=== PATIENT | male | born 1930 | race Caucasian/White ===

== ENCOUNTER → 2016-05-07 12:03 | Day surgery (SDC) | payer MEDICARE, BC ==
[~2016-05-07 12:03] MED LIST: Buffered Lidocaine 1% SYRIN* 3 ML/SYR SYRINGE INTRADERM ONE; EPINEPHrine AMP 1 MG/ML ONE; Lidocaine 2% PF* 5 ML VIAL ONE; Lidocaine 4% TOPICAL* 50 ML TOP.SOLN ONE; Oxymetazoline 0.05% NASAL SPR* 15 ML BTL ONE; Propofol* 10 MG/ML 20 ML BTL IV PUSH ONE; Succinylcholine* 20 MG/ML 10 ML VIAL ONE; fentaNYL* 50 MCG/ML 2 ML VIAL (100 MCG VIAL) ONE
[2016-05-07 14:45] VITALS: BP 139/67
--- NOTE | 2016-05-08 18:52 | OP ---
DATE OF OPERATION: 05/07/16 - [facility] DATE OF : [birth year] SURGEON: Carlos Stubsb MD ANESTHESIOLOGIST: Cristi Wolfe MD ANESTHESIA: General endotracheal anesthesia. PRE-OP DIAGNOSIS: Neoplasm, vocal cord malignant. POST-OP DIAGNOSIS: Neoplasm, vocal cord malignant. OPERATIVE PROCEDURE: Microlaryngoscopy with biopsy and KTP laser ablation of the left vocal card mass under general endotracheal anesthesia. COMPLICATIONS: None. CONDITION: Good. SPECIMENS: Left vocal cord biopsy. DESCRIPTION OF PROCEDURE: The patient was taken to the operating room, placed in supine position on the operating table. General anesthesia was induced and he was orotracheally intubated with laser safe endotracheal tube, turned, and draped for the surgery and the laryngoscope was inserted and suspended from the suspension system. Microscope brought in. There was a firm exophytic mass in the left anterior vocal cord, very suspicious for recurrence of his cancer. Biopsies were taken. I then used the KTP laser to ablate it pass its base into the deep layer of the vocal cord. It was in the very anterior aspect of the vocal cord up to the anterior commissure, did not cross the commissure and did involve the right vocal cord. I used a power setting of 8. Once this was done , the laryngoscope was released and removed, extubated uneventfully and transferred to the recovery room in stable condition. [id number]/[facility] #: [id number] MTDD
== END | disposition home or self-care (01) ==
LOC: OR 12:03
PROVIDERS: ATTEND Otolaryngology
DX: C32.0 Malignant neoplasm of glottis (principal); J44.9 Chronic obstructive pulmonary disease, unspecified; I25.5 Ischemic cardiomyopathy; I48.91 Unspecified atrial fibrillation; Z95.5 Presence of coronary angioplasty implant and graft; E11.8 Type 2 diabetes mellitus with unspecified complications; Z79.4 Long term (current) use of insulin; Z87.891 Personal history of nicotine dependence
CPT/HCPCS: 88305; A9270-GY; J0171; J0330; J2704; J3010

== ENCOUNTER 2016-09-01 11:31 | Observation (INO) | payer MEDICARE, BC, OTHER ==
[~2016-09-01 11:31] MED LIST changes: +Buffered Lidocaine 0.9% SYRIN* 5 ML/SYR SYRINGE INTRADERM ONE; -Buffered Lidocaine 1% SYRIN* 3 ML/SYR SYRINGE INTRADERM ONE; -EPINEPHrine AMP 1 MG/ML ONE; +Famotidine IV* 10 MG/ML 2 ML (20 mg) IV ONE; -Lidocaine 2% PF* 5 ML VIAL ONE; -Lidocaine 4% TOPICAL* 50 ML TOP.SOLN ONE; +Metoclopramide TAB* 10 MG PO ONE; -Oxymetazoline 0.05% NASAL SPR* 15 ML BTL ONE; -Propofol* 10 MG/ML 20 ML BTL IV PUSH ONE; -Succinylcholine* 20 MG/ML 10 ML VIAL ONE; -fentaNYL* 50 MCG/ML 2 ML VIAL (100 MCG VIAL) ONE
[2016-09-01] MEDS ORDERED: Metoclopramide TAB* 10 MG ONE (11:55)
[2016-09-01] MEDS ORDERED: Famotidine IV* 10 MG/ML 2 ML (20 mg) ONE (11:55)
[2016-09-01] MEDS ORDERED: Buffered Lidocaine 0.9% SYRIN* 5 ML/SYR SYRINGE ONE (11:56)
[2016-09-01] MEDS ORDERED: Methylene Blue 0.5 %* 50 MG/10 ML AMP IV ONE (12:24)
[2016-09-01] MEDS ORDERED: Cisatracurium* 2 MG/ML MDV 5 ML ONE (13:19)
[2016-09-01] MEDS ORDERED: Lidocaine 2% PF * 5 ML VIAL ONE (13:19)
[2016-09-01] MEDS ORDERED: Dexamethasone IV* 4 MG/ML 1 ML (4 MG) ONE ×2 (13:19→14:05)
[2016-09-01] MEDS ORDERED: Midazolam* 1 MG/ML 5 ML VIAL (5 MG) ONE (13:19)
[2016-09-01] MEDS ORDERED: Propofol* 10 MG/ML 20 ML BTL IV PUSH ONE (13:19)
[2016-09-01] MEDS ORDERED: Ondansetron INJ* 2 MG/ML VIAL ONE (13:19)
[2016-09-01] MEDS ORDERED: fentaNYL* 50 MCG/ML 2 ML VIAL (100 MCG VIAL) ONE ×2 (13:19→17:02)
[2016-09-01] MEDS ORDERED: EPINEPHrine AMP 1 MG/ML ONE (13:28)
[2016-09-01] MEDS ORDERED: Lidocaine 4% TOPICAL* 50 ML TOP.SOLN ONE (13:28)
[2016-09-01] MEDS ORDERED: Oxymetazoline 0.05% NASAL SPR* 15 ML BTL ONE (13:28)
[2016-09-01] MEDS ORDERED: Ondansetron INJ* 2 MG/ML VIAL IV PRN ×3 (13:38→20:21)
[2016-09-01] MEDS ORDERED: fentaNYL* 50 MCG/ML 2 ML VIAL (100 MCG VIAL) IV PRN (13:38)
[2016-09-01] MEDS ORDERED: Levalbuterol 0.63MG/3ML NEB INH PRN (13:38)
[2016-09-01] MEDS ORDERED: Morphine INJ* 2 MG/ML 1 ML SYRINGE IV PRN (19:50)
[2016-09-01] MEDS ORDERED: Dextrose 50% Syringe 50 ML* 25 GM/50 ML SYRINGE IV PUSH PRN (19:55)
[2016-09-01] MEDS ORDERED: Acetaminophen ADULT LIQ* 650 MG/20.3 ML UDC PO PRN (20:16)
[2016-09-01] MEDS ORDERED: Ibuprofen ADULT LIQ* 600 MG/30 ML UDC PO PRN (20:17)
[2016-09-01] MEDS ORDERED: HYDROcodone/ACET. 7.5/325 LIQ* 15 ML UDC PO PRN ×2 (20:18→20:19)
[2016-09-01 20:22] LABS: BUN/Creatinine Ratio 17.9 (8-20); Calcium 9.4 mg/dL (8.6-10.3); EGFR African American 46.4 (>60); EGFR Non-African American 36.1 (>60); Potassium 5.4 mmol/L (3.5-5.0)
[2016-09-01] MEDS ORDERED: Ondansetron ODT TAB* 4 MG PO PRN (20:22)
[2016-09-01] MEDS ORDERED: Ondansetron INJ* 2 MG/ML VIAL IM PRN (20:22)
[2016-09-01] MEDS ORDERED: Sodium Polystyrene ORAL.SOL* 15 GM/60 ML BTL PO ONE (20:38)
[2016-09-01] MEDS ORDERED: NS 0.9% 1000 ML* 1,000 ML IV SCH (20:45)
[2016-09-01] MEDS ORDERED: Enoxaparin(*) 30 MG/0.3 ML SYR SUBCUT SCH (21:00)
[2016-09-01] MEDS ORDERED: Atorvastatin* 20 MG TAB PO SCH (21:00)
[2016-09-01] MEDS: Insulin LISPRO* 1 UNITS UNIT SUBCUT SCH (21:14)
--- NOTE | 2016-09-02 | HP ---
CC: Dr. Cabrera; Dr. Stubbs * ADMISSION HISTORY AND PHYSICAL: DATE OF ADMISSION: 09/01/16 PRIMARY CARE PROVIDER: Dr. Cabrera. ENT SURGEON: Dr. Stubbs. ADMITTING PROVIDER: CHRISTINE Anderson. SUPERVISING PHYSICIAN: Xavi Rowland MD. * (dictated by CHRISTINE Anderson) CHIEF COMPLAINT: Laryngeal cancer, status post microlaryngoscopy with laser resection. HISTORY OF PRESENT ILLNESS: This is an 85-year-old gentleman with non-insulin dependent diabetes, hypertension, known vocal cord cancer, coronary artery disease, status post PCI and CABG, atrial fibrillation, and chronic kidney disease, who underwent planned laser resection of vocal cord nodule with Dr. Stubbs earlier today. Dr. Stubbs states that the lesion was deep and the resection slightly larger than initially planned, but there were no complications with the procedure and the patient appeared to do well in the recovery area. Due to concern for possible airway edema, recommendation was made to admit the patient to ICU for closer monitoring overnight. In regards to the patient's chronic medical conditions, the patient states that he was recently taken off his oral hypoglycemic agents, specifically his metformin and glipizide. He was told to stop his metformin due to his renal function and then we started on glipizide as a replacement, but that made him dizzy and he has not taken anything since. He checks his glucose as recommended and states that his fasting blood glucose is usually about 140 or so. The patient was seen by Dr. Lebron, his primary branch sales manager before this planned procedure. He is managed for coronary artery disease and atrial fibrillation. Of note, the patient is not on any form of chronic anticoagulation apart from his antiplatelet medication. The patient was unsure of why this may be and I did not see it addressed in his recent cardiology note. It looks like his last cardiac imaging was in July 2015, which demonstrated a normal ejection fraction without evidence of ischemia or infarct. The patient states that he has a moderate sore throat at the moment, but is otherwise feeling fine. He specifically denies any cough or shortness of breath. No abdominal pain, nausea or vomiting. He denies any recent illness or fever. PAST MEDICAL HISTORY: 1. Non-insulin dependent diabetes - no current hypoglycemic agents. 2. Hypertension. 3. Vocal cord cancer, status post laser ablation in August 2015 as well as today. 4. Coronary artery disease, status post CABG and prior PCI. 5. Atrial fibrillation, not anticoagulated. 6. Chronic kidney disease, stage 3. PAST SURGICAL HISTORY: 1. CABG. 2. Carpal tunnel release. 3. PCI. 4. Prior microlaryngoscopy with laser resection. HOME MEDICATIONS: 1. Amlodipine 10 mg p.o. daily. 2. Aspirin 81 mg p.o. daily. 3. Atorvastatin 20 mg p.o. daily. 4. Vitamin B12 500 mcg p.o. daily. 5. Isosorbide 30 mg p.o. daily. 6. Lisinopril 40 mg p.o. daily. 7. Spironolactone 25 mg p.o. daily. 8. Terazosin 2 tablets p.o. daily. SOCIAL HISTORY: The patient lives at home with his . 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 He has occasional alcohol and quit smoking greater than 30 years ago. REVIEW OF SYSTEMS: As noted above in HPI. All other systems reviewed and considered negative. PHYSICAL EXAMINATION GENERAL: This is a very pleasant elderly gentleman, who appears younger than his stated age. He is lying in the hospital bed in no acute distress. VITAL SIGNS: Recent vitals; temperature 98.6 degrees Fahrenheit, pulse 111 beats per minute, respiratory rate is 20, oxygen saturation 98% on 5 L, and blood pressure 148/71 mmHg. HEENT: Head is normocephalic, atraumatic. Mucous membranes are pink and moist. Oropharynx is unremarkable on exam. NECK: Neck is supple and free of lymphadenopathy. RESPIRATORY: Lungs are clear to auscultation without wheezes, crackles, or rhonchi. CARDIOVASCULAR: Heart has a regular rate and rhythm without murmurs, rubs, or gallops. ABDOMEN: Abdomen is soft and nontender to palpation. EXTREMITIES: No edema noted. LABORATORY EVALUATION: Reviewed labs from 08/26/16. CBC showed a white blood cell count of 7500, hemoglobin of 12.1 g/dL, and a platelet count of 259,000. Basic metabolic panel showed sodium of 133, potassium of 5.7, serum bicarb of 19 , BUN 40, creatinine 1.93 and hemoglobin A1c of 6.8%. Potassium this morning prior to surgery was 5.4 mmol/L. IMAGING: EKG shows a rate controlled atrial fibrillation. ASSESSMENT AND PLAN: This is an 85-year-old gentleman with laryngeal cancer, status post microlaryngoscopy with laser resection completed by Dr. Stubbs earlier today. Hospitalist group has been asked to admit this patient postoperatively for airway monitoring. 1. Laryngeal cancer, status post microlaryngoscopy with laser resection - admitted to ICU for overnight observation. Pain is adequately controlled at this time. No restrictions per ENT on oral intake. 2. Hyperkalemia - patient was hyperkalemic on the preop labs completed last week as well as this morning. Repeat basic metabolic panel has been ordered at this time. We will hold his spironolactone and lisinopril for now. Further management per repeat results. 3. Non-insulin dependent diabetes - last hemoglobin A1c was 6.8%. Patient states he is not on any oral medications at this time at home. We will monitor glucose with irregular fingersticks at mealtimes and before bed and cover hyperglycemia with sliding scale Humalog. 4. Coronary artery disease - patient is asymptomatic and will continue medical management. 5. Atrial fibrillation - patient is mildly tachycardic postoperatively, but is otherwise hemodynamically stable. He is not anticoagulated for unknown reasons. We will plan to continue his aspirin. 6. Hypertension - patient is normotensive at this time and continue home antihypertensives with the exception of lisinopril and spironolactone due to his hyperkalemia. 7. Stage 3 chronic kidney disease - avoid nephrotoxic agents including NSAIDs for this patient. Creatinine last week was 1.9. 8. Code status. Patient is full code. 9. Healthcare proxy is his . 10. DVT prophylaxis. Patient will be started on renally adjusted subcu Lovenox and SCD's. 11. Disposition: Patient is being admitted to observation status with anticipated possible discharge for tomorrow morning. CHRISTINE ANDERSON [id number]/[facility] #: [id number] [facility]ENTER[facility]ista
[2016-09-02 04:57] LABS: Hematocrit 38 % (42-52); Hemoglobin 12.7 g/dl (14.0-18.0); Mean Corpuscular HGB Conc 34 g/dl (31-36); Mean Corpuscular Hemoglobin 31 pg (27-31); Mean Corpuscular Volume 91 fL (80-94); Mean Platelet Volume 8 um3 (7.4-10.4); Red Blood Count 4.15 10^6/ul (4.0-5.4); Red Cell Distribution Width 15 % (10.5-15); White Blood Count 15.9 10^3/ul (3.5-10.8)
[2016-09-02 05:12] LABS: BUN/Creatinine Ratio 18.6 (8-20); Calcium 9.4 mg/dL (8.6-10.3); EGFR African American 43.9 (>60); EGFR Non-African American 34.1 (>60); Potassium 5.2 mmol/L (3.5-5.0)
[2016-09-02] MEDS ORDERED: amLODIPine TAB* 5 MG PO SCH (05:15)
--- NOTE | 2016-09-02 05:46 | OP ---
DATE OF OPERATION: 09/01/16 - ROOM #ICU-03 DATE OF : [birth year] SURGEON: Carlos Stubbs MD ANESTHESIOLOGIST: Ernesto Chavez MD ANESTHESIA: General endotracheal. PRE-OP DIAGNOSIS: Laryngeal carcinoma stage T2N0M0. POST-OP DIAGNOSIS: Laryngeal carcinoma stage T2N0M0. OPERATIVE PROCEDURE: Microlaryngoscopy with KTP laser resection of a laryngeal carcinoma under general endotracheal anesthesia. COMPLICATIONS: Good. SPECIMEN: Multiple frozens and one permanent specimen. 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 DESCRIPTION OF PROCEDURE: He was taken to the operating room for resection and placed on the supine position on the operating room table. General anesthesia was induced, and she was orotracheally intubated with a laser-safe tube. All of the surgery was done with low oxygen laser safety procedure. It was an exophytic mass at the anterior commissure; and, under microscopy, we could see it was inferior to the vocal cords as well as at the level of the vocal cords. I took the laser and initially resected it, transecting the anterior third of the vocal cords on either side and coring out the tumor underneath it and deep to it, and took it out as a unit, sending that to pathology. I took some frozen sections and, ventrally, meeting right at the anterior aspect of the resection to left to that and to right to that and along the left vocal cord, he had some positive margins. I went back; we resected some more and used the lasers ablate to ablate, did more frozens, had some more positive margins at the anterior aspect in the middle of the resection site, and then I went back and did some more ablation and resection; and, unfortunately, I came underneath the cricoid cartilage and could not resect anymore in this area. I basically cored out the whole anterior commissure including the anterior half of the membranous vocal cords, the complete anterior commissure from just above the vocal cords down and about a centimeter below the vocal cords in the subglottic region, the margin with the undersurface of the cricoid cartilage anatomically anterolateral , and left and lateral right of my resection site. [id number]/[facility] #: [id number] [facility] [place]
[2016-09-02] MEDS: Insulin LISPRO* 1 UNITS UNIT SUBCUT SCH (08:44)
[2016-09-02] MEDS ORDERED: Terazosin CAP* 1 MG PO SCH (09:00)
[2016-09-02] MEDS ORDERED: Isosorbide Mononitrate ER TAB* 30 MG PO SCH (09:00)
[2016-09-02] MEDS ORDERED: Aspirin Low Dose CHEW TAB* 81 MG PO SCH (09:00)
[2016-09-02 10:13] VITALS: BP 124/65
--- NOTE | 2016-09-03 03:31 | DS ---
CC: Dr. Cabrera * DISCHARGE SUMMARY: DATE OF ADMISSION: 09/01/16 DATE OF DISCHARGE: 09/02/16 HOSPITAL COURSE: This patient is an 85-year-old white male with a history of laryngeal CA, coronary artery disease, A-fib, and hypertension, who was admitted for a laryngectomy, which was performed by Dr. Stubbs. The patient had a partial laryngectomy, which was performed without incident, and was sent to the intensive care unit postoperatively. The patient subsequently did well, and was discharged the following AM, with a followup appointment with Dr. Stubbs scheduled for about 1 week. FINAL DISCHARGE DIAGNOSES: 1. Laryngeal carcinoma, status post partial laryngectomy. 2. Hypertension. 3. Coronary artery disease. 4. Atrial fibrillation. [id number]/[facility] #: [id number] MTDCalista
== END 2016-09-02 10:40 | disposition home or self-care (01) ==
LOC: OR 11:31 → ICU 18:55 → INTOOBSV 18:55
PROVIDERS: ADMIT Otolaryngology; ATTEND Otolaryngology
PROC: 0CBS8ZZ Excision of Larynx, Via Natural or Artificial Opening Endoscopic (ICD-10-PCS; principal; 2016-09-01 13:15)
DX: C32.9 Malignant neoplasm of larynx, unspecified (principal); I25.10 Atherosclerotic heart disease of native coronary artery without angina pectoris; I48.91 Unspecified atrial fibrillation; Z79.01 Long term (current) use of anticoagulants; E11.9 Type 2 diabetes mellitus without complications; I12.9 Hypertensive chronic kidney disease with stage 1 through stage 4 chronic kidney disease, or unspecified chronic kidney disease; N18.3 Chronic kidney disease, stage 3 (moderate); E87.5 Hyperkalemia; Z95.1 Presence of aortocoronary bypass graft; Z79.82 Long term (current) use of aspirin; Z79.899 Other long term (current) drug therapy
CPT/HCPCS: 36415; 80048; 84132; 85025; 87641; 88305; 88331; 96372; A9270-GY; G0378; J0171; J1100; J1650; J2250; J2405; J2704; J3010

== ENCOUNTER 2018-03-01 09:45 | Inpatient (IN) | payer MEDICARE, BC, OTHER ==
[~2018-03-01 09:45] MED LIST changes: -Buffered Lidocaine 0.9% SYRIN* 5 ML/SYR SYRINGE INTRADERM ONE; +Buffered Lidocaine 1% SYRIN* 1 ML/SYRINGE INTRADERM ONE; +Dexamethasone IV* 4 MG/ML 1 ML (4 MG) IV SLOW PU ONE; +DiMENhydriNATE IV* 50 MG/ML VIAL IV PUSH PRN; +Levalbuterol 0.63MG/3ML NEB* UNIT OF USE INH PRN; -Metoclopramide TAB* 10 MG PO ONE; +Morphine 4 MG/ML VIAL (1 ml) 4 MG/ML VIAL IV PRN; +Naloxone* 0.4 MG/ML 1 ML VIAL IV PRN; +Ondansetron TAB* 4 MG ONE; +PROCHLORPERAZINE INJ 5 MG/ML 2 ML VIAL IV PRN; +fentaNYL* 50 MCG/ML 2 ML VIAL (100 MCG VIAL) IV PRN
[2018-03-01] MEDS ORDERED: Ondansetron ODT TAB* 4 MG ONE (10:12)
[2018-03-01] MEDS ORDERED: Famotidine IV* 10 MG/ML 2 ML (20 mg) ONE (10:12)
[2018-03-01] MEDS ORDERED: Dexamethasone IV* 4 MG/ML 1 ML (4 MG) ONE (10:12)
[2018-03-01] MEDS ORDERED: Buffered Lidocaine 1% SYRIN* 1 ML/SYRINGE INTRADERM ONE (10:13)
[2018-03-01] MEDS ORDERED: Midazolam* 1 MG/ML 5 ML VIAL (5 MG) ONE (10:31)
[2018-03-01] MEDS ORDERED: Atracurium* 10 MG/ML 10 ML VIAL ONE (10:31)
[2018-03-01] MEDS ORDERED: KETAMINE HCL* 50 MG/ML 10 ML VIAL ONE (10:31)
[2018-03-01] MEDS ORDERED: fentaNYL* 50 MCG/ML 5 ML VIAL (250 MCG VIAL) ONE (10:31)
[2018-03-01] MEDS: Lactated Ringers 1000 ML Bag* 1,000 ML IV SCH ×2 (10:47→16:12)
[2018-03-01] MEDS ORDERED: Lidocain 1% EPI 1:100,000 * 30 ML MDV ONE (10:59)
[2018-03-01] MEDS ORDERED: Lidocaine 4% TOPICAL* 50 ML TOP.SOLN ONE (10:59)
[2018-03-01] MEDS ORDERED: Oxymetazoline 0.05% NASAL SPR* 15 ML BTL ONE (10:59)
[2018-03-01] MEDS ORDERED: Lidocaine 2% JELLY* 20 ML (for OR use) ONE (10:59)
[2018-03-01] MEDS ORDERED: Lidocaine 2% PF* 10 ML AMP ONE (11:04)
[2018-03-01] MEDS ORDERED: Glycopyrrolate IV* 0.2 MG/ML 1 ML VIAL ONE (12:04)
[2018-03-01] MEDS ORDERED: Metoprolol Tartrate IV* 1 MG/ML 5 ML VIAL ONE (12:04)
[2018-03-01] MEDS ORDERED: Propofol* 10 MG/ML 20 ML BTL ONE (12:04)
[2018-03-01] MEDS ORDERED: Ondansetron INJ* 2 MG/ML VIAL IV PRN (14:23)
[2018-03-01] MEDS ORDERED: Ondansetron ODT TAB* 4 MG PO PRN (14:24)
[2018-03-01] MEDS: Acetaminophen TAB* 325 MG PO SCH ×2 (14:26→19:59)
[2018-03-01] MEDS: Morphine 4 MG/ML VIAL (1 ml) 4 MG/ML VIAL IV PRN (14:34)
--- NOTE | 2018-03-01 14:58 | OP ---
DATE OF OPERATION: 03/01/18 - ROOM #ICU-05 DATE OF : [birth year] SURGEON: Chato Stubbs MD. LOSS PREVENTION/SAFETY DISTRICT MANAGER: Parcel Post Officer for the tracheostomy is Dr. Orozco. A #8 DCT tracheostomy tube was placed, Anisa Rios. PRE-OP DIAGNOSIS: Shortness of breath with compromised airway followed by laryngeal mass. POST-OP DIAGNOSIS: Shortness of breath with compromised airway followed by laryngeal mass. OPERATIVE PROCEDURE: Tracheostomy followed by microlaryngoscopy with biopsies under local with IV sedation followed by general anesthesia. COMPLICATIONS: None. DISPOSITION: Good. SPECIMEN: Left laryngeal biopsies, right laryngeal biopsies, and subglottic biopsies. DESCRIPTION OF PROCEDURE: The patient was taken to the operating room, placed in the supine position on the operative room table with his head extended as much as possible. His neck was prepped with Betadine and he was draped with sterile drapes. He was given IV sedation and his anterior neck over the trachea was injected with 1% lidocaine with 1:100,000 epinephrine. A vertical incision was made just superior to the sternal notch and dissection was taken down through the fat. The strap muscles were visualized. The median raphe opened. The isthmus of the thyroid was cut exposing the anterior tracheal wall. A hook was placed in the coracoid for elevation. A transtracheal injection of 2% lidocaine was performed. Incision was made between 2 tracheal rings with an 11-blade. This was widened with a Richards scissors. The #8 Shiley DCT tracheostomy tube was placed without difficulty. The balloon blown up and he had good CO2 return. This was sutured in place with some 4-0 silks, and then a trach tie was placed around the patient's neck. He was then turned for the microlaryngoscopy. A gauze was placed in his upper teeth to protect his gum and the laryngoscope was inserted and suspended from the suspension system. He has diffused retinoid and supraglottic edema and appeared to have exophytic mass involving his vocal codes, anterior commissure, and subglottis. Biopsies were taken from the left larynx about the level of the vocal cords, right larynx at the level of the vocal cords, and then subglottis at the anterior commissure region. The cottonoids impregnated with oxymetazoline and 4% lidocaine was used for hemostasis and anesthesia. The laryngoscope was removed as was the tooth gumline protector. The patient tolerated this well, no complications, transferred to recovery room in stable condition. [id number]/[facility] #: [id number] VALENTINE
--- NOTE | 2018-03-01 16:13 | HP ---
ADMISSION HISTORY AND PHYSICAL: DATE OF ADMISSION: 03/01/18 REASON FOR ADMISSION: Tracheostomy for laryngeal CA. HISTORY OF PRESENT ILLNESS: This patient is an 87-year-old white male with history of laryngeal CA who underwent a tracheostomy today by Dr. Stubbs and was sent to the intensive care unit following the procedure. The patient has a history of mvh-dbusaob-bkqvbjvau diabetes; hypertension; coronary artery disease, status post PCI and CABG; and atrial fibrillation. He was most recently in the hospital here in August of 2016 where he had a partial resection of his laryngeal tumor and stayed in the intensive care unit overnight. Postoperatively, the patient is alert, oriented and asking to watch television. OUTPATIENT MEDICATIONS: 1. Lisinopril 5 mg daily. 2. Spironolactone 25 mg daily. 3. Terazosin 2 tablets daily. 4. Lipitor 40 mg at bedtime. 5. Aspirin 81 mg daily. 6. Norvasc 5 mg daily. The patient is on no anticoagulant for atrial fibrillation. ALLERGIES: There are no known allergies. REVIEW OF SYSTEMS: Noncontributory. PHYSICAL EXAMINATION GENERAL: Alert and oriented. Appears comfortable VITAL SIGNS: Temperature is 98.6, blood pressure 160/87, heart rate 82 and irregular, respirations 15 and nonlabored, O2 sat is 98% on 4 L of oxygen. HEENT: The trach stoma site shows no active hemorrhage. LUNGS: Clear. CARDIAC: No murmurs or rubs. ABDOMEN: Not distended. EXTREMITIES: No cyanosis or edema. LABORATORY DATA: Nsobp-cv-amuk glucose from 11 o'clock this morning was 171. No other labs from today. IMPRESSION: Satisfactory postop condition. MANAGEMENT PLAN: Will continue outpatient medications and possibly start feeding the patient tomorrow. We will monitor not only blood pressure but also blood sugars. No reason for any concern at this point. CRITICAL CARE TIME: 45 minutes. [id number]/[facility] #: [id number] MTDCalista
[2018-03-01] MEDS: Atorvastatin* 40 MG TAB PO SCH (19:59)
[2018-03-01] MEDS ORDERED: Metoprolol Tartrate IV* 1 MG/ML 5 ML VIAL IV PRN (20:00)
[2018-03-02] MEDS: Acetaminophen TAB* 325 MG PO SCH ×6 (00:44→20:00)
[2018-03-02] MEDS: Lactated Ringers 1000 ML Bag* 1,000 ML IV SCH ×2 (02:07→10:30)
[2018-03-02 05:45] LABS: Hematocrit 42 % (42-52); Hemoglobin 14.2 g/dl (14.0-18.0); Mean Corpuscular HGB Conc 34 g/dl (31-36); Mean Corpuscular Hemoglobin 28 pg (27-31); Mean Corpuscular Volume 84 fL (80-94); Mean Platelet Volume 7.4 fL (7.4-10.4); Platelet Count 201 10^3/ul (150-450); Red Blood Count 5.04 10^6/ul (4.00-5.40); Red Cell Distribution Width 17 % (10.5-15); White Blood Count 13.7 10^3/ul (3.5-10.8)
[2018-03-02 05:53] LABS: INR 0.99 (0.77-1.02)
[2018-03-02 06:17] LABS: Albumin 3.6 g/dL (3.2-5.2); Albumin/Globulin Ratio 0.9 (1-3); BUN/Creatinine Ratio 22.6 (8-20); Calcium 9.7 mg/dL (8.6-10.3); EGFR Non-African American 45.5 (>60); Globulin 3.9 g/dL (2-4); Potassium 4.3 mmol/L (3.5-5.0); Total Bilirubin 0.6 mg/dL (0.2-1.0); Total Protein 7.5 g/dL (6.4-8.9)
[2018-03-02] MEDS ORDERED: Metoprolol Tartrate IV* 1 MG/ML 5 ML VIAL IV PRN ×2 (09:02→13:40)
[2018-03-02] MEDS: Lisinopril TAB* 5 MG PO SCH (13:13)
[2018-03-02] MEDS: Isosorbide Mononitrate ER TAB* 30 MG PO SCH (13:13)
[2018-03-02] MEDS: Cyanocobalamin TAB* 500 MCG PO SCH (13:13)
[2018-03-02] MEDS: amLODIPine TAB* 5 MG PO SCH (13:13)
[2018-03-02] MEDS: Spironolactone TAB* 25 MG PO SCH (13:13)
[2018-03-02] MEDS: Terazosin CAP* 1 MG PO SCH (13:13)
[2018-03-02] MEDS ORDERED: Lactated Ringers 1000 ML Bag* 1,000 ML IV SCH (13:42)
--- NOTE | 2018-03-02 18:40 | PN ---
Date of Service: 03/02/18 Critical Care Services: Patient had an uneventful day - has been sitting up in a chair - swallowing evaluation - failed liquids - evaluation of solids tomorrow. Vital Signs: Temp Pulse Resp BP SpO2 FiO2 97.5 F 78 24 170/100 99 35 Physical Exam: Gen:Alert, oriented, comfortable HEENT: Trach stoma without active bleeding or purulence Lungs: Clear Extremities: No cyanosis or edema Fluid Balance (Past 24 Hours): 03/02/18 06:59 Intake Total 2530 Output Total 1195 Balance 1335 Weight 130 lb Intake: IV Fluids 2530 LR 2530 Output: Urine 970 Coleman 225 Other: Estimated Void Estimated Stool Amount Estimated Blood Loss MINIMAL Comment Other Amount Description no uop this hour Labs: Laboratory Results - last 24 hr 03/02/18 03/02/18 03/02/18 05:32 05:32 05:32 WBC 13.7 H RBC 5.04 Hgb 14.2 Hct 42 MCV 84 MCH 28 MCHC 34 RDW 17 H Plt Count 201 MPV 7.4 INR (Anticoag Therapy) 0.99 Sodium 139 Potassium 4.3 Chloride 102 Carbon Dioxide 29 Anion Gap 8 BUN 33 H Creatinine 1.46 H Est GFR ( Amer) 55.0 Est GFR (Non-Af Amer) 45.5 BUN/Creatinine Ratio 22.6 H Glucose 164 H Calcium 9.7 Total Bilirubin 0.60 AST 15 ALT 10 Alkaline Phosphatase 96 Total Protein 7.5 Albumin 3.6 Globulin 3.9 Albumin/Globulin Ratio 0.9 L Studies: Swallowing evaluation - as mentioned. Nutrition: Nothing today Impression: Doing well, but we need to address nutrition soon. Plan: Finish swallowing evaluation tomorrow and start appropriate nutrition support.
[2018-03-02] MEDS: Atorvastatin* 40 MG TAB PO SCH (20:00)
--- NOTE | 2018-03-02 20:17 | CONS ---
CONSULTATION REPORT: DATE OF CONSULT: 03/02/18 HISTORY OF PRESENT ILLNESS: The patient is postop day 1 from his tracheostomy. He is doing well. He is sitting in a chair comfortably, tolerating the trach. Apparently, he had a bedside swallow that showed a little blue dye coming out from around the trach, so they have kept him n.p.o. PHYSICAL EXAM: He is alert and oriented, doing well with the trach, sitting in a chair. Stoma is clear. I had him eat some applesauce and he had no problems with that. We did this after letting the air down from the balloon. ASSESSMENT: The patient is doing well on postop day 1 after his tracheostomy. I am going to allow him to have a pureed diet. Slight trach aspiration is acceptable. We are to leave the balloon on the tracheostomy tube deflated and continue postoperative care. [id number]/[facility] #: [id number] MTDD
[2018-03-03] MEDS: Acetaminophen TAB* 325 MG PO SCH ×6 (00:42→20:12)
[2018-03-03] MEDS: Morphine 4 MG/ML VIAL (1 ml) 4 MG/ML VIAL IV PRN ×2 (06:35→21:15)
[2018-03-03] MEDS: Cyanocobalamin TAB* 500 MCG PO SCH (10:00)
[2018-03-03] MEDS: Lisinopril TAB* 5 MG PO SCH (10:00)
[2018-03-03] MEDS: amLODIPine TAB* 5 MG PO SCH (10:00)
[2018-03-03] MEDS: Terazosin CAP* 1 MG PO SCH (10:00)
[2018-03-03] MEDS: Isosorbide Mononitrate ER TAB* 30 MG PO SCH (10:00)
[2018-03-03] MEDS: Spironolactone TAB* 25 MG PO SCH (10:01)
[2018-03-03] MEDS: Lactated Ringers 1000 ML Bag* 1,000 ML IV SCH (12:27)
--- NOTE | 2018-03-03 13:34 | PN ---
Date of Service: 03/03/18 Critical Care Services: Patient continues to do well clinically. Is up in a chair today and tolerating pureed foods. Vital Signs: Temp Pulse Resp BP SpO2 FiO2 98 F 94 17 95/53 94 35 Physical Exam: Gen:Alert, oriented HEENT: Trach stoma site without active bleeding or purulence. Lungs: Clear Extremities: No cyanosis or edema Fluid Balance (Past 24 Hours): 03/02/18 03/03/18 06:59 06:59 Intake Total 2530 2106 Output Total 1195 1735 Balance 1335 371 Weight 130 lb 4.691 oz 128 lb 1.417 oz Intake: IV Fluids 2530 2106 LR 2530 2106 Output: Urine 970 1735 Coleman 225 Other: Estimated Void Small Estimated Stool Amount Medium Estimated Blood Loss MINIMAL Comment Labs: None today Studies: None today Nutrition: Oral pureed diet Impression: Doing well clinically. Plan: Continue present regimen of care. Decision to be made about further surgery next week.
[2018-03-03] MEDS: Isosorbide Dinitrate TAB* 10 MG PO SCH ×2 (15:09→21:16)
[2018-03-03] MEDS: Atorvastatin* 40 MG TAB PO SCH (21:15)
[2018-03-04] MEDS: Acetaminophen TAB* 325 MG PO SCH ×7 (00:27→21:34)
[2018-03-04] MEDS: Lisinopril TAB* 5 MG PO SCH (08:21)
[2018-03-04] MEDS: amLODIPine TAB* 5 MG PO SCH (08:21)
[2018-03-04] MEDS: Terazosin CAP* 1 MG PO SCH (08:21)
[2018-03-04] MEDS: Cyanocobalamin TAB* 500 MCG PO SCH (08:21)
[2018-03-04] MEDS: Spironolactone TAB* 25 MG PO SCH (08:21)
[2018-03-04] MEDS: Isosorbide Dinitrate TAB* 10 MG PO SCH ×3 (08:21→20:41)
--- NOTE | 2018-03-04 10:00 | CONS ---
CONSULTATION REPORT: DATE OF CONSULT: 03/04/18 HISTORY OF PRESENT ILLNESS: The patient is doing well on postop day 3 from his tracheostomy. His diet is still a bit limited apparently because of some trace aspiration. I think this is expected and is not a concern at this time. His stoma and trach is clear and the cannula is removed and he was suctioned. Small amount of thick, yellow phlegm was suctioned. 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 All biopsy sites were positive. 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 I spoke to Dr. Soto who does not think that there is any further radiation that can be given to this area. PLAN/RECOMMENDATIONS: My recommendation is that he needs to have a total laryngectomy performed. We discussed what this is and I kimberley it out. It will disconnect his esophagus from his trachea and showed him how the trachea is sewn to the skin and how the esophagus is reformed the 2 structures. With time or at the time of the original surgery, a tracheoesophageal puncture prosthesis will be placed to allow him to talk. He would like to get home to pay bills and take care of some stuff and so the plan hopefully will be to get him out of the hospital early next week and bring him back for this surgery. [id number]/[facility] #: [id number] MTDD
[2018-03-04] MEDS: Lactated Ringers 1000 ML Bag* 1,000 ML IV SCH (11:00)
--- NOTE | 2018-03-04 11:57 | PN ---
Date of Service: 03/03/18 Critical Care Services: Clinically stable - per Dr. Stubbs, patient has recurrent laryngeal CA and will undergo further surgery at a later time. Patient is eating pureed food and tolerating it. No specific complaints today. Vital Signs: Temp Pulse Resp BP SpO2 FiO2 97.8 F 81 16 145/70 96 35 Physical Exam: Gen:Alert, oriented, comfortable HEENT: Trach stoma without active bleeding or purulence Lungs: Clear Extremities:No cyanosis or edema Fluid Balance (Past 24 Hours): 03/03/18 03/04/18 06:59 06:59 Intake Total 2106 1332 Output Total 1735 700 Balance 371 632 Weight 128 lb 132 lb Intake: IV Fluids 2106 375 LR 2106 375 IVPB 957 LR 957 Output: Urine 1735 700 Coleman Other: Estimated Void Small Estimated Stool Amount Medium Estimated Blood Loss Comment Other Amount Description Labs: None today Studies: None today Nutrition: Pureed food Impression: Doing well after tracheostomy. Plan: Continue general supportive care.
[2018-03-04] MEDS: Atorvastatin* 40 MG TAB PO SCH (20:41)
[2018-03-05] MEDS: Acetaminophen TAB* 325 MG PO SCH ×6 (02:51→23:59)
[2018-03-05] MEDS: Spironolactone TAB* 25 MG PO SCH (08:07)
[2018-03-05] MEDS: amLODIPine TAB* 5 MG PO SCH (08:07)
[2018-03-05] MEDS: Isosorbide Dinitrate TAB* 10 MG PO SCH ×3 (08:07→20:19)
[2018-03-05] MEDS: Lisinopril TAB* 5 MG PO SCH (08:07)
[2018-03-05] MEDS: Terazosin CAP* 1 MG PO SCH (08:07)
[2018-03-05] MEDS: Cyanocobalamin TAB* 500 MCG PO SCH (08:07)
[2018-03-05] MEDS: Atorvastatin* 40 MG TAB PO SCH (20:19)
[2018-03-05] MEDS: Morphine 4 MG/ML VIAL (1 ml) 4 MG/ML VIAL IV PRN (20:20)
--- NOTE | 2018-03-05 21:01 | CONS ---
CONSULTATION NOTE: DATE OF CONSULT: 03/05/18. HISTORY: The patient has been doing well. He was up walking yesterday, continues to be on a pureed diet. I had talked to him about the cancer and plan for surgery. He would try to like to do it during this admission if he can. The sutures on the tracheostomy tube were cut. The old tracheostomy tube was removed and a #8 fenestrated uncuffed tracheostomy tube was placed with a tie. This was done with Respiratory Therapy. The tract is maturing nicely without any complications . ASSESSMENT: The patient doing well. Our recommendation is that I spoke to the patient, he would like to try to get his total laryngectomy done during this admission if we can get it towards the beginning of next week and I will look into that. I spoke to Nutrition about making sure that he is getting enough calories with the planned surgery. [id number]/[facility] #: [id number] MTDD
[2018-03-06] MEDS: Acetaminophen TAB* 325 MG PO SCH ×3 (03:35→10:43)
[2018-03-06] MEDS: Terazosin CAP* 1 MG PO SCH (08:17)
[2018-03-06] MEDS: Isosorbide Dinitrate TAB* 10 MG PO SCH ×3 (08:22→20:22)
[2018-03-06] MEDS: amLODIPine TAB* 5 MG PO SCH (08:22)
[2018-03-06] MEDS: Cyanocobalamin TAB* 500 MCG PO SCH (08:22)
[2018-03-06] MEDS: Lisinopril TAB* 5 MG PO SCH (08:22)
[2018-03-06] MEDS: Spironolactone TAB* 25 MG PO SCH (08:22)
--- NOTE | 2018-03-06 09:38 | PN ---
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 Denies pain, respiratory distress No significant overnight events Vital Signs: Temp Pulse Resp BP SpO2 FiO2 98.3 F 80 21 140/71 92 35 03/06/18 08:00 03/06/18 09:01 03/06/18 09:01 03/06/18 09:00 03/06/18 09:01 03/06 08:00 Physical Exam: Gen:Alert, oriented, comfortable. HEENT: Trach stoma without active bleeding or purulence. Tracheostomy in place. Some purulent material noted in the tracheostomy. Lungs: air entry bilaterally. No wheezes Cardiac: S1S2, RRR Abdomen: SNTND, +BS Extremities:No cyanosis or edema Neuro:AAO X 3, no focal deficits Fluid Balance (Past 24 Hours): I= O= Net Intake & Output 03/04/18 03/05/18 03/06/18 03/07/18 06:59 06:59 06:59 06:59 Intake Total 9138 450 8732 Output Total 700 925 650 550 Balance 632 -302 550 -550 Weight 132 lb 7.965 oz 133 lb 13.129 oz 133 lb 6.075 oz Intake: IV Fluids 375 623 450 LR 375 623 450 IVPB 957 LR 957 Oral 750 Output: Urine 700 925 650 550 Other: # Bowel Movements 1 Estimated Stool Amount Large ADLs: Meal Record Start: 03/01/18 13: 47 Freq: 09,13,18 Status: Inactive Protocol: Created 03/01/18 13:47 System (Rec: 03/01/18 13:47 System ICU-C16) Document 03/01/18 18:00 [id number] (Rec: 03/01/18 18:11 RMR3649 ICU-C16) Document 03/02/18 10:00 MCU6162 (Rec: 03/02/18 10:11 OLT6352 ICU-C16) Document 03/02/18 13:00 JGB0575 (Rec: 03/02/18 16:04 BCM8186 ICU-C16) Document 03/02/18 18:00 DYG0745 (Rec: 03/02/18 19:38 SBA4879 ICU-C16) ADLs: Meal Record Start: 03/03/18 08: 01 Freq: 09,13,18 Status: Active Protocol: Created 03/03/18 08:01 GCG5891 (Rec: 03/03/18 08:01 NJX5473 ICU-C25) Document 03/03/18 09:00 UYL0318 (Rec: 03/03/18 10:41 CXZ7594 ICU-C15) Document 03/03/18 13:00 VCL9701 (Rec: 03/03/18 14:09 WFR2100 ICU-C15) Document 03/03/18 18:36 NGB2256 (Rec: 03/03/18 18:37 KBM1587 ICU-C15) Document 03/04/18 09:00 KOJ8070 (Rec: 03/04/18 09:48 ODH2638 ICU-C15) Document 03/04/18 13:00 MTS5756 (Rec: 03/04/18 13:33 LQN0637 ICU-C11) Document 03/05/18 10:02 MFL8334 (Rec: 03/05/18 10:03 IKK4130 ICU-M29) Document 03/05/18 14:13 OHT8741 (Rec: 03/05/18 14:13 IEI6228 ICU-C12) Document 03/05/18 18:52 MHN5298 (Rec: 03/05/18 18:52 YPQ4166 ICU-C25) Intake and Output Start: 03/01/18 13: 47 Freq: 06,14,2200 Status: Inactive Protocol: Created 03/01/18 13:47 System (Rec: 03/01/18 13:47 System ICU-C16) Document 03/01/18 18:00 JQB6358 (Rec: 03/01/18 18:10 XSO9975 ICU-C16) Document 03/01/18 20:00 DUL9645 (Rec: 03/01/18 20:11 TMG8409 ICU-C16) Document 03/01/18 21:00 JVY7924 (Rec: 03/01/18 22:03 UOQ8989 ICU-C16) Document 03/02/18 01:00 WEP1471 (Rec: 03/02/18 01:39 RRQ4277 ICU-C16) Document 03/02/18 04:00 QNP6698 (Rec: 03/02/18 04:15 MDZ8321 ICU-C16) Document 03/02/18 04:00 BEG3175 (Rec: 03/02/18 04:12 TOW5554 ICU-M32) Document 03/02/18 05:00 QWF2738 (Rec: 03/02/18 05:33 ZQZ1397 ICU-M32) Document 03/02/18 06:00 UKC1594 (Rec: 03/02/18 06:25 UPG4667 ICU-C16) Document 03/02/18 07:27 XHV0259 (Rec: 03/02/18 07:27 AGX1171 ICU-C16) Document 03/02/18 10:10 SIX5818 (Rec: 03/02/18 10:10 TXG7320 ICU-C16) Document 03/02/18 14:17 TJZ8533 (Rec: 03/02/18 14:17 KHJ2924 ICU-C16) Document 03/02/18 15:24 VFS3468 (Rec: 03/02/18 15:24 APQ2192 ICU-C16) Document 03/02/18 18:30 JBH6781 (Rec: 03/02/18 19:28 KKI9499 ICU-C16) Document 03/02/18 19:22 BEH6947 (Rec: 03/02/18 19:22 JJG8098 ICU-M32) Document 03/02/18 21:00 AZI1777 (Rec: 03/02/18 21:43 SIB8775 ICU-C15) Document 03/02/18 23:24 LSG3028 (Rec: 03/02/18 23:24 GPL4001 ICU-M32) Document 03/03/18 01:44 IXI4855 (Rec: 03/03/18 01:44 GGG4050 ICU-C15) Document 03/03/18 02:32 JUH4537 (Rec: 03/03/18 02:32 VTF4199 ICU-C15) Document 03/03/18 05:11 SLE0410 (Rec: 03/03/18 05:11 XFW6621 ICU-C15) Document 03/03/18 06:38 POX1753 (Rec: 03/03/18 06:38 UTG1537 ICU-C15) Intake and Output Start: 03/03/18 08: 01 Freq: DAILY@0600,1400,2200 Status: Active Protocol: Created 03/03/18 08:01 VBL2609 (Rec: 03/03/18 08:01 ZKR8425 ICU-C25) Document 03/03/18 13:43 VBP0009 (Rec: 03/03/18 13:43 KVS8183 ICU-C20) Document 03/03/18 20:25 FUO7033 (Rec: 03/03/18 20:25 MOU3983 ICU-L03) Document 03/03/18 23:42 IQC2797 (Rec: 03/03/18 23:42 QAM6184 ICU-L03) Document 03/04/18 03:00 PIY4750 (Rec: 03/04/18 04:24 MFY3121 ICU-L03) Document 03/04/18 05:02 JZL2936 (Rec: 03/04/18 05:02 NZG8314 ICU-L03) Document 03/04/18 13:23 QPZ3513 (Rec: 03/04/18 13:23 FKY8839 ICU-C15) Document 03/04/18 14:00 SHV7562 (Rec: 03/04/18 14:03 EQG1574 ICU-C15) Document 03/04/18 20:51 ARX3834 (Rec: 03/04/18 20:51 WGD9321 ICU-C15) Document 03/04/18 21:53 SCQ9833 (Rec: 03/04/18 21:53 XVJ6422 ICU-C15) Document 03/04/18 22:52 CUI1986 (Rec: 03/04/18 22:52 SNK3365 ICU-C15) Document 03/05/18 01:58 WPY7763 (Rec: 03/05/18 01:58 HOL7986 ICU-C15) Document 03/05/18 04:00 FCL1253 (Rec: 03/05/18 05:37 LDP3298 ICU-C15) Document 03/05/18 05:55 EQX1683 (Rec: 03/05/18 05:55 GHC6397 ICU-C15) Document 03/05/18 08:11 ITE8459 (Rec: 03/05/18 08:11 EJS4145 ICU-M29) Document 03/05/18 10:04 KSA4691 (Rec: 03/05/18 10:04 ZOE7100 ICU-M29) Document 03/05/18 14:13 FRA4270 (Rec: 03/05/18 14:13 AWC1510 ICU-C12) Document 03/05/18 16:15 ZHZ1755 (Rec: 03/05/18 16:15 INF1167 ICU-C12) Document 03/05/18 22:00 WXU4960 (Rec: 03/06/18 01:57 ZRM1001 ICU-C25) Document 03/06/18 06:00 YEG9349 (Rec: 03/06/18 06:21 CAT4052 ICU-C07) Document 03/06/18 08:51 BJN0168 (Rec: 03/06/18 08:51 PHF8602 ICU-C07) Studies: No radiographic studies today Nutrition: Pureed diet Impression: # Recurrent laryngeal Ca # s/p tracheostomy on 03/02 # hx/o HTN Plan: # Recurrent laryngeal Ca # s/p tracheostomy on 03/02 # hx/o HTN Reviewed pathology of bx of R/L laryngx and subglottic mass 02/08-invasive, moderately differential Squamous cell carcinoma - Anticipate total laryngectomy 03/07 - labs for AM - discontinue LR - Continue current antihypertensive meds Prognosis: Guarded Critical care issues: airway compromise, critical care monitoring Critical Care Time: 40 minutes
[2018-03-06] MEDS ORDERED: Acetaminophen TAB* 325 MG PO PRN (12:00)
--- NOTE | 2018-03-06 20:10 | CONS ---
CONSULTATION REPORT: DATE OF CONSULT: 03/06/18 HISTORY OF PRESENT ILLNESS: The patient is doing well today, and I have been able to arrange surgery for tomorrow. I had a discussion with him about this. The plan is for a total laryngectomy. He understands that I would be removing his voice box to try to remove the cancer. There obviously is no guarantee that we can cure him of this cancer, but at this point with the extent of cancer , that is what is needed surgically. He already has the tracheostomy in place, so his airway is protected and that should not be much of a problem, although airway is always an issue with these type of surgeries. Intraoperatively, the primary risk is bleeding, but the main risk is long-term with the development of infection with a pharyngocutaneous fistula formation. He understands that I will be placing a bypass tube in and through that bypass tube will be an NG tube and he will be tube fed for 2 weeks. If all goes well at 2 weeks, I will remove the NG tube and the bypass tube and start letting him eat. At a inter[employer], I will want to place a tracheoesophageal puncture prosthesis, but in the setting of previous radiation therapy, I am not going to do that at this time. I do want to be able to do a pec flap if I do need some vascularized muscle and I explained to him what that is. The planned surgery is a total laryngectomy with possible pectoralis major flap. [id number]/[facility] #: [id number] MTDD
[2018-03-06] MEDS: Atorvastatin* 40 MG TAB PO SCH (20:22)
[2018-03-07 05:57] LABS: ABS Basophils 0 10^3/ul (0-0.2); ABS Eosinophils 0.3 10^3/ul (0-0.6); ABS Lymphocytes 0.5 10^3/ul (1.0-4.8); ABS Neutrophils 8.6 10^3/ul (1.5-7.7); ABS Nucleated RBC 0 10^3/ul; Eosinophil % 2.7 %; Hematocrit 33 % (42-52); Hemoglobin 11.3 g/dl (14.0-18.0); Lymphocyte % 4.7 %; Mean Corpuscular HGB Conc 35 g/dl (31-36); Mean Corpuscular Hemoglobin 29 pg (27-31); Mean Corpuscular Volume 84 fL (80-94); Mean Platelet Volume 7.3 fL (7.4-10.4); Nucleated Red Blood Cells % 0.1; Platelet Count 195 10^3/ul (150-450); Red Blood Count 3.89 10^6/ul (4.00-5.40); Red Cell Distribution Width 16 % (10.5-15); White Blood Count 10.5 10^3/ul (3.5-10.8)
[2018-03-07 06:06] LABS: INR 1.11 (0.77-1.02)
[2018-03-07 06:15] LABS: BUN/Creatinine Ratio 19.8 (8-20); Calcium 9.2 mg/dL (8.6-10.3); EGFR African American 65.2 (>60); EGFR Non-African American 53.9 (>60); Magnesium 1.8 mg/dL (1.9-2.7); Phosphorus 2.7 mg/dL (2.5-5.0); Potassium 3.8 mmol/L (3.5-5.0)
[2018-03-07] MEDS ORDERED: Metoprolol Tartrate IV* 1 MG/ML 5 ML VIAL ONE (09:10)
[2018-03-07] MEDS: amLODIPine TAB* 5 MG PO SCH (09:12)
[2018-03-07] MEDS: Isosorbide Dinitrate TAB* 10 MG PO SCH ×2 (09:22→10:24)
[2018-03-07] MEDS: Cyanocobalamin TAB* 500 MCG PO SCH (09:22)
[2018-03-07] MEDS: Terazosin CAP* 1 MG PO SCH ×2 (09:23→10:24)
[2018-03-07] MEDS: Spironolactone TAB* 25 MG PO SCH (09:23)
[2018-03-07] MEDS: Lisinopril TAB* 5 MG PO SCH ×2 (09:23→10:24)
[2018-03-07] MEDS ORDERED: Metoprolol Tartrate IV* 1 MG/ML 5 ML VIAL IV ONE (09:25)
--- NOTE | 2018-03-07 09:40 | PN ---
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 Denies pain, respiratory distress No significant overnight events Vital Signs: Temp Pulse Resp BP SpO2 FiO2 98.3 F 82 26 186/87 97 35 03/07/18 08:00 03/07/18 09:01 03/07/18 09:01 03/07/18 09:00 03/07/18 09:01 03/07 08:00 Physical Exam: Gen:Alert, oriented, comfortable. HEENT: NCAT, PERRLA. Tracheostomy in place. Some purulent material noted in the tracheostomy. Lungs: air entry bilaterally. No wheezes Cardiac: S1S2, RRR Abdomen: SNTND, +BS Extremities:No cyanosis or edema Neuro:AAO X 3, no focal deficits Fluid Balance (Past 24 Hours): I= O= Net Intake & Output 03/05/18 03/06/18 03/07/18 03/08/18 06:59 06:59 06:59 06:59 Intake Total 623 1200 1005 Output Total 574 457 5049 400 Balance -302 550 -395 -400 Weight 133 lb 13.129 oz 133 lb 6.075 oz 130 lb 11.746 oz Intake: IV Fluids 623 450 145 LR 623 450 145 Oral 750 860 Output: Urine 925 650 650 400 Coleman 750 Other: Estimated Void Small Date of Last Bowel 03/07/18 Movement # Bowel Movements 1 1 Estimated Stool Amount Large Medium # Voids 1 ADLs: Meal Record Start: 03/01/18 13: 47 Freq: 09,13,18 Status: Inactive Protocol: Created 03/01/18 13:47 System (Rec: 03/01/18 13:47 System ICU-C16) Document 03/01/18 18:00 XIR8794 (Rec: 03/01/18 18:11 LMA7779 ICU-C16) Document 03/02/18 10:00 LSO7342 (Rec: 03/02/18 10:11 NMS3127 ICU-C16) Document 03/02/18 13:00 MCQ7429 (Rec: 03/02/18 16:04 NJZ3830 ICU-C16) Document 03/02/18 18:00 QMN3702 (Rec: 03/02/18 19:38 BGP8955 ICU-C16) ADLs: Meal Record Start: 03/03/18 08: 01 Freq: 09,13,18 Status: Active Protocol: Created 03/03/18 08:01 EGH8327 (Rec: 03/03/18 08:01 GZE1550 ICU-C25) Document 03/03/18 09:00 SOR2468 (Rec: 03/03/18 10:41 MZQ1809 ICU-C15) Document 03/03/18 13:00 BUV8163 (Rec: 03/03/18 14:09 TUF2812 ICU-C15) Document 03/03/18 18:36 RGI9032 (Rec: 03/03/18 18:37 WIV9795 ICU-C15) Document 03/04/18 09:00 EFI1097 (Rec: 03/04/18 09:48 XOY2425 ICU-C15) Document 03/04/18 13:00 NUI8694 (Rec: 03/04/18 13:33 BFO1169 ICU-C11) Document 03/05/18 10:02 TBM5548 (Rec: 03/05/18 10:03 ISI9863 ICU-M29) Document 03/05/18 14:13 TAV1086 (Rec: 03/05/18 14:13 SPJ5706 ICU-C12) Document 03/05/18 18:52 RII1698 (Rec: 03/05/18 18:52 ONN5177 ICU-C25) Document 03/06/18 09:00 KLI9229 (Rec: 03/06/18 11:52 BDO4827 ICU-C07) Document 03/06/18 13:00 YDN3012 (Rec: 03/06/18 13:45 YPM1055 ICU-C07) Document 03/07/18 09:00 OHA0833 (Rec: 03/07/18 09:26 QJV7855 ICU-L03) Intake and Output Start: 03/01/18 13: 47 Freq: 06,14,2200 Status: Inactive Protocol: Created 03/01/18 13:47 System (Rec: 03/01/18 13:47 System ICU-C16) Document 03/01/18 18:00 SEH2333 (Rec: 03/01/18 18:10 XIJ3935 ICU-C16) Document 03/01/18 20:00 SOH2483 (Rec: 03/01/18 20:11 HUV3446 ICU-C16) Document 03/01/18 21:00 GXT4676 (Rec: 03/01/18 22:03 PNA2986 ICU-C16) Document 03/02/18 01:00 XEG6520 (Rec: 03/02/18 01:39 NRS3102 ICU-C16) Document 03/02/18 04:00 CIL3727 (Rec: 03/02/18 04:15 QJB0335 ICU-C16) Document 03/02/18 04:00 SFG1344 (Rec: 03/02/18 04:12 CKD6412 ICU-M32) Document 03/02/18 05:00 JWP2056 (Rec: 03/02/18 05:33 QAA7076 ICU-M32) Document 03/02/18 06:00 FEN8473 (Rec: 03/02/18 06:25 QMA7263 ICU-C16) Document 03/02/18 07:27 KWG8289 (Rec: 03/02/18 07:27 APM2148 ICU-C16) Document 03/02/18 10:10 ASI7273 (Rec: 03/02/18 10:10 LRG1306 ICU-C16) Document 03/02/18 14:17 MKA9085 (Rec: 03/02/18 14:17 OLQ1361 ICU-C16) Document 03/02/18 15:24 WWQ9391 (Rec: 03/02/18 15:24 SYN7419 ICU-C16) Document 03/02/18 18:30 WZY6311 (Rec: 03/02/18 19:28 NUT4860 ICU-C16) Document 03/02/18 19:22 BSU7038 (Rec: 03/02/18 19:22 BXI0742 ICU-M32) Document 03/02/18 21:00 NJE4416 (Rec: 03/02/18 21:43 ALV9496 ICU-C15) Document 03/02/18 23:24 UYZ4086 (Rec: 03/02/18 23:24 LEP0064 ICU-M32) Document 03/03/18 01:44 RZF6801 (Rec: 03/03/18 01:44 QON4772 ICU-C15) Document 03/03/18 02:32 GHV3115 (Rec: 03/03/18 02:32 UAJ6954 ICU-C15) Document 03/03/18 05:11 IZP2993 (Rec: 03/03/18 05:11 KZD3985 ICU-C15) Document 03/03/18 06:38 BOX7071 (Rec: 03/03/18 06:38 LNT2750 ICU-C15) Intake and Output Start: 03/03/18 08: 01 Freq: DAILY@0600,1400,2200 Status: Active Protocol: Created 03/03/18 08:01 WIP1432 (Rec: 03/03/18 08:01 NYC0563 ICU-C25) Document 03/03/18 13:43 SJE6308 (Rec: 03/03/18 13:43 MUB1170 ICU-C20) Document 03/03/18 20:25 ITU4453 (Rec: 03/03/18 20:25 OJA8712 ICU-L03) Document 03/03/18 23:42 NZT3299 (Rec: 03/03/18 23:42 ALI7259 ICU-L03) Document 03/04/18 03:00 IOG6797 (Rec: 03/04/18 04:24 ZDD4904 ICU-L03) Document 03/04/18 05:02 PPW6605 (Rec: 03/04/18 05:02 LRJ1588 ICU-L03) Document 03/04/18 13:23 JXW0442 (Rec: 03/04/18 13:23 FWE9803 ICU-C15) Document 03/04/18 14:00 QBS4756 (Rec: 03/04/18 14:03 FDB4848 ICU-C15) Document 03/04/18 20:51 JRT6935 (Rec: 03/04/18 20:51 DCX9662 ICU-C15) Document 03/04/18 21:53 ZHK0417 (Rec: 03/04/18 21:53 AXG3497 ICU-C15) Document 03/04/18 22:52 KZD6537 (Rec: 03/04/18 22:52 QJT6196 ICU-C15) Document 03/05/18 01:58 DPA8554 (Rec: 03/05/18 01:58 ADX7271 ICU-C15) Document 03/05/18 04:00 GUE9267 (Rec: 03/05/18 05:37 ILL9810 ICU-C15) Document 03/05/18 05:55 KKS9967 (Rec: 03/05/18 05:55 MQI8009 ICU-C15) Document 03/05/18 08:11 GEP8239 (Rec: 03/05/18 08:11 QQQ7054 ICU-M29) Document 03/05/18 10:04 PQP1390 (Rec: 03/05/18 10:04 FVM7412 ICU-M29) Document 03/05/18 14:13 OAZ6908 (Rec: 03/05/18 14:13 IKE4500 ICU-C12) Document 03/05/18 16:15 JUM2279 (Rec: 03/05/18 16:15 TFF0621 ICU-C12) Document 03/05/18 22:00 ZVT7103 (Rec: 03/06/18 01:57 DIL1531 ICU-C25) Document 03/06/18 06:00 JJA2404 (Rec: 03/06/18 06:21 GNP6895 ICU-C07) Document 03/06/18 08:51 LRW5706 (Rec: 03/06/18 08:51 PXU0499 ICU-C07) Document 03/06/18 14:00 XXR4239 (Rec: 03/06/18 14:02 OQB8301 ICU-C07) Document 03/06/18 22:00 KCX9407 (Rec: 03/07/18 00:15 ESQ9827 ICU-C25) Document 03/07/18 06:00 AXD6180 (Rec: 03/07/18 06:53 OMA7179 ICU-C25) Document 03/07/18 08:46 WDT0974 (Rec: 03/07/18 08:47 MRS8512 ICU-L03) Labs: Laboratory Results - last 24 hr 03/07/18 03/07/18 03/07/18 05:30 05:30 05:30 WBC 10.5 RBC 3.89 L Hgb 11.3 L Hct 33 L MCV 84 MCH 29 MCHC 35 RDW 16 H Plt Count 195 MPV 7.3 L Neut % (Auto) 82.6 Lymph % (Auto) 4.7 [place] % (Auto) 9.6 Eos % (Auto) 2.7 Baso % (Auto) 0.4 Absolute Neuts (auto) 8.6 H Absolute Lymphs (auto) 0.5 L Absolute Monos (auto) 1.0 H Absolute Eos (auto) 0.3 Absolute Basos (auto) 0 Absolute Nucleated RBC 0 Nucleated RBC % 0.1 INR (Anticoag Therapy) 1.11 H Sodium 138 Potassium 3.8 Chloride 101 Carbon Dioxide 30 Anion Gap 7 BUN 25 H Creatinine 1.26 H Est GFR ( Amer) 65.2 Est GFR (Non-Af Amer) 53.9 BUN/Creatinine Ratio 19.8 Glucose 153 H Calcium 9.2 Phosphorus 2.7 Magnesium 1.8 L Studies: No radiographic studies today Nutrition: Pureed diet-->NPO for anticipated procedure Impression: # Recurrent laryngeal Ca # s/p tracheostomy on 03/02 # hx/o HTN # CAD Plan: # Recurrent laryngeal Ca # s/p tracheostomy on 03/02 Reviewed pathology of bx of R/L laryngx and subglottic mass 02/08-invasive, moderately differential Squamous cell carcinoma - Anticipate total laryngectomy 03/07 # VIKKI improving - Creatinine has improved from 1.4-->1.2 # hx/o HTN # CAD - Will give am oral antihypertensives (amlodipine, lisinopril, Terazosin) and Isordil - 1x IV lopressor for acute HTN - Holding diuretics in preparation for OR Prognosis: Guarded Critical care issues: airway compromise, critical care monitoring Critical Care Time: 40 minutes
[2018-03-07] MEDS ORDERED: Famotidine IV* 10 MG/ML 2 ML (20 mg) IV ONE (11:00)
[2018-03-07] MEDS ORDERED: Dexamethasone IV* 4 MG/ML 1 ML (4 MG) IV SLOW PU ONE (11:00)
[2018-03-07] MEDS ORDERED: ceFAZolin 2 GM PREMIX in ORs 2 GM/50 ML BAG IVPB ONE (11:58)
[2018-03-07] MEDS ORDERED: ROPIVACAINE 5 MG/ML 30 ML BTL (0.5%) ONE (12:10)
[2018-03-07] MEDS ORDERED: Propofol* 10 MG/ML 20 ML BTL ONE (12:10)
[2018-03-07] MEDS ORDERED: Methylene Blue 0.5 %* 50 MG/10 ML AMP IV ONE (12:12)
[2018-03-07] MEDS ORDERED: Lidocaine 1% MPF wEPI 200,000* 30 ML SDV ONE (12:12)
[2018-03-07] MEDS ORDERED: metroNIDAZOLE IV 500 MG/100ML* 500 MG/100 ML BAG IVPB ONE (12:58)
[2018-03-07] MEDS ORDERED: fentaNYL* 50 MCG/ML 2 ML VIAL (100 MCG VIAL) ONE ×3 (13:05→15:33)
[2018-03-07] MEDS ORDERED: Bacitracin OINTMENT* 0.5% 0.5 oz TUBE ONE (14:39)
[2018-03-07] MEDS ORDERED: Esmolol* 10 MG/ML 10 ML (100 mg) ONE (14:44)
[2018-03-07] MEDS ORDERED: Naloxone* 0.4 MG/ML 1 ML VIAL IV PRN (15:28)
[2018-03-07] MEDS ORDERED: diPHENhydraMINE IV* 50 MG/ML 1 ml VIAL (BENADRYL) IV PRN (15:28)
[2018-03-07] MEDS: fentaNYL* 50 MCG/ML 2 ML VIAL (100 MCG VIAL) IV PRN ×3 (15:49→16:20)
[2018-03-07] MEDS: fentaNYL* 50 MCG/ML 2 ML VIAL (100 MCG VIAL) IV SLOW PU PRN ×3 (16:39→23:52)
[2018-03-07] MEDS: hydrALAZINE IV* 20 MG/ML VIAL IV SLOW PU PRN (16:39)
[2018-03-07] MEDS: ceFAZolin 1 GM* X 3 DOSES POST-OP Q8H (AddVan) IVPB SCH ×2 (21:57)
[2018-03-07] MEDS: metroNIDAZOLE IV 500 MG/100ML* 500 MG/100 ML BAG IVPB SCH (22:22)
--- NOTE | 2018-03-08 01:11 | OP ---
DATE OF OPERATION: 03/07/18 - ROOM #ICU-05 DATE OF : [birth year] SURGEON: Dr. Stubbs. FUNERAL LIMOUSINE DRIVER: Dr. Richardson. ANESTHESIA: General endotracheal anesthesia. PRE-OP DIAGNOSIS: Squamous cell carcinoma of the larynx, stage T3N0M0. POST-OP DIAGNOSIS: Squamous cell carcinoma of the larynx, stage T3N0M0. OPERATIVE PROCEDURE: Total laryngectomy. BLOOD LOSS: About 250 mL. SPECIMENS: Total laryngectomy. DRAINAGE: TRISH x1. DESCRIPTION OF PROCEDURE: The patient previously had a tracheostomy and so he was taken to the operating room and placed in the supine position on the operating table. The tracheostomy tube was removed and a flexible reinforced endotracheal tube was placed into his stoma and sutured in placed to his chest wall. His head was extended and a low-apron incision was made just superior to his stoma and injected with 1% lidocaine with 1:200,000 epinephrine. He was prepped with Betadine and draped in a sterile fashion. Incision was made through the previously demarcated incision. Subplatysmal flaps were raised inferior and superiorly and retracted with some sutures. The laryngectomy was done systematically by following the anterior border of the sternocleidomastoid muscle releasing the omohyoid muscles bilaterally, releasing the strap muscles off of the clavicles to expose the trachea. The isthmus of the thyroid had previously been cut and two lobes were retracted laterally. The pharyngeal constrictors were released off of the thyroid lamina posteriorly. The mucosa of the piriform sinus was elevated off the undersurface of this with a [place] elevator. The hyoid bone was released from its muscular attachment superiorly. Curved Richards was used to release the greater cornu of the hyoid bone and the greater cornu of the thyroid lamina. [place] was placed into the mouth and to the vallecula. The incision was made to make the pharyngotomy. The epiglottis was graft. Curved Richards was used to perform the laryngectomy. The mucosa was cut along the anterior esophagus just inferior to the larynx. The alliance party wall was opened and the trachea was cut and a laryngectomy specimen was removed. The hemostasis was ensured. A Oz[place] bypass tube was placed into his hypopharynx at the base of the tongue and down through the pharyngotomy into the esophagus. Sutures were taken from the skin to the base of the tongue through the Oz[place] tube back up to the base of the tongue and into the skin and sutured through a little rubber tube to hold it in place. A Dobbhoff tube was placed along the Ozuna tube into the stomach and held in place with the NG-tube alva. The pharyngotomy was closed with 3-0 inverting mattress sutures interrupted all the way superiorly. A straight line closure was able to be done at the base of the tongue. The stoma was matured with 3-0 Vicryl through the inferior flap skin and superior flap skin. The previous free edge of the stoma from tracheostomy was excised so we have fresh tissue. The skin was closed with 3- 0 deep dermal Vicryl. A #10 TRISH was placed and sutured with a drain stitch. The skin was stapled and bacitracin was placed. The patient tolerated well, no complications and transferred to the recovery room in stable condition. [id number]/[facility] #: [id number] VALENTINE
[2018-03-08] MEDS: ceFAZolin 1 GM* X 3 DOSES POST-OP Q8H (AddVan) IVPB SCH ×4 (05:13→12:27)
[2018-03-08] MEDS: metroNIDAZOLE IV 500 MG/100ML* 500 MG/100 ML BAG IVPB SCH ×3 (05:36→21:17)
[2018-03-08] MEDS: fentaNYL* 50 MCG/ML 2 ML VIAL (100 MCG VIAL) IV SLOW PU PRN ×5 (08:12→22:23)
[2018-03-08] MEDS: hydrALAZINE IV* 20 MG/ML VIAL IV SLOW PU PRN (11:19)
--- NOTE | 2018-03-08 12:12 | PN ---
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 Stubbs) Patient has no current complains. Denies pain, respiratory distress No significant overnight events Vital Signs: Temp Pulse Resp BP SpO2 FiO2 98.8 F 109 25 181/82 98 35 03/08/18 07:55 03/08/18 11:00 03/08/18 11:26 03/08/18 11:00 03/08/18 11:00 03/08 08:06 Physical Exam: Gen:Alert, oriented, comfortable. HEENT: NCAT, PERRLA. Tracheostomy in place. Drain along the neck draining serosanguinous fluid. Lungs: air entry bilaterally. No wheezes Cardiac: S1S2, RRR Abdomen: SNTND, +BS Extremities:No cyanosis or edema Neuro:AAO X 3, no focal deficits Fluid Balance (Past 24 Hours): I= O= Net Intake & Output 03/06/18 03/07/18 03/08/18 03/09/18 06:59 06:59 06:59 06:59 Intake Total 1200 1005 1517 Output Total 650 1400 2015 200 Balance 550 -395 -498 -200 Weight 133 lb 6.075 oz 130 lb 11.746 oz 135 lb 9.349 oz Intake: IV Fluids 719 271 6844 LR 450 145 800 NS (0.9%) 413 NS 100ML, Flagyl 500MG 100 NS 50ML, Cefazolin 2G 50 IVPB 154 NS (0.9%) 154 Oral 750 860 Output: TRISH #1 70 Urine 408 447 5032 200 Coleman 750 Other: Estimated Void Small Date of Last Bowel 03/07/18 Movement # Bowel Movements 1 1 Estimated Stool Amount Large Medium # Voids 1 ADLs: Meal Record Start: 03/01/18 13: 47 Freq: 09,13,18 Status: Inactive Protocol: Created 03/01/18 13:47 System (Rec: 03/01/18 13:47 System ICU-C16) Document 03/01/18 18:00 [id number] (Rec: 03/01/18 18:11 [id number] ICU-C16) Document 03/02/18 10:00 WAH8312 (Rec: 03/02/18 10:11 [id number] ICU-C16) Document 03/02/18 13:00 [id number] (Rec: 03/02/18 16:04 GOJ9167 ICU-C16) Document 03/02/18 18:00 TQB3215 (Rec: 03/02/18 19:38 LCU8940 ICU-C16) ADLs: Meal Record Start: 03/03/18 08: 01 Freq: 09,13,18 Status: Active Protocol: Created 03/03/18 08:01 [id number] (Rec: 03/03/18 08:01 TNN6976 ICU-C25) Document 03/03/18 09:00 SLL3597 (Rec: 03/03/18 10:41 YBP5371 ICU-C15) Document 03/03/18 13:00 ACP0922 (Rec: 03/03/18 14:09 WEU4922 ICU-C15) Document 03/03/18 18:36 WAL5717 (Rec: 03/03/18 18:37 BMD2164 ICU-C15) Document 03/04/18 09:00 DMA2728 (Rec: 03/04/18 09:48 FGB5954 ICU-C15) Document 03/04/18 13:00 DDD1738 (Rec: 03/04/18 13:33 OEK1210 ICU-C11) Document 03/05/18 10:02 HYU8494 (Rec: 03/05/18 10:03 IWY9875 ICU-M29) Document 03/05/18 14:13 BLU6977 (Rec: 03/05/18 14:13 REU9798 ICU-C12) Document 03/05/18 18:52 EII8950 (Rec: 03/05/18 18:52 GQJ4455 ICU-C25) Document 03/06/18 09:00 JPN6004 (Rec: 03/06/18 11:52 JTN4516 ICU-C07) Document 03/06/18 13:00 FOR0461 (Rec: 03/06/18 13:45 RIB7181 ICU-C07) Document 03/07/18 09:00 SDL0925 (Rec: 03/07/18 09:26 UBZ1121 ICU-L03) Document 03/07/18 17:50 TXI0064 (Rec: 03/07/18 17:50 KXT4598 ICU-L03) Document 03/08/18 09:00 IOL5095 (Rec: 03/08/18 10:02 HAX6834 ICU-C15) Intake and Output Start: 03/01/18 13: 47 Freq: 06,14,2200 Status: Inactive Protocol: Created 03/01/18 13:47 System (Rec: 03/01/18 13:47 System ICU-C16) Document 03/01/18 18:00 WZA2534 (Rec: 03/01/18 18:10 OKT8390 ICU-C16) Document 03/01/18 20:00 RLO7543 (Rec: 03/01/18 20:11 GOZ9769 ICU-C16) Document 03/01/18 21:00 NZY2989 (Rec: 03/01/18 22:03 STG5060 ICU-C16) Document 03/02/18 01:00 ZPT6548 (Rec: 03/02/18 01:39 RIB6356 ICU-C16) Document 03/02/18 04:00 LMQ7747 (Rec: 03/02/18 04:15 SVW5317 ICU-C16) Document 03/02/18 04:00 JCP0247 (Rec: 03/02/18 04:12 KMP9866 ICU-M32) Document 03/02/18 05:00 GCH6437 (Rec: 03/02/18 05:33 CFN4357 ICU-M32) Document 03/02/18 06:00 HDD8418 (Rec: 03/02/18 06:25 WOV4333 ICU-C16) Document 03/02/18 07:27 RSK6900 (Rec: 03/02/18 07:27 ZLJ3285 ICU-C16) Document 03/02/18 10:10 ESS3418 (Rec: 03/02/18 10:10 CLW0154 ICU-C16) Document 03/02/18 14:17 KOB0322 (Rec: 03/02/18 14:17 NLM0479 ICU-C16) Document 03/02/18 15:24 RFY8086 (Rec: 03/02/18 15:24 WNB7404 ICU-C16) Document 03/02/18 18:30 PXK1985 (Rec: 03/02/18 19:28 CYN9528 ICU-C16) Document 03/02/18 19:22 LIE7592 (Rec: 03/02/18 19:22 MPY9587 ICU-M32) Document 03/02/18 21:00 XND5733 (Rec: 03/02/18 21:43 XIB3216 ICU-C15) Document 03/02/18 23:24 EGT8045 (Rec: 03/02/18 23:24 AOC2471 ICU-M32) Document 03/03/18 01:44 GFB4487 (Rec: 03/03/18 01:44 UWP6948 ICU-C15) Document 03/03/18 02:32 POR1060 (Rec: 03/03/18 02:32 LHY6169 ICU-C15) Document 03/03/18 05:11 RBI8088 (Rec: 03/03/18 05:11 NXX0859 ICU-C15) Document 03/03/18 06:38 AMX9193 (Rec: 03/03/18 06:38 BOS3368 ICU-C15) Intake and Output Start: 03/03/18 08: 01 Freq: DAILY@0600,1400,2200 Status: Active Protocol: Created 03/03/18 08:01 JEI4424 (Rec: 03/03/18 08:01 WGQ3846 ICU-C25) Document 03/03/18 13:43 STC1822 (Rec: 03/03/18 13:43 OVZ9897 ICU-C20) Document 03/03/18 20:25 LMY1535 (Rec: 03/03/18 20:25 NPV5663 ICU-L03) Document 03/03/18 23:42 XVN7910 (Rec: 03/03/18 23:42 OQC0239 ICU-L03) Document 03/04/18 03:00 HJU1893 (Rec: 03/04/18 04:24 PNC0464 ICU-L03) Document 03/04/18 05:02 IBH3386 (Rec: 03/04/18 05:02 YME9791 ICU-L03) Document 03/04/18 13:23 ANX3613 (Rec: 03/04/18 13:23 JYO5357 ICU-C15) Document 03/04/18 14:00 FTJ2214 (Rec: 03/04/18 14:03 DAA8055 ICU-C15) Document 03/04/18 20:51 ZGP7263 (Rec: 03/04/18 20:51 UKV8390 ICU-C15) Document 03/04/18 21:53 IET4556 (Rec: 03/04/18 21:53 GZC3874 ICU-C15) Document 03/04/18 22:52 BSR9300 (Rec: 03/04/18 22:52 BEA0763 ICU-C15) Document 03/05/18 01:58 AYK6412 (Rec: 03/05/18 01:58 YJE2854 ICU-C15) Document 03/05/18 04:00 CPM5509 (Rec: 03/05/18 05:37 PJL7280 ICU-C15) Document 03/05/18 05:55 SVB0408 (Rec: 03/05/18 05:55 DAC9677 ICU-C15) Document 03/05/18 08:11 BPS1150 (Rec: 03/05/18 08:11 FLH7106 ICU-M29) Document 03/05/18 10:04 KYA7498 (Rec: 03/05/18 10:04 ZYN7714 ICU-M29) Document 03/05/18 14:13 FIF8139 (Rec: 03/05/18 14:13 BAD7517 ICU-C12) Document 03/05/18 16:15 RSI8027 (Rec: 03/05/18 16:15 GQU4439 ICU-C12) Document 03/05/18 22:00 QUW4504 (Rec: 03/06/18 01:57 YLI8569 ICU-C25) Document 03/06/18 06:00 SQS1108 (Rec: 03/06/18 06:21 BUQ6818 ICU-C07) Document 03/06/18 08:51 YAU2706 (Rec: 03/06/18 08:51 MAV4268 ICU-C07) Document 03/06/18 14:00 CLX8878 (Rec: 03/06/18 14:02 RGL7949 ICU-C07) Document 03/06/18 22:00 RVH1364 (Rec: 03/07/18 00:15 AKE6167 ICU-C25) Document 03/07/18 06:00 JNE9466 (Rec: 03/07/18 06:53 OTO8990 ICU-C25) Document 03/07/18 08:46 GBR4304 (Rec: 03/07/18 08:47 ZGR6389 ICU-L03) Document 03/07/18 17:02 RTO9146 (Rec: 03/07/18 17:02 YTP7689 ICU-L03) Document 03/07/18 17:15 MNQ4427 (Rec: 03/07/18 17:16 SOX1781 ICU-L03) Document 03/07/18 22:00 SXX5561 (Rec: 03/08/18 01:41 IJL2655 ICU-C15) Document 03/08/18 06:00 DIE1634 (Rec: 03/08/18 07:05 CXW2690 ICU-C15) Document 03/08/18 08:16 YEW7224 (Rec: 03/08/18 08:16 UYE6606 ICU-C15) Document 03/08/18 09:00 JTD9014 (Rec: 03/08/18 10:00 AET0737 ICU-C15) Nutrition: Tube feeding Impression: # Recurrent laryngeal Ca s/p total laryngectomy 03/07 # s/p tracheostomy on 03/02 # hx/o HTN # CAD Plan: # 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 Will transfer care to hospitalist service Critical care issues: airway compromise, critical care monitoring Critical Care Time: 40 minutes
[2018-03-09] MEDS: Lactated Ringers 1000 ML Bag* 1,000 ML IV SCH (04:30)
[2018-03-09] MEDS: hydrALAZINE IV* 20 MG/ML VIAL IV SLOW PU PRN (04:31)
[2018-03-09] MEDS: metroNIDAZOLE IV 500 MG/100ML* 500 MG/100 ML BAG IVPB SCH ×3 (04:32→22:00)
[2018-03-09] MEDS: fentaNYL* 50 MCG/ML 2 ML VIAL (100 MCG VIAL) IV SLOW PU PRN ×3 (05:34→09:40)
--- NOTE | 2018-03-09 07:44 | PN ---
Subjective Date of Service: 03/09/18 Interval History: IV fentanyl helps with pain but overall not getting enough pain relief. Objective Active Medications: Aspirin (Aspirin 81 Mg Chew Tab*) 81 mg NG TUBE DAILY [facility] Fentanyl Citrate (Fentanyl*) 25 mcg IV SLOW PU Q2H PRN PRN Reason: PAIN Last Admin: 03/09/18 07:25 Dose: 25 mcg Hydralazine HCl (Apresoline Iv*) 10 mg IV SLOW PU Q6H PRN PRN Reason: SBP>165, HOLD FOR HR<60 Last Admin: 03/09/18 04:31 Dose: 10 mg Lactated Ringer's (Lactated Ringers 1000 Ml Bag*) 1,000 mls @ 25 mls/hr IV PER RATE [facility] Last Admin: 03/09/18 04:30 Dose: 25 mls/hr Metronidazole/Sodium Chloride (Flagyl 500 Mg Ivpb*) 500 mg in 100 mls @ 100 mls /hr IVPB Q8H [facility] Last Admin: 03/09/18 04:32 Dose: 100 mls/hr Metoprolol Tartrate (Lopressor Tab*) 12.5 mg FEED TUBE Q12HR [facility] Ondansetron HCl (Zofran Inj*) 4 mg IV Q6H PRN PRN Reason: NAUSEA/VOMITING Vital Signs - 8 hr 03/09/18 03/09/18 03/09/18 00:00 00:01 00:49 Temperature Pulse Rate 118 101 Respiratory 31 20 23 Rate Blood Pressure 150/85 (mmHg) O2 Sat by Pulse 97 95 Oximetry 03/09/18 03/09/18 03/09/18 01:00 01:01 02:00 Temperature Pulse Rate 86 81 107 Respiratory 24 13 30 Rate Blood Pressure 161/76 180/77 (mmHg) O2 Sat by Pulse 98 99 97 Oximetry 03/09/18 03/09/18 03/09/18 02:01 03:00 03:01 Temperature Pulse Rate 99 83 86 Respiratory 24 22 24 Rate Blood Pressure 151/80 (mmHg) O2 Sat by Pulse 99 97 97 Oximetry 03/09/18 03/09/18 03/09/18 03:20 04:00 04:01 Temperature 98.1 F Pulse Rate 85 84 Respiratory 24 20 20 Rate Blood Pressure 171/86 (mmHg) O2 Sat by Pulse 98 98 Oximetry 03/09/18 03/09/18 03/09/18 05:00 05:01 05:34 Temperature Pulse Rate 89 93 Respiratory 23 21 30 Rate Blood Pressure 134/61 (mmHg) O2 Sat by Pulse 96 97 Oximetry 03/09/18 03/09/18 06:00 07:25 Temperature Pulse Rate 103 Respiratory 28 18 Rate Blood Pressure 136/65 (mmHg) O2 Sat by Pulse 95 Oximetry Oxygen Devices in Use Now: Tracheostomy Collar Appearance: Alert, partly up in ICU bed. In fair spirits. Looks comfortable. Eyes: No Scleral Icterus Respiratory: Symmetrical Chest Expansion and Respiratory Effort, Clear to Auscultation, Clear to Percussion Cardiovascular: NL Sounds; No Murmurs; No JVD, RRR, No Edema, - Extremities: No Edema, No Clubbing, Cyanosis, - Skin: No Rash or Ulcers, No Nodules or Sclerosis, - Neurological: Alert and Oriented x 3, NL Sensation - Nutrition: Malnutrition Diagnosis/Plan Malnutrition Assessment by Registered Dietitian: Malnutrition Assessment Clinical Characteristics Acute,Moderate Malnutrition Assessment: - 6.1% wt loss in past one month Criteria - mild temporal muscle wasting - intake likely <75% EEE x 7 days Malnutrition Assessment: 1. follow CAPACITY PLANNING ANALYST re-evaluation of swallowing Interventions function; NPO at this time 2. follow for potential need for PEG placement 3. offer and begin po supplements when pt ready for some level of po intake Malnutrition Assessment: Goals 1. when safe for po intake, pt will tolerate least-restrictive diet texture without evidence of swallowing difficulty or aspiration 2. adequate po intake to maintain present wt and hydration status 3. achieve and maintain serum electrolytes within normal ranges 4. achieve and maintain regulation of bowel pattern; no constipation (or diarrhea) Result Diagrams: 03/07/18 05:30 03/07/18 05:30 Microbiology and Other Data: Microbiology 03/01/18 14:50 Nasal Screen MRSA (PCR) - Final Nasal Mrsa Not Detected Assess/Plan/Problems-Billing Assessment: - Patient Problems (1) Laryngeal cancer Current Visit: Yes Status: Acute Comment: Recurrent, s/p resection of ca , s/p tracheostomy 08/29/18, s/p total laryngectomy 09/04/18. Satisfactory p -op course. TF as per Dr. Stubbs. PT/OT ordered. Start IV maintenance fluids, reduce rate as NG feedings increased. CBC, BMP 2/1. (2) CAD (coronary artery disease) Current Visit: Yes Status: Acute Code(s): I25.10 - ATHSCL HEART DISEASE OF [place] CORONARY ARTERY W/O ANG PCTRS SNOMED Code(s): 46602730 Comment: S/P CABG. Chronic atrial fib not on AC (other than ASA). Resume ASA per NG tube. Start metoprolol 12.5 mg bid, hold amlodipine, lisinopril, isosorbide. Note HR 82 - 120 so far on 03/09. Routine ECG ordered.
[2018-03-09] MEDS: D5W 1/2 NS KCl 20 Meq 1000 ML* 1,000 ML IV SCH (08:31)
[2018-03-09] MEDS: Metoprolol Tartrate TAB* 25 MG FEED TUBE SCH ×2 (10:15→20:43)
[2018-03-09] MEDS: Aspirin 81 mg CHEW TAB* 81 MG TAB.CHEW NG TUBE SCH (10:15)
[2018-03-09 10:44] LABS: Hematocrit 34 % (42-52); Hemoglobin 11.5 g/dl (14.0-18.0)
[2018-03-09] MEDS: oxyCODONE TAB* 5 MG TAB PRN ×4 (10:45→22:28)
[2018-03-09] MEDS: Acetaminophen ADULT LIQ* 650 MG/20.3 ML UDC PEG TUBE PRN ×3 (10:45→20:43)
[2018-03-09 11:01] LABS: BUN/Creatinine Ratio 27.4 (8-20); Calcium 9.2 mg/dL (8.6-10.3); EGFR African American 60.2 (>60); EGFR Non-African American 49.8 (>60); Potassium 4.1 mmol/L (3.5-5.0)
[2018-03-10] MEDS: D5W 1/2 NS KCl 20 Meq 1000 ML* 1,000 ML IV SCH (00:49)
[2018-03-10] MEDS: oxyCODONE TAB* 5 MG TAB PRN ×5 (03:09→22:07)
[2018-03-10 04:48] LABS: ABS Basophils 0 10^3/ul (0-0.2); ABS Eosinophils 0.2 10^3/ul (0-0.6); ABS Lymphocytes 0.7 10^3/ul (1.0-4.8); ABS Monocytes 0.8 10^3/ul (0-0.8); ABS Neutrophils 9.8 10^3/ul (1.5-7.7); ABS Nucleated RBC 0 10^3/ul; Eosinophil % 1.5 %; Hematocrit 35 % (42-52); Hemoglobin 11.6 g/dl (14.0-18.0); Mean Corpuscular HGB Conc 34 g/dl (31-36); Mean Corpuscular Hemoglobin 28 pg (27-31); Mean Corpuscular Volume 84 fL (80-94); Mean Platelet Volume 7.5 fL (7.4-10.4); Nucleated Red Blood Cells % 0; Platelet Count 245 10^3/ul (150-450); Red Blood Count 4.11 10^6/ul (4.00-5.40); Red Cell Distribution Width 16 % (10.5-15); White Blood Count 11.5 10^3/ul (3.5-10.8)
[2018-03-10 05:04] LABS: BUN/Creatinine Ratio 24.3 (8-20); EGFR African American 59.7 (>60); EGFR Non-African American 49.3 (>60); Potassium 4.2 mmol/L (3.5-5.0)
[2018-03-10] MEDS: metroNIDAZOLE IV 500 MG/100ML* 500 MG/100 ML BAG IVPB SCH ×3 (05:53→22:00)
[2018-03-10] MEDS: Aspirin 81 mg CHEW TAB* 81 MG TAB.CHEW NG TUBE SCH (08:36)
[2018-03-10] MEDS: Metoprolol Tartrate TAB* 25 MG FEED TUBE SCH ×2 (08:36→22:05)
--- NOTE | 2018-03-10 10:47 | PN ---
Subjective Date of Service: 03/10/18 Interval History: TFs started this morning. Currently 15cc/hour. Mr. Maher feels okay, some pain at the trach site, but improved after oxycodone 10mg. No nausea, no shortness of breath, some cough nonproductive, no chest pain or shortness of breath. His family is here visiting. He writes on the board "every thing is good." He says he has been up and walking and feels good when he does. Objective Active Medications: Acetaminophen (Tylenol Adult Liq*) 650 mg PEG TUBE Q4H PRN PRN Reason: PAIN Last Admin: 03/09/18 20:43 Dose: 650 mg Aspirin (Aspirin 81 Mg Chew Tab*) 81 mg NG TUBE DAILY [facility] Last Admin: 03/10/18 08:36 Dose: 81 mg Fentanyl Citrate (Fentanyl*) 25 mcg IV SLOW PU Q2H PRN PRN Reason: PAIN Last Admin: 03/09/18 09:40 Dose: 25 mcg Hydralazine HCl (Apresoline Iv*) 10 mg IV SLOW PU Q6H PRN PRN Reason: SBP>165, HOLD FOR HR<60 Last Admin: 03/09/18 04:31 Dose: 10 mg Metronidazole/Sodium Chloride (Flagyl 500 Mg Ivpb*) 500 mg in 100 mls @ 100 mls /hr IVPB Q8H [facility] Last Admin: 03/10/18 05:53 Dose: 100 mls/hr Potassium Chloride/Dextrose (D5w 1/2 Ns Kcl 20 Meq 1000 Ml*) 1,000 mls @ 100 mls/hr IV PER RATE [facility] Last Admin: 03/10/18 00:49 Dose: 100 mls/hr Metoprolol Tartrate (Lopressor Tab*) 12.5 mg FEED TUBE Q12HR [facility] Last Admin: 03/10/18 08:36 Dose: 12.5 mg Ondansetron HCl (Zofran Inj*) 4 mg IV Q6H PRN PRN Reason: NAUSEA/VOMITING Oxycodone HCl (Roxycodone Tab*) 5 mg .SEE ORDER Q4H PRN PRN Reason: PAIN - MODERATE Last Admin: 03/09/18 10:45 Dose: 5 mg Oxycodone HCl (Roxycodone Tab*) 10 mg .SEE ORDER Q4H PRN PRN Reason: PAIN - SEVERE Last Admin: 03/10/18 08:36 Dose: 10 mg Vital Signs - 8 hr 03/10/18 03/10/18 03/10/18 03:00 03:01 03:14 Temperature 98.2 F Pulse Rate 82 80 Respiratory 19 17 Rate Blood Pressure 179/86 (mmHg) O2 Sat by Pulse 99 98 Oximetry 03/10/18 03/10/18 03/10/18 04:00 05:00 05:01 Temperature Pulse Rate 75 81 74 Respiratory 21 17 17 Rate Blood Pressure 149/73 158/73 (mmHg) O2 Sat by Pulse 98 98 98 Oximetry 03/10/18 03/10/18 03/10/18 05:56 06:00 07:00 Temperature Pulse Rate 99 72 Respiratory 18 19 17 Rate Blood Pressure 155/127 161/80 (mmHg) O2 Sat by Pulse 97 98 Oximetry 03/10/18 08:00 Temperature 98 F Pulse Rate 88 Respiratory 14 Rate Blood Pressure 178/89 (mmHg) O2 Sat by Pulse 99 Oximetry Oxygen Devices in Use Now: Tracheostomy Collar Appearance: alert, sitting up in recliner, appears younger than stated age Eyes: No Scleral Icterus Ears/Nose/Mouth/Throat: - - dry mucosa. trach clean and dry. drain superior to trach. Neck: NL Appearance and Movements; NL JVP Respiratory: Symmetrical Chest Expansion and Respiratory Effort, Clear to Auscultation Cardiovascular: NL Sounds; No Murmurs; No JVD, - - irregular rhythm Abdominal: NL Sounds; No Tenderness; No Distention Lymphatic: No Cervical Adenopathy Extremities: No Edema Skin: No Rash or Ulcers Neurological: Alert and Oriented x 3, NL Sensation, NL Muscle Strength and Tone - Nutrition: Malnutrition Diagnosis/Plan Malnutrition Assessment by Registered Dietitian: Malnutrition Assessment Clinical Characteristics Acute,Moderate Malnutrition Assessment: - 6.1% wt loss in past one month Criteria - mild temporal muscle wasting - intake likely <75% EEE x 7 days Malnutrition Assessment: 1. follow HALL MANAGER re-evaluation of swallowing Interventions function; NPO at this time 2. follow for potential need for PEG placement 3. offer and begin po supplements when pt ready for some level of po intake Malnutrition Assessment: Goals 1. when safe for po intake, pt will tolerate least-restrictive diet texture without evidence of swallowing difficulty or aspiration 2. adequate po intake to maintain present wt and hydration status 3. achieve and maintain serum electrolytes within normal ranges 4. achieve and maintain regulation of bowel pattern; no constipation (or diarrhea) Result Diagrams: 03/10/18 04:37 03/10/18 04:37 Microbiology and Other Data: Microbiology 03/01/18 14:50 Nasal Screen MRSA (PCR) - Final Nasal Mrsa Not Detected Assess/Plan/Problems-Billing Assessment: This is an 87 year old man who has history of recurrent laryngeal SCC who was admitted 03/01 after a tracheostomy and then underwent total laryngectomy 03/07. - Patient Problems (1) Laryngeal cancer Current Visit: Yes Status: Acute Comment: Recurrent, s/p resection of ca , s/p tracheostomy 03/01/18, s/p total laryngectomy 03/07/18 TF diet only--goal is 80ml/hour (currently at 15/hr) I suspect he will need a G-tube for disposition; will discuss with Dr. Stubbs (2) HTN (hypertension) Current Visit: Yes Status: Acute Code(s): I10 - ESSENTIAL (PRIMARY) HYPERTENSION SNOMED Code(s): 12832361 Comment: not at goal; resume lisinopril (3) Atrial fibrillation Current Visit: Yes Status: Acute Code(s): I48.91 - UNSPECIFIED ATRIAL FIBRILLATION SNOMED Code(s): 71646953 Comment: on only ASA at home, resumed yesterday (4) Diabetes mellitus Current Visit: Yes Status: Acute Code(s): E11.9 - TYPE 2 DIABETES MELLITUS WITHOUT COMPLICATIONS SNOMED Code(s): 89234048 Comment: not at goal on TFs on the am BMPs (goal is <180 random) start fingersticks and may need basal insulin (5) CAD (coronary artery disease) Current Visit: Yes Status: Acute Code(s): I25.10 - ATHSCL HEART DISEASE OF [place] CORONARY ARTERY W/O ANG PCTRS SNOMED Code(s): 23267582 Comment: S/P CABG. Continue ASA and metoprolol. Not on statin? Would benefit from one and will start Status and Disposition: Disposition planning pending definitive feeding plan. 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 They are going to need help, and his family can help a little bit, but not consistently. I am concerned about them at home alone. VNS/STR will not accept him with an NG, and he does not really have PT/OT needs anyway. One option is swing status with the NG tube if the plan is for him to trial PO in the next couple weeks. Social Work is involved.
[2018-03-10] MEDS: Lisinopril TAB* 5 MG PO SCH (11:36)
[2018-03-10] MEDS: NS 0.9% 1000 ML** 1,000 ML IV SCH ×2 (13:21→23:41)
[2018-03-10] MEDS ORDERED: Atorvastatin* 20 MG TAB NG TUBE SCH (17:00)
[2018-03-10] MEDS: Atorvastatin* 40 MG TAB NG TUBE SCH (18:09)
--- NOTE | 2018-03-10 19:12 | PN ---
PROGRESS NOTE: DATE OF SERVICE: 03/10/18 HISTORY OF PRESENT ILLNESS: The patient is doing well. He is sitting in a chair all day. The tube feeds were restarted this morning after they had been stopped through the night. The main medical care issue of the day is that there was confusion about how to run these. Stoma was clear and he is breathing well. No discharge. No evidence of fistula formation at this time. ASSESSMENT AND PLAN: The patient is progressing his postoperative care. I have clarified with Dietary and the nurse, his tube feeds which will be 14 hours on during the day, going to 20 meals per hour now, and they will increase by 10 mL a day and for a goal of 80 mL an hour. I have spoken to Respiratory and the ICU director about trying to get him transferred to the floor and they have a plan for nursing care to do that. [id number]/CPS #: [id number] VALENTINE
[2018-03-11] MEDS: oxyCODONE TAB* 5 MG TAB PRN ×6 (02:52→23:55)
[2018-03-11] MEDS: hydrALAZINE IV* 20 MG/ML VIAL IV SLOW PU PRN (04:04)
[2018-03-11] MEDS: metroNIDAZOLE IV 500 MG/100ML* 500 MG/100 ML BAG IVPB SCH ×3 (06:25→23:50)
[2018-03-11] MEDS: NS 0.9% 1000 ML** 1,000 ML IV SCH ×2 (08:24→18:40)
--- NOTE | 2018-03-11 08:26 | PN ---
Subjective Date of Service: 03/11/18 Interval History: Mr. Maher found sitting up in bed this morning, appears uncomfortable. He is tolerating the TF, but he does report he has a "stomachache." He denies nausea, feels he may have passed flatus x1 and reports only one bowel movement fairly recently but is not sure how long ago it is. He does not endorse bloating but feels as if his stomach is uncomfortable. Denies SOB, CP, has nonproductive cough. Recently received pain medication this morning. (weight increased from 130lb yesterday to 146 today; nursing to recheck) Family History: Unchanged from Admission Social History: Unchanged from Admission Past Medical History: Unchanged from Admission Objective Active Medications: Acetaminophen (Tylenol Adult Liq*) 650 mg PEG TUBE Q4H PRN PRN Reason: PAIN Last Admin: 03/09/18 20:43 Dose: 650 mg Aspirin (Aspirin 81 Mg Chew Tab*) 81 mg NG TUBE DAILY [facility] Last Admin: 03/10/18 08:36 Dose: 81 mg Atorvastatin Calcium (Lipitor*) 40 mg NG TUBE 1700 [facility] Last Admin: 03/10/18 18:09 Dose: 40 mg Hydralazine HCl (Apresoline Iv*) 10 mg IV SLOW PU Q6H PRN PRN Reason: SBP>165, HOLD FOR HR<60 Last Admin: 03/11/18 04:04 Dose: 10 mg Metronidazole/Sodium Chloride (Flagyl 500 Mg Ivpb*) 500 mg in 100 mls @ 100 mls /hr IVPB Q8H [facility] Last Admin: 03/11/18 06:25 Dose: 100 mls/hr Sodium Chloride (Ns 0.9% 1000 Ml) 1,000 mls @ 125 mls/hr IV PER RATE [facility] Last Admin: 03/10/18 23:41 Dose: 125 mls/hr Lisinopril (Prinivil Tab*) 5 mg PO DAILY [facility] Last Admin: 03/10/18 11:36 Dose: 5 mg Metoprolol Tartrate (Lopressor Tab*) 12.5 mg FEED TUBE Q12HR [facility] Last Admin: 03/10/18 22:05 Dose: 12.5 mg Ondansetron HCl (Zofran Inj*) 4 mg IV Q6H PRN PRN Reason: NAUSEA/VOMITING Oxycodone HCl (Roxycodone Tab*) 5 mg .SEE ORDER Q4H PRN PRN Reason: PAIN - MODERATE Last Admin: 03/09/18 10:45 Dose: 5 mg Oxycodone HCl (Roxycodone Tab*) 10 mg .SEE ORDER Q4H PRN PRN Reason: PAIN - SEVERE Last Admin: 03/11/18 07:32 Dose: 10 mg Vital Signs - 8 hr 03/11/18 03/11/18 03/11/18 00:40 02:52 03:57 Temperature 98.4 F Pulse Rate 86 Respiratory 18 18 Rate Blood Pressure 172/68 (mmHg) O2 Sat by Pulse 100 100 Oximetry 03/11/18 07:32 Temperature Pulse Rate Respiratory 18 Rate Blood Pressure (mmHg) O2 Sat by Pulse Oximetry Oxygen Devices in Use Now: Tracheostomy Collar Appearance: 87 yo male, appears younger than stated age, alert, sitting up in bed, NAD. Uses white board and picture board to communicate. Eyes: No Scleral Icterus, PERRLA Ears/Nose/Mouth/Throat: - - dry oral mucosa, trach site c/d and without secretions Neck: NL Appearance and Movements; NL JVP Respiratory: Symmetrical Chest Expansion and Respiratory Effort, Clear to Auscultation Cardiovascular: NL Sounds; No Murmurs; No JVD, No Edema, - - irregular rhythm Abdominal: - - BS +, not hyperactive. Diffuse tenderness with palpation, mild distention. Lymphatic: No Cervical Adenopathy Extremities: No Clubbing, Cyanosis Skin: No Rash or Ulcers Neurological: Alert and Oriented x 3, NL Sensation, NL Muscle Strength and Tone Lines/Tubes/Other Access: Clean, Dry and Intact Tracheostomy, Clean, Dry and Intact Naso-enteral Tube - Nutrition: Malnutrition Diagnosis/Plan Malnutrition Assessment by Registered Dietitian: Malnutrition Assessment Clinical Characteristics Acute,Moderate Malnutrition Assessment: - 6.1% wt loss in past one month Criteria - mild temporal muscle wasting - intake likely <75% EEE x 7 days Malnutrition Assessment: 1. follow SELENIUM PLANT OPERATOR re-evaluation of swallowing Interventions function; NPO at this time 2. follow for potential need for PEG placement 3. offer and begin po supplements when pt ready for some level of po intake Malnutrition Assessment: Goals 1. when safe for po intake, pt will tolerate least-restrictive diet texture without evidence of swallowing difficulty or aspiration 2. adequate po intake to maintain present wt and hydration status 3. achieve and maintain serum electrolytes within normal ranges 4. achieve and maintain regulation of bowel pattern; no constipation (or diarrhea) Result Diagrams: 03/10/18 04:37 03/10/18 04:37 Microbiology and Other Data: Microbiology 03/01/18 14:50 Nasal Screen MRSA (PCR) - Final Nasal Mrsa Not Detected Assess/Plan/Problems-Billing Assessment: This is an 87 year old man who has history of recurrent laryngeal SCC who was admitted 03/01 after a tracheostomy and then underwent total laryngectomy 03/07. - Patient Problems (1) Abdominal pain Code(s): R10.9 - UNSPECIFIED ABDOMINAL PAIN Comment: Diffuse, vague pain, afebrile, no nausea Check KUB to evaluate for obstipation/constipation Continue prn ondansetron, trial prn Maalox (2) Laryngeal cancer Comment: Recurrent, s/p resection of ca 09/01/16, s/p tracheostomy 03/01/18, s/p total laryngectomy 03/07/18 TF diet only--goal is 80ml/hour (currently at 20/hr, plan to increase to 30/hr today) Per discussion with Dr. Stubbs, would prefer to not have PEG placed Plan to continue nasoenteral feeds and attempt PO feeds within upcoming 2 weeks (under guidance and direction of ENT). Plan to titrate feedings more quickly if patient tolerating, in order to reach 80/hr goal more quickly if possible. (3) HTN (hypertension) Code(s): I10 - ESSENTIAL (PRIMARY) HYPERTENSION Comment: Hypertensive, not at goal Continue lisinopril, metoprolol (may consider increase in metoprolol if remains hypternsive with reinitation of lisinopril) Continue prn hydralazine (4) Atrial fibrillation Code(s): I48.91 - UNSPECIFIED ATRIAL FIBRILLATION Comment: On only ASA at home, resumed yesterday Rate controlled, continue metoprolol (5) Diabetes mellitus Code(s): E11.9 - TYPE 2 DIABETES MELLITUS WITHOUT COMPLICATIONS Comment: Not at goal on TFs on the am BMPs (goal is <180 random) Better control today Start fingersticks, continue to evaluate for need of basal insulin (6) CAD (coronary artery disease) Code(s): I25.10 - ATHSCL HEART DISEASE OF [place] CORONARY ARTERY W/O ANG PCTRS Comment: S/P CABG. Continue ASA and metoprolol; started on atorvastatin Status and Disposition: Disposition planning pending definitive feeding plan. 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 They are going to need help, and his family can help a little bit, but not consistently. I am concerned about them at home alone. VNS/STR will not accept him with an NG, and he does not really have PT/OT needs anyway. One option is swing status with the NG tube if the plan is for him to trial PO in the next couple weeks. Social Work is involved. Tentative plan for swing status, starting next week, with nasoenteral feedings until able to transition to PO. Attending: Faraz Liriano
[2018-03-11] MEDS ORDERED: Al Hydrox/Mg Hydrox/Simet LIQ* 30 ML UDC PO PRN (08:45)
[2018-03-11] MEDS ORDERED: Aspirin 81 mg CHEW TAB* 81 MG TAB.CHEW PO SCH (09:00)
[2018-03-11] MEDS: Isosorbide Dinitrate TAB* 10 MG PO SCH (09:23)
[2018-03-11] MEDS: Aspirin 81 mg CHEW TAB* 81 MG TAB.CHEW NG TUBE SCH (10:19)
[2018-03-11] MEDS: Lisinopril TAB* 5 MG PO SCH (10:19)
[2018-03-11] MEDS: Metoprolol Tartrate TAB* 25 MG FEED TUBE SCH ×2 (10:19→23:55)
--- NOTE | 2018-03-11 11:32 | PN ---
PROGRESS NOTE: DATE OF VISIT: 03/11/18 HISTORY OF PRESENT ILLNESS: The patient got transferred to the floor and he looked really good this morning. I removed his laryngectomy tube. The incisions are healing nicely. The neck is soft without evidence of swelling or erythema. The dressing over the puncture was removed and that has healed up nicely. The laryngectomy tube was replaced. His tube feeds are at 30 an hour. I spoke with the hospitalist, Ana Mobley, this morning. She is a little bit worried because he was having some stomach pain and ordered a KUB. She will follow up with that. We had a discussion about his tube feeds. My concern is we might be advancing too slowly, but we have to weigh that with his abdominal symptoms. He is postop and does need to heal so increased nutrition would be beneficial. She will keep an eye on him and if possible increase his rate a little bit more today to 35 or 40 an hour if possible. Otherwise, he is doing really well postoperatively and continue postoperative care. [id number]/[facility] #: [id number] VALENTINE
[2018-03-11] MEDS: Atorvastatin* 40 MG TAB NG TUBE SCH (16:13)
--- NOTE | 2018-03-11 17:42 | PN ---
Hospitalist Progress Note Date of Service: 03/11/18 Follow up with patient throughout the day. Stomach discomfort has eased and tube feed has been tolerated at 35. Plan to increase to 40/hr this evening.
[2018-03-12] MEDS: oxyCODONE TAB* 5 MG TAB PRN ×4 (03:55→20:08)
[2018-03-12] MEDS: NS 0.9% 1000 ML** 1,000 ML IV SCH ×2 (04:21→22:22)
[2018-03-12] MEDS: metroNIDAZOLE IV 500 MG/100ML* 500 MG/100 ML BAG IVPB SCH ×4 (06:26→23:19)
[2018-03-12 06:44] LABS: ABS Basophils 0 10^3/ul (0-0.2); ABS Eosinophils 0.2 10^3/ul (0-0.6); ABS Lymphocytes 0.6 10^3/ul (1.0-4.8); ABS Monocytes 0.9 10^3/ul (0-0.8); ABS Neutrophils 12.4 10^3/ul (1.5-7.7); ABS Nucleated RBC 0 10^3/ul; Eosinophil % 1.8 %; Hematocrit 33 % (42-52); Hemoglobin 10.9 g/dl (14.0-18.0); Lymphocyte % 4.3 %; Mean Corpuscular HGB Conc 34 g/dl (31-36); Mean Corpuscular Hemoglobin 28 pg (27-31); Mean Corpuscular Volume 85 fL (80-94); Mean Platelet Volume 7.6 fL (7.4-10.4); Nucleated Red Blood Cells % 0; Platelet Count 204 10^3/ul (150-450); Red Blood Count 3.85 10^6/ul (4.00-5.40); Red Cell Distribution Width 16 % (10.5-15); White Blood Count 14.2 10^3/ul (3.5-10.8)
[2018-03-12 07:00] LABS: BUN/Creatinine Ratio 17.4 (8-20); Calcium 8.6 mg/dL (8.6-10.3); EGFR African American 72.5 (>60); EGFR Non-African American 59.9 (>60); Potassium 4.2 mmol/L (3.5-5.0)
[2018-03-12] MEDS: hydrALAZINE IV* 20 MG/ML VIAL IV SLOW PU PRN (08:28)
[2018-03-12] MEDS: Metoprolol Tartrate TAB* 25 MG FEED TUBE SCH ×2 (08:46→20:08)
[2018-03-12] MEDS: Aspirin 81 mg CHEW TAB* 81 MG TAB.CHEW NG TUBE SCH (08:46)
[2018-03-12] MEDS: Lisinopril TAB* 5 MG PO SCH (08:47)
--- NOTE | 2018-03-12 09:43 | PN ---
Subjective Date of Service: 03/12/18 Interval History: Mr. Maher is feeling ok today. He denies any further abd pain or discomfort. He does have some discomfort around his trach, though RT was performing trach care on my exam. He denies CP, SOB. Tolerating tube feedings well. Most recent rate 35mL/hr. Family History: Unchanged from Admission Social History: Unchanged from Admission Past Medical History: Unchanged from Admission Objective Active Medications: Acetaminophen (Tylenol Adult Liq*) 650 mg PEG TUBE Q4H PRN PAIN Al Hydrox/Mg Hydrox/Simethicone (Maalox Plus*) 30 ml PO Q6H PRN DYSPEPSIA Aspirin (Aspirin 81 Mg Chew Tab*) 81 mg NG TUBE DAILY [facility] Atorvastatin Calcium (Lipitor*) 40 mg NG TUBE 1700 [facility] Hydralazine HCl (Apresoline Iv*) 10 mg IV SLOW PU Q6H PRN SBP>165, HOLD FOR HR< 60 Sodium Chloride (Ns 0.9% 1000 Ml) 1,000 mls @ 125 mls/hr IV PER RATE [facility] Metronidazole/Sodium Chloride (Flagyl 500 Mg Ivpb*) 500 mg in 100 mls @ 100 mls /hr IVPB 0730,1530,2330 [facility] Lisinopril (Prinivil Tab*) 5 mg PO DAILY [facility] Metoprolol Tartrate (Lopressor Tab*) 12.5 mg FEED TUBE Q12HR [facility] Ondansetron HCl (Zofran Inj*) 4 mg IV Q6H PRN NAUSEA/VOMITING Oxycodone HCl (Roxycodone Tab*) 5 mg .SEE ORDER Q4H PRN PAIN - MODERATE Oxycodone HCl (Roxycodone Tab*) 10 mg .SEE ORDER Q4H PRN PAIN - SEVERE Vital Signs - 8 hr 03/12/18 03/12/18 03/12/18 03:34 03:55 08:00 Temperature 98.8 F Pulse Rate 81 Respiratory 20 20 17 Rate Blood Pressure 170/68 (mmHg) O2 Sat by Pulse 100 100 Oximetry 03/12/18 03/12/18 08:03 08:47 Temperature 98.2 F Pulse Rate 67 Respiratory 16 17 Rate Blood Pressure 183/64 (mmHg) O2 Sat by Pulse 100 Oximetry Oxygen Devices in Use Now: Tracheostomy Collar Appearance: Elderly male sitting in bed in NAD Eyes: No Scleral Icterus Ears/Nose/Mouth/Throat: Mucous Membranes Moist Neck: NL Appearance and Movements; NL JVP Respiratory: Symmetrical Chest Expansion and Respiratory Effort, Clear to Auscultation Cardiovascular: NL Sounds; No Murmurs; No JVD, RRR Abdominal: NL Sounds; No Tenderness; No Distention Extremities: No Edema Neurological: Alert and Oriented x 3 Lines/Tubes/Other Access: Clean, Dry and Intact Peripheral IV Nutrition: TEN - Nutrition: Malnutrition Diagnosis/Plan Malnutrition Assessment by Registered Dietitian: Malnutrition Assessment Clinical Characteristics Acute,Moderate Malnutrition Assessment: - 6.1% wt loss in past one month Criteria - mild temporal muscle wasting - intake likely <75% EEE x 7 days Malnutrition Assessment: 1. follow ASP NET PROGRAMMER re-evaluation of swallowing Interventions function; NPO at this time 2. follow for potential need for PEG placement 3. offer and begin po supplements when pt ready for some level of po intake Malnutrition Assessment: Goals 1. when safe for po intake, pt will tolerate least-restrictive diet texture without evidence of swallowing difficulty or aspiration 2. adequate po intake to maintain present wt and hydration status 3. achieve and maintain serum electrolytes within normal ranges 4. achieve and maintain regulation of bowel pattern; no constipation (or diarrhea) Result Diagrams: 03/12/18 06:06 03/12/18 06:06 Assess/Plan/Problems-Billing Assessment: Mr. 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 - Patient Problems (1) Laryngeal cancer Comment: - Recurrent, s/p resection of ca 09/01/16; s/p tracheostomy 03/01/18; s/p total laryngectomy 03/07/[address] Stubbs - Management per ENT - Per discussion with Dr. Stubbs, would prefer to not have PEG placed; plan to continue nasoenteral feeds and attempt PO feeds within upcoming 2 weeks under guidance and direction of ENT - TF diet only; goal is 80mL/hour, currently at 35mL/hr; plan to titrate feedings more quickly if patient tolerating in order to reach 80mL/hr goal (2) Malnutrition Code(s): E46 - UNSPECIFIED PROTEIN-CALORIE MALNUTRITION Comment: - Acute, moderate; see assessment by Trolley Car Operator - Continue tube feedings based on Trolley Car Operator recommendations (3) Atrial fibrillation Code(s): I48.91 - UNSPECIFIED ATRIAL FIBRILLATION Comment: - Rate controlled - Continue aspirin, metoprolol (4) Diabetes mellitus Code(s): E11.9 - TYPE 2 DIABETES MELLITUS WITHOUT COMPLICATIONS Comment: - Better glucose control, 110-180s; goal is <180 random - Finger sticks q4h - Continue to evaluate for need of basal insulin (5) CAD (coronary artery disease) Code(s): I25.10 - ATHSCL HEART DISEASE OF [place] CORONARY ARTERY W/O ANG PCTRS Comment: - Stable - Continue aspirin, metoprolol, atorvastatin (6) HTN (hypertension) Code(s): I10 - ESSENTIAL (PRIMARY) HYPERTENSION Comment: - Hypertensive, SBP 150-180 - Increase lisinopril; continue metoprolol (HR will not tolerate dose increase) , hydralazine PRN (7) DVT prophylaxis Comment: - SCDs (8) Full code status Code(s): Z78.9 - OTHER SPECIFIED HEALTH STATUS Comment: Status and Disposition: Disposition planning pending definitive feeding plan. Tentative plan for swing status, starting next week, with NG feedings until able to transition to PO. Attending: Regla Douglas
[2018-03-12] MEDS: Lisinopril TAB* 10 MG PO SCH (10:44)
[2018-03-12] MEDS: Acetaminophen ADULT LIQ* 650 MG/20.3 ML UDC PEG TUBE PRN (16:54)
[2018-03-12] MEDS: Atorvastatin* 40 MG TAB NG TUBE SCH (16:55)
[2018-03-12] MEDS ORDERED: Potassium Chloride LIQUID* 20 MEQ PACKET NG TUBE ONE (20:44)
[2018-03-13] MEDS: oxyCODONE TAB* 5 MG TAB PRN ×4 (04:45→17:44)
[2018-03-13 05:58] LABS: ABS Basophils 0 10^3/ul (0-0.2); ABS Eosinophils 0.3 10^3/ul (0-0.6); ABS Lymphocytes 0.5 10^3/ul (1.0-4.8); ABS Monocytes 0.8 10^3/ul (0-0.8); ABS Neutrophils 11.6 10^3/ul (1.5-7.7); ABS Nucleated RBC 0 10^3/ul; Eosinophil % 2.4 %; Hematocrit 31 % (42-52); Hemoglobin 10.3 g/dl (14.0-18.0); Lymphocyte % 3.8 %; Mean Corpuscular HGB Conc 34 g/dl (31-36); Mean Corpuscular Hemoglobin 29 pg (27-31); Mean Corpuscular Volume 85 fL (80-94); Mean Platelet Volume 7.3 fL (7.4-10.4); Nucleated Red Blood Cells % 0; Platelet Count 238 10^3/ul (150-450); Red Cell Distribution Width 16 % (10.5-15); White Blood Count 13.2 10^3/ul (3.5-10.8)
[2018-03-13 06:17] LABS: BUN/Creatinine Ratio 18.5 (8-20); Calcium 8.3 mg/dL (8.6-10.3); EGFR African American 69.6 (>60); EGFR Non-African American 57.6 (>60); Potassium 4.2 mmol/L (3.5-5.0)
[2018-03-13] MEDS: NS 0.9% 1000 ML** 1,000 ML IV SCH ×2 (07:24→18:03)
[2018-03-13] MEDS: metroNIDAZOLE IV 500 MG/100ML* 500 MG/100 ML BAG IVPB SCH ×3 (07:25→23:01)
[2018-03-13] MEDS: Acetaminophen ADULT LIQ* 650 MG/20.3 ML UDC PEG TUBE PRN ×2 (07:40→11:54)
[2018-03-13] MEDS: Lisinopril TAB* 10 MG PO SCH (09:18)
[2018-03-13] MEDS: Aspirin 81 mg CHEW TAB* 81 MG TAB.CHEW NG TUBE SCH (09:18)
[2018-03-13] MEDS: Metoprolol Tartrate TAB* 25 MG FEED TUBE SCH ×2 (09:18→20:28)
--- NOTE | 2018-03-13 14:31 | PN ---
Subjective Date of Service: 03/13/18 Interval History: Mr. Maher is feeling ok today. He continues to report some throat pain, but this is manageable. He denies CP, SOB, N/V. Nursing notes that his RUE is slightly edematous today. He has an IV in the AC of this arm. No erythema or pain. Pt reports that this happened earlier during this hospital stay and resolved on its own. Family History: Unchanged from Admission Social History: Unchanged from Admission Past Medical History: Unchanged from Admission Objective Active Medications: Acetaminophen (Tylenol Adult Liq*) 650 mg PEG TUBE Q4H PRN PAIN Al Hydrox/Mg Hydrox/Simethicone (Maalox Plus*) 30 ml PO Q6H PRN DYSPEPSIA Aspirin (Aspirin 81 Mg Chew Tab*) 81 mg NG TUBE DAILY [facility] Atorvastatin Calcium (Lipitor*) 40 mg NG TUBE 1700 [facility] Hydralazine HCl (Apresoline Iv*) 10 mg IV SLOW PU Q6H PRN SBP>165, HOLD FOR HR< 60 Sodium Chloride (Ns 0.9% 1000 Ml) 1,000 mls @ 125 mls/hr IV PER RATE [facility] Metronidazole/Sodium Chloride (Flagyl 500 Mg Ivpb*) 500 mg in 100 mls @ 100 mls /hr IVPB 0730,1530,2330 [facility] Lisinopril (Prinivil Tab*) 10 mg PO DAILY [facility] Metoprolol Tartrate (Lopressor Tab*) 12.5 mg FEED TUBE Q12HR [facility] Ondansetron HCl (Zofran Inj*) 4 mg IV Q6H PRN NAUSEA/VOMITING Oxycodone HCl (Roxycodone Tab*) 5 mg .SEE ORDER Q4H PRN PAIN - MODERATE Oxycodone HCl (Roxycodone Tab*) 10 mg .SEE ORDER Q4H PRN PAIN - SEVERE Vital Signs - 8 hr 03/13/18 03/13/18 03/13/18 07:35 08:00 09:40 Temperature 98.3 F Pulse Rate 78 Respiratory 16 16 18 Rate Blood Pressure 150/68 (mmHg) O2 Sat by Pulse 100 Oximetry 03/13/18 11:13 Temperature 98.4 F Pulse Rate 75 Respiratory 16 Rate Blood Pressure 146/63 (mmHg) O2 Sat by Pulse 98 Oximetry Oxygen Devices in Use Now: Tracheostomy Collar Appearance: Elderly male sitting in bed in NAD Eyes: No Scleral Icterus Ears/Nose/Mouth/Throat: Mucous Membranes Moist Neck: NL Appearance and Movements; NL JVP, Trachea Midline Respiratory: Symmetrical Chest Expansion and Respiratory Effort, Clear to Auscultation Cardiovascular: NL Sounds; No Murmurs; No JVD, - - Irregular Abdominal: NL Sounds; No Tenderness; No Distention Extremities: - - +1 pitting RUE Neurological: Alert and Oriented x 3 Lines/Tubes/Other Access: Clean, Dry and Intact Peripheral IV Nutrition: TEN - Nutrition: Malnutrition Diagnosis/Plan Malnutrition Assessment by Registered Dietitian: Malnutrition Assessment Clinical Characteristics Acute,Moderate Malnutrition Assessment: - 6.1% wt loss in past one month Criteria - mild temporal muscle wasting - intake likely <75% EEE x 7 days Malnutrition Assessment: 1. follow SHOULDER PAD MOLDER re-evaluation of swallowing Interventions function; NPO at this time 2. follow for potential need for PEG placement 3. offer and begin po supplements when pt ready for some level of po intake Malnutrition Assessment: Goals 1. when safe for po intake, pt will tolerate least-restrictive diet texture without evidence of swallowing difficulty or aspiration 2. adequate po intake to maintain present wt and hydration status 3. achieve and maintain serum electrolytes within normal ranges 4. achieve and maintain regulation of bowel pattern; no constipation (or diarrhea) Result Diagrams: 03/13/18 05:15 03/13/18 05:15 Assess/Plan/Problems-Billing Assessment: Mr. 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 - Patient Problems (1) Laryngeal cancer Comment: - Recurrent, s/p resection of ca 09/01/16; s/p tracheostomy 03/01/18; s/p total laryngectomy 03/07/[address] Stubbs - Management per ENT - Per discussion with Dr. Stubbs, would prefer to not have PEG placed; plan to continue nasoenteral feeds and attempt PO feeds within upcoming 2 weeks under guidance and direction of ENT - TF diet only; goal is 80mL/hour, currently at 70mL/hr; plan to titrate feedings more quickly if patient tolerating in order to reach goal (2) Malnutrition Code(s): E46 - UNSPECIFIED PROTEIN-CALORIE MALNUTRITION Comment: - Acute, moderate; see assessment by Compliance Analyst - Continue tube feedings based on Compliance Analyst recommendations (3) Tracheostomy in place Code(s): Z93.0 - TRACHEOSTOMY STATUS Comment: - On 03/01/18 - Trach care as needed (4) Atrial fibrillation Code(s): I48.91 - UNSPECIFIED ATRIAL FIBRILLATION Comment: - Rate controlled - Continue aspirin, metoprolol (5) Diabetes mellitus Code(s): E11.9 - TYPE 2 DIABETES MELLITUS WITHOUT COMPLICATIONS Comment: - Better glucose control, 110-180s; goal is <180 random - Finger sticks q4h - Start glargine 5 units (6) CAD (coronary artery disease) Code(s): I25.10 - ATHSCL HEART DISEASE OF [place] CORONARY ARTERY W/O ANG PCTRS Comment: - Stable - Continue aspirin, metoprolol, atorvastatin (7) HTN (hypertension) Code(s): I10 - ESSENTIAL (PRIMARY) HYPERTENSION Comment: - Hypertensive, SBP 140-150s - Continue lisinopril, metoprolol (HR may not tolerate dose increase), hydralazine PRN (8) DVT prophylaxis Comment: - SCDs (9) Full code status Code(s): Z78.9 - OTHER SPECIFIED HEALTH STATUS Comment: Status and Disposition: Disposition planning pending definitive feeding plan and recommendations from Dr. Stubbs. Tentative plan for swing status, starting next week, with NG feedings until able to transition to PO. Attending: David Choudhary
[2018-03-13] MEDS: Insulin GLARGINE(*) 1 UNITS UNIT SUBCUT SCH (15:15)
[2018-03-13] MEDS: Atorvastatin* 40 MG TAB NG TUBE SCH (17:41)
[2018-03-13] MEDS: hydrALAZINE IV* 20 MG/ML VIAL IV SLOW PU PRN (18:23)
--- NOTE | 2018-03-13 21:15 | PN ---
PROGRESS NOTE: DATE OF VISIT: 03/13/18 HISTORY OF PRESENT ILLNESS: The patient from my perspective is doing quite well. The only concern from respiratory is that when they suction him, it seems that some tube feed comes up that he spits out from the coughing that is induced from the suctioning. A new laryngectomy tube came in and that is longer. The old laryngectomy tube was removed. A little bit of scabbing around the stoma was cleaned. The longer 36 mm laryngectomy tube is placed without difficulty. Incisions are clean, dry and intact. There is no evidence of complication forming. ASSESSMENT AND PLAN: The patient is doing well from my standpoint. We are not out of the alejandra yet because of his previous radiation therapy impeding healing. The risk of fistulization is still for another week. The plan with respiratory therapy and suctioning is to have them turn off the tube feeds 10- 15 minutes prior to suctioning and then restart them after suctioning. Continue his postoperative care. There has been difficulty with discharge planning because of lack of home health to allow tube feeds to continue at home , which need to continue for another week. [id number]/[facility] #: [id number] VALENTINE
[2018-03-14] MEDS: NS 0.9% 1000 ML** 1,000 ML IV SCH (03:03)
[2018-03-14] MEDS: oxyCODONE TAB* 5 MG TAB PRN ×3 (05:55→15:58)
[2018-03-14 06:59] LABS: ABS Basophils 0.1 10^3/ul (0-0.2); ABS Eosinophils 0.1 10^3/ul (0-0.6); ABS Lymphocytes 0.5 10^3/ul (1.0-4.8); ABS Monocytes 0.8 10^3/ul (0-0.8); ABS Neutrophils 12.4 10^3/ul (1.5-7.7); ABS Nucleated RBC 0 10^3/ul; Eosinophil % 0.6 %; Hematocrit 31 % (42-52); Hemoglobin 10.2 g/dl (14.0-18.0); Lymphocyte % 3.9 %; Mean Corpuscular HGB Conc 33 g/dl (31-36); Mean Corpuscular Hemoglobin 28 pg (27-31); Mean Corpuscular Volume 85 fL (80-94); Mean Platelet Volume 7.1 fL (7.4-10.4); Nucleated Red Blood Cells % 0; Platelet Count 276 10^3/ul (150-450); Red Blood Count 3.64 10^6/ul (4.00-5.40); Red Cell Distribution Width 16 % (10.5-15); White Blood Count 13.9 10^3/ul (3.5-10.8)
[2018-03-14 07:21] LABS: BUN/Creatinine Ratio 20.2 (8-20); Calcium 8.4 mg/dL (8.6-10.3); EGFR African American 69.6 (>60); EGFR Non-African American 57.6 (>60); Potassium 4.2 mmol/L (3.5-5.0)
[2018-03-14] MEDS: metroNIDAZOLE IV 500 MG/100ML* 500 MG/100 ML BAG IVPB SCH ×3 (07:33→23:52)
[2018-03-14] MEDS: Aspirin 81 mg CHEW TAB* 81 MG TAB.CHEW NG TUBE SCH (08:00)
[2018-03-14] MEDS: hydrALAZINE IV* 20 MG/ML VIAL IV SLOW PU PRN (08:00)
[2018-03-14] MEDS: Metoprolol Tartrate TAB* 25 MG FEED TUBE SCH ×2 (08:00→20:14)
[2018-03-14] MEDS: Acetaminophen ADULT LIQ* 650 MG/20.3 ML UDC PEG TUBE PRN (08:00)
[2018-03-14] MEDS: Lisinopril TAB* 10 MG PO SCH (08:01)
[2018-03-14 09:56] LABS: Magnesium 2.1 mg/dL (1.9-2.7)
[2018-03-14] MEDS ORDERED: NS 0.9% 1000 ML** 1,000 ML IV SCH (11:37)
[2018-03-14] MEDS ORDERED: Dextrose 50% Syringe 50 ML* 25 GM/50 ML SYRINGE IV PUSH PRN (11:39)
[2018-03-14] MEDS: Insulin LISPRO* 1 UNITS UNIT SUBCUT SCH ×3 (12:30→23:57)
[2018-03-14] MEDS: Insulin GLARGINE(*) 1 UNITS UNIT SUBCUT SCH (16:00)
--- NOTE | 2018-03-14 16:06 | PN ---
Subjective Date of Service: 03/14/18 Interval History: Continues to have soreness in the back of his throat. Reports he feels about the same as yesterday. Denies cp, sob, palpitations, nausea, abd pain, fever/chills. Family History: Unchanged from Admission Social History: Unchanged from Admission Past Medical History: Unchanged from Admission Objective Active Medications: Acetaminophen (Tylenol Adult Liq*) 650 mg PEG TUBE Q4H PRN PRN Reason: PAIN Last Admin: 03/14/18 08:00 Dose: 650 mg Al Hydrox/Mg Hydrox/Simethicone (Maalox Plus*) 30 ml PO Q6H PRN PRN Reason: DYSPEPSIA Aspirin (Aspirin 81 Mg Chew Tab*) 81 mg NG TUBE DAILY [facility] Last Admin: 03/14/18 08:00 Dose: 81 mg Atorvastatin Calcium (Lipitor*) 40 mg NG TUBE 1700 [facility] Last Admin: 03/13/18 17:41 Dose: 40 mg Dextrose (D50w Syringe 50 Ml*) 12.5 gm IV PUSH .FOR FS < 60 - SS PRN PRN Reason: FS < 60 Hydralazine HCl (Apresoline Iv*) 10 mg IV SLOW PU Q6H PRN PRN Reason: SBP>165, HOLD FOR HR<60 Last Admin: 03/14/18 08:00 Dose: 10 mg Metronidazole/Sodium Chloride (Flagyl 500 Mg Ivpb*) 500 mg in 100 mls @ 100 mls /hr IVPB 0730,1530,2330 [facility] Last Admin: 03/14/18 07:33 Dose: 100 mls/hr Insulin Glargine (Lantus(*)) 5 units SUBCUT Q24H [facility] Last Admin: 03/13/18 15:15 Dose: 5 units Insulin Human Lispro (Humalog*) 0 units SUBCUT Q6HR [facility]; Protocol Last Admin: 03/14/18 12:30 Dose: 1 unit Lisinopril (Prinivil Tab*) 10 mg PO DAILY [facility] Last Admin: 03/14/18 08:01 Dose: 10 mg Metoprolol Tartrate (Lopressor Tab*) 12.5 mg FEED TUBE Q12HR [facility] Last Admin: 03/14/18 08:00 Dose: 12.5 mg Ondansetron HCl (Zofran Inj*) 4 mg IV Q6H PRN PRN Reason: NAUSEA/VOMITING Oxycodone HCl (Roxycodone Tab*) 5 mg .SEE ORDER Q4H PRN PRN Reason: PAIN - MODERATE Last Admin: 03/11/18 16:12 Dose: 5 mg Oxycodone HCl (Roxycodone Tab*) 10 mg .SEE ORDER Q4H PRN PRN Reason: PAIN - SEVERE Last Admin: 03/14/18 10:34 Dose: 10 mg Vital Signs - 8 hr 03/14/18 03/14/18 10:34 11:32 Temperature 97.5 F Pulse Rate 66 Respiratory 18 17 Rate Blood Pressure 131/61 (mmHg) O2 Sat by Pulse 100 Oximetry Oxygen Devices in Use Now: Tracheostomy Collar Appearance: Comfortable, NAD Eyes: No Scleral Icterus Ears/Nose/Mouth/Throat: Mucous Membranes Moist Neck: NL Appearance and Movements; NL JVP Respiratory: Symmetrical Chest Expansion and Respiratory Effort, Clear to Auscultation Cardiovascular: NL Sounds; No Murmurs; No JVD, No Edema - Rate Irreg (hx of afib ) Abdominal: NL Sounds; No Tenderness; No Distention Extremities: No Edema Neurological: Alert and Oriented x 3 - Nutrition: Malnutrition Diagnosis/Plan Malnutrition Assessment by Registered Dietitian: Malnutrition Assessment Clinical Characteristics Acute,Moderate Malnutrition Assessment: - 6.1% wt loss in past one month Criteria - mild temporal muscle wasting - intake likely <75% EEE x 7 days Malnutrition Assessment: 1. follow DISTRICT SUPERINTENDENT re-evaluation of swallowing Interventions function; NPO at this time 2. follow for potential need for PEG placement 3. offer and begin po supplements when pt ready for some level of po intake Malnutrition Assessment: Goals 1. when safe for po intake, pt will tolerate least-restrictive diet texture without evidence of swallowing difficulty or aspiration 2. adequate po intake to maintain present wt and hydration status 3. achieve and maintain serum electrolytes within normal ranges 4. achieve and maintain regulation of bowel pattern; no constipation (or diarrhea) Result Diagrams: 03/14/18 06:47 03/14/18 06:47 Additional Lab and Data: Laboratory Results - last 24 hr 03/13/18 03/13/18 03/14/18 17:18 21:42 02:32 WBC RBC Hgb Hct MCV MCH MCHC RDW Plt Count MPV Neut % (Auto) Lymph % (Auto) [place] % (Auto) Eos % (Auto) Baso % (Auto) Absolute Neuts (auto) Absolute Lymphs (auto) Absolute Monos (auto) Absolute Eos (auto) Absolute Basos (auto) Absolute Nucleated RBC Nucleated RBC % Sodium Potassium Chloride Carbon Dioxide Anion Gap BUN Creatinine Est GFR ( Amer) Est GFR (Non-Af Amer) BUN/Creatinine Ratio Glucose POC Glucose (mg/dL) 275 H 236 H 215 H Glucose Meter Confirm Calcium Magnesium 03/14/18 03/14/18 03/14/18 05:56 06:47 06:47 WBC 13.9 H RBC 3.64 L Hgb 10.2 L Hct 31 L MCV 85 MCH 28 MCHC 33 RDW 16 H Plt Count 276 MPV 7.1 L Neut % (Auto) 89.0 Lymph % (Auto) 3.9 [place] % (Auto) 6.0 Eos % (Auto) 0.6 Baso % (Auto) 0.5 Absolute Neuts (auto) 12.4 H Absolute Lymphs (auto) 0.5 L Absolute Monos (auto) 0.8 Absolute Eos (auto) 0.1 Absolute Basos (auto) 0.1 Absolute Nucleated RBC 0 Nucleated RBC % 0 Sodium 141 Potassium 4.2 Chloride 112 H Carbon Dioxide 25 Anion Gap 4 BUN 24 Creatinine 1.19 H Est GFR ( Amer) 69.6 Est GFR (Non-Af Amer) 57.6 BUN/Creatinine Ratio 20.2 H Glucose 164 H POC Glucose (mg/dL) 212 H Glucose Meter Confirm Calcium 8.4 L Magnesium 2.1 03/14/18 03/14/18 10:44 11:38 WBC RBC Hgb Hct MCV MCH MCHC RDW Plt Count MPV Neut % (Auto) Lymph % (Auto) [place] % (Auto) Eos % (Auto) Baso % (Auto) Absolute Neuts (auto) Absolute Lymphs (auto) Absolute Monos (auto) Absolute Eos (auto) Absolute Basos (auto) Absolute Nucleated RBC Nucleated RBC % Sodium Potassium Chloride Carbon Dioxide Anion Gap BUN Creatinine Est GFR ( Amer) Est GFR (Non-Af Amer) BUN/Creatinine Ratio Glucose POC Glucose (mg/dL) 441 H* Glucose Meter Confirm 160 H Calcium Magnesium Microbiology and Other Data: Microbiology 03/01/18 14:50 Nasal Screen MRSA (PCR) - Final Nasal Mrsa Not Detected Assess/Plan/Problems-Billing Assessment: Mr. 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 - Patient Problems (1) Laryngeal cancer Comment: - Recurrent, s/p resection of ca 09/01/16; s/p tracheostomy 03/01/18; s/p total laryngectomy 03/07/[address] Stubbs - Management per ENT - Dr. Stubbs, would prefer to not have PEG placed; plan to continue nasoenteral feeds and attempt PO feeds within upcoming 2 weeks under guidance and direction of ENT - TF diet only; 60 ml/hr for 24 hrs (2) Malnutrition Comment: - Acute, moderate; see assessment by Dramatic Art Teacher - Continue tube feedings based on Dramatic Art Teacher recommendations (3) Tracheostomy in place Comment: - On 03/01/18 - Trach care as needed (4) Atrial fibrillation Comment: - Rate controlled - Continue aspirin, metoprolol - Did have short 6 beat run of VT per nurse. Lytes within normal limits. Asymptomatic. - Cont tele - Cont to monitor and replace lytes as needed (5) CAD (coronary artery disease) Comment: - Stable - Continue aspirin, metoprolol, atorvastatin (6) Diabetes mellitus Comment: - FS in 200s - Finger sticks changed to Q6hr as TF will now be 24 hrs - Cont glargine 5 units - SS added (low dose) (7) HTN (hypertension) Comment: - Hypertensive, SBP 140-150s - Continue lisinopril, metoprolol (HR may not tolerate dose increase), hydralazine PRN (8) DVT prophylaxis Comment: - SCDs (9) Full code status Comment: Status and Disposition: Disposition planning pending definitive feeding plan and recommendations from Dr. Stubbs. Tentative plan for swing status with NG feedings until able to transition to PO. Attending: Faraz Liriano
[2018-03-14] MEDS: Atorvastatin* 40 MG TAB NG TUBE SCH (16:42)
--- NOTE | 2018-03-14 23:50 | PN ---
Progress Note - Progress Note Date of Service: 03/14/18 Note: Paged - Patient vomited with NGT in place. Denies abdominal pain. Has not had BM today. But passing flatus. abdominal film - NGT in proper place, nonspecific dilated loops of bowel. ?Ileus. Will hold NGT feeds overnight and have them reassess in AM.
[2018-03-15] MEDS: Insulin LISPRO* 1 UNITS UNIT SUBCUT SCH ×3 (05:41→20:02)
[2018-03-15 07:10] LABS: ABS Basophils 0.1 10^3/ul (0-0.2); ABS Eosinophils 0.1 10^3/ul (0-0.6); ABS Lymphocytes 0.6 10^3/ul (1.0-4.8); ABS Monocytes 0.6 10^3/ul (0-0.8); ABS Neutrophils 11.8 10^3/ul (1.5-7.7); ABS Nucleated RBC 0 10^3/ul; Eosinophil % 0.7 %; Hematocrit 33 % (42-52); Hemoglobin 10.9 g/dl (14.0-18.0); Lymphocyte % 4.4 %; Mean Corpuscular HGB Conc 33 g/dl (31-36); Mean Corpuscular Hemoglobin 28 pg (27-31); Mean Corpuscular Volume 85 fL (80-94); Mean Platelet Volume 7.9 fL (7.4-10.4); Nucleated Red Blood Cells % 0.1; Platelet Count 296 10^3/ul (150-450); Red Blood Count 3.86 10^6/ul (4.00-5.40); Red Cell Distribution Width 16 % (10.5-15); White Blood Count 13.2 10^3/ul (3.5-10.8)
[2018-03-15 07:26] LABS: BUN/Creatinine Ratio 18.2 (8-20); Calcium 8.7 mg/dL (8.6-10.3); EGFR African American 68.3 (>60); EGFR Non-African American 56.5 (>60); Magnesium 2.1 mg/dL (1.9-2.7); Potassium 4.3 mmol/L (3.5-5.0)
[2018-03-15] MEDS: hydrALAZINE IV* 20 MG/ML VIAL IV SLOW PU PRN (07:49)
[2018-03-15] MEDS: Ondansetron INJ* 2 MG/ML VIAL IV PRN (08:02)
[2018-03-15] MEDS: metroNIDAZOLE IV 500 MG/100ML* 500 MG/100 ML BAG IVPB SCH ×2 (08:08→15:22)
[2018-03-15] MEDS: Lisinopril TAB* 10 MG PO SCH (08:59)
[2018-03-15] MEDS: Aspirin 81 mg CHEW TAB* 81 MG TAB.CHEW NG TUBE SCH (08:59)
[2018-03-15] MEDS ORDERED: NS 0.9% 1000 ML** 1,000 ML IV SCH (09:00)
[2018-03-15] MEDS ORDERED: Al Hydrox/Mg Hydrox/Simet LIQ* 30 ML UDC NG TUBE PRN (09:22)
[2018-03-15] MEDS: Metoprolol Tartrate IV* 1 MG/ML 5 ML VIAL IV SCH ×2 (09:28→15:22)
--- NOTE | 2018-03-15 09:45 | PN ---
Subjective Date of Service: 03/15/18 Interval History: Call received from nurse this morning regarding patient's heart rate. Nurse reports this morning patient has occasional episodes of tachycardia into the 150s, but will decrease into the high 90s and low 100s. I assessed patient who is noted to have heart rate of 108 on tele. He denies chest pain/pressure, shortness of breath, palpitations, lightheadedness. He reports he feels improved from yesterday. EKG ordered. Patient to continue on tele. In addition nurses report that patient vomited x1 last evening. I reviewed Dr Joseph's notes and chest and abd xray. On assessment of patient he denies nausea and abd pain. He reports he is passing flatus and passed a small stool. He reports his feels as if his trach gets clogged and this leads to vomiting. Patient had 2 episodes of emesis while this chief underwriter was on the unit. Both were very small and looked like watery NG tube feed. Patient reports his breathing is improved from yesterday and feels he is improving. Continues to have sore throat. It should also be noted that I was alerted of VT overnight this afternoon. See progress note. Echo and cardiology consult ordered. Family History: Unchanged from Admission Social History: Unchanged from Admission Past Medical History: Unchanged from Admission Objective Active Medications: Acetaminophen (Tylenol Adult Liq*) 650 mg PEG TUBE Q4H PRN PRN Reason: PAIN Last Admin: 03/14/18 08:00 Dose: 650 mg Al Hydrox/Mg Hydrox/Simethicone (Maalox Plus*) 30 ml NG TUBE Q6H PRN PRN Reason: DYSPEPSIA Aspirin (Aspirin 81 Mg Chew Tab*) 81 mg NG TUBE DAILY [facility] Last Admin: 03/15/18 08:59 Dose: Not Given Atorvastatin Calcium (Lipitor*) 40 mg NG TUBE 1700 [facility] Last Admin: 03/14/18 16:42 Dose: 40 mg Dextrose (D50w Syringe 50 Ml*) 12.5 gm IV PUSH .FOR FS < 60 - SS PRN PRN Reason: FS < 60 Hydralazine HCl (Apresoline Iv*) 10 mg IV SLOW PU Q6H PRN PRN Reason: SBP>165, HOLD FOR HR<60 Last Admin: 03/15/18 07:49 Dose: 10 mg Metronidazole/Sodium Chloride (Flagyl 500 Mg Ivpb*) 500 mg in 100 mls @ 100 mls /hr IVPB 0730,1530,2330 [facility] Last Admin: 03/15/18 08:08 Dose: 100 mls/hr Sodium Chloride (Ns 0.9% 1000 Ml) 1,000 mls @ 75 mls/hr IV PER RATE [facility] Insulin Glargine (Lantus(*)) 5 units SUBCUT Q24H [facility] Last Admin: 03/14/18 16:00 Dose: 5 units Insulin Human Lispro (Humalog*) 0 units SUBCUT Q6HR [facility]; Protocol Last Admin: 03/15/18 05:41 Dose: Not Given Lisinopril (Prinivil Tab*) 10 mg PO DAILY [facility] Last Admin: 03/15/18 08:59 Dose: Not Given Metoprolol Tartrate (Lopressor Iv*) 5 mg IV Q6H [facility] Last Admin: 03/15/18 09:28 Dose: 5 mg Ondansetron HCl (Zofran Inj*) 4 mg IV Q6H PRN PRN Reason: NAUSEA/VOMITING Last Admin: 03/15/18 08:02 Dose: 4 mg Oxycodone HCl (Roxycodone Tab*) 5 mg .SEE ORDER Q4H PRN PRN Reason: PAIN - MODERATE Last Admin: 03/11/18 16:12 Dose: 5 mg Oxycodone HCl (Roxycodone Tab*) 10 mg .SEE ORDER Q4H PRN PRN Reason: PAIN - SEVERE Last Admin: 03/14/18 15:58 Dose: 10 mg Pantoprazole Sodium (Protonix Iv*) 40 mg IV DAILY [facility] Vital Signs - 8 hr 03/15/18 03/15/18 03/15/18 03:42 07:34 07:40 Temperature 98.0 F 98.2 F 98.1 F Pulse Rate 85 152 148 Respiratory 20 20 18 Rate Blood Pressure 159/66 151/97 164/104 (mmHg) O2 Sat by Pulse 100 100 98 Oximetry 03/15/18 08:00 Temperature Pulse Rate Respiratory Rate Blood Pressure 142/73 (mmHg) O2 Sat by Pulse Oximetry Oxygen Devices in Use Now: Tracheostomy Collar Appearance: Comfortable, NAD Eyes: No Scleral Icterus Ears/Nose/Mouth/Throat: Mucous Membranes Moist Neck: NL Appearance and Movements; NL JVP Respiratory: Symmetrical Chest Expansion and Respiratory Effort, Clear to Auscultation Cardiovascular: NL Sounds; No Murmurs; No JVD, No Edema, - - Irregular Rate (hx of afib) Abdominal: NL Sounds; No Tenderness; No Distention, - Lymphatic: No Cervical Adenopathy Extremities: No Edema Neurological: Alert and Oriented x 3 - Nutrition: Malnutrition Diagnosis/Plan Malnutrition Assessment by Registered Dietitian: Malnutrition Assessment Clinical Characteristics Acute,Moderate Malnutrition Assessment: - 6.1% wt loss in past one month Criteria - mild temporal muscle wasting - intake likely <75% EEE x 7 days Malnutrition Assessment: 1. follow ANIMAL CARE ASSISTANT re-evaluation of swallowing Interventions function; NPO at this time 2. follow for potential need for PEG placement 3. offer and begin po supplements when pt ready for some level of po intake Malnutrition Assessment: Goals 1. when safe for po intake, pt will tolerate least-restrictive diet texture without evidence of swallowing difficulty or aspiration 2. adequate po intake to maintain present wt and hydration status 3. achieve and maintain serum electrolytes within normal ranges 4. achieve and maintain regulation of bowel pattern; no constipation (or diarrhea) Result Diagrams: 03/15/18 16:46 03/15/18 16:46 Additional Lab and Data: Laboratory Results - last 24 hr 03/14/18 03/14/18 03/14/18 06:47 10:44 11:38 WBC RBC Hgb Hct MCV MCH MCHC RDW Plt Count MPV Neut % (Auto) Lymph % (Auto) [place] % (Auto) Eos % (Auto) Baso % (Auto) Absolute Neuts (auto) Absolute Lymphs (auto) Absolute Monos (auto) Absolute Eos (auto) Absolute Basos (auto) Absolute Nucleated RBC Nucleated RBC % Sodium Potassium Chloride Carbon Dioxide Anion Gap BUN Creatinine Est GFR ( Amer) Est GFR (Non-Af Amer) BUN/Creatinine Ratio Glucose POC Glucose (mg/dL) 441 H* Glucose Meter Confirm 160 H Calcium Magnesium 2.1 03/14/18 03/14/18 03/15/18 17:44 23:55 05:40 WBC RBC Hgb Hct MCV MCH MCHC RDW Plt Count MPV Neut % (Auto) Lymph % (Auto) [place] % (Auto) Eos % (Auto) Baso % (Auto) Absolute Neuts (auto) Absolute Lymphs (auto) Absolute Monos (auto) Absolute Eos (auto) Absolute Basos (auto) Absolute Nucleated RBC Nucleated RBC % Sodium Potassium Chloride Carbon Dioxide Anion Gap BUN Creatinine Est GFR ( Amer) Est GFR (Non-Af Amer) BUN/Creatinine Ratio Glucose POC Glucose (mg/dL) 160 H 143 H 131 H Glucose Meter Confirm Calcium Magnesium 03/15/18 03/15/18 06:34 06:34 WBC 13.2 H RBC 3.86 L Hgb 10.9 L Hct 33 L MCV 85 MCH 28 MCHC 33 RDW 16 H Plt Count 296 MPV 7.9 Neut % (Auto) 89.4 Lymph % (Auto) 4.4 [place] % (Auto) 4.5 Eos % (Auto) 0.7 Baso % (Auto) 1.0 Absolute Neuts (auto) 11.8 H Absolute Lymphs (auto) 0.6 L Absolute Monos (auto) 0.6 Absolute Eos (auto) 0.1 Absolute Basos (auto) 0.1 Absolute Nucleated RBC 0 Nucleated RBC % 0.1 Sodium 142 Potassium 4.3 Chloride 112 H Carbon Dioxide 24 Anion Gap 6 BUN 22 Creatinine 1.21 H Est GFR ( Amer) 68.3 Est GFR (Non-Af Amer) 56.5 BUN/Creatinine Ratio 18.2 Glucose 102 H POC Glucose (mg/dL) Glucose Meter Confirm Calcium 8.7 Magnesium 2.1 Microbiology and Other Data: Microbiology 03/01/18 14:50 Nasal Screen MRSA (PCR) - Final Nasal Mrsa Not Detected Assess/Plan/Problems-Billing Assessment: Mr. 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 - Patient Problems (1) Ventricular tachycardia Comment: - Patient had 53 beat run of VT overnight - Cardiology consulted and I appreciate their assistance. Recommend as follows: transfer to ICU, Amio drip, monitor and repalce lytes as needed, Heparin Drip for Afib - Echo revealed EF of 35% to 40% - Monitor LFTs, Chest Xray, TSH, Thyroid Panel after initiation of amio (2) Vomiting Comment: - Discussed with Dr Clark and plan as follows: Start Protonix IV, provided Maalox via NG tube now, restart tube feed at 40 ml/hr at noon if patient remains asymptomatic, keep patient's HOB at least 30 degree elevation or greater. (3) Atrial fibrillation Comment: - I suspected patient's increase in rate is multifactorial. He is vomiting and could be dry, therefore, I have ordered NS 75 ml/hr. In addition he vomitted after receiving Metoprolol via NG tube, therefore, possible absorption issues. I have ordered IV Metoprolol and discontinue NG tube metoprolol for now. - Continue aspirin - Cont tele - Cont to monitor and replace lytes as needed, which are currently wnl. (4) Laryngeal cancer Comment: - Recurrent, s/p resection of ca 09/01/16; s/p tracheostomy 03/01/18; s/p total laryngectomy 03/07/[address] Stubbs - Management per ENT - Dr. Stubbs, would prefer to not have PEG placed; plan to continue nasoenteral feeds and attempt PO feeds within upcoming 2 weeks under guidance and direction of ENT - TF diet only (5) Malnutrition Comment: - Acute, moderate; see assessment by Prom Burn Off Operator - Continue tube feedings based on Prom Burn Off Operator recommendations - May need TPN after PICC can be placed tomorrow (6) Tracheostomy in place Comment: - On 03/01/18 - Trach care as needed (7) CAD (coronary artery disease) Comment: - Stable - Continue aspirin, metoprolol, atorvastatin (8) Diabetes mellitus Comment: - FS in 200s - Finger sticks changed to Q6hr as TF will now be 24 hrs - Cont glargine 5 units - SS (low dose) (9) HTN (hypertension) Comment: - Hypertensive, SBP 140-150s - Continue lisinopril, metoprolol, hydralazine PRN (10) DVT prophylaxis Comment: - Heparin Drip - SCDs (11) Full code status Comment: Status and Disposition: Disposition planning pending definitive feeding plan and recommendations from Dr. Stubbs. Tentative plan for swing status with NG feedings until able to transition to PO. Attending: Meek Hawthorne
[2018-03-15] MEDS: Pantoprazole IV* 40 MG IV SCH (10:13)
[2018-03-15 10:38] LABS: Albumin 2.7 g/dL (3.2-5.2)
[2018-03-15] MEDS ORDERED: Magnesium Sulfate 2 GM IV* 2 GM/50 ML BAG IVPB ONE (11:10)
--- NOTE | 2018-03-15 11:14 | PN ---
Hospitalist Progress Note Date of Service: 03/15/18 While rounding on 4S I was notified that patient had a 53 beat of Vtach last evening by rn tele. Patient was asymptomatic per documentation and provider was notified per documentation. Patient additional had a run of 9 and run of 10 beats of Vtach. Mag 2.1, but additional 2 gm ordered. Potassium wnl. Echo ordered. Staff Development Manager consulted and will see patient this afternoon.
[2018-03-15 12:06] LABS: Troponin I 0.04 ng/mL (<0.04)
--- NOTE | 2018-03-15 13:20 | ECHO ---
Patient: NAVI MENJIVAR [facility] Rec#: [id number] : 1930 Date: 03/15/2018 Age: 87y Height: 167.64 cm / 66.0 in Weight: 71.67 kg / 158.0 lbs Sex: M BSA: 1.81 Room#: 336 Admit Date#: 03/01/2018 Type: Inpatient Referring: Pao Mazariegos Reading: Philip Chaudhari MD Telegraph Messenger: Diandra Sibley RDCS CC: Nam Cabrera MD Transthoracic Echocardiogram Indication: Abnormal EKG BP: 142/73 HR: 121 Rhythm: A-Fib Findings History: CAD, s/p CABG and PCI, a-fib, DM, HTN, larynageal cancer s/p tracheostomy. Unable to obtain suprasternal notch imaging due to recent surgery. Technical Comments: The study quality is fair. Completed at 1220. Left Ventricle: The left ventricular chamber size is normal. Mild concentric left ventricular hypertrophy is observed. There is a focal wall motion abnormality present. There is moderately decreased left ventricular systolic function. Unable to estimate left ventricular ejection fraction. Resting rapid a fib. Overall EF is probably moderately reduced with anterior/apical and septal wall hypokinesis. Post surgical hypokinesis of the interventricular septum is observed consistent with coronary artery bypass. The assessment of diastolic function is non-diagnostic. Left Atrium: The left atrium is moderately dilated. Right Ventricle: Moderator Band present. The right ventricle is moderately dilated. The right ventricular global systolic function is mildly to moderately reduced. Right Atrium: The right atrium is moderately dilated. Aortic Valve: The aortic valve is trileaflet. The aortic valve leaflets are mildly thickened. There is trace to mild aortic regurgitation. There is no evidence of aortic stenosis. Mitral Valve: There is mitral annular calcification. The mitral valve leaflets are mildly thickened. There is mild to moderate mitral regurgitation. Milder side. There is no evidence of mitral stenosis. Tricuspid Valve: The tricuspid valve leaflets are normal. There is mild to moderate tricuspid regurgitation. The right ventricular systolic pressure is estimated at 52 mmHg. There is evidence of moderate pulmonary hypertension. There is no tricuspid stenosis. Pulmonic Valve: The pulmonic valve appears normal. There is a trace pulmonic regurgitation. There is no pulmonic stenosis. Pericardium: There is no significant pericardial effusion. A pericardial fat pad is visualized. Aorta: There is no dilatation of the ascending aorta. The aortic root is normal in size. Pulmonary Artery: The main pulmonary artery appears normal. Venous: The inferior vena cava appears normal in size. There is a greater than 50% respiratory change in the inferior vena cava dimension. Summary: There are changes noted when compared to the previous study done on 05/04/2016, LV EF is much less now from 55-60% then. Conclusions The left ventricular chamber size is normal. Mild concentric left ventricular hypertrophy is observed. Unable to estimate left ventricular ejection fraction. Resting rapid a fib. Overall EF is probably moderately reduced with anterior/apical and septal wall hypokinesis. Post surgical hypokinesis of the interventricular septum is observed consistent with coronary artery bypass. The assessment of diastolic function is non-diagnostic. The left atrium is moderately dilated. The right atrium is moderately dilated. There is trace to mild aortic regurgitation. There is mild to moderate mitral regurgitation. Milder side. There is mild to moderate tricuspid regurgitation. The right ventricular systolic pressure is estimated at 52 mmHg. There is evidence of moderate pulmonary hypertension. There are changes noted when compared to the previous study done on 05/04/2016, LV EF is much less now from 55-60% then. Measurements Name Value Normal Range RVIDd (AP) 2D 3.5 cm (0.9 - 2.6) RVDdMajor (2D) 5.1 cm (2.2 - 4.4) RAd ISD 4CH 5.3 cm (3.4 - 4.9) RA (A4C)W 4.5 cm (2.9 - 4.6) IVSd (2D) 1.2 cm (0.6 - 1) LVPWd (2D) 1.1 cm (0.6 - 1) LVIDd (2D) 4.5 cm (3.6 - 5.4) LVIDs (2D) 3.1 cm - LV FS (2D) 32 % (25 - 45) Aortic Annulus 2 cm (1.4 - 2.6) Ao root diameter (2D) 3.5 cm (2.1 - 3.5) Ascending Ao 3.3 cm (2.1 - 3.4) LA dimension (AP) 2D 4.8 cm (2.3 - 3.8) LAd ISD 4CH 5.7 cm (2.9 - 5.3) LA ISD 4CH W 4.6 cm (2.5 - 4.5) Name Value Normal Range LA ESV SP 4CH (A/L) 79 ml - LA ESV SP 2CH (A/L) 72 ml - LA ESV BP (A/L) 76 ml - LA ESV BP (A/L) index 42 ml/m2 - LA ESV SP 4CH (MOD) 72 ml - LA ESV SP 2CH (MOD) 69 ml - Name Value Normal Range MV E-wave Vmax 1.15 m/sec - MV deceleration time 132.4 msec - LV septal e' Vmax 0.04 m/sec - LV lateral e' Vmax 0.05 m/sec - LV E:e' septal ratio 28.8 ratio - LV E:e' lateral ratio 23 ratio - Name Value Normal Range AV Vmax 1.24 m/sec - AV VTI 21.5 cm - AV peak gradient 6.29 mmHg - AV mean gradient 2.88 mmHg - LVOT Vmax 0.88 m/sec - LVOT VTI 14.35 cm - LVOT peak gradient 3.15 mmHg - LVOT mean gradient 1.46 mmHg - Name Value Normal Range MR Vmax 4.7 m/sec - MR VTI 138.5 cm - MR flow (PISA) 25.1 ml/sec - MR ERO 0.05 cm2 - MR PISA radius 0.3 cm - MR alias Vmax 37.1 cm/sec - Name Value Normal Range TR Vmax 3.5 m/sec - TR peak gradient 49 mmHg - RAP 3 mmHg - RVSP 52 mmHg - IVC diameter 1.9 cm - Name Value Normal Range PV Vmax 1.1 m/sec - PV peak gradient 5.17 mmHg -
[2018-03-15] MEDS: Insulin GLARGINE(*) 1 UNITS UNIT SUBCUT SCH (15:18)
[2018-03-15] MEDS ORDERED: Metoprolol Tartrate IV* 1 MG/ML 5 ML VIAL IV PRN (16:21)
[2018-03-15] MEDS ORDERED: Amiodarone 360 MG IVPREMIX* 360 MG/200 ML BAG IV ONE ×2 (16:30→22:49)
[2018-03-15] MEDS ORDERED: Heparin DRIP 25,000 UNITS(*) 25,000 UNITS/500 ML BAG IV SCH (16:30)
[2018-03-15] MEDS: Heparin VIAL(*) 5000 UNITS/ML VIAL (FIVE THOUSAND) IV SCH (16:55)
[2018-03-15 17:16] LABS: ABS Basophils 0.1 10^3/ul (0-0.2); ABS Eosinophils 0 10^3/ul (0-0.6); ABS Lymphocytes 0.4 10^3/ul (1.0-4.8); ABS Monocytes 0.7 10^3/ul (0-0.8); ABS Neutrophils 10.2 10^3/ul (1.5-7.7); ABS Nucleated RBC 0 10^3/ul; Eosinophil % 0.3 %; Hematocrit 31 % (42-52); Hemoglobin 10.3 g/dl (14.0-18.0); Lymphocyte % 3.8 %; Mean Corpuscular HGB Conc 33 g/dl (31-36); Mean Corpuscular Hemoglobin 29 pg (27-31); Mean Corpuscular Volume 86 fL (80-94); Mean Platelet Volume 7.9 fL (7.4-10.4); Nucleated Red Blood Cells % 0; Platelet Count 322 10^3/ul (150-450); Red Blood Count 3.61 10^6/ul (4.00-5.40); Red Cell Distribution Width 17 % (10.5-15); White Blood Count 11.5 10^3/ul (3.5-10.8)
[2018-03-15 17:26] LABS: EGFR African American 59.2 (>60); EGFR Non-African American 48.9 (>60)
--- NOTE | 2018-03-15 18:30 | CONS ---
CC: Dr. Lebron; Dr. Chaudhari; hospitalist service; Dr. Stubbs * CARDIOLOGY CONSULT: DATE OF CONSULT: 03/15/18 HISTORY OF PRESENT ILLNESS: I was asked by hospitalist service to see this 87- year- old male patient, who was hospitalized on 03/01/18 for tracheostomy and laryngoscopy as per Dr. Stubbs, which was done in a patient who does have known history of laryngeal cancer. He was seen by nurse practitioner, Isadora Abreu, at our office on 02/23/18 for preop clearance and the patient was cleared to proceed for his surgery. The patient does have extensive cardiac history including known history of coronary artery disease; old myocardial infarction; coronary artery bypass grafting x2 on 05/03/11 with CARR to the LAD , saphenous vein graft to the right PDA; history of ischemic cardiomyopathy, EF in the past reported 25% to 30%, however, echo from Dr. Lebron's office on 05/04 showed EF 55% to 60% with mild- to-moderate mitral insufficiency. The patient does have significant comorbidities including systemic arterial hypertension, history of heart failure, history of peripheral vascular disease, history of hyperlipidemia, and history of angioplasty in the past. He also does have type 2 diabetes. He has chronic atrial fibrillation, declined anticoagulation as per discussion in April 2017; history of renal insufficiency ; history of throat and skin cancer. I was called from cardiac standpoint. The patient was noted to have multiple recurrent episodes of nonsustained V-tach , but one of the episodes was 50 beats run of wide complex tachycardia, probably morphology stephenson cannot rule out ventricular tachycardia. I was told the patient was awake without any specific symptoms. I was told the oxygenation was adequate. Further evaluation of his electrolytes today showed his potassium to be within normal limits at 4.3, magnesium 2.1. Troponin 0.04. The patient never had symptoms of chest pain. The tracheostomy is in place. An EKG done on 03/15/18 today at 8:40 in the morning showed the patient to be in atrial fibrillation, heart rate about 117, multiple PVCs appreciated and poor R-wave progression and possible Q waves in leads III, aVF and Q waves in V1 , V2 and also in V3, poor R-wave progression in V4 consistent with old anteroseptal wall ME. Of note, his echo today showed anteroseptal apical wall hypokinesis. There is no fever, no chills, no hematochezia. There is some shortness of breath. There is some vomiting. No syncope. No chest pain. No skin rash. No tremors. No swelling in the lower extremities. No overt signs of congestive heart failure appreciated. The patient is difficult to talk. NG tube in place, tracheostomy in place. Most of the history obtained from the hospitalist service discussion as well as from Dr. Lebron's full detailed note from the office. PAST MEDICAL HISTORY: Extensive including all the above-mentioned history, old myocardial infarction, systemic arterial hypertension, hyperlipidemia, coronary artery disease, CABG, peripheral vascular disease, angioplasty in the past, diabetes mellitus type 2, and laryngeal cancer. PAST SURGICAL HISTORY: History of CABG in April 2011; history of cardiac cath, 2010; throat surgery, 2015; repeat surgery for neoplasm of the larynx, 2017. MEDICATIONS: His medications as an outpatient include: 1. Lipitor half of 20 mg at night. 2. B12 once daily. 3. Terazosin 2 mg 2 every day. 4. Isosorbide 30 mg daily. 5. Amlodipine 10 mg daily. 6. Baby aspirin 81 mg daily. His medications as an inpatient include: 1. Tylenol 650 mg daily p.r.n. q.4 hours. 2. Maalox 30 mL NG tube q.6 hours. 3. Amiodarone just started IV drip. 4. Baby aspirin 81 mg daily. 5. Lipitor 40 mg daily. 6. Hydralazine 10 mg IV q.6 hours p.r.n. for systolic blood pressure more than 165. 7. Insulin adjusted to blood sugar. 8. Lisinopril 10 mg daily. 9. Metoprolol 5 mg IV q.6 hours. 10. Pantoprazole IV 40 mg daily. ALLERGIES: No known drug allergies. FAMILY HISTORY: No family history of premature CAD. SOCIAL HISTORY: He is , lives with , retired. He is a former smoker. He quit 30 years ago. He does drink beer. No history of illicit drug use. REVIEW OF SYSTEMS: Review of all other systems essentially is negative. PHYSICAL EXAM: He is awake, alert, and oriented. He does not seem to be in acute distress. Vitals: Blood pressure 142/82; pulse 91, irregularly irregular ; respiratory rate 20; and temperature 98.2 as of this morning 7:40 a.m. Head and Neck Exam: Tracheostomy in place. Eyes: No evidence of jaundice. Neck is supple. JVP was not well seen. Chest: Diminished air entry at the bases, but no significant rhonchi, no wheeze. Heart: Irregularly irregular. S1, S2. There is a grade 2/6 systolic murmur in the apex. No S3 is appreciated. Abdomen: Benign. No guarding. No rigidity. No organomegaly. Positive bowel sounds. Extremities: No edema, no cyanosis, no clubbing. TECHNOLOGY DIRECTOR: No focal deficits appreciated. Skin exam is normal. Psych is difficult to evaluate at the present time. DIAGNOSTIC STUDIES/LAB DATA: His labs showed the following: His sodium 142, chloride 112, potassium 4.3, total CO2 24, BUN 22, creatinine 1.2, magnesium 2.1. Troponin 0.04, then 0.03. Albumin 2.7. INR 1.1. White blood cell 13.2, hemoglobin 10.9, hematocrit 33, and platelets are 296. IMPRESSION: The patient is an 87-year-old male with: 1. Status post tracheostomy and laryngoscopy in a patient who does have known history of laryngeal cancer. 2. Ischemic cardiomyopathy with an echo today EF 35% to 40%, although was difficult to evaluate, but at least the left ventricular function is moderately reduced with wall motion abnormality, hypokinesis of the anteroseptal-apical regions. 3. Known history of coronary artery disease, status post CABG x2 as outlined above. 4. Systemic arterial hypertension. 5. Hyperlipidemia. 6. Peripheral vascular disease. 7. Chronic atrial fibrillation. The patient declined anticoagulation in the past as per previous discussions. 8. Ylkv-ml-oewveyka mitral insufficiency. 9. Sgdc-iy-udkirgor tricuspid insufficiency with moderate pulmonary hypertension. 10. Wide complex tachycardia, recurrent, while he is monitored, concerning for ventricular tachycardia. 11. Abnormal EKG as described with multiple PVCs and his old anteroseptal wall myocardial infarction. PLAN: Cardiology consulted for his presumed V-tach, which is recurrent. His magnesium and his potassium levels are within normal limits. It is highly likely this represents ventricular arrhythmia given his known history of coronary artery disease and in light of his ischemic cardiomyopathy. At the present time, further discussion with the patient for management, he is agreeable to proceed for medical management. Given his known history of CAD, ischemic cardiomyopathy, atrial fibrillation and presumed V-tach, I think amiodarone is a good choice in this particular patient. He is willing to do so. Given there are some issues with the NG tube and reported vomiting, I think loading with IV amiodarone will be more feasible as per protocol and this will be started. We will follow his LFTs and chest x-ray and TSH, thyroid profile after initiating amiodarone. It is important to keep his potassium 4 or more as you are already doing, magnesium 2 or more as you are already doing. Anticoagulation at least while he is hospitalized is in further discussion and to be discussed with Dr. Stubbs if that is something that we can do after his laryngoscopy and his tracheostomy. I would recommend continuing the rest of his medications as you are already doing and keep a close eye on his electrolytes and renal function and as well avoid any significant dehydration after his surgery. I answered all concerns and questions up to their satisfaction and we will follow closely. We will make further recommendations accordingly. TIME SPENT: More than half of at least 60 to 65 plus minutes was in the education and counseling mode, explaining the above and making further recommendations. I discussed this with the hospitalist service as well. Thank you very much for asking us to participate in the care of this patient. [id number]/[facility] #: [id number] VALENTINE
[2018-03-15] MEDS: oxyCODONE TAB* 5 MG TAB PRN (20:51)
[2018-03-15] MEDS: Atorvastatin* 40 MG TAB NG TUBE SCH (20:51)
[2018-03-15] MEDS: Amiodarone 360 MG IVPREMIX* 360 MG/200 ML BAG IV SCH (23:00)
[2018-03-16] MEDS: metroNIDAZOLE IV 500 MG/100ML* 500 MG/100 ML BAG IVPB SCH ×4 (00:10→23:27)
[2018-03-16] MEDS: Insulin LISPRO* 1 UNITS UNIT SUBCUT SCH ×5 (00:45→23:56)
[2018-03-16 05:49] LABS: ABS Basophils 0.1 10^3/ul (0-0.2); ABS Eosinophils 0.1 10^3/ul (0-0.6); ABS Lymphocytes 0.6 10^3/ul (1.0-4.8); ABS Neutrophils 10.7 10^3/ul (1.5-7.7); ABS Nucleated RBC 0 10^3/ul; Eosinophil % 1.2 %; Hematocrit 31 % (42-52); Hemoglobin 10.1 g/dl (14.0-18.0); Lymphocyte % 4.5 %; Mean Corpuscular HGB Conc 32 g/dl (31-36); Mean Corpuscular Hemoglobin 28 pg (27-31); Mean Corpuscular Volume 87 fL (80-94); Mean Platelet Volume 7.7 fL (7.4-10.4); Nucleated Red Blood Cells % 0; Platelet Count 313 10^3/ul (150-450); Red Blood Count 3.63 10^6/ul (4.00-5.40); Red Cell Distribution Width 17 % (10.5-15); White Blood Count 12.6 10^3/ul (3.5-10.8)
[2018-03-16 06:10] LABS: EGFR African American 55.4 (>60); EGFR Non-African American 45.8 (>60)
[2018-03-16] MEDS: Heparin VIAL(*) 5000 UNITS/ML VIAL (FIVE THOUSAND) IV SCH (06:33)
[2018-03-16] MEDS: Lisinopril TAB* 10 MG PO SCH (08:45)
[2018-03-16] MEDS: Pantoprazole IV* 40 MG IV SCH (08:45)
[2018-03-16] MEDS: Aspirin 81 mg CHEW TAB* 81 MG TAB.CHEW NG TUBE SCH ×2 (08:45→09:26)
[2018-03-16 09:14] LABS: Calcium 8.2 mg/dL (8.6-10.3); Potassium 4.2 mmol/L (3.5-5.0)
[2018-03-16] MEDS ORDERED: Clopidogrel TAB* 300 MG ONE (09:19)
[2018-03-16 09:32] LABS: Free T3 2.2 pg/mL (2.5-3.9)
[2018-03-16 09:33] LABS: Free T4 1.36 ng/dL (0.61-1.12)
[2018-03-16] MEDS: Metoprolol Tartrate IV* 1 MG/ML 5 ML VIAL IV SCH ×2 (09:52→15:14)
[2018-03-16] MEDS ORDERED: Aspirin SUPP* 300 MG PR SCH (10:00)
[2018-03-16 10:32] LABS: BUN/Creatinine Ratio 19.3 (8-20)
[2018-03-16] MEDS: Amiodarone 360 MG IVPREMIX* 360 MG/200 ML BAG IV SCH (10:59)
--- NOTE | 2018-03-16 11:17 | PN ---
Subjective Date of Service: 03/16/18 Interval History: P's feels "so, so " with his breathing, but denies acute SOB or CP. Communication limited to pt mouthing words due to trach in place Family History: Unchanged from Admission Social History: Unchanged from Admission Past Medical History: Unchanged from Admission Objective Active Medications: Acetaminophen (Tylenol Adult Liq*) 650 mg PEG TUBE Q4H PRN PRN Reason: PAIN Last Admin: 03/14/18 08:00 Dose: 650 mg Al Hydrox/Mg Hydrox/Simethicone (Maalox Plus*) 30 ml NG TUBE Q6H PRN PRN Reason: DYSPEPSIA Last Admin: 03/15/18 10:16 Dose: 30 ml Aspirin (Asa Supp*) 300 mg CO DAILY [facility] Last Admin: 03/16/18 09:52 Dose: 300 mg Atorvastatin Calcium (Lipitor*) 40 mg NG TUBE BEDTIME DEBRA Clopidogrel Bisulfate (Plavix Tab*) 75 mg .SEE ORDER DAILY [facility] Dextrose (D50w Syringe 50 Ml*) 12.5 gm IV PUSH .FOR FS < 60 - SS PRN PRN Reason: FS < 60 Heparin Sodium (Porcine) (Heparin Vial(*)) 0 units IV .PER PROTOCOL [facility] Last Admin: 03/16/18 06:33 Dose: 2,250 units Hydralazine HCl (Apresoline Iv*) 10 mg IV SLOW PU Q6H PRN PRN Reason: SBP>165, HOLD FOR HR<60 Last Admin: 03/15/18 07:49 Dose: 10 mg Metronidazole/Sodium Chloride (Flagyl 500 Mg Ivpb*) 500 mg in 100 mls @ 100 mls /hr IVPB 0730,1530,2330 [facility] Last Admin: 03/16/18 08:45 Dose: 100 mls/hr Amiodarone HCl (Nexterone 360 Mg/200 Ml Ivpremix*) 360 mg in 200 mls @ 16.667 mls/hr IV .SEE PROTOCOL [facility]; Protocol Stop: 03/16/18 17:30 Last Admin: 03/16/18 10:59 Dose: 16.667 mls/hr Dextrose/Lactated Ringer's (D5lr 1000 Ml Bag*) 1,000 mls @ 75 mls/hr IV PER RATE [facility] Insulin Glargine (Lantus(*)) 5 units SUBCUT Q24H [facility] Last Admin: 03/15/18 15:18 Dose: 5 units Insulin Human Lispro (Humalog*) 0 units SUBCUT Q6HR [facility]; Protocol Last Admin: 03/16/18 06:43 Dose: 1 unit Lisinopril (Prinivil Tab*) 10 mg PO DAILY [facility] Last Admin: 03/16/18 08:45 Dose: 10 mg Metoprolol Tartrate (Lopressor Iv*) 5 mg IV Q6H [facility] Stop: 03/16/18 16:01 Last Admin: 03/16/18 09:52 Dose: 5 mg Morphine Sulfate (Morphine Vial*) 1 mg IV Q2H PRN PRN Reason: PAIN Ondansetron HCl (Zofran Inj*) 4 mg IV Q6H PRN PRN Reason: NAUSEA/VOMITING Last Admin: 03/15/18 08:02 Dose: 4 mg Pantoprazole Sodium (Protonix Iv*) 40 mg IV DAILY [facility] Last Admin: 03/16/18 08:45 Dose: 40 mg Vital Signs - 8 hr 03/16/18 03/16/18 03/16/18 04:00 04:01 05:00 Temperature 98.1 F Pulse Rate 71 90 Respiratory 26 14 23 Rate Blood Pressure 132/73 151/72 (mmHg) O2 Sat by Pulse 97 96 Oximetry 03/16/18 03/16/18 03/16/18 06:00 06:01 07:45 Temperature Pulse Rate 81 Respiratory 18 15 Rate Blood Pressure 134/61 (mmHg) O2 Sat by Pulse 97 96 Oximetry Oxygen Devices in Use Now: Tracheostomy Collar Appearance: 87 yo M in nAD, AAOx3 Eyes: No Scleral Icterus, PERRLA Ears/Nose/Mouth/Throat: NL Teeth, Lips, Gums, Mucous Membranes Moist, - - tracheostomy in place Neck: NL Appearance and Movements; NL JVP, Trachea Midline Respiratory: Symmetrical Chest Expansion and Respiratory Effort Cardiovascular: - - irregular Abdominal: NL Sounds; No Tenderness; No Distention, No Hepatosplenomegaly Lymphatic: No Cervical Adenopathy Extremities: No Edema, No Clubbing, Cyanosis Skin: No Rash or Ulcers, No Nodules or Sclerosis Neurological: Alert and Oriented x 3, NL Muscle Strength and Tone - Nutrition: Malnutrition Diagnosis/Plan Malnutrition Assessment by Registered Dietitian: Malnutrition Assessment Clinical Characteristics Acute,Moderate Malnutrition Assessment: - 6.1% wt loss in past one month Criteria - mild temporal muscle wasting - intake likely <75% EEE x 7 days Malnutrition Assessment: 1. follow TELEVISION PROGRAM DIRECTOR re-evaluation of swallowing Interventions function; NPO at this time 2. follow for potential need for PEG placement 3. offer and begin po supplements when pt ready for some level of po intake Malnutrition Assessment: Goals 1. when safe for po intake, pt will tolerate least-restrictive diet texture without evidence of swallowing difficulty or aspiration 2. adequate po intake to maintain present wt and hydration status 3. achieve and maintain serum electrolytes within normal ranges 4. achieve and maintain regulation of bowel pattern; no constipation (or diarrhea) Result Diagrams: 03/16/18 05:25 03/16/18 05:25 Additional Lab and Data: Laboratory Results - last 24 hr 03/14/18 03/14/18 03/14/18 06:47 10:44 11:38 WBC RBC Hgb Hct MCV MCH MCHC RDW Plt Count MPV Neut % (Auto) Lymph % (Auto) Gregg % (Auto) Eos % (Auto) Baso % (Auto) Absolute Neuts (auto) Absolute Lymphs (auto) Absolute Monos (auto) Absolute Eos (auto) Absolute Basos (auto) Absolute Nucleated RBC Nucleated RBC % Sodium Potassium Chloride Carbon Dioxide Anion Gap BUN Creatinine Est GFR ( Amer) Est GFR (Non-Af Amer) BUN/Creatinine Ratio Glucose POC Glucose (mg/dL) 441 H* Glucose Meter Confirm 160 H Calcium Magnesium 2.1 03/14/18 03/14/18 03/15/18 17:44 23:55 05:40 WBC RBC Hgb Hct MCV MCH MCHC RDW Plt Count MPV Neut % (Auto) Lymph % (Auto) Gregg % (Auto) Eos % (Auto) Baso % (Auto) Absolute Neuts (auto) Absolute Lymphs (auto) Absolute Monos (auto) Absolute Eos (auto) Absolute Basos (auto) Absolute Nucleated RBC Nucleated RBC % Sodium Potassium Chloride Carbon Dioxide Anion Gap BUN Creatinine Est GFR ( Amer) Est GFR (Non-Af Amer) BUN/Creatinine Ratio Glucose POC Glucose (mg/dL) 160 H 143 H 131 H Glucose Meter Confirm Calcium Magnesium 03/15/18 03/15/18 06:34 06:34 WBC 13.2 H RBC 3.86 L Hgb 10.9 L Hct 33 L MCV 85 MCH 28 MCHC 33 RDW 16 H Plt Count 296 MPV 7.9 Neut % (Auto) 89.4 Lymph % (Auto) 4.4 Gregg % (Auto) 4.5 Eos % (Auto) 0.7 Baso % (Auto) 1.0 Absolute Neuts (auto) 11.8 H Absolute Lymphs (auto) 0.6 L Absolute Monos (auto) 0.6 Absolute Eos (auto) 0.1 Absolute Basos (auto) 0.1 Absolute Nucleated RBC 0 Nucleated RBC % 0.1 Sodium 142 Potassium 4.3 Chloride 112 H Carbon Dioxide 24 Anion Gap 6 BUN 22 Creatinine 1.21 H Est GFR ( Amer) 68.3 Est GFR (Non-Af Amer) 56.5 BUN/Creatinine Ratio 18.2 Glucose 102 H POC Glucose (mg/dL) Glucose Meter Confirm Calcium 8.7 Magnesium 2.1 Microbiology and Other Data: Microbiology 03/01/18 14:50 Nasal Screen MRSA (PCR) - Final Nasal Mrsa Not Detected Assess/Plan/Problems-Billing Assessment: Mr. 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 - Patient Problems (1) Laryngeal cancer Comment: - Recurrent, s/p resection of ca 09/01/16; s/p tracheostomy 03/01/18; s/p total laryngectomy 03/07/[address] Stubbs - Management per ENT - Dr. Stubbs, would prefer to not have PEG placed; plan to continue nasoenteral feeds and attempt PO feeds within upcoming 2 weeks under guidance and direction of ENT. Today NG got plugged. D/w , Dr. Richardson will exchange it today in PM on tomorrow AM. for now switched IVF to D5LR. (2) Malnutrition Comment: - Acute, moderate; see assessment by [employer] - Continue tube feedings based on [employer] recommendations once TF patent (3) Tracheostomy in place Comment: - On 03/01/18 - Trach care as needed (4) Ventricular tachycardia Comment: - Patient had 53 beat run of VT overnight on 03/15/18 - Cardiology consulted and case d/w. Cont Amio gtt till tommorow, then either amio OV 200 ng BID or Amio PO 400 mg BID. - Echo revealed EF of 35% to 40% - Pt likely had ACS post op as evidenced by EKG changes , lwer EF and wall motion abdn on Echo suggesting LAD as culprit. will treat medically for now waith ASA/Plavix. will need a Life Vest. (5) Atrial fibrillation Comment: chronic, in the past pt refused anticuagulation (6) CAD (coronary artery disease) Comment: as discussed above, pam ACS post op (7) Diabetes mellitus Current Visit: Yes Comment: placed on D5LR when TF held Finger sticks Q6hr Cont glargine 5 units (8) HTN (hypertension) Comment: controlled (9) DVT prophylaxis Comment: HSQ (10) Thyroid function study abnormality Comment: TSH and free T4 high, but T3 low. 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 Recommend repeat testing in 2 weeks Status and Disposition: Disposition planning pending definitive feeding plan and recommendations from Dr. Stubbs. Tentative plan for swing status once medically stable
[2018-03-16] MEDS ORDERED: D5LR 1000 ML BAG* 1,000 ML IV SCH ×2 (12:00→12:03)
[2018-03-16] MEDS: Morphine 4 MG/ML VIAL (1 ml) 4 MG/ML VIAL IV PRN ×4 (12:00→22:26)
[2018-03-16] MEDS ORDERED: Furosemide IV* 10 MG/ML VIAL (40 MG) IV ONE (12:03)
[2018-03-16] MEDS ORDERED: Amiodarone 360 MG IVPREMIX* 360 MG/200 ML BAG IV SCH (14:00)
[2018-03-16] MEDS: Insulin GLARGINE(*) 1 UNITS UNIT SUBCUT SCH (15:14)
[2018-03-16] MEDS: Heparin VIAL(*) 5000 UNITS/ML VIAL (FIVE THOUSAND) SUBCUT SCH ×2 (15:14→22:26)
[2018-03-16] MEDS ORDERED: Lidocaine 4% TOPICAL* 50 ML TOP.SOLN ONE (19:36)
[2018-03-16] MEDS ORDERED: Lidocaine 2% JELLY* 6 ML JELLY TOPICAL ONE ×2 (19:36→21:00)
[2018-03-16] MEDS ORDERED: Lidocaine 4% TOPICAL* 50 ML TOP.SOLN TOPICAL ONE (21:00)
[2018-03-16] MEDS ORDERED: oxyCODONE TAB* 5 MG TAB PO PRN ×2 (22:00→22:01)
--- NOTE | 2018-03-16 22:03 | PN ---
PROGRESS NOTE: DATE OF VISIT: 03/16/18 SUBJECTIVE: I came in this evening because I talked to Dr. Barbosa about his care with the runs of V-tach and apparent myocardial infarction that he has had. He has been transferred back into the ICU for care related to that. His Dobhoff tube also had clotted off and I am here to put a new one in. His nose was sprayed with some 4% lidocaine and initially the nasolaryngoscope was inserted and I was able to visualize the salivary bypass tube in his oropharynx and found the lumen going in through his neopharynx. We passed the new Dobhoff tube through the nostril and under visualization, I was able to see it going to the tube. I then looked in the mouth and was able to guide the Dobhoff tube to the lumen of the salivary bypass tube, inserted into the stomach. Air was blown in to confirm placement and the magnetic securing system was used to attach it to the nose. A KUB was obtained and the tip was in the stomach. This tube may be used. [id number]/[facility] #: [id number] MTDD
[2018-03-16] MEDS: Atorvastatin* 40 MG TAB NG TUBE SCH (22:27)
[2018-03-17] MEDS: Heparin VIAL(*) 5000 UNITS/ML VIAL (FIVE THOUSAND) SUBCUT SCH ×3 (07:08→20:08)
[2018-03-17] MEDS: Insulin LISPRO* 1 UNITS UNIT SUBCUT SCH ×3 (07:27→18:08)
[2018-03-17 07:30] LABS: ABS Basophils 0 10^3/ul (0-0.2); ABS Eosinophils 0 10^3/ul (0-0.6); ABS Lymphocytes 0.4 10^3/ul (1.0-4.8); ABS Monocytes 0.8 10^3/ul (0-0.8); ABS Neutrophils 8.3 10^3/ul (1.5-7.7); ABS Nucleated RBC 0 10^3/ul; Eosinophil % 0.5 %; Hematocrit 29 % (42-52); Hemoglobin 9.6 g/dl (14.0-18.0); Lymphocyte % 4.4 %; Mean Corpuscular HGB Conc 33 g/dl (31-36); Mean Corpuscular Hemoglobin 28 pg (27-31); Mean Corpuscular Volume 85 fL (80-94); Mean Platelet Volume 7.2 fL (7.4-10.4); Nucleated Red Blood Cells % 0; Platelet Count 295 10^3/ul (150-450); Red Blood Count 3.38 10^6/ul (4.00-5.40); Red Cell Distribution Width 17 % (10.5-15); White Blood Count 9.6 10^3/ul (3.5-10.8)
[2018-03-17 07:42] LABS: BUN/Creatinine Ratio 16.7 (8-20); Calcium 8.3 mg/dL (8.6-10.3); EGFR African American 48.8 (>60); EGFR Non-African American 40.3 (>60); Magnesium 2.1 mg/dL (1.9-2.7); Potassium 4.1 mmol/L (3.5-5.0)
[2018-03-17] MEDS: metroNIDAZOLE IV 500 MG/100ML* 500 MG/100 ML BAG IVPB SCH ×3 (08:27→23:38)
--- NOTE | 2018-03-17 08:40 | PN ---
Subjective Date of Service: 03/17/18 Interval History: Pt's breathing "a little better" after he received a dose of IV Lasix last PM Dobhoff NG tube exchanged by DR. Stubbs last night Family History: Unchanged from Admission Social History: Unchanged from Admission Past Medical History: Unchanged from Admission Objective Active Medications: Acetaminophen (Tylenol Adult Liq*) 650 mg PEG TUBE Q4H PRN PRN Reason: PAIN Last Admin: 03/14/18 08:00 Dose: 650 mg Al Hydrox/Mg Hydrox/Simethicone (Maalox Plus*) 30 ml NG TUBE Q6H PRN PRN Reason: DYSPEPSIA Last Admin: 03/15/18 10:16 Dose: 30 ml Aspirin (Aspirin 81 Mg Chew Tab*) 81 mg NG TUBE DAILY [facility] Atorvastatin Calcium (Lipitor*) 40 mg NG TUBE BEDTIME [facility] Last Admin: 03/16/18 22:27 Dose: 40 mg Clopidogrel Bisulfate (Plavix Tab*) 75 mg .SEE ORDER DAILY [facility] Dextrose (D50w Syringe 50 Ml*) 12.5 gm IV PUSH .FOR FS < 60 - SS PRN PRN Reason: FS < 60 Heparin Sodium (Porcine) (Heparin Vial(*)) 5,000 units SUBCUT Q8HR [facility] Last Admin: 03/17/18 07:08 Dose: 5,000 units Heparin Sodium (Porcine) (Heparin Flush Picc/Ml/Cvc(*)) 1 - 3 ml FLUSH 0600, 1800 [facility]; Protocol Last Admin: 03/17/18 07:08 Dose: 1 ml Hydralazine HCl (Apresoline Iv*) 10 mg IV SLOW PU Q6H PRN PRN Reason: SBP>165, HOLD FOR HR<60 Last Admin: 03/15/18 07:49 Dose: 10 mg Metronidazole/Sodium Chloride (Flagyl 500 Mg Ivpb*) 500 mg in 100 mls @ 100 mls /hr IVPB 0730,1530,2330 [facility] Last Admin: 03/17/18 08:27 Dose: 100 mls/hr Insulin Glargine (Lantus(*)) 5 units SUBCUT Q24H [facility] Last Admin: 03/16/18 15:14 Dose: 5 units Insulin Human Lispro (Humalog*) 0 units SUBCUT Q6HR [facility]; Protocol Last Admin: 03/17/18 07:27 Dose: 1 unit Lisinopril (Prinivil Tab*) 10 mg PO DAILY [facility] Last Admin: 03/16/18 08:45 Dose: 10 mg Morphine Sulfate (Morphine Vial*) 1 mg IV Q2H PRN PRN Reason: PAIN Last Admin: 03/16/18 22:26 Dose: 1 mg Ondansetron HCl (Zofran Inj*) 4 mg IV Q6H PRN PRN Reason: NAUSEA/VOMITING Last Admin: 03/15/18 08:02 Dose: 4 mg Oxycodone HCl (Roxycodone Tab*) 10 mg PO Q4H PRN PRN Reason: SEVERE PAIN Oxycodone HCl (Roxycodone Tab*) 5 mg PO Q4H PRN PRN Reason: PAIN - MODERATE Pantoprazole Sodium (Protonix Iv*) 40 mg IV DAILY [facility] Last Admin: 03/16/18 08:45 Dose: 40 mg Vital Signs - 8 hr 03/17/18 03/17/18 03/17/18 01:00 01:01 02:00 Temperature Pulse Rate 77 Respiratory 21 14 18 Rate Blood Pressure 131/72 (mmHg) O2 Sat by Pulse 97 Oximetry 03/17/18 03/17/18 03/17/18 02:01 03:00 04:00 Temperature Pulse Rate 74 113 Respiratory 16 21 12 Rate Blood Pressure 143/65 129/67 (mmHg) O2 Sat by Pulse 96 96 Oximetry 03/17/18 03/17/18 03/17/18 04:01 05:00 05:01 Temperature Pulse Rate 71 82 Respiratory 6 20 16 Rate Blood Pressure 126/80 132/69 (mmHg) O2 Sat by Pulse 97 96 Oximetry 03/17/18 03/17/18 03/17/18 06:00 07:41 07:50 Temperature 97.9 F Pulse Rate 86 Respiratory 20 Rate Blood Pressure 144/79 (mmHg) O2 Sat by Pulse 93 94 Oximetry Oxygen Devices in Use Now: Tracheostomy Collar Appearance: 87 yo M in nAD, AAO, mouthing words due to tracheostomy in place Eyes: No Scleral Icterus, PERRLA Ears/Nose/Mouth/Throat: NL Teeth, Lips, Gums, Mucous Membranes Moist Neck: NL Appearance and Movements; NL JVP, - - tracheostomy with trach collar in place Respiratory: Symmetrical Chest Expansion and Respiratory Effort, - - decreased breath sounds with crackles at bases Cardiovascular: - - irregular Abdominal: NL Sounds; No Tenderness; No Distention Lymphatic: No Cervical Adenopathy Extremities: No Clubbing, Cyanosis, - - +1 pitting leg edema b/l Neurological: NL Muscle Strength and Tone - Nutrition: Malnutrition Diagnosis/Plan Malnutrition Assessment by Registered Dietitian: Malnutrition Assessment Clinical Characteristics Acute,Moderate Malnutrition Assessment: - 6.1% wt loss in past one month Criteria - mild temporal muscle wasting - intake likely <75% EEE x 7 days Malnutrition Assessment: 1. follow [employer] re-evaluation of swallowing Interventions function; NPO at this time 2. follow for potential need for PEG placement 3. offer and begin po supplements when pt ready for some level of po intake Malnutrition Assessment: Goals 1. when safe for po intake, pt will tolerate least-restrictive diet texture without evidence of swallowing difficulty or aspiration 2. adequate po intake to maintain present wt and hydration status 3. achieve and maintain serum electrolytes within normal ranges 4. achieve and maintain regulation of bowel pattern; no constipation (or diarrhea) Result Diagrams: 03/17/18 07:10 03/17/18 07:10 Additional Lab and Data: Laboratory Results - last 24 hr 03/14/18 03/14/18 03/14/18 06:47 10:44 11:38 WBC RBC Hgb Hct MCV MCH MCHC RDW Plt Count MPV Neut % (Auto) Lymph % (Auto) [place] % (Auto) Eos % (Auto) Baso % (Auto) Absolute Neuts (auto) Absolute Lymphs (auto) Absolute Monos (auto) Absolute Eos (auto) Absolute Basos (auto) Absolute Nucleated RBC Nucleated RBC % Sodium Potassium Chloride Carbon Dioxide Anion Gap BUN Creatinine Est GFR ( Amer) Est GFR (Non-Af Amer) BUN/Creatinine Ratio Glucose POC Glucose (mg/dL) 441 H* Glucose Meter Confirm 160 H Calcium Magnesium 2.1 03/14/18 03/14/18 03/15/18 17:44 23:55 05:40 WBC RBC Hgb Hct MCV MCH MCHC RDW Plt Count MPV Neut % (Auto) Lymph % (Auto) [place] % (Auto) Eos % (Auto) Baso % (Auto) Absolute Neuts (auto) Absolute Lymphs (auto) Absolute Monos (auto) Absolute Eos (auto) Absolute Basos (auto) Absolute Nucleated RBC Nucleated RBC % Sodium Potassium Chloride Carbon Dioxide Anion Gap BUN Creatinine Est GFR ( Amer) Est GFR (Non-Af Amer) BUN/Creatinine Ratio Glucose POC Glucose (mg/dL) 160 H 143 H 131 H Glucose Meter Confirm Calcium Magnesium 03/15/18 03/15/18 06:34 06:34 WBC 13.2 H RBC 3.86 L Hgb 10.9 L Hct 33 L MCV 85 MCH 28 MCHC 33 RDW 16 H Plt Count 296 MPV 7.9 Neut % (Auto) 89.4 Lymph % (Auto) 4.4 [place] % (Auto) 4.5 Eos % (Auto) 0.7 Baso % (Auto) 1.0 Absolute Neuts (auto) 11.8 H Absolute Lymphs (auto) 0.6 L Absolute Monos (auto) 0.6 Absolute Eos (auto) 0.1 Absolute Basos (auto) 0.1 Absolute Nucleated RBC 0 Nucleated RBC % 0.1 Sodium 142 Potassium 4.3 Chloride 112 H Carbon Dioxide 24 Anion Gap 6 BUN 22 Creatinine 1.21 H Est GFR ( Amer) 68.3 Est GFR (Non-Af Amer) 56.5 BUN/Creatinine Ratio 18.2 Glucose 102 H POC Glucose (mg/dL) Glucose Meter Confirm Calcium 8.7 Magnesium 2.1 Microbiology and Other Data: Microbiology 03/01/18 14:50 Nasal Screen MRSA (PCR) - Final Nasal Mrsa Not Detected Assess/Plan/Problems-Billing Assessment: Mr. 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 - Patient Problems (1) Laryngeal cancer Comment: - Recurrent, s/p resection of ca 09/01/16; s/p tracheostomy 03/01/18; s/p total laryngectomy 03/07/[address] Stubbs - Management per ENT. On metronidazole post op - Dr. Stubbs, would prefer to not have PEG placed; plan to continue nasoenteral feeds and attempt PO feeds within upcoming 2 weeks under guidance and direction of ENT. NG plugged and exchanged ob 03/16/18. 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 Off Amio gtt , switching to PO amiodarone 400 mg BID. - Echo revealed EF of 35% to 40% - Pt likely had ACS post op as evidenced by EKG changes , lower EF and wall motion abn on Echo suggesting LAD as culprit. Will treat medically for now with ASA/Plavix. will need a Life Vest. (5) Atrial fibrillation Comment: chronic, in the past pt refused anticuagulation (6) CAD (coronary artery disease) Comment: as discussed above, likley ACS post op (7) Diabetes mellitus Current Visit: Yes Comment: Finger sticks Q6hr Cont glargine 5 units (8) HTN (hypertension) Comment: controlled (9) Thyroid function study abnormality Comment: TSH and free T4 high, but T3 low. 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 Recommend repeat testing in 2 weeks (10) DVT prophylaxis Comment: HSQ Status and Disposition: Disposition planning pending definitive feeding plan and recommendations from Dr. Stubbs. Tentative plan for swing status once medically stable
[2018-03-17] MEDS: Lisinopril TAB* 10 MG PO SCH (09:20)
[2018-03-17] MEDS: Amiodarone TAB* 400 MG NG TUBE SCH ×2 (09:20→20:09)
[2018-03-17] MEDS: Clopidogrel TAB* 75 MG SCH (09:20)
[2018-03-17] MEDS: Aspirin 81 mg CHEW TAB* 81 MG TAB.CHEW NG TUBE SCH (09:21)
[2018-03-17] MEDS: Furosemide IV* 10 MG/ML VIAL (40 MG) IV SCH (09:21)
[2018-03-17] MEDS: Pantoprazole IV* 40 MG IV SCH (09:21)
[2018-03-17] MEDS: Metoprolol Tartrate TAB* 25 MG PO SCH ×2 (10:59→20:09)
[2018-03-17] MEDS: Ondansetron INJ* 2 MG/ML VIAL IV PRN (12:01)
[2018-03-17] MEDS: Insulin GLARGINE(*) 1 UNITS UNIT SUBCUT SCH (15:15)
[2018-03-17] MEDS: Morphine 4 MG/ML VIAL (1 ml) 4 MG/ML VIAL IV PRN (20:03)
[2018-03-17] MEDS: Atorvastatin* 40 MG TAB NG TUBE SCH (20:09)
[2018-03-18] MEDS: Insulin LISPRO* 1 UNITS UNIT SUBCUT SCH ×4 (00:15→17:52)
[2018-03-18] MEDS: Heparin VIAL(*) 5000 UNITS/ML VIAL (FIVE THOUSAND) SUBCUT SCH ×3 (05:09→21:54)
[2018-03-18 06:00] LABS: BUN/Creatinine Ratio 18.7 (8-20); Calcium 8.3 mg/dL (8.6-10.3); EGFR African American 47.4 (>60); EGFR Non-African American 39.2 (>60); Potassium 4.1 mmol/L (3.5-5.0)
[2018-03-18] MEDS: Lisinopril TAB* 10 MG PO SCH (08:09)
[2018-03-18] MEDS: Metoprolol Tartrate TAB* 25 MG PO SCH ×2 (08:09→21:53)
[2018-03-18] MEDS: Amiodarone TAB* 400 MG NG TUBE SCH ×2 (08:09→21:54)
[2018-03-18] MEDS: metroNIDAZOLE IV 500 MG/100ML* 500 MG/100 ML BAG IVPB SCH ×3 (08:09→23:05)
[2018-03-18] MEDS: Aspirin 81 mg CHEW TAB* 81 MG TAB.CHEW NG TUBE SCH (08:09)
[2018-03-18] MEDS: Pantoprazole IV* 40 MG IV SCH (08:10)
[2018-03-18] MEDS: Furosemide IV* 10 MG/ML VIAL (40 MG) IV SCH (08:10)
[2018-03-18] MEDS: Clopidogrel TAB* 75 MG SCH (08:10)
[2018-03-18] MEDS: Morphine 4 MG/ML VIAL (1 ml) 4 MG/ML VIAL IV PRN ×3 (08:30→23:05)
--- NOTE | 2018-03-18 08:48 | PN ---
PROGRESS NOTE: DATE OF VISIT: 03/18/18 SUBJECTIVE: The patient has been transferred back out of the ICU to telemetry and appears to be doing well. He has no complaints this morning as we are talking. Incision is clean, dry, and intact. Stoma is clear. ASSESSMENT: From a surgical standpoint, the patient is doing very well. PLAN: The plan is to remove his salivary bypass tube on Tuesday, have him have a barium swallow on Tuesday; and if all goes well, he can start eating soft foods and get the NG tube out. [id number]/[facility] #: [id number] MTDD
--- NOTE | 2018-03-18 12:38 | PN ---
Subjective Date of Service: 03/18/18 Interval History: Pt feels " a little better" today Bowl movements are loose and 3-4/day Family History: Unchanged from Admission Social History: Unchanged from Admission Past Medical History: Unchanged from Admission Objective Active Medications: Acetaminophen (Tylenol Adult Liq*) 650 mg PEG TUBE Q4H PRN PRN Reason: PAIN Last Admin: 03/14/18 08:00 Dose: 650 mg Al Hydrox/Mg Hydrox/Simethicone (Maalox Plus*) 30 ml NG TUBE Q6H PRN PRN Reason: DYSPEPSIA Last Admin: 03/15/18 10:16 Dose: 30 ml Amiodarone HCl (Cordarone Tab*) 400 mg NG TUBE BID [facility] Last Admin: 03/18/18 08:09 Dose: 400 mg Aspirin (Aspirin 81 Mg Chew Tab*) 81 mg NG TUBE DAILY [facility] Last Admin: 03/18/18 08:09 Dose: 81 mg Atorvastatin Calcium (Lipitor*) 40 mg NG TUBE BEDTIME [facility] Last Admin: 03/17/18 20:09 Dose: 40 mg Clopidogrel Bisulfate (Plavix Tab*) 75 mg .SEE ORDER DAILY [facility] Last Admin: 03/18/18 08:10 Dose: 75 mg Furosemide (Lasix Iv*) 40 mg IV DAILY [facility] Last Admin: 03/18/18 08:10 Dose: 40 mg Heparin Sodium (Porcine) (Heparin Vial(*)) 5,000 units SUBCUT Q8HR [facility] Last Admin: 03/18/18 05:09 Dose: 5,000 units Heparin Sodium (Porcine) (Heparin Flush Picc/Ml/Cvc(*)) 1 - 3 ml FLUSH 0600, 1800 [facility]; Protocol Last Admin: 03/18/18 05:11 Dose: 1 ml Hydralazine HCl (Apresoline Iv*) 10 mg IV SLOW PU Q6H PRN PRN Reason: SBP>165, HOLD FOR HR<60 Last Admin: 03/15/18 07:49 Dose: 10 mg Metronidazole/Sodium Chloride (Flagyl 500 Mg Ivpb*) 500 mg in 100 mls @ 100 mls /hr IVPB 0730,1530,2330 [facility] Last Admin: 03/18/18 08:09 Dose: 100 mls/hr Insulin Glargine (Lantus(*)) 5 units SUBCUT Q24H [facility] Last Admin: 03/17/18 15:15 Dose: 5 units Insulin Human Lispro (Humalog*) 0 units SUBCUT Q6HR [facility]; Protocol Last Admin: 03/18/18 11:41 Dose: 2 unit Metoprolol Tartrate (Lopressor Tab*) 12.5 mg PO Q12HR [facility] Last Admin: 03/18/18 08:09 Dose: 12.5 mg Morphine Sulfate (Morphine Vial*) 1 mg IV Q2H PRN PRN Reason: PAIN Last Admin: 03/18/18 08:30 Dose: 1 mg Ondansetron HCl (Zofran Inj*) 4 mg IV Q6H PRN PRN Reason: NAUSEA/VOMITING Last Admin: 03/17/18 12:01 Dose: 4 mg Oxycodone HCl (Roxycodone Tab*) 10 mg PO Q4H PRN PRN Reason: SEVERE PAIN Oxycodone HCl (Roxycodone Tab*) 5 mg PO Q4H PRN PRN Reason: PAIN - MODERATE Pantoprazole Sodium (Protonix Iv*) 40 mg IV DAILY [facility] Last Admin: 03/18/18 08:10 Dose: 40 mg Vital Signs - 8 hr 03/18/18 03/18/18 03/18/18 07:24 08:30 11:41 Temperature 98.2 F Pulse Rate 111 Respiratory 20 16 16 Rate Blood Pressure 132/96 (mmHg) O2 Sat by Pulse 98 Oximetry Oxygen Devices in Use Now: Tracheostomy Collar Appearance: 87 yo M in nAD, AAOx3 Eyes: No Scleral Icterus, PERRLA Ears/Nose/Mouth/Throat: NL Teeth, Lips, Gums, Mucous Membranes Moist, - - tracheostomy in place Neck: NL Appearance and Movements; NL JVP, Trachea Midline Respiratory: Symmetrical Chest Expansion and Respiratory Effort, - - crackles at b/l bases Cardiovascular: NL Sounds; No Murmurs; No JVD, - - irregular Abdominal: NL Sounds; No Tenderness; No Distention, No Hepatosplenomegaly Lymphatic: No Cervical Adenopathy Extremities: No Clubbing, Cyanosis, - - diffuse all extremities edema Skin: No Nodules or Sclerosis Neurological: Alert and Oriented x 3, NL Muscle Strength and Tone - Nutrition: Malnutrition Diagnosis/Plan Malnutrition Assessment by Registered Dietitian: Malnutrition Assessment Clinical Characteristics Acute,Moderate Malnutrition Assessment: - 6.1% wt loss in past one month Criteria - mild temporal muscle wasting - intake likely <75% EEE x 7 days Malnutrition Assessment: 1. follow TEARER re-evaluation of swallowing Interventions function; NPO at this time 2. follow for potential need for PEG placement 3. offer and begin po supplements when pt ready for some level of po intake Malnutrition Assessment: Goals 1. when safe for po intake, pt will tolerate least-restrictive diet texture without evidence of swallowing difficulty or aspiration 2. adequate po intake to maintain present wt and hydration status 3. achieve and maintain serum electrolytes within normal ranges 4. achieve and maintain regulation of bowel pattern; no constipation (or diarrhea) Result Diagrams: 03/17/18 07:10 03/18/18 05:30 Additional Lab and Data: Laboratory Results - last 24 hr 03/14/18 03/14/18 03/14/18 06:47 10:44 11:38 WBC RBC Hgb Hct MCV MCH MCHC RDW Plt Count MPV Neut % (Auto) Lymph % (Auto) [place] % (Auto) Eos % (Auto) Baso % (Auto) Absolute Neuts (auto) Absolute Lymphs (auto) Absolute Monos (auto) Absolute Eos (auto) Absolute Basos (auto) Absolute Nucleated RBC Nucleated RBC % Sodium Potassium Chloride Carbon Dioxide Anion Gap BUN Creatinine Est GFR ( Amer) Est GFR (Non-Af Amer) BUN/Creatinine Ratio Glucose POC Glucose (mg/dL) 441 H* Glucose Meter Confirm 160 H Calcium Magnesium 2.1 03/14/18 03/14/18 03/15/18 17:44 23:55 05:40 WBC RBC Hgb Hct MCV MCH MCHC RDW Plt Count MPV Neut % (Auto) Lymph % (Auto) [place] % (Auto) Eos % (Auto) Baso % (Auto) Absolute Neuts (auto) Absolute Lymphs (auto) Absolute Monos (auto) Absolute Eos (auto) Absolute Basos (auto) Absolute Nucleated RBC Nucleated RBC % Sodium Potassium Chloride Carbon Dioxide Anion Gap BUN Creatinine Est GFR ( Amer) Est GFR (Non-Af Amer) BUN/Creatinine Ratio Glucose POC Glucose (mg/dL) 160 H 143 H 131 H Glucose Meter Confirm Calcium Magnesium 03/15/18 03/15/18 06:34 06:34 WBC 13.2 H RBC 3.86 L Hgb 10.9 L Hct 33 L MCV 85 MCH 28 MCHC 33 RDW 16 H Plt Count 296 MPV 7.9 Neut % (Auto) 89.4 Lymph % (Auto) 4.4 [place] % (Auto) 4.5 Eos % (Auto) 0.7 Baso % (Auto) 1.0 Absolute Neuts (auto) 11.8 H Absolute Lymphs (auto) 0.6 L Absolute Monos (auto) 0.6 Absolute Eos (auto) 0.1 Absolute Basos (auto) 0.1 Absolute Nucleated RBC 0 Nucleated RBC % 0.1 Sodium 142 Potassium 4.3 Chloride 112 H Carbon Dioxide 24 Anion Gap 6 BUN 22 Creatinine 1.21 H Est GFR ( Amer) 68.3 Est GFR (Non-Af Amer) 56.5 BUN/Creatinine Ratio 18.2 Glucose 102 H POC Glucose (mg/dL) Glucose Meter Confirm Calcium 8.7 Magnesium 2.1 Microbiology and Other Data: Microbiology 03/01/18 14:50 Nasal Screen MRSA (PCR) - Final Nasal Mrsa Not Detected Assess/Plan/Problems-Billing Assessment: Mr. 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 - Patient Problems (1) Laryngeal cancer Comment: - Recurrent, s/p resection of ca 09/01/16; s/p tracheostomy 03/01/18; s/p total laryngectomy 03/07/[address] Stubbs - Management per ENT. On metronidazole post op - Dr. Stubbs, would prefer to not have PEG placed; plan to continue nasoenteral feeds and attempt PO feeds within upcoming 2 weeks under guidance and direction of ENT. NG plugged and exchanged ob 03/16/18. (2) Malnutrition Comment: - Acute, moderate; see assessment by Rn Patient Care - Continue tube feedings based on Rn Patient Care recommendations (3) Tracheostomy in place Comment: - On 03/01/18 - Trach care as needed (4) Ventricular tachycardia Comment: - Patient had 53 beat run of VT overnight on 03/15/18 - Cardiology consulted and case d/w. Off Amio gtt , on 03/17/18 switched to PO amiodarone 400 mg BID. - Echo revealed EF of 35% to 40% - Pt likely had ACS post op as evidenced by EKG changes , lower EF and wall motion abn on Echo suggesting LAD as culprit. Will treat medically for now with ASA/Plavix. will need a Life Vest. (5) Atrial fibrillation Comment: chronic, in the past pt refused anticuagulation (6) CAD (coronary artery disease) Comment: as discussed above, pam ACS post op (7) Diabetes mellitus Comment: Finger sticks Q6hr Cont glargine 5 units (8) HTN (hypertension) Comment: controlled (9) Thyroid function study abnormality Comment: TSH and free T4 high, but T3 low. 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 Recommend repeat testing in 2 weeks (10) CKD (chronic kidney disease) stage 3, GFR 30-59 ml/min Comment: with creat at baseline today (11) Acute systolic CHF (congestive heart failure) Comment: with EF 35% Cont Daily Lasix (12) DVT prophylaxis Comment: HSQ Status and Disposition: Disposition planning pending definitive feeding plan and recommendations from Dr. Stubbs. Tentative plan for swing status once medically stable
[2018-03-18] MEDS: Insulin GLARGINE(*) 1 UNITS UNIT SUBCUT SCH (15:37)
[2018-03-18] MEDS: Atorvastatin* 40 MG TAB NG TUBE SCH (21:54)
[2018-03-19] MEDS: Insulin LISPRO* 1 UNITS UNIT SUBCUT SCH ×5 (00:24→23:42)
[2018-03-19 05:11] LABS: Hematocrit 29 % (42-52); Hemoglobin 9.8 g/dl (14.0-18.0); Mean Corpuscular HGB Conc 34 g/dl (31-36); Mean Corpuscular Hemoglobin 29 pg (27-31); Mean Corpuscular Volume 85 fL (80-94); Mean Platelet Volume 7.1 fL (7.4-10.4); Platelet Count 335 10^3/ul (150-450); Red Blood Count 3.39 10^6/ul (4.00-5.40); Red Cell Distribution Width 17 % (10.5-15); White Blood Count 9.9 10^3/ul (3.5-10.8)
[2018-03-19 05:30] LABS: BUN/Creatinine Ratio 19.8 (8-20); Calcium 8.1 mg/dL (8.6-10.3); EGFR African American 47.1 (>60); EGFR Non-African American 38.9 (>60)
[2018-03-19] MEDS: Heparin VIAL(*) 5000 UNITS/ML VIAL (FIVE THOUSAND) SUBCUT SCH ×3 (05:35→20:50)
[2018-03-19 06:01] LABS: Magnesium 1.9 mg/dL (1.9-2.7)
[2018-03-19] MEDS ORDERED: Metolazone TAB* 5 MG PO ONE (08:28)
--- NOTE | 2018-03-19 08:35 | PN ---
Subjective Date of Service: 03/19/18 Interval History: Despite Lasix tx daily pt is gains weights and still c/o feeling "hard to breathe" Family History: Unchanged from Admission Social History: Unchanged from Admission Past Medical History: Unchanged from Admission Objective Active Medications: Acetaminophen (Tylenol Adult Liq*) 650 mg PEG TUBE Q4H PRN PRN Reason: PAIN Last Admin: 03/14/18 08:00 Dose: 650 mg Al Hydrox/Mg Hydrox/Simethicone (Maalox Plus*) 30 ml NG TUBE Q6H PRN PRN Reason: DYSPEPSIA Last Admin: 03/15/18 10:16 Dose: 30 ml Amiodarone HCl (Cordarone Tab*) 400 mg NG TUBE BID [facility] Last Admin: 03/18/18 21:54 Dose: 400 mg Aspirin (Aspirin 81 Mg Chew Tab*) 81 mg NG TUBE DAILY [facility] Last Admin: 03/18/18 08:09 Dose: 81 mg Atorvastatin Calcium (Lipitor*) 40 mg NG TUBE BEDTIME [facility] Last Admin: 03/18/18 21:54 Dose: 40 mg Clopidogrel Bisulfate (Plavix Tab*) 75 mg .SEE ORDER DAILY [facility] Last Admin: 03/18/18 08:10 Dose: 75 mg Furosemide (Lasix Iv*) 40 mg IV DAILY [facility] Last Admin: 03/18/18 08:10 Dose: 40 mg Furosemide (Lasix Iv*) 40 mg IV ONCE ONE Stop: 03/19/18 17:01 Heparin Sodium (Porcine) (Heparin Vial(*)) 5,000 units SUBCUT Q8HR [facility] Last Admin: 03/19/18 05:35 Dose: 5,000 units Heparin Sodium (Porcine) (Heparin Flush Picc/Ml/Cvc(*)) 1 - 3 ml FLUSH 0600, 1800 [facility]; Protocol Last Admin: 03/19/18 04:54 Dose: 1 ml Hydralazine HCl (Apresoline Iv*) 10 mg IV SLOW PU Q6H PRN PRN Reason: SBP>165, HOLD FOR HR<60 Last Admin: 03/15/18 07:49 Dose: 10 mg Metronidazole/Sodium Chloride (Flagyl 500 Mg Ivpb*) 500 mg in 100 mls @ 100 mls /hr IVPB 0730,1530,2330 [facility] Last Admin: 03/18/18 23:05 Dose: 100 mls/hr Insulin Glargine (Lantus(*)) 5 units SUBCUT Q24H [facility] Last Admin: 03/18/18 15:37 Dose: 5 units Insulin Human Lispro (Humalog*) 0 units SUBCUT Q6HR [facility]; Protocol Last Admin: 03/19/18 06:04 Dose: Not Given Metoprolol Tartrate (Lopressor Tab*) 12.5 mg PO Q12HR [facility] Last Admin: 03/18/18 21:53 Dose: 12.5 mg Morphine Sulfate (Morphine Vial*) 1 mg IV Q2H PRN PRN Reason: PAIN Last Admin: 03/18/18 23:05 Dose: 1 mg Ondansetron HCl (Zofran Inj*) 4 mg IV Q6H PRN PRN Reason: NAUSEA/VOMITING Last Admin: 03/17/18 12:01 Dose: 4 mg Oxycodone HCl (Roxycodone Tab*) 10 mg PO Q4H PRN PRN Reason: SEVERE PAIN Oxycodone HCl (Roxycodone Tab*) 5 mg PO Q4H PRN PRN Reason: PAIN - MODERATE Pantoprazole Sodium (Protonix Iv*) 40 mg IV DAILY [facility] Last Admin: 03/18/18 08:10 Dose: 40 mg Vital Signs - 8 hr 03/19/18 04:04 Temperature 96.8 F Pulse Rate 93 Respiratory 18 Rate Blood Pressure 151/77 (mmHg) O2 Sat by Pulse 100 Oximetry Oxygen Devices in Use Now: Tracheostomy Collar Appearance: 87 yo M in NAD, AAOx3. mouthing words due to tracheostomy Eyes: No Scleral Icterus, PERRLA Ears/Nose/Mouth/Throat: NL Teeth, Lips, Gums, Mucous Membranes Moist Neck: NL Appearance and Movements; NL JVP, - - tracheostomy in place Respiratory: Symmetrical Chest Expansion and Respiratory Effort, - - decreased breath sounds b/l Cardiovascular: NL Sounds; No Murmurs; No JVD, - - irregular Abdominal: NL Sounds; No Tenderness; No Distention, No Hepatosplenomegaly, - Lymphatic: No Cervical Adenopathy Extremities: No Clubbing, Cyanosis, - - diffuse edema in all extremities Skin: No Nodules or Sclerosis Neurological: Alert and Oriented x 3, NL Muscle Strength and Tone - Nutrition: Malnutrition Diagnosis/Plan Malnutrition Assessment by Registered Dietitian: Malnutrition Assessment Clinical Characteristics Acute,Moderate Malnutrition Assessment: - 6.1% wt loss in past one month Criteria - mild temporal muscle wasting - intake likely <75% EEE x 7 days Malnutrition Assessment: 1. follow VICE PRESIDENT OF SOFTWARE ENGINEERING re-evaluation of swallowing Interventions function; NPO at this time 2. follow for potential need for PEG placement 3. offer and begin po supplements when pt ready for some level of po intake Malnutrition Assessment: Goals 1. when safe for po intake, pt will tolerate least-restrictive diet texture without evidence of swallowing difficulty or aspiration 2. adequate po intake to maintain present wt and hydration status 3. achieve and maintain serum electrolytes within normal ranges 4. achieve and maintain regulation of bowel pattern; no constipation (or diarrhea) Result Diagrams: 03/19/18 05:00 03/19/18 05:00 Additional Lab and Data: Laboratory Results - last 24 hr 03/14/18 03/14/18 03/14/18 06:47 10:44 11:38 WBC RBC Hgb Hct MCV MCH MCHC RDW Plt Count MPV Neut % (Auto) Lymph % (Auto) [place] % (Auto) Eos % (Auto) Baso % (Auto) Absolute Neuts (auto) Absolute Lymphs (auto) Absolute Monos (auto) Absolute Eos (auto) Absolute Basos (auto) Absolute Nucleated RBC Nucleated RBC % Sodium Potassium Chloride Carbon Dioxide Anion Gap BUN Creatinine Est GFR ( Amer) Est GFR (Non-Af Amer) BUN/Creatinine Ratio Glucose POC Glucose (mg/dL) 441 H* Glucose Meter Confirm 160 H Calcium Magnesium 2.1 03/14/18 03/14/18 03/15/18 17:44 23:55 05:40 WBC RBC Hgb Hct MCV MCH MCHC RDW Plt Count MPV Neut % (Auto) Lymph % (Auto) [place] % (Auto) Eos % (Auto) Baso % (Auto) Absolute Neuts (auto) Absolute Lymphs (auto) Absolute Monos (auto) Absolute Eos (auto) Absolute Basos (auto) Absolute Nucleated RBC Nucleated RBC % Sodium Potassium Chloride Carbon Dioxide Anion Gap BUN Creatinine Est GFR ( Amer) Est GFR (Non-Af Amer) BUN/Creatinine Ratio Glucose POC Glucose (mg/dL) 160 H 143 H 131 H Glucose Meter Confirm Calcium Magnesium 03/15/18 03/15/18 06:34 06:34 WBC 13.2 H RBC 3.86 L Hgb 10.9 L Hct 33 L MCV 85 MCH 28 MCHC 33 RDW 16 H Plt Count 296 MPV 7.9 Neut % (Auto) 89.4 Lymph % (Auto) 4.4 [place] % (Auto) 4.5 Eos % (Auto) 0.7 Baso % (Auto) 1.0 Absolute Neuts (auto) 11.8 H Absolute Lymphs (auto) 0.6 L Absolute Monos (auto) 0.6 Absolute Eos (auto) 0.1 Absolute Basos (auto) 0.1 Absolute Nucleated RBC 0 Nucleated RBC % 0.1 Sodium 142 Potassium 4.3 Chloride 112 H Carbon Dioxide 24 Anion Gap 6 BUN 22 Creatinine 1.21 H Est GFR ( Amer) 68.3 Est GFR (Non-Af Amer) 56.5 BUN/Creatinine Ratio 18.2 Glucose 102 H POC Glucose (mg/dL) Glucose Meter Confirm Calcium 8.7 Magnesium 2.1 Microbiology and Other Data: Microbiology 03/01/18 14:50 Nasal Screen MRSA (PCR) - Final Nasal Mrsa Not Detected Assess/Plan/Problems-Billing Assessment: Mr. 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 - Patient Problems (1) Laryngeal cancer Comment: - Recurrent, s/p resection of ca 09/01/16; s/p tracheostomy 03/01/18; s/ p total laryngectomy 03/07/[address] Stubbs - Management per ENT. On metronidazole post op - Dr. Stubbs, would prefer to not have PEG placed; plan to continue nasoenteral feeds and attempt PO feeds within upcoming 2 weeks under guidance and direction of ENT. NG plugged and exchanged ob 03/16/18. currently on TF at goal 60 ml/hr (2) Malnutrition Comment: - Acute, moderate; see assessment by Construction Trades Teacher - Continue tube feedings based on Construction Trades Teacher recommendations (3) Tracheostomy in place Comment: - On 03/01/18 - Trach care as needed (4) Ventricular tachycardia Comment: -pt had 15 beats of v. tach on 03/18/18 night - Patient had 53 beat run of VT overnight on 03/15/18 - Cardiology consulted and case d/w. Off Amio gtt , on 03/17/18 switched to PO amiodarone 400 mg BID. - Echo revealed EF of 35% to 40% - Pt likely had ACS post op as evidenced by EKG changes , lower EF and wall motion abn on Echo suggesting LAD as culprit. Will treat medically for now with ASA/Plavix. will need a Life Vest. (5) Atrial fibrillation Comment: chronic, in the past pt refused anticuagulation (6) CAD (coronary artery disease) Comment: as discussed above, pam ACS post op (7) Diabetes mellitus Comment: Finger sticks Q6hr Cont glargine 5 units (8) HTN (hypertension) Comment: controlled (9) Thyroid function study abnormality Comment: TSH and free T4 high, but T3 low. 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 Recommend repeat testing in 2 weeks (10) CKD (chronic kidney disease) stage 3, GFR 30-59 ml/min Comment: with creat at baseline today (11) Acute systolic CHF (congestive heart failure) Comment: with EF 35% still with increasing weights and low UO. Will add metolazone one dose today in AM and a PM dose of Lasix. due to pt's malnutrition it is difficult to diurese with low overall intravascular oncotic pressure. (12) DVT prophylaxis Comment: HSQ Status and Disposition: Disposition planning pending definitive feeding plan and recommendations from Dr. Stubbs. Tentative plan for swing status once medically stable
[2018-03-19] MEDS: metroNIDAZOLE IV 500 MG/100ML* 500 MG/100 ML BAG IVPB SCH ×3 (08:40→23:26)
[2018-03-19] MEDS: Aspirin 81 mg CHEW TAB* 81 MG TAB.CHEW NG TUBE SCH (11:00)
[2018-03-19] MEDS: Clopidogrel TAB* 75 MG SCH (11:00)
[2018-03-19] MEDS: Metoprolol Tartrate TAB* 25 MG PO SCH ×2 (11:01→20:50)
[2018-03-19] MEDS: Amiodarone TAB* 400 MG NG TUBE SCH ×2 (11:01→20:50)
[2018-03-19] MEDS: Furosemide IV* 10 MG/ML VIAL (40 MG) IV SCH (11:55)
[2018-03-19] MEDS: Pantoprazole IV* 40 MG IV SCH (11:55)
[2018-03-19] MEDS: Morphine 4 MG/ML VIAL (1 ml) 4 MG/ML VIAL IV PRN ×2 (11:55→17:26)
[2018-03-19] MEDS: Insulin GLARGINE(*) 1 UNITS UNIT SUBCUT SCH (14:48)
[2018-03-19] MEDS ORDERED: Furosemide IV* 10 MG/ML VIAL (40 MG) IV ONE (17:00)
[2018-03-19] MEDS: Atorvastatin* 40 MG TAB NG TUBE SCH (20:50)
[2018-03-20 05:27] LABS: Calcium 8.5 mg/dL (8.6-10.3); Potassium 3.7 mmol/L (3.5-5.0)
[2018-03-20 05:33] LABS: EGFR African American 45.8 (>60); EGFR Non-African American 37.9 (>60)
[2018-03-20] MEDS: Insulin LISPRO* 1 UNITS UNIT SUBCUT SCH ×4 (05:34→23:19)
[2018-03-20] MEDS: Heparin VIAL(*) 5000 UNITS/ML VIAL (FIVE THOUSAND) SUBCUT SCH ×3 (05:39→20:56)
[2018-03-20 06:08] LABS: BUN/Creatinine Ratio 21.6 (8-20)
[2018-03-20 07:49] LABS: Albumin 2.7 g/dL (3.2-5.2)
[2018-03-20] MEDS ORDERED: Metolazone TAB* 5 MG PO ONE (08:00)
[2018-03-20] MEDS: metroNIDAZOLE IV 500 MG/100ML* 500 MG/100 ML BAG IVPB SCH ×3 (08:12→23:20)
[2018-03-20] MEDS: Amiodarone TAB* 400 MG NG TUBE SCH ×2 (09:30→20:56)
[2018-03-20] MEDS: Clopidogrel TAB* 75 MG SCH (09:31)
[2018-03-20] MEDS: Metoprolol Tartrate TAB* 25 MG PO SCH ×2 (09:31→20:57)
[2018-03-20] MEDS: Aspirin 81 mg CHEW TAB* 81 MG TAB.CHEW NG TUBE SCH (09:32)
[2018-03-20] MEDS: Furosemide IV* 10 MG/ML VIAL (40 MG) IV SCH (09:33)
[2018-03-20] MEDS: Pantoprazole IV* 40 MG IV SCH (09:33)
--- NOTE | 2018-03-20 11:15 | PN ---
Subjective Date of Service: 03/20/18 Interval History: Pt feels better. Breathing improved. One BM last night. Denies CP, or SOB Telem: no V.tach in 24H Family History: Unchanged from Admission Social History: Unchanged from Admission Past Medical History: Unchanged from Admission Objective Active Medications: Acetaminophen (Tylenol Adult Liq*) 650 mg PEG TUBE Q4H PRN PRN Reason: PAIN Last Admin: 03/14/18 08:00 Dose: 650 mg Al Hydrox/Mg Hydrox/Simethicone (Maalox Plus*) 30 ml NG TUBE Q6H PRN PRN Reason: DYSPEPSIA Last Admin: 03/15/18 10:16 Dose: 30 ml Amiodarone HCl (Cordarone Tab*) 400 mg NG TUBE BID [facility] Last Admin: 03/20/18 09:30 Dose: 400 mg Aspirin (Aspirin 81 Mg Chew Tab*) 81 mg NG TUBE DAILY [facility] Last Admin: 03/20/18 09:32 Dose: 81 mg Atorvastatin Calcium (Lipitor*) 40 mg NG TUBE BEDTIME [facility] Last Admin: 03/19/18 20:50 Dose: 40 mg Clopidogrel Bisulfate (Plavix Tab*) 75 mg .SEE ORDER DAILY [facility] Last Admin: 03/20/18 09:31 Dose: 75 mg Furosemide (Lasix Iv*) 40 mg IV DAILY [facility] Last Admin: 03/20/18 09:33 Dose: 40 mg Heparin Sodium (Porcine) (Heparin Vial(*)) 5,000 units SUBCUT Q8HR [facility] Last Admin: 03/20/18 05:39 Dose: 5,000 units Heparin Sodium (Porcine) (Heparin Flush Picc/Ml/Cvc(*)) 1 - 3 ml FLUSH 0600, 1800 [facility]; Protocol Last Admin: 03/20/18 10:18 Dose: 1 ml Hydralazine HCl (Apresoline Iv*) 10 mg IV SLOW PU Q6H PRN PRN Reason: SBP>165, HOLD FOR HR<60 Last Admin: 03/15/18 07:49 Dose: 10 mg Metronidazole/Sodium Chloride (Flagyl 500 Mg Ivpb*) 500 mg in 100 mls @ 100 mls /hr IVPB 0730,1530,2330 [facility] Last Admin: 03/20/18 08:12 Dose: 100 mls/hr Insulin Glargine (Lantus(*)) 5 units SUBCUT Q24H [facility] Last Admin: 03/19/18 14:48 Dose: 5 units Insulin Human Lispro (Humalog*) 0 units SUBCUT Q6HR [facility]; Protocol Last Admin: 03/20/18 05:34 Dose: Not Given Metoprolol Tartrate (Lopressor Tab*) 12.5 mg PO Q12HR [facility] Last Admin: 03/20/18 09:31 Dose: 12.5 mg Morphine Sulfate (Morphine Vial*) 1 mg IV Q2H PRN PRN Reason: PAIN Last Admin: 03/19/18 17:26 Dose: 1 mg Ondansetron HCl (Zofran Inj*) 4 mg IV Q6H PRN PRN Reason: NAUSEA/VOMITING Last Admin: 03/17/18 12:01 Dose: 4 mg Oxycodone HCl (Roxycodone Tab*) 10 mg PO Q4H PRN PRN Reason: SEVERE PAIN Oxycodone HCl (Roxycodone Tab*) 5 mg PO Q4H PRN PRN Reason: PAIN - MODERATE Pantoprazole Sodium (Protonix Iv*) 40 mg IV DAILY [facility] Last Admin: 03/20/18 09:33 Dose: 40 mg Vital Signs - 8 hr 03/20/18 03/20/18 03/20/18 03:25 07:32 10:57 Temperature 97.8 F 96.6 F 97.3 F Pulse Rate 96 102 86 Respiratory 20 20 20 Rate Blood Pressure 147/73 137/74 139/52 (mmHg) O2 Sat by Pulse 100 100 100 Oximetry Oxygen Devices in Use Now: Tracheostomy Collar Appearance: 87 yo M in nAD, aAOx3, nonverbal due to trach, uses writing board Eyes: No Scleral Icterus, PERRLA Ears/Nose/Mouth/Throat: NL Teeth, Lips, Gums, Mucous Membranes Moist Neck: NL Appearance and Movements; NL JVP, - - trach in place Respiratory: Symmetrical Chest Expansion and Respiratory Effort, - - decreased breath sound at bases Cardiovascular: - - irrregular Abdominal: NL Sounds; No Tenderness; No Distention, No Hepatosplenomegaly Lymphatic: No Cervical Adenopathy Extremities: No Clubbing, Cyanosis, - - diffuse edema markedly improved in b/l UE's, LE's still with +1 pitting edema b/l Skin: No Nodules or Sclerosis Neurological: Alert and Oriented x 3, NL Muscle Strength and Tone - Nutrition: Malnutrition Diagnosis/Plan Malnutrition Assessment by Registered Dietitian: Malnutrition Assessment Clinical Characteristics Acute,Moderate Malnutrition Assessment: - 6.1% wt loss in past one month Criteria - mild temporal muscle wasting - intake likely <75% EEE x 7 days Malnutrition Assessment: 1. follow PRODUCT MARKETER re-evaluation of swallowing Interventions function; NPO at this time 2. follow for potential need for PEG placement 3. offer and begin po supplements when pt ready for some level of po intake Malnutrition Assessment: Goals 1. when safe for po intake, pt will tolerate least-restrictive diet texture without evidence of swallowing difficulty or aspiration 2. adequate po intake to maintain present wt and hydration status 3. achieve and maintain serum electrolytes within normal ranges 4. achieve and maintain regulation of bowel pattern; no constipation (or diarrhea) Result Diagrams: 03/19/18 05:00 03/20/18 05:05 Additional Lab and Data: Laboratory Results - last 24 hr 03/14/18 03/14/18 03/14/18 06:47 10:44 11:38 WBC RBC Hgb Hct MCV MCH MCHC RDW Plt Count MPV Neut % (Auto) Lymph % (Auto) [place] % (Auto) Eos % (Auto) Baso % (Auto) Absolute Neuts (auto) Absolute Lymphs (auto) Absolute Monos (auto) Absolute Eos (auto) Absolute Basos (auto) Absolute Nucleated RBC Nucleated RBC % Sodium Potassium Chloride Carbon Dioxide Anion Gap BUN Creatinine Est GFR ( Amer) Est GFR (Non-Af Amer) BUN/Creatinine Ratio Glucose POC Glucose (mg/dL) 441 H* Glucose Meter Confirm 160 H Calcium Magnesium 2.1 03/14/18 03/14/18 03/15/18 17:44 23:55 05:40 WBC RBC Hgb Hct MCV MCH MCHC RDW Plt Count MPV Neut % (Auto) Lymph % (Auto) [place] % (Auto) Eos % (Auto) Baso % (Auto) Absolute Neuts (auto) Absolute Lymphs (auto) Absolute Monos (auto) Absolute Eos (auto) Absolute Basos (auto) Absolute Nucleated RBC Nucleated RBC % Sodium Potassium Chloride Carbon Dioxide Anion Gap BUN Creatinine Est GFR ( Amer) Est GFR (Non-Af Amer) BUN/Creatinine Ratio Glucose POC Glucose (mg/dL) 160 H 143 H 131 H Glucose Meter Confirm Calcium Magnesium 03/15/18 03/15/18 06:34 06:34 WBC 13.2 H RBC 3.86 L Hgb 10.9 L Hct 33 L MCV 85 MCH 28 MCHC 33 RDW 16 H Plt Count 296 MPV 7.9 Neut % (Auto) 89.4 Lymph % (Auto) 4.4 [place] % (Auto) 4.5 Eos % (Auto) 0.7 Baso % (Auto) 1.0 Absolute Neuts (auto) 11.8 H Absolute Lymphs (auto) 0.6 L Absolute Monos (auto) 0.6 Absolute Eos (auto) 0.1 Absolute Basos (auto) 0.1 Absolute Nucleated RBC 0 Nucleated RBC % 0.1 Sodium 142 Potassium 4.3 Chloride 112 H Carbon Dioxide 24 Anion Gap 6 BUN 22 Creatinine 1.21 H Est GFR ( Amer) 68.3 Est GFR (Non-Af Amer) 56.5 BUN/Creatinine Ratio 18.2 Glucose 102 H POC Glucose (mg/dL) Glucose Meter Confirm Calcium 8.7 Magnesium 2.1 Microbiology and Other Data: Microbiology 03/01/18 14:50 Nasal Screen MRSA (PCR) - Final Nasal Mrsa Not Detected Assess/Plan/Problems-Billing Assessment: Mr. 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 - Patient Problems (1) Laryngeal cancer Comment: - Recurrent, s/p resection of ca 09/01/16; s/p tracheostomy 03/01/18; s/ p total laryngectomy 03/07/[address] Stubbs - Management per ENT. On metronidazole post op - Dr. Stubbs, would prefer to not have PEG placed; plan to continue nasoenteral feeds and attempt PO feeds within upcoming 2 weeks under guidance and direction of ENT. NG plugged and exchanged ob 03/16/18. currently on TF at goal 60 ml/hr (2) Malnutrition Comment: - Acute, moderate; see assessment by Hand Ornament Maker - Continue tube feedings based on Hand Ornament Maker recommendations (3) Tracheostomy in place Comment: - On 03/01/18 - Trach care as needed (4) Ventricular tachycardia Comment: -pt had 15 beats of v. tach on 03/18/18 night - Patient had 53 beat run of VT overnight on 03/15/18 - Cardiology consulted and case d/w. Off Amio gtt , on 03/17/18 switched to PO amiodarone 400 mg BID. - Echo revealed EF of 35% to 40% - Pt likely had ACS post op as evidenced by EKG changes , lower EF and wall motion abn on Echo suggesting LAD as culprit. Will treat medically for now with ASA/Plavix. will need a Life Vest. (5) Atrial fibrillation Comment: chronic, in the past pt refused anticuagulation (6) CAD (coronary artery disease) Comment: as discussed above, lialey ACS post op (7) Diabetes mellitus Comment: Finger sticks Q6hr Cont glargine 5 units (8) HTN (hypertension) Comment: controlled (9) Thyroid function study abnormality Comment: TSH and free T4 high, but T3 low. 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 Recommend repeat testing in 2 weeks (10) CKD (chronic kidney disease) stage 3, GFR 30-59 ml/min Comment: with creat at baseline today creat baseline 1.8 (11) Acute systolic CHF (congestive heart failure) Comment: with EF 35% weight started decreasing and edema is improving. cont metolazone one dose today in AM and Lasix IV. due to pt's malnutrition it is difficult to diurese with low overall intravascular oncotic pressure. (12) DVT prophylaxis Comment: HSQ Status and Disposition: Disposition planning pending definitive feeding plan and recommendations from Dr. Stubbs. Tentative plan for swing status once medically stable
[2018-03-20] MEDS: Morphine 4 MG/ML VIAL (1 ml) 4 MG/ML VIAL IV PRN ×2 (12:10→18:25)
[2018-03-20] MEDS: Insulin GLARGINE(*) 1 UNITS UNIT SUBCUT SCH (16:00)
[2018-03-20] MEDS: Atorvastatin* 40 MG TAB NG TUBE SCH (20:56)
[2018-03-21 04:58] LABS: Calcium 8.4 mg/dL (8.6-10.3); EGFR African American 48.8 (>60); EGFR Non-African American 40.3 (>60); Magnesium 1.8 mg/dL (1.9-2.7); Phosphorus 3.4 mg/dL (2.5-5.0); Potassium 3.4 mmol/L (3.5-5.0)
[2018-03-21] MEDS: Insulin LISPRO* 1 UNITS UNIT SUBCUT SCH ×4 (05:06→20:59)
[2018-03-21] MEDS: Heparin VIAL(*) 5000 UNITS/ML VIAL (FIVE THOUSAND) SUBCUT SCH ×3 (05:30→20:59)
[2018-03-21] MEDS ORDERED: Magnesium Sulfate 1 GM IV* 1 GM/100 ML BAG IV ONE (07:35)
[2018-03-21] MEDS: metroNIDAZOLE IV 500 MG/100ML* 500 MG/100 ML BAG IVPB SCH (07:54)
--- NOTE | 2018-03-21 09:57 | PN ---
PROGRESS NOTE: DATE OF SERVICE: 03/21/2018 SUBJECTIVE: The patient is now 2 weeks postop from his total laryngectomy. He has done well from the surgical standpoint. He had some cardiac problems, for which he is now on telemetry and it is time to see if we can get him to be able to swallow and eat on his own. OBJECTIVE: On physical examination, the laryngectomy tube was pulled back just a little too much so I was able to hear some of his breathing. We took that out , washed it, cleaned out some scabbing around the stoma. I removed all of his yecenia and reinserted the laryngectomy tube and he was doing well after that. The stitch holding the salivary bypass tube was cut. The tie holding the NG tube was cut and the NG tube was removed and then the salivary bypass tube was grasped in the mouth and pulled out and removed. I had him drink some water and from that he seemed to be doing well. ASSESSMENT: Patient appears to be well without any esophagocutaneous fistula formation, but he has a barium swallow scheduled for today to confirm that and I will follow up with that. Assuming he is able to eat, he is stable for discharge from my standpoint. If he does have a fistula, we will have to figure out how to manage that. [id number]/[facility] #: [id number] VALENTINE
--- NOTE | 2018-03-21 12:55 | PN ---
Subjective Date of Service: 03/21/18 Interval History: Pt's NG puled out. Passed swallow eval and was placed on soft diet Family History: Unchanged from Admission Social History: Unchanged from Admission Past Medical History: Unchanged from Admission Objective Active Medications: Acetaminophen (Tylenol Adult Liq*) 650 mg PEG TUBE Q4H PRN PRN Reason: PAIN Last Admin: 03/14/18 08:00 Dose: 650 mg Al Hydrox/Mg Hydrox/Simethicone (Maalox Plus*) 30 ml NG TUBE Q6H PRN PRN Reason: DYSPEPSIA Last Admin: 03/15/18 10:16 Dose: 30 ml Amiodarone HCl (Cordarone Tab*) 400 mg PO BID [facility] Aspirin (Aspirin 81 Mg Chew Tab*) 81 mg PO DAILY [facility] Atorvastatin Calcium (Lipitor*) 40 mg NG TUBE BEDTIME DEBRA Last Admin: 03/20/18 20:56 Dose: 40 mg Clopidogrel Bisulfate (Plavix Tab*) 75 mg PO DAILY [facility] Furosemide (Lasix Iv*) 40 mg IV DAILY [facility] Last Admin: 03/20/18 09:33 Dose: 40 mg Heparin Sodium (Porcine) (Heparin Vial(*)) 5,000 units SUBCUT Q8HR [facility] Last Admin: 03/21/18 05:30 Dose: 5,000 units Heparin Sodium (Porcine) (Heparin Flush Picc/Ml/Cvc(*)) 1 - 3 ml FLUSH 0600, 1800 [facility]; Protocol Last Admin: 03/21/18 04:52 Dose: 1 ml Hydralazine HCl (Apresoline Iv*) 10 mg IV SLOW PU Q6H PRN PRN Reason: SBP>165, HOLD FOR HR<60 Last Admin: 03/15/18 07:49 Dose: 10 mg Insulin Glargine (Lantus(*)) 5 units SUBCUT Q24H DEBRA Last Admin: 03/20/18 16:00 Dose: 5 units Insulin Human Lispro (Humalog*) 0 units SUBCUT Q6HR [facility]; Protocol Last Admin: 03/21/18 05:06 Dose: Not Given Metoprolol Tartrate (Lopressor Tab*) 12.5 mg PO Q12HR [facility] Last Admin: 03/20/18 20:57 Dose: 12.5 mg Morphine Sulfate (Morphine Vial*) 1 mg IV Q2H PRN PRN Reason: PAIN Last Admin: 03/20/18 18:25 Dose: 1 mg Ondansetron HCl (Zofran Inj*) 4 mg IV Q6H PRN PRN Reason: NAUSEA/VOMITING Last Admin: 03/17/18 12:01 Dose: 4 mg Oxycodone HCl (Roxycodone Tab*) 10 mg PO Q4H PRN PRN Reason: SEVERE PAIN Oxycodone HCl (Roxycodone Tab*) 5 mg PO Q4H PRN PRN Reason: PAIN - MODERATE Vital Signs - 8 hr 03/21/18 03/21/18 08:00 08:03 Temperature 97.9 F Pulse Rate 45 Respiratory 18 16 Rate Blood Pressure 148/58 (mmHg) O2 Sat by Pulse 100 Oximetry Oxygen Devices in Use Now: Tracheostomy Collar Appearance: 87 yo M in nAD, AAOx3, nonverbal due to laryngectomy, using writting board Eyes: No Scleral Icterus, PERRLA Ears/Nose/Mouth/Throat: NL Teeth, Lips, Gums, Mucous Membranes Moist Neck: NL Appearance and Movements; NL JVP, - - trach with trach collar in place Respiratory: Symmetrical Chest Expansion and Respiratory Effort, Clear to Auscultation Cardiovascular: NL Sounds; No Murmurs; No JVD, RRR Abdominal: NL Sounds; No Tenderness; No Distention, No Hepatosplenomegaly Lymphatic: No Cervical Adenopathy Extremities: No Clubbing, Cyanosis, - - LE's edema improving Skin: No Nodules or Sclerosis Neurological: Alert and Oriented x 3, NL Muscle Strength and Tone - Nutrition: Malnutrition Diagnosis/Plan Malnutrition Assessment by Registered Dietitian: Malnutrition Assessment Clinical Characteristics Acute,Moderate Malnutrition Assessment: - 6.1% wt loss in past one month Criteria - mild temporal muscle wasting - intake likely <75% EEE x 7 days Malnutrition Assessment: 1. follow JOURNEYMAN PRESS OPERATOR re-evaluation of swallowing Interventions function; NPO at this time 2. follow for potential need for PEG placement 3. offer and begin po supplements when pt ready for some level of po intake Malnutrition Assessment: Goals 1. when safe for po intake, pt will tolerate least-restrictive diet texture without evidence of swallowing difficulty or aspiration 2. adequate po intake to maintain present wt and hydration status 3. achieve and maintain serum electrolytes within normal ranges 4. achieve and maintain regulation of bowel pattern; no constipation (or diarrhea) Result Diagrams: 03/19/18 05:00 03/21/18 04:35 Additional Lab and Data: Laboratory Results - last 24 hr 03/14/18 03/14/18 03/14/18 06:47 10:44 11:38 WBC RBC Hgb Hct MCV MCH MCHC RDW Plt Count MPV Neut % (Auto) Lymph % (Auto) [place] % (Auto) Eos % (Auto) Baso % (Auto) Absolute Neuts (auto) Absolute Lymphs (auto) Absolute Monos (auto) Absolute Eos (auto) Absolute Basos (auto) Absolute Nucleated RBC Nucleated RBC % Sodium Potassium Chloride Carbon Dioxide Anion Gap BUN Creatinine Est GFR ( Amer) Est GFR (Non-Af Amer) BUN/Creatinine Ratio Glucose POC Glucose (mg/dL) 441 H* Glucose Meter Confirm 160 H Calcium Magnesium 2.1 03/14/18 03/14/18 03/15/18 17:44 23:55 05:40 WBC RBC Hgb Hct MCV MCH MCHC RDW Plt Count MPV Neut % (Auto) Lymph % (Auto) [place] % (Auto) Eos % (Auto) Baso % (Auto) Absolute Neuts (auto) Absolute Lymphs (auto) Absolute Monos (auto) Absolute Eos (auto) Absolute Basos (auto) Absolute Nucleated RBC Nucleated RBC % Sodium Potassium Chloride Carbon Dioxide Anion Gap BUN Creatinine Est GFR ( Amer) Est GFR (Non-Af Amer) BUN/Creatinine Ratio Glucose POC Glucose (mg/dL) 160 H 143 H 131 H Glucose Meter Confirm Calcium Magnesium 03/15/18 03/15/18 06:34 06:34 WBC 13.2 H RBC 3.86 L Hgb 10.9 L Hct 33 L MCV 85 MCH 28 MCHC 33 RDW 16 H Plt Count 296 MPV 7.9 Neut % (Auto) 89.4 Lymph % (Auto) 4.4 [place] % (Auto) 4.5 Eos % (Auto) 0.7 Baso % (Auto) 1.0 Absolute Neuts (auto) 11.8 H Absolute Lymphs (auto) 0.6 L Absolute Monos (auto) 0.6 Absolute Eos (auto) 0.1 Absolute Basos (auto) 0.1 Absolute Nucleated RBC 0 Nucleated RBC % 0.1 Sodium 142 Potassium 4.3 Chloride 112 H Carbon Dioxide 24 Anion Gap 6 BUN 22 Creatinine 1.21 H Est GFR ( Amer) 68.3 Est GFR (Non-Af Amer) 56.5 BUN/Creatinine Ratio 18.2 Glucose 102 H POC Glucose (mg/dL) Glucose Meter Confirm Calcium 8.7 Magnesium 2.1 Microbiology and Other Data: Microbiology 03/01/18 14:50 Nasal Screen MRSA (PCR) - Final Nasal Mrsa Not Detected Assess/Plan/Problems-Billing Assessment: Mr. 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 - Patient Problems (1) Laryngeal cancer Comment: - Recurrent, s/p resection of ca 09/01/16; s/p tracheostomy 03/01/18; s/ p total laryngectomy 03/07/[address] Stubbs - NG pulled today. OK for soft diet and go home as per ENT. (2) Malnutrition Comment: - Acute, moderate; see assessment by Gas Turbine Assembler - PO diet restarted 03/21/18 (3) Tracheostomy in place Comment: - On 03/01/18 - Trach care as needed (4) Ventricular tachycardia Comment: -pt had 15 beats of v. tach on 03/18/18 night - Patient had 53 beat run of VT overnight on 03/15/18 - Cardiology consulted and case d/w. Off Amio gtt , on 03/17/18 switched to PO amiodarone 400 mg BID. - Echo revealed EF of 35% to 40% - Pt likely had ACS post op as evidenced by EKG changes , lower EF and wall motion abn on Echo suggesting LAD as culprit. Medical tx with ASA/Plavix. will need a Life Vest. (5) Atrial fibrillation Comment: chronic, in the past pt refused anticoagulation (6) CAD (coronary artery disease) Comment: as discussed above, lialey ACS post op (7) Diabetes mellitus Comment: Finger sticks ACHS Cont glargine 5 units (8) HTN (hypertension) Comment: controlled (9) Thyroid function study abnormality Comment: TSH and free T4 high, but T3 low. 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 Recommend repeat testing in 2 weeks (10) CKD (chronic kidney disease) stage 3, GFR 30-59 ml/min Comment: with creat at baseline today creat baseline 1.8 (11) Acute systolic CHF (congestive heart failure) Comment: with EF 35% weight started decreasing and edema is improving. cont metolazone one dose today in AM and Lasix IV. due to pt's malnutrition it is difficult to diurese with low overall intravascular oncotic pressure. (12) DVT prophylaxis Comment: HSQ Status and Disposition: Plan to d/c home once lifevest is arranged
[2018-03-21] MEDS: Furosemide IV* 10 MG/ML VIAL (40 MG) IV SCH (14:34)
[2018-03-21] MEDS: Metoprolol Tartrate TAB* 25 MG PO SCH ×2 (14:34→20:56)
[2018-03-21] MEDS: Insulin GLARGINE(*) 1 UNITS UNIT SUBCUT SCH (14:34)
[2018-03-21] MEDS: Amiodarone TAB* 400 MG PO SCH (15:12)
[2018-03-21] MEDS: Clopidogrel TAB* 75 MG PO SCH (15:13)
[2018-03-21] MEDS: KCL 20 MEQ/100 ML IVPREMIX* 20 MEQ/100 ML BAG IV SCH ×3 (15:13→18:11)
[2018-03-21] MEDS: Aspirin 81 mg CHEW TAB* 81 MG TAB.CHEW PO SCH (15:13)
[2018-03-21] MEDS ORDERED: KCL 20 MEQ/100 ML IVPREMIX* 40 MEQ/200 ML BAG ONE (15:16)
[2018-03-21] MEDS: Clopidogrel TAB* 75 MG SCH (15:21)
[2018-03-21] MEDS: Pantoprazole IV* 40 MG IV SCH (15:21)
[2018-03-21] MEDS: Amiodarone TAB* 400 MG NG TUBE SCH (15:22)
[2018-03-21] MEDS: Aspirin 81 mg CHEW TAB* 81 MG TAB.CHEW NG TUBE SCH (15:22)
[2018-03-21] MEDS: Atorvastatin* 40 MG TAB NG TUBE SCH (20:56)
[2018-03-22] MEDS: Heparin VIAL(*) 5000 UNITS/ML VIAL (FIVE THOUSAND) SUBCUT SCH ×3 (05:17→21:33)
[2018-03-22 05:41] LABS: Calcium 8.7 mg/dL (8.6-10.3); EGFR African American 41.6 (>60); EGFR Non-African American 34.4 (>60); Magnesium 1.7 mg/dL (1.9-2.7); Potassium 3.5 mmol/L (3.5-5.0)
[2018-03-22] MEDS: Insulin LISPRO* 1 UNITS UNIT SUBCUT SCH ×4 (07:59→21:33)
[2018-03-22] MEDS: Clopidogrel TAB* 75 MG PO SCH (08:07)
[2018-03-22] MEDS: Amiodarone TAB* 400 MG PO SCH ×2 (08:07→21:30)
[2018-03-22] MEDS: Metoprolol Tartrate TAB* 25 MG PO SCH ×2 (08:09→21:31)
[2018-03-22] MEDS: Aspirin 81 mg CHEW TAB* 81 MG TAB.CHEW PO SCH (08:09)
[2018-03-22] MEDS: Furosemide IV* 10 MG/ML VIAL (40 MG) IV SCH (08:10)
[2018-03-22] MEDS ORDERED: Magnesium Sulfate 2 GM IV* 2 GM/50 ML BAG IVPB ONE (08:47)
--- NOTE | 2018-03-22 09:27 | PN ---
PROGRESS NOTE: DATE OF VISIT: 03/22/18 The patient had his barium swallow yesterday and he did well with it as a typical picture with post l aryngectomy with little outpocketing where the laryngectomy was done, but there was not any fistula. He has been having a soft diet. When I walk in today, he is eating some eggs and drinking coffee. I observed him eating and there is no leakage. He does have a little blood around his stoma today th at has not been there. It looks like the posterior suture line opened up a little bit after the stap les were removed. Again, after the yecenia removed and there might be where the blood is coming from . With respiratory therapy we cleaned this up and applied some antibiotic ointments. ASSESSMENT: Patient seems to be doing well. At this point, I am not concerned about his slight woun d dehiscence and not unsuspecting at this point. We will heal secondarily and he can continue his di et. [id number]/[facility] #: [id number]
--- NOTE | 2018-03-22 14:56 | PN ---
Subjective Date of Service: 03/22/18 Interval History: Pt has had scant bloody secretions since Dr. Stubbs removed stitches near his stoma. Breathing "fine" started developing diarrhea in PM, no abd pain Family History: Unchanged from Admission Social History: Unchanged from Admission Past Medical History: Unchanged from Admission Objective Active Medications: Acetaminophen (Tylenol Adult Liq*) 650 mg PEG TUBE Q4H PRN PRN Reason: PAIN Last Admin: 03/14/18 08:00 Dose: 650 mg Al Hydrox/Mg Hydrox/Simethicone (Maalox Plus*) 30 ml NG TUBE Q6H PRN PRN Reason: DYSPEPSIA Last Admin: 03/15/18 10:16 Dose: 30 ml Amiodarone HCl (Cordarone Tab*) 400 mg PO 0900,2100 [facility] Last Admin: 03/22/18 08:07 Dose: 400 mg Aspirin (Aspirin 81 Mg Chew Tab*) 81 mg PO DAILY [facility] Last Admin: 03/22/18 08:09 Dose: 81 mg Atorvastatin Calcium (Lipitor*) 40 mg NG TUBE BEDTIME [facility] Last Admin: 03/21/18 20:56 Dose: 40 mg Clopidogrel Bisulfate (Plavix Tab*) 75 mg PO DAILY [facility] Last Admin: 03/22/18 08:07 Dose: 75 mg Heparin Sodium (Porcine) (Heparin Vial(*)) 5,000 units SUBCUT Q8HR [facility] Last Admin: 03/22/18 05:17 Dose: 5,000 units Heparin Sodium (Porcine) (Heparin Flush Picc/Ml/Cvc(*)) 1 - 3 ml FLUSH 0600, 1800 [facility]; Protocol Last Admin: 03/22/18 05:18 Dose: 1 ml Hydralazine HCl (Apresoline Iv*) 10 mg IV SLOW PU Q6H PRN PRN Reason: SBP>165, HOLD FOR HR<60 Last Admin: 03/15/18 07:49 Dose: 10 mg Insulin Glargine (Lantus(*)) 5 units SUBCUT Q24H [facility] Last Admin: 03/21/18 14:34 Dose: 5 units Insulin Human Lispro (Humalog*) 0 units SUBCUT ACHS [facility]; Protocol Last Admin: 03/22/18 11:35 Dose: 3 units Metoprolol Tartrate (Lopressor Tab*) 12.5 mg PO Q12HR [facility] Last Admin: 03/22/18 08:09 Dose: 12.5 mg Morphine Sulfate (Morphine Vial*) 1 mg IV Q2H PRN PRN Reason: PAIN Last Admin: 03/20/18 18:25 Dose: 1 mg Ondansetron HCl (Zofran Inj*) 4 mg IV Q6H PRN PRN Reason: NAUSEA/VOMITING Last Admin: 03/17/18 12:01 Dose: 4 mg Oxycodone HCl (Roxycodone Tab*) 10 mg PO Q4H PRN PRN Reason: SEVERE PAIN Oxycodone HCl (Roxycodone Tab*) 5 mg PO Q4H PRN PRN Reason: PAIN - MODERATE Vital Signs - 8 hr 03/22/18 03/22/18 03/22/18 07:50 08:00 08:08 Temperature 97.9 F Pulse Rate 65 Respiratory 22 20 Rate Blood Pressure 163/67 (mmHg) O2 Sat by Pulse 100 Oximetry 03/22/18 11:21 Temperature 97.9 F Pulse Rate 113 Respiratory 18 Rate Blood Pressure 138/46 (mmHg) O2 Sat by Pulse 99 Oximetry Oxygen Devices in Use Now: Laryngeal Mask Airway (LMA) Appearance: 87 yo M in nAD, aAOx3 Eyes: No Scleral Icterus, PERRLA Ears/Nose/Mouth/Throat: NL Teeth, Lips, Gums, Mucous Membranes Moist, - - tracheostomy in place Neck: NL Appearance and Movements; NL JVP, Trachea Midline Respiratory: Symmetrical Chest Expansion and Respiratory Effort, - - crackles at b/l bases Cardiovascular: NL Sounds; No Murmurs; No JVD, - - iregular Abdominal: NL Sounds; No Tenderness; No Distention, No Hepatosplenomegaly Lymphatic: No Cervical Adenopathy Extremities: - - +1 pitting edema b/l LE's-markedly imprved from prior Skin: No Nodules or Sclerosis, - - stoma in neck healed well Neurological: Alert and Oriented x 3, NL Muscle Strength and Tone, - - nonverbal due to laryngectomy - Nutrition: Malnutrition Diagnosis/Plan Malnutrition Assessment by Registered Dietitian: Malnutrition Assessment Clinical Characteristics Acute,Moderate Malnutrition Assessment: - 6.1% wt loss in past one month Criteria - mild temporal muscle wasting - intake likely <75% EEE x 7 days Malnutrition Assessment: 1. follow PLUGGER re-evaluation of swallowing Interventions function; NPO at this time 2. follow for potential need for PEG placement 3. offer and begin po supplements when pt ready for some level of po intake Malnutrition Assessment: Goals 1. when safe for po intake, pt will tolerate least-restrictive diet texture without evidence of swallowing difficulty or aspiration 2. adequate po intake to maintain present wt and hydration status 3. achieve and maintain serum electrolytes within normal ranges 4. achieve and maintain regulation of bowel pattern; no constipation (or diarrhea) Result Diagrams: 03/19/18 05:00 03/22/18 05:15 Additional Lab and Data: Laboratory Results - last 24 hr 03/14/18 03/14/18 03/14/18 06:47 10:44 11:38 WBC RBC Hgb Hct MCV MCH MCHC RDW Plt Count MPV Neut % (Auto) Lymph % (Auto) [place] % (Auto) Eos % (Auto) Baso % (Auto) Absolute Neuts (auto) Absolute Lymphs (auto) Absolute Monos (auto) Absolute Eos (auto) Absolute Basos (auto) Absolute Nucleated RBC Nucleated RBC % Sodium Potassium Chloride Carbon Dioxide Anion Gap BUN Creatinine Est GFR ( Amer) Est GFR (Non-Af Amer) BUN/Creatinine Ratio Glucose POC Glucose (mg/dL) 441 H* Glucose Meter Confirm 160 H Calcium Magnesium 2.1 03/14/18 03/14/18 03/15/18 17:44 23:55 05:40 WBC RBC Hgb Hct MCV MCH MCHC RDW Plt Count MPV Neut % (Auto) Lymph % (Auto) [place] % (Auto) Eos % (Auto) Baso % (Auto) Absolute Neuts (auto) Absolute Lymphs (auto) Absolute Monos (auto) Absolute Eos (auto) Absolute Basos (auto) Absolute Nucleated RBC Nucleated RBC % Sodium Potassium Chloride Carbon Dioxide Anion Gap BUN Creatinine Est GFR ( Amer) Est GFR (Non-Af Amer) BUN/Creatinine Ratio Glucose POC Glucose (mg/dL) 160 H 143 H 131 H Glucose Meter Confirm Calcium Magnesium 03/15/18 03/15/18 06:34 06:34 WBC 13.2 H RBC 3.86 L Hgb 10.9 L Hct 33 L MCV 85 MCH 28 MCHC 33 RDW 16 H Plt Count 296 MPV 7.9 Neut % (Auto) 89.4 Lymph % (Auto) 4.4 [place] % (Auto) 4.5 Eos % (Auto) 0.7 Baso % (Auto) 1.0 Absolute Neuts (auto) 11.8 H Absolute Lymphs (auto) 0.6 L Absolute Monos (auto) 0.6 Absolute Eos (auto) 0.1 Absolute Basos (auto) 0.1 Absolute Nucleated RBC 0 Nucleated RBC % 0.1 Sodium 142 Potassium 4.3 Chloride 112 H Carbon Dioxide 24 Anion Gap 6 BUN 22 Creatinine 1.21 H Est GFR ( Amer) 68.3 Est GFR (Non-Af Amer) 56.5 BUN/Creatinine Ratio 18.2 Glucose 102 H POC Glucose (mg/dL) Glucose Meter Confirm Calcium 8.7 Magnesium 2.1 Microbiology and Other Data: Microbiology 03/01/18 14:50 Nasal Screen MRSA (PCR) - Final Nasal Mrsa Not Detected Assess/Plan/Problems-Billing Assessment: Mr. 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 - Patient Problems (1) Laryngeal cancer Comment: - Recurrent, s/p resection of ca 09/01/16; s/p tracheostomy 03/01/18; s/ p total laryngectomy 03/07/[address] Stubbs - NG pulled 03/21/18. OK for soft diet and go home as per ENT, but pt needs to learn how to care for his stoma (2) Malnutrition Comment: - Acute, moderate; see assessment by Aligning Checker - PO diet restarted 03/21/18 (3) Tracheostomy in place Comment: - On 03/01/18 - Trach care as needed (4) Ventricular tachycardia Comment: -pt had 15 beats of v. tach on 03/18/18 night - Patient had 53 beat run of VT overnight on 03/15/18 - Cardiology consulted and case d/w. Off Amio gtt , on 03/17/18 switched to PO amiodarone 400 mg BID. We will need to call cardiology service prior to discharge to discuss amiodarone dose at d/c - Echo revealed EF of 35% to 40% - Pt likely had ACS post op as evidenced by EKG changes , lower EF and wall motion abn on Echo suggesting LAD as culprit. Medical tx with ASA/Plavix. Life Vest being arranged by cardiology service in conjunction with CM. (5) Atrial fibrillation Comment: chronic, in the past pt refused anticoagulation (6) CAD (coronary artery disease) Comment: as discussed above, pam ACS post op (7) Diabetes mellitus Comment: Finger sticks ACHS Cont glargine 5 units (8) HTN (hypertension) Comment: controlled (9) Thyroid function study abnormality Comment: TSH and free T4 high, but T3 low. 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 Recommend repeat testing in 2 weeks (10) CKD (chronic kidney disease) stage 3, GFR 30-59 ml/min Comment: with creat at baseline today, but steadily increasing . Will d/c IV Lasix after today's dose and monitor creat baseline 1.8 (11) Acute systolic CHF (congestive heart failure) Comment: with EF 35% weight started decreasing and edema is improving. Today creat at 1.89. will hold off diuresis for a day and monitor renal function due to pt's malnutrition it is difficult to diurese with low overall intravascular oncotic pressure. (12) DVT prophylaxis Comment: HSQ Status and Disposition: Plan to d/c home once lifevest is arranged and trach supplies are in place + pt is taught about how to care for his stoma
[2018-03-22] MEDS ORDERED: Lactobacillus Acidophilus* 1 TAB PO ONE (14:58)
[2018-03-22] MEDS: Insulin GLARGINE(*) 1 UNITS UNIT SUBCUT SCH (15:22)
[2018-03-22] MEDS: Lactobacillus Acidophilus* 1 TAB PO SCH (21:30)
[2018-03-22] MEDS: Atorvastatin* 40 MG TAB NG TUBE SCH (21:31)
--- NOTE | 2018-03-23 00:58 | PN ---
Progress Note - Progress Note Date of Service: 03/23/18 Note: Paged for 3 second pause, afib - patient asymptomatic. Patient on amiodarone.
[2018-03-23] MEDS: Heparin VIAL(*) 5000 UNITS/ML VIAL (FIVE THOUSAND) SUBCUT SCH ×3 (05:37→21:56)
[2018-03-23 05:46] LABS: ABS Basophils 0.1 10^3/ul (0-0.2); ABS Eosinophils 0.1 10^3/ul (0-0.6); ABS Lymphocytes 0.6 10^3/ul (1.0-4.8); ABS Monocytes 0.9 10^3/ul (0-0.8); ABS Neutrophils 7.9 10^3/ul (1.5-7.7); ABS Nucleated RBC 0 10^3/ul; Eosinophil % 1.3 %; Hematocrit 29 % (42-52); Hemoglobin 9.8 g/dl (14.0-18.0); Lymphocyte % 6.5 %; Mean Corpuscular HGB Conc 34 g/dl (31-36); Mean Corpuscular Hemoglobin 29 pg (27-31); Mean Corpuscular Volume 85 fL (80-94); Mean Platelet Volume 7.3 fL (7.4-10.4); Nucleated Red Blood Cells % 0; Platelet Count 320 10^3/ul (150-450); Red Blood Count 3.42 10^6/ul (4.00-5.40); Red Cell Distribution Width 17 % (10.5-15); White Blood Count 9.6 10^3/ul (3.5-10.8)
[2018-03-23 06:22] LABS: BUN/Creatinine Ratio 21.8 (8-20); Calcium 8.4 mg/dL (8.6-10.3); EGFR African American 38.9 (>60); EGFR Non-African American 32.2 (>60); Magnesium 1.9 mg/dL (1.9-2.7); Potassium 3.1 mmol/L (3.5-5.0)
[2018-03-23] MEDS: Insulin LISPRO* 1 UNITS UNIT SUBCUT SCH ×4 (09:31→21:56)
[2018-03-23] MEDS: Clopidogrel TAB* 75 MG PO SCH (10:01)
[2018-03-23] MEDS: Aspirin 81 mg CHEW TAB* 81 MG TAB.CHEW PO SCH (10:01)
[2018-03-23] MEDS: Lactobacillus Acidophilus* 1 TAB PO SCH ×2 (10:01→21:54)
[2018-03-23] MEDS: Metoprolol Tartrate TAB* 25 MG PO SCH ×2 (10:02→21:55)
[2018-03-23] MEDS: Amiodarone TAB* 400 MG PO SCH ×2 (10:02→21:54)
[2018-03-23] MEDS ORDERED: Potassium Chloride LIQUID* 20 MEQ PACKET PO ONE (13:04)
--- NOTE | 2018-03-23 13:10 | PN ---
Subjective Date of Service: 03/23/18 Interval History: Pt is feeling well. He denies any pain at the trach site. He states his breathing is comfortable. He has not coughed up any blood today. He understands that supplies have to be ordered for the trach and that is likely to take until Tuesday to get in. Objective Active Medications: Acetaminophen (Tylenol Adult Liq*) 650 mg PEG TUBE Q4H PRN PRN Reason: PAIN Last Admin: 03/14/18 08:00 Dose: 650 mg Al Hydrox/Mg Hydrox/Simethicone (Maalox Plus*) 30 ml NG TUBE Q6H PRN PRN Reason: DYSPEPSIA Last Admin: 03/15/18 10:16 Dose: 30 ml Amiodarone HCl (Cordarone Tab*) 400 mg PO 0900,2100 [facility] Last Admin: 03/23/18 10:02 Dose: 400 mg Aspirin (Aspirin 81 Mg Chew Tab*) 81 mg PO DAILY [facility] Last Admin: 03/23/18 10:01 Dose: 81 mg Atorvastatin Calcium (Lipitor*) 40 mg NG TUBE BEDTIME [facility] Last Admin: 03/22/18 21:31 Dose: 40 mg Clopidogrel Bisulfate (Plavix Tab*) 75 mg PO DAILY [facility] Last Admin: 03/23/18 10:01 Dose: 75 mg Heparin Sodium (Porcine) (Heparin Vial(*)) 5,000 units SUBCUT Q8HR [facility] Last Admin: 03/23/18 05:37 Dose: 5,000 units Heparin Sodium (Porcine) (Heparin Flush Picc/Ml/Cvc(*)) 1 - 3 ml FLUSH 0600, 1800 [facility]; Protocol Last Admin: 03/23/18 05:36 Dose: 3 ml Hydralazine HCl (Apresoline Iv*) 10 mg IV SLOW PU Q6H PRN PRN Reason: SBP>165, HOLD FOR HR<60 Last Admin: 03/15/18 07:49 Dose: 10 mg Insulin Glargine (Lantus(*)) 5 units SUBCUT Q24H [facility] Last Admin: 03/22/18 15:22 Dose: 5 units Insulin Human Lispro (Humalog*) 0 units SUBCUT ACHS [facility]; Protocol Last Admin: 03/23/18 09:31 Dose: Not Given Lactobacillus Rhamnosus (Lactobacillus Acidophilus*) 1 tab PO BID [facility] Last Admin: 03/23/18 10:01 Dose: 1 tab Metoprolol Tartrate (Lopressor Tab*) 12.5 mg PO Q12HR [facility] Last Admin: 03/23/18 10:02 Dose: 12.5 mg Ondansetron HCl (Zofran Inj*) 4 mg IV Q6H PRN PRN Reason: NAUSEA/VOMITING Last Admin: 03/17/18 12:01 Dose: 4 mg Oxycodone HCl (Roxycodone Tab*) 10 mg PO Q4H PRN PRN Reason: SEVERE PAIN Oxycodone HCl (Roxycodone Tab*) 5 mg PO Q4H PRN PRN Reason: PAIN - MODERATE Potassium Chloride (Klor-Con Liquid*) 40 meq PO ONCE ONE Stop: 03/23/18 13:05 Vital Signs - 8 hr 03/23/18 03/23/18 03/23/18 08:00 08:29 09:07 Temperature 98.4 F Pulse Rate 51 Respiratory 22 17 Rate Blood Pressure 168/92 (mmHg) O2 Sat by Pulse 100 100 Oximetry Oxygen Devices in Use Now: Tracheostomy Collar Appearance: Elderly male sitting up on the edge of the bed eating, NAD Eyes: No Scleral Icterus Ears/Nose/Mouth/Throat: Mucous Membranes Moist Neck: - - trach in place Respiratory: Symmetrical Chest Expansion and Respiratory Effort, Clear to Auscultation Cardiovascular: NL Sounds; No Murmurs; No JVD, - - irregularly irregular, NAD; 3 + LE edema Abdominal: NL Sounds; No Tenderness; No Distention Extremities: No Clubbing, Cyanosis Skin: No Nodules or Sclerosis Neurological: Alert and Oriented x 3 - Nutrition: Malnutrition Diagnosis/Plan Malnutrition Assessment by Registered Dietitian: Malnutrition Assessment Clinical Characteristics Acute,Moderate Malnutrition Assessment: - 6.1% wt loss in past one month Criteria - mild temporal muscle wasting - intake likely <75% EEE x 7 days Malnutrition Assessment: 1. follow [employer] re-evaluation of swallowing Interventions function; NPO at this time 2. follow for potential need for PEG placement 3. offer and begin po supplements when pt ready for some level of po intake Malnutrition Assessment: Goals 1. when safe for po intake, pt will tolerate least-restrictive diet texture without evidence of swallowing difficulty or aspiration 2. adequate po intake to maintain present wt and hydration status 3. achieve and maintain serum electrolytes within normal ranges 4. achieve and maintain regulation of bowel pattern; no constipation (or diarrhea) Result Diagrams: 03/23/18 05:21 03/23/18 05:21 Additional Lab and Data: Laboratory Results - last 24 hr 03/14/18 03/14/18 03/14/18 06:47 10:44 11:38 WBC RBC Hgb Hct MCV MCH MCHC RDW Plt Count MPV Neut % (Auto) Lymph % (Auto) [place] % (Auto) Eos % (Auto) Baso % (Auto) Absolute Neuts (auto) Absolute Lymphs (auto) Absolute Monos (auto) Absolute Eos (auto) Absolute Basos (auto) Absolute Nucleated RBC Nucleated RBC % Sodium Potassium Chloride Carbon Dioxide Anion Gap BUN Creatinine Est GFR ( Amer) Est GFR (Non-Af Amer) BUN/Creatinine Ratio Glucose POC Glucose (mg/dL) 441 H* Glucose Meter Confirm 160 H Calcium Magnesium 2.1 03/14/18 03/14/18 03/15/18 17:44 23:55 05:40 WBC RBC Hgb Hct MCV MCH MCHC RDW Plt Count MPV Neut % (Auto) Lymph % (Auto) [place] % (Auto) Eos % (Auto) Baso % (Auto) Absolute Neuts (auto) Absolute Lymphs (auto) Absolute Monos (auto) Absolute Eos (auto) Absolute Basos (auto) Absolute Nucleated RBC Nucleated RBC % Sodium Potassium Chloride Carbon Dioxide Anion Gap BUN Creatinine Est GFR ( Amer) Est GFR (Non-Af Amer) BUN/Creatinine Ratio Glucose POC Glucose (mg/dL) 160 H 143 H 131 H Glucose Meter Confirm Calcium Magnesium 03/15/18 03/15/18 06:34 06:34 WBC 13.2 H RBC 3.86 L Hgb 10.9 L Hct 33 L MCV 85 MCH 28 MCHC 33 RDW 16 H Plt Count 296 MPV 7.9 Neut % (Auto) 89.4 Lymph % (Auto) 4.4 [place] % (Auto) 4.5 Eos % (Auto) 0.7 Baso % (Auto) 1.0 Absolute Neuts (auto) 11.8 H Absolute Lymphs (auto) 0.6 L Absolute Monos (auto) 0.6 Absolute Eos (auto) 0.1 Absolute Basos (auto) 0.1 Absolute Nucleated RBC 0 Nucleated RBC % 0.1 Sodium 142 Potassium 4.3 Chloride 112 H Carbon Dioxide 24 Anion Gap 6 BUN 22 Creatinine 1.21 H Est GFR ( Amer) 68.3 Est GFR (Non-Af Amer) 56.5 BUN/Creatinine Ratio 18.2 Glucose 102 H POC Glucose (mg/dL) Glucose Meter Confirm Calcium 8.7 Magnesium 2.1 Microbiology and Other Data: Microbiology 03/01/18 14:50 Nasal Screen MRSA (PCR) - Final Nasal Mrsa Not Detected Assess/Plan/Problems-Billing Mr. 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 - Patient Problems (1) Ventricular tachycardia Current Visit: Yes Status: Acute Code(s): I47.2 - VENTRICULAR TACHYCARDIA SNOMED Code(s): 22091432 Comment: Pt with likely NSTEMI post op as evidenced by EKG changes and reduced EF on echo. Continue ASA, plavix. LifeVest is ordered. Will need to follow up with cardiology after discharge. (2) CAD (coronary artery disease) Current Visit: Yes Status: Chronic Code(s): I25.10 - ATHSCL HEART DISEASE OF [place] CORONARY ARTERY W/O ANG PCTRS SNOMED Code(s): 75387097 Comment: As above it is thought the patient had a [place] post op. Continue ASA, plavix, metoprolol and lipitor. (3) Laryngeal cancer Current Visit: Yes Status: Acute Comment: s/p tracheostomy and laryngectomy. Waiting for trach supplies to be delivered-likey not before . (4) Tracheostomy in place Current Visit: Yes Status: Acute Code(s): Z93.0 - TRACHEOSTOMY STATUS SNOMED Code(s): 261619072 Comment: Continue tracheostomy education. (5) Atrial fibrillation Current Visit: Yes Status: Chronic Code(s): I48.91 - UNSPECIFIED ATRIAL FIBRILLATION SNOMED Code(s): 63768070 Comment: Chronic afib. HR controlled on low dose metoprolol. Pt has refused anticoagulation previously. (6) Malnutrition Current Visit: Yes Status: Acute Code(s): E46 - UNSPECIFIED PROTEIN-CALORIE MALNUTRITION SNOMED Code(s): 14555616 Comment: Pt is eating ok on soft diet. (7) CKD (chronic kidney disease) stage 3, GFR 30-59 ml/min Current Visit: Yes Status: Acute Code(s): N18.3 - CHRONIC KIDNEY DISEASE, STAGE 3 (MODERATE) SNOMED Code(s): 296876616 Comment: Creatinine up some more today. Hold diuretics, repeat BMP. (8) Diabetes mellitus Current Visit: Yes Status: Chronic Code(s): E11.9 - TYPE 2 DIABETES MELLITUS WITHOUT COMPLICATIONS SNOMED Code(s): 24524124 Comment: Sugars have fluctuated between 59-374. It does not appear he is on any medications for DM at home. He was started on lantus 5units daily. (9) HTN (hypertension) Current Visit: Yes Status: Chronic Code(s): I10 - ESSENTIAL (PRIMARY) HYPERTENSION SNOMED Code(s): 19340444 Comment: BP is mildly up-monitor for now. (10) DVT prophylaxis Current Visit: Yes Status: Acute Code(s): YKG9011 - SNOMED Code(s): 818071691 Comment: SQ heparin (11) Full code status Current Visit: Yes Status: Acute Code(s): Z78.9 - OTHER SPECIFIED HEALTH STATUS SNOMED Code(s): 884013635 Comment: Status and Disposition: .
[2018-03-23] MEDS: Insulin GLARGINE(*) 1 UNITS UNIT SUBCUT SCH (17:08)
[2018-03-23] MEDS: Atorvastatin* 40 MG TAB NG TUBE SCH (21:54)
[2018-03-24] MEDS: Heparin VIAL(*) 5000 UNITS/ML VIAL (FIVE THOUSAND) SUBCUT SCH ×3 (05:08→21:38)
--- NOTE | 2018-03-24 06:04 | PN ---
Progress Note - Progress Note Date of Service: 03/24/18 Note: Paged for 3 second pause
[2018-03-24] MEDS: Insulin LISPRO* 1 UNITS UNIT SUBCUT SCH ×4 (08:07→21:37)
[2018-03-24] MEDS: Amiodarone TAB* 400 MG PO SCH (08:49)
[2018-03-24] MEDS: Clopidogrel TAB* 75 MG PO SCH (08:50)
[2018-03-24] MEDS: Lactobacillus Acidophilus* 1 TAB PO SCH ×2 (08:50→21:36)
[2018-03-24] MEDS: Metoprolol Tartrate TAB* 25 MG PO SCH ×2 (08:50→21:36)
[2018-03-24] MEDS: Aspirin 81 mg CHEW TAB* 81 MG TAB.CHEW PO SCH (08:51)
[2018-03-24] MEDS: Insulin GLARGINE(*) 1 UNITS UNIT SUBCUT SCH (15:43)
--- NOTE | 2018-03-24 17:32 | PN ---
Subjective Date of Service: 03/24/18 Interval History: Pt states he is feeling well. He indicated he vomited this AM but nursing was not aware. He denies any SOB. No significant coughing. He walked in the reese yesterday and did well with it. He is progressing with his trach care. Family History: Unchanged from Admission Social History: Unchanged from Admission Past Medical History: Unchanged from Admission Objective Active Medications: Acetaminophen (Tylenol Adult Liq*) 650 mg PEG TUBE Q4H PRN PRN Reason: PAIN Last Admin: 03/14/18 08:00 Dose: 650 mg Al Hydrox/Mg Hydrox/Simethicone (Maalox Plus*) 30 ml NG TUBE Q6H PRN PRN Reason: DYSPEPSIA Last Admin: 03/15/18 10:16 Dose: 30 ml Amiodarone HCl (Cordarone Tab*) 400 mg PO 0900,2100 [facility] Amlodipine Besylate (Norvasc Tab*) 5 mg PO DAILY [facility] Aspirin (Aspirin 81 Mg Chew Tab*) 81 mg PO DAILY [facility] Last Admin: 03/24/18 08:51 Dose: 81 mg Atorvastatin Calcium (Lipitor*) 40 mg NG TUBE BEDTIME [facility] Last Admin: 03/23/18 21:54 Dose: 40 mg Clopidogrel Bisulfate (Plavix Tab*) 75 mg PO DAILY [facility] Last Admin: 03/24/18 08:50 Dose: 75 mg Heparin Sodium (Porcine) (Heparin Vial(*)) 5,000 units SUBCUT Q8HR [facility] Last Admin: 03/24/18 13:30 Dose: 5,000 units Heparin Sodium (Porcine) (Heparin Flush Picc/Ml/Cvc(*)) 1 - 3 ml FLUSH 0600, 1800 [facility]; Protocol Last Admin: 03/24/18 05:08 Dose: 3 ml Hydralazine HCl (Apresoline Iv*) 10 mg IV SLOW PU Q6H PRN PRN Reason: SBP>165, HOLD FOR HR<60 Last Admin: 03/15/18 07:49 Dose: 10 mg Insulin Glargine (Lantus(*)) 5 units SUBCUT Q24H [facility] Last Admin: 03/24/18 15:43 Dose: 5 units Insulin Human Lispro (Humalog*) 0 units SUBCUT ACHS [facility]; Protocol Last Admin: 03/24/18 13:30 Dose: 1 units Lactobacillus Rhamnosus (Lactobacillus Acidophilus*) 1 tab PO BID [facility] Last Admin: 03/24/18 08:50 Dose: 1 tab Metoprolol Tartrate (Lopressor Tab*) 12.5 mg PO Q12HR [facility] Last Admin: 03/24/18 08:50 Dose: 12.5 mg Ondansetron HCl (Zofran Inj*) 4 mg IV Q6H PRN PRN Reason: NAUSEA/VOMITING Last Admin: 03/17/18 12:01 Dose: 4 mg Vital Signs - 8 hr 03/24/18 03/24/18 10:46 15:23 Temperature 97.0 F 98.4 F Pulse Rate 67 Respiratory 18 16 Rate Blood Pressure 153/45 137/49 (mmHg) O2 Sat by Pulse 100 100 Oximetry Oxygen Devices in Use Now: Tracheostomy Collar Appearance: Elderly male sitting up on the edge of the bed, NAD Eyes: No Scleral Icterus Ears/Nose/Mouth/Throat: Mucous Membranes Moist Respiratory: Symmetrical Chest Expansion and Respiratory Effort, Clear to Auscultation Cardiovascular: NL Sounds; No Murmurs; No JVD, RRR, - - 3+ LE edema Abdominal: NL Sounds; No Tenderness; No Distention Extremities: No Clubbing, Cyanosis Skin: No Nodules or Sclerosis Neurological: Alert and Oriented x 3 - Nutrition: Malnutrition Diagnosis/Plan Malnutrition Assessment by Registered Dietitian: Malnutrition Assessment Clinical Characteristics Acute,Moderate Malnutrition Assessment: - 6.1% wt loss in past one month Criteria - mild temporal muscle wasting - intake likely <75% EEE x 7 days Malnutrition Assessment: 1. follow [employer] re-evaluation of swallowing Interventions function; NPO at this time 2. follow for potential need for PEG placement 3. offer and begin po supplements when pt ready for some level of po intake Malnutrition Assessment: Goals 1. when safe for po intake, pt will tolerate least-restrictive diet texture without evidence of swallowing difficulty or aspiration 2. adequate po intake to maintain present wt and hydration status 3. achieve and maintain serum electrolytes within normal ranges 4. achieve and maintain regulation of bowel pattern; no constipation (or diarrhea) Result Diagrams: 03/23/18 05:21 03/23/18 05:21 Additional Lab and Data: Laboratory Results - last 24 hr 03/14/18 03/14/18 03/14/18 06:47 10:44 11:38 WBC RBC Hgb Hct MCV MCH MCHC RDW Plt Count MPV Neut % (Auto) Lymph % (Auto) [place] % (Auto) Eos % (Auto) Baso % (Auto) Absolute Neuts (auto) Absolute Lymphs (auto) Absolute Monos (auto) Absolute Eos (auto) Absolute Basos (auto) Absolute Nucleated RBC Nucleated RBC % Sodium Potassium Chloride Carbon Dioxide Anion Gap BUN Creatinine Est GFR ( Amer) Est GFR (Non-Af Amer) BUN/Creatinine Ratio Glucose POC Glucose (mg/dL) 441 H* Glucose Meter Confirm 160 H Calcium Magnesium 2.1 03/14/18 03/14/18 03/15/18 17:44 23:55 05:40 WBC RBC Hgb Hct MCV MCH MCHC RDW Plt Count MPV Neut % (Auto) Lymph % (Auto) [place] % (Auto) Eos % (Auto) Baso % (Auto) Absolute Neuts (auto) Absolute Lymphs (auto) Absolute Monos (auto) Absolute Eos (auto) Absolute Basos (auto) Absolute Nucleated RBC Nucleated RBC % Sodium Potassium Chloride Carbon Dioxide Anion Gap BUN Creatinine Est GFR ( Amer) Est GFR (Non-Af Amer) BUN/Creatinine Ratio Glucose POC Glucose (mg/dL) 160 H 143 H 131 H Glucose Meter Confirm Calcium Magnesium 03/15/18 03/15/18 06:34 06:34 WBC 13.2 H RBC 3.86 L Hgb 10.9 L Hct 33 L MCV 85 MCH 28 MCHC 33 RDW 16 H Plt Count 296 MPV 7.9 Neut % (Auto) 89.4 Lymph % (Auto) 4.4 [place] % (Auto) 4.5 Eos % (Auto) 0.7 Baso % (Auto) 1.0 Absolute Neuts (auto) 11.8 H Absolute Lymphs (auto) 0.6 L Absolute Monos (auto) 0.6 Absolute Eos (auto) 0.1 Absolute Basos (auto) 0.1 Absolute Nucleated RBC 0 Nucleated RBC % 0.1 Sodium 142 Potassium 4.3 Chloride 112 H Carbon Dioxide 24 Anion Gap 6 BUN 22 Creatinine 1.21 H Est GFR ( Amer) 68.3 Est GFR (Non-Af Amer) 56.5 BUN/Creatinine Ratio 18.2 Glucose 102 H POC Glucose (mg/dL) Glucose Meter Confirm Calcium 8.7 Magnesium 2.1 Microbiology and Other Data: Microbiology 03/01/18 14:50 Nasal Screen MRSA (PCR) - Final Nasal Mrsa Not Detected Assess/Plan/Problems-Billing Mr. 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 - Patient Problems (1) Ventricular tachycardia Current Visit: Yes Status: Acute Code(s): I47.2 - VENTRICULAR TACHYCARDIA SNOMED Code(s): 46164196 Comment: Pt with likely NSTEMI post op as evidenced by EKG changes and reduced EF on echo. Continue ASA, plavix. LifeVest is ordered and should be delivered Tuesday. Will need to follow up with cardiology after discharge. Repeat BMP to ensure electrolytes are stable. Continue amiodarone but prior to d /c will need to discuss with cardiology appropriate amiodarone dose. (2) CAD (coronary artery disease) Current Visit: Yes Status: Chronic Code(s): I25.10 - ATHSCL HEART DISEASE OF [place] CORONARY ARTERY W/O ANG PCTRS SNOMED Code(s): 10450304 Comment: As above it is thought the patient had a [place] post op. Continue ASA, plavix, metoprolol and lipitor. (3) Laryngeal cancer Current Visit: Yes Status: Acute Comment: s/p tracheostomy and laryngectomy. Waiting for trach supplies to be delivered-likey not before . (4) Tracheostomy in place Current Visit: Yes Status: Acute Code(s): Z93.0 - TRACHEOSTOMY STATUS SNOMED Code(s): 875482488 Comment: Continue tracheostomy education. (5) Atrial fibrillation Current Visit: Yes Status: Chronic Code(s): I48.91 - UNSPECIFIED ATRIAL FIBRILLATION SNOMED Code(s): 13304220 Comment: Chronic afib. HR controlled on low dose metoprolol-HR has been dipping into high 30's with occasional up to 3sec pauses. Pt has refused anticoagulation previously. (6) Malnutrition Current Visit: Yes Status: Acute Code(s): E46 - UNSPECIFIED PROTEIN-CALORIE MALNUTRITION SNOMED Code(s): 68736104 Comment: Pt is eating ok on soft diet. (7) CKD (chronic kidney disease) stage 3, GFR 30-59 ml/min Current Visit: Yes Status: Acute Code(s): N18.3 - CHRONIC KIDNEY DISEASE, STAGE 3 (MODERATE) SNOMED Code(s): 431395943 Comment: Creatinine up some from baseline. Hold diuretics, repeat BMP . (8) Diabetes mellitus Current Visit: Yes Status: Chronic Code(s): E11.9 - TYPE 2 DIABETES MELLITUS WITHOUT COMPLICATIONS SNOMED Code(s): 95490895 Comment: Sugars have fluctuated quite a bit. It does not appear he is on any medications for DM at home. He was started on lantus 5units daily. Add metformin 500mg BID and continue lantus for now. (9) HTN (hypertension) Current Visit: Yes Status: Chronic Code(s): I10 - ESSENTIAL (PRIMARY) HYPERTENSION SNOMED Code(s): 47482476 Comment: BP is still up, add back amlodipine. (10) DVT prophylaxis Current Visit: Yes Status: Acute Code(s): FEC3721 - SNOMED Code(s): 280955978 Comment: SQ heparin (11) Full code status Current Visit: Yes Status: Acute Code(s): Z78.9 - OTHER SPECIFIED HEALTH STATUS SNOMED Code(s): 532749204 Comment: Status and Disposition: .
[2018-03-24] MEDS: Amiodarone TAB* 200 MG PO SCH (21:36)
[2018-03-24] MEDS: Atorvastatin* 40 MG TAB NG TUBE SCH (21:36)
[2018-03-25] MEDS: Heparin VIAL(*) 5000 UNITS/ML VIAL (FIVE THOUSAND) SUBCUT SCH ×3 (05:33→20:50)
[2018-03-25 06:00] LABS: Hematocrit 33 % (42-52); Hemoglobin 10.9 g/dl (14.0-18.0); Mean Corpuscular HGB Conc 33 g/dl (31-36); Mean Corpuscular Hemoglobin 29 pg (27-31); Mean Corpuscular Volume 86 fL (80-94); Mean Platelet Volume 7.7 fL (7.4-10.4); Platelet Count 283 10^3/ul (150-450); Red Blood Count 3.79 10^6/ul (4.00-5.40); Red Cell Distribution Width 18 % (10.5-15); White Blood Count 13.3 10^3/ul (3.5-10.8)
[2018-03-25 06:18] LABS: BUN/Creatinine Ratio 22.8 (8-20); Calcium 8.7 mg/dL (8.6-10.3); EGFR African American 43.2 (>60); EGFR Non-African American 35.7 (>60); Potassium 3.6 mmol/L (3.5-5.0)
[2018-03-25] MEDS: Insulin LISPRO* 1 UNITS UNIT SUBCUT SCH ×4 (09:02→21:48)
[2018-03-25] MEDS: metFORMIN* 500 MG TAB PO SCH ×2 (09:07→16:55)
[2018-03-25] MEDS: Metoprolol Tartrate TAB* 25 MG PO SCH ×2 (09:07→20:49)
[2018-03-25] MEDS: amLODIPine TAB* 5 MG PO SCH (09:07)
[2018-03-25] MEDS: Amiodarone TAB* 200 MG PO SCH ×2 (09:07→20:49)
[2018-03-25] MEDS: Lactobacillus Acidophilus* 1 TAB PO SCH ×2 (09:07→20:49)
[2018-03-25] MEDS: Aspirin 81 mg CHEW TAB* 81 MG TAB.CHEW PO SCH (09:07)
[2018-03-25] MEDS: Clopidogrel TAB* 75 MG PO SCH (09:07)
[2018-03-25] MEDS: Metolazone TAB* 5 MG PO SCH (14:04)
[2018-03-25] MEDS: Insulin GLARGINE(*) 1 UNITS UNIT SUBCUT SCH (14:04)
--- NOTE | 2018-03-25 17:46 | PN ---
Subjective Date of Service: 03/25/18 Interval History: Pt seen and examined. Meds and labs reviewed. CC: SOB, and BLLE edema ROS: Denied OWENS/dizziness, F/C, N/V, CP, increased cough, sputum production, abd pain, diarrhea, constipation, dysuria, myalgias, arthralgias, throat pain, and new skin lesions. The rest of the 14 point ROS are unremarkable. PHYSICAL EXAM: GEN APPEARANCE: Awake, not in acute distress HEENT: NC/AT, PERRLA, moist oral mucosa, (-) throat erythema NECK: Soft, supple, (-) cervical LAD, (-)JVD, (+)intermittent small oozing of blood in trach HEART: S1S2 WNL, RRR, No MRG CHEST: Bibasal crackles, GAE ABD: Soft, ND/NT, NABS 4x Q EXT: No C/C/E SKIN: Warm to touch PSYCH: No active psychosis, hallucinations, depression, SI/HI Family History: Unchanged from Admission Social History: Unchanged from Admission Past Medical History: Unchanged from Admission Objective Active Medications: Acetaminophen (Tylenol Adult Liq*) 650 mg PEG TUBE Q4H PRN PRN Reason: PAIN Last Admin: 03/14/18 08:00 Dose: 650 mg Al Hydrox/Mg Hydrox/Simethicone (Maalox Plus*) 30 ml NG TUBE Q6H PRN PRN Reason: DYSPEPSIA Last Admin: 03/15/18 10:16 Dose: 30 ml Amiodarone HCl (Cordarone Tab*) 400 mg PO 0900,2100 [facility] Last Admin: 03/25/18 09:07 Dose: 400 mg Amlodipine Besylate (Norvasc Tab*) 5 mg PO DAILY [facility] Last Admin: 03/25/18 09:07 Dose: 5 mg Aspirin (Aspirin 81 Mg Chew Tab*) 81 mg PO DAILY [facility] Last Admin: 03/25/18 09:07 Dose: 81 mg Atorvastatin Calcium (Lipitor*) 40 mg NG TUBE BEDTIME [facility] Last Admin: 03/24/18 21:36 Dose: 40 mg Clopidogrel Bisulfate (Plavix Tab*) 75 mg PO DAILY [facility] Last Admin: 03/25/18 09:07 Dose: 75 mg Furosemide (Lasix Iv*) 40 mg IV BID [facility] Heparin Sodium (Porcine) (Heparin Vial(*)) 5,000 units SUBCUT Q8HR [facility] Last Admin: 03/25/18 14:04 Dose: 5,000 units Heparin Sodium (Porcine) (Heparin Flush Picc/Ml/Cvc(*)) 1 - 3 ml FLUSH 0600, 1800 [facility]; Protocol Last Admin: 03/25/18 16:56 Dose: 3 ml Insulin Glargine (Lantus(*)) 10 units SUBCUT Q24H [facility] Last Admin: 03/25/18 14:04 Dose: 10 units Insulin Human Lispro (Humalog*) 0 units SUBCUT ACHS [facility]; Protocol Last Admin: 03/25/18 16:55 Dose: 1 units Lactobacillus Rhamnosus (Lactobacillus Acidophilus*) 1 tab PO BID [facility] Last Admin: 03/25/18 09:07 Dose: 1 tab Metformin HCl (Glucophage*) 500 mg PO 0800,1700 [facility] Last Admin: 03/25/18 16:55 Dose: 500 mg Metolazone (Zaroxolyn Tab*) 5 mg PO DAILY@0830 [facility] Last Admin: 03/25/18 14:04 Dose: 5 mg Metoprolol Tartrate (Lopressor Tab*) 12.5 mg PO Q12HR [facility] Last Admin: 03/25/18 09:07 Dose: 12.5 mg Ondansetron HCl (Zofran Inj*) 4 mg IV Q6H PRN PRN Reason: NAUSEA/VOMITING Last Admin: 03/17/18 12:01 Dose: 4 mg Vital Signs - 8 hr 03/25/18 03/25/18 12:00 15:00 Temperature 98.6 F 97.5 F Pulse Rate 155 54 Respiratory 18 20 Rate Blood Pressure 148/47 141/51 (mmHg) O2 Sat by Pulse 98 96 Oximetry Oxygen Devices in Use Now: Tracheostomy Collar - Nutrition: Malnutrition Diagnosis/Plan Malnutrition Assessment by Registered Dietitian: Malnutrition Assessment Clinical Characteristics Acute,Moderate Malnutrition Assessment: - 6.1% wt loss in past one month Criteria - mild temporal muscle wasting - intake likely <75% EEE x 7 days Malnutrition Assessment: 1. follow REPTILE KEEPER re-evaluation of swallowing Interventions function; NPO at this time 2. follow for potential need for PEG placement 3. offer and begin po supplements when pt ready for some level of po intake Malnutrition Assessment: Goals 1. when safe for po intake, pt will tolerate least-restrictive diet texture without evidence of swallowing difficulty or aspiration 2. adequate po intake to maintain present wt and hydration status 3. achieve and maintain serum electrolytes within normal ranges 4. achieve and maintain regulation of bowel pattern; no constipation (or diarrhea) Result Diagrams: 03/25/18 05:40 03/25/18 05:40 Additional Lab and Data: Laboratory Results - last 24 hr 03/14/18 03/14/18 03/14/18 06:47 10:44 11:38 WBC RBC Hgb Hct MCV MCH MCHC RDW Plt Count MPV Neut % (Auto) Lymph % (Auto) [place] % (Auto) Eos % (Auto) Baso % (Auto) Absolute Neuts (auto) Absolute Lymphs (auto) Absolute Monos (auto) Absolute Eos (auto) Absolute Basos (auto) Absolute Nucleated RBC Nucleated RBC % Sodium Potassium Chloride Carbon Dioxide Anion Gap BUN Creatinine Est GFR ( Amer) Est GFR (Non-Af Amer) BUN/Creatinine Ratio Glucose POC Glucose (mg/dL) 441 H* Glucose Meter Confirm 160 H Calcium Magnesium 2.1 03/14/18 03/14/18 03/15/18 17:44 23:55 05:40 WBC RBC Hgb Hct MCV MCH MCHC RDW Plt Count MPV Neut % (Auto) Lymph % (Auto) [place] % (Auto) Eos % (Auto) Baso % (Auto) Absolute Neuts (auto) Absolute Lymphs (auto) Absolute Monos (auto) Absolute Eos (auto) Absolute Basos (auto) Absolute Nucleated RBC Nucleated RBC % Sodium Potassium Chloride Carbon Dioxide Anion Gap BUN Creatinine Est GFR ( Amer) Est GFR (Non-Af Amer) BUN/Creatinine Ratio Glucose POC Glucose (mg/dL) 160 H 143 H 131 H Glucose Meter Confirm Calcium Magnesium 03/15/18 03/15/18 06:34 06:34 WBC 13.2 H RBC 3.86 L Hgb 10.9 L Hct 33 L MCV 85 MCH 28 MCHC 33 RDW 16 H Plt Count 296 MPV 7.9 Neut % (Auto) 89.4 Lymph % (Auto) 4.4 [place] % (Auto) 4.5 Eos % (Auto) 0.7 Baso % (Auto) 1.0 Absolute Neuts (auto) 11.8 H Absolute Lymphs (auto) 0.6 L Absolute Monos (auto) 0.6 Absolute Eos (auto) 0.1 Absolute Basos (auto) 0.1 Absolute Nucleated RBC 0 Nucleated RBC % 0.1 Sodium 142 Potassium 4.3 Chloride 112 H Carbon Dioxide 24 Anion Gap 6 BUN 22 Creatinine 1.21 H Est GFR ( Amer) 68.3 Est GFR (Non-Af Amer) 56.5 BUN/Creatinine Ratio 18.2 Glucose 102 H POC Glucose (mg/dL) Glucose Meter Confirm Calcium 8.7 Magnesium 2.1 Microbiology and Other Data: Microbiology 03/01/18 14:50 Nasal Screen MRSA (PCR) - Final Nasal Mrsa Not Detected Assess/Plan/Problems-Billing Mr. 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 - Patient Problems (1) Acute systolic CHF (congestive heart failure) Current Visit: Yes Status: Acute Code(s): I50.21 - ACUTE SYSTOLIC ( CONGESTIVE) HEART FAILURE SNOMED Code(s): 487749419 Comment: -Systolic -Placed pt on Lasix IV BID -Likely cause of mild leukocytosis as pt does not complain of increased cough w/ sputum production (2) Ventricular tachycardia Current Visit: Yes Status: Acute Code(s): I47.2 - VENTRICULAR TACHYCARDIA SNOMED Code(s): 70868211 Comment: Pt with likely NSTEMI post op as evidenced by EKG changes and reduced EF on echo. Continue ASA, plavix. LifeVest is ordered and should be delivered Tuesday. Will need to follow up with cardiology after discharge. Repeat BMP to ensure electrolytes are stable. Continue amiodarone but prior to d /c will need to discuss with cardiology appropriate amiodarone dose. (3) CAD (coronary artery disease) Current Visit: Yes Status: Chronic Code(s): I25.10 - ATHSCL HEART DISEASE OF [place] CORONARY ARTERY W/O ANG PCTRS SNOMED Code(s): 87089519 Comment: As above it is thought the patient had a IA post op. Continue ASA, plavix, metoprolol and lipitor. (4) Laryngeal cancer Current Visit: Yes Status: Acute Comment: s/p tracheostomy and laryngectomy. Waiting for trach supplies to be delivered-likey not before . (5) Tracheostomy in place Current Visit: Yes Status: Acute Code(s): Z93.0 - TRACHEOSTOMY STATUS SNOMED Code(s): 731419961 Comment: Continue tracheostomy education. (6) Atrial fibrillation Current Visit: Yes Status: Chronic Code(s): I48.91 - UNSPECIFIED ATRIAL FIBRILLATION SNOMED Code(s): 92125916 Comment: Chronic afib. HR controlled on low dose metoprolol-HR has been dipping into high 30's with occasional up to 3sec pauses. Pt has refused anticoagulation previously. (7) Malnutrition Current Visit: Yes Status: Acute Code(s): E46 - UNSPECIFIED PROTEIN-CALORIE MALNUTRITION SNOMED Code(s): 97732556 Comment: Pt is eating ok on soft diet. (8) CKD (chronic kidney disease) stage 3, GFR 30-59 ml/min Current Visit: Yes Status: Acute Code(s): N18.3 - CHRONIC KIDNEY DISEASE, STAGE 3 (MODERATE) SNOMED Code(s): 190016033 Comment: -Creatinine up some from baseline likely due to CHF exacerbation and will start IV Lasix as described above (9) Diabetes mellitus Current Visit: Yes Status: Chronic Code(s): E11.9 - TYPE 2 DIABETES MELLITUS WITHOUT COMPLICATIONS SNOMED Code(s): 47345102 Comment: -Uncontrolled -Adjusted Lantus -Continue to monitor FS as ordered (10) HTN (hypertension) Current Visit: Yes Status: Chronic Code(s): I10 - ESSENTIAL (PRIMARY) HYPERTENSION SNOMED Code(s): 45556717 Comment: -BP is still up, add back amlodipine. -Improved w/diuresis (11) DVT prophylaxis Current Visit: Yes Status: Acute Code(s): OOT0479 - SNOMED Code(s): 294174055 Comment: SQ heparin Status and Disposition: -Awaiting trach equipment on Tuesdaypossible D/C then -If intermittent trach bleeding continues to occur, will contact Dr. Stubbs (ENT); stable H&H
[2018-03-25] MEDS: Atorvastatin* 40 MG TAB NG TUBE SCH (20:49)
[2018-03-25] MEDS: Furosemide IV* 10 MG/ML VIAL (40 MG) IV SCH (20:51)
[2018-03-26] MEDS: Heparin VIAL(*) 5000 UNITS/ML VIAL (FIVE THOUSAND) SUBCUT SCH ×3 (05:34→21:20)
[2018-03-26 05:52] LABS: Hematocrit 31 % (42-52); Hemoglobin 10.3 g/dl (14.0-18.0); Mean Corpuscular HGB Conc 33 g/dl (31-36); Mean Corpuscular Hemoglobin 29 pg (27-31); Mean Corpuscular Volume 87 fL (80-94); Mean Platelet Volume 7.1 fL (7.4-10.4); Platelet Count 301 10^3/ul (150-450); Red Blood Count 3.58 10^6/ul (4.00-5.40); Red Cell Distribution Width 17 % (10.5-15); White Blood Count 12.7 10^3/ul (3.5-10.8)
[2018-03-26 06:17] LABS: Albumin 2.9 g/dL (3.2-5.2); Albumin/Globulin Ratio 0.9 (1-3); BUN/Creatinine Ratio 22.9 (8-20); Calcium 8.9 mg/dL (8.6-10.3); EGFR African American 43.5 (>60); EGFR Non-African American 35.9 (>60); Globulin 3.2 g/dL (2-4); Magnesium 1.6 mg/dL (1.9-2.7); Phosphorus 3.3 mg/dL (2.5-5.0); Potassium 3.5 mmol/L (3.5-5.0); Total Bilirubin 0.7 mg/dL (0.2-1.0); Total Protein 6.1 g/dL (6.4-8.9)
[2018-03-26] MEDS: Insulin LISPRO* 1 UNITS UNIT SUBCUT SCH ×4 (08:27→21:20)
[2018-03-26] MEDS: Clopidogrel TAB* 75 MG PO SCH (08:52)
[2018-03-26] MEDS: Lactobacillus Acidophilus* 1 TAB PO SCH ×2 (08:52→21:19)
[2018-03-26] MEDS: Aspirin 81 mg CHEW TAB* 81 MG TAB.CHEW PO SCH (08:52)
[2018-03-26] MEDS: amLODIPine TAB* 5 MG PO SCH (08:52)
[2018-03-26] MEDS: Metolazone TAB* 5 MG PO SCH (08:52)
[2018-03-26] MEDS: metFORMIN* 500 MG TAB PO SCH ×2 (08:52→17:06)
[2018-03-26] MEDS: Amiodarone TAB* 200 MG PO SCH ×2 (08:52→21:19)
[2018-03-26] MEDS: Metoprolol Tartrate TAB* 25 MG PO SCH ×2 (08:53→21:20)
[2018-03-26] MEDS: Furosemide IV* 10 MG/ML VIAL (40 MG) IV SCH ×2 (09:28→21:20)
[2018-03-26] MEDS: Insulin GLARGINE(*) 1 UNITS UNIT SUBCUT SCH (12:36)
--- NOTE | 2018-03-26 16:48 | PN ---
Subjective Date of Service: 03/26/18 Interval History: Pt seen and examined. Meds and labs reviewed. CC: N/A ROS: Denied OWENS/dizziness, F/C, N/V, CP, SOB, increased cough, sputum production , abd pain, diarrhea, constipation, dysuria, myalgias, arthralgias, throat pain , and new skin lesions. The rest of the 14 point ROS are unremarkable. PHYSICAL EXAM: GEN APPEARANCE: Awake, not in acute distress HEENT: NC/AT, PERRLA, moist oral mucosa, (-) throat erythema NECK: Soft, supple, (-) cervical LAD, (-)JVD, (+)intermittent small oozing of blood in trach HEART: S1S2 WNL, RRR, No MRG CHEST: Bibasal crackles, improved GAE ABD: Soft, ND/NT, NABS 4x Q EXT: No C/C/E SKIN: Warm to touch PSYCH: No active psychosis, hallucinations, depression, SI/HI Family History: Unchanged from Admission Social History: Unchanged from Admission Past Medical History: Unchanged from Admission Objective Active Medications: Acetaminophen (Tylenol Adult Liq*) 650 mg PEG TUBE Q4H PRN PRN Reason: PAIN Last Admin: 03/14/18 08:00 Dose: 650 mg Al Hydrox/Mg Hydrox/Simethicone (Maalox Plus*) 30 ml NG TUBE Q6H PRN PRN Reason: DYSPEPSIA Last Admin: 03/15/18 10:16 Dose: 30 ml Amiodarone HCl (Cordarone Tab*) 400 mg PO 0900,2100 [facility] Last Admin: 03/26/18 08:52 Dose: 400 mg Amlodipine Besylate (Norvasc Tab*) 5 mg PO DAILY [facility] Last Admin: 03/26/18 08:52 Dose: 5 mg Aspirin (Aspirin 81 Mg Chew Tab*) 81 mg PO DAILY [facility] Last Admin: 03/26/18 08:52 Dose: 81 mg Atorvastatin Calcium (Lipitor*) 40 mg NG TUBE BEDTIME [facility] Last Admin: 03/25/18 20:49 Dose: 40 mg Clopidogrel Bisulfate (Plavix Tab*) 75 mg PO DAILY [facility] Last Admin: 03/26/18 08:52 Dose: 75 mg Furosemide (Lasix Iv*) 40 mg IV BID [facility] Last Admin: 03/26/18 09:28 Dose: 40 mg Heparin Sodium (Porcine) (Heparin Vial(*)) 5,000 units SUBCUT Q8HR [facility] Last Admin: 03/26/18 12:37 Dose: 5,000 units Heparin Sodium (Porcine) (Heparin Flush Picc/Ml/Cvc(*)) 1 - 3 ml FLUSH 0600, 1800 [facility]; Protocol Last Admin: 03/26/18 09:28 Dose: 1 ml Insulin Glargine (Lantus(*)) 10 units SUBCUT Q24H [facility] Last Admin: 03/26/18 12:36 Dose: 10 units Insulin Human Lispro (Humalog*) 0 units SUBCUT ACHS [facility]; Protocol Last Admin: 03/26/18 12:36 Dose: 1 units Lactobacillus Rhamnosus (Lactobacillus Acidophilus*) 1 tab PO BID [facility] Last Admin: 03/26/18 08:52 Dose: 1 tab Metformin HCl (Glucophage*) 500 mg PO 0800,1700 [facility] Last Admin: 03/26/18 08:52 Dose: 500 mg Metolazone (Zaroxolyn Tab*) 5 mg PO DAILY@0830 [facility] Last Admin: 03/26/18 08:52 Dose: 5 mg Metoprolol Tartrate (Lopressor Tab*) 12.5 mg PO Q12HR [facility] Last Admin: 03/26/18 08:53 Dose: 12.5 mg Ondansetron HCl (Zofran Inj*) 4 mg IV Q6H PRN PRN Reason: NAUSEA/VOMITING Last Admin: 03/17/18 12:01 Dose: 4 mg Vital Signs - 8 hr 03/26/18 03/26/18 03/26/18 08:53 09:21 11:58 Temperature 96.8 F Pulse Rate 76 97 Respiratory 20 Rate Blood Pressure 151/51 (mmHg) O2 Sat by Pulse 94 99 Oximetry 03/26/18 15:08 Temperature 96.7 F Pulse Rate 82 Respiratory 20 Rate Blood Pressure 134/47 (mmHg) O2 Sat by Pulse 93 Oximetry Oxygen Devices in Use Now: Tracheostomy Collar - Nutrition: Malnutrition Diagnosis/Plan Malnutrition Assessment by Registered Dietitian: Malnutrition Assessment Clinical Characteristics Acute,Moderate Malnutrition Assessment: - 6.1% wt loss in past one month Criteria - mild temporal muscle wasting - intake likely <75% EEE x 7 days Malnutrition Assessment: 1. follow ROOF PLUMBER re-evaluation of swallowing Interventions function; NPO at this time 2. follow for potential need for PEG placement 3. offer and begin po supplements when pt ready for some level of po intake Malnutrition Assessment: Goals 1. when safe for po intake, pt will tolerate least-restrictive diet texture without evidence of swallowing difficulty or aspiration 2. adequate po intake to maintain present wt and hydration status 3. achieve and maintain serum electrolytes within normal ranges 4. achieve and maintain regulation of bowel pattern; no constipation (or diarrhea) Result Diagrams: 03/26/18 05:30 03/26/18 05:30 Additional Lab and Data: Laboratory Results - last 24 hr 03/14/18 03/14/18 03/14/18 06:47 10:44 11:38 WBC RBC Hgb Hct MCV MCH MCHC RDW Plt Count MPV Neut % (Auto) Lymph % (Auto) [place] % (Auto) Eos % (Auto) Baso % (Auto) Absolute Neuts (auto) Absolute Lymphs (auto) Absolute Monos (auto) Absolute Eos (auto) Absolute Basos (auto) Absolute Nucleated RBC Nucleated RBC % Sodium Potassium Chloride Carbon Dioxide Anion Gap BUN Creatinine Est GFR ( Amer) Est GFR (Non-Af Amer) BUN/Creatinine Ratio Glucose POC Glucose (mg/dL) 441 H* Glucose Meter Confirm 160 H Calcium Magnesium 2.1 03/14/18 03/14/18 03/15/18 17:44 23:55 05:40 WBC RBC Hgb Hct MCV MCH MCHC RDW Plt Count MPV Neut % (Auto) Lymph % (Auto) [place] % (Auto) Eos % (Auto) Baso % (Auto) Absolute Neuts (auto) Absolute Lymphs (auto) Absolute Monos (auto) Absolute Eos (auto) Absolute Basos (auto) Absolute Nucleated RBC Nucleated RBC % Sodium Potassium Chloride Carbon Dioxide Anion Gap BUN Creatinine Est GFR ( Amer) Est GFR (Non-Af Amer) BUN/Creatinine Ratio Glucose POC Glucose (mg/dL) 160 H 143 H 131 H Glucose Meter Confirm Calcium Magnesium 03/15/18 03/15/18 06:34 06:34 WBC 13.2 H RBC 3.86 L Hgb 10.9 L Hct 33 L MCV 85 MCH 28 MCHC 33 RDW 16 H Plt Count 296 MPV 7.9 Neut % (Auto) 89.4 Lymph % (Auto) 4.4 [place] % (Auto) 4.5 Eos % (Auto) 0.7 Baso % (Auto) 1.0 Absolute Neuts (auto) 11.8 H Absolute Lymphs (auto) 0.6 L Absolute Monos (auto) 0.6 Absolute Eos (auto) 0.1 Absolute Basos (auto) 0.1 Absolute Nucleated RBC 0 Nucleated RBC % 0.1 Sodium 142 Potassium 4.3 Chloride 112 H Carbon Dioxide 24 Anion Gap 6 BUN 22 Creatinine 1.21 H Est GFR ( Amer) 68.3 Est GFR (Non-Af Amer) 56.5 BUN/Creatinine Ratio 18.2 Glucose 102 H POC Glucose (mg/dL) Glucose Meter Confirm Calcium 8.7 Magnesium 2.1 Microbiology and Other Data: Microbiology 03/01/18 14:50 Nasal Screen MRSA (PCR) - Final Nasal Mrsa Not Detected Assess/Plan/Problems-Billing Mr. 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 - Patient Problems (1) Acute systolic CHF (congestive heart failure) Current Visit: Yes Status: Acute Code(s): I50.21 - ACUTE SYSTOLIC ( CONGESTIVE) HEART FAILURE SNOMED Code(s): 303182874 Comment: -Systolic -Continue Lasix IV BID -Likely cause of mild leukocytosis as pt does not complain of increased cough w/ sputum production; leukocytosis improved (2) Ventricular tachycardia Current Visit: Yes Status: Acute Code(s): I47.2 - VENTRICULAR TACHYCARDIA SNOMED Code(s): 43822468 Comment: Pt with likely NSTEMI post op as evidenced by EKG changes and reduced EF on echo. Continue ASA, plavix. LifeVest is ordered and should be delivered Tuesday. Will need to follow up with cardiology after discharge. Repeat BMP to ensure electrolytes are stable. Continue amiodarone but prior to d /c will need to discuss with cardiology appropriate amiodarone dose. (3) CAD (coronary artery disease) Current Visit: Yes Status: Chronic Code(s): I25.10 - ATHSCL HEART DISEASE OF [place] CORONARY ARTERY W/O ANG PCTRS SNOMED Code(s): 73450358 Comment: As above it is thought the patient had a [place] post op. Continue ASA, plavix, metoprolol and lipitor. (4) Laryngeal cancer Current Visit: Yes Status: Acute Comment: s/p tracheostomy and laryngectomy. Waiting for trach supplies to be delivered-likey not before . (5) Tracheostomy in place Current Visit: Yes Status: Acute Code(s): Z93.0 - TRACHEOSTOMY STATUS SNOMED Code(s): 669294723 Comment: Continue tracheostomy education. (6) Atrial fibrillation Current Visit: Yes Status: Chronic Code(s): I48.91 - UNSPECIFIED ATRIAL FIBRILLATION SNOMED Code(s): 99489355 Comment: Chronic afib. HR controlled on low dose metoprolol-HR has been dipping into high 30's with occasional up to 3sec pauses. Pt has refused anticoagulation previously. (7) Malnutrition Current Visit: Yes Status: Acute Code(s): E46 - UNSPECIFIED PROTEIN-CALORIE MALNUTRITION SNOMED Code(s): 63763240 Comment: Pt is eating ok on soft diet. (8) CKD (chronic kidney disease) stage 3, GFR 30-59 ml/min Current Visit: Yes Status: Acute Code(s): N18.3 - CHRONIC KIDNEY DISEASE, STAGE 3 (MODERATE) SNOMED Code(s): 110932419 Comment: -Creatinine up some from baseline likely due to CHF exacerbation and will start IV Lasix as described above (9) Diabetes mellitus Current Visit: Yes Status: Chronic Code(s): E11.9 - TYPE 2 DIABETES MELLITUS WITHOUT COMPLICATIONS SNOMED Code(s): 14660150 Comment: -Improved control -Continue to monitor FS as ordered (10) HTN (hypertension) Current Visit: Yes Status: Chronic Code(s): I10 - ESSENTIAL (PRIMARY) HYPERTENSION SNOMED Code(s): 20760886 Comment: -BP is still up, add back amlodipine. -Improved w/diuresis (11) DVT prophylaxis Current Visit: Yes Status: Acute Code(s): QUG6684 - SNOMED Code(s): 161501403 Comment: SQ heparin Status and Disposition: -Awaiting trach equipment on Tuesday; possible D/C then -Intermittent bleeding of trach pt reported yesterday has stopped
[2018-03-26] MEDS: Atorvastatin* 40 MG TAB NG TUBE SCH (21:19)
[2018-03-27] MEDS: Heparin VIAL(*) 5000 UNITS/ML VIAL (FIVE THOUSAND) SUBCUT SCH (06:08)
[2018-03-27 06:27] LABS: Hematocrit 30 % (42-52); Hemoglobin 9.8 g/dl (14.0-18.0); Mean Corpuscular HGB Conc 33 g/dl (31-36); Mean Corpuscular Hemoglobin 29 pg (27-31); Mean Corpuscular Volume 87 fL (80-94); Platelet Count 213 10^3/ul (150-450); Red Blood Count 3.41 10^6/ul (4.00-5.40); Red Cell Distribution Width 18 % (10.5-15); White Blood Count 9.5 10^3/ul (3.5-10.8)
[2018-03-27 06:35] LABS: Activated Partial Thrombo Time 30.2 seconds (26.0-36.3); INR 0.96 (0.77-1.02)
[2018-03-27 06:41] LABS: Albumin 2.8 g/dL (3.2-5.2); Albumin/Globulin Ratio 0.8 (1-3); BUN/Creatinine Ratio 23.4 (8-20); Calcium 8.9 mg/dL (8.6-10.3); EGFR African American 40.1 (>60); EGFR Non-African American 33.1 (>60); Globulin 3.4 g/dL (2-4); Magnesium 1.4 mg/dL (1.9-2.7); Phosphorus 3.8 mg/dL (2.5-5.0); Potassium 3.3 mmol/L (3.5-5.0); Total Bilirubin 0.7 mg/dL (0.2-1.0); Total Protein 6.2 g/dL (6.4-8.9)
[2018-03-27] MEDS: Insulin LISPRO* 1 UNITS UNIT SUBCUT SCH ×4 (07:56→20:51)
[2018-03-27] MEDS: Amiodarone TAB* 200 MG PO SCH ×2 (08:56→21:02)
[2018-03-27] MEDS: Aspirin 81 mg CHEW TAB* 81 MG TAB.CHEW PO SCH (08:56)
[2018-03-27] MEDS: amLODIPine TAB* 5 MG PO SCH (08:56)
[2018-03-27] MEDS: metFORMIN* 500 MG TAB PO SCH ×2 (08:56→17:24)
[2018-03-27] MEDS: Clopidogrel TAB* 75 MG PO SCH (08:56)
[2018-03-27] MEDS: Lactobacillus Acidophilus* 1 TAB PO SCH ×2 (08:56→21:02)
[2018-03-27] MEDS: Metoprolol Tartrate TAB* 25 MG PO SCH ×2 (08:56→21:02)
[2018-03-27] MEDS: Metolazone TAB* 5 MG PO SCH (08:56)
[2018-03-27] MEDS: Furosemide IV* 10 MG/ML VIAL (40 MG) IV SCH (09:29)
[2018-03-27] MEDS ORDERED: Magnesium Sulf 4 GM/100 ML IV* 4,000 MG/100 ML BAG IVPB ONE (09:29)
[2018-03-27] MEDS ORDERED: Potassium Chlor TAB* 20 MEQ TAB.ER PO STA (09:30)
[2018-03-27] MEDS: Insulin GLARGINE(*) 1 UNITS UNIT SUBCUT SCH (13:07)
--- NOTE | 2018-03-27 19:42 | PN ---
Subjective Date of Service: 03/27/18 Interval History: Pt seen and examined. Meds and labs reviewed. CC: Bleeding of trach site ROS: Denied OWENS/dizziness, F/C, N/V, CP, SOB, increased cough, sputum production , abd pain, diarrhea, constipation, dysuria, myalgias, arthralgias, throat pain , and new skin lesions. The rest of the 14 point ROS are unremarkable. PHYSICAL EXAM: GEN APPEARANCE: Awake, not in acute distress HEENT: NC/AT, PERRLA, moist oral mucosa, (-) throat erythema NECK: Soft, supple, (-) cervical LAD, (-)JVD, (+)blood in trach and tubing more than usual HEART: S1S2 WNL, RRR, No MRG CHEST: Bibasal crackles, improved GAE ABD: Soft, ND/NT, NABS 4x Q EXT: No C/C/E SKIN: Warm to touch PSYCH: No active psychosis, hallucinations, depression, SI/HI Family History: Unchanged from Admission Social History: Unchanged from Admission Past Medical History: Unchanged from Admission Objective Active Medications: Acetaminophen (Tylenol Adult Liq*) 650 mg PEG TUBE Q4H PRN PRN Reason: PAIN Last Admin: 03/14/18 08:00 Dose: 650 mg Al Hydrox/Mg Hydrox/Simethicone (Maalox Plus*) 30 ml NG TUBE Q6H PRN PRN Reason: DYSPEPSIA Last Admin: 03/15/18 10:16 Dose: 30 ml Amiodarone HCl (Cordarone Tab*) 400 mg PO 0900,2100 [facility]BRA Last Admin: 03/27/18 08:56 Dose: 400 mg Amlodipine Besylate (Norvasc Tab*) 5 mg PO DAILY DEBRA Last Admin: 03/27/18 08:56 Dose: 5 mg Aspirin (Aspirin 81 Mg Chew Tab*) 81 mg PO DAILY DEBRA Last Admin: 03/27/18 08:56 Dose: 81 mg Atorvastatin Calcium (Lipitor*) 40 mg NG TUBE BEDTIME DEBRA Last Admin: 03/26/18 21:19 Dose: 40 mg Clopidogrel Bisulfate (Plavix Tab*) 75 mg PO DAILY DBERA Last Admin: 03/27/18 08:56 Dose: 75 mg Heparin Sodium (Porcine) (Heparin Flush Picc/Ml/Cvc(*)) 1 - 3 ml FLUSH 0600, 1800 DEBRA; Protocol Last Admin: 03/27/18 17:24 Dose: 3 ml Insulin Glargine (Lantus(*)) 10 units SUBCUT Q24H [facility] Last Admin: 03/27/18 13:07 Dose: 10 units Insulin Human Lispro (Humalog*) 0 units SUBCUT ACHS [facility]; Protocol Last Admin: 03/27/18 17:24 Dose: 1 units Lactobacillus Rhamnosus (Lactobacillus Acidophilus*) 1 tab PO BID [facility] Last Admin: 03/27/18 08:56 Dose: 1 tab Metformin HCl (Glucophage*) 500 mg PO 0800,1700 [facility] Last Admin: 03/27/18 17:24 Dose: 500 mg Metolazone (Zaroxolyn Tab*) 5 mg PO DAILY@0830 [facility] Last Admin: 03/27/18 08:56 Dose: 5 mg Metoprolol Tartrate (Lopressor Tab*) 12.5 mg PO Q12HR [facility] Last Admin: 03/27/18 08:56 Dose: 12.5 mg Ondansetron HCl (Zofran Inj*) 4 mg IV Q6H PRN PRN Reason: NAUSEA/VOMITING Last Admin: 03/17/18 12:01 Dose: 4 mg Vital Signs - 8 hr 03/27/18 03/27/18 15:52 18:58 Temperature 97.4 F Pulse Rate 79 Respiratory 18 Rate Blood Pressure 122/65 (mmHg) O2 Sat by Pulse 98 86 Oximetry Oxygen Devices in Use Now: None - Nutrition: Malnutrition Diagnosis/Plan Malnutrition Assessment by Registered Dietitian: Malnutrition Assessment Clinical Characteristics Acute,Moderate Malnutrition Assessment: - 6.1% wt loss in past one month Criteria - mild temporal muscle wasting - intake likely <75% EEE x 7 days Malnutrition Assessment: 1. 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 follow for potential need for PEG placement 3. offer and begin po supplements when pt ready for some level of po intake Malnutrition Assessment: Goals 1. when safe for po intake, pt will tolerate least-restrictive diet texture without evidence of swallowing difficulty or aspiration 2. adequate po intake to maintain present wt and hydration status 3. achieve and maintain serum electrolytes within normal ranges 4. achieve and maintain regulation of bowel pattern; no constipation (or diarrhea) Result Diagrams: 03/27/18 06:05 02/18/19 06:05 Additional Lab and Data: Laboratory Results - last 24 hr 03/14/18 03/14/18 03/14/18 06:47 10:44 11:38 WBC RBC Hgb Hct MCV MCH MCHC RDW Plt Count MPV Neut % (Auto) Lymph % (Auto) [place] % (Auto) Eos % (Auto) Baso % (Auto) Absolute Neuts (auto) Absolute Lymphs (auto) Absolute Monos (auto) Absolute Eos (auto) Absolute Basos (auto) Absolute Nucleated RBC Nucleated RBC % Sodium Potassium Chloride Carbon Dioxide Anion Gap BUN Creatinine Est GFR ( Amer) Est GFR (Non-Af Amer) BUN/Creatinine Ratio Glucose POC Glucose (mg/dL) 441 H* Glucose Meter Confirm 160 H Calcium Magnesium 2.1 03/14/18 03/14/18 03/15/18 17:44 23:55 05:40 WBC RBC Hgb Hct MCV MCH MCHC RDW Plt Count MPV Neut % (Auto) Lymph % (Auto) [place] % (Auto) Eos % (Auto) Baso % (Auto) Absolute Neuts (auto) Absolute Lymphs (auto) Absolute Monos (auto) Absolute Eos (auto) Absolute Basos (auto) Absolute Nucleated RBC Nucleated RBC % Sodium Potassium Chloride Carbon Dioxide Anion Gap BUN Creatinine Est GFR ( Amer) Est GFR (Non-Af Amer) BUN/Creatinine Ratio Glucose POC Glucose (mg/dL) 160 H 143 H 131 H Glucose Meter Confirm Calcium Magnesium 03/15/18 03/15/18 06:34 06:34 WBC 13.2 H RBC 3.86 L Hgb 10.9 L Hct 33 L MCV 85 MCH 28 MCHC 33 RDW 16 H Plt Count 296 MPV 7.9 Neut % (Auto) 89.4 Lymph % (Auto) 4.4 [place] % (Auto) 4.5 Eos % (Auto) 0.7 Baso % (Auto) 1.0 Absolute Neuts (auto) 11.8 H Absolute Lymphs (auto) 0.6 L Absolute Monos (auto) 0.6 Absolute Eos (auto) 0.1 Absolute Basos (auto) 0.1 Absolute Nucleated RBC 0 Nucleated RBC % 0.1 Sodium 142 Potassium 4.3 Chloride 112 H Carbon Dioxide 24 Anion Gap 6 BUN 22 Creatinine 1.21 H Est GFR ( Amer) 68.3 Est GFR (Non-Af Amer) 56.5 BUN/Creatinine Ratio 18.2 Glucose 102 H POC Glucose (mg/dL) Glucose Meter Confirm Calcium 8.7 Magnesium 2.1 Microbiology and Other Data: Microbiology 03/01/18 14:50 Nasal Screen MRSA (PCR) - Final Nasal Mrsa Not Detected Assess/Plan/Problems-Billing Mr. 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 - Patient Problems (1) Tracheostomy complication Current Visit: Yes Status: Acute Code(s): J95.00 - UNSPECIFIED TRACHEOSTOMY COMPLICATION SNOMED Code(s): 29222447 Comment: -There is some bleeding of tracheostomy; increased bleeding from previous -D/W Dr. Stubbs -Will await further input -Coags and plt ct WNL -D/C pharmacologic DVT prophylaxis (2) Acute systolic CHF (congestive heart failure) Current Visit: Yes Status: Acute Code(s): I50.21 - ACUTE SYSTOLIC ( CONGESTIVE) HEART FAILURE SNOMED Code(s): 030343662 Comment: -Systolic; improved -Will hold Lasix for now; consider Torsemide 20 mg in 1-2 days -Likely cause of mild leukocytosis as pt does not complain of increased cough w/ sputum production; leukocytosis improved (3) Ventricular tachycardia Current Visit: Yes Status: Acute Code(s): I47.2 - VENTRICULAR TACHYCARDIA SNOMED Code(s): 81394016 Comment: Pt with likely NSTEMI post op as evidenced by EKG changes and reduced EF on echo. Continue ASA, plavix. LifeVest is ordered and should be delivered Tuesday. Will need to follow up with cardiology after discharge. Repeat BMP to ensure electrolytes are stable. Continue amiodarone but prior to d /c will need to discuss with cardiology appropriate amiodarone dose. (4) CAD (coronary artery disease) Current Visit: Yes Status: Chronic Code(s): I25.10 - ATHSCL HEART DISEASE OF [place] CORONARY ARTERY W/O ANG PCTRS SNOMED Code(s): 54497693 Comment: As above it is thought the patient had a PA post op. Continue ASA, plavix, metoprolol and lipitor. (5) Laryngeal cancer Current Visit: Yes Status: Acute Comment: s/p tracheostomy and laryngectomy. Waiting for trach supplies to be delivered-likey not before . (6) Tracheostomy in place Current Visit: Yes Status: Acute Code(s): Z93.0 - TRACHEOSTOMY STATUS SNOMED Code(s): 525614027 Comment: Continue tracheostomy education. (7) Atrial fibrillation Current Visit: Yes Status: Chronic Code(s): I48.91 - UNSPECIFIED ATRIAL FIBRILLATION SNOMED Code(s): 27891653 Comment: Chronic afib. HR controlled on low dose metoprolol-HR has been dipping into high 30's with occasional up to 3sec pauses. Pt has refused anticoagulation previously. (8) Malnutrition Current Visit: Yes Status: Acute Code(s): E46 - UNSPECIFIED PROTEIN-CALORIE MALNUTRITION SNOMED Code(s): 02530373 Comment: Pt is eating ok on soft diet. (9) CKD (chronic kidney disease) stage 3, GFR 30-59 ml/min Current Visit: Yes Status: Acute Code(s): N18.3 - CHRONIC KIDNEY DISEASE, STAGE 3 (MODERATE) SNOMED Code(s): 518410054 Comment: -Creatinine up some from baseline likely due to CHF exacerbation and will start IV Lasix as described above (10) Diabetes mellitus Current Visit: Yes Status: Chronic Code(s): E11.9 - TYPE 2 DIABETES MELLITUS WITHOUT COMPLICATIONS SNOMED Code(s): 12487991 Comment: -Improved control -Continue to monitor FS as ordered (11) HTN (hypertension) Current Visit: Yes Status: Chronic Code(s): I10 - ESSENTIAL (PRIMARY) HYPERTENSION SNOMED Code(s): 58617119 Comment: -BP is still up, add back amlodipine. -Improved w/diuresis (12) DVT prophylaxis Current Visit: Yes Status: Acute Code(s): CQL3208 - SNOMED Code(s): 717942359 Comment: -D/C Heparin Status and Disposition: -Awaiting trach equipment; will await official eval from Dr. Stubbs
[2018-03-27] MEDS: Atorvastatin* 40 MG TAB NG TUBE SCH (21:02)
--- NOTE | 2018-03-27 22:57 | PN ---
PROGRESS NOTE: DATE OF SERVICE: 03/27/18 The patient is doing well with his eating. He has seen a little bit of blood around his laryngectomy tube. I removed it and he has got some little bit of tracheal irritation from that. I think it is a little short and I had talked to Dr. Barbosa last week about getting a longer one and I talked to Respiratory Therapy today about that as well. He needs an [id number]. I would like to leave the tube out during the day when he is up and then place it with some Surgilube for bedtime. He is eating well. No swallowing difficulties. No fistula formation. [id number]/[facility] #: [id number] [facility]
[2018-03-28] MEDS: Insulin LISPRO* 1 UNITS UNIT SUBCUT SCH ×4 (08:11→20:28)
[2018-03-28] MEDS: Metoprolol Tartrate TAB* 25 MG PO SCH ×2 (08:12→20:28)
[2018-03-28] MEDS: Metolazone TAB* 5 MG PO SCH (08:13)
[2018-03-28] MEDS: Lactobacillus Acidophilus* 1 TAB PO SCH ×2 (08:14→20:28)
[2018-03-28] MEDS: Amiodarone TAB* 200 MG PO SCH ×2 (08:14→20:28)
[2018-03-28] MEDS: Aspirin 81 mg CHEW TAB* 81 MG TAB.CHEW PO SCH (08:14)
[2018-03-28] MEDS: Clopidogrel TAB* 75 MG PO SCH (08:14)
[2018-03-28] MEDS: amLODIPine TAB* 5 MG PO SCH (08:15)
[2018-03-28] MEDS: metFORMIN* 500 MG TAB PO SCH ×2 (08:15→19:26)
[2018-03-28] MEDS: Insulin GLARGINE(*) 1 UNITS UNIT SUBCUT SCH (12:50)
[2018-03-28] MEDS ORDERED: Furosemide IV* 10 MG/ML VIAL (40 MG) IV ONE (13:33)
--- NOTE | 2018-03-28 13:36 | PN ---
Subjective Date of Service: 03/28/18 Interval History: Pt has a difficult time communicated, but has written that he's had diffuse upper and lower extremity edema for approximately 2 weeks. Since admission appx 1 month ago, he has gained almost 30 pounds, according to daily weights. He denies CP, abd pain, n/v/d/c. He c/o occasional SOB, which seems to clear when he is able to suction and/or cough. Family History: Unchanged from Admission Social History: Unchanged from Admission Past Medical History: Unchanged from Admission Objective Active Medications: Acetaminophen (Tylenol Adult Liq*) 650 mg PEG TUBE Q4H PRN Al Hydrox/Mg Hydrox/Simethicone (Maalox Plus*) 30 ml NG TUBE Q6H PRN Amiodarone HCl (Cordarone Tab*) 400 mg PO 0900,2100 [facility] Amlodipine Besylate (Norvasc Tab*) 5 mg PO DAILY DEBRA Aspirin (Aspirin 81 Mg Chew Tab*) 81 mg PO DAILY DEBRA Atorvastatin Calcium (Lipitor*) 40 mg NG TUBE BEDTIME DEBRA Clopidogrel Bisulfate (Plavix Tab*) 75 mg PO DAILY DEBRA Heparin Sodium (Porcine) (Heparin Flush Picc/Ml/Cvc(*)) 1 - 3 ml FLUSH 0600, 1800 [facility]; Protocol Insulin Glargine (Lantus(*)) 10 units SUBCUT Q24H [facility] Insulin Human Lispro (Humalog*) 0 units SUBCUT ACHS [facility]; Protocol Lactobacillus Rhamnosus (Lactobacillus Acidophilus*) 1 tab PO BID [facility] Metformin HCl (Glucophage*) 500 mg PO 0800,1700 [facility] Metolazone (Zaroxolyn Tab*) 5 mg PO DAILY@0830 [facility] Metoprolol Tartrate (Lopressor Tab*) 12.5 mg PO Q12HR [facility] Ondansetron HCl (Zofran Inj*) 4 mg IV Q6H PRN Vital Signs: Temp Pulse Resp BP Pulse Ox 97.0 F 78 16 129/63 100 03/28/18 11:05 03/28/18 11:05 03/28/18 11:05 03/28/18 11:05 03/28/18 11:05 Oxygen Devices in Use Now: Tracheostomy Tube Appearance: Pt is sitting up in bed. He appears well and in no acute distress. Eyes: No Scleral Icterus, PERRLA Ears/Nose/Mouth/Throat: NL Teeth, Lips, Gums, Clear Oropharnyx, Mucous Membranes Moist Neck: NL Appearance and Movements; NL JVP, Trachea Midline, - Respiratory: Symmetrical Chest Expansion and Respiratory Effort, Clear to Auscultation Cardiovascular: NL Sounds; No Murmurs; No JVD, RRR, - - UE and LE b/l pitting edema Abdominal: NL Sounds; No Tenderness; No Distention, No Hepatosplenomegaly Extremities: No Clubbing, Cyanosis Neurological: Alert and Oriented x 3 - Nutrition: Malnutrition Diagnosis/Plan Malnutrition Assessment by Registered Dietitian: Malnutrition Assessment Clinical Characteristics Acute,Moderate Malnutrition Assessment: - 6.1% wt loss in past one month Criteria - mild temporal muscle wasting - intake likely <75% EEE x 7 days Malnutrition Assessment: 1. 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 follow for potential need for PEG placement 3. offer and begin po supplements when pt ready for some level of po intake Malnutrition Assessment: Goals 1. when safe for po intake, pt will tolerate least-restrictive diet texture without evidence of swallowing difficulty or aspiration 2. adequate po intake to maintain present wt and hydration status 3. achieve and maintain serum electrolytes within normal ranges 4. achieve and maintain regulation of bowel pattern; no constipation (or diarrhea) Result Diagrams: 03/29/18 04:30 03/29/18 04:30 Additional Lab and Data: Laboratory Results - last 24 hr 03/14/18 03/14/18 03/14/18 06:47 10:44 11:38 WBC RBC Hgb Hct MCV MCH MCHC RDW Plt Count MPV Neut % (Auto) Lymph % (Auto) [place] % (Auto) Eos % (Auto) Baso % (Auto) Absolute Neuts (auto) Absolute Lymphs (auto) Absolute Monos (auto) Absolute Eos (auto) Absolute Basos (auto) Absolute Nucleated RBC Nucleated RBC % Sodium Potassium Chloride Carbon Dioxide Anion Gap BUN Creatinine Est GFR ( Amer) Est GFR (Non-Af Amer) BUN/Creatinine Ratio Glucose POC Glucose (mg/dL) 441 H* Glucose Meter Confirm 160 H Calcium Magnesium 2.1 03/14/18 03/14/18 03/15/18 17:44 23:55 05:40 WBC RBC Hgb Hct MCV MCH MCHC RDW Plt Count MPV Neut % (Auto) Lymph % (Auto) [place] % (Auto) Eos % (Auto) Baso % (Auto) Absolute Neuts (auto) Absolute Lymphs (auto) Absolute Monos (auto) Absolute Eos (auto) Absolute Basos (auto) Absolute Nucleated RBC Nucleated RBC % Sodium Potassium Chloride Carbon Dioxide Anion Gap BUN Creatinine Est GFR ( Amer) Est GFR (Non-Af Amer) BUN/Creatinine Ratio Glucose POC Glucose (mg/dL) 160 H 143 H 131 H Glucose Meter Confirm Calcium Magnesium 03/15/18 03/15/18 06:34 06:34 WBC 13.2 H RBC 3.86 L Hgb 10.9 L Hct 33 L MCV 85 MCH 28 MCHC 33 RDW 16 H Plt Count 296 MPV 7.9 Neut % (Auto) 89.4 Lymph % (Auto) 4.4 [place] % (Auto) 4.5 Eos % (Auto) 0.7 Baso % (Auto) 1.0 Absolute Neuts (auto) 11.8 H Absolute Lymphs (auto) 0.6 L Absolute Monos (auto) 0.6 Absolute Eos (auto) 0.1 Absolute Basos (auto) 0.1 Absolute Nucleated RBC 0 Nucleated RBC % 0.1 Sodium 142 Potassium 4.3 Chloride 112 H Carbon Dioxide 24 Anion Gap 6 BUN 22 Creatinine 1.21 H Est GFR ( Amer) 68.3 Est GFR (Non-Af Amer) 56.5 BUN/Creatinine Ratio 18.2 Glucose 102 H POC Glucose (mg/dL) Glucose Meter Confirm Calcium 8.7 Magnesium 2.1 Microbiology and Other Data: Microbiology 03/01/18 14:50 Nasal Screen MRSA (PCR) - Final Nasal Mrsa Not Detected Assess/Plan/Problems-Billing Mr. 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 - Patient Problems (1) Acute systolic CHF (congestive heart failure) Current Visit: Yes Status: Acute Code(s): I50.21 - ACUTE SYSTOLIC ( CONGESTIVE) HEART FAILURE SNOMED Code(s): 365461072 Comment: -Edema UE, LE -Lasix 40 now -Restart Spironolactone at pt home dose -Hypokalemia and hypomag corrected yesterday; recheck BMP and Mg in a.m. (2) Ventricular tachycardia Comment: -Pt with likely NSTEMI post op as evidenced by EKG changes and reduced EF on echo. Continue ASA, plavix. LifeVest is in place. -Will need to follow up with cardiology after discharge. -Repeat BMP to ensure electrolytes are stable. -Spoke with cardiology, and recommended 200mg amiodare BID x2 weeks with follow up with Dr. Chaudhari within 1 week of discharge (3) Atrial fibrillation Comment: -Chronic afib with HR controlled per tele -Pt continues to refuse anticoagulation (4) CAD (coronary artery disease) Comment: -It is thought the patient had a MA post op -Continue ASA, plavix, metoprolol, and lipitor (5) Diabetes mellitus Comment: -Improved control -Continue to monitor FS as ordered (6) CKD (chronic kidney disease) stage 3, GFR 30-59 ml/min Comment: -Creatinine up some from baseline likely due to CHF exacerbation -Start IV Lasix -Restart Spironolactone tomorrow (7) HTN (hypertension) Comment: -BP WNL -Continue metoproloil, amlodipine -Added Spirinolactone at home dose (8) Tracheostomy in place Comment: -Continue tracheostomy education (9) Malnutrition Comment: -Pt is eating ok on soft diet (10) DVT prophylaxis Comment: -D/C Heparin (11) Full code status Comment: Status and Disposition: -Awaiting trach equipment; will await official eval from Dr. Stubbs
--- NOTE | 2018-03-28 19:29 | PN ---
Hospitalist Progress Note Called that pt is subjectively SOB and asking for frequent suctioning that is having some both fresh blood and blood clots. Dr. Stubbs plans to bronch but does not think this is cause of the SOB. Pt is clearly still volume overloaded with 3-4+ dependent edema. ECHO on 03/15 could not assess EF. Had been on lasix 40mg IV BID + metalozone until 2 days ago and has gotten lasix 40mg IV once each day since. Ordering CXR. another lasix 40mg IV now and ever q8h. Pt is of note wearing life vest. Sat'ing high 90s on trach blow by.
[2018-03-28] MEDS: Furosemide IV* 10 MG/ML VIAL (40 MG) IV SCH (20:28)
[2018-03-28] MEDS: Atorvastatin* 40 MG TAB NG TUBE SCH (20:28)
--- NOTE | 2018-03-28 23:13 | PN ---
PROGRESS NOTE: DATE OF SERVICE: 03/28/18 SUBJECTIVE: I was called by the floor nurse because the patient has been having some increasing shortness of breath and feeling he needs to suction himself all the time. There is a little blood around the stoma, which has been there for several days. I thought I should come in and take a look at him. I talked to Dr. Choudhary ahead of time that I did not think that this was related to the stoma or the little bit of blood and he was probably having some effusion or failure, but I thought I should come in and take a look and bronch him. PHYSICAL EXAMINATION: He has got some shortness of breath. His legs are edematous as are his arms. He has a little clotting around the stoma, which I cleaned up, but otherwise it is clear. I performed a bronchoscopy and he has got a tiny bit of blood in the left mainstem, probably from suctioning, but there is no clot or other obstructions responsible for his shortness of breath. He had had a chest x-ray just before I looked at and his lung bases were gordo out. ASSESSMENT AND PLAN: The patient has increasing shortness of breath which is not related to his surgery at this time. He is, I think, in failure and/or has some effusions that are forming. I spoke to Dr. Liriano and the nurses about this in Respiratory Therapy who came in to help as well. She was going to get the laryngectomy tube back in. Dr. Choudhary, I was told, ordered some Lasix. Dr. Liriano is covering for the night and I talked to him about this. He was going to confirm this, look at the chest x-ray, and treat appropriately. [id number]/[facility] #: [id number] [facility]
[2018-03-29] MEDS: Furosemide IV* 10 MG/ML VIAL (40 MG) IV SCH ×3 (03:34→19:40)
[2018-03-29 04:40] LABS: ABS Basophils 0.1 10^3/ul (0-0.2); ABS Eosinophils 0.1 10^3/ul (0-0.6); ABS Lymphocytes 0.5 10^3/ul (1.0-4.8); ABS Monocytes 0.7 10^3/ul (0-0.8); ABS Neutrophils 9.3 10^3/ul (1.5-7.7); ABS Nucleated RBC 0 10^3/ul; Eosinophil % 0.9 %; Hematocrit 31 % (42-52); Hemoglobin 10.4 g/dl (14.0-18.0); Lymphocyte % 4.7 %; Mean Corpuscular HGB Conc 33 g/dl (31-36); Mean Corpuscular Hemoglobin 29 pg (27-31); Mean Corpuscular Volume 87 fL (80-94); Mean Platelet Volume 7.9 fL (7.4-10.4); Nucleated Red Blood Cells % 0.1; Platelet Count 243 10^3/ul (150-450); Red Blood Count 3.58 10^6/ul (4.00-5.40); Red Cell Distribution Width 18 % (10.5-15); White Blood Count 10.7 10^3/ul (3.5-10.8)
[2018-03-29 04:57] LABS: BUN/Creatinine Ratio 25.3 (8-20); Calcium 9.4 mg/dL (8.6-10.3); EGFR African American 34.8 (>60); EGFR Non-African American 28.8 (>60); Magnesium 1.9 mg/dL (1.9-2.7); Potassium 3.5 mmol/L (3.5-5.0)
[2018-03-29] MEDS: Insulin LISPRO* 1 UNITS UNIT SUBCUT SCH ×4 (08:24→21:33)
[2018-03-29] MEDS: Metoprolol Tartrate TAB* 25 MG PO SCH ×2 (08:27→21:30)
[2018-03-29] MEDS: metFORMIN* 500 MG TAB PO SCH ×2 (08:29→17:38)
[2018-03-29] MEDS: Clopidogrel TAB* 75 MG PO SCH (08:29)
[2018-03-29] MEDS: Aspirin 81 mg CHEW TAB* 81 MG TAB.CHEW PO SCH (08:29)
[2018-03-29] MEDS: Spironolactone TAB* 25 MG PO SCH (08:29)
[2018-03-29] MEDS: Lactobacillus Acidophilus* 1 TAB PO SCH ×2 (08:30→21:31)
[2018-03-29] MEDS: Amiodarone TAB* 200 MG PO SCH ×2 (08:30→21:29)
[2018-03-29] MEDS: amLODIPine TAB* 5 MG PO SCH (08:31)
[2018-03-29] MEDS: Metolazone TAB* 5 MG PO SCH (08:31)
[2018-03-29] MEDS: Insulin GLARGINE(*) 1 UNITS UNIT SUBCUT SCH (14:21)
--- NOTE | 2018-03-29 15:39 | PN ---
Subjective Date of Service: 03/29/18 Interval History: Pt is anxious to go home, but is awaiting supplies for his laryngectomy. He states that he continues to be SOB and his legs are swollen and painful. CXR from yesterday shows b/l pleural effusions with atelectasis vs consolidation, and the patient has diffuse extremity edema. He is being treated with Lasix 40 q8h. He has no complaints, including no fever, cough, or pain in the calves. Pt uses a whiteboard, mouthing words, and shakes head to communicate. NOTE: VS HR of 35 is incorrect; Rate is 81 at time of examination. Family History: Unchanged from Admission Social History: Unchanged from Admission Past Medical History: Unchanged from Admission Objective Active Medications: Acetaminophen (Tylenol Adult Liq*) 650 mg PEG TUBE Q4H PRN PRN Reason: PAIN Last Admin: 03/14/18 08:00 Dose: 650 mg Al Hydrox/Mg Hydrox/Simethicone (Maalox Plus*) 30 ml NG TUBE Q6H PRN PRN Reason: DYSPEPSIA Last Admin: 03/15/18 10:16 Dose: 30 ml Amiodarone HCl (Cordarone Tab*) 400 mg PO 0900,2100 [facility] Last Admin: 03/29/18 08:30 Dose: 400 mg Amlodipine Besylate (Norvasc Tab*) 5 mg PO DAILY [facility] Last Admin: 03/29/18 08:31 Dose: 5 mg Aspirin (Aspirin 81 Mg Chew Tab*) 81 mg PO DAILY [facility] Last Admin: 03/29/18 08:29 Dose: 81 mg Atorvastatin Calcium (Lipitor*) 40 mg NG TUBE BEDTIME [facility] Last Admin: 03/28/18 20:28 Dose: 40 mg Clopidogrel Bisulfate (Plavix Tab*) 75 mg PO DAILY [facility] Last Admin: 03/29/18 08:29 Dose: 75 mg Furosemide (Lasix Iv*) 40 mg IV Q8H [facility] Last Admin: 03/29/18 12:32 Dose: 40 mg Heparin Sodium (Porcine) (Heparin Flush Picc/Ml/Cvc(*)) 1 - 3 ml FLUSH 0600, 1800 [facility]; Protocol Last Admin: 03/29/18 04:33 Dose: 1 ml Insulin Glargine (Lantus(*)) 10 units SUBCUT Q24H [facility] Last Admin: 03/29/18 14:21 Dose: 10 units Insulin Human Lispro (Humalog*) 0 units SUBCUT ACHS [facility]; Protocol Last Admin: 03/29/18 11:36 Dose: Not Given Lactobacillus Rhamnosus (Lactobacillus Acidophilus*) 1 tab PO BID [facility] Last Admin: 03/29/18 08:30 Dose: 1 tab Metformin HCl (Glucophage*) 500 mg PO 0800,1700 [facility] Last Admin: 03/29/18 08:29 Dose: 500 mg Metolazone (Zaroxolyn Tab*) 5 mg PO DAILY@0830 [facility] Last Admin: 03/29/18 08:31 Dose: 5 mg Metoprolol Tartrate (Lopressor Tab*) 12.5 mg PO Q12HR [facility] Last Admin: 03/29/18 08:27 Dose: 12.5 mg Ondansetron HCl (Zofran Inj*) 4 mg IV Q6H PRN PRN Reason: NAUSEA/VOMITING Last Admin: 03/17/18 12:01 Dose: 4 mg Spironolactone (Aldactone Tab*) 25 mg PO DAILY [facility] Last Admin: 03/29/18 08:29 Dose: 25 mg Vital Signs: Temp Pulse Resp BP Pulse Ox 97.0 F 35 20 123/57 100 03/29/18 11:27 03/29/18 11:27 03/29/18 11:27 03/29/18 11:27 03/29/18 11:27 Oxygen Devices in Use Now: Tracheostomy Tube Appearance: Pt is sitting in bed resting. He is in no acute distress. Eyes: No Scleral Icterus, PERRLA Ears/Nose/Mouth/Throat: NL Teeth, Lips, Gums, Clear Oropharnyx Neck: NL Appearance and Movements; NL JVP, Trachea Midline - Stoma is nonerythematous, without swelling or discharge; there is dried blood around stoma site. Respiratory: Symmetrical Chest Expansion and Respiratory Effort, Clear to Auscultation Cardiovascular: NL Sounds; No Murmurs; No JVD, RRR, - - Diffuse edema in LE; edema in UE at elbows. Abdominal: NL Sounds; No Tenderness; No Distention, No Hepatosplenomegaly Lymphatic: No Cervical Adenopathy Extremities: No Clubbing, Cyanosis, - - LE and UE edema. B/l LE are tender and 3+ edematous; Garrett's negative - Nutrition: Malnutrition Diagnosis/Plan Malnutrition Assessment by Registered Dietitian: Malnutrition Assessment Clinical Characteristics Acute,Moderate Malnutrition Assessment: - 6.1% wt loss in past one month Criteria - mild temporal muscle wasting - intake likely <75% EEE x 7 days Malnutrition Assessment: 1. follow [employer] re-evaluation of swallowing Interventions function; NPO at this time 2. follow for potential need for PEG placement 3. offer and begin po supplements when pt ready for some level of po intake Malnutrition Assessment: Goals 1. when safe for po intake, pt will tolerate least-restrictive diet texture without evidence of swallowing difficulty or aspiration 2. adequate po intake to maintain present wt and hydration status 3. achieve and maintain serum electrolytes within normal ranges 4. achieve and maintain regulation of bowel pattern; no constipation (or diarrhea) Result Diagrams: 03/30/18 04:25 03/30/18 04:25 Additional Lab and Data: Laboratory Results - last 24 hr 03/14/18 03/14/18 03/14/18 06:47 10:44 11:38 WBC RBC Hgb Hct MCV MCH MCHC RDW Plt Count MPV Neut % (Auto) Lymph % (Auto) [place] % (Auto) Eos % (Auto) Baso % (Auto) Absolute Neuts (auto) Absolute Lymphs (auto) Absolute Monos (auto) Absolute Eos (auto) Absolute Basos (auto) Absolute Nucleated RBC Nucleated RBC % Sodium Potassium Chloride Carbon Dioxide Anion Gap BUN Creatinine Est GFR ( Amer) Est GFR (Non-Af Amer) BUN/Creatinine Ratio Glucose POC Glucose (mg/dL) 441 H* Glucose Meter Confirm 160 H Calcium Magnesium 2.1 03/14/18 03/14/18 03/15/18 17:44 23:55 05:40 WBC RBC Hgb Hct MCV MCH MCHC RDW Plt Count MPV Neut % (Auto) Lymph % (Auto) [place] % (Auto) Eos % (Auto) Baso % (Auto) Absolute Neuts (auto) Absolute Lymphs (auto) Absolute Monos (auto) Absolute Eos (auto) Absolute Basos (auto) Absolute Nucleated RBC Nucleated RBC % Sodium Potassium Chloride Carbon Dioxide Anion Gap BUN Creatinine Est GFR ( Amer) Est GFR (Non-Af Amer) BUN/Creatinine Ratio Glucose POC Glucose (mg/dL) 160 H 143 H 131 H Glucose Meter Confirm Calcium Magnesium 03/15/18 03/15/18 06:34 06:34 WBC 13.2 H RBC 3.86 L Hgb 10.9 L Hct 33 L MCV 85 MCH 28 MCHC 33 RDW 16 H Plt Count 296 MPV 7.9 Neut % (Auto) 89.4 Lymph % (Auto) 4.4 [place] % (Auto) 4.5 Eos % (Auto) 0.7 Baso % (Auto) 1.0 Absolute Neuts (auto) 11.8 H Absolute Lymphs (auto) 0.6 L Absolute Monos (auto) 0.6 Absolute Eos (auto) 0.1 Absolute Basos (auto) 0.1 Absolute Nucleated RBC 0 Nucleated RBC % 0.1 Sodium 142 Potassium 4.3 Chloride 112 H Carbon Dioxide 24 Anion Gap 6 BUN 22 Creatinine 1.21 H Est GFR ( Amer) 68.3 Est GFR (Non-Af Amer) 56.5 BUN/Creatinine Ratio 18.2 Glucose 102 H POC Glucose (mg/dL) Glucose Meter Confirm Calcium 8.7 Magnesium 2.1 Microbiology and Other Data: Microbiology 03/01/18 14:50 Nasal Screen MRSA (PCR) - Final Nasal Mrsa Not Detected Assess/Plan/Problems-Billing Mr. 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 - Patient Problems (1) Acute systolic CHF (congestive heart failure) Comment: -Edema UE, LE; SOB; electrolytes WNL, Cr increased from baseline with BUN/Cr suggesting prerenal -Lasix 40 q8h started 03/28 evening and discontinued now; discontinue metolazone -Continue spironolactone at pt home dose -Continue to monitor edema, electrolytes, and need for lasix restart (2) Ventricular tachycardia Comment: -Pt with likely NSTEMI post op as evidenced by EKG changes and reduced EF on echo. Continue ASA, plavix. LifeVest is in place. -Will need to follow up with cardiology after discharge. -Spoke with cardiology, and recommended discharging pt on 200mg amiodare BID x2 weeks with follow up with Dr. Chaudhari within 1 week of discharge (3) Atrial fibrillation Comment: -Chronic afib with HR controlled per tele -Pt continues to refuse anticoagulation (4) CAD (coronary artery disease) Comment: -It is thought the patient had a [place] post op -Continue ASA, plavix, metoprolol, and lipitor (5) Diabetes mellitus Comment: -Improved control -Continue to monitor FS as ordered (6) CKD (chronic kidney disease) stage 3, GFR 30-59 ml/min Comment: -Creatinine up from baseline -D/c lasix and metolazone -Continue Spironolactone -Continue to monitor (7) HTN (hypertension) Comment: -BP WNL -Continue metoprolol, amlodipine -Added Spirinolactone at home dose (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 Stubbs
[2018-03-29] MEDS: Atorvastatin* 40 MG TAB NG TUBE SCH (21:31)
[2018-03-30] MEDS: Furosemide IV* 10 MG/ML VIAL (40 MG) IV SCH ×2 (04:21→11:54)
[2018-03-30 04:36] LABS: ABS Basophils 0 10^3/ul (0-0.2); ABS Eosinophils 0.2 10^3/ul (0-0.6); ABS Lymphocytes 0.5 10^3/ul (1.0-4.8); ABS Monocytes 0.7 10^3/ul (0-0.8); ABS Neutrophils 8.7 10^3/ul (1.5-7.7); ABS Nucleated RBC 0 10^3/ul; Eosinophil % 1.7 %; Hematocrit 30 % (42-52); Hemoglobin 10.3 g/dl (14.0-18.0); Lymphocyte % 5.1 %; Mean Corpuscular HGB Conc 34 g/dl (31-36); Mean Corpuscular Hemoglobin 30 pg (27-31); Mean Corpuscular Volume 87 fL (80-94); Mean Platelet Volume 7.5 fL (7.4-10.4); Nucleated Red Blood Cells % 0; Platelet Count 227 10^3/ul (150-450); Red Blood Count 3.48 10^6/ul (4.00-5.40); Red Cell Distribution Width 18 % (10.5-15); White Blood Count 10.1 10^3/ul (3.5-10.8)
[2018-03-30 04:50] LABS: BUN/Creatinine Ratio 25.6 (8-20); Calcium 9.3 mg/dL (8.6-10.3); EGFR African American 33.7 (>60); EGFR Non-African American 27.9 (>60); Potassium 3.7 mmol/L (3.5-5.0)
[2018-03-30] MEDS: Insulin LISPRO* 1 UNITS UNIT SUBCUT SCH ×4 (07:36→21:53)
[2018-03-30] MEDS: metFORMIN* 500 MG TAB PO SCH ×2 (08:08→17:09)
[2018-03-30] MEDS: amLODIPine TAB* 5 MG PO SCH (08:08)
[2018-03-30] MEDS: Aspirin 81 mg CHEW TAB* 81 MG TAB.CHEW PO SCH (08:08)
[2018-03-30] MEDS: Spironolactone TAB* 25 MG PO SCH (08:08)
[2018-03-30] MEDS: Clopidogrel TAB* 75 MG PO SCH (08:08)
[2018-03-30] MEDS: Metoprolol Tartrate TAB* 25 MG PO SCH ×2 (08:08→21:22)
[2018-03-30] MEDS: Amiodarone TAB* 200 MG PO SCH ×2 (08:08→21:21)
[2018-03-30] MEDS: Metolazone TAB* 5 MG PO SCH (08:08)
[2018-03-30] MEDS: Lactobacillus Acidophilus* 1 TAB PO SCH ×2 (08:08→21:21)
[2018-03-30] MEDS: Insulin GLARGINE(*) 1 UNITS UNIT SUBCUT SCH (13:30)
--- NOTE | 2018-03-30 15:48 | PN ---
Subjective Date of Service: 03/30/18 Interval History: Pt noverbal and communicates with mouthing words, shaking head, and whiteboard. He states that he is feeling well today. He denies CP, SOB, fever, abd pain, n/v/d/c. He c/o increased urination, which is likely due to lasix 40 q8 since 03/28. He also c/o cough, as he feels there is something lodged in his throat that he needs to clear often. He states that he has been eating and drinking well. He continues to work with respiratory therapy for care of tracheostomy. He states that he has not been ambulating well, as he is having pain in his b/l LE from edema. Family History: Unchanged from Admission Social History: Unchanged from Admission Past Medical History: Unchanged from Admission Objective Active Medications: Acetaminophen (Tylenol Adult Liq*) 650 mg PEG TUBE Q4H PRN PRN Reason: PAIN Last Admin: 03/14/18 08:00 Dose: 650 mg Al Hydrox/Mg Hydrox/Simethicone (Maalox Plus*) 30 ml NG TUBE Q6H PRN PRN Reason: DYSPEPSIA Last Admin: 03/15/18 10:16 Dose: 30 ml Amiodarone HCl (Cordarone Tab*) 400 mg PO 0900,2100 [facility] Last Admin: 03/30/18 08:08 Dose: 400 mg Amlodipine Besylate (Norvasc Tab*) 5 mg PO DAILY [facility] Last Admin: 03/30/18 08:08 Dose: 5 mg Aspirin (Aspirin 81 Mg Chew Tab*) 81 mg PO DAILY [facility] Last Admin: 03/30/18 08:08 Dose: 81 mg Atorvastatin Calcium (Lipitor*) 40 mg NG TUBE BEDTIME [facility] Last Admin: 03/29/18 21:31 Dose: 40 mg Clopidogrel Bisulfate (Plavix Tab*) 75 mg PO DAILY [facility] Last Admin: 03/30/18 08:08 Dose: 75 mg Furosemide (Lasix Iv*) 40 mg IV Q8H [facility] Last Admin: 03/30/18 11:54 Dose: 40 mg Heparin Sodium (Porcine) (Heparin Flush Picc/Ml/Cvc(*)) 1 - 3 ml FLUSH 0600, 1800 [facility]; Protocol Last Admin: 03/30/18 04:24 Dose: 3 ml Insulin Glargine (Lantus(*)) 10 units SUBCUT Q24H [facility] Last Admin: 03/30/18 13:30 Dose: 10 units Insulin Human Lispro (Humalog*) 0 units SUBCUT ACHS [facility]; Protocol Last Admin: 03/30/18 11:54 Dose: 1 units Lactobacillus Rhamnosus (Lactobacillus Acidophilus*) 1 tab PO BID [facility] Last Admin: 03/30/18 08:08 Dose: 1 tab Metformin HCl (Glucophage*) 500 mg PO 0800,1700 [facility] Last Admin: 03/30/18 08:08 Dose: 500 mg Metolazone (Zaroxolyn Tab*) 5 mg PO DAILY@0830 [facility] Last Admin: 03/30/18 08:08 Dose: 5 mg Metoprolol Tartrate (Lopressor Tab*) 12.5 mg PO Q12HR [facility] Last Admin: 03/30/18 08:08 Dose: 12.5 mg Ondansetron HCl (Zofran Inj*) 4 mg IV Q6H PRN PRN Reason: NAUSEA/VOMITING Last Admin: 03/17/18 12:01 Dose: 4 mg Spironolactone (Aldactone Tab*) 25 mg PO DAILY [facility] Last Admin: 03/30/18 08:08 Dose: 25 mg Vital Signs: Temp Pulse Resp BP Pulse Ox 97.5 F 89 18 133/70 100 03/30/18 07:27 03/30/18 07:27 03/30/18 07:27 03/30/18 07:27 03/30/18 07:27 Oxygen Devices in Use Now: Tracheostomy Collar Appearance: Pt is sitting at edge of bed with legs hanging down. He appears well and is in no acute distress. Eyes: No Scleral Icterus, PERRLA Ears/Nose/Mouth/Throat: NL Teeth, Lips, Gums, Clear Oropharnyx, Mucous Membranes Moist Neck: NL Appearance and Movements; NL JVP, Trachea Midline, No Thyroid Enlargement, Masses, - - Stoma in place without erythema or exudates. There is very scant amounts of dried blood around the entrance. Respiratory: Symmetrical Chest Expansion and Respiratory Effort, Clear to Auscultation Cardiovascular: NL Sounds; No Murmurs; No JVD Abdominal: NL Sounds; No Tenderness; No Distention, No Hepatosplenomegaly Extremities: No Clubbing, Cyanosis, - - Edema in all extremities. UE with edema about the elbow. B/l LE with 3+ pitting edema that seems decreased from yesterday. Neurological: Alert and Oriented x 3 - Nutrition: Malnutrition Diagnosis/Plan Malnutrition Assessment by Registered Dietitian: Malnutrition Assessment Clinical Characteristics Acute,Moderate Malnutrition Assessment: - 6.1% wt loss in past one month Criteria - mild temporal muscle wasting - intake likely <75% EEE x 7 days Malnutrition Assessment: 1. follow [employer] re-evaluation of swallowing Interventions function; NPO at this time 2. follow for potential need for PEG placement 3. offer and begin po supplements when pt ready for some level of po intake Malnutrition Assessment: Goals 1. when safe for po intake, pt will tolerate least-restrictive diet texture without evidence of swallowing difficulty or aspiration 2. adequate po intake to maintain present wt and hydration status 3. achieve and maintain serum electrolytes within normal ranges 4. achieve and maintain regulation of bowel pattern; no constipation (or diarrhea) Result Diagrams: 03/30/18 04:25 03/30/18 04:25 Additional Lab and Data: Laboratory Results - last 24 hr 03/14/18 03/14/18 03/14/18 06:47 10:44 11:38 WBC RBC Hgb Hct MCV MCH MCHC RDW Plt Count MPV Neut % (Auto) Lymph % (Auto) [place] % (Auto) Eos % (Auto) Baso % (Auto) Absolute Neuts (auto) Absolute Lymphs (auto) Absolute Monos (auto) Absolute Eos (auto) Absolute Basos (auto) Absolute Nucleated RBC Nucleated RBC % Sodium Potassium Chloride Carbon Dioxide Anion Gap BUN Creatinine Est GFR ( Amer) Est GFR (Non-Af Amer) BUN/Creatinine Ratio Glucose POC Glucose (mg/dL) 441 H* Glucose Meter Confirm 160 H Calcium Magnesium 2.1 03/14/18 03/14/18 03/15/18 17:44 23:55 05:40 WBC RBC Hgb Hct MCV MCH MCHC RDW Plt Count MPV Neut % (Auto) Lymph % (Auto) [place] % (Auto) Eos % (Auto) Baso % (Auto) Absolute Neuts (auto) Absolute Lymphs (auto) Absolute Monos (auto) Absolute Eos (auto) Absolute Basos (auto) Absolute Nucleated RBC Nucleated RBC % Sodium Potassium Chloride Carbon Dioxide Anion Gap BUN Creatinine Est GFR ( Amer) Est GFR (Non-Af Amer) BUN/Creatinine Ratio Glucose POC Glucose (mg/dL) 160 H 143 H 131 H Glucose Meter Confirm Calcium Magnesium 03/15/18 03/15/18 06:34 06:34 WBC 13.2 H RBC 3.86 L Hgb 10.9 L Hct 33 L MCV 85 MCH 28 MCHC 33 RDW 16 H Plt Count 296 MPV 7.9 Neut % (Auto) 89.4 Lymph % (Auto) 4.4 [place] % (Auto) 4.5 Eos % (Auto) 0.7 Baso % (Auto) 1.0 Absolute Neuts (auto) 11.8 H Absolute Lymphs (auto) 0.6 L Absolute Monos (auto) 0.6 Absolute Eos (auto) 0.1 Absolute Basos (auto) 0.1 Absolute Nucleated RBC 0 Nucleated RBC % 0.1 Sodium 142 Potassium 4.3 Chloride 112 H Carbon Dioxide 24 Anion Gap 6 BUN 22 Creatinine 1.21 H Est GFR ( Amer) 68.3 Est GFR (Non-Af Amer) 56.5 BUN/Creatinine Ratio 18.2 Glucose 102 H POC Glucose (mg/dL) Glucose Meter Confirm Calcium 8.7 Magnesium 2.1 Microbiology and Other Data: Microbiology 03/01/18 14:50 Nasal Screen MRSA (PCR) - Final Nasal Mrsa Not Detected Assess/Plan/Problems-Billing Mr. 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 - Patient Problems (1) Acute systolic CHF (congestive heart failure) Comment: -Edema UE, LE; SOB; electrolytes WNL, Cr increased from baseline with BUN/Cr suggesting prerenal -Lasix 40 q8h started 03/28 evening and discontinued now; discontinue metolazone -Continue spironolactone at pt home dose -Continue to monitor edema, electrolytes, and need for lasix restart (2) Ventricular tachycardia Comment: -Pt with likely NSTEMI post op as evidenced by EKG changes and reduced EF on echo. Continue ASA, plavix. LifeVest is in place. -Will need to follow up with cardiology after discharge. -Spoke with cardiology, and recommended discharging pt on 200mg amiodare BID x2 weeks with follow up with Dr. Chaudhari within 1 week of discharge (3) Atrial fibrillation Comment: -Chronic afib with HR controlled per tele -Pt continues to refuse anticoagulation (4) CAD (coronary artery disease) Comment: -It is thought the patient had a [place] post op -Continue ASA, plavix, metoprolol, and lipitor (5) Diabetes mellitus Comment: -Improved control -Continue to monitor FS as ordered (6) CKD (chronic kidney disease) stage 3, GFR 30-59 ml/min Comment: -Creatinine up from baseline -D/c lasix and metolazone -Continue Spironolactone -Continue to monitor (7) HTN (hypertension) Comment: -BP WNL -Continue metoprolol, amlodipine -Added Spirinolactone at home dose (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 Stubbs
[2018-03-30] MEDS: Atorvastatin* 40 MG TAB NG TUBE SCH (21:22)
[2018-03-31] MEDS: Insulin LISPRO* 1 UNITS UNIT SUBCUT SCH ×4 (07:38→20:01)
[2018-03-31 08:03] LABS: BUN/Creatinine Ratio 25.9 (8-20); Calcium 9.1 mg/dL (8.6-10.3); EGFR Non-African American 28.9 (>60); Potassium 3.7 mmol/L (3.5-5.0)
[2018-03-31] MEDS: amLODIPine TAB* 5 MG PO SCH (08:46)
[2018-03-31] MEDS: Spironolactone TAB* 25 MG PO SCH (08:46)
[2018-03-31] MEDS: Lactobacillus Acidophilus* 1 TAB PO SCH ×2 (08:46→20:01)
[2018-03-31] MEDS: Amiodarone TAB* 200 MG PO SCH ×2 (08:46→20:01)
[2018-03-31] MEDS: Clopidogrel TAB* 75 MG PO SCH (08:46)
[2018-03-31] MEDS: Aspirin 81 mg CHEW TAB* 81 MG TAB.CHEW PO SCH (08:47)
[2018-03-31] MEDS: Metoprolol Tartrate TAB* 25 MG PO SCH ×2 (08:47→20:00)
[2018-03-31] MEDS: metFORMIN* 500 MG TAB PO SCH ×2 (08:47→17:17)
[2018-03-31] MEDS: Insulin GLARGINE(*) 1 UNITS UNIT SUBCUT SCH (12:12)
--- NOTE | 2018-03-31 13:55 | PN ---
Subjective Date of Service: 03/31/18 Interval History: Pt is doing ok. He denies CP, SOB, but continues to c/o cough. He denies abd pain, n/v/d. He continues to have pain in b/l LE due to edema. The edema in the UE has decreased a little. He states that he continues to eat and drink well. He plans to take a walk this afternoon. Mr. Maher's BS have been dipping in the evenings over the last two nights with a low of 79. Nursing staff have been giving him snacks before bed to avoid hypoglycemia. The pt denies s/s of low blood sugar in the evening. Family History: Unchanged from Admission Social History: Unchanged from Admission Past Medical History: Unchanged from Admission Objective Active Medications: Acetaminophen (Tylenol Adult Liq*) 650 mg PEG TUBE Q4H PRN PRN Reason: PAIN Last Admin: 03/14/18 08:00 Dose: 650 mg Al Hydrox/Mg Hydrox/Simethicone (Maalox Plus*) 30 ml NG TUBE Q6H PRN PRN Reason: DYSPEPSIA Last Admin: 03/15/18 10:16 Dose: 30 ml Amiodarone HCl (Cordarone Tab*) 400 mg PO 0900,2100 [facility] Last Admin: 03/31/18 08:46 Dose: 400 mg Amlodipine Besylate (Norvasc Tab*) 5 mg PO DAILY [facility] Last Admin: 03/31/18 08:46 Dose: 5 mg Aspirin (Aspirin 81 Mg Chew Tab*) 81 mg PO DAILY [facility] Last Admin: 03/31/18 08:47 Dose: 81 mg Atorvastatin Calcium (Lipitor*) 40 mg NG TUBE BEDTIME [facility] Last Admin: 03/30/18 21:22 Dose: 40 mg Clopidogrel Bisulfate (Plavix Tab*) 75 mg PO DAILY [facility] Last Admin: 03/31/18 08:46 Dose: 75 mg Heparin Sodium (Porcine) (Heparin Flush Picc/Ml/Cvc(*)) 1 - 3 ml FLUSH 0600, 1800 [facility]; Protocol Last Admin: 03/31/18 05:24 Dose: 3 ml Insulin Glargine (Lantus(*)) 8 units SUBCUT Q24H [facility] Last Admin: 03/31/18 12:12 Dose: 8 units Insulin Human Lispro (Humalog*) 0 units SUBCUT ACHS [facility]; Protocol Last Admin: 03/31/18 11:34 Dose: Not Given Lactobacillus Rhamnosus (Lactobacillus Acidophilus*) 1 tab PO BID [facility] Last Admin: 03/31/18 08:46 Dose: 1 tab Metformin HCl (Glucophage*) 500 mg PO 0800,1700 [facility] Last Admin: 03/31/18 08:47 Dose: 500 mg Metoprolol Tartrate (Lopressor Tab*) 12.5 mg PO Q12HR [facility] Last Admin: 03/31/18 08:47 Dose: 12.5 mg Ondansetron HCl (Zofran Inj*) 4 mg IV Q6H PRN PRN Reason: NAUSEA/VOMITING Last Admin: 03/17/18 12:01 Dose: 4 mg Spironolactone (Aldactone Tab*) 25 mg PO DAILY [facility] Last Admin: 03/31/18 08:46 Dose: 25 mg Vital Signs: Temp Pulse Resp BP Pulse Ox 97.6 F 69 20 121/51 97 03/31/18 11:11 03/31/18 11:11 03/31/18 11:11 03/31/18 11:11 03/31/18 11:11 Oxygen Devices in Use Now: Tracheostomy Collar Appearance: Pt is sitting up in bed. He is in no acute distress. Eyes: No Scleral Icterus, PERRLA Ears/Nose/Mouth/Throat: NL Teeth, Lips, Gums, Clear Oropharnyx, Mucous Membranes Moist Neck: NL Appearance and Movements; NL JVP, Trachea Midline, - - Stoma intact, nonerythematous Respiratory: Symmetrical Chest Expansion and Respiratory Effort, Clear to Auscultation Cardiovascular: NL Sounds; No Murmurs; No JVD, - - Irregular rhythm, rate controlled Abdominal: NL Sounds; No Tenderness; No Distention, No Hepatosplenomegaly Extremities: No Clubbing, Cyanosis, - - UE edema about the elbows that appears to have decreased; LE edema is 3+ pitting Neurological: Alert and Oriented x 3 - Nutrition: Malnutrition Diagnosis/Plan Malnutrition Assessment by Registered Dietitian: Malnutrition Assessment Clinical Characteristics Acute,Moderate Malnutrition Assessment: - 6.1% wt loss in past one month Criteria - mild temporal muscle wasting - intake likely <75% EEE x 7 days Malnutrition Assessment: 1. follow [employer] re-evaluation of swallowing Interventions function; NPO at this time 2. follow for potential need for PEG placement 3. offer and begin po supplements when pt ready for some level of po intake Malnutrition Assessment: Goals 1. when safe for po intake, pt will tolerate least-restrictive diet texture without evidence of swallowing difficulty or aspiration 2. adequate po intake to maintain present wt and hydration status 3. achieve and maintain serum electrolytes within normal ranges 4. achieve and maintain regulation of bowel pattern; no constipation (or diarrhea) Result Diagrams: 03/30/18 04:25 03/31/18 07:35 Additional Lab and Data: Laboratory Results - last 24 hr 03/14/18 03/14/18 03/14/18 06:47 10:44 11:38 WBC RBC Hgb Hct MCV MCH MCHC RDW Plt Count MPV Neut % (Auto) Lymph % (Auto) [place] % (Auto) Eos % (Auto) Baso % (Auto) Absolute Neuts (auto) Absolute Lymphs (auto) Absolute Monos (auto) Absolute Eos (auto) Absolute Basos (auto) Absolute Nucleated RBC Nucleated RBC % Sodium Potassium Chloride Carbon Dioxide Anion Gap BUN Creatinine Est GFR ( Amer) Est GFR (Non-Af Amer) BUN/Creatinine Ratio Glucose POC Glucose (mg/dL) 441 H* Glucose Meter Confirm 160 H Calcium Magnesium 2.1 03/14/18 03/14/18 03/15/18 17:44 23:55 05:40 WBC RBC Hgb Hct MCV MCH MCHC RDW Plt Count MPV Neut % (Auto) Lymph % (Auto) [place] % (Auto) Eos % (Auto) Baso % (Auto) Absolute Neuts (auto) Absolute Lymphs (auto) Absolute Monos (auto) Absolute Eos (auto) Absolute Basos (auto) Absolute Nucleated RBC Nucleated RBC % Sodium Potassium Chloride Carbon Dioxide Anion Gap BUN Creatinine Est GFR ( Amer) Est GFR (Non-Af Amer) BUN/Creatinine Ratio Glucose POC Glucose (mg/dL) 160 H 143 H 131 H Glucose Meter Confirm Calcium Magnesium 03/15/18 03/15/18 06:34 06:34 WBC 13.2 H RBC 3.86 L Hgb 10.9 L Hct 33 L MCV 85 MCH 28 MCHC 33 RDW 16 H Plt Count 296 MPV 7.9 Neut % (Auto) 89.4 Lymph % (Auto) 4.4 [place] % (Auto) 4.5 Eos % (Auto) 0.7 Baso % (Auto) 1.0 Absolute Neuts (auto) 11.8 H Absolute Lymphs (auto) 0.6 L Absolute Monos (auto) 0.6 Absolute Eos (auto) 0.1 Absolute Basos (auto) 0.1 Absolute Nucleated RBC 0 Nucleated RBC % 0.1 Sodium 142 Potassium 4.3 Chloride 112 H Carbon Dioxide 24 Anion Gap 6 BUN 22 Creatinine 1.21 H Est GFR ( Amer) 68.3 Est GFR (Non-Af Amer) 56.5 BUN/Creatinine Ratio 18.2 Glucose 102 H POC Glucose (mg/dL) Glucose Meter Confirm Calcium 8.7 Magnesium 2.1 Microbiology and Other Data: Microbiology 03/01/18 14:50 Nasal Screen MRSA (PCR) - Final Nasal Mrsa Not Detected Assess/Plan/Problems-Billing Mr. 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 - Patient Problems (1) Acute systolic CHF (congestive heart failure) Comment: -Edema UE, LE; Cr decreased since d/c IV Lasix -Lasix 40 q8h started 03/28 evening and discontinued now; discontinue metolazone -Continue spironolactone at pt home dose -Continue to monitor edema, electrolytes, and need for lasix restart -Repeat CXR today (2) Diabetes mellitus Comment: -Improved control, although BS as low as 79 overnight, requiring snack to keep from hypoglycemia -Decrease glargine to 8U -Continue to monitor FS as ordered (3) Ventricular tachycardia Comment: -Pt with likely NSTEMI post op as evidenced by EKG changes and reduced EF on echo. Continue ASA, plavix. LifeVest is in place. -Will need to follow up with cardiology after discharge. -Spoke with cardiology, and recommended discharging pt on 200mg amiodare BID x2 weeks with follow up with Dr. Chaudhari within 1 week of discharge (4) CAD (coronary artery disease) Comment: -It is thought the patient had a SD post op -Continue ASA, plavix, metoprolol, and lipitor (5) Atrial fibrillation Comment: -Chronic afib with HR controlled per tele -Pt continues to refuse anticoagulation (6) CKD (chronic kidney disease) stage 3, GFR 30-59 ml/min Comment: -Creatinine up from baseline -D/c lasix and metolazone -Continue Spironolactone -Continue to monitor (7) HTN (hypertension) Comment: -BP WNL -Continue metoprolol, amlodipine -Added Spirinolactone at home dose (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 Stubbs
[2018-03-31] MEDS: Atorvastatin* 40 MG TAB NG TUBE SCH (20:01)
[2018-03-31] MEDS: Ondansetron INJ* 2 MG/ML VIAL IV PRN (20:51)
[2018-04-01 04:37] LABS: ABS Basophils 0.2 10^3/ul (0-0.2); ABS Eosinophils 0.1 10^3/ul (0-0.6); ABS Lymphocytes 0.4 10^3/ul (1.0-4.8); ABS Monocytes 0.8 10^3/ul (0-0.8); ABS Neutrophils 12.3 10^3/ul (1.5-7.7); ABS Nucleated RBC 0 10^3/ul; Eosinophil % 0.5 %; Hematocrit 29 % (42-52); Hemoglobin 9.4 g/dl (14.0-18.0); Lymphocyte % 2.9 %; Mean Corpuscular HGB Conc 32 g/dl (31-36); Mean Corpuscular Hemoglobin 29 pg (27-31); Mean Corpuscular Volume 88 fL (80-94); Mean Platelet Volume 7.9 fL (7.4-10.4); Nucleated Red Blood Cells % 0; Platelet Count 193 10^3/ul (150-450); Red Blood Count 3.31 10^6/ul (4.00-5.40); Red Cell Distribution Width 18 % (10.5-15); White Blood Count 13.7 10^3/ul (3.5-10.8)
[2018-04-01 04:50] LABS: BUN/Creatinine Ratio 27.8 (8-20); Calcium 8.7 mg/dL (8.6-10.3); EGFR African American 29.3 (>60); EGFR Non-African American 24.2 (>60); Potassium 4.6 mmol/L (3.5-5.0)
[2018-04-01] MEDS: Insulin LISPRO* 1 UNITS UNIT SUBCUT SCH ×4 (07:40→20:36)
[2018-04-01] MEDS: Aspirin 81 mg CHEW TAB* 81 MG TAB.CHEW PO SCH (08:18)
[2018-04-01] MEDS: Lactobacillus Acidophilus* 1 TAB PO SCH ×2 (08:18→20:36)
[2018-04-01] MEDS: metFORMIN* 500 MG TAB PO SCH ×2 (08:19→17:08)
[2018-04-01] MEDS: Spironolactone TAB* 25 MG PO SCH (08:19)
[2018-04-01] MEDS: Metoprolol Tartrate TAB* 25 MG PO SCH ×2 (08:19→20:36)
[2018-04-01] MEDS: Clopidogrel TAB* 75 MG PO SCH (08:19)
[2018-04-01] MEDS: amLODIPine TAB* 5 MG PO SCH (08:19)
[2018-04-01] MEDS: Amiodarone TAB* 200 MG PO SCH ×2 (08:19→20:36)
[2018-04-01] MEDS: Insulin GLARGINE(*) 1 UNITS UNIT SUBCUT SCH (12:41)
--- NOTE | 2018-04-01 17:20 | PN ---
Subjective Date of Service: 04/01/18 Interval History: Pt is present today with and family friend. He continues to wait for arrival of equipment to go home. He continues to have b/l LE edema, although it appears to decrease daily. He also has UE edema that is also resolving. He states that he continues to have the feeling as if he has mucous or phlegm in his throat, which makes him feel SOB and causes him to cough. He feels that he needs to suction often, but has been encouraged not to do so too often to avoid irritating tissues and causing breathing. He continues to have bouts of bradycardia, and also had a 3 second pause today followed by bradycardia. He denies symptoms when this occurs. He continues to have Lifevest in place. Pt states that he has been eating and drinking ok. He has been trying to take daily walks. Family History: Unchanged from Admission Social History: Unchanged from Admission Past Medical History: Unchanged from Admission Objective Active Medications: Acetaminophen (Tylenol Adult Liq*) 650 mg PEG TUBE Q4H PRN PRN Reason: PAIN Last Admin: 03/14/18 08:00 Dose: 650 mg Al Hydrox/Mg Hydrox/Simethicone (Maalox Plus*) 30 ml NG TUBE Q6H PRN PRN Reason: DYSPEPSIA Last Admin: 03/15/18 10:16 Dose: 30 ml Amiodarone HCl (Cordarone Tab*) 400 mg PO 0900,2100 [facility] Last Admin: 04/01/18 08:19 Dose: 400 mg Amlodipine Besylate (Norvasc Tab*) 5 mg PO DAILY [facility] Last Admin: 04/01/18 08:19 Dose: 5 mg Aspirin (Aspirin 81 Mg Chew Tab*) 81 mg PO DAILY [facility] Last Admin: 04/01/18 08:18 Dose: 81 mg Atorvastatin Calcium (Lipitor*) 40 mg NG TUBE BEDTIME [facility] Last Admin: 03/31/18 20:01 Dose: 40 mg Clopidogrel Bisulfate (Plavix Tab*) 75 mg PO DAILY [facility] Last Admin: 04/01/18 08:19 Dose: 75 mg Heparin Sodium (Porcine) (Heparin Flush Picc/Ml/Cvc(*)) 1 - 3 ml FLUSH 0600, 1800 [facility]; Protocol Last Admin: 04/01/18 17:08 Dose: 1 ml Insulin Glargine (Lantus(*)) 8 units SUBCUT Q24H [facility] Last Admin: 04/01/18 12:41 Dose: 8 units Insulin Human Lispro (Humalog*) 0 units SUBCUT ACHS [facility]; Protocol Last Admin: 04/01/18 16:09 Dose: Not Given Lactobacillus Rhamnosus (Lactobacillus Acidophilus*) 1 tab PO BID [facility] Last Admin: 04/01/18 08:18 Dose: 1 tab Metformin HCl (Glucophage*) 500 mg PO 0800,1700 [facility] Last Admin: 04/01/18 17:08 Dose: 500 mg Metoprolol Tartrate (Lopressor Tab*) 12.5 mg PO Q12HR [facility] Last Admin: 04/01/18 08:19 Dose: 12.5 mg Ondansetron HCl (Zofran Inj*) 4 mg IV Q6H PRN PRN Reason: NAUSEA/VOMITING Last Admin: 03/31/18 20:51 Dose: 4 mg Spironolactone (Aldactone Tab*) 25 mg PO DAILY [facility] Last Admin: 04/01/18 08:19 Dose: 25 mg Vital Signs: Temp Pulse Resp BP Pulse Ox 98.2 F 65 18 120/39 100 04/01/18 15:32 04/01/18 15:32 04/01/18 15:32 04/01/18 15:32 04/01/18 15:32 Oxygen Devices in Use Now: Tracheostomy Collar Appearance: Pt is sitting at edge of bed. He is in no acute distress. Ears/Nose/Mouth/Throat: NL Teeth, Lips, Gums, Clear Oropharnyx, Mucous Membranes Moist Neck: NL Appearance and Movements; NL JVP, Trachea Midline, - - Stoma is clean and dry, no discharge or erythema Respiratory: Symmetrical Chest Expansion and Respiratory Effort, Clear to Auscultation Cardiovascular: NL Sounds; No Murmurs; No JVD, No Edema, - - Irregular; pt has a -fib, rate controlled Abdominal: NL Sounds; No Tenderness; No Distention, No Hepatosplenomegaly Extremities: No Clubbing, Cyanosis, - - UE edema; LE edema is 2+ pitting. Calves nontender to palpation. Neurological: Alert and Oriented x 3 - Nutrition: Malnutrition Diagnosis/Plan Malnutrition Assessment by Registered Dietitian: Malnutrition Assessment Clinical Characteristics Acute,Moderate Malnutrition Assessment: - 6.1% wt loss in past one month Criteria - mild temporal muscle wasting - intake likely <75% EEE x 7 days Malnutrition Assessment: 1. follow [employer] re-evaluation of swallowing Interventions function; NPO at this time 2. follow for potential need for PEG placement 3. offer and begin po supplements when pt ready for some level of po intake Malnutrition Assessment: Goals 1. when safe for po intake, pt will tolerate least-restrictive diet texture without evidence of swallowing difficulty or aspiration 2. adequate po intake to maintain present wt and hydration status 3. achieve and maintain serum electrolytes within normal ranges 4. achieve and maintain regulation of bowel pattern; no constipation (or diarrhea) Result Diagrams: 04/02/18 04:25 04/02/18 04:25 Additional Lab and Data: Laboratory Results - last 24 hr 03/14/18 03/14/18 03/14/18 06:47 10:44 11:38 WBC RBC Hgb Hct MCV MCH MCHC RDW Plt Count MPV Neut % (Auto) Lymph % (Auto) [place] % (Auto) Eos % (Auto) Baso % (Auto) Absolute Neuts (auto) Absolute Lymphs (auto) Absolute Monos (auto) Absolute Eos (auto) Absolute Basos (auto) Absolute Nucleated RBC Nucleated RBC % Sodium Potassium Chloride Carbon Dioxide Anion Gap BUN Creatinine Est GFR ( Amer) Est GFR (Non-Af Amer) BUN/Creatinine Ratio Glucose POC Glucose (mg/dL) 441 H* Glucose Meter Confirm 160 H Calcium Magnesium 2.1 03/14/18 03/14/18 03/15/18 17:44 23:55 05:40 WBC RBC Hgb Hct MCV MCH MCHC RDW Plt Count MPV Neut % (Auto) Lymph % (Auto) [place] % (Auto) Eos % (Auto) Baso % (Auto) Absolute Neuts (auto) Absolute Lymphs (auto) Absolute Monos (auto) Absolute Eos (auto) Absolute Basos (auto) Absolute Nucleated RBC Nucleated RBC % Sodium Potassium Chloride Carbon Dioxide Anion Gap BUN Creatinine Est GFR ( Amer) Est GFR (Non-Af Amer) BUN/Creatinine Ratio Glucose POC Glucose (mg/dL) 160 H 143 H 131 H Glucose Meter Confirm Calcium Magnesium 03/15/18 03/15/18 06:34 06:34 WBC 13.2 H RBC 3.86 L Hgb 10.9 L Hct 33 L MCV 85 MCH 28 MCHC 33 RDW 16 H Plt Count 296 MPV 7.9 Neut % (Auto) 89.4 Lymph % (Auto) 4.4 [place] % (Auto) 4.5 Eos % (Auto) 0.7 Baso % (Auto) 1.0 Absolute Neuts (auto) 11.8 H Absolute Lymphs (auto) 0.6 L Absolute Monos (auto) 0.6 Absolute Eos (auto) 0.1 Absolute Basos (auto) 0.1 Absolute Nucleated RBC 0 Nucleated RBC % 0.1 Sodium 142 Potassium 4.3 Chloride 112 H Carbon Dioxide 24 Anion Gap 6 BUN 22 Creatinine 1.21 H Est GFR ( Amer) 68.3 Est GFR (Non-Af Amer) 56.5 BUN/Creatinine Ratio 18.2 Glucose 102 H POC Glucose (mg/dL) Glucose Meter Confirm Calcium 8.7 Magnesium 2.1 Microbiology and Other Data: Microbiology 03/01/18 14:50 Nasal Screen MRSA (PCR) - Final Nasal Mrsa Not Detected Assess/Plan/Problems-Billing Mr. 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 - Patient Problems (1) Acute systolic CHF (congestive heart failure) Comment: -Edema UE, LE; Cr remains elevated above baseline -Lasix 40 q8h started 03/28 evening and discontinued now; discontinue metolazone -Continue spironolactone at pt home dose -Continue to monitor edema, electrolytes, and need for lasix restart -Repeat CXR yesterday shows pulmonary vascular congestion and interstitial edema (2) Diabetes mellitus Comment: -Improved control -Decrease glargine to 8U from 10 due to near-hypoglycemia at night -Continue to monitor FS as ordered (3) Ventricular tachycardia Comment: -Pt with likely NSTEMI post op as evidenced by EKG changes and reduced EF on echo. Continue ASA, plavix. LifeVest is in place. -Will need to follow up with cardiology after discharge. -Spoke with cardiology, and recommended discharging pt on 200mg amiodare BID x2 weeks with follow up with Dr. Chaudhari within 1 week of discharge (4) CAD (coronary artery disease) Comment: -It is thought the patient had a ID post op -Continue ASA, plavix, metoprolol, and lipitor (5) Atrial fibrillation Comment: -Chronic afib with HR controlled per tele -Pt continues to refuse anticoagulation (6) CKD (chronic kidney disease) stage 3, GFR 30-59 ml/min Comment: -Creatinine up from baseline -D/c lasix and metolazone -Continue Spironolactone -Continue to monitor (7) HTN (hypertension) Comment: -BP WNL -Continue metoprolol, amlodipine -Added Spirinolactone at home dose (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 Stubbs
[2018-04-01] MEDS: Ondansetron INJ* 2 MG/ML VIAL IV PRN (20:36)
[2018-04-01] MEDS: Atorvastatin* 40 MG TAB NG TUBE SCH (20:36)
[2018-04-02 04:39] LABS: ABS Basophils 0.1 10^3/ul (0-0.2); ABS Eosinophils 0.3 10^3/ul (0-0.6); ABS Lymphocytes 0.6 10^3/ul (1.0-4.8); ABS Monocytes 0.8 10^3/ul (0-0.8); ABS Neutrophils 9.1 10^3/ul (1.5-7.7); ABS Nucleated RBC 0 10^3/ul; Eosinophil % 2.6 %; Hematocrit 27 % (42-52); Hemoglobin 9.1 g/dl (14.0-18.0); Lymphocyte % 5.4 %; Mean Corpuscular HGB Conc 34 g/dl (31-36); Mean Corpuscular Hemoglobin 30 pg (27-31); Mean Corpuscular Volume 89 fL (80-94); Mean Platelet Volume 7.7 fL (7.4-10.4); Nucleated Red Blood Cells % 0; Platelet Count 181 10^3/ul (150-450); Red Blood Count 3.03 10^6/ul (4.00-5.40); Red Cell Distribution Width 19 % (10.5-15); White Blood Count 10.8 10^3/ul (3.5-10.8)
[2018-04-02 05:02] LABS: BUN/Creatinine Ratio 29.2 (8-20); Calcium 8.3 mg/dL (8.6-10.3); EGFR African American 28.6 (>60); EGFR Non-African American 23.7 (>60); Potassium 4.3 mmol/L (3.5-5.0)
[2018-04-02] MEDS: Metoprolol Tartrate TAB* 25 MG PO SCH ×2 (08:29→20:40)
[2018-04-02] MEDS: Aspirin 81 mg CHEW TAB* 81 MG TAB.CHEW PO SCH (08:30)
[2018-04-02] MEDS: amLODIPine TAB* 5 MG PO SCH (08:30)
[2018-04-02] MEDS: Amiodarone TAB* 200 MG PO SCH (08:30)
[2018-04-02] MEDS: Clopidogrel TAB* 75 MG PO SCH (08:30)
[2018-04-02] MEDS: Spironolactone TAB* 25 MG PO SCH (08:30)
[2018-04-02] MEDS: Insulin LISPRO* 1 UNITS UNIT SUBCUT SCH ×4 (08:30→19:56)
[2018-04-02] MEDS: Lactobacillus Acidophilus* 1 TAB PO SCH ×2 (08:30→20:40)
[2018-04-02] MEDS: metFORMIN* 500 MG TAB PO SCH ×2 (08:30→16:59)
[2018-04-02] MEDS: Insulin GLARGINE(*) 1 UNITS UNIT SUBCUT SCH (11:29)
[2018-04-02] MEDS: Atorvastatin* 40 MG TAB NG TUBE SCH (20:40)
--- NOTE | 2018-04-02 22:13 | PN ---
Subjective Date of Service: 04/02/18 Interval History: Patient reports he is ready to go home, denies shortness of breath. denies fever or chills . denies abd pain n/v/d/. Telemetry: Patient with several bradycardic episodes into the 30's -with 3 second pauses - patient asymptomatic , denies dizziness Family History: Unchanged from Admission Social History: Unchanged from Admission Past Medical History: Unchanged from Admission Objective Active Medications: Acetaminophen (Tylenol Adult Liq*) 650 mg PEG TUBE Q4H PRN PRN Reason: PAIN Last Admin: 03/14/18 08:00 Dose: 650 mg Al Hydrox/Mg Hydrox/Simethicone (Maalox Plus*) 30 ml NG TUBE Q6H PRN PRN Reason: DYSPEPSIA Last Admin: 03/15/18 10:16 Dose: 30 ml Amiodarone HCl (Cordarone Tab*) 200 mg PO 0900 [facility] Amlodipine Besylate (Norvasc Tab*) 5 mg PO DAILY [facility] Last Admin: 04/02/18 08:30 Dose: 5 mg Aspirin (Aspirin 81 Mg Chew Tab*) 81 mg PO DAILY [facility] Last Admin: 04/02/18 08:30 Dose: 81 mg Atorvastatin Calcium (Lipitor*) 40 mg NG TUBE BEDTIME [facility] Last Admin: 04/02/18 20:40 Dose: 40 mg Clopidogrel Bisulfate (Plavix Tab*) 75 mg PO DAILY [facility] Last Admin: 04/02/18 08:30 Dose: 75 mg Heparin Sodium (Porcine) (Heparin Flush Picc/Ml/Cvc(*)) 1 - 3 ml FLUSH 0600, 1800 [facility]; Protocol Last Admin: 04/02/18 16:58 Dose: 1 ml Insulin Glargine (Lantus(*)) 8 units SUBCUT Q24H [facility] Last Admin: 04/02/18 11:29 Dose: 8 units Insulin Human Lispro (Humalog*) 0 units SUBCUT ACHS [facility]; Protocol Last Admin: 04/02/18 19:56 Dose: Not Given Lactobacillus Rhamnosus (Lactobacillus Acidophilus*) 1 tab PO BID [facility] Last Admin: 04/02/18 20:40 Dose: 1 tab Metformin HCl (Glucophage*) 500 mg PO 0800,1700 [facility] Last Admin: 04/02/18 16:59 Dose: 500 mg Metoprolol Tartrate (Lopressor Tab*) 12.5 mg PO Q12HR [facility] Last Admin: 04/02/18 20:40 Dose: 12.5 mg Ondansetron HCl (Zofran Inj*) 4 mg IV Q6H PRN PRN Reason: NAUSEA/VOMITING Last Admin: 04/01/18 20:36 Dose: 4 mg Spironolactone (Aldactone Tab*) 25 mg PO DAILY [facility] Last Admin: 04/02/18 08:30 Dose: 25 mg Vital Signs - 8 hr 04/02/18 04/02/18 16:05 20:00 Temperature 97.6 F 97.8 F Pulse Rate 50 54 Respiratory 20 16 Rate Blood Pressure 134/43 137/55 (mmHg) O2 Sat by Pulse 100 100 Oximetry Oxygen Devices in Use Now: Tracheostomy Collar Appearance: appears comfortable sitting in the chair Eyes: No Scleral Icterus Ears/Nose/Mouth/Throat: Clear Oropharnyx, Mucous Membranes Moist Neck: NL Appearance and Movements; NL JVP, Trachea Midline Respiratory: Symmetrical Chest Expansion and Respiratory Effort, - - diminished t/o bilat Cardiovascular: NL Sounds; No Murmurs; No JVD Abdominal: NL Sounds; No Tenderness; No Distention Extremities: No Clubbing, Cyanosis, - - bilat lower ext with +2 pitting edema Skin: No Rash or Ulcers Neurological: Alert and Oriented x 3 Nutrition: Taking PO's - Nutrition: Malnutrition Diagnosis/Plan Malnutrition Assessment by Registered Dietitian: Malnutrition Assessment Clinical Characteristics Acute,Moderate Malnutrition Assessment: - 6.1% wt loss in past one month Criteria - mild temporal muscle wasting - intake likely <75% EEE x 7 days Malnutrition Assessment: 1. follow [employer] re-evaluation of swallowing Interventions function; NPO at this time 2. follow for potential need for PEG placement 3. offer and begin po supplements when pt ready for some level of po intake Malnutrition Assessment: Goals 1. when safe for po intake, pt will tolerate least-restrictive diet texture without evidence of swallowing difficulty or aspiration 2. adequate po intake to maintain present wt and hydration status 3. achieve and maintain serum electrolytes within normal ranges 4. achieve and maintain regulation of bowel pattern; no constipation (or diarrhea) Result Diagrams: 04/08/18 05:23 04/08/18 05:23 Additional Lab and Data: Laboratory Results - last 24 hr 03/14/18 03/14/18 03/14/18 06:47 10:44 11:38 WBC RBC Hgb Hct MCV MCH MCHC RDW Plt Count MPV Neut % (Auto) Lymph % (Auto) [place] % (Auto) Eos % (Auto) Baso % (Auto) Absolute Neuts (auto) Absolute Lymphs (auto) Absolute Monos (auto) Absolute Eos (auto) Absolute Basos (auto) Absolute Nucleated RBC Nucleated RBC % Sodium Potassium Chloride Carbon Dioxide Anion Gap BUN Creatinine Est GFR ( Amer) Est GFR (Non-Af Amer) BUN/Creatinine Ratio Glucose POC Glucose (mg/dL) 441 H* Glucose Meter Confirm 160 H Calcium Magnesium 2.1 03/14/18 03/14/18 03/15/18 17:44 23:55 05:40 WBC RBC Hgb Hct MCV MCH MCHC RDW Plt Count MPV Neut % (Auto) Lymph % (Auto) [place] % (Auto) Eos % (Auto) Baso % (Auto) Absolute Neuts (auto) Absolute Lymphs (auto) Absolute Monos (auto) Absolute Eos (auto) Absolute Basos (auto) Absolute Nucleated RBC Nucleated RBC % Sodium Potassium Chloride Carbon Dioxide Anion Gap BUN Creatinine Est GFR ( Amer) Est GFR (Non-Af Amer) BUN/Creatinine Ratio Glucose POC Glucose (mg/dL) 160 H 143 H 131 H Glucose Meter Confirm Calcium Magnesium 03/15/18 03/15/18 06:34 06:34 WBC 13.2 H RBC 3.86 L Hgb 10.9 L Hct 33 L MCV 85 MCH 28 MCHC 33 RDW 16 H Plt Count 296 MPV 7.9 Neut % (Auto) 89.4 Lymph % (Auto) 4.4 [place] % (Auto) 4.5 Eos % (Auto) 0.7 Baso % (Auto) 1.0 Absolute Neuts (auto) 11.8 H Absolute Lymphs (auto) 0.6 L Absolute Monos (auto) 0.6 Absolute Eos (auto) 0.1 Absolute Basos (auto) 0.1 Absolute Nucleated RBC 0 Nucleated RBC % 0.1 Sodium 142 Potassium 4.3 Chloride 112 H Carbon Dioxide 24 Anion Gap 6 BUN 22 Creatinine 1.21 H Est GFR ( Amer) 68.3 Est GFR (Non-Af Amer) 56.5 BUN/Creatinine Ratio 18.2 Glucose 102 H POC Glucose (mg/dL) Glucose Meter Confirm Calcium 8.7 Magnesium 2.1 Microbiology and Other Data: Microbiology 03/01/18 14:50 Nasal Screen MRSA (PCR) - Final Nasal Mrsa Not Detected Assess/Plan/Problems-Billing Mr. 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 - Patient Problems (1) Laryngeal cancer Current Visit: Yes Status: Acute Comment: - S/P tracheostomy and laryngectomy. There are concerns about trachostomy care and availability of supplies which have been holding up discharge. (2) Tracheostomy in place Current Visit: Yes Status: Acute Code(s): Z93.0 - TRACHEOSTOMY STATUS SNOMED Code(s): 547992080 Comment: -Continue tracheostomy education (3) Malnutrition Current Visit: Yes Status: Acute Code(s): E46 - UNSPECIFIED PROTEIN-CALORIE MALNUTRITION SNOMED Code(s): 31053815 Comment: -Pt is eating ok on soft diet (4) Ventricular tachycardia Current Visit: Yes Status: Acute Code(s): I47.2 - VENTRICULAR TACHYCARDIA SNOMED Code(s): 18177426 Comment: -Pt with likely NSTEMI post op as evidenced by EKG changes and reduced EF on echo. Continue ASA, plavix. LifeVest is in place. -Will need to follow up with cardiology after discharge- Dr. Chaudhari within 7 days after discharge - cardiology has initally recommended amiodarone 200mg BID x 2 weeks patient with bradycardia and 3 second pauses today- amiodarone decreased from 400mg bid to 200mg daily- need to confirm dose with cardiology tomorrow (5) CKD (chronic kidney disease) stage 3, GFR 30-59 ml/min Current Visit: Yes Status: Acute Code(s): N18.3 - CHRONIC KIDNEY DISEASE, STAGE 3 (MODERATE) SNOMED Code(s): 614505006 Comment: - creatinine up from baseline - will continue to monitor- may need to resume diuretics - Appears Euvolemic today without shortness of breath (6) Atrial fibrillation Current Visit: Yes Status: Chronic Code(s): I48.91 - UNSPECIFIED ATRIAL FIBRILLATION SNOMED Code(s): 78027042 Comment: -Chronic afib with HR controlled per tele -Pt continues to refuse anticoagulation (7) CAD (coronary artery disease) Current Visit: Yes Status: Chronic Code(s): I25.10 - ATHSCL HEART DISEASE OF [place] CORONARY ARTERY W/O ANG PCTRS SNOMED Code(s): 43386209 Comment: -It is thought the patient had a [place] post op -Continue ASA, plavix, metoprolol, Imdur and lipitor (8) Diabetes mellitus Current Visit: Yes Status: Chronic Code(s): E11.9 - TYPE 2 DIABETES MELLITUS WITHOUT COMPLICATIONS SNOMED Code(s): 81207938 Comment: -Improved control -Continue to monitor FS as ordered - Continue Lantus at 8 units (9) HTN (hypertension) Current Visit: Yes Status: Chronic Code(s): I10 - ESSENTIAL (PRIMARY) HYPERTENSION SNOMED Code(s): 97586111 Comment: -BP WNL -Continue metoprolol, amlodipine (10) DVT prophylaxis Current Visit: Yes Status: Acute Code(s): FOM9635 - SNOMED Code(s): 986914425 Comment: -SCD ordered (11) Full code status Current Visit: Yes Status: Acute Code(s): Z78.9 - OTHER SPECIFIED HEALTH STATUS SNOMED Code(s): 046325934 Comment: Status and Disposition: -Awaiting trach equipment
[2018-04-03] MEDS: Insulin LISPRO* 1 UNITS UNIT SUBCUT SCH ×4 (07:28→20:33)
[2018-04-03] MEDS: Lactobacillus Acidophilus* 1 TAB PO SCH ×2 (08:42→20:38)
[2018-04-03] MEDS: Aspirin 81 mg CHEW TAB* 81 MG TAB.CHEW PO SCH (08:42)
[2018-04-03] MEDS: metFORMIN* 500 MG TAB PO SCH ×2 (08:43→17:02)
[2018-04-03] MEDS: Clopidogrel TAB* 75 MG PO SCH (08:43)
[2018-04-03] MEDS: Spironolactone TAB* 25 MG PO SCH (08:43)
[2018-04-03] MEDS: Metoprolol Tartrate TAB* 25 MG PO SCH ×2 (08:48→20:38)
[2018-04-03] MEDS: Amiodarone TAB* 200 MG PO SCH (08:49)
[2018-04-03] MEDS: amLODIPine TAB* 5 MG PO SCH (08:49)
[2018-04-03] MEDS: Insulin GLARGINE(*) 1 UNITS UNIT SUBCUT SCH (12:03)
--- NOTE | 2018-04-03 13:33 | PN ---
Subjective Date of Service: 04/03/18 Interval History: Pt reports he is feeling better and hopes to go home soon. Denies CP/SOB. No fevers or chills. Family History: Unchanged from Admission Social History: Unchanged from Admission Past Medical History: Unchanged from Admission Objective Active Medications: Acetaminophen (Tylenol Adult Liq*) 650 mg PEG TUBE Q4H PRN PRN Reason: PAIN Last Admin: 03/14/18 08:00 Dose: 650 mg Al Hydrox/Mg Hydrox/Simethicone (Maalox Plus*) 30 ml NG TUBE Q6H PRN PRN Reason: DYSPEPSIA Last Admin: 03/15/18 10:16 Dose: 30 ml Amiodarone HCl (Cordarone Tab*) 200 mg PO 0900 [facility] Last Admin: 04/03/18 08:49 Dose: 200 mg Amlodipine Besylate (Norvasc Tab*) 5 mg PO DAILY [facility] Last Admin: 04/03/18 08:49 Dose: 5 mg Aspirin (Aspirin 81 Mg Chew Tab*) 81 mg PO DAILY [facility] Last Admin: 04/03/18 08:42 Dose: 81 mg Atorvastatin Calcium (Lipitor*) 40 mg NG TUBE BEDTIME [facility] Last Admin: 04/02/18 20:40 Dose: 40 mg Clopidogrel Bisulfate (Plavix Tab*) 75 mg PO DAILY [facility] Last Admin: 04/03/18 08:43 Dose: 75 mg Heparin Sodium (Porcine) (Heparin Flush Picc/Ml/Cvc(*)) 1 - 3 ml FLUSH 0600, 1800 [facility]; Protocol Last Admin: 04/03/18 05:15 Dose: 3 ml Insulin Glargine (Lantus(*)) 8 units SUBCUT Q24H [facility] Last Admin: 04/03/18 12:03 Dose: 8 units Insulin Human Lispro (Humalog*) 0 units SUBCUT ACHS [facility]; Protocol Last Admin: 04/03/18 12:03 Dose: 1 units Lactobacillus Rhamnosus (Lactobacillus Acidophilus*) 1 tab PO BID [facility] Last Admin: 04/03/18 08:42 Dose: 1 tab Metformin HCl (Glucophage*) 500 mg PO 0800,1700 [facility] Last Admin: 04/03/18 08:43 Dose: 500 mg Metoprolol Tartrate (Lopressor Tab*) 12.5 mg PO Q12HR [facility] Last Admin: 04/03/18 08:48 Dose: 12.5 mg Ondansetron HCl (Zofran Inj*) 4 mg IV Q6H PRN PRN Reason: NAUSEA/VOMITING Last Admin: 04/01/18 20:36 Dose: 4 mg Spironolactone (Aldactone Tab*) 25 mg PO DAILY [facility] Last Admin: 04/03/18 08:43 Dose: 25 mg Vital Signs - 8 hr 04/03/18 04/03/18 04/03/18 07:39 07:44 08:08 Temperature 97.0 F 97 F Pulse Rate 66 66 Respiratory 24 16 24 Rate Blood Pressure 136/56 136/56 (mmHg) O2 Sat by Pulse 100 100 Oximetry 04/03/18 04/03/18 08:46 11:03 Temperature 98.1 F 97.1 F Pulse Rate 77 76 Respiratory 20 20 Rate Blood Pressure 156/59 146/79 (mmHg) O2 Sat by Pulse 100 100 Oximetry Oxygen Devices in Use Now: Tracheostomy Collar Appearance: chronically ill male A+Ox3 in NAD Eyes: No Scleral Icterus, PERRLA Neck: - - s/p tracheostomy - healing Respiratory: Symmetrical Chest Expansion and Respiratory Effort, Clear to Auscultation Cardiovascular: NL Sounds; No Murmurs; No JVD, RRR, - - 2+ LE edema feet/ankles Abdominal: NL Sounds; No Tenderness; No Distention Lymphatic: No Cervical Adenopathy Skin: No Rash or Ulcers, No Nodules or Sclerosis Neurological: Alert and Oriented x 3, NL Sensation, NL Muscle Strength and Tone Lines/Tubes/Other Access: Clean, Dry and Intact Peripheral IV Nutrition: Taking PO's - Nutrition: Malnutrition Diagnosis/Plan Malnutrition Assessment by Registered Dietitian: Malnutrition Assessment Clinical Characteristics Acute,Moderate Malnutrition Assessment: - 6.1% wt loss in past one month Criteria - mild temporal muscle wasting - intake likely <75% EEE x 7 days Malnutrition Assessment: 1. follow DISCHARGE RN re-evaluation of swallowing Interventions function; NPO at this time 2. follow for potential need for PEG placement 3. offer and begin po supplements when pt ready for some level of po intake Malnutrition Assessment: Goals 1. when safe for po intake, pt will tolerate least-restrictive diet texture without evidence of swallowing difficulty or aspiration 2. adequate po intake to maintain present wt and hydration status 3. achieve and maintain serum electrolytes within normal ranges 4. achieve and maintain regulation of bowel pattern; no constipation (or diarrhea) Result Diagrams: 04/02/18 04:25 04/03/18 13:30 Additional Lab and Data: Laboratory Results - last 24 hr 03/14/18 03/14/18 03/14/18 06:47 10:44 11:38 WBC RBC Hgb Hct MCV MCH MCHC RDW Plt Count MPV Neut % (Auto) Lymph % (Auto) [place] % (Auto) Eos % (Auto) Baso % (Auto) Absolute Neuts (auto) Absolute Lymphs (auto) Absolute Monos (auto) Absolute Eos (auto) Absolute Basos (auto) Absolute Nucleated RBC Nucleated RBC % Sodium Potassium Chloride Carbon Dioxide Anion Gap BUN Creatinine Est GFR ( Amer) Est GFR (Non-Af Amer) BUN/Creatinine Ratio Glucose POC Glucose (mg/dL) 441 H* Glucose Meter Confirm 160 H Calcium Magnesium 2.1 03/14/18 03/14/18 03/15/18 17:44 23:55 05:40 WBC RBC Hgb Hct MCV MCH MCHC RDW Plt Count MPV Neut % (Auto) Lymph % (Auto) [place] % (Auto) Eos % (Auto) Baso % (Auto) Absolute Neuts (auto) Absolute Lymphs (auto) Absolute Monos (auto) Absolute Eos (auto) Absolute Basos (auto) Absolute Nucleated RBC Nucleated RBC % Sodium Potassium Chloride Carbon Dioxide Anion Gap BUN Creatinine Est GFR ( Amer) Est GFR (Non-Af Amer) BUN/Creatinine Ratio Glucose POC Glucose (mg/dL) 160 H 143 H 131 H Glucose Meter Confirm Calcium Magnesium 03/15/18 03/15/18 06:34 06:34 WBC 13.2 H RBC 3.86 L Hgb 10.9 L Hct 33 L MCV 85 MCH 28 MCHC 33 RDW 16 H Plt Count 296 MPV 7.9 Neut % (Auto) 89.4 Lymph % (Auto) 4.4 [place] % (Auto) 4.5 Eos % (Auto) 0.7 Baso % (Auto) 1.0 Absolute Neuts (auto) 11.8 H Absolute Lymphs (auto) 0.6 L Absolute Monos (auto) 0.6 Absolute Eos (auto) 0.1 Absolute Basos (auto) 0.1 Absolute Nucleated RBC 0 Nucleated RBC % 0.1 Sodium 142 Potassium 4.3 Chloride 112 H Carbon Dioxide 24 Anion Gap 6 BUN 22 Creatinine 1.21 H Est GFR ( Amer) 68.3 Est GFR (Non-Af Amer) 56.5 BUN/Creatinine Ratio 18.2 Glucose 102 H POC Glucose (mg/dL) Glucose Meter Confirm Calcium 8.7 Magnesium 2.1 Microbiology and Other Data: Microbiology 03/01/18 14:50 Nasal Screen MRSA (PCR) - Final Nasal Mrsa Not Detected Assess/Plan/Problems-Billing Mr. 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 - Patient Problems (1) Laryngeal cancer Comment: s/p tracheostomy and laryngectomy. Waiting for trach supplies (2) Cardiomyopathy Comment: - EF 30% - LE edema increased from baseline. - Discussed with cardiology - recommended to give a dose of lasix, restart Imdur - DC norvasc (3) CKD (chronic kidney disease) stage 3, GFR 30-59 ml/min Comment: -Creatinine up from baseline -DC Spironolactone due to eGFR -send urinalysis, urine sodium/creatinine to calculate FENA (4) Ventricular tachycardia Comment: -Pt with likely NSTEMI post op as evidenced by EKG changes and reduced EF on echo. Continue ASA, plavix. LifeVest is in place. -Will need to follow up with cardiology after discharge- Dr. Chaudhari within 7 days after discharge - amiodarone to 200 mg daily - (discussed with Dr. Leal) (5) CAD (coronary artery disease) Current Visit: Yes Comment: -It is thought the patient had a [place] post op -Continue ASA, plavix, metoprolol, and lipitor (6) Malnutrition Comment: -Pt is eating ok on soft diet (7) Atrial fibrillation Comment: -Chronic afib with HR controlled per tele -Pt continues to refuse anticoagulation (8) Diabetes mellitus Comment: -Improved control -Continue to monitor FS as ordered - Continue Lantus at 8 units (9) HTN (hypertension) Comment: -BP WNL -Continue metoprolol, amlodipine -DC home Spirinolactone d/t renal function and not recommend with eGFR <30 (10) DVT prophylaxis Comment: -SCD ordered (11) Full code status Comment: Status and Disposition: -Awaiting trach equipment, treating lower extremity edema
[2018-04-03] MEDS ORDERED: Furosemide IV* 10 MG/ML 2 ML VIAL (20 MG) IV ONE (13:56)
[2018-04-03 13:57] LABS: BUN/Creatinine Ratio 27.1 (8-20); Calcium 9.1 mg/dL (8.6-10.3); EGFR African American 35.4 (>60); EGFR Non-African American 29.2 (>60); Potassium 4.4 mmol/L (3.5-5.0)
[2018-04-03 15:17] LABS: Urine Appearance Clear; Urine Bacteria Absent (Absent); Urine Bilirubin Negative (Negative); Urine Blood Negative (Negative); Urine Color Yellow; Urine Glucose 1+(50 mg/dL) (Negative); Urine Ketones Negative (Negative); Urine Nitrite Negative (Negative); Urine Protein 1+(30 mg/dL) (Negative); Urine Red Blood Cell 1+(3-5/hpf) (Absent); Urine Specific Gravity 1.013 (1.010-1.030); Urine Urobilinogen Negative (Negative); Urine White Blood Cell Absent (Absent)
[2018-04-03] MEDS: Terazosin CAP* 1 MG PO SCH (20:37)
[2018-04-03] MEDS: Atorvastatin* 40 MG TAB NG TUBE SCH (20:38)
[2018-04-04 05:42] LABS: ABS Basophils 0 10^3/ul (0-0.2); ABS Eosinophils 0.3 10^3/ul (0-0.6); ABS Lymphocytes 0.4 10^3/ul (1.0-4.8); ABS Monocytes 0.6 10^3/ul (0-0.8); ABS Neutrophils 5.9 10^3/ul (1.5-7.7); ABS Nucleated RBC 0 10^3/ul; Eosinophil % 4.2 %; Hematocrit 27 % (42-52); Hemoglobin 9.2 g/dl (14.0-18.0); Lymphocyte % 6.2 %; Mean Corpuscular HGB Conc 34 g/dl (31-36); Mean Corpuscular Hemoglobin 30 pg (27-31); Mean Corpuscular Volume 89 fL (80-94); Mean Platelet Volume 7.6 fL (7.4-10.4); Nucleated Red Blood Cells % 0; Platelet Count 177 10^3/ul (150-450); Red Blood Count 3.05 10^6/ul (4.00-5.40); Red Cell Distribution Width 19 % (10.5-15); White Blood Count 7.3 10^3/ul (3.5-10.8)
[2018-04-04 06:38] LABS: Calcium 8.8 mg/dL (8.6-10.3); EGFR Non-African American 29.7 (>60); Potassium 4.2 mmol/L (3.5-5.0)
[2018-04-04] MEDS: Insulin LISPRO* 1 UNITS UNIT SUBCUT SCH ×4 (09:37→20:10)
[2018-04-04] MEDS: metFORMIN* 500 MG TAB PO SCH ×2 (09:41→16:45)
[2018-04-04] MEDS: Clopidogrel TAB* 75 MG PO SCH (09:41)
[2018-04-04] MEDS: Isosorbide Mononitrate ER TAB* 30 MG PO SCH (09:41)
[2018-04-04] MEDS: Aspirin 81 mg CHEW TAB* 81 MG TAB.CHEW PO SCH (09:41)
[2018-04-04] MEDS: Amiodarone TAB* 200 MG PO SCH (09:41)
[2018-04-04] MEDS: Lactobacillus Acidophilus* 1 TAB PO SCH ×2 (09:42→21:04)
[2018-04-04] MEDS: Metoprolol Tartrate TAB* 25 MG PO SCH ×2 (09:42→21:04)
--- NOTE | 2018-04-04 11:48 | PN ---
Subjective Date of Service: 04/04/18 Interval History: Patient reports he is feeling better today with less foot/ankle swelling. Hopes to go home soon - waiting for supplies. Niece at bedside. Family History: Unchanged from Admission Social History: Unchanged from Admission Past Medical History: Unchanged from Admission Objective Active Medications: Acetaminophen (Tylenol Adult Liq*) 650 mg PEG TUBE Q4H PRN PRN Reason: PAIN Last Admin: 03/14/18 08:00 Dose: 650 mg Al Hydrox/Mg Hydrox/Simethicone (Maalox Plus*) 30 ml NG TUBE Q6H PRN PRN Reason: DYSPEPSIA Last Admin: 03/15/18 10:16 Dose: 30 ml Amiodarone HCl (Cordarone Tab*) 200 mg PO 0900 [facility] Last Admin: 04/04/18 09:41 Dose: 200 mg Aspirin (Aspirin 81 Mg Chew Tab*) 81 mg PO DAILY [facility] Last Admin: 04/04/18 09:41 Dose: 81 mg Atorvastatin Calcium (Lipitor*) 40 mg NG TUBE BEDTIME [facility] Last Admin: 04/03/18 20:38 Dose: 40 mg Clopidogrel Bisulfate (Plavix Tab*) 75 mg PO DAILY [facility] Last Admin: 04/04/18 09:41 Dose: 75 mg Heparin Sodium (Porcine) (Heparin Flush Picc/Ml/Cvc(*)) 1 - 3 ml FLUSH 0600, 1800 [facility]; Protocol Last Admin: 04/04/18 05:11 Dose: 3 ml Insulin Glargine (Lantus(*)) 8 units SUBCUT Q24H [facility] Last Admin: 04/03/18 12:03 Dose: 8 units Insulin Human Lispro (Humalog*) 0 units SUBCUT ACHS [facility]; Protocol Last Admin: 04/04/18 09:37 Dose: Not Given Isosorbide Mononitrate (Imdur Er Tab*) 30 mg PO DAILY [facility] Last Admin: 04/04/18 09:41 Dose: 30 mg Lactobacillus Rhamnosus (Lactobacillus Acidophilus*) 1 tab PO BID [facility] Last Admin: 04/04/18 09:42 Dose: 1 tab Metformin HCl (Glucophage*) 500 mg PO 0800,1700 [facility] Last Admin: 04/04/18 09:41 Dose: 500 mg Metoprolol Tartrate (Lopressor Tab*) 12.5 mg PO Q12HR [facility] Last Admin: 04/04/18 09:42 Dose: 12.5 mg Ondansetron HCl (Zofran Inj*) 4 mg IV Q6H PRN PRN Reason: NAUSEA/VOMITING Last Admin: 04/01/18 20:36 Dose: 4 mg Terazosin HCl (Hytrin Cap*) 4 mg PO BEDTIME [facility] Last Admin: 04/03/18 20:37 Dose: 4 mg Vital Signs - 8 hr 04/04/18 04/04/18 07:35 08:00 Temperature 97.2 F Pulse Rate 71 Respiratory 20 18 Rate Blood Pressure 128/54 (mmHg) O2 Sat by Pulse 100 Oximetry Oxygen Devices in Use Now: Tracheostomy Collar Appearance: 87 yo male sitting up in bed in NAD, A+O x3 Eyes: No Scleral Icterus, PERRLA Ears/Nose/Mouth/Throat: NL Teeth, Lips, Gums, Mucous Membranes Moist Neck: - - trach incision site - healing Respiratory: Symmetrical Chest Expansion and Respiratory Effort, Clear to Auscultation Cardiovascular: NL Sounds; No Murmurs; No JVD, RRR, - - 1-2+ foot/ankle edema R> L (improved from yesterday) Abdominal: NL Sounds; No Tenderness; No Distention Extremities: No Clubbing, Cyanosis Skin: No Rash or Ulcers, No Nodules or Sclerosis Neurological: Alert and Oriented x 3, NL Sensation, NL Muscle Strength and Tone Lines/Tubes/Other Access: Clean, Dry and Intact Peripheral IV Nutrition: Taking PO's - Nutrition: Malnutrition Diagnosis/Plan Malnutrition Assessment by Registered Dietitian: Malnutrition Assessment Clinical Characteristics Acute,Moderate Malnutrition Assessment: - 6.1% wt loss in past one month Criteria - mild temporal muscle wasting - intake likely <75% EEE x 7 days Malnutrition Assessment: 1. follow [employer] re-evaluation of swallowing Interventions function; NPO at this time 2. follow for potential need for PEG placement 3. offer and begin po supplements when pt ready for some level of po intake Malnutrition Assessment: Goals 1. when safe for po intake, pt will tolerate least-restrictive diet texture without evidence of swallowing difficulty or aspiration 2. adequate po intake to maintain present wt and hydration status 3. achieve and maintain serum electrolytes within normal ranges 4. achieve and maintain regulation of bowel pattern; no constipation (or diarrhea) Result Diagrams: 04/04/18 05:25 04/04/18 05:25 Additional Lab and Data: Laboratory Results - last 24 hr 03/14/18 03/14/18 03/14/18 06:47 10:44 11:38 WBC RBC Hgb Hct MCV MCH MCHC RDW Plt Count MPV Neut % (Auto) Lymph % (Auto) [place] % (Auto) Eos % (Auto) Baso % (Auto) Absolute Neuts (auto) Absolute Lymphs (auto) Absolute Monos (auto) Absolute Eos (auto) Absolute Basos (auto) Absolute Nucleated RBC Nucleated RBC % Sodium Potassium Chloride Carbon Dioxide Anion Gap BUN Creatinine Est GFR ( Amer) Est GFR (Non-Af Amer) BUN/Creatinine Ratio Glucose POC Glucose (mg/dL) 441 H* Glucose Meter Confirm 160 H Calcium Magnesium 2.1 03/14/18 03/14/18 03/15/18 17:44 23:55 05:40 WBC RBC Hgb Hct MCV MCH MCHC RDW Plt Count MPV Neut % (Auto) Lymph % (Auto) [place] % (Auto) Eos % (Auto) Baso % (Auto) Absolute Neuts (auto) Absolute Lymphs (auto) Absolute Monos (auto) Absolute Eos (auto) Absolute Basos (auto) Absolute Nucleated RBC Nucleated RBC % Sodium Potassium Chloride Carbon Dioxide Anion Gap BUN Creatinine Est GFR ( Amer) Est GFR (Non-Af Amer) BUN/Creatinine Ratio Glucose POC Glucose (mg/dL) 160 H 143 H 131 H Glucose Meter Confirm Calcium Magnesium 03/15/18 03/15/18 06:34 06:34 WBC 13.2 H RBC 3.86 L Hgb 10.9 L Hct 33 L MCV 85 MCH 28 MCHC 33 RDW 16 H Plt Count 296 MPV 7.9 Neut % (Auto) 89.4 Lymph % (Auto) 4.4 [place] % (Auto) 4.5 Eos % (Auto) 0.7 Baso % (Auto) 1.0 Absolute Neuts (auto) 11.8 H Absolute Lymphs (auto) 0.6 L Absolute Monos (auto) 0.6 Absolute Eos (auto) 0.1 Absolute Basos (auto) 0.1 Absolute Nucleated RBC 0 Nucleated RBC % 0.1 Sodium 142 Potassium 4.3 Chloride 112 H Carbon Dioxide 24 Anion Gap 6 BUN 22 Creatinine 1.21 H Est GFR ( Amer) 68.3 Est GFR (Non-Af Amer) 56.5 BUN/Creatinine Ratio 18.2 Glucose 102 H POC Glucose (mg/dL) Glucose Meter Confirm Calcium 8.7 Magnesium 2.1 Microbiology and Other Data: Microbiology 03/01/18 14:50 Nasal Screen MRSA (PCR) - Final Nasal Mrsa Not Detected Assess/Plan/Problems-Billing Mr. 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 - Patient Problems (1) Laryngeal cancer Comment: s/p tracheostomy and laryngectomy. Waiting for trach supplies (2) Cardiomyopathy Comment: - EF 30% - LE edema increased from baseline. - Discussed with cardiology 04/03- recommended to give a dose of lasix, restart Imdur - DC norvasc which was done - (3) CKD (chronic kidney disease) stage 3, GFR 30-59 ml/min Comment: -Creatinine up from baseline but now trending down - could be CHF related -DC Spironolactone due to eGFR -urinalysis unremarkable. urine sodium/creatinine to calculate FENA was not completed yesterday - will see if can be added on (4) Ventricular tachycardia Comment: -Pt with likely NSTEMI post op as evidenced by EKG changes and reduced EF on echo. Continue ASA, plavix. LifeVest is in place. -Will need to follow up with cardiology after discharge- Dr. Chaudhari within 7 days after discharge - amiodarone to 200 mg daily - (discussed with Dr. Leal) (5) CAD (coronary artery disease) Current Visit: Yes Comment: -It is thought the patient had a [place] post op -Continue ASA, plavix, metoprolol, Imdur and lipitor (6) Malnutrition Comment: -Pt is eating ok on soft diet (7) Atrial fibrillation Comment: -Chronic afib with HR controlled per tele -Pt continues to refuse anticoagulation (8) Diabetes mellitus Comment: -Improved control -Continue to monitor FS as ordered - Continue Lantus at 8 units (9) HTN (hypertension) Comment: -BP WNL -Continue metoprolol, amlodipine DC 04/03 per cardiology -DC home Spirinolactone d/t renal function and not recommend with eGFR <30 (10) DVT prophylaxis Comment: -SCD ordered (11) Full code status Comment: Status and Disposition: -Awaiting trach equipment, treating lower extremity edema
[2018-04-04] MEDS ORDERED: Furosemide IV* 10 MG/ML 2 ML VIAL (20 MG) IV ONE (11:53)
[2018-04-04] MEDS: Insulin GLARGINE(*) 1 UNITS UNIT SUBCUT SCH (12:20)
[2018-04-04 14:39] LABS: Urine Creatinine Concentration 30.01 mg/dL
[2018-04-04] MEDS: Terazosin CAP* 1 MG PO SCH (21:03)
[2018-04-04] MEDS: Atorvastatin* 40 MG TAB NG TUBE SCH (21:04)
[2018-04-05 05:28] LABS: ABS Basophils 0 10^3/ul (0-0.2); ABS Eosinophils 0.2 10^3/ul (0-0.6); ABS Lymphocytes 0.4 10^3/ul (1.0-4.8); ABS Monocytes 0.5 10^3/ul (0-0.8); ABS Neutrophils 5.4 10^3/ul (1.5-7.7); ABS Nucleated RBC 0 10^3/ul; Eosinophil % 3.8 %; Hematocrit 27 % (42-52); Lymphocyte % 5.8 %; Mean Corpuscular HGB Conc 34 g/dl (31-36); Mean Corpuscular Hemoglobin 30 pg (27-31); Mean Corpuscular Volume 90 fL (80-94); Mean Platelet Volume 7.3 fL (7.4-10.4); Nucleated Red Blood Cells % 0; Platelet Count 173 10^3/ul (150-450); Red Blood Count 2.99 10^6/ul (4.00-5.40); Red Cell Distribution Width 19 % (10.5-15); White Blood Count 6.6 10^3/ul (3.5-10.8)
[2018-04-05 05:50] LABS: BUN/Creatinine Ratio 27.4 (8-20); Calcium 8.8 mg/dL (8.6-10.3); EGFR African American 40.6 (>60); EGFR Non-African American 33.5 (>60); Potassium 4.5 mmol/L (3.5-5.0)
[2018-04-05] MEDS: Insulin LISPRO* 1 UNITS UNIT SUBCUT SCH ×4 (07:32→20:21)
[2018-04-05] MEDS ORDERED: Furosemide IV* 10 MG/ML 2 ML VIAL (20 MG) IV ONE (07:41)
[2018-04-05] MEDS: Isosorbide Mononitrate ER TAB* 30 MG PO SCH (08:39)
[2018-04-05] MEDS: Clopidogrel TAB* 75 MG PO SCH (08:39)
[2018-04-05] MEDS: Aspirin 81 mg CHEW TAB* 81 MG TAB.CHEW PO SCH (08:40)
[2018-04-05] MEDS: Amiodarone TAB* 200 MG PO SCH (08:40)
[2018-04-05] MEDS: Metoprolol Tartrate TAB* 25 MG PO SCH ×2 (08:40→20:20)
[2018-04-05] MEDS: Lactobacillus Acidophilus* 1 TAB PO SCH ×2 (08:40→20:20)
[2018-04-05] MEDS: metFORMIN* 500 MG TAB PO SCH ×2 (08:40→17:53)
--- NOTE | 2018-04-05 11:31 | PN ---
Subjective Date of Service: 04/05/18 Interval History: per nursing staff concern over bloody hemopytosis out of trach site with noted BRB and clots. He denies SOB, cough or difficulty swallowing. No pain at site Family History: Unchanged from Admission Social History: Unchanged from Admission Past Medical History: Unchanged from Admission Objective Active Medications: Acetaminophen (Tylenol Adult Liq*) 650 mg PEG TUBE Q4H PRN PRN Reason: PAIN Last Admin: 03/14/18 08:00 Dose: 650 mg Al Hydrox/Mg Hydrox/Simethicone (Maalox Plus*) 30 ml NG TUBE Q6H PRN PRN Reason: DYSPEPSIA Last Admin: 03/15/18 10:16 Dose: 30 ml Amiodarone HCl (Cordarone Tab*) 200 mg PO 0900 [facility] Last Admin: 04/05/18 08:40 Dose: 200 mg Aspirin (Aspirin 81 Mg Chew Tab*) 81 mg PO DAILY [facility] Last Admin: 04/05/18 08:40 Dose: 81 mg Atorvastatin Calcium (Lipitor*) 40 mg NG TUBE BEDTIME [facility] Last Admin: 04/04/18 21:04 Dose: 40 mg Clopidogrel Bisulfate (Plavix Tab*) 75 mg PO DAILY [facility] Last Admin: 04/05/18 08:39 Dose: 75 mg Heparin Sodium (Porcine) (Heparin Flush Picc/Ml/Cvc(*)) 1 - 3 ml FLUSH 0600, 1800 [facility]; Protocol Last Admin: 04/05/18 05:04 Dose: 3 ml Insulin Glargine (Lantus(*)) 8 units SUBCUT Q24H [facility] Last Admin: 04/04/18 12:20 Dose: 8 units Insulin Human Lispro (Humalog*) 0 units SUBCUT ACHS [facility]; Protocol Last Admin: 04/05/18 07:32 Dose: Not Given Isosorbide Mononitrate (Imdur Er Tab*) 30 mg PO DAILY [facility] Last Admin: 04/05/18 08:39 Dose: 30 mg Lactobacillus Rhamnosus (Lactobacillus Acidophilus*) 1 tab PO BID [facility] Last Admin: 04/05/18 08:40 Dose: 1 tab Metformin HCl (Glucophage*) 500 mg PO 0800,1700 [facility] Last Admin: 04/05/18 08:40 Dose: 500 mg Metoprolol Tartrate (Lopressor Tab*) 12.5 mg PO Q12HR [facility] Last Admin: 04/05/18 08:40 Dose: 12.5 mg Ondansetron HCl (Zofran Inj*) 4 mg IV Q6H PRN PRN Reason: NAUSEA/VOMITING Last Admin: 04/01/18 20:36 Dose: 4 mg Terazosin HCl (Hytrin Cap*) 4 mg PO BEDTIME [facility] Last Admin: 04/04/18 21:03 Dose: 4 mg Vital Signs - 8 hr 04/05/18 04/05/18 04/05/18 05:52 07:10 07:48 Temperature 97.5 F Pulse Rate 72 87 Respiratory 18 18 18 Rate Blood Pressure 132/54 (mmHg) O2 Sat by Pulse 100 100 Oximetry 04/05/18 11:08 Temperature 97.5 F Pulse Rate 29 Respiratory 16 Rate Blood Pressure 132/57 (mmHg) O2 Sat by Pulse 100 Oximetry Oxygen Devices in Use Now: Tracheostomy Collar Appearance: 87 yo male sitting up in bed in NAD, A+Ox3 Eyes: No Scleral Icterus, PERRLA Ears/Nose/Mouth/Throat: NL Teeth, Lips, Gums, Mucous Membranes Moist Neck: NL Appearance and Movements; NL JVP, - - trach insicion site - dark clot with dark thin blood draining from site. Pt is comfortable and doesnt seem to be bothered Respiratory: Symmetrical Chest Expansion and Respiratory Effort, Clear to Auscultation Cardiovascular: NL Sounds; No Murmurs; No JVD, RRR, No Edema Abdominal: NL Sounds; No Tenderness; No Distention Extremities: No Edema, No Clubbing, Cyanosis Neurological: Alert and Oriented x 3, NL Sensation, NL Muscle Strength and Tone Lines/Tubes/Other Access: Clean, Dry and Intact Peripheral IV Nutrition: Taking PO's - Nutrition: Malnutrition Diagnosis/Plan Malnutrition Assessment by Registered Dietitian: Malnutrition Assessment Clinical Characteristics Acute,Moderate Malnutrition Assessment: - 6.1% wt loss in past one month Criteria - mild temporal muscle wasting - intake likely <75% EEE x 7 days Malnutrition Assessment: 1. follow CNS re-evaluation of swallowing Interventions function; NPO at this time 2. follow for potential need for PEG placement 3. offer and begin po supplements when pt ready for some level of po intake Malnutrition Assessment: Goals 1. when safe for po intake, pt will tolerate least-restrictive diet texture without evidence of swallowing difficulty or aspiration 2. adequate po intake to maintain present wt and hydration status 3. achieve and maintain serum electrolytes within normal ranges 4. achieve and maintain regulation of bowel pattern; no constipation (or diarrhea) Result Diagrams: 04/05/18 05:15 04/05/18 05:15 Additional Lab and Data: Laboratory Results - last 24 hr 03/14/18 03/14/18 03/14/18 06:47 10:44 11:38 WBC RBC Hgb Hct MCV MCH MCHC RDW Plt Count MPV Neut % (Auto) Lymph % (Auto) [place] % (Auto) Eos % (Auto) Baso % (Auto) Absolute Neuts (auto) Absolute Lymphs (auto) Absolute Monos (auto) Absolute Eos (auto) Absolute Basos (auto) Absolute Nucleated RBC Nucleated RBC % Sodium Potassium Chloride Carbon Dioxide Anion Gap BUN Creatinine Est GFR ( Amer) Est GFR (Non-Af Amer) BUN/Creatinine Ratio Glucose POC Glucose (mg/dL) 441 H* Glucose Meter Confirm 160 H Calcium Magnesium 2.1 03/14/18 03/14/18 03/15/18 17:44 23:55 05:40 WBC RBC Hgb Hct MCV MCH MCHC RDW Plt Count MPV Neut % (Auto) Lymph % (Auto) [place] % (Auto) Eos % (Auto) Baso % (Auto) Absolute Neuts (auto) Absolute Lymphs (auto) Absolute Monos (auto) Absolute Eos (auto) Absolute Basos (auto) Absolute Nucleated RBC Nucleated RBC % Sodium Potassium Chloride Carbon Dioxide Anion Gap BUN Creatinine Est GFR ( Amer) Est GFR (Non-Af Amer) BUN/Creatinine Ratio Glucose POC Glucose (mg/dL) 160 H 143 H 131 H Glucose Meter Confirm Calcium Magnesium 03/15/18 03/15/18 06:34 06:34 WBC 13.2 H RBC 3.86 L Hgb 10.9 L Hct 33 L MCV 85 MCH 28 MCHC 33 RDW 16 H Plt Count 296 MPV 7.9 Neut % (Auto) 89.4 Lymph % (Auto) 4.4 [place] % (Auto) 4.5 Eos % (Auto) 0.7 Baso % (Auto) 1.0 Absolute Neuts (auto) 11.8 H Absolute Lymphs (auto) 0.6 L Absolute Monos (auto) 0.6 Absolute Eos (auto) 0.1 Absolute Basos (auto) 0.1 Absolute Nucleated RBC 0 Nucleated RBC % 0.1 Sodium 142 Potassium 4.3 Chloride 112 H Carbon Dioxide 24 Anion Gap 6 BUN 22 Creatinine 1.21 H Est GFR ( Amer) 68.3 Est GFR (Non-Af Amer) 56.5 BUN/Creatinine Ratio 18.2 Glucose 102 H POC Glucose (mg/dL) Glucose Meter Confirm Calcium 8.7 Magnesium 2.1 Microbiology and Other Data: Microbiology 03/01/18 14:50 Nasal Screen MRSA (PCR) - Final Nasal Mrsa Not Detected Assess/Plan/Problems-Billing Mr. 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 - Patient Problems (1) Laryngeal cancer Comment: s/p tracheostomy and laryngectomy. Waiting for trach supplies - increasing hemopytsis ? or appears to be intermittent - large bloody clots and drainage today - discussed with ENT Dr. Orozco who will saw the patient today - this is not new, he underwent broch by Dr. Stubbs which appeared normal. Plan to obtain CT chest as maybe he has a lung mass. He did look down stoma with flex scope and didnt see much - it is possible the insision site is oozing. He is on dual platelet therapy with ASA/Plavix. Plan to keep soft trach in in stoma now during day (nursing staff has been removing this during the day and placing at night), wait and watch and see if this resolves on its own, if not recommended consult by [facility] (pulm) for bronch. Ok to continue antiplatelet therapy at [facility] time but this may have to be reconsidered (maybe hold plavix) (2) Cardiomyopathy Comment: - EF 30% - LE edema increased from baseline now improving - Discussed with cardiology 04/03- recommended to give a dose of lasix, restart Imdur - DC norvasc which was done -Most likely will require po diuretic on dc - will start him on lasix 20 mg daily starting 04/06 - repeat BNP in am (3) CKD (chronic kidney disease) stage 3, GFR 30-59 ml/min Comment: - improving with IV diuretics - -Creatinine up from baseline trending down with diuertic -DC Spironolactone due to eGFR -urinalysis unremarkable. (4) Ventricular tachycardia Comment: -Pt with likely NSTEMI post op as evidenced by EKG changes and reduced EF on echo. Continue ASA, plavix. LifeVest is in place. -Will need to follow up with cardiology after discharge- Dr. Chaudhari within 7 days after discharge - amiodarone to 200 mg daily - (discussed with Dr. Leal) (5) CAD (coronary artery disease) Current Visit: Yes Comment: -It is thought the patient had a [place] post op -Continue ASA, plavix, metoprolol, Imdur and lipitor (6) Malnutrition Comment: -Pt is eating ok on soft diet (7) Atrial fibrillation Comment: -Chronic afib with HR controlled per tele -Pt continues to refuse anticoagulation (8) Diabetes mellitus Comment: -Improved control -Continue to monitor FS as ordered - Continue Lantus at 8 units (9) HTN (hypertension) Comment: -BP WNL -Continue metoprolol, amlodipine DC 04/03 per cardiology -DC home Spirinolactone d/t renal function and not recommend with eGFR <30 - lasix added to regimen -watch BPs closely (10) DVT prophylaxis Comment: -SCD ordered (11) Full code status Comment: Status and Disposition: -Awaiting trach equipment, treating lower extremity edema. Now with hemopytosis.
[2018-04-05] MEDS: Insulin GLARGINE(*) 1 UNITS UNIT SUBCUT SCH (11:39)
[2018-04-05] MEDS: Atorvastatin* 40 MG TAB NG TUBE SCH (20:20)
[2018-04-05] MEDS: Terazosin CAP* 1 MG PO SCH (20:20)
[2018-04-06 05:53] LABS: ABS Basophils 0.1 10^3/ul (0-0.2); ABS Eosinophils 0.2 10^3/ul (0-0.6); ABS Lymphocytes 0.4 10^3/ul (1.0-4.8); ABS Monocytes 0.5 10^3/ul (0-0.8); ABS Neutrophils 5.2 10^3/ul (1.5-7.7); ABS Nucleated RBC 0 10^3/ul; Eosinophil % 3.7 %; Hematocrit 26 % (42-52); Hemoglobin 8.7 g/dl (14.0-18.0); Lymphocyte % 6.9 %; Mean Corpuscular HGB Conc 34 g/dl (31-36); Mean Corpuscular Hemoglobin 30 pg (27-31); Mean Corpuscular Volume 90 fL (80-94); Mean Platelet Volume 7.4 fL (7.4-10.4); Nucleated Red Blood Cells % 0; Platelet Count 168 10^3/ul (150-450); Red Blood Count 2.88 10^6/ul (4.00-5.40); Red Cell Distribution Width 19 % (10.5-15); White Blood Count 6.5 10^3/ul (3.5-10.8)
[2018-04-06 06:11] LABS: Calcium 7.7 mg/dL (8.6-10.3); EGFR African American 46.8 (>60); EGFR Non-African American 38.7 (>60); Potassium 3.9 mmol/L (3.5-5.0)
[2018-04-06] MEDS: Insulin LISPRO* 1 UNITS UNIT SUBCUT SCH ×4 (09:36→21:21)
[2018-04-06] MEDS: Isosorbide Mononitrate ER TAB* 30 MG PO SCH (09:43)
[2018-04-06] MEDS: Amiodarone TAB* 200 MG PO SCH (09:44)
[2018-04-06] MEDS: metFORMIN* 500 MG TAB PO SCH ×2 (09:44→17:31)
[2018-04-06] MEDS: Aspirin 81 mg CHEW TAB* 81 MG TAB.CHEW PO SCH (09:44)
[2018-04-06] MEDS: Lactobacillus Acidophilus* 1 TAB PO SCH ×2 (09:44→22:45)
[2018-04-06] MEDS: Clopidogrel TAB* 75 MG PO SCH (09:44)
[2018-04-06] MEDS: Furosemide TAB* 20 MG PO SCH (09:44)
[2018-04-06] MEDS: Metoprolol Tartrate TAB* 25 MG PO SCH ×2 (09:45→22:44)
[2018-04-06] MEDS: Insulin GLARGINE(*) 1 UNITS UNIT SUBCUT SCH (12:45)
--- NOTE | 2018-04-06 16:11 | PN ---
Subjective Date of Service: 04/06/18 Interval History: Patient continues to bleed from his tracheostomy. Patient has not been adequately suctioning himself per nursing staff. Patient has a persistent cough. Patient denies C/P, SOB, abdominal pain, diarrhea, palpitations, N/V, dysuria, or other pain. Family History: Unchanged from Admission Social History: Unchanged from Admission Past Medical History: Unchanged from Admission Objective Active Medications: Acetaminophen (Tylenol Adult Liq*) 650 mg PEG TUBE Q4H PRN PRN Reason: PAIN Last Admin: 03/14/18 08:00 Dose: 650 mg Al Hydrox/Mg Hydrox/Simethicone (Maalox Plus*) 30 ml NG TUBE Q6H PRN PRN Reason: DYSPEPSIA Last Admin: 03/15/18 10:16 Dose: 30 ml Amiodarone HCl (Cordarone Tab*) 200 mg PO 0900 [facility] Last Admin: 04/06/18 09:44 Dose: 200 mg Aspirin (Aspirin 81 Mg Chew Tab*) 81 mg PO DAILY [facility] Last Admin: 04/06/18 09:44 Dose: 81 mg Atorvastatin Calcium (Lipitor*) 40 mg NG TUBE BEDTIME [facility] Last Admin: 04/05/18 20:20 Dose: 40 mg Clopidogrel Bisulfate (Plavix Tab*) 75 mg PO DAILY [facility] Last Admin: 04/06/18 09:44 Dose: 75 mg Furosemide (Lasix Tab*) 20 mg PO DAILY [facility] Last Admin: 04/06/18 09:44 Dose: 20 mg Heparin Sodium (Porcine) (Heparin Flush Picc/Ml/Cvc(*)) 1 - 3 ml FLUSH 0600, 1800 [facility]; Protocol Last Admin: 04/06/18 05:31 Dose: 3 ml Insulin Glargine (Lantus(*)) 8 units SUBCUT Q24H [facility] Last Admin: 04/06/18 12:45 Dose: 8 units Insulin Human Lispro (Humalog*) 0 units SUBCUT ACHS [facility]; Protocol Last Admin: 04/06/18 12:45 Dose: 3 units Isosorbide Mononitrate (Imdur Er Tab*) 30 mg PO DAILY [facility] Last Admin: 04/06/18 09:43 Dose: 30 mg Lactobacillus Rhamnosus (Lactobacillus Acidophilus*) 1 tab PO BID [facility] Last Admin: 02/28/19 09:44 Dose: 1 tab Metformin HCl (Glucophage*) 500 mg PO 0800,1700 [facility] Last Admin: 04/06/18 09:44 Dose: 500 mg Metoprolol Tartrate (Lopressor Tab*) 12.5 mg PO Q12HR [facility] Last Admin: 04/06/18 09:45 Dose: 12.5 mg Ondansetron HCl (Zofran Inj*) 4 mg IV Q6H PRN PRN Reason: NAUSEA/VOMITING Last Admin: 04/01/18 20:36 Dose: 4 mg Terazosin HCl (Hytrin Cap*) 4 mg PO BEDTIME [facility] Last Admin: 04/05/18 20:20 Dose: 4 mg Oxygen Devices in Use Now: Tracheostomy Collar Appearance: Patient is an 87yo male who appears stated age and is sitting in the bed in [facility]. Eyes: No Scleral Icterus, PERRLA Ears/Nose/Mouth/Throat: NL Teeth, Lips, Gums, Clear Oropharnyx, Mucous Membranes Moist Neck: Trachea Midline, - - Tracheostomy with dried blood and no visible ulcers. Respiratory: Symmetrical Chest Expansion and Respiratory Effort, Clear to Auscultation Cardiovascular: NL Sounds; No Murmurs; No JVD, RRR, No Edema Abdominal: NL Sounds; No Tenderness; No Distention, No Hepatosplenomegaly Lymphatic: No Cervical Adenopathy Extremities: No Edema, No Clubbing, Cyanosis Skin: No Rash or Ulcers, No Nodules or Sclerosis Neurological: Alert and Oriented x 3, - - CN II-XII intact. - Nutrition: Malnutrition Diagnosis/Plan Malnutrition Assessment by Registered Dietitian: Malnutrition Assessment Clinical Characteristics Acute,Moderate Malnutrition Assessment: - 6.1% wt loss in past one month Criteria - mild temporal muscle wasting - intake likely <75% EEE x 7 days Malnutrition Assessment: 1. follow [employer] RE[employer]TER re-evaluation of swallowing Interventions function; NPO at this time 2. follow for potential need for PEG placement 3. offer and begin po supplements when pt ready for some level of po intake Malnutrition Assessment: Goals 1. when safe for po intake, pt will tolerate least-restrictive diet texture without evidence of swallowing difficulty or aspiration 2. adequate po intake to maintain present wt and hydration status 3. achieve and maintain serum electrolytes within normal ranges 4. achieve and maintain regulation of bowel pattern; no constipation (or diarrhea) Result Diagrams: 04/06/18 05:30 04/06/18 05:30 Additional Lab and Data: Laboratory Results - last 24 hr Microbiology and Other Data: Microbiology 03/01/18 14:50 Nasal Screen MRSA (PCR) - Final Nasal Mrsa Not Detected Assess/Plan/Problems-Billing Mr. 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 - Patient Problems (1) Laryngeal cancer Current Visit: Yes Status: Acute Comment: - S/P tracheostomy and laryngectomy. There are concerns about trachostomy care and availability of supplies which have been holding up discharge. - Persistent hemoptysis - Large bloody clots and drainage today - Discussed with ENT Dr. Richardson today, Recommends keeping out trachestomy device, will see tomorrow - Underwent broch by Dr. Stubbs which appeared normal. - CT Head Negative. - Possible the insision site is oozing. He is on dual platelet therapy with ASA/ Plavix. - Ok to continue antiplatelet therapy at tyhis time but this may have to be reconsidered (maybe hold plavix) (2) CKD (chronic kidney disease) stage 3, GFR 30-59 ml/min Current Visit: Yes Status: Acute Code(s): N18.3 - CHRONIC KIDNEY DISEASE, STAGE 3 (MODERATE) SNOMED Code(s): 153792215 Comment: - Improved to near baseline with IV diuretics - DC Spironolactone due to eGFR - urinalysis unremarkable. - Appears Euvolemic (3) Cardiomyopathy Current Visit: Yes Status: Acute Code(s): I42.9 - CARDIOMYOPATHY, UNSPECIFIED SNOMED Code(s): 08256538 Comment: - EF 30% - LE edema minimal - Discussed with cardiology 04/03- - Restarted Imdur, DC'd norvasc - Continue Po lasix low dose. (4) Tracheostomy complication Current Visit: Yes Status: Acute Code(s): J95.00 - UNSPECIFIED TRACHEOSTOMY COMPLICATION SNOMED Code(s): 83055809 Comment: -There is some bleeding of tracheostomy; increased bleeding from previous -D/W Dr. Stubbs -Will await further input -Coags and plt ct WNL -D/C pharmacologic DVT prophylaxis (5) Atrial fibrillation Current Visit: Yes Status: Chronic Code(s): I48.91 - UNSPECIFIED ATRIAL FIBRILLATION SNOMED Code(s): 51514060 Comment: -Chronic afib with HR controlled per tele -Pt continues to refuse anticoagulation (6) Ventricular tachycardia Current Visit: Yes Status: Acute Code(s): I47.2 - VENTRICULAR TACHYCARDIA SNOMED Code(s): 21931701 Comment: -Pt with likely NSTEMI post op as evidenced by EKG changes and reduced EF on echo. Continue ASA, plavix. LifeVest is in place. -Will need to follow up with cardiology after discharge- Dr. Chaudhari within 7 days after discharge - amiodarone to 200 mg daily - (discussed with Dr. Leal) (7) CAD (coronary artery disease) Current Visit: Yes Status: Chronic Code(s): I25.10 - ATHSCL HEART DISEASE OF [place] CORONARY ARTERY W/O ANG PCTRS SNOMED Code(s): 78696163 Comment: -It is thought the patient had a [facility] post op -Continue ASA, plavix, metoprolol, Imdur and lipitor (8) Diabetes mellitus Current Visit: Yes Status: Chronic Code(s): E11.9 - TYPE 2 DIABETES MELLITUS WITHOUT COMPLICATIONS SNOMED Code(s): 03633880 Comment: -Improved control -Continue to monitor FS as ordered - Continue Lantus at 8 units (9) HTN (hypertension) Current Visit: Yes Status: Chronic Code(s): I10 - ESSENTIAL (PRIMARY) HYPERTENSION SNOMED Code(s): 62939750 Comment: -BP WNL -Continue metoprolol, amlodipine DC 04/03 per cardiology -DC home Spirinolactone d/t renal function and not recommend with eGFR <30 - lasix added to regimen -watch BPs closely (10) DVT prophylaxis Current Visit: Yes Status: Acute Code(s): IZE5727 - SNOMED Code(s): 166045486 Comment: -SCD ordered (11) Full code status Current Visit: Yes Status: Acute Code(s): Z78.9 - OTHER SPECIFIED HEALTH STATUS SNOMED Code(s): 456467879 Comment: Status and Disposition: -Awaiting trach equipment and training, hopeful D/C in the next few days.
[2018-04-06] MEDS: Atorvastatin* 40 MG TAB NG TUBE SCH (22:45)
[2018-04-06] MEDS: Terazosin CAP* 1 MG PO SCH (22:46)
[2018-04-07 06:47] LABS: ABS Basophils 0.1 10^3/ul (0-0.2); ABS Eosinophils 0.3 10^3/ul (0-0.6); ABS Lymphocytes 0.4 10^3/ul (1.0-4.8); ABS Monocytes 0.5 10^3/ul (0-0.8); ABS Neutrophils 5.5 10^3/ul (1.5-7.7); ABS Nucleated RBC 0 10^3/ul; Eosinophil % 4.3 %; Hematocrit 25 % (42-52); Hemoglobin 8.4 g/dl (14.0-18.0); Lymphocyte % 6.1 %; Mean Corpuscular HGB Conc 33 g/dl (31-36); Mean Corpuscular Hemoglobin 30 pg (27-31); Mean Corpuscular Volume 90 fL (80-94); Nucleated Red Blood Cells % 0; Platelet Count 125 10^3/ul (150-450); Red Blood Count 2.82 10^6/ul (4.00-5.40); Red Cell Distribution Width 19 % (10.5-15); White Blood Count 6.7 10^3/ul (3.5-10.8)
[2018-04-07 06:51] LABS: BUN/Creatinine Ratio 25.7 (8-20); Calcium 8.5 mg/dL (8.6-10.3); EGFR African American 43.5 (>60); EGFR Non-African American 35.9 (>60); Magnesium 1.5 mg/dL (1.9-2.7); Potassium 4.3 mmol/L (3.5-5.0)
[2018-04-07] MEDS: Insulin LISPRO* 1 UNITS UNIT SUBCUT SCH ×4 (07:55→21:29)
[2018-04-07] MEDS ORDERED: Magnesium Sulfate 2 GM IV* 2 GM/50 ML BAG IVPB ONE (09:23)
[2018-04-07] MEDS: Clopidogrel TAB* 75 MG PO SCH (10:27)
[2018-04-07] MEDS: metFORMIN* 500 MG TAB PO SCH ×2 (10:27→17:40)
[2018-04-07] MEDS: Lactobacillus Acidophilus* 1 TAB PO SCH ×2 (10:27→21:30)
[2018-04-07] MEDS: Metoprolol Tartrate TAB* 25 MG PO SCH ×2 (10:27→21:27)
[2018-04-07] MEDS: Aspirin 81 mg CHEW TAB* 81 MG TAB.CHEW PO SCH (10:29)
[2018-04-07] MEDS: Amiodarone TAB* 200 MG PO SCH (10:29)
[2018-04-07] MEDS: Isosorbide Mononitrate ER TAB* 30 MG PO SCH (10:29)
[2018-04-07] MEDS: Furosemide TAB* 20 MG PO SCH (10:29)
[2018-04-07] MEDS: Insulin GLARGINE(*) 1 UNITS UNIT SUBCUT SCH (13:16)
--- NOTE | 2018-04-07 19:03 | PN ---
Subjective Date of Service: 04/07/18 Interval History: Sitting on side of bed on assessment. Denies bloody discharge from stoma today. Denies shortness of breath. Denies cp , palpitations, nausea, vomiting, diarrhea. Reports last BM 2 days ago. Reports he is tolerated his diet without difficulty. Received call from Dr Osborne regarding previous bleeding from stoma. Dr Osbonre reports he noted bright red blood from stoma on Tuesday and his colleuge was contacted regarding same on . He reports he believes bleeding is due to stoma trauma. He reports he observed patient attempting to place his own trach and it took him several minutes of manipulating area which could be causing trauma to area. Therefore, Dr Osborne is recommending leaving soft trach in at all times except for cleaning. He has also written orders for wound/stoma care Family History: Unchanged from Admission Social History: Unchanged from Admission Past Medical History: Unchanged from Admission Objective Active Medications: Acetaminophen (Tylenol Adult Liq*) 650 mg PEG TUBE Q4H PRN PRN Reason: PAIN Last Admin: 03/14/18 08:00 Dose: 650 mg Al Hydrox/Mg Hydrox/Simethicone (Maalox Plus*) 30 ml NG TUBE Q6H PRN PRN Reason: DYSPEPSIA Last Admin: 03/15/18 10:16 Dose: 30 ml Amiodarone HCl (Cordarone Tab*) 200 mg PO 0900 [facility] Last Admin: 04/07/18 10:29 Dose: 200 mg Aspirin (Aspirin 81 Mg Chew Tab*) 81 mg PO DAILY [facility] Last Admin: 04/07/18 10:29 Dose: 81 mg Atorvastatin Calcium (Lipitor*) 40 mg NG TUBE BEDTIME [facility] Last Admin: 04/06/18 22:45 Dose: 40 mg Clopidogrel Bisulfate (Plavix Tab*) 75 mg PO DAILY [facility] Last Admin: 04/07/18 10:27 Dose: 75 mg Docusate Sodium (Colace Cap*) 100 mg PO BID PRN PRN Reason: CONSTIPATION Furosemide (Lasix Tab*) 20 mg PO DAILY [facility] Last Admin: 04/07/18 10:29 Dose: 20 mg Heparin Sodium (Porcine) (Heparin Flush Picc/Ml/Cvc(*)) 1 - 3 ml FLUSH 0600, 1800 [facility]; Protocol Last Admin: 04/07/18 17:40 Dose: 3 ml Insulin Glargine (Lantus(*)) 8 units SUBCUT Q24H [facility] Last Admin: 04/07/18 13:16 Dose: 8 units Insulin Human Lispro (Humalog*) 0 units SUBCUT ACHS [facility]; Protocol Last Admin: 04/07/18 17:30 Dose: Not Given Isosorbide Mononitrate (Imdur Er Tab*) 30 mg PO DAILY [facility] Last Admin: 04/07/18 10:29 Dose: 30 mg Lactobacillus Rhamnosus (Lactobacillus Acidophilus*) 1 tab PO BID [facility] Last Admin: 04/07/18 10:27 Dose: 1 tab Metformin HCl (Glucophage*) 500 mg PO 0800,1700 [facility] Last Admin: 04/07/18 17:40 Dose: 500 mg Metoprolol Tartrate (Lopressor Tab*) 12.5 mg PO Q12HR [facility] Last Admin: 04/07/18 10:27 Dose: 12.5 mg Ondansetron HCl (Zofran Inj*) 4 mg IV Q6H PRN PRN Reason: NAUSEA/VOMITING Last Admin: 04/01/18 20:36 Dose: 4 mg Senna (Senokot Tab*) 1 tab PO DAILY PRN PRN Reason: CONSTIPATION Terazosin HCl (Hytrin Cap*) 4 mg PO BEDTIME [facility] Last Admin: 04/06/18 22:46 Dose: 4 mg Vital Signs - 8 hr 04/07/18 12:03 Temperature 98.6 F Pulse Rate 61 Respiratory 20 Rate Blood Pressure 126/51 (mmHg) O2 Sat by Pulse 100 Oximetry Oxygen Devices in Use Now: Tracheostomy Collar Appearance: Comfortable, NAD Eyes: No Scleral Icterus Ears/Nose/Mouth/Throat: Clear Oropharnyx, Mucous Membranes Moist Neck: NL Appearance and Movements; NL JVP Respiratory: Symmetrical Chest Expansion and Respiratory Effort, Clear to Auscultation Cardiovascular: NL Sounds; No Murmurs; No JVD, RRR, No Edema Abdominal: NL Sounds; No Tenderness; No Distention Lymphatic: No Cervical Adenopathy Extremities: No Clubbing, Cyanosis Skin: No Rash or Ulcers Neurological: Alert and Oriented x 3, NL Muscle Strength and Tone Nutrition: Taking PO's - Nutrition: Malnutrition Diagnosis/Plan Malnutrition Assessment by Registered Dietitian: Malnutrition Assessment Clinical Characteristics Acute,Moderate Malnutrition Assessment: - 6.1% wt loss in past one month Criteria - mild temporal muscle wasting - intake likely <75% EEE x 7 days Malnutrition Assessment: 1. 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 follow for potential need for PEG placement 3. offer and begin po supplements when pt ready for some level of po intake Malnutrition Assessment: Goals 1. when safe for po intake, pt will tolerate least-restrictive diet texture without evidence of swallowing difficulty or aspiration 2. adequate po intake to maintain present wt and hydration status 3. achieve and maintain serum electrolytes within normal ranges 4. achieve and maintain regulation of bowel pattern; no constipation (or diarrhea) Result Diagrams: 04/07/18 05:52 04/07/18 05:52 Additional Lab and Data: Laboratory Results - last 24 hr 04/06/18 04/07/18 04/07/18 21:00 05:52 05:52 WBC 6.7 RBC 2.82 L Hgb 8.4 L Hct 25 L MCV 90 MCH 30 MCHC 33 RDW 19 H Plt Count 125 L MPV 8.0 Neut % (Auto) 82.0 Lymph % (Auto) 6.1 [place] % (Auto) 6.8 Eos % (Auto) 4.3 Baso % (Auto) 0.8 Absolute Neuts (auto) 5.5 Absolute Lymphs (auto) 0.4 L Absolute Monos (auto) 0.5 Absolute Eos (auto) 0.3 Absolute Basos (auto) 0.1 Absolute Nucleated RBC 0 Nucleated RBC % 0 Sodium 137 Potassium 4.3 Chloride 104 Carbon Dioxide 29 Anion Gap 4 BUN 46 H Creatinine 1.79 H Est GFR ( Amer) 43.5 Est GFR (Non-Af Amer) 35.9 BUN/Creatinine Ratio 25.7 H Glucose 72 POC Glucose (mg/dL) 139 H Calcium 8.5 L Magnesium 1.5 L 04/07/18 04/07/18 04/07/18 07:43 11:54 17:28 WBC RBC Hgb Hct MCV MCH MCHC RDW Plt Count MPV Neut % (Auto) Lymph % (Auto) [place] % (Auto) Eos % (Auto) Baso % (Auto) Absolute Neuts (auto) Absolute Lymphs (auto) Absolute Monos (auto) Absolute Eos (auto) Absolute Basos (auto) Absolute Nucleated RBC Nucleated RBC % Sodium Potassium Chloride Carbon Dioxide Anion Gap BUN Creatinine Est GFR ( Amer) Est GFR (Non-Af Amer) BUN/Creatinine Ratio Glucose POC Glucose (mg/dL) 93 169 H 110 H Calcium Magnesium Microbiology and Other Data: Microbiology 03/01/18 14:50 Nasal Screen MRSA (PCR) - Final Nasal Mrsa Not Detected Assess/Plan/Problems-Billing Mr. 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 - Patient Problems (1) Laryngeal cancer Comment: - S/P tracheostomy and laryngectomy. There are concerns about trachostomy care and availability of supplies which have been holding up discharge. - Hemoptysis improving. - Received call from Dr Osborne regarding previous bleeding from stoma. Dr Osborne reports he noted bright red blood from stoma on Tuesday and his colleuge was contacted regarding same on . He reports he believes bleeding is due to stoma trauma. He reports he observed patient attempting to place his own trach and it took him several minutes of manipulating area which could be causing trauma to area. Therefore, Dr Osborne is recommending leaving soft trach in at all times except for cleaning. He has also written orders for wound/stoma care (2) Ventricular tachycardia Comment: -Pt with likely NSTEMI post op as evidenced by EKG changes and reduced EF on echo. Continue ASA, plavix. LifeVest is in place. -Will need to follow up with cardiology after discharge- Dr. Chaudhari within 7 days after discharge - amiodarone to 200 mg daily - (discussed with Dr. Leal) (3) Atrial fibrillation Comment: -Chronic afib with HR controlled per tele -Pt continues to refuse anticoagulation (4) Malnutrition Comment: -Pt is eating ok on soft diet (5) Tracheostomy in place Comment: -Continue tracheostomy education (6) CAD (coronary artery disease) Comment: -It is thought the patient had a [place] post op -Continue ASA, plavix, metoprolol, Imdur and lipitor (7) Diabetes mellitus Comment: -Improved control -Continue to monitor FS as ordered - Continue Lantus at 8 units (8) HTN (hypertension) Comment: -BP WNL -Continue metoprolol, amlodipine DC 04/03 per cardiology -DC home Spirinolactone d/t renal function and not recommend with eGFR <30 - lasix added to regimen -watch BPs closely (9) DVT prophylaxis Comment: -SCD ordered (10) Full code status Comment: Status and Disposition: -Awaiting trach equipment and training, hopeful D/C in the next few days. Attending: Derrick Sandoval
[2018-04-07] MEDS: Atorvastatin* 40 MG TAB NG TUBE SCH (21:26)
[2018-04-07] MEDS: Terazosin CAP* 1 MG PO SCH (21:28)
[2018-04-08 05:34] LABS: Hematocrit 24 % (42-52); Hemoglobin 8.2 g/dl (14.0-18.0); Mean Corpuscular HGB Conc 34 g/dl (31-36); Mean Corpuscular Hemoglobin 30 pg (27-31); Mean Corpuscular Volume 89 fL (80-94); Mean Platelet Volume 7.4 fL (7.4-10.4); Platelet Count 143 10^3/ul (150-450); Red Cell Distribution Width 19 % (10.5-15); White Blood Count 6.6 10^3/ul (3.5-10.8)
[2018-04-08 05:50] LABS: BUN/Creatinine Ratio 23.2 (8-20); Calcium 8.2 mg/dL (8.6-10.3); EGFR African American 42.9 (>60); EGFR Non-African American 35.5 (>60); Magnesium 1.9 mg/dL (1.9-2.7); Potassium 4.3 mmol/L (3.5-5.0)
[2018-04-08] MEDS: Insulin LISPRO* 1 UNITS UNIT SUBCUT SCH ×4 (09:13→21:33)
[2018-04-08] MEDS: Lactobacillus Acidophilus* 1 TAB PO SCH ×2 (09:17→22:10)
[2018-04-08] MEDS: Isosorbide Mononitrate ER TAB* 30 MG PO SCH (09:17)
[2018-04-08] MEDS: Aspirin 81 mg CHEW TAB* 81 MG TAB.CHEW PO SCH (09:17)
[2018-04-08] MEDS: Metoprolol Tartrate TAB* 25 MG PO SCH ×2 (09:17→22:09)
[2018-04-08] MEDS: Furosemide TAB* 20 MG PO SCH (09:17)
[2018-04-08] MEDS: metFORMIN* 500 MG TAB PO SCH ×2 (09:17→17:36)
[2018-04-08] MEDS: Clopidogrel TAB* 75 MG PO SCH (09:17)
[2018-04-08] MEDS: Amiodarone TAB* 200 MG PO SCH (09:18)
[2018-04-08] MEDS ORDERED: Bacitracin OINTMENT* 0.5% 0.5 oz TUBE TOPICAL PRN (11:36)
[2018-04-08] MEDS: Insulin GLARGINE(*) 1 UNITS UNIT SUBCUT SCH (12:54)
--- NOTE | 2018-04-08 19:09 | PN ---
Subjective Date of Service: 04/08/18 Interval History: Sitting on bed on assessment. Anxious for discharge. Denies cp, sob, palpitations, dizziness, nausea, vomiting, diarrhea Blood tinged sputum noted from tach when patient coughed and suctioned self Family History: Unchanged from Admission Social History: Unchanged from Admission Past Medical History: Unchanged from Admission Objective Active Medications: Acetaminophen (Tylenol Adult Liq*) 650 mg PEG TUBE Q4H PRN PRN Reason: PAIN Last Admin: 03/14/18 08:00 Dose: 650 mg Al Hydrox/Mg Hydrox/Simethicone (Maalox Plus*) 30 ml NG TUBE Q6H PRN PRN Reason: DYSPEPSIA Last Admin: 03/15/18 10:16 Dose: 30 ml Amiodarone HCl (Cordarone Tab*) 200 mg PO 0900 [facility] Last Admin: 04/08/18 09:18 Dose: 200 mg Aspirin (Aspirin 81 Mg Chew Tab*) 81 mg PO DAILY [facility] Last Admin: 04/08/18 09:17 Dose: 81 mg Atorvastatin Calcium (Lipitor*) 40 mg NG TUBE BEDTIME [facility] Last Admin: 04/07/18 21:26 Dose: 40 mg Bacitracin (Bacitracin Ointment*) 1 applic TOPICAL TID PRN PRN Reason: WOUND CARE Last Admin: 04/08/18 15:00 Dose: 1 applic Clopidogrel Bisulfate (Plavix Tab*) 75 mg PO DAILY [facility] Last Admin: 04/08/18 09:17 Dose: 75 mg Docusate Sodium (Colace Cap*) 100 mg PO BID PRN PRN Reason: CONSTIPATION Furosemide (Lasix Tab*) 20 mg PO DAILY [facility] Last Admin: 04/08/18 09:17 Dose: 20 mg Heparin Sodium (Porcine) (Heparin Flush Picc/Ml/Cvc(*)) 1 - 3 ml FLUSH 0600, 1800 [facility]; Protocol Last Admin: 04/08/18 17:37 Dose: 3 ml Insulin Glargine (Lantus(*)) 8 units SUBCUT Q24H [facility] Last Admin: 04/08/18 12:54 Dose: 8 units Insulin Human Lispro (Humalog*) 0 units SUBCUT ACHS [facility]; Protocol Last Admin: 04/08/18 17:36 Dose: Not Given Isosorbide Mononitrate (Imdur Er Tab*) 30 mg PO DAILY [facility] Last Admin: 04/08/18 09:17 Dose: 30 mg Lactobacillus Rhamnosus (Lactobacillus Acidophilus*) 1 tab PO BID [facility] Last Admin: 04/08/18 09:17 Dose: 1 tab Metformin HCl (Glucophage*) 500 mg PO 0800,1700 [facility] Last Admin: 04/08/18 17:36 Dose: 500 mg Metoprolol Tartrate (Lopressor Tab*) 12.5 mg PO Q12HR [facility] Last Admin: 04/08/18 09:17 Dose: 12.5 mg Ondansetron HCl (Zofran Inj*) 4 mg IV Q6H PRN PRN Reason: NAUSEA/VOMITING Last Admin: 04/01/18 20:36 Dose: 4 mg Senna (Senokot Tab*) 1 tab PO DAILY PRN PRN Reason: CONSTIPATION Terazosin HCl (Hytrin Cap*) 4 mg PO BEDTIME [facility] Last Admin: 04/07/18 21:28 Dose: 4 mg Vital Signs - 8 hr 04/08/18 04/08/18 11:32 15:53 Temperature 96.5 F 97.2 F Pulse Rate 67 57 Respiratory 16 18 Rate Blood Pressure 105/70 129/40 (mmHg) O2 Sat by Pulse 100 100 Oximetry Oxygen Devices in Use Now: Tracheostomy Collar Appearance: NAD Eyes: No Scleral Icterus Ears/Nose/Mouth/Throat: Clear Oropharnyx, Mucous Membranes Moist Neck: NL Appearance and Movements; NL JVP Respiratory: Symmetrical Chest Expansion and Respiratory Effort, - - Scant rhonchi in upper lobes that clear with cough. Otherwise clear Cardiovascular: NL Sounds; No Murmurs; No JVD, RRR, No Edema Abdominal: NL Sounds; No Tenderness; No Distention Lymphatic: No Cervical Adenopathy Extremities: No Clubbing, Cyanosis Skin: No Rash or Ulcers Neurological: Alert and Oriented x 3 Nutrition: Taking PO's - Nutrition: Malnutrition Diagnosis/Plan Malnutrition Assessment by Registered Dietitian: Malnutrition Assessment Clinical Characteristics Acute,Moderate Malnutrition Assessment: - 6.1% wt loss in past one month Criteria - mild temporal muscle wasting - intake likely <75% EEE x 7 days Malnutrition Assessment: 1. follow [employer]ER re-evaluation of swallowing Interventions function; NPO at this time 2. follow for potential need for PEG placement 3. offer and begin po supplements when pt ready for some level of po intake Malnutrition Assessment: Goals 1. when safe for po intake, pt will tolerate least-restrictive diet texture without evidence of swallowing difficulty or aspiration 2. adequate po intake to maintain present wt and hydration status 3. achieve and maintain serum electrolytes within normal ranges 4. achieve and maintain regulation of bowel pattern; no constipation (or diarrhea) Result Diagrams: 04/08/18 05:23 04/08/18 05:23 Additional Lab and Data: Laboratory Results - last 24 hr 04/07/18 04/08/18 04/08/18 20:57 05:23 05:23 WBC 6.6 RBC 2.70 L Hgb 8.2 L Hct 24 L MCV 89 MCH 30 MCHC 34 RDW 19 H Plt Count 143 L MPV 7.4 Sodium 133 L Potassium 4.3 Chloride 102 Carbon Dioxide 28 Anion Gap 3 BUN 42 H Creatinine 1.81 H Est GFR ( Amer) 42.9 Est GFR (Non-Af Amer) 35.5 BUN/Creatinine Ratio 23.2 H Glucose 80 POC Glucose (mg/dL) 115 H Calcium 8.2 L Magnesium 1.9 04/08/18 04/08/18 04/08/18 08:40 12:00 17:29 WBC RBC Hgb Hct MCV MCH MCHC RDW Plt Count MPV Sodium Potassium Chloride Carbon Dioxide Anion Gap BUN Creatinine Est GFR ( Amer) Est GFR (Non-Af Amer) BUN/Creatinine Ratio Glucose POC Glucose (mg/dL) 85 120 H 125 H Calcium Magnesium Microbiology and Other Data: Microbiology 03/01/18 14:50 Nasal Screen MRSA (PCR) - Final Nasal Mrsa Not Detected Assess/Plan/Problems-Billing Mr. 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 - Patient Problems (1) Anemia Comment: - Noted to have slightly down trending H&H. - Could be secondary to bloody sputum or repeat labs draws, therefore, patient will be given a break from lab draws tomorrow (2) Laryngeal cancer Comment: - S/P tracheostomy and laryngectomy. There are concerns about trachostomy care and availability of supplies which have been holding up discharge. (3) Ventricular tachycardia Comment: -Pt with likely NSTEMI post op as evidenced by EKG changes and reduced EF on echo. Continue ASA, plavix. LifeVest is in place. -Will need to follow up with cardiology after discharge- Dr. Chaudhari within 7 days after discharge (4) Atrial fibrillation Comment: -Chronic afib with HR controlled per tele -Pt continues to refuse anticoagulation (5) Malnutrition Comment: -Pt is eating ok on soft diet (6) Tracheostomy in place Comment: -Continue tracheostomy education (7) CAD (coronary artery disease) Comment: -It is thought the patient had a [place] post op -Continue ASA, plavix, metoprolol, Imdur and lipitor (8) Diabetes mellitus Comment: -Improved control -Continue to monitor FS as ordered - Continue Lantus at 8 units (9) HTN (hypertension) Comment: -BP WNL -Continue metoprolol and Lasix PO (10) DVT prophylaxis Comment: -SCD ordered (11) Full code status Comment: Status and Disposition: -Awaiting trach equipment Attending: Derrick Sandoval
[2018-04-08] MEDS: Atorvastatin* 40 MG TAB NG TUBE SCH (22:10)
[2018-04-08] MEDS: Terazosin CAP* 1 MG PO SCH (22:11)
[2018-04-09] MEDS: Insulin LISPRO* 1 UNITS UNIT SUBCUT SCH ×4 (08:01→22:36)
--- NOTE | 2018-04-09 08:31 | PN ---
Subjective Date of Service: 04/09/18 Interval History: Resting in bed with family at bedside. Anxious to go home. Reports he feels ready for discharge and feels he has enough support at home. Denies chest pain, palpitations, sob, abd pain, fever, chills, weakness Family History: Unchanged from Admission Social History: Unchanged from Admission Past Medical History: Unchanged from Admission Objective Active Medications: Acetaminophen (Tylenol Adult Liq*) 650 mg PEG TUBE Q4H PRN PRN Reason: PAIN Last Admin: 03/14/18 08:00 Dose: 650 mg Al Hydrox/Mg Hydrox/Simethicone (Maalox Plus*) 30 ml NG TUBE Q6H PRN PRN Reason: DYSPEPSIA Last Admin: 03/15/18 10:16 Dose: 30 ml Amiodarone HCl (Cordarone Tab*) 200 mg PO 0900 [facility] Last Admin: 04/08/18 09:18 Dose: 200 mg Aspirin (Aspirin 81 Mg Chew Tab*) 81 mg PO DAILY [facility] Last Admin: 04/08/18 09:17 Dose: 81 mg Atorvastatin Calcium (Lipitor*) 40 mg NG TUBE BEDTIME [facility] Last Admin: 04/08/18 22:10 Dose: 40 mg Bacitracin (Bacitracin Ointment*) 1 applic TOPICAL TID PRN PRN Reason: WOUND CARE Last Admin: 04/08/18 15:00 Dose: 1 applic Clopidogrel Bisulfate (Plavix Tab*) 75 mg PO DAILY [facility] Last Admin: 04/08/18 09:17 Dose: 75 mg Docusate Sodium (Colace Cap*) 100 mg PO BID PRN PRN Reason: CONSTIPATION Furosemide (Lasix Tab*) 20 mg PO DAILY [facility] Last Admin: 04/08/18 09:17 Dose: 20 mg Heparin Sodium (Porcine) (Heparin Flush Picc/Ml/Cvc(*)) 1 - 3 ml FLUSH 0600, 1800 [facility], [facility]; Protocol Last Admin: 04/08/18 17:37 Dose: 3 ml Insulin Glargine (Lantus(*)) 8 units SUBCUT Q24H [facility] Last Admin: 04/08/18 12:54 Dose: 8 units Insulin Human Lispro (Humalog*) 0 units SUBCUT ACHS [facility]; Protocol Last Admin: 04/09/18 08:01 Dose: Not Given Isosorbide Mononitrate (Imdur Er Tab*) 30 mg PO DAILY [facility] Last Admin: 04/08/18 09:17 Dose: 30 mg Lactobacillus Rhamnosus (Lactobacillus Acidophilus*) 1 tab PO BID [facility] Last Admin: 04/08/18 22:10 Dose: 1 tab Metformin HCl (Glucophage*) 500 mg PO 0800,1700 [facility] Last Admin: 04/08/18 17:36 Dose: 500 mg Metoprolol Tartrate (Lopressor Tab*) 12.5 mg PO Q12HR [facility] Last Admin: 04/08/18 22:09 Dose: 12.5 mg Ondansetron HCl (Zofran Inj*) 4 mg IV Q6H PRN PRN Reason: NAUSEA/VOMITING Last Admin: 04/01/18 20:36 Dose: 4 mg Senna (Senokot Tab*) 1 tab PO DAILY PRN PRN Reason: CONSTIPATION Terazosin HCl (Hytrin Cap*) 4 mg PO BEDTIME [facility] Last Admin: 04/08/18 22:11 Dose: 4 mg Vital Signs - 8 hr 04/09/18 03:37 O2 Sat by Pulse 100 Oximetry Oxygen Devices in Use Now: Tracheostomy Collar Appearance: Comfortable Eyes: No Scleral Icterus Ears/Nose/Mouth/Throat: Clear Oropharnyx, Mucous Membranes Moist Neck: NL Appearance and Movements; NL JVP Respiratory: Symmetrical Chest Expansion and Respiratory Effort, Clear to Auscultation Cardiovascular: NL Sounds; No Murmurs; No JVD, RRR, - - Bilateral pedal edema with left worse than right. Family reports this is improved from previously Abdominal: NL Sounds; No Tenderness; No Distention Lymphatic: No Cervical Adenopathy Extremities: No Clubbing, Cyanosis Skin: No Rash or Ulcers Neurological: Alert and Oriented x 3 Nutrition: Taking PO's - Nutrition: Malnutrition Diagnosis/Plan Malnutrition Assessment by Registered Dietitian: Malnutrition Assessment Clinical Characteristics Acute,Moderate Malnutrition Assessment: - 6.1% wt loss in past one month Criteria - mild temporal muscle wasting - intake likely <75% EEE x 7 days Malnutrition Assessment: 1. 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 follow for potential need for PEG placement 3. offer and begin po supplements when pt ready for some level of po intake Malnutrition Assessment: Goals 1. when safe for po intake, pt will tolerate least-restrictive diet texture without evidence of swallowing difficulty or aspiration 2. adequate po intake to maintain present wt and hydration status 3. achieve and maintain serum electrolytes within normal ranges 4. achieve and maintain regulation of bowel pattern; no constipation (or diarrhea) Result Diagrams: 04/10/18 08:15 04/10/18 08:15 Additional Lab and Data: Laboratory Results - last 24 hr . Microbiology and Other Data: Microbiology 03/01/18 14:50 Nasal Screen MRSA (PCR) - Final Nasal Mrsa Not Detected Assess/Plan/Problems-Billing Mr. 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 - Patient Problems (1) Anemia Comment: - Noted to have slightly down trending H&H. - Could be secondary to bloody sputum or repeat labs draws, therefore, patient will be given a break from lab draws tomorrow - Repeat H&H Tuesday (2) Laryngeal cancer Comment: - S/P tracheostomy and laryngectomy. There are concerns about trachostomy care and availability of supplies which have been holding up discharge. (3) Ventricular tachycardia Comment: -Pt with likely NSTEMI post op as evidenced by EKG changes and reduced EF on echo. Continue ASA, plavix. LifeVest is in place. -Will need to follow up with cardiology after discharge- Dr. Chaudhari within 7 days after discharge (4) Atrial fibrillation Comment: -Chronic afib with HR controlled per tele -Pt continues to refuse anticoagulation (5) Malnutrition Comment: -Pt is eating ok on soft diet (6) Tracheostomy in place Comment: -Continue tracheostomy education (7) CAD (coronary artery disease) Comment: -It is thought the patient had a OK post op -Continue ASA, plavix, metoprolol, Imdur and lipitor (8) Diabetes mellitus Comment: - Improved control -Continue to monitor FS as ordered - Continue Lantus at 8 units (9) HTN (hypertension) Comment: -BP WNL -Continue metoprolol and Lasix PO (10) DVT prophylaxis Comment: -SCD ordered (11) Full code status Comment: Status and Disposition: -Awaiting trach equipment
[2018-04-09] MEDS: Amiodarone TAB* 200 MG PO SCH (09:22)
[2018-04-09] MEDS: Metoprolol Tartrate TAB* 25 MG PO SCH ×2 (09:22→21:23)
[2018-04-09] MEDS: Aspirin 81 mg CHEW TAB* 81 MG TAB.CHEW PO SCH (09:22)
[2018-04-09] MEDS: Isosorbide Mononitrate ER TAB* 30 MG PO SCH (09:22)
[2018-04-09] MEDS: metFORMIN* 500 MG TAB PO SCH ×2 (09:22→17:40)
[2018-04-09] MEDS: Clopidogrel TAB* 75 MG PO SCH (09:22)
[2018-04-09] MEDS: Lactobacillus Acidophilus* 1 TAB PO SCH ×2 (09:22→21:23)
[2018-04-09] MEDS: Furosemide TAB* 20 MG PO SCH (09:22)
[2018-04-09] MEDS: Insulin GLARGINE(*) 1 UNITS UNIT SUBCUT SCH (13:24)
[2018-04-09] MEDS: Terazosin CAP* 1 MG PO SCH (21:22)
[2018-04-09] MEDS: Atorvastatin* 40 MG TAB NG TUBE SCH (21:23)
--- NOTE | 2018-04-09 22:36 | PN ---
Hospitalist Progress Note Date of Service: 04/09/18 Cross covering note Called to bedside of this pt who is an 87 yo M s/p total larygenctomy and tracheostomy by Dr. Stubbs on 03/06/2018, also hx of laryngeal cancer, CAD s/ p CABG on DAPT, who has had intermittent hemoptysis during his stay, increasing in the last week. PE: Pt seen at bedside roughly 15cc of thin clear bloody sputum on towel and with scan think clear psutum and blood pooled at trach site, no clots, otherwise patent cannula, no e/o bacterial suprainfectoin, no resp distress, RRR no MRG, has blt crackles at bases, otherwise well, on trach mask at 35% FiO2 and humidifier, following all commands, seems frustrated data -labs->h/h stable x 4 days, on lab holiday -recent CT chest-just with mild pleural effusions blt vs atelectasis, CXR unremarkable except for prior Overall, no e/o massive hemoptysis, I did call to ENT who know the pt well and have recently evaluated his trach site, initially they though blood 2/2 to him fiddling with the cannulation, though nursing says not, he is not self suctioning. Possibly combo of DAPT and continued trauma with friable tissues. Counseled nursing staff on what to watch for acute desats, change in sputum color or frequency, or new resp distress.
[2018-04-10] MEDS: Insulin LISPRO* 1 UNITS UNIT SUBCUT SCH ×4 (07:56→21:57)
[2018-04-10 08:34] LABS: ABS Basophils 0.1 10^3/ul (0-0.2); ABS Eosinophils 0.2 10^3/ul (0-0.6); ABS Lymphocytes 0.4 10^3/ul (1.0-4.8); ABS Monocytes 0.6 10^3/ul (0-0.8); ABS Neutrophils 6.5 10^3/ul (1.5-7.7); ABS Nucleated RBC 0 10^3/ul; Eosinophil % 2.1 %; Hematocrit 26 % (42-52); Hemoglobin 8.8 g/dl (14.0-18.0); Lymphocyte % 5.3 %; Mean Corpuscular HGB Conc 34 g/dl (31-36); Mean Corpuscular Hemoglobin 31 pg (27-31); Mean Corpuscular Volume 90 fL (80-94); Mean Platelet Volume 6.9 fL (7.4-10.4); Nucleated Red Blood Cells % 0.1; Platelet Count 164 10^3/ul (150-450); Red Blood Count 2.88 10^6/ul (4.00-5.40); Red Cell Distribution Width 19 % (10.5-15); White Blood Count 7.7 10^3/ul (3.5-10.8)
[2018-04-10 08:50] LABS: BUN/Creatinine Ratio 23.7 (8-20); Calcium 8.5 mg/dL (8.6-10.3); EGFR African American 46.5 (>60); EGFR Non-African American 38.4 (>60); Magnesium 1.7 mg/dL (1.9-2.7); Potassium 4.4 mmol/L (3.5-5.0)
[2018-04-10] MEDS: Clopidogrel TAB* 75 MG PO SCH (08:50)
[2018-04-10] MEDS: Furosemide TAB* 20 MG PO SCH (08:50)
[2018-04-10] MEDS: Amiodarone TAB* 200 MG PO SCH (08:51)
[2018-04-10] MEDS: Lactobacillus Acidophilus* 1 TAB PO SCH ×2 (08:51→20:49)
[2018-04-10] MEDS: Aspirin 81 mg CHEW TAB* 81 MG TAB.CHEW PO SCH (08:51)
[2018-04-10] MEDS: Isosorbide Mononitrate ER TAB* 30 MG PO SCH (08:51)
[2018-04-10] MEDS: metFORMIN* 500 MG TAB PO SCH ×2 (08:51→18:02)
[2018-04-10] MEDS: Metoprolol Tartrate TAB* 25 MG PO SCH ×2 (08:52→20:49)
[2018-04-10] MEDS: Insulin GLARGINE(*) 1 UNITS UNIT SUBCUT SCH (12:49)
[2018-04-10] MEDS ORDERED: Magnesium Sulfate 2 GM IV* 2 GM/50 ML BAG IVPB ONE (17:01)
--- NOTE | 2018-04-10 17:40 | PN ---
Subjective Date of Service: 04/10/18 Interval History: Overnight patient started having episodes of bloody sputum again from trach. Per documentation, Dr Brooks contacted ENT. Per nursing patient had not removed cannula and was not suctioning himself deeply prior to blood sputum. Today on assessment patient noted to have blood sputum again. Yesterday sputum was blood tinged but today more bloody. Patient reports mild shortness of breath which he reports is his baseline recently. Denies cp, palpitation, nausea, vomiting, diarrhea, fever, chills Family History: Unchanged from Admission Social History: Unchanged from Admission Past Medical History: Unchanged from Admission Objective Active Medications: Acetaminophen (Tylenol Adult Liq*) 650 mg PEG TUBE Q4H PRN PRN Reason: PAIN Last Admin: 03/14/18 08:00 Dose: 650 mg Al Hydrox/Mg Hydrox/Simethicone (Maalox Plus*) 30 ml NG TUBE Q6H PRN PRN Reason: DYSPEPSIA Last Admin: 03/15/18 10:16 Dose: 30 ml Amiodarone HCl (Cordarone Tab*) 200 mg PO 0900 [facility] Last Admin: 04/10/18 08:51 Dose: 200 mg Aspirin (Aspirin 81 Mg Chew Tab*) 81 mg PO DAILY [facility] Last Admin: 04/10/18 08:51 Dose: 81 mg Atorvastatin Calcium (Lipitor*) 40 mg NG TUBE BEDTIME [facility] Last Admin: 04/09/18 21:23 Dose: 40 mg Bacitracin (Bacitracin Ointment*) 1 applic TOPICAL TID PRN PRN Reason: WOUND CARE Last Admin: 04/08/18 15:00 Dose: 1 applic Clopidogrel Bisulfate (Plavix Tab*) 75 mg PO DAILY [facility] Last Admin: 04/10/18 08:50 Dose: 75 mg Docusate Sodium (Colace Cap*) 100 mg PO BID PRN PRN Reason: CONSTIPATION Furosemide (Lasix Tab*) 20 mg PO DAILY [facility] Last Admin: 04/10/18 08:50 Dose: 20 mg Heparin Sodium (Porcine) (Heparin Flush Picc/Ml/Cvc(*)) 1 - 3 ml FLUSH 0600, 1800 [facility]; Protocol Last Admin: 04/10/18 05:16 Dose: 1 ml Magnesium Sulfate (Magnesium Sulfate 2 Gm Iv*) 2 gm in 50 mls @ 50 mls/hr IVPB ONCE ONE Stop: 04/10/18 18:00 Insulin Glargine (Lantus(*)) 8 units SUBCUT Q24H [facility] Last Admin: 04/10/18 12:49 Dose: 8 units Insulin Human Lispro (Humalog*) 0 units SUBCUT ACHS [facility]; Protocol Last Admin: 04/10/18 12:28 Dose: Not Given Isosorbide Mononitrate (Imdur Er Tab*) 30 mg PO DAILY [facility] Last Admin: 04/10/18 08:51 Dose: 30 mg Lactobacillus Rhamnosus (Lactobacillus Acidophilus*) 1 tab PO BID [facility] Last Admin: 04/10/18 08:51 Dose: 1 tab Metformin HCl (Glucophage*) 500 mg PO 0800,1700 [facility] Last Admin: 04/10/18 08:51 Dose: 500 mg Metoprolol Tartrate (Lopressor Tab*) 12.5 mg PO Q12HR [facility] Last Admin: 04/10/18 08:52 Dose: 12.5 mg Ondansetron HCl (Zofran Inj*) 4 mg IV Q6H PRN PRN Reason: NAUSEA/VOMITING Last Admin: 04/01/18 20:36 Dose: 4 mg Senna (Senokot Tab*) 1 tab PO DAILY PRN PRN Reason: CONSTIPATION Terazosin HCl (Hytrin Cap*) 4 mg PO BEDTIME [facility] Last Admin: 04/09/18 21:22 Dose: 4 mg Vital Signs - 8 hr 04/10/18 04/10/18 04/10/18 09:37 09:51 11:34 Temperature 98.2 F 97.4 F Pulse Rate 63 49 Respiratory 16 18 16 Rate Blood Pressure 155/48 135/46 (mmHg) O2 Sat by Pulse 100 100 Oximetry 04/10/18 16:35 Temperature 97.9 F Pulse Rate 57 Respiratory 22 Rate Blood Pressure 149/39 (mmHg) O2 Sat by Pulse 100 Oximetry Oxygen Devices in Use Now: Tracheostomy Collar Appearance: Comfortable, NAD Eyes: No Scleral Icterus Ears/Nose/Mouth/Throat: Clear Oropharnyx, Mucous Membranes Moist Neck: NL Appearance and Movements; NL JVP, - - Bloody sputum from trach site Respiratory: Symmetrical Chest Expansion and Respiratory Effort, - - Sporadic rhonchi that decreased with cough Cardiovascular: NL Sounds; No Murmurs; No JVD, RRR, - - Bilateral pedal to ankle edema with right worse than left Abdominal: NL Sounds; No Tenderness; No Distention Lymphatic: No Cervical Adenopathy Extremities: No Clubbing, Cyanosis Skin: No Rash or Ulcers Neurological: Alert and Oriented x 3, NL Muscle Strength and Tone Nutrition: Taking PO's - Nutrition: Malnutrition Diagnosis/Plan Malnutrition Assessment by Registered Dietitian: Malnutrition Assessment Clinical Characteristics Acute,Moderate Malnutrition Assessment: - 6.1% wt loss in past one month Criteria - mild temporal muscle wasting - intake likely <75% EEE x 7 days Malnutrition Assessment: 1. follow NETWORK OPERATIONS TECHNICIAN re-evaluation of swallowing Interventions function; NPO at this time 2. follow for potential need for PEG placement 3. offer and begin po supplements when pt ready for some level of po intake Malnutrition Assessment: Goals 1. when safe for po intake, pt will tolerate least-restrictive diet texture without evidence of swallowing difficulty or aspiration 2. adequate po intake to maintain present wt and hydration status 3. achieve and maintain serum electrolytes within normal ranges 4. achieve and maintain regulation of bowel pattern; no constipation (or diarrhea) Result Diagrams: 04/10/18 08:15 04/10/18 08:15 Additional Lab and Data: Laboratory Results - last 24 hr 04/09/18 04/10/18 04/10/18 21:39 07:50 08:15 WBC RBC Hgb Hct MCV MCH MCHC RDW Plt Count MPV Neut % (Auto) Lymph % (Auto) Cowley % (Auto) Eos % (Auto) Baso % (Auto) Absolute Neuts (auto) Absolute Lymphs (auto) Absolute Monos (auto) Absolute Eos (auto) Absolute Basos (auto) Absolute Nucleated RBC Nucleated RBC % Sodium 135 Potassium 4.4 Chloride 104 Carbon Dioxide 26 Anion Gap 5 BUN 40 H Creatinine 1.69 H Est GFR ( Amer) 46.5 Est GFR (Non-Af Amer) 38.4 BUN/Creatinine Ratio 23.7 H Glucose 86 POC Glucose (mg/dL) 164 H 94 Calcium 8.5 L Magnesium 1.7 L 04/10/18 04/10/18 04/10/18 08:15 12:24 17:04 WBC 7.7 RBC 2.88 L Hgb 8.8 L Hct 26 L MCV 90 MCH 31 MCHC 34 RDW 19 H Plt Count 164 MPV 6.9 L Neut % (Auto) 84.6 Lymph % (Auto) 5.3 Cowley % (Auto) 7.2 Eos % (Auto) 2.1 Baso % (Auto) 0.8 Absolute Neuts (auto) 6.5 Absolute Lymphs (auto) 0.4 L Absolute Monos (auto) 0.6 Absolute Eos (auto) 0.2 Absolute Basos (auto) 0.1 Absolute Nucleated RBC 0 Nucleated RBC % 0.1 Sodium Potassium Chloride Carbon Dioxide Anion Gap BUN Creatinine Est GFR ( Amer) Est GFR (Non-Af Amer) BUN/Creatinine Ratio Glucose POC Glucose (mg/dL) 98 179 H Calcium Magnesium Microbiology and Other Data: Microbiology 03/25/18 11:41 Blood Venous Aerobic Blood Culture - Final No Growth Day 5 03/25/18 11:41 Blood Venous Anaerobic Blood Culture - Final No Growth Day 5 03/25/18 11:40 Blood Venous Aerobic Blood Culture - Final No Growth Day 5 03/25/18 11:40 Blood Venous Anaerobic Blood Culture - Final No Growth Day 5 03/01/18 14:50 Nasal Nasal Screen MRSA (PCR) - Final Mrsa Not Detected Assess/Plan/Problems-Billing Mr. 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 - Patient Problems (1) Anemia Comment: - H&H stable - Slight lower than baseline, but could be secondary to lengthy hospital stay and repeat lab draws (2) Laryngeal cancer Comment: - S/P tracheostomy and laryngectomy. There are concerns about trachostomy care and availability of supplies which have been holding up discharge. (3) Ventricular tachycardia Comment: -Pt with likely NSTEMI post op as evidenced by EKG changes and reduced EF on echo. Continue ASA, plavix. LifeVest is in place. -Will need to follow up with cardiology after discharge- Dr. Chaudhari within 7 days after discharge (4) Atrial fibrillation Comment: -Chronic afib with HR controlled per tele -Pt continues to refuse anticoagulation (5) Malnutrition Comment: -Pt is eating ok on soft diet (6) Tracheostomy in place Comment: -Continue tracheostomy education - Did have bloody sputum again overnight with no aggrivating factors identified ; H&H stable; Will repeat chest xray (7) CAD (coronary artery disease) Comment: -It is thought the patient had a OK post op -Continue ASA, plavix, metoprolol, Imdur and lipitor (8) Diabetes mellitus Comment: - Improved control -Continue to monitor FS as ordered - Continue Lantus at 8 units (9) HTN (hypertension) Comment: -BP WNL -Continue metoprolol and Lasix PO (10) DVT prophylaxis Comment: -SCD ordered (11) Full code status Comment: - Discussed code status with patient today and we would like to continue to be a Full Code Status and Disposition: -Awaiting trach equipment Attending: Derrick Sandoval
[2018-04-10] MEDS: Atorvastatin* 40 MG TAB NG TUBE SCH (20:49)
[2018-04-10] MEDS: Terazosin CAP* 1 MG PO SCH (20:49)
--- NOTE | 2018-04-11 00:24 | DS ---
INTERIM DISCHARGE SUMMARY: DATE OF ADMISSION: 03/01/18 DATE OF DISCHARGE: Unknown. PRIMARY CARE PROVIDER: Maci Mendoza NP. OTHER PROVIDER: Chato Stubbs MD PRODUCT DESIGN MANAGER: Philip Chaudhari. ATTENDING PROVIDER: Dr. Lloyd * (DICTATED BY CHRISTINE SOARES) PRIMARY DIAGNOSES: 1. Laryngeal cancer, status post tracheostomy, laryngectomy. 2. Ventricular tachycardia. SECONDARY DIAGNOSES: 1. Ventricular tachycardia, likely NSTEMI postoperatively this admission. 2. Atrial fibrillation. 3. Coronary artery disease. 4. Diabetes mellitus. 5. Hypertension. 6. History of myocardial infarction, coronary artery bypass grafting x2. 7. Ischemic cardiomyopathy. 8. Peripheral vascular disease. 9. Laryngeal cancer. 10. Hyperlipidemia. 11. Chronic kidney disease, stage III. 12. Acute systolic heart failure. STUDIES WHILE IN THE HOSPITAL: 1. Chest x-ray, 03/01/18: Tracheostomy tube in place. Stigmata of probable chronic obstructive pulmonary disease and emphysema. No radiologic evidence for pneumonia. 2. Venous Doppler, right arm, 03/15/18: No evidence of right upper extremity DVT is noted. 3. Transthoracic echocardiogram, 03/15/18. Conclusion: The left ventricular chamber size is normal. Mild concentric left ventricular hypertrophy is observed. Unable to estimate left ventricular ejection fraction. Resting rapid A-Fib overall. EF is probably moderately reduced with anterior/apical and septal wall hypokinesis. Post-surgical hypokinesis of the interventricular septum is observed, consistent with coronary artery bypass. The assessment of diastolic function is nondiagnostic. The left atrium is moderately dilated. The right atrium is moderately dilated. There is xqsbk-ks-emsr aortic regurgitation. There is tlfq-uv-aweumeky mitral regurgitation, milder side. There is [id number]-[id number] tricuspid regurgitation. The right ventricular systolic pressure is estimated at 52 mmHg. There is evidence of moderate pulmonary hypertension. There are changes noted when compared to the previous study done on 05/04/16, LVEF is much less now from 55% to 60% then. 4. Esophageal x-ray, 03/21/18. Impression: There is likely a postoperative diverticula in the anterior portion of the esophagus, with no free flow of contrast into the trachea. No definite tracheoesophageal fistula is noted. 5. Chest CT, 04/05/18. Impression: Ofrhv-mr-pebxstms size bilateral pleural effusions and dependent lower lobe infiltrate suggestive of atelectasis, less likely pneumonia. DISCHARGE MEDICATIONS: Home medications: 1. Terazosin HCL 2 tabs p.o. daily. 2. Imdur 30 mg p.o. daily. 3. Vitamin B12 one tab p.o. daily. 4. Atorvastatin 40 mg at bedtime. 5. Aspirin 81 mg 1 tab p.o. daily. Discontinued home medications: 1. Amlodipine 5 mg p.o. daily. 2. Lisinopril 1 tab p.o. daily. 3. Spironolactone 25 mg p.o. q.a.m. New home medications: 1. Amiodarone 200 mg b.i.d. x2 weeks, follow up with Dr. Chaudhari within 1 week of discharge. 2. Bacitracin topical t.i.d. p.r.n. to stoma. 3. Clopidogrel 75 mg p.o. daily. 4. Furosemide 20 mg p.o. daily. 5. Insulin glargine 8 units subcu q.24 hours. 6. Metformin 500 mg b.i.d. 7. Metoprolol tartrate 12.5 mg p.o. q.12 hours. HISTORY OF PRESENT ILLNESS/HOSPITAL COURSE: Mr. Maher is an 87-year-old male with a past medical history as described above, who was admitted on 03/01/18 post tracheostomy for recurrent laryngeal cancer. Tracheostomy was performed by Dr. Stubbs and the patient was admitted. After tracheostomy, it was recommended by Dr. Stubbs that the patient receive a total laryngectomy. The patient agreed to this plan. Total laryngectomy due to squamous cell carcinoma of the larynx, stage [id number], was performed on 03/07/18. He was admitted to the ICU for monitoring of the airway. Eventually, he was moved onto the medical floor with telemetry monitoring. Respiratory Therapy was working with the patient throughout his stay for management of his tracheostomy. His diabetes was managed with glargine throughout his stay. Fingersticks were done to check his glucose levels. He was eventually started back on his metformin home medication. The patient's atrial fibrillation was rate controlled and he refused anticoagulation. He was on aspirin at home due to refusal, which was continued throughout his stay. Coronary artery disease was stable and maintained with metoprolol, atorvastatin, and aspirin. The patient's blood pressure was monitored daily and his hypertension was managed. The patient was found to have approximately 53 beats of V-tach at one point. Cardiology was consulted. The patient was started on amiodarone drip. Echocardiogram revealed ejection fraction of 35% to 40%. It was suspected that the patient had acute coronary syndrome postoperatively as evidenced by EKG changes, decreased ejection fraction, and wall motion abnormality on the echo. It was suspected that the LAD was affected. Aspirin and Plavix were added to the patient's medications and LifeVest was ordered and put in place. The patient was on NG tube for some time. This was eventually discontinued and he was placed on a soft diet, advance as tolerated. The patient had some shortness of breath and lower extremity edema at some point during his stay. He was found to be fluid overloaded due to discontinuation of his Lasix, which was stopped because of elevation in creatinine. The patient was eventually restarted on Lasix until lower extremity edema was under control. The patient had intermittent bleeding from the tracheostomy site; this occurred once because of over-suctioning and was quickly resolved. The patient is awaiting trach supplies for a laryngectomy tube, size 8, 55 mm. At the time of this note , he denies chest pain, shortness of breath. He states that he is occasional coughing. He denies abdominal pain, nausea, vomiting, diarrhea, lower extremity pain. He continues to have pedal edema. Mr. Maher is stable for discharge. Vital signs are temperature 97.9, oral; heart rate 57, respiratory rate 22, oxygen saturation 100%, blood pressure 149/39. PHYSICAL EXAMINATION: General: Mr. Maher is a well-developed elderly white man , who is sitting at the edge of his bed. He is in no acute distress. HEENT: Visual murray are grossly intact. Pupils are equally round and reactive to light. His extraocular movements are intact. Sclerae is without icterus. Hearing is grossly intact. Oral mucous membranes are moist. Pharynx is clear. Neck: stoma intact, without erythema, discharge. Cardiovascular: S1 and S2 present, with regular rate. No murmurs, rubs or gallops. Respiratory: Symmetrical chest expansion. No use of accessory muscles. Lungs are clear to auscultation. There are no rhonchi, wheezes or rubs. Abdomen: Bowel sounds in all quadrants. Abdomen is soft and nontender to palpation. There is no hepatosplenomegaly. Extremities: Skin is warm and smooth bilaterally. There is no clubbing or cyanosis. Upper extremities are without edema. Bilateral lower extremities with 2+ pitting pedal edema. Neuro: Awake, alert, and oriented. He is able to move all of his extremities. Motor strength is 5/5 in upper and lower extremities bilaterally. He has a steady gait, with no impairments. DISCHARGE PLAN: Mr. Maher will be discharged home. ACTIVITY: As tolerated. DIET: Heart-healthy, ADA. MEDICATIONS: As above. EDUCATION: 1. Follow up with primary care physician in 4 to 7 days. 2. Follow up with Dr. Chaudhari within 1 week, discuss amiodarone dose. 3. Follow up with Dr. Stubbs within 1 week. 4. Continue tracheostomy management per instructions. 5. Continue wearing LifeVest until instructed otherwise by Cardiology. 6. Return to the ER or nearest hospital if he experiences any worsening of symptoms, shortness of breath, lightheadedness, dizziness, chest discomfort, high fevers, chills, night sweats, loss of consciousness or any other worrisome signs or symptoms. This is a summarized report of a complex medical history and hospital stay. For further details, please see the entire medical record. TIME SPENT: Approximately 45 minutes were spent on this discharge, greater than half of that time was spent [id number] with the patient discussing discharge plans and instructions. CHRISTINE SOARES [id number]/[facility] #: [id number] [place]
[2018-04-11] MEDS: Insulin LISPRO* 1 UNITS UNIT SUBCUT SCH ×4 (08:29→21:16)
[2018-04-11] MEDS: metFORMIN* 500 MG TAB PO SCH ×2 (08:39→17:57)
[2018-04-11] MEDS: Amiodarone TAB* 200 MG PO SCH (08:39)
[2018-04-11] MEDS: Metoprolol Tartrate TAB* 25 MG PO SCH ×2 (08:39→21:01)
[2018-04-11] MEDS: Isosorbide Mononitrate ER TAB* 30 MG PO SCH (08:39)
[2018-04-11] MEDS: Lactobacillus Acidophilus* 1 TAB PO SCH ×2 (08:39→21:01)
[2018-04-11] MEDS: Furosemide TAB* 20 MG PO SCH (08:39)
[2018-04-11] MEDS: Aspirin 81 mg CHEW TAB* 81 MG TAB.CHEW PO SCH (08:39)
[2018-04-11] MEDS: Clopidogrel TAB* 75 MG PO SCH (08:39)
[2018-04-11] MEDS: Insulin GLARGINE(*) 1 UNITS UNIT SUBCUT SCH (13:37)
--- NOTE | 2018-04-11 14:12 | CONSULT ---
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 Had a partial resection 2016 and was treated with radiation. Was admitted 03/01/18 for tracheostomy placement. 03/07/18 he underwent a laryngectomy. His post operative course was complicated by a run of VT for which a life vest was placed and an IA. A repeat ECHO showed a decreased EF to 35-40% mod pul HTN mild-mod TR and MR. He has had trouble with the trach site coughing up blood and [facility]. PHM significant for DM, HTN, CAD s/p PCI and CABG, afib, VIKKI and systolic CHF. CXR CHF, CT chest bilateral pulmonary effusions. BUN /CR 40/1.69 egfr 38., tprot 6.2, alb 2.8, BNP >1300, CRP 9.46. Lab Values: Abnormal Lab Results 04/10/18 04/10/18 04/11/18 17:04 20:49 07:53 POC Glucose (mg/dL) 179 H 112 H 81 04/11/18 12:40 POC Glucose (mg/dL) 98 Laboratory Last Values WBC 7.7 10^3/ul (3.5-10.8) 04/10/18 08:15 RBC 2.88 10^6/ul (4.00-5.40) L 04/10/18 08:15 Hgb 8.8 g/dl (14.0-18.0) L 04/10/18 08:15 Hct 26 % (42-52) L 04/10/18 08:15 MCV 90 fL (80-94) 04/10/18 08:15 MCH 31 pg (27-31) 04/10/18 08:15 MCHC 34 g/dl (31-36) 04/10/18 08:15 RDW 19 % (10.5-15) H 04/10/18 08:15 Plt Count 164 10^3/ul (150-450) 04/10/18 08:15 MPV 6.9 fL (7.4-10.4) L 04/10/18 08:15 Neut % (Auto) 84.6 % 04/10/18 08:15 Lymph % (Auto) 5.3 % 04/10/18 08:15 [place] % (Auto) 7.2 % 04/10/18 08:15 Eos % (Auto) 2.1 % 04/10/18 08:15 Baso % (Auto) 0.8 % 04/10/18 08:15 Absolute Neuts (auto) 6.5 10^3/ul (1.5-7.7) 04/10/18 08:15 Absolute Lymphs (auto) 0.4 10^3/ul (1.0-4.8) L 04/10/18 08:15 Absolute Monos (auto) 0.6 10^3/ul (0-0.8) 04/10/18 08:15 Absolute Eos (auto) 0.2 10^3/ul (0-0.6) 04/10/18 08:15 Absolute Basos (auto) 0.1 10^3/ul (0-0.2) 04/10/18 08:15 Absolute Nucleated RBC 0 10^3/ul 04/10/18 08:15 Nucleated RBC % 0.1 04/10/18 08:15 INR (Anticoag Therapy) 0.96 (0.77-1.02) 03/27/18 06:05 APTT 30.2 seconds (26.0-36.3) 03/27/18 06:05 Sodium 135 mmol/L (135-145) 04/10/18 08:15 Potassium 4.4 mmol/L (3.5-5.0) 04/10/18 08:15 Chloride 104 mmol/L (101-111) 04/10/18 08:15 Carbon Dioxide 26 mmol/L (22-32) 04/10/18 08:15 Anion Gap 5 mmol/L (2-11) 04/10/18 08:15 BUN 40 mg/dL (6-24) H 04/10/18 08:15 Creatinine 1.69 mg/dL (0.67-1.17) H 04/10/18 08:15 Est GFR ( Amer) 46.5 (>60) 04/10/18 08:15 Est GFR (Non-Af Amer) 38.4 (>60) 04/10/18 08:15 BUN/Creatinine Ratio 23.7 (8-20) H 04/10/18 08:15 Glucose 86 mg/dL (70-100) 04/10/18 08:15 POC Glucose (mg/dL) 98 mg/dL (70-100) 04/11/18 12:40 Glucose Meter Confirm 160 mg/dL (70-100) H 03/14/18 11:38 Lactic Acid 2.0 mmol/L (0.5-2.0) 03/25/18 15:50 Calcium 8.5 mg/dL (8.6-10.3) L 04/10/18 08:15 Phosphorus 3.8 mg/dL (2.5-5.0) 03/27/18 06:05 Magnesium 1.7 mg/dL (1.9-2.7) L 04/10/18 08:15 Total Bilirubin 0.70 mg/dL (0.2-1.0) 03/27/18 06:05 AST 19 U/L (13-39) 03/27/18 06:05 ALT 16 U/L (7-52) 03/27/18 06:05 Alkaline Phosphatase 65 U/L (34-104) 03/27/18 06:05 Troponin I 0.03 ng/mL (<0.04) 03/15/18 12:09 C-React Prot High Sens 9.46 mg/L (<2.00) H 03/25/18 15:50 B-Natriuretic Peptide > 1300 pg/mL (<=100) H 04/03/18 13:30 Total Protein 6.2 g/dL (6.4-8.9) L 03/27/18 06:05 Albumin 2.8 g/dL (3.2-5.2) L 03/27/18 06:05 Globulin 3.4 g/dL (2-4) 03/27/18 06:05 Albumin/Globulin Ratio 0.8 (1-3) L 03/27/18 06:05 Prealbumin 11 mg/dL (18-38) L 03/20/18 11:42 TSH 0.17 mcIU/mL (0.34-5.60) L 03/15/18 23:11 Free T4 1.36 ng/dL (0.61-1.12) H 03/16/18 05:25 Free T3 2.20 pg/mL (2.5-3.9) L 03/16/18 05:25 Urine Color Yellow 04/03/18 14:35 Urine Appearance Clear 04/03/18 14:35 Urine pH 8.0 (5-9) 04/03/18 14:35 Ur Specific [place] 1.013 (1.010-1.030) 04/03/18 14:35 Urine Protein 1+(30 mg/dl) (Negative) A 04/03/18 14:35 Urine Ketones Negative (Negative) 04/03/18 14:35 Urine Blood Negative (Negative) 04/03/18 14:35 Urine Nitrate Negative (Negative) 04/03/18 14:35 Urine Bilirubin Negative (Negative) 04/03/18 14:35 Urine Urobilinogen Negative (Negative) 04/03/18 14:35 Ur Leukocyte Esterase Negative (Negative) 04/03/18 14:35 Urine WBC (Auto) Absent (Absent) 04/03/18 14:35 Urine RBC (Auto) 1+(3-5/hpf) (Absent) A 04/03/18 14:35 Urine Bacteria Absent (Absent) 04/03/18 14:35 Ur Creatinine Concen 30.01 mg/dL 04/04/18 14:03 U Sodium Concentration 103 mmol/L 04/04/18 14:03 Urine Glucose 1+(50 mg/dl) (Negative) A 04/03/18 14:35 - Objective Active Medications: Acetaminophen (Tylenol Adult Liq*) 650 mg PEG TUBE Q4H PRN PRN Reason: PAIN Last Admin: 03/14/18 08:00 Dose: 650 mg Al Hydrox/Mg Hydrox/Simethicone (Maalox Plus*) 30 ml NG TUBE Q6H PRN PRN Reason: DYSPEPSIA Last Admin: 03/15/18 10:16 Dose: 30 ml Amiodarone HCl (Cordarone Tab*) 200 mg PO 0900 [facility] Last Admin: 04/11/18 08:39 Dose: 200 mg Aspirin (Aspirin 81 Mg Chew Tab*) 81 mg PO DAILY [facility] Last Admin: 04/11/18 08:39 Dose: 81 mg Atorvastatin Calcium (Lipitor*) 40 mg NG TUBE BEDTIME [facility] Last Admin: 04/10/18 20:49 Dose: 40 mg Bacitracin (Bacitracin Ointment*) 1 applic TOPICAL TID PRN PRN Reason: WOUND CARE Last Admin: 04/08/18 15:00 Dose: 1 applic Clopidogrel Bisulfate (Plavix Tab*) 75 mg PO DAILY [facility] Last Admin: 04/11/18 08:39 Dose: 75 mg Docusate Sodium (Colace Cap*) 100 mg PO BID PRN PRN Reason: CONSTIPATION Furosemide (Lasix Tab*) 20 mg PO DAILY [facility] Last Admin: 04/11/18 08:39 Dose: 20 mg Heparin Sodium (Porcine) (Heparin Flush Picc/Ml/Cvc(*)) 1 - 3 ml FLUSH 0600, 1800 [facility]; Protocol Last Admin: 04/11/18 05:58 Dose: 1 ml Insulin Glargine (Lantus(*)) 8 units SUBCUT Q24H [facility] Last Admin: 04/11/18 13:37 Dose: 8 units Insulin Human Lispro (Humalog*) 0 units SUBCUT ACHS [facility]; Protocol Last Admin: 04/11/18 12:47 Dose: Not Given Isosorbide Mononitrate (Imdur Er Tab*) 30 mg PO DAILY [facility] Last Admin: 04/11/18 08:39 Dose: 30 mg Lactobacillus Rhamnosus (Lactobacillus Acidophilus*) 1 tab PO BID [facility] Last Admin: 04/11/18 08:39 Dose: 1 tab Metformin HCl (Glucophage*) 500 mg PO 0800,1700 [facility] Last Admin: 04/11/18 08:39 Dose: 500 mg Metoprolol Tartrate (Lopressor Tab*) 12.5 mg PO Q12HR [facility] Last Admin: 04/11/18 08:39 Dose: 12.5 mg Ondansetron HCl (Zofran Inj*) 4 mg IV Q6H PRN PRN Reason: NAUSEA/VOMITING Last Admin: 04/01/18 20:36 Dose: 4 mg Senna (Senokot Tab*) 1 tab PO DAILY PRN PRN Reason: CONSTIPATION Terazosin HCl (Hytrin Cap*) 4 mg PO BEDTIME [facility] Last Admin: 04/10/18 20:49 Dose: 4 mg Vital Signs: Vital Signs: Temp Pulse Resp BP Pulse Ox 98.1 F 80 18 148/48 100 04/11/18 11:30 04/11/18 11:30 04/11/18 11:30 04/11/18 11:30 04/11/18 11:30 Patient Weight: Weight 65.771 kg Intake and Output: Intake & Output 04/09/18 04/10/18 04/11/18 04/12/18 06:59 06:59 06:59 06:59 Intake Total 1440 1720 2050 360 Output Total 8828 164 6338 Balance -50 1270 450 360 Weight 63.73 kg 64.909 kg 65.771 kg Intake: IV Fluids 30 NS 30 IVPB 50 magnesium sulfate 50 Oral 1440 1720 1970 360 Output: Urine 7480 146 4293 Other: Estimated Void Small # Bowel Movements 1 0 Estimated Stool Amount Large Small # Voids 0 0 ADLs: Meal Record Start: 03/01/18 13: 47 Freq: 09,13,18 Status: Inactive Protocol: Created 03/01/18 13:47 System (Rec: 03/01/18 13:47 System ICU-C16) Document 03/01/18 18:00 [id number] (Rec: 03/01/18 18:11 SIU6218 ICU-C16) Document 03/02/18 10:00 RIZ7427 (Rec: 03/02/18 10:11 BAE9601 ICU-C16) Document 03/02/18 13:00 TEE3509 (Rec: 03/02/18 16:04 GQR2526 ICU-C16) Document 03/02/18 18:00 TKU1408 (Rec: 03/02/18 19:38 LNW3093 ICU-C16) ADLs: Meal Record Start: 03/03/18 08: 01 Freq: 09,13,18 Status: Inactive Protocol: Created 03/03/18 08:01 VUQ7631 (Rec: 03/03/18 08:01 XSO1581 ICU-C25) Document 03/03/18 09:00 OUG9637 (Rec: 03/03/18 10:41 KWD3111 ICU-C15) Document 03/03/18 13:00 EJL8685 (Rec: 03/03/18 14:09 SWG6995 ICU-C15) Document 03/03/18 18:36 QGY3085 (Rec: 03/03/18 18:37 FKA7491 ICU-C15) Document 03/04/18 09:00 WVL7234 (Rec: 03/04/18 09:48 OLY9087 ICU-C15) Document 03/04/18 13:00 MTC4224 (Rec: 03/04/18 13:33 VDU0539 ICU-C11) Document 03/05/18 10:02 DQG8751 (Rec: 03/05/18 10:03 MNB9908 ICU-M29) Document 03/05/18 14:13 ULG2642 (Rec: 03/05/18 14:13 HWM5327 ICU-C12) Document 03/05/18 18:52 GVD8369 (Rec: 03/05/18 18:52 ZAY7351 ICU-C25) Document 03/06/18 09:00 MZU5467 (Rec: 03/06/18 11:52 AVW0518 ICU-C07) Document 03/06/18 13:00 QNO2237 (Rec: 03/06/18 13:45 PFP2002 ICU-C07) Document 03/07/18 09:00 VTI4979 (Rec: 03/07/18 09:26 TVE7312 ICU-L03) Document 03/07/18 17:50 XWW5628 (Rec: 03/07/18 17:50 HID9333 ICU-L03) Document 03/08/18 09:00 ASI9024 (Rec: 03/08/18 10:02 OHO2939 ICU-C15) Document 03/08/18 13:00 UOB4526 (Rec: 03/08/18 14:32 VWF7900 ICU-C15) Document 03/08/18 18:00 DKS7483 (Rec: 03/08/18 18:14 JYE9803 ICU-C15) ADLs: Meal Record Start: 03/15/18 16: 35 Freq: 09,13,18 Status: Inactive Protocol: Created 03/15/18 16:35 TIQ4889 (Rec: 03/15/18 16:35 UCX3139 ICU-M25) Document 03/15/18 17:51 OTU0397 (Rec: 03/15/18 17:51 WZJ3767 ICU-C25) Document 03/16/18 09:00 GOG3652 (Rec: 03/16/18 12:57 UBE8116 ICU-C06) Document 03/16/18 13:00 IRH4686 (Rec: 03/16/18 14:55 FJU9260 ICU-C06) Document 03/17/18 09:00 OOU3710 (Rec: 03/17/18 10:00 XQL0688 ICU-C07) Document 03/17/18 13:05 QLZ8105 (Rec: 03/17/18 13:44 RCE1289 ICU-C08) ADLs: Meal Record Start: 03/17/18 15: 42 Freq: DAILY@0900,1400,1800 Status: Active Protocol: Created 03/17/18 15:42 TXI3555 (Rec: 03/17/18 15:42 CFI5583 ICU-C08) Document 03/17/18 18:00 ZEG0265 (Rec: 03/17/18 22:06 ZML7320 TELE-C35) Document 03/18/18 09:00 KSR5427 (Rec: 03/18/18 11:38 IPF7315 TELE-C09) Document 03/18/18 14:00 YSW3890 (Rec: 03/18/18 14:43 OYX7516 TELE-C09) Document 03/18/18 18:00 TWZ6389 (Rec: 03/18/18 21:39 UEG3885 TELE-C07) Document 03/19/18 09:00 MDY1035 (Rec: 03/19/18 09:06 IYT2209 TELE-C05) Document 03/19/18 14:00 QXB8281 (Rec: 03/19/18 14:50 GKE9757 TELE-C09) Document 03/19/18 18:00 MHV5690 (Rec: 03/19/18 21:28 EMI9656 TELE-C07) Document 03/20/18 11:06 LNB0962 (Rec: 03/20/18 11:07 VOQ1609 TELE-C10) Document 03/20/18 14:21 XJG7857 (Rec: 03/20/18 14:21 RBX9949 TELE-C11) Document 03/20/18 18:00 SFX3656 (Rec: 03/20/18 21:30 OPE3148 TELE-C07) Document 03/21/18 09:00 NWS2757 (Rec: 03/21/18 15:00 QXA0386 TELE-C13) Document 03/21/18 14:00 ILE7836 (Rec: 03/21/18 15:15 WXY6435 TELE-C13) Document 03/21/18 18:00 VYD1255 (Rec: 03/21/18 18:48 LBK4913 TELE-C01) Document 03/22/18 09:00 ZEV1010 (Rec: 03/22/18 14:48 TTC1645 TELE-C09) Document 03/22/18 14:00 BIK8744 (Rec: 03/22/18 15:07 BZK9266 TELE-C08) Document 03/22/18 18:00 SXH9239 (Rec: 03/22/18 20:00 FBQ5581 TELE-C13) Document 03/23/18 09:00 VFG4034 (Rec: 03/23/18 14:26 GCY0194 TELE-C10) Document 03/23/18 14:00 ZFI6698 (Rec: 03/23/18 14:41 FJP8022 TELE-C10) Document 03/23/18 17:53 RLK2424 (Rec: 03/23/18 17:53 TVR9484 TELE-C05) Document 03/24/18 09:00 HUF6663 (Rec: 03/24/18 15:26 EYS0777 TELE-C05) Document 03/24/18 14:00 TXA5925 (Rec: 03/24/18 15:27 LGG3807 TELE-C05) Document 03/24/18 18:00 FXN8280 (Rec: 03/24/18 18:35 IFF4596 TELE-C01) Document 03/25/18 09:00 KBN2402 (Rec: 03/25/18 15:09 YHL2860 TELE-C09) Document 03/25/18 14:00 WZL6209 (Rec: 03/25/18 15:10 ENL1292 TELE-C09) Document 03/25/18 18:00 LYA0488 (Rec: 03/25/18 18:49 KEJ2991 TELE-C07) Document 03/26/18 08:57 ZQA6550 (Rec: 03/26/18 08:58 NTK8788 TELE-M11) Document 03/26/18 14:00 BTO7977 (Rec: 03/26/18 14:04 IHY3965 TELE-C09) Document 03/26/18 18:00 BIZ5845 (Rec: 03/26/18 18:29 HIF8358 TELE-C07) Document 03/27/18 09:00 YWO7902 (Rec: 03/27/18 12:04 ZFA2240 TELE-C07) Document 03/27/18 14:00 LKI8260 (Rec: 03/27/18 14:36 RKE5002 TELE-C13) Document 03/27/18 21:04 RRI8365 (Rec: 03/27/18 21:04 JYK2442 TELE-C10) Document 03/28/18 09:00 ZYV2297 (Rec: 03/28/18 11:20 PKL3981 TELE-C13) Document 03/28/18 14:00 YFY6865 (Rec: 03/28/18 14:05 MBY9847 TELE-C13) Document 03/28/18 20:37 WTB7941 (Rec: 03/28/18 20:37 FUI2138 TELE-C05) Document 03/29/18 08:00 EXX2180 (Rec: 03/29/18 13:24 JFE9769 TELE-C07) Document 03/29/18 09:00 SLS2121 (Rec: 03/29/18 15:27 IIR3659 TELE-C07) Document 03/29/18 14:00 FHX3794 (Rec: 03/29/18 15:30 YGA0601 TELE-C07) Document 03/29/18 18:00 DBS8941 (Rec: 03/29/18 21:26 SBI9163 TELE-C03) Document 03/30/18 09:00 EJM2098 (Rec: 03/30/18 10:06 JSK8604 TELE-C13) Document 03/30/18 14:00 VSD9022 (Rec: 03/30/18 14:02 STR7438 TELE-C05) Document 03/30/18 21:26 OVQ1249 (Rec: 03/30/18 21:26 NWC4339 TELE-C13) Document 03/31/18 09:00 CUB6251 (Rec: 03/31/18 10:25 EPJ8061 TELE-C05) Document 03/31/18 14:00 ZIU3476 (Rec: 03/31/18 14:20 HVB3450 TELE-C13) Document 03/31/18 18:00 MGU1808 (Rec: 03/31/18 18:37 BOR8997 TELE-C01) Document 04/01/18 09:00 ZJQ9419 (Rec: 04/01/18 11:29 PZL0946 TELE-C09) Document 04/01/18 14:00 RGJ9200 (Rec: 04/01/18 14:30 URC1560 TELE-C09) Document 04/01/18 18:00 VRY5570 (Rec: 04/01/18 19:55 KQU7767 TELE-C05) Document 04/02/18 09:00 OCZ6893 (Rec: 04/02/18 11:09 KNS2497 TELE-C10) Document 04/02/18 14:00 GJB1101 (Rec: 04/02/18 14:47 JAX4216 TELE-C10) Document 04/02/18 22:23 EEA3604 (Rec: 04/02/18 22:24 PUL3892 TELE-C09) Document 04/03/18 09:00 RJJ0871 (Rec: 04/03/18 10:17 ZKN6092 TELE-C09) Document 04/03/18 14:00 EUB0645 (Rec: 04/03/18 15:14 MUB9530 TELE-C09) Document 04/03/18 18:00 YJG9255 (Rec: 04/03/18 20:46 WOU3073 TELE-C01) Document 04/04/18 09:00 EOQ1031 (Rec: 04/04/18 09:59 UUN8447 TELE-C10) Document 04/04/18 14:00 YJO6617 (Rec: 04/04/18 14:17 VQW7963 TELE-C10) Document 04/04/18 21:05 RFZ5960 (Rec: 04/04/18 21:05 RBS5890 TELE-C08) Document 04/05/18 09:00 VFY6179 (Rec: 04/05/18 14:39 ELM5987 TELE-C05) Document 04/05/18 14:00 BWL6629 (Rec: 04/05/18 14:45 VLQ4978 TELE-C05) Document 04/06/18 09:00 XIY4258 (Rec: 04/06/18 18:25 VWH9270 MED-C09) Document 04/06/18 14:00 BMX0396 (Rec: 04/06/18 18:25 BQB7655 MED-C09) Document 04/06/18 18:00 RBM2475 (Rec: 04/06/18 19:14 FKX5953 MED-C09) Document 04/07/18 09:00 KOA4776 (Rec: 04/07/18 12:40 LFW5958 MED-C04) Document 04/07/18 14:00 OWK9957 (Rec: 04/07/18 16:07 AKV6789 MED-C13) Document 04/07/18 18:00 OPU8582 (Rec: 04/07/18 18:35 WWT8947 MED-C14) Document 04/08/18 09:00 WUL3766 (Rec: 04/08/18 09:54 IAZ1066 MED-C09) Document 04/08/18 14:00 YWM8678 (Rec: 04/08/18 18:54 BJJ3927 MED-C11) Document 04/08/18 18:00 IAW6457 (Rec: 04/08/18 18:54 HMR0317 MED-C11) Document 04/09/18 09:00 KLF5939 (Rec: 04/09/18 10:08 CRZ6818 MED-C11) Document 04/09/18 13:53 LPU3534 (Rec: 04/09/18 13:53 ODS6933 MED-C11) Document 04/09/18 18:00 QIM4872 (Rec: 04/09/18 18:19 ZZN8084 MED-C09) Document 04/10/18 09:00 XOM5775 (Rec: 04/10/18 10:08 RFJ1415 MED-C09) Document 04/10/18 13:52 GVM5307 (Rec: 04/10/18 13:53 RNT2516 MED-C09) Document 04/10/18 18:00 FAK6055 (Rec: 04/10/18 22:45 AXO7636 MED-C13) Document 04/11/18 09:00 CZW4358 (Rec: 04/11/18 10:16 DSL4339 MED-C09) Intake and Output Start: 03/01/18 13: 47 Freq: 06,14,2200 Status: Inactive Protocol: Created 03/01/18 13:47 System (Rec: 03/01/18 13:47 System ICU-C16) Document 03/01/18 18:00 WCN9943 (Rec: 03/01/18 18:10 ICR4739 ICU-C16) Document 03/01/18 20:00 JJY1299 (Rec: 03/01/18 20:11 CWA1484 ICU-C16) Document 03/01/18 21:00 QWS6530 (Rec: 03/01/18 22:03 ZDV3011 ICU-C16) Document 03/02/18 01:00 FWD7169 (Rec: 03/02/18 01:39 QCF1563 ICU-C16) Document 03/02/18 04:00 RQB8936 (Rec: 03/02/18 04:15 ZDE7183 ICU-C16) Document 03/02/18 04:00 IDD9397 (Rec: 03/02/18 04:12 QUA9751 ICU-M32) Document 03/02/18 05:00 BWI5780 (Rec: 03/02/18 05:33 MQE8382 ICU-M32) Document 03/02/18 06:00 UJK3527 (Rec: 03/02/18 06:25 LOV9335 ICU-C16) Document 03/02/18 07:27 WCE2801 (Rec: 03/02/18 07:27 VGN9115 ICU-C16) Document 03/02/18 10:10 ZFQ2359 (Rec: 03/02/18 10:10 LZR5226 ICU-C16) Document 03/02/18 14:17 PMF6212 (Rec: 03/02/18 14:17 TFP9436 ICU-C16) Document 03/02/18 15:24 JCX8322 (Rec: 03/02/18 15:24 ATY2683 ICU-C16) Document 03/02/18 18:30 NHY0344 (Rec: 03/02/18 19:28 RMT3406 ICU-C16) Document 03/02/18 19:22 CIS5383 (Rec: 03/02/18 19:22 YEQ8876 ICU-M32) Document 03/02/18 21:00 AAZ7903 (Rec: 03/02/18 21:43 WRX8148 ICU-C15) Document 03/02/18 23:24 QMH1883 (Rec: 03/02/18 23:24 IJO6458 ICU-M32) Document 03/03/18 01:44 QYZ9902 (Rec: 03/03/18 01:44 DKR4605 ICU-C15) Document 03/03/18 02:32 YIP0320 (Rec: 03/03/18 02:32 FLG3067 ICU-C15) Document 03/03/18 05:11 JVI2331 (Rec: 03/03/18 05:11 HVN4200 ICU-C15) Document 03/03/18 06:38 RBK5966 (Rec: 03/03/18 06:38 TSR4026 ICU-C15) Intake and Output Start: 03/03/18 08: 01 Freq: DAILY@0600,1400,2200 Status: Complete Protocol: Created 03/03/18 08:01 AMM1461 (Rec: 03/03/18 08:01 QHB5544 ICU-C25) Document 03/03/18 13:43 STD3501 (Rec: 03/03/18 13:43 PVY3544 ICU-C20) Document 03/03/18 20:25 XLB5215 (Rec: 03/03/18 20:25 OFI3047 ICU-L03) Document 03/03/18 23:42 VCI2919 (Rec: 03/03/18 23:42 AYG4054 ICU-L03) Document 03/04/18 03:00 PTJ3790 (Rec: 03/04/18 04:24 YBR5694 ICU-L03) Document 03/04/18 05:02 XPI7214 (Rec: 03/04/18 05:02 SOB7112 ICU-L03) Document 03/04/18 13:23 DKY9678 (Rec: 03/04/18 13:23 JMD6769 ICU-C15) Document 03/04/18 14:00 SXT1046 (Rec: 03/04/18 14:03 EGJ0402 ICU-C15) Document 03/04/18 20:51 KIE3340 (Rec: 03/04/18 20:51 XTN2420 ICU-C15) Document 03/04/18 21:53 EJH4527 (Rec: 03/04/18 21:53 MJR0501 ICU-C15) Document 03/04/18 22:52 ZHY7598 (Rec: 03/04/18 22:52 NOY2748 ICU-C15) Document 03/05/18 01:58 RAE5144 (Rec: 03/05/18 01:58 RYW5246 ICU-C15) Document 03/05/18 04:00 FSZ7093 (Rec: 03/05/18 05:37 HUI9092 ICU-C15) Document 03/05/18 05:55 JXG0155 (Rec: 03/05/18 05:55 BXQ4472 ICU-C15) Document 03/05/18 08:11 WWM2853 (Rec: 03/05/18 08:11 DDI4261 ICU-M29) Document 03/05/18 10:04 ADP3569 (Rec: 03/05/18 10:04 KHK3139 ICU-M29) Document 03/05/18 14:13 OJQ8614 (Rec: 03/05/18 14:13 OFX7517 ICU-C12) Document 03/05/18 16:15 CND7471 (Rec: 03/05/18 16:15 UII8393 ICU-C12) Document 03/05/18 22:00 IPJ3114 (Rec: 03/06/18 01:57 FPI0159 ICU-C25) Document 03/06/18 06:00 UTH6309 (Rec: 03/06/18 06:21 TXD1404 ICU-C07) Document 03/06/18 08:51 CIS6296 (Rec: 03/06/18 08:51 HPD0037 ICU-C07) Document 03/06/18 14:00 HUT3437 (Rec: 03/06/18 14:02 LJV7845 ICU-C07) Document 03/06/18 22:00 HXN2144 (Rec: 03/07/18 00:15 DKD5441 ICU-C25) Document 03/07/18 06:00 YYD2772 (Rec: 03/07/18 06:53 PQU6632 ICU-C25) Document 03/07/18 08:46 XBL7176 (Rec: 03/07/18 08:47 HYK1272 ICU-L03) Document 03/07/18 17:02 NBG6606 (Rec: 03/07/18 17:02 EXT6671 ICU-L03) Document 03/07/18 17:15 PIL1054 (Rec: 03/07/18 17:16 JAV9893 ICU-L03) Document 03/07/18 22:00 TLF4711 (Rec: 03/08/18 01:41 IIC3747 ICU-C15) Document 03/08/18 06:00 NYV2759 (Rec: 03/08/18 07:05 LZA0576 ICU-C15) Document 03/08/18 08:16 ITX3114 (Rec: 03/08/18 08:16 IGP2363 ICU-C15) Document 03/08/18 09:00 YNH1987 (Rec: 03/08/18 10:00 QEX9867 ICU-C15) Document 03/08/18 12:24 CHM9480 (Rec: 03/08/18 12:24 PIL1127 ICU-C15) Document 03/08/18 14:00 YRN3722 (Rec: 03/08/18 14:35 SCY4171 ICU-C15) Document 03/08/18 14:00 DZT9850 (Rec: 03/08/18 18:13 XOR1242 ICU-C15) Document 03/08/18 18:00 VFJ8441 (Rec: 03/08/18 18:14 LVY4371 ICU-C15) Document 03/08/18 22:00 VZO9605 (Rec: 03/09/18 00:45 PEW9810 ICU-C15) Document 03/09/18 04:34 LXN2810 (Rec: 03/09/18 04:36 AXQ1738 ICU-M29) Document 03/09/18 06:00 NEL3895 (Rec: 03/09/18 06:02 HOA0480 ICU-C15) Document 03/09/18 14:20 WXZ2244 (Rec: 03/09/18 14:23 THR5873 ICU-L03) Document 03/09/18 22:00 WKJ9522 (Rec: 03/09/18 22:22 FGM9822 ICU-C15) Document 03/10/18 04:43 ZVW4019 (Rec: 03/10/18 04:43 TBT4728 ICU-C15) Document 03/10/18 06:04 DBQ0701 (Rec: 03/10/18 06:04 UKG5443 ICU-C14) Document 03/10/18 14:10 MKJ9888 (Rec: 03/10/18 14:13 HXB4240 ICU-C15) Document 03/10/18 17:25 BMK7331 (Rec: 03/10/18 17:25 VJL0195 SSU-M18) Document 03/10/18 18:58 KBB2525 (Rec: 03/10/18 18:59 YOG6360 SSU-C11) Document 03/10/18 22:24 RQU4087 (Rec: 03/10/18 22:24 EBV1679 SSU-M17) Document 03/10/18 22:34 DOV4484 (Rec: 03/10/18 22:35 FFO6192 SSU-M07) Document 03/11/18 00:05 HUL4842 (Rec: 03/11/18 03:20 CEE3107 SSU-C12) Document 03/11/18 02:49 MIR5794 (Rec: 03/11/18 02:50 NDT1691 SSU-M17) Document 03/11/18 06:45 AIJ8722 (Rec: 03/11/18 06:45 PUK5484 SSU-M17) Document 03/11/18 14:50 BMY6258 (Rec: 03/11/18 14:51 YTK5504 SSU-C06) Document 03/11/18 16:26 MPL2670 (Rec: 03/11/18 16:27 RSK8287 SSU-M17) Document 03/11/18 22:27 UMZ2693 (Rec: 03/11/18 22:28 ZCY5570 SSU-M17) Document 03/11/18 23:40 RSF5401 (Rec: 03/11/18 23:40 VGL7073 SSU-M17) Document 03/12/18 03:36 KWR1588 (Rec: 03/12/18 03:36 AZA1156 SSU-M17) Document 03/12/18 05:00 GXD2965 (Rec: 03/12/18 08:34 AYJ2883 SSU-M07) Document 03/12/18 06:06 NHE1660 (Rec: 03/12/18 06:06 DBL3184 SSU-M17) Document 03/12/18 14:21 THS4316 (Rec: 03/12/18 14:22 MZL9132 SSU-C06) Document 03/12/18 21:50 LXS4463 (Rec: 03/12/18 21:51 YJA3952 SSU-L03) Document 03/13/18 00:04 ABE5913 (Rec: 03/13/18 00:04 JEU0096 SSU-M07) Document 03/13/18 03:43 UUM3676 (Rec: 03/13/18 03:43 BCE1737 SSU-M18) Document 03/13/18 04:53 BPF1070 (Rec: 03/13/18 04:53 RTK1518 SSU-M07) Document 03/13/18 14:00 TJD4064 (Rec: 03/13/18 14:42 TGL6727 SSU-C01) Document 03/13/18 22:27 LBJ8753 (Rec: 03/13/18 22:27 PEK2264 SSU-C19) Document 03/14/18 05:07 ABX5549 (Rec: 03/14/18 05:07 QZS8143 SSU-M06) Document 03/14/18 11:00 RFJ4319 (Rec: 03/14/18 12:21 IBF8949 SSU-C19) Document 03/14/18 14:00 OPQ2419 (Rec: 03/14/18 14:16 XFM7295 SSU-C03) Document 03/14/18 19:45 TIT1278 (Rec: 03/15/18 05:45 HVA7736 SSU-C09) Document 03/14/18 22:09 NJS8278 (Rec: 03/14/18 22:11 FRV0061 SSU-M17) Document 03/14/18 22:45 RMT4434 (Rec: 03/15/18 05:45 NTP7154 SSU-C09) Document 03/14/18 23:45 IDP3132 (Rec: 03/15/18 05:44 AMD2233 SSU-C09) Document 03/15/18 00:30 HBE7276 (Rec: 03/15/18 05:44 PHA0784 SSU-C09) Document 03/15/18 01:30 NBI9344 (Rec: 03/15/18 05:44 GNZ2692 SSU-C09) Document 03/15/18 02:45 ITP5307 (Rec: 03/15/18 05:43 ZNG9428 SSU-C09) Document 03/15/18 05:54 SSV9769 (Rec: 03/15/18 05:54 OML9163 SSU-L02) Document 03/15/18 13:33 WOW5194 (Rec: 03/15/18 13:33 MYQ5288 SSU-C03) Intake and Output Start: 03/10/18 18: 58 Freq: Status: Complete Protocol: Created 03/10/18 18:58 UOJ9961 (Rec: 03/10/18 18:58 NNJ3649 SSU-C11) Document 03/11/18 08:42 ORL0412 (Rec: 03/11/18 08:42 GRN9964 SSU-C05) Document 03/12/18 03:36 IXW6140 (Rec: 03/12/18 03:36 DHW2563 SSU-M17) Document 03/12/18 06:12 WYJ5008 (Rec: 03/12/18 06:12 HRA9882 SSU-M17) Document 03/14/18 05:45 NEV5775 (Rec: 03/14/18 05:45 EFS8842 SSU-M17) Document 03/16/18 15:31 UNM1839 (Rec: 03/16/18 15:31 FHX0169 ICU-M25) Document 03/19/18 05:09 ZEX5422 (Rec: 03/19/18 05:10 OBT2804 TELE-M01) Document 03/20/18 07:30 HBV2194 (Rec: 03/20/18 09:53 NVN4932 TELE-C01) Document 03/20/18 09:00 TDB5009 (Rec: 03/20/18 09:53 IOE0136 TELE-C01) Intake and Output Start: 03/15/18 16: 35 Freq: 06,14,2200 Status: Inactive Protocol: Created 03/15/18 16:35 HWL1458 (Rec: 03/15/18 16:35 IHB6182 ICU-M25) Document 03/15/18 22:00 KCY9153 (Rec: 03/15/18 22:57 AYB0963 ICU-C06) Document 03/15/18 23:30 IVN3317 (Rec: 03/16/18 00:40 TXY9823 ICU-C06) Document 03/16/18 06:39 KTI1761 (Rec: 03/16/18 06:40 FAR4175 ICU-M25) Document 03/16/18 13:00 LNV3871 (Rec: 03/16/18 14:50 SLD2249 ICU-C06) Document 03/16/18 14:00 LTU8233 (Rec: 03/16/18 14:50 JOV8461 ICU-C06) Document 03/16/18 14:50 DWJ4779 (Rec: 03/16/18 14:50 YEQ7949 ICU-C06) Document 03/16/18 18:46 EXB1633 (Rec: 03/16/18 18:46 CMD0544 ICU-M25) Document 03/16/18 23:58 YRP4082 (Rec: 03/16/18 23:58 LNR5842 ICU-M25) Document 03/17/18 06:00 JTC6657 (Rec: 03/17/18 06:51 XNL4835 ICU-C07) Document 03/17/18 14:00 LUU3260 (Rec: 03/17/18 15:34 QNX5414 ICU-C18) Intake and Output Start: 03/17/18 15: 42 Freq: DAILY@0600,1400,2200 Status: Active Protocol: Created 03/17/18 15:42 OON7831 (Rec: 03/17/18 15:42 KRV3974 ICU-C08) Document 03/17/18 22:00 HHX6644 (Rec: 03/17/18 22:08 ZND4132 TELE-C35) Document 03/18/18 06:00 GAI8418 (Rec: 03/18/18 06:34 JXH8069 TELE-C34) Document 03/18/18 14:00 RLJ8118 (Rec: 03/18/18 14:43 XOJ5680 TELE-C09) Document 03/18/18 21:40 EZN6952 (Rec: 03/18/18 21:40 TOY5023 TELE-C07) Document 03/19/18 01:30 CFG4032 (Rec: 03/19/18 01:30 IIP0621 TELE-M01) Document 03/19/18 03:50 [id number] (Rec: 03/19/18 04:08 [id number] TELE-M01) Document 03/19/18 04:12 DKP9653 (Rec: 03/19/18 04:12 EIK1497 TELE-M01) Document 03/19/18 06:18 QNJ1591 (Rec: 03/19/18 06:18 FEC1111 TELE-M01) Document 03/19/18 12:00 RZM3503 (Rec: 03/19/18 14:00 WJU0666 TELE-C10) Document 03/19/18 14:00 HQU9119 (Rec: 03/19/18 14:50 IHV2801 TELE-C09) Document 03/19/18 21:29 QQD1670 (Rec: 03/19/18 21:30 EUZ5769 TELE-C07) Document 03/20/18 04:48 KDN1762 (Rec: 03/20/18 04:48 TRP2095 HOSP-C11) Document 03/20/18 05:09 VDC6424 (Rec: 03/20/18 05:09 WOO9566 HOSP-C11) Document 03/20/18 14:00 JIG7565 (Rec: 03/20/18 14:31 LMR6852 TELE-C09) Document 03/20/18 21:30 XHU8068 (Rec: 03/20/18 21:31 FOV2717 TELE-C07) Document 03/21/18 05:33 TNE1413 (Rec: 03/21/18 05:34 BCA7659 TELE-C09) Document 03/21/18 14:00 VZB9090 (Rec: 03/21/18 15:15 MIB6335 TELE-C13) Document 03/21/18 18:49 KXL0068 (Rec: 03/21/18 18:50 AWA4312 TELE-C01) Document 03/21/18 22:00 FPT3223 (Rec: 03/21/18 23:14 BXI0909 TELE-M12) Document 03/22/18 06:00 YUG6495 (Rec: 03/22/18 07:32 IJD9849 TELE-C01) Document 03/22/18 14:00 DCV1479 (Rec: 03/22/18 15:07 QTZ9503 TELE-C08) Document 03/22/18 22:00 NEK2182 (Rec: 03/22/18 22:32 MRC9325 TELE-C13) Document 03/23/18 06:00 HOZ8891 (Rec: 03/23/18 06:42 JHC6813 TELE-C34) Document 03/23/18 14:00 PHZ7084 (Rec: 03/23/18 14:41 MAG8043 TELE-C10) Document 03/23/18 22:00 YZO1901 (Rec: 03/23/18 22:33 VDL8276 TELE-C01) Document 03/24/18 06:00 CCG6275 (Rec: 03/24/18 06:47 TMZ5733 TELE-C34) Document 03/24/18 14:00 VNO9488 (Rec: 03/24/18 15:27 ENU4271 TELE-C05) Document 03/24/18 22:00 VLS0621 (Rec: 03/24/18 22:28 IMH3699 TELE-C01) Document 03/25/18 06:00 LYE3280 (Rec: 03/25/18 06:27 KRP8377 TELE-C34) Document 03/25/18 14:00 KYE4310 (Rec: 03/25/18 15:11 DXO2364 TELE-C09) Document 03/25/18 22:00 VRA1644 (Rec: 03/25/18 22:24 FTU7320 TELE-C07) Document 03/26/18 06:00 LMI9992 (Rec: 03/26/18 06:49 SJZ6492 TELE-C32) Document 03/26/18 14:00 WNR1614 (Rec: 03/26/18 14:04 RSN0472 TELE-C09) Document 03/26/18 21:41 VIX9511 (Rec: 03/26/18 21:41 XYW7689 TELE-C09) Document 03/27/18 06:00 QZO4372 (Rec: 03/27/18 06:23 GBX1036 TELE-C32) Document 03/27/18 14:00 EVC7591 (Rec: 03/27/18 14:36 UBP4564 TELE-C13) Document 03/27/18 21:55 YQS9959 (Rec: 03/27/18 21:57 LDW5719 TELE-C10) Document 03/28/18 06:00 WCO1945 (Rec: 03/28/18 06:28 DPN3155 TELE-C34) Document 03/28/18 14:00 BNH0873 (Rec: 03/28/18 14:05 DOL1666 TELE-C13) Document 03/28/18 21:47 NDR0825 (Rec: 03/28/18 21:50 NMU7447 TELE-C05) Document 03/29/18 06:00 FIQ5029 (Rec: 03/29/18 06:51 SNN5812 TELE-C32) Document 03/29/18 14:00 MMH3335 (Rec: 03/29/18 14:58 FOV1444 TELE-C13) Document 03/29/18 21:26 TGU0502 (Rec: 03/29/18 21:27 QQZ2763 TELE-C03) Document 03/30/18 06:00 UQK8288 (Rec: 03/30/18 06:32 TYZ4014 TELE-C34) Document 03/30/18 14:00 UUJ3961 (Rec: 03/30/18 14:51 KGQ9195 TELE-C13) Document 03/30/18 21:47 GPU8140 (Rec: 03/30/18 21:48 UAV7455 TELE-C13) Document 03/31/18 06:00 PDS2827 (Rec: 03/31/18 06:50 KQW9882 TELE-C34) Document 03/31/18 14:00 WPC3730 (Rec: 03/31/18 14:42 PHM9551 TELE-C05) Document 03/31/18 22:00 FSX4135 (Rec: 03/31/18 22:14 KXD7994 TELE-C07) Document 04/01/18 06:00 MRH4833 (Rec: 04/01/18 06:52 YAV9295 TELE-C34) Document 04/01/18 13:28 WKW8306 (Rec: 04/01/18 13:28 XML5628 TELE-C05) Document 04/01/18 19:47 ABP9877 (Rec: 04/01/18 19:47 VFT5189 TELE-C01) Document 04/01/18 22:00 YEV5004 (Rec: 04/01/18 22:58 LNH2589 TELE-C05) Document 04/02/18 06:00 QTZ7966 (Rec: 04/02/18 06:31 PLA8188 TELE-C34) Document 04/02/18 12:36 KNB8374 (Rec: 04/02/18 12:36 UDU7041 TELE-C05) Document 04/02/18 22:24 PYT0854 (Rec: 04/02/18 22:25 OTI5402 TELE-C09) Document 04/03/18 06:00 EIS7113 (Rec: 04/03/18 06:15 ILS1195 TELE-C34) Document 04/03/18 12:22 DXY0099 (Rec: 04/03/18 12:22 BRA8015 TELE-C05) Document 04/03/18 21:55 CXR1641 (Rec: 04/03/18 21:55 PQL7393 TELE-C01) Document 04/04/18 06:00 JOL7756 (Rec: 04/04/18 07:43 HZJ6971 TELE-C01) Document 04/04/18 14:00 WHI5693 (Rec: 04/04/18 14:17 ZLT0937 TELE-C10) Document 04/04/18 22:03 DFH7726 (Rec: 04/04/18 22:05 UQX3771 TELE-C08) Document 04/05/18 05:14 JMH1633 (Rec: 04/05/18 05:15 BMA9016 TELE-C10) Document 04/05/18 14:00 RQG2200 (Rec: 04/05/18 14:45 YCO3077 TELE-C05) Document 04/05/18 21:48 VAD4487 (Rec: 04/05/18 21:49 JGM9119 MED-C02) Document 04/06/18 06:00 NPI1353 (Rec: 04/06/18 07:12 HXR2826 MED-C11) Document 04/06/18 14:00 NPZ7859 (Rec: 04/06/18 18:25 IZP5178 MED-C09) Document 04/06/18 20:44 XND2811 (Rec: 04/07/18 20:44 YSE6335 MED-M04) Document 04/06/18 21:12 MFT0291 (Rec: 04/06/18 21:12 HID6000 MED-C15) Document 04/07/18 05:18 CYY8264 (Rec: 04/07/18 05:19 XJN4791 MED-C15) Document 04/07/18 14:00 WAI7927 (Rec: 04/07/18 16:07 WRD1170 MED-C13) Document 04/07/18 20:45 NLH7490 (Rec: 04/07/18 20:45 KQP3151 MED-M04) Document 04/07/18 22:00 ONU5430 (Rec: 04/07/18 22:46 ZAE6269 MED-C15) Document 04/08/18 05:30 UGE6241 (Rec: 04/08/18 05:30 HNM6439 MED-M04) Document 04/08/18 05:46 CUU3955 (Rec: 04/08/18 05:47 BPS5176 MED-C15) Document 04/08/18 08:27 JDB8630 (Rec: 04/08/18 08:28 HYN6672 MED-C09) Document 04/08/18 14:00 AZZ7162 (Rec: 04/08/18 18:54 GDT0153 MED-C11) Document 04/08/18 22:00 GPE8876 (Rec: 04/08/18 22:29 WXM9480 MED-C02) Document 04/09/18 05:59 WRD9781 (Rec: 04/09/18 06:01 OHE5564 MED-M11) Document 04/09/18 12:38 AYH3844 (Rec: 04/09/18 12:38 OOO4046 MED-C11) Document 04/09/18 14:00 RQH8854 (Rec: 04/09/18 14:12 SLI4218 MED-C11) Document 04/09/18 21:23 BAD7318 (Rec: 04/09/18 21:24 XZW6032 MED-C09) Document 04/10/18 04:56 WPP4410 (Rec: 04/10/18 04:57 RFF2565 MED-C09) Document 04/10/18 14:00 RNF2536 (Rec: 04/10/18 15:26 UXK3644 MED-C09) Document 04/10/18 22:00 PPJ7271 (Rec: 04/10/18 22:48 JAN9356 MED-C13) Document 04/11/18 05:07 KJP6650 (Rec: 04/11/18 05:07 PNZ1922 MED-C09) Document 04/11/18 06:06 TBC4741 (Rec: 04/11/18 06:06 CFQ0098 [facility]-M18) Eyes: No Scleral Icterus Ears/Nose/Mouth/Throat: Clear Oropharnyx, Mucous Membranes Moist Neck: NL Appearance and Movements; NL JVP, - - Bloody sputum from trach site Cardiovascular: NL Sounds; No Murmurs; No JVD, RRR, - - Bilateral pedal to ankle edema with right worse than left Respiratory: Clear to Auscultation Abdominal: NL Sounds; No Tenderness; No Distention Extremities: No Clubbing, Cyanosis - 2-3+ pitting edema bilaterally in legs Neurological: Alert and Oriented x 3, NL Muscle Strength and Tone - Assessment Assessment: 87yo male 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 Also spoke about hospice. Family is familiar with hospice, an aunt had at home with hospice and it was a positive experience. Pt is not interested in hospice as of now. He wants to go home they do have family support who will be checking in with them. I also recommended [facility] to add another layer of support with 24hr nurse coverage. Also if pt's health declines they will be able to facilitate transition to hospice care. Also strongly encouraged a home health aide to help with bathing and house work. They have a neighbor they are going to approach. Gave them info about [facility] and my card if they have more questions. Also explained [facility] will assess the home and see if any assisted devices are needed and can help them obtain them. He is looking forward to going home and is worried about his . Family is working on plans if something happens to him about care for his . KPS 50% PPS 50%.
--- NOTE | 2018-04-11 20:27 | PN ---
Subjective Date of Service: 04/11/18 Interval History: Received call from nurse that patient was coughing up blood again via trach site. Safety Supervisor to bedside and chris bright red blood noted on tissues and surrounding trach site. This is a change from previous as patient was previously coughing up dark blood tinged sputum. Patient reports mild increase in shortness of breath occasionally as bloody mucous will "clog up tube" referring to trach. RT to bedside. Denies cp, palpitations, nausea, vomiting, diarrhea. Family History: Unchanged from Admission Social History: Unchanged from Admission Past Medical History: Unchanged from Admission Objective Active Medications: Acetaminophen (Tylenol Adult Liq*) 650 mg PEG TUBE Q4H PRN PRN Reason: PAIN Last Admin: 03/14/18 08:00 Dose: 650 mg Al Hydrox/Mg Hydrox/Simethicone (Maalox Plus*) 30 ml NG TUBE Q6H PRN PRN Reason: DYSPEPSIA Last Admin: 03/15/18 10:16 Dose: 30 ml Amiodarone HCl (Cordarone Tab*) 200 mg PO 0900 [facility] Last Admin: 04/11/18 08:39 Dose: 200 mg Aspirin (Aspirin 81 Mg Chew Tab*) 81 mg PO DAILY [facility] Last Admin: 04/11/18 08:39 Dose: 81 mg Atorvastatin Calcium (Lipitor*) 40 mg NG TUBE BEDTIME [facility] Last Admin: 04/10/18 20:49 Dose: 40 mg Bacitracin (Bacitracin Ointment*) 1 applic TOPICAL TID PRN PRN Reason: WOUND CARE Last Admin: 04/08/18 15:00 Dose: 1 applic Clopidogrel Bisulfate (Plavix Tab*) 75 mg PO DAILY [facility] Last Admin: 04/11/18 08:39 Dose: 75 mg Docusate Sodium (Colace Cap*) 100 mg PO BID PRN PRN Reason: CONSTIPATION Furosemide (Lasix Tab*) 20 mg PO DAILY [facility] Last Admin: 04/11/18 08:39 Dose: 20 mg Heparin Sodium (Porcine) (Heparin Flush Picc/Ml/Cvc(*)) 1 - 3 ml FLUSH 0600, 1800 [facility]; Protocol Last Admin: 04/11/18 17:58 Dose: 3 ml Insulin Glargine (Lantus(*)) 8 units SUBCUT Q24H [facility] Last Admin: 04/11/18 13:37 Dose: 8 units Insulin Human Lispro (Humalog*) 0 units SUBCUT ACHS [facility]; Protocol Last Admin: 04/11/18 17:54 Dose: Not Given Isosorbide Mononitrate (Imdur Er Tab*) 30 mg PO DAILY [facility] Last Admin: 04/11/18 08:39 Dose: 30 mg Lactobacillus Rhamnosus (Lactobacillus Acidophilus*) 1 tab PO BID [facility] Last Admin: 04/11/18 08:39 Dose: 1 tab Metformin HCl (Glucophage*) 500 mg PO 0800,1700 [facility] Last Admin: 04/11/18 17:57 Dose: 500 mg Metoprolol Tartrate (Lopressor Tab*) 12.5 mg PO Q12HR [facility] Last Admin: 04/11/18 08:39 Dose: 12.5 mg Ondansetron HCl (Zofran Inj*) 4 mg IV Q6H PRN PRN Reason: NAUSEA/VOMITING Last Admin: 04/01/18 20:36 Dose: 4 mg Senna (Senokot Tab*) 1 tab PO DAILY PRN PRN Reason: CONSTIPATION Terazosin HCl (Hytrin Cap*) 4 mg PO BEDTIME [facility] Last Admin: 04/10/18 20:49 Dose: 4 mg Vital Signs - 8 hr 04/11/18 15:11 Temperature 97.8 F Pulse Rate 50 Respiratory 18 Rate Blood Pressure 134/37 (mmHg) O2 Sat by Pulse 100 Oximetry Oxygen Devices in Use Now: Tracheostomy Collar Appearance: NAD Eyes: No Scleral Icterus Ears/Nose/Mouth/Throat: Clear Oropharnyx, Mucous Membranes Moist Neck: - - Trach site with bright red bloody drainage Respiratory: Symmetrical Chest Expansion and Respiratory Effort, - - Sporadic chronic Abdominal: NL Sounds; No Tenderness; No Distention Lymphatic: No Cervical Adenopathy Extremities: - - Bilateral ankle and pedal edame +1 pitting Neurological: Alert and Oriented x 3, NL Muscle Strength and Tone Nutrition: Taking PO's - Nutrition: Malnutrition Diagnosis/Plan Malnutrition Assessment by Registered Dietitian: Malnutrition Assessment Clinical Characteristics Acute,Moderate Malnutrition Assessment: - 6.1% wt loss in past one month Criteria - mild temporal muscle wasting - intake likely <75% EEE x 7 days Malnutrition Assessment: 1. follow DEPUTY PROBATION OFFICER re-evaluation of swallowing Interventions function; NPO at this time 2. follow for potential need for PEG placement 3. offer and begin po supplements when pt ready for some level of po intake Malnutrition Assessment: Goals 1. when safe for po intake, pt will tolerate least-restrictive diet texture without evidence of swallowing difficulty or aspiration 2. adequate po intake to maintain present wt and hydration status 3. achieve and maintain serum electrolytes within normal ranges 4. achieve and maintain regulation of bowel pattern; no constipation (or diarrhea) Result Diagrams: 04/10/18 08:15 04/10/18 08:15 Additional Lab and Data: Laboratory Results - last 24 hr 04/10/18 04/11/18 04/11/18 20:49 07:53 12:40 POC Glucose (mg/dL) 112 H 81 98 04/11/18 17:15 POC Glucose (mg/dL) 161 H Microbiology and Other Data: Microbiology 03/25/18 11:41 Blood Venous Aerobic Blood Culture - Final No Growth Day 5 03/25/18 11:41 Blood Venous Anaerobic Blood Culture - Final No Growth Day 5 03/25/18 11:40 Blood Venous Aerobic Blood Culture - Final No Growth Day 5 03/25/18 11:40 Blood Venous Anaerobic Blood Culture - Final No Growth Day 5 03/01/18 14:50 Nasal Nasal Screen MRSA (PCR) - Final Mrsa Not Detected Assess/Plan/Problems-Billing Mr. 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 - Patient Problems (1) Bleeding Comment: - Patient continues to have recurrent episodes of bloody sputum from trach site. - Called placed to Dr Clark who will see patient tomorrow (04/12). Dr Clark instructed to stop suctioning patient as he should no longer need it. RT reports this cannot be discontinued as bloody sputum continues to clog trach and cause symptoms and patient agrees. - Bleeding suspected secondary to dual plt therapy which patient needs to remain on for 6 months given NSTEMI - Cardiology will be consulted tomorrow to discuss treatment plans (2) Anemia Comment: - H&H stable - Slight lower than baseline, but could be secondary to lengthy hospital stay and repeat lab draws - Will recheck tomorrow given repeat bloody sputum from trach (3) Laryngeal cancer Comment: - S/P tracheostomy and laryngectomy. - Availability of supplies and insurance coverage has been holding up discharge. (4) Ventricular tachycardia Comment: - Pt with likely NSTEMI post op as evidenced by EKG changes and reduced EF on echo. Continue ASA, plavix (standard 6 month treatment) - LifeVest is in place. - Initially after NSTEMI instructions were given to have patient follow up Dr. Chaudhari within 7 days after discharge, but since patient has been here for over a month since that time we will be requesting a cardiology consult tomorrow to discuss treatment plan (5) Atrial fibrillation Comment: -Chronic afib with HR controlled -Pt continues to refuse anticoagulation (6) Malnutrition Comment: -Pt is eating ok on soft diet (7) Tracheostomy in place Comment: -Continue tracheostomy education (8) CAD (coronary artery disease) Comment: -It is thought the patient had a UT post op -Continue ASA, plavix, metoprolol, Imdur and lipitor (9) Diabetes mellitus Comment: - Improved control - Continue to monitor FS as ordered - Continue Lantus at 8 units (10) HTN (hypertension) Comment: -BP WNL -Continue metoprolol and Lasix PO (11) DVT prophylaxis Comment: -SCD ordered (12) Full code status Comment: - Discussed code status with patient today and we would like to continue to be a Full Code Status and Disposition: - Inpatient as patient is not medically stable for swing. Palliative care consulting. Attending: Meek Hawthorne
[2018-04-11] MEDS: Atorvastatin* 40 MG TAB NG TUBE SCH (21:01)
[2018-04-11] MEDS: Terazosin CAP* 1 MG PO SCH (21:01)
[2018-04-12 07:03] LABS: Hematocrit 24 % (42-52); Hemoglobin 7.8 g/dl (14.0-18.0); Mean Corpuscular HGB Conc 33 g/dl (31-36); Mean Corpuscular Hemoglobin 30 pg (27-31); Mean Corpuscular Volume 90 fL (80-94); Platelet Count 119 10^3/ul (150-450); Red Blood Count 2.64 10^6/ul (4.00-5.40); Red Cell Distribution Width 19 % (10.5-15); White Blood Count 8.1 10^3/ul (3.5-10.8)
[2018-04-12 07:08] LABS: ABS Basophils 0 10^3/ul (0-0.2); ABS Eosinophils 0.1 10^3/ul (0-0.6); ABS Lymphocytes 0.4 10^3/ul (1.0-4.8); ABS Monocytes 0.5 10^3/ul (0-0.8); ABS Nucleated RBC 0 10^3/ul; Eosinophil % 1.3 %; Lymphocyte % 4.4 %; Nucleated Red Blood Cells % 0
[2018-04-12 07:19] LABS: BUN/Creatinine Ratio 24.8 (8-20); Calcium 8.2 mg/dL (8.6-10.3); EGFR African American 49.1 (>60); EGFR Non-African American 40.6 (>60); Magnesium 1.7 mg/dL (1.9-2.7); Potassium 4.2 mmol/L (3.5-5.0)
[2018-04-12] MEDS: Insulin LISPRO* 1 UNITS UNIT SUBCUT SCH ×4 (09:44→20:40)
[2018-04-12] MEDS: Metoprolol Tartrate TAB* 25 MG PO SCH ×2 (10:01→20:38)
[2018-04-12] MEDS: Furosemide TAB* 20 MG PO SCH (10:02)
[2018-04-12] MEDS: Clopidogrel TAB* 75 MG PO SCH (10:02)
[2018-04-12] MEDS: Amiodarone TAB* 200 MG PO SCH (10:02)
[2018-04-12] MEDS: Isosorbide Mononitrate ER TAB* 30 MG PO SCH (10:02)
[2018-04-12] MEDS: metFORMIN* 500 MG TAB PO SCH ×2 (10:02→15:32)
[2018-04-12] MEDS: Lactobacillus Acidophilus* 1 TAB PO SCH ×2 (10:03→20:38)
[2018-04-12] MEDS: Aspirin 81 mg CHEW TAB* 81 MG TAB.CHEW PO SCH (10:03)
[2018-04-12] MEDS: Insulin GLARGINE(*) 1 UNITS UNIT SUBCUT SCH (12:58)
[2018-04-12] MEDS ORDERED: Magnesium Sulfate 2 GM IV* 2 GM/50 ML BAG IVPB ONE (14:44)
--- NOTE | 2018-04-12 14:50 | PN ---
Subjective Date of Service: 04/12/18 Interval History: Patient seen and examined. Still having copious bloody secretions and clots from trach stoma. Patient denies chest pain no acute SOB, denies fevers or chills. Family History: Unchanged from Admission Social History: Unchanged from Admission Past Medical History: Unchanged from Admission Objective Active Medications: Acetaminophen (Tylenol Adult Liq*) 650 mg PEG TUBE Q4H PRN PRN Reason: PAIN Last Admin: 03/14/18 08:00 Dose: 650 mg Al Hydrox/Mg Hydrox/Simethicone (Maalox Plus*) 30 ml NG TUBE Q6H PRN PRN Reason: DYSPEPSIA Last Admin: 03/15/18 10:16 Dose: 30 ml Amiodarone HCl (Cordarone Tab*) 200 mg PO 0900 [facility] Last Admin: 04/12/18 10:02 Dose: 200 mg Aspirin (Aspirin 81 Mg Chew Tab*) 81 mg PO DAILY [facility] Last Admin: 04/12/18 10:03 Dose: 81 mg Atorvastatin Calcium (Lipitor*) 40 mg NG TUBE BEDTIME [facility] Last Admin: 04/11/18 21:01 Dose: 40 mg Bacitracin (Bacitracin Ointment*) 1 applic TOPICAL TID PRN PRN Reason: WOUND CARE Last Admin: 04/08/18 15:00 Dose: 1 applic Clopidogrel Bisulfate (Plavix Tab*) 75 mg PO DAILY [facility] Last Admin: 04/12/18 10:02 Dose: 75 mg Docusate Sodium (Colace Cap*) 100 mg PO BID PRN PRN Reason: CONSTIPATION Furosemide (Lasix Tab*) 20 mg PO DAILY [facility] Last Admin: 04/12/18 10:02 Dose: 20 mg Heparin Sodium (Porcine) (Heparin Flush Picc/Ml/Cvc(*)) 1 - 3 ml FLUSH 0600, 1800 [facility]; Protocol Last Admin: 04/12/18 06:50 Dose: 1 ml Magnesium Sulfate (Magnesium Sulfate 2 Gm Iv*) 2 gm in 50 mls @ 50 mls/hr IVPB ONCE ONE Stop: 04/12/18 15:43 Insulin Glargine (Lantus(*)) 8 units SUBCUT Q24H [facility] Last Admin: 04/12/18 12:58 Dose: 8 units Insulin Human Lispro (Humalog*) 0 units SUBCUT ACHS [facility]; Protocol Last Admin: 04/12/18 12:24 Dose: Not Given Isosorbide Mononitrate (Imdur Er Tab*) 30 mg PO DAILY [facility] Last Admin: 04/12/18 10:02 Dose: 30 mg Lactobacillus Rhamnosus (Lactobacillus Acidophilus*) 1 tab PO BID [facility] Last Admin: 04/12/18 10:03 Dose: 1 tab Metformin HCl (Glucophage*) 500 mg PO 0800,1700 [facility] Last Admin: 04/12/18 10:02 Dose: 500 mg Metoprolol Tartrate (Lopressor Tab*) 12.5 mg PO Q12HR [facility] Last Admin: 04/12/18 10:01 Dose: 12.5 mg Ondansetron HCl (Zofran Inj*) 4 mg IV Q6H PRN PRN Reason: NAUSEA/VOMITING Last Admin: 04/01/18 20:36 Dose: 4 mg Senna (Senokot Tab*) 1 tab PO DAILY PRN PRN Reason: CONSTIPATION Terazosin HCl (Hytrin Cap*) 4 mg PO BEDTIME [facility] Last Admin: 04/11/18 21:01 Dose: 4 mg Vital Signs - 8 hr 04/12/18 04/12/18 04/12/18 06:48 07:40 11:03 Temperature 97.2 F 98.1 F Pulse Rate 70 61 Respiratory 16 20 20 Rate Blood Pressure 147/48 125/33 (mmHg) O2 Sat by Pulse 100 100 Oximetry Oxygen Devices in Use Now: Tracheostomy Collar Appearance: alert, NAD Eyes: No Scleral Icterus, PERRLA Ears/Nose/Mouth/Throat: - - trach stoma site with bloody drainage Neck: NL Appearance and Movements; NL JVP Respiratory: - - diminished with scattered rhonchi Cardiovascular: NL Sounds; No Murmurs; No JVD, - - life vest in place, irregular Abdominal: NL Sounds; No Tenderness; No Distention Extremities: No Edema, No Clubbing, Cyanosis Skin: No Nodules or Sclerosis Neurological: Alert and Oriented x 3 Nutrition: Taking PO's - Nutrition: Malnutrition Diagnosis/Plan Malnutrition Assessment by Registered Dietitian: Malnutrition Assessment Clinical Characteristics Acute,Moderate Malnutrition Assessment: - 6.1% wt loss in past one month Criteria - mild temporal muscle wasting - intake likely <75% EEE x 7 days Malnutrition Assessment: 1. follow WHEEL POLISHER re-evaluation of swallowing Interventions function; NPO at this time 2. follow for potential need for PEG placement 3. offer and begin po supplements when pt ready for some level of po intake Malnutrition Assessment: Goals 1. when safe for po intake, pt will tolerate least-restrictive diet texture without evidence of swallowing difficulty or aspiration 2. adequate po intake to maintain present wt and hydration status 3. achieve and maintain serum electrolytes within normal ranges 4. achieve and maintain regulation of bowel pattern; no constipation (or diarrhea) Result Diagrams: 04/12/18 06:45 04/12/18 06:45 Additional Lab and Data: Laboratory Results - last 24 hr 04/10/18 04/11/18 04/11/18 20:49 07:53 12:40 POC Glucose (mg/dL) 112 H 81 98 04/11/18 17:15 POC Glucose (mg/dL) 161 H Microbiology and Other Data: Microbiology 03/25/18 11:41 Blood Venous Aerobic Blood Culture - Final No Growth Day 5 03/25/18 11:41 Blood Venous Anaerobic Blood Culture - Final No Growth Day 5 03/25/18 11:40 Blood Venous Aerobic Blood Culture - Final No Growth Day 5 03/25/18 11:40 Blood Venous Anaerobic Blood Culture - Final No Growth Day 5 03/01/18 14:50 Nasal Nasal Screen MRSA (PCR) - Final Mrsa Not Detected Assess/Plan/Problems-Billing Mr. 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 - Patient Problems (1) Laryngeal cancer Comment: - S/P tracheostomy and laryngectomy - Dr. Stubbs following - Availability of supplies and insurance coverage has been holding up discharge. Please see notes from CM and SW (2) Myocardial infarction in recovery phase Code(s): I21.9 - ACUTE MYOCARDIAL INFARCTION, UNSPECIFIED SNOMED Code(s): 517637358 Comment: - Extensive history of CAD, follows with [facility] as an outpatient - Presumed AMI on 03/14/18 while recovering from surgery with approx 50 beats Vtach - Per cardiology notes, patient elected medical management only given extensive comorbidities and recent surgery - Continue ASA, plavix, metoprolol, Imdur and lipitor and amiodarone (3) Bleeding Comment: - Patient continues to have recurrent episodes of bloody sputum from trach site. - Per records, will be seen by Dr. Stubbs this afternoon. - Dr Clark instructed to stop suctioning patient as he should no longer need it. RT reports this cannot be discontinued as bloody sputum continues to clog trach and cause symptoms and patient agrees. - Bleeding suspected secondary to dual plt therapy which patient needs to remain on for 6 months given NSTEMI - Cardiology will be consulted tomorrow to discuss treatment plans (4) Cardiomyopathy Code(s): I42.9 - CARDIOMYOPATHY, UNSPECIFIED SNOMED Code(s): 08377145 Comment: - With LifeVest - Repeat ECHO today to assess EF, pending re-eval by cardiology today - Continue Imdur amiodarone metoprolol and lasix (5) Anemia Code(s): D64.9 - ANEMIA, UNSPECIFIED SNOMED Code(s): 167474506 Comment: - H&H stable up until yesterday but dropped to 7.8 today - Likely combination of prolonged hospitalization, renal disease and persistent oozing from trach site - Given cardiac disease, persistent bleeding and TX, will transfuse 1 unit PRBCs (6) CKD (chronic kidney disease) stage 3, GFR 30-59 ml/min Code(s): N18.3 - CHRONIC KIDNEY DISEASE, STAGE 3 (MODERATE) SNOMED Code(s): 367832158 Comment: - creatinine up from baseline - May need one dose lasix after transfusion (7) Diabetes mellitus Code(s): E11.9 - TYPE 2 DIABETES MELLITUS WITHOUT COMPLICATIONS SNOMED Code(s) : 17051332 Comment: - BG ACHS, continue lantus 8u and lispro SS (8) HTN (hypertension) Code(s): I10 - ESSENTIAL (PRIMARY) HYPERTENSION SNOMED Code(s): 48438499 Comment: - BP stable on metoprolol and norvasc (9) DVT prophylaxis Code(s): OSW4658 - SNOMED Code(s): 961466609 Comment: - SCDs (10) Full code status Code(s): Z78.9 - OTHER SPECIFIED HEALTH STATUS SNOMED Code(s): 942178176 Comment: - This was discussed by Dr. Gonzalez, patient wishes to remain full code with active care Status and Disposition: - Inpatient. Declines palliative/hospice. Appreciate any further recs from cardio and ENT.
--- NOTE | 2018-04-12 15:10 | ECHO ---
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 Technical Comments: The study quality is good. Completed at 1320. Left Ventricle: The left ventricular chamber size is normal. There is a focal wall motion abnormality present. There is moderately decreased left ventricular systolic function.the base of the septum and posterior wall are relatively hypokinetic. The estimated ejection fraction is 40-45%. Post surgical hypokinesis of the interventricular septum is observed consistent with coronary artery bypass. Abnormal left ventricular diastolic function is observed. The left ventricular diastolic filling pattern is consistent with elevated left ventricular end-diastolic pressure. Left Atrium: The left atrium is mildly dilated. Right Ventricle: The right ventricular cavity size is normal. The right ventricular global systolic function is normal. Right Atrium: The right atrium is mildly dilated. Aortic Valve: The aortic valve is trileaflet. There is no evidence of aortic valve thickening. There is a trace of aortic regurgitation. There is no evidence of aortic stenosis. Mitral Valve: There is mitral annular calcification. The mitral valve leaflets are moderately thickened. There is mild to moderate mitral regurgitation. There is mild mitral stenosis. Tricuspid Valve: The tricuspid valve leaflets are normal. There is mild tricuspid regurgitation. The right ventricular systolic pressure is estimated at 36 mmHg. There is evidence of mild pulmonary hypertension. There is no tricuspid stenosis. Pulmonic Valve: The pulmonic valve appears normal. There is trace to mild pulmonic regurgitation. There is no pulmonic stenosis. Pericardium: The pericardium appears normal. Aorta: There is no dilatation of the ascending aorta. The aortic arch is not well visualized. Secondary to trach tube placement. There is no dilation of the aortic root. Pulmonary Artery: The main pulmonary artery appears normal. Venous: The inferior vena cava appears normal in size. There is a greater than 50% respiratory change in the inferior vena cava dimension. Conclusions The patient was in atrial fibrillation throughout the study. The left ventricular chamber size is normal. The base of the septum and posterior wall are relatively hypokinetic. The estimated ejection fraction is 40-45%. Abnormal left ventricular diastolic function is observed with elevated left ventricular end-diastolic pressure. The right ventricular global systolic function is normal. There is a trace of aortic regurgitation. There is mild to moderate mitral regurgitation, closer to moderate. There is mild tricuspid regurgitation. There is evidence of mild pulmonary hypertension estimated at 36 mmHg. Compared with prior study of 03/15/18, inferior wall motion abnormality newly noted, septal hypokinesis seen in the prior study. MR is stable, TR improved, PA pressure has improved from 52 mmHg. Measurements Name Value Normal Range RVIDd (AP) 2D 3.1 cm (0.9 - 2.6) RVDdMajor (2D) 4 cm (2.2 - 4.4) RAd ISD 4CH 5.3 cm (3.4 - 4.9) RA (A4C)W 4.4 cm (2.9 - 4.6) IVSd (2D) 1 cm (0.6 - 1) LVPWd (2D) 0.9 cm (0.6 - 1) LVIDd (2D) 4.6 cm (3.6 - 5.4) LVIDs (2D) 2.9 cm - LV FS (2D) 38 % (25 - 45) Aortic Annulus 2 cm (1.4 - 2.6) Ao root diameter (2D) 3.2 cm (2.1 - 3.5) Ascending Ao 2.3 cm (2.1 - 3.4) LA dimension (AP) 2D 4.3 cm (2.3 - 3.8) LAd ISD 4CH 6.7 cm (2.9 - 5.3) LA ISD 4CH W 4.7 cm (2.5 - 4.5) Name Value Normal Range LA ESV SP 4CH (A/L) 78 ml - LA ESV SP 2CH (A/L) 79 ml - LA ESV BP (A/L) 83 ml - LA ESV BP (A/L) index 48 ml/m2 - LA ESV SP 4CH (MOD) 75 ml - LA ESV SP 2CH (MOD) 75 ml - Name Value Normal Range MV E-wave Vmax 1.3 m/sec - MV deceleration time 323 msec - LV septal e' Vmax 0.05 m/sec - LV lateral e' Vmax 0.08 m/sec - LV E:e' septal ratio 26 ratio - LV E:e' lateral ratio 16.25 ratio - Name Value Normal Range AV Vmax 1.5 m/sec - AV VTI 32.6 cm - AV peak gradient 9.1 mmHg - AV mean gradient 4 mmHg - LVOT diameter 2 cm - LVOT Vmax 1.1 m/sec - LVOT VTI 23.6 cm - LVOT peak gradient 4.9 mmHg - LVOT mean gradient 2.21 mmHg - Name Value Normal Range MV Vmax 1.1 m/sec - MV VTI 33.7 cm - MV peak gradient 5.84 mmHg - MV mean gradient 1.26 mmHg - MV PHT 90 msec - MR Vmax 2.8 m/sec - MR VTI 92.8 cm - MVA (PHT) 2.5 cm2 - MVA (continuity VTI) 2.1 cm2 - Name Value Normal Range TR Vmax 2.9 m/sec - TR peak gradient 33 mmHg - RAP 3 mmHg - RVSP 36 mmHg - Name Value Normal Range PV Vmax 0.8 m/sec - PV peak gradient 2.78 mmHg -
--- NOTE | 2018-04-12 18:30 | PN ---
Subjective Date of Service: 04/12/18 - CC: NSVT, CM Interval History: The patient was last seen by cardiology 03/17/18. I was asked to see the patient regarding his Zoll external defibrillator. Per patient breathing is up and down. He is not very active. He denies CP, palpitations or dizziness. Medications Active Medications: Acetaminophen (Tylenol Adult Liq*) 650 mg PEG TUBE Q4H PRN PRN Reason: PAIN Last Admin: 03/14/18 08:00 Dose: 650 mg Al Hydrox/Mg Hydrox/Simethicone (Maalox Plus*) 30 ml NG TUBE Q6H PRN PRN Reason: DYSPEPSIA Last Admin: 03/15/18 10:16 Dose: 30 ml Amiodarone HCl (Cordarone Tab*) 200 mg PO 0900 [facility] Last Admin: 04/12/18 10:02 Dose: 200 mg Aspirin (Aspirin 81 Mg Chew Tab*) 81 mg PO DAILY [facility] Last Admin: 04/12/18 10:03 Dose: 81 mg Atorvastatin Calcium (Lipitor*) 40 mg NG TUBE BEDTIME [facility] Last Admin: 04/11/18 21:01 Dose: 40 mg Bacitracin (Bacitracin Ointment*) 1 applic TOPICAL TID PRN PRN Reason: WOUND CARE Last Admin: 04/08/18 15:00 Dose: 1 applic Clopidogrel Bisulfate (Plavix Tab*) 75 mg PO DAILY [facility] Last Admin: 04/12/18 10:02 Dose: 75 mg Docusate Sodium (Colace Cap*) 100 mg PO BID PRN PRN Reason: CONSTIPATION Furosemide (Lasix Tab*) 20 mg PO DAILY [facility] Last Admin: 04/12/18 10:02 Dose: 20 mg Heparin Sodium (Porcine) (Heparin Flush Picc/Ml/Cvc(*)) 1 - 3 ml FLUSH 0600, 1800 [facility]; Protocol Last Admin: 04/12/18 17:40 Dose: Not Given Insulin Glargine (Lantus(*)) 8 units SUBCUT Q24H [facility] Last Admin: 04/12/18 12:58 Dose: 8 units Insulin Human Lispro (Humalog*) 0 units SUBCUT ACHS [facility]; Protocol Last Admin: 04/12/18 17:31 Dose: Not Given Isosorbide Mononitrate (Imdur Er Tab*) 30 mg PO DAILY [facility] Last Admin: 04/12/18 10:02 Dose: 30 mg Lactobacillus Rhamnosus (Lactobacillus Acidophilus*) 1 tab PO BID [facility] Last Admin: 04/12/18 10:03 Dose: 1 tab Metformin HCl (Glucophage*) 500 mg PO 0800,1700 [facility] Last Admin: 04/12/18 15:32 Dose: 500 mg Metoprolol Tartrate (Lopressor Tab*) 12.5 mg PO Q12HR [facility] Last Admin: 04/12/18 10:01 Dose: 12.5 mg Ondansetron HCl (Zofran Inj*) 4 mg IV Q6H PRN PRN Reason: NAUSEA/VOMITING Last Admin: 04/01/18 20:36 Dose: 4 mg Senna (Senokot Tab*) 1 tab PO DAILY PRN PRN Reason: CONSTIPATION Terazosin HCl (Hytrin Cap*) 4 mg PO BEDTIME [facility] Last Admin: 04/11/18 21:01 Dose: 4 mg Objective Vital Signs: Temp Pulse Resp BP Pulse Ox 98.1 F 61 20 125/33 100 04/12/18 11:03 04/12/18 11:03 04/12/18 11:03 04/12/18 11:03 04/12/18 11:03 Oxygen Devices in Use Now: Tracheostomy Collar Appearance: elderly male, lying in bed, TV on, comfortable. Eyes: No Scleral Icterus Ears/Nose/Mouth/Throat: Mucous Membranes Moist, - - trach stoma, not trach tube. Neck: No Thyroid Enlargement, Masses Respiratory: Symmetrical Chest Expansion and Respiratory Effort - rare basilar crackles. Cardiovascular: NL Sounds; No Murmurs; No JVD - irregular. Abdominal: NL Sounds; No Tenderness; No Distention Extremities: No Edema Neurological: Alert and Oriented x 3 Laboratory Results: 04/12/18 06:45 04/12/18 06:45 INR (Anticoag Therapy) 0.96 (0.77-1.02) 03/27/18 06:05 APTT 30.2 seconds (26.0-36.3) 03/27/18 06:05 Total Bilirubin 0.70 mg/dL (0.2-1.0) 03/27/18 06:05 AST 19 U/L (13-39) 03/27/18 06:05 ALT 16 U/L (7-52) 03/27/18 06:05 Alkaline Phosphatase 65 U/L (34-104) 03/27/18 06:05 B-Natriuretic Peptide > 1300 pg/mL (<=100) H 04/03/18 13:30 Total Protein 6.2 g/dL (6.4-8.9) L 03/27/18 06:05 Albumin 2.8 g/dL (3.2-5.2) L 03/27/18 06:05 Globulin 3.4 g/dL (2-4) 03/27/18 06:05 Albumin/Globulin Ratio 0.8 (1-3) L 03/27/18 06:05 TSH 0.17 mcIU/mL (0.34-5.60) L 03/15/18 23:11 03/15/18 03/15/18 06:34 12:09 Troponin I 0.04 H* 0.03 Diagnostic Imaging: Echo 04/12/18: Inferior and septal defect, EF 40-45%, mod MR PA pr 36 mmHg (improved from 56 mmHg last month). Monitor strips through 04/03/18: 53 beats MM VT 03/15/18. Now chronic afib, occasional 2-3 second pauses. Assessment/Plan 87 yo male admitted 03/01/18 for H+N cancer management, underwent total laryngectomy 03/07/18. Chronic Afib, old CABG and post op the patient had NSVT then sustained VT and CHF. His EF dropped post op (had been up and down as an out patient, but most recent pre hospital EF was 55%). No significant bump in trops. Initially treated with external CD and amiodarone and plavix was added. Prolonged hospital stay and CD is still on. Currently he continues to be in CHF despite lasix with elevated BUN and BNP. He is quite anemic and trach oozing/bleeding has been an problem, trach tube removed today. MM VT: Decreased ectopy w/time out from surgery and medication (amiodarone). Ammiodarione will decrease ectopy but not risk of sudden . There is an indication for an ICD based on MM VT (this would be 2ary prevention) and ischemia CM and scar, but only if he has a reasonable life. expectancy of > 1 year. I recommend discussing prognosis range for laryngeal CA. If he has a good ENT prognosis, then ICD implantation could be discussed with the patient and Dr Rios. I recommending updating TFTs and LFT's prior to discharge as he is on amiodarone. I recommend checking DLCO (diffusion capacity) now (ordered). Ischemic CM: On metoprolol, lasix and Imdur. BUN elevated. Consider alternating lasix with aldactone for depressed EF, this may also improve BUN. Imdur I would only leave on if it provides symptomatic improvement for angina or CHF. If Imdur can be removed consider adding MARIA EUGENIA or ARB The patient is on metformin, consider converting to SGLP2 i as these have been shown to have mortality benefits in patients with CAD and CHF. CAD: As trops only nominally elevated post op and patient is very anemic, consider /recommend stopping Plavix. Continue ASA Continue Lipator. 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 However, he apparently was not on it as an outpatient either. Continue metoprolol. Contact his regular legal advisor Dr Lebron on this issue non urgently ( cardiology can do this). If Plavix stopped could consider anticoagulation in the future based on above findings.
[2018-04-12] MEDS: Atorvastatin* 40 MG TAB NG TUBE SCH (20:37)
[2018-04-12] MEDS: Terazosin CAP* 1 MG PO SCH (20:37)
--- NOTE | 2018-04-12 21:42 | PN ---
PROGRESS NOTE: DATE OF SERVICE: 04/12/18 HISTORY: The patient is still in the hospital. There has been a little concern from an ENT standpoint that there is some blood coming from his laryngectomy tube and the main issue also seems to be that they are still unsure about what to do from a cardiology standpoint. PHYSICAL EXAMINATION: I removed the laryngectomy tube. On the inferior aspect of the stoma, there is irritation where the tube is digging in with some blood coming from that spot. The stoma is completely matured at this point and I am leaving the laryngectomy tube out. I do not want to put it back in. His O2 sat on room air was 95% and he should not need any significant suctioning at this time. ASSESSMENT: Assessment is that there is a little bit of bleeding around the stoma from the irritation of the laryngectomy tube. This is not concerning to me; I am leaving it out. I spoke to Nat Brown NP, about this. [id number]/MASTER #: [id number] VALENTINE
[2018-04-12] MEDS ORDERED: EPINEPHrine SYR 0.1MG/ML* SYRINGE ONE ×2 (22:41→22:44)
[2018-04-12] MEDS ORDERED: Sodium Bicarbonate 8.4%* 50 ML SYRINGE ONE ×2 (22:42→22:43)
[2018-04-12] MEDS ORDERED: Propofol* 100 ML ONE (22:59)
[2018-04-12] MEDS ORDERED: methylPREDNISolone 125 MG* 2 ML VIAL IV ONE (23:09)
[2018-04-12] MEDS ORDERED: EPINEPHrine,Rac 2.25% NEB.SOL* 0.5 ML INH ONE (23:09)
--- NOTE | 2018-04-12 23:11 | PN ---
Progress Note - Progress Note Date of Service: 04/12/18 Note: ABC alert - RN heard life vest go off from room next door and then found patient unresponsive. CPR was started. Epi given, ETT placed prior to my arrival by RT and patient was being bagged at that time. MOnitor showed asystole. Compressions resumed, bicarb and second round of epi given. Re-eval of monitor showed NSR with a pulse and elevated BP via manual. Patient brought to ICU, shortly thereafter he became awake and was trying to sit up. ETT decannulated. Stridulent on exam, coarse breath sounds with poor aeration. Spoke with disposal plant operator who agreed with solumedrol and racemic epi. Will obtain, labs, EKG, ABG and CXR. Patient down for about 6 min prior to ROSC. Per staff patient has been having a lot of clots at site of stoma. Did not get aerosolized humidity throughout the day. Suspect mucus plug that may have caused vfib/vtach arrest. Will follow up labs, and further studies Spoke with NieceSander - HCP ( has dementia) - currently out of town will return and be here tomorrow afternoon CXR shows pulmonary edema - Lasix 40 mg IV x 1 Will give duoneb as well
[2018-04-12 23:19] LABS: Hematocrit 27 % (42-52); Hemoglobin 8.9 g/dl (14.0-18.0); Mean Corpuscular HGB Conc 33 g/dl (31-36); Mean Corpuscular Hemoglobin 31 pg (27-31); Mean Corpuscular Volume 93 fL (80-94); Mean Platelet Volume 6.9 fL (7.4-10.4); Platelet Count 200 10^3/ul (150-450); Red Blood Count 2.89 10^6/ul (4.00-5.40); Red Cell Distribution Width 19 % (10.5-15); White Blood Count 10.6 10^3/ul (3.5-10.8)
[2018-04-12] MEDS ORDERED: Albuterol/Ipratropium NEB.SOL* Albuterol 2.5 MG/Ipratropium 0.5 MG 3 ML ONE (23:31)
[2018-04-12] MEDS ORDERED: EPINEPHrine,Rac 2.25% NEB.SOL* 0.5 ML ONE (23:31)
[2018-04-12] MEDS ORDERED: Furosemide IV* 10 MG/ML VIAL (40 MG) IV ONE (23:32)
[2018-04-12] MEDS ORDERED: Albuterol/Ipratropium NEB.SOL* Albuterol 2.5 MG/Ipratropium 0.5 MG 3 ML INH ONE (23:33)
[2018-04-12 23:35] LABS: Albumin/Globulin Ratio 1.2 (1-3); BUN/Creatinine Ratio 22.7 (8-20); Calcium 7.9 mg/dL (8.6-10.3); EGFR African American 38.7 (>60); Globulin 2.6 g/dL (2-4); Potassium 4.1 mmol/L (3.5-5.0); Total Bilirubin 0.4 mg/dL (0.2-1.0); Total Protein 5.6 g/dL (6.4-8.9)
[2018-04-12 23:38] LABS: Troponin I 0.02 ng/mL (<0.04)
[2018-04-12 23:47] LABS: ABS Basophils 0.1 10^3/ul (0-0.2); ABS Eosinophils 0.2 10^3/ul (0-0.6); ABS Lymphocytes 1.2 10^3/ul (1.0-4.8); ABS Monocytes 0.8 10^3/ul (0-0.8); ABS Neutrophils 8.3 10^3/ul (1.5-7.7); ABS Nucleated RBC 0 10^3/ul; Eosinophil % 1.6 %; Lymphocyte % 11.6 %; Nucleated Red Blood Cells % 0
[2018-04-13 00:08] LABS: Magnesium 2.1 mg/dL (1.9-2.7)
[2018-04-13] MEDS ORDERED: Morphine 4 MG/ML VIAL (1 ml) 4 MG/ML VIAL ONE (02:52)
[2018-04-13] MEDS: Acetaminophen ADULT LIQ* 650 MG/20.3 ML UDC PEG TUBE PRN (06:02)
[2018-04-13] MEDS: Lactobacillus Acidophilus* 1 TAB PO SCH ×2 (08:00→21:18)
[2018-04-13] MEDS: Furosemide TAB* 20 MG PO SCH (08:00)
[2018-04-13] MEDS: Insulin LISPRO* 1 UNITS UNIT SUBCUT SCH ×4 (08:00→21:18)
[2018-04-13] MEDS: Isosorbide Mononitrate ER TAB* 30 MG PO SCH (08:00)
[2018-04-13] MEDS: Aspirin 81 mg CHEW TAB* 81 MG TAB.CHEW PO SCH (08:00)
[2018-04-13] MEDS: Metoprolol Tartrate TAB* 25 MG PO SCH (08:00)
[2018-04-13] MEDS: metFORMIN* 500 MG TAB PO SCH ×2 (08:00→17:45)
[2018-04-13] MEDS: Clopidogrel TAB* 75 MG PO SCH (08:00)
[2018-04-13] MEDS: Amiodarone TAB* 200 MG PO SCH (08:00)
[2018-04-13] MEDS: Morphine 4 MG/ML VIAL (1 ml) 4 MG/ML VIAL IV PRN ×2 (08:05→17:50)
[2018-04-13] MEDS ORDERED: Atropine SYRINGE* 0.1 MG/ML 10 ML SYRINGE (1 MG) ONE (10:07)
[2018-04-13] MEDS ORDERED: Atropine SYRINGE* 0.1 MG/ML 10 ML SYRINGE (1 MG) IV PUSH PRN (10:27)
[2018-04-13] MEDS: Lidocaine PATCH 5%* 1 PATCH TRANSDERM SCH (11:51)
[2018-04-13] MEDS: Insulin GLARGINE(*) 1 UNITS UNIT SUBCUT SCH (11:51)
--- NOTE | 2018-04-13 16:21 | PN ---
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 Patient was completely alert post-code. He required BVM intermittently. But now in on TM via trach site. He complains of right lower chest pain and difficulty raising his arm. Denies any chest pain, difficulty breathing or other complains Vital Signs: Temp Pulse Resp BP SpO2 FiO2 98.1 F 59 19 137/72 100 40 04/13/18 08:00 04/13/18 14:01 04/13/18 14:01 04/13/18 14:01 04/13/18 14:01 04/13 12:00 Physical Exam: Gen:NAD, trach collar HEENT:NCAT, neck supple, trach site CDI Lungs:AEBL, no wheezes Cardiac: S1S2 +, RRR Abdomen:SNTND, + BS Extremities:thin, no cyanosis, no edema Neuro:AAO x 3, nonfocal Fluid Balance (Past 24 Hours): I= O= Net Intake & Output 04/11/18 04/12/18 04/13/18 04/14/18 06:59 06:59 06:59 06:59 Intake Total 0 1420 1260 480 Output Total 1600 2150 1275 235 Balance 450 -730 -15 245 Weight 145 lb Intake: IV Fluids 30 NS 30 IVPB 50 magnesium sulfate 50 Oral 1970 1420 960 480 Packed Cells 300 Output: Urine 1600 2150 1275 235 Other: Estimated Void Small # Bowel Movements 0 1 Estimated Stool Amount Small Medium Small # Voids 0 1 ADLs: Meal Record Start: 03/01/18 13: 47 Freq: 09,13,18 Status: Inactive Protocol: Created 03/01/18 13:47 System (Rec: 03/01/18 13:47 System ICU-C16) Document 03/01/18 18:00 EMN1048 (Rec: 03/01/18 18:11 FZO1336 ICU-C16) Document 03/02/18 10:00 XGT4896 (Rec: 03/02/18 10:11 PLI7033 ICU-C16) Document 03/02/18 13:00 KJJ3052 (Rec: 03/02/18 16:04 WCS4701 ICU-C16) Document 03/02/18 18:00 KQA8040 (Rec: 03/02/18 19:38 WVK4549 ICU-C16) ADLs: Meal Record Start: 03/03/18 08: 01 Freq: 09,13,18 Status: Inactive Protocol: Created 03/03/18 08:01 WDS2218 (Rec: 03/03/18 08:01 GUL9166 ICU-C25) Document 03/03/18 09:00 XYB9459 (Rec: 03/03/18 10:41 QMT6605 ICU-C15) Document 03/03/18 13:00 NKO8481 (Rec: 03/03/18 14:09 NWB5357 ICU-C15) Document 03/03/18 18:36 GBK8416 (Rec: 03/03/18 18:37 FUL3947 ICU-C15) Document 03/04/18 09:00 KID5379 (Rec: 03/04/18 09:48 XXU8773 ICU-C15) Document 03/04/18 13:00 VSJ4771 (Rec: 03/04/18 13:33 HHS3520 ICU-C11) Document 03/05/18 10:02 UTR7502 (Rec: 03/05/18 10:03 UTI6848 ICU-M29) Document 03/05/18 14:13 OXQ5821 (Rec: 03/05/18 14:13 CBD7522 ICU-C12) Document 03/05/18 18:52 XED9659 (Rec: 03/05/18 18:52 DYJ3275 ICU-C25) Document 03/06/18 09:00 OUO4538 (Rec: 03/06/18 11:52 DIH9000 ICU-C07) Document 03/06/18 13:00 ZYU3056 (Rec: 03/06/18 13:45 UKU2526 ICU-C07) Document 03/07/18 09:00 PZS5485 (Rec: 03/07/18 09:26 MAY1687 ICU-L03) Document 03/07/18 17:50 FOV4276 (Rec: 03/07/18 17:50 NRF3578 ICU-L03) Document 03/08/18 09:00 SQO8993 (Rec: 03/08/18 10:02 IMF4719 ICU-C15) Document 03/08/18 13:00 HBK8666 (Rec: 03/08/18 14:32 YHS4838 ICU-C15) Document 03/08/18 18:00 KZD2613 (Rec: 03/08/18 18:14 TSZ0942 ICU-C15) ADLs: Meal Record Start: 03/15/18 16: 35 Freq: 09,13,18 Status: Active Protocol: Created 03/15/18 16:35 GCD4954 (Rec: 03/15/18 16:35 JQG2645 ICU-M25) Document 03/15/18 17:51 HHK8113 (Rec: 03/15/18 17:51 OTD9110 ICU-C25) Document 03/16/18 09:00 FPF0436 (Rec: 03/16/18 12:57 JUV4852 ICU-C06) Document 03/16/18 13:00 ZVN7498 (Rec: 03/16/18 14:55 SNJ1752 ICU-C06) Document 03/17/18 09:00 RZK8183 (Rec: 03/17/18 10:00 MYD9859 ICU-C07) Document 03/17/18 13:05 FVZ1371 (Rec: 03/17/18 13:44 YIQ6960 ICU-C08) Document 04/13/18 09:00 ESA1566 (Rec: 04/13/18 09:12 EDO8727 ICU-C12) Document 04/13/18 13:00 EXP1398 (Rec: 04/13/18 13:30 MFV4103 ICU-C12) ADLs: Meal Record Start: 03/17/18 15: 42 Freq: DAILY@0900,1400,1800 Status: Hold Protocol: Created 03/17/18 15:42 IVG6251 (Rec: 03/17/18 15:42 CEE6583 ICU-C08) Document 03/17/18 18:00 JYY7052 (Rec: 03/17/18 22:06 TLN8121 TELE-C35) Document 03/18/18 09:00 LQQ3675 (Rec: 03/18/18 11:38 WIE3175 TELE-C09) Document 03/18/18 14:00 RQQ5490 (Rec: 03/18/18 14:43 CEJ7531 TELE-C09) Document 03/18/18 18:00 YOX9960 (Rec: 03/18/18 21:39 BFR2822 TELE-C07) Document 03/19/18 09:00 QON9942 (Rec: 03/19/18 09:06 JMZ1170 TELE-C05) Document 03/19/18 14:00 XRF7501 (Rec: 03/19/18 14:50 NYY5082 TELE-C09) Document 03/19/18 18:00 UGL2623 (Rec: 03/19/18 21:28 PSY9278 TELE-C07) Document 03/20/18 11:06 CXB8929 (Rec: 03/20/18 11:07 ROW9098 TELE-C10) Document 03/20/18 14:21 QCW5674 (Rec: 03/20/18 14:21 KWN7612 TELE-C11) Document 03/20/18 18:00 CZF3191 (Rec: 03/20/18 21:30 DDE0027 TELE-C07) Document 03/21/18 09:00 ZOG5574 (Rec: 03/21/18 15:00 ZLO4886 TELE-C13) Document 03/21/18 14:00 ZON3598 (Rec: 03/21/18 15:15 BLK0023 TELE-C13) Document 03/21/18 18:00 CDZ4076 (Rec: 03/21/18 18:48 WZQ2387 TELE-C01) Document 03/22/18 09:00 KGF9185 (Rec: 03/22/18 14:48 VFK2222 TELE-C09) Document 03/22/18 14:00 HIP8590 (Rec: 03/22/18 15:07 DPV0020 TELE-C08) Document 03/22/18 18:00 IHA1939 (Rec: 03/22/18 20:00 FWG8612 TELE-C13) Document 03/23/18 09:00 VSM4489 (Rec: 03/23/18 14:26 PCN6497 TELE-C10) Document 03/23/18 14:00 IQP6732 (Rec: 03/23/18 14:41 LJJ4076 TELE-C10) Document 03/23/18 17:53 QZC1333 (Rec: 03/23/18 17:53 TAW0582 TELE-C05) Document 03/24/18 09:00 ZCD9725 (Rec: 03/24/18 15:26 CQV4602 TELE-C05) Document 03/24/18 14:00 YVB5706 (Rec: 03/24/18 15:27 KGX2033 TELE-C05) Document 03/24/18 18:00 TMQ2137 (Rec: 03/24/18 18:35 AXE8893 TELE-C01) Document 03/25/18 09:00 OEW8254 (Rec: 03/25/18 15:09 GPD0724 TELE-C09) Document 03/25/18 14:00 GUB8242 (Rec: 03/25/18 15:10 EZD8190 TELE-C09) Document 03/25/18 18:00 KDP4620 (Rec: 03/25/18 18:49 DPA6880 TELE-C07) Document 03/26/18 08:57 MDM9575 (Rec: 03/26/18 08:58 QYI1393 TELE-M11) Document 03/26/18 14:00 RIV5293 (Rec: 03/26/18 14:04 CVR8583 TELE-C09) Document 03/26/18 18:00 XQU0624 (Rec: 03/26/18 18:29 QDT4063 TELE-C07) Document 03/27/18 09:00 VIH0424 (Rec: 03/27/18 12:04 VWV4358 TELE-C07) Document 03/27/18 14:00 IMC5966 (Rec: 03/27/18 14:36 QIH6535 TELE-C13) Document 03/27/18 21:04 YFL6533 (Rec: 03/27/18 21:04 CSD8701 TELE-C10) Document 03/28/18 09:00 QQO0124 (Rec: 03/28/18 11:20 IFX4343 TELE-C13) Document 03/28/18 14:00 CWO3023 (Rec: 03/28/18 14:05 XPT0463 TELE-C13) Document 03/28/18 20:37 PUZ2797 (Rec: 03/28/18 20:37 NUG3521 TELE-C05) Document 03/29/18 08:00 FCN9087 (Rec: 03/29/18 13:24 JXP0061 TELE-C07) Document 03/29/18 09:00 QGL9614 (Rec: 03/29/18 15:27 PVH1353 TELE-C07) Document 03/29/18 14:00 OOA5622 (Rec: 03/29/18 15:30 NIO5730 TELE-C07) Document 03/29/18 18:00 BKW0156 (Rec: 03/29/18 21:26 HMW9975 TELE-C03) Document 03/30/18 09:00 NXW4303 (Rec: 03/30/18 10:06 NQA5972 TELE-C13) Document 03/30/18 14:00 JLQ9134 (Rec: 03/30/18 14:02 VNK9654 TELE-C05) Document 03/30/18 21:26 NNW7825 (Rec: 03/30/18 21:26 BSS3535 TELE-C13) Document 03/31/18 09:00 GJD6945 (Rec: 03/31/18 10:25 ASW8931 TELE-C05) Document 03/31/18 14:00 GKX3815 (Rec: 03/31/18 14:20 DBB8568 TELE-C13) Document 03/31/18 18:00 SGB1134 (Rec: 03/31/18 18:37 TOY1563 TELE-C01) Document 04/01/18 09:00 WWB1070 (Rec: 04/01/18 11:29 OVD4708 TELE-C09) Document 04/01/18 14:00 WJY8845 (Rec: 04/01/18 14:30 XTL1677 TELE-C09) Document 04/01/18 18:00 ARM5203 (Rec: 04/01/18 19:55 BQA8508 TELE-C05) Document 04/02/18 09:00 MVA0010 (Rec: 04/02/18 11:09 UOA9292 TELE-C10) Document 04/02/18 14:00 UXM4771 (Rec: 04/02/18 14:47 EFS5654 TELE-C10) Document 04/02/18 22:23 DSP9728 (Rec: 04/02/18 22:24 EWF1174 TELE-C09) Document 04/03/18 09:00 SVS7462 (Rec: 04/03/18 10:17 UNR0810 TELE-C09) Document 04/03/18 14:00 JUX7026 (Rec: 04/03/18 15:14 XCY0020 TELE-C09) Document 04/03/18 18:00 ROL6925 (Rec: 04/03/18 20:46 WTY5799 TELE-C01) Document 04/04/18 09:00 GMO8197 (Rec: 04/04/18 09:59 GOR7019 TELE-C10) Document 04/04/18 14:00 LVZ9641 (Rec: 04/04/18 14:17 QGG4626 TELE-C10) Document 04/04/18 21:05 VWT3484 (Rec: 04/04/18 21:05 TUW5039 TELE-C08) Document 04/05/18 09:00 JZW8913 (Rec: 04/05/18 14:39 RDP5694 TELE-C05) Document 04/05/18 14:00 DGK3168 (Rec: 04/05/18 14:45 AQA9876 TELE-C05) Document 04/06/18 09:00 JQL8234 (Rec: 04/06/18 18:25 VGZ1837 MED-C09) Document 04/06/18 14:00 BDU7179 (Rec: 04/06/18 18:25 BRF7939 MED-C09) Document 04/06/18 18:00 OCI7944 (Rec: 04/06/18 19:14 FWW9729 MED-C09) Document 04/07/18 09:00 YMJ0534 (Rec: 04/07/18 12:40 JBW3279 MED-C04) Document 04/07/18 14:00 IVS0849 (Rec: 04/07/18 16:07 ULV0522 MED-C13) Document 04/07/18 18:00 KOH3509 (Rec: 04/07/18 18:35 MPN0201 MED-C14) Document 04/08/18 09:00 MEU2731 (Rec: 04/08/18 09:54 URK3154 MED-C09) Document 04/08/18 14:00 TCI8627 (Rec: 04/08/18 18:54 ELO2962 MED-C11) Document 04/08/18 18:00 AKP5783 (Rec: 04/08/18 18:54 WRQ1604 MED-C11) Document 04/09/18 09:00 KAK7040 (Rec: 04/09/18 10:08 VCR3099 MED-C11) Document 04/09/18 13:53 ZJQ8243 (Rec: 04/09/18 13:53 JIA5445 MED-C11) Document 04/09/18 18:00 SBL3555 (Rec: 04/09/18 18:19 PLP9111 MED-C09) Document 04/10/18 09:00 NPN6027 (Rec: 04/10/18 10:08 QPJ4905 MED-C09) Document 04/10/18 13:52 PUW2933 (Rec: 04/10/18 13:53 BKX5449 MED-C09) Document 04/10/18 18:00 VFM1928 (Rec: 04/10/18 22:45 ZVI9941 MED-C13) Document 04/11/18 09:00 COM6334 (Rec: 04/11/18 10:16 RAF2955 MED-C09) Document 04/11/18 18:22 WDN2292 (Rec: 04/11/18 18:23 KBX5342 MED-M20) Document 04/12/18 09:00 ZIC9645 (Rec: 04/12/18 09:54 AGI6322 MED-C11) Document 04/12/18 14:00 RKR8122 (Rec: 04/12/18 17:02 LXM6968 MED-C11) Document 04/12/18 18:00 XXH8386 (Rec: 04/12/18 20:08 YPB1826 MED-C11) Intake and Output Start: 03/01/18 13: 47 Freq: 06,14,2200 Status: Inactive Protocol: Created 03/01/18 13:47 System (Rec: 03/01/18 13:47 System ICU-C16) Document 03/01/18 18:00 PPW8246 (Rec: 03/01/18 18:10 NQP1687 ICU-C16) Document 03/01/18 20:00 RRI3779 (Rec: 03/01/18 20:11 BXP2600 ICU-C16) Document 03/01/18 21:00 NGE9801 (Rec: 03/01/18 22:03 YOT2682 ICU-C16) Document 03/02/18 01:00 MYT2027 (Rec: 03/02/18 01:39 FJA3214 ICU-C16) Document 03/02/18 04:00 ZSX0263 (Rec: 03/02/18 04:15 AHX2719 ICU-C16) Document 03/02/18 04:00 END3926 (Rec: 03/02/18 04:12 OPJ4545 ICU-M32) Document 03/02/18 05:00 ZIR1653 (Rec: 03/02/18 05:33 VFO1033 ICU-M32) Document 03/02/18 06:00 SZK6619 (Rec: 03/02/18 06:25 SPO5756 ICU-C16) Document 03/02/18 07:27 MBY9752 (Rec: 03/02/18 07:27 TWY8570 ICU-C16) Document 03/02/18 10:10 BEF9980 (Rec: 03/02/18 10:10 DUL1909 ICU-C16) Document 03/02/18 14:17 VUI9605 (Rec: 03/02/18 14:17 BKI3820 ICU-C16) Document 03/02/18 15:24 TIY5149 (Rec: 03/02/18 15:24 OIG4212 ICU-C16) Document 03/02/18 18:30 IYD2831 (Rec: 03/02/18 19:28 UIZ8904 ICU-C16) Document 03/02/18 19:22 LDR2419 (Rec: 03/02/18 19:22 QRE2352 ICU-M32) Document 03/02/18 21:00 SSL1402 (Rec: 03/02/18 21:43 FLX6598 ICU-C15) Document 03/02/18 23:24 HJA5747 (Rec: 03/02/18 23:24 NYL5102 ICU-M32) Document 03/03/18 01:44 UWJ7414 (Rec: 03/03/18 01:44 VLW7117 ICU-C15) Document 03/03/18 02:32 XUL5510 (Rec: 03/03/18 02:32 IEO1964 ICU-C15) Document 03/03/18 05:11 SUR5739 (Rec: 03/03/18 05:11 KGF6949 ICU-C15) Document 03/03/18 06:38 RXD1540 (Rec: 03/03/18 06:38 ZNI1773 ICU-C15) Intake and Output Start: 03/03/18 08: 01 Freq: DAILY@0600,1400,2200 Status: Complete Protocol: Created 03/03/18 08:01 KED6250 (Rec: 03/03/18 08:01 EUQ6784 ICU-C25) Document 03/03/18 13:43 LUI7488 (Rec: 03/03/18 13:43 GHT4999 ICU-C20) Document 03/03/18 20:25 VUO9169 (Rec: 03/03/18 20:25 VUM3154 ICU-L03) Document 03/03/18 23:42 FTR9317 (Rec: 03/03/18 23:42 OAR1615 ICU-L03) Document 03/04/18 03:00 XGF0365 (Rec: 03/04/18 04:24 YCN8679 ICU-L03) Document 03/04/18 05:02 YNX8225 (Rec: 03/04/18 05:02 GMI3786 ICU-L03) Document 03/04/18 13:23 IJI8132 (Rec: 03/04/18 13:23 RDT1333 ICU-C15) Document 03/04/18 14:00 TIZ5867 (Rec: 03/04/18 14:03 DKQ5969 ICU-C15) Document 03/04/18 20:51 AGB6450 (Rec: 03/04/18 20:51 MFH0280 ICU-C15) Document 03/04/18 21:53 UWK4565 (Rec: 03/04/18 21:53 XVB8166 ICU-C15) Document 03/04/18 22:52 FGR5993 (Rec: 03/04/18 22:52 RUA3571 ICU-C15) Document 03/05/18 01:58 EVI9524 (Rec: 03/05/18 01:58 HTH4584 ICU-C15) Document 03/05/18 04:00 THR2413 (Rec: 03/05/18 05:37 IAZ0543 ICU-C15) Document 03/05/18 05:55 FAE7518 (Rec: 03/05/18 05:55 KZJ9553 ICU-C15) Document 03/05/18 08:11 BQK5142 (Rec: 03/05/18 08:11 NIL6206 ICU-M29) Document 03/05/18 10:04 ERL7637 (Rec: 03/05/18 10:04 BQS6745 ICU-M29) Document 03/05/18 14:13 TBW8321 (Rec: 03/05/18 14:13 ISG4371 ICU-C12) Document 03/05/18 16:15 YEL5415 (Rec: 03/05/18 16:15 EHZ3555 ICU-C12) Document 03/05/18 22:00 ACY3302 (Rec: 03/06/18 01:57 UUH1179 ICU-C25) Document 03/06/18 06:00 REW5154 (Rec: 03/06/18 06:21 MVL8265 ICU-C07) Document 03/06/18 08:51 KIO4427 (Rec: 03/06/18 08:51 PVY4339 ICU-C07) Document 03/06/18 14:00 BNK2997 (Rec: 03/06/18 14:02 BBV8551 ICU-C07) Document 03/06/18 22:00 HHC1276 (Rec: 03/07/18 00:15 RQW7409 ICU-C25) Document 03/07/18 06:00 PRX0611 (Rec: 03/07/18 06:53 QFH6498 ICU-C25) Document 03/07/18 08:46 XNJ6576 (Rec: 03/07/18 08:47 ZFQ0992 ICU-L03) Document 03/07/18 17:02 MXT3720 (Rec: 03/07/18 17:02 BDK5070 ICU-L03) Document 03/07/18 17:15 RKF1736 (Rec: 03/07/18 17:16 ARP2575 ICU-L03) Document 03/07/18 22:00 NXQ4266 (Rec: 03/08/18 01:41 LJE8041 ICU-C15) Document 03/08/18 06:00 TEB3761 (Rec: 03/08/18 07:05 DOG1900 ICU-C15) Document 03/08/18 08:16 QBB8313 (Rec: 03/08/18 08:16 RCZ2432 ICU-C15) Document 03/08/18 09:00 JAC9921 (Rec: 03/08/18 10:00 PEO2849 ICU-C15) Document 03/08/18 12:24 NNZ4010 (Rec: 03/08/18 12:24 MWL4455 ICU-C15) Document 03/08/18 14:00 NVH5886 (Rec: 03/08/18 14:35 GMP9207 ICU-C15) Document 03/08/18 14:00 YGI8008 (Rec: 03/08/18 18:13 FTO9923 ICU-C15) Document 03/08/18 18:00 KZA9807 (Rec: 03/08/18 18:14 FLK0752 ICU-C15) Document 03/08/18 22:00 FUD9697 (Rec: 03/09/18 00:45 TQD6745 ICU-C15) Document 03/09/18 04:34 XEY5154 (Rec: 03/09/18 04:36 XUP4012 ICU-M29) Document 03/09/18 06:00 FFB3297 (Rec: 03/09/18 06:02 RBV6480 ICU-C15) Document 03/09/18 14:20 LCU7846 (Rec: 03/09/18 14:23 DJQ4381 ICU-L03) Document 03/09/18 22:00 WAJ9774 (Rec: 03/09/18 22:22 YKT3981 ICU-C15) Document 03/10/18 04:43 JAX5956 (Rec: 03/10/18 04:43 DFY1248 ICU-C15) Document 03/10/18 06:04 DJS9623 (Rec: 03/10/18 06:04 SLY1725 ICU-C14) Document 03/10/18 14:10 ODU4427 (Rec: 03/10/18 14:13 XEZ4009 ICU-C15) Document 03/10/18 17:25 SZL8749 (Rec: 03/10/18 17:25 LWV6245 SSU-M18) Document 03/10/18 18:58 FYD3670 (Rec: 03/10/18 18:59 MDU4627 SSU-C11) Document 03/10/18 22:24 UQU8604 (Rec: 03/10/18 22:24 YTB0404 SSU-M17) Document 03/10/18 22:34 QYM0734 (Rec: 03/10/18 22:35 CKT1467 SSU-M07) Document 03/11/18 00:05 AJH5362 (Rec: 03/11/18 03:20 PXO7006 SSU-C12) Document 03/11/18 02:49 KPF2955 (Rec: 03/11/18 02:50 FFF7596 SSU-M17) Document 03/11/18 06:45 CJA2857 (Rec: 03/11/18 06:45 FRV6025 SSU-M17) Document 03/11/18 14:50 INV5258 (Rec: 03/11/18 14:51 FTT4347 SSU-C06) Document 03/11/18 16:26 ONK2703 (Rec: 03/11/18 16:27 FKB2696 SSU-M17) Document 03/11/18 22:27 MSH3673 (Rec: 03/11/18 22:28 ZUB2363 SSU-M17) Document 03/11/18 23:40 PQZ2867 (Rec: 03/11/18 23:40 DSX3160 SSU-M17) Document 03/12/18 03:36 FFR8637 (Rec: 03/12/18 03:36 JPT8790 SSU-M17) Document 03/12/18 05:00 ORZ9624 (Rec: 03/12/18 08:34 AEN8240 SSU-M07) Document 03/12/18 06:06 KLV0649 (Rec: 03/12/18 06:06 ZJM9863 SSU-M17) Document 03/12/18 14:21 BMD7720 (Rec: 03/12/18 14:22 EYO1109 SSU-C06) Document 03/12/18 21:50 CVM0244 (Rec: 03/12/18 21:51 WNZ5185 SSU-L03) Document 03/13/18 00:04 PPM9325 (Rec: 03/13/18 00:04 GFM9417 SSU-M07) Document 03/13/18 03:43 OCF8518 (Rec: 03/13/18 03:43 RZC7760 SSU-M18) Document 03/13/18 04:53 LKT5484 (Rec: 03/13/18 04:53 BUZ5876 SSU-M07) Document 03/13/18 14:00 OON0278 (Rec: 03/13/18 14:42 PER2461 SSU-C01) Document 03/13/18 22:27 FWZ7864 (Rec: 03/13/18 22:27 IPJ4324 SSU-C19) Document 03/14/18 05:07 HOX0004 (Rec: 03/14/18 05:07 JLH2829 SSU-M06) Document 03/14/18 11:00 CFI5463 (Rec: 03/14/18 12:21 WGH4551 SSU-C19) Document 03/14/18 14:00 UWI9447 (Rec: 03/14/18 14:16 IAE3836 SSU-C03) Document 03/14/18 19:45 MQW4798 (Rec: 03/15/18 05:45 LZZ5317 SSU-C09) Document 03/14/18 22:09 WZE8822 (Rec: 03/14/18 22:11 LMV0382 SSU-M17) Document 03/14/18 22:45 NIJ1426 (Rec: 03/15/18 05:45 CVF8467 SSU-C09) Document 03/14/18 23:45 GPS1078 (Rec: 03/15/18 05:44 VPT4800 SSU-C09) Document 03/15/18 00:30 JIN8155 (Rec: 03/15/18 05:44 LTD7885 SSU-C09) Document 03/15/18 01:30 VPW8798 (Rec: 03/15/18 05:44 ALW0611 SSU-C09) Document 03/15/18 02:45 REN0879 (Rec: 03/15/18 05:43 IQI4326 SSU-C09) Document 03/15/18 05:54 QRC2168 (Rec: 03/15/18 05:54 RFY1678 SSU-L02) Document 03/15/18 13:33 KTF3699 (Rec: 03/15/18 13:33 QEK9417 SSU-C03) Intake and Output Start: 03/10/18 18: 58 Freq: Status: Complete Protocol: Created 03/10/18 18:58 PMR6815 (Rec: 03/10/18 18:58 RLV8629 SSU-C11) Document 03/11/18 08:42 MXF5449 (Rec: 03/11/18 08:42 PPK2342 SSU-C05) Document 03/12/18 03:36 DTD8187 (Rec: 03/12/18 03:36 AQF2730 SSU-M17) Document 03/12/18 06:12 PBH3125 (Rec: 03/12/18 06:12 LTO4483 SSU-M17) Document 03/14/18 05:45 XAQ0847 (Rec: 03/14/18 05:45 TRE9856 SSU-M17) Document 03/16/18 15:31 VNA5767 (Rec: 03/16/18 15:31 LKJ9564 ICU-M25) Document 03/19/18 05:09 FWG6567 (Rec: 03/19/18 05:10 ACD3684 TELE-M01) Document 03/20/18 07:30 VJK6734 (Rec: 03/20/18 09:53 MNL0336 TELE-C01) Document 03/20/18 09:00 SXV2705 (Rec: 03/20/18 09:53 CBU9787 TELE-C01) Intake and Output Start: 03/15/18 16: 35 Freq: 06,14,2200 Status: Complete Protocol: Created 03/15/18 16:35 SSZ8586 (Rec: 03/15/18 16:35 YOQ0970 ICU-M25) Document 03/15/18 22:00 MJT8406 (Rec: 03/15/18 22:57 CQX1063 ICU-C06) Document 03/15/18 23:30 UCF1782 (Rec: 03/16/18 00:40 UME5210 ICU-C06) Document 03/16/18 06:39 ZQB2152 (Rec: 03/16/18 06:40 AEC2127 ICU-M25) Document 03/16/18 13:00 SON2052 (Rec: 03/16/18 14:50 PYT6343 ICU-C06) Document 03/16/18 14:00 QMV0537 (Rec: 03/16/18 14:50 HUZ5607 ICU-C06) Document 03/16/18 14:50 VSU6955 (Rec: 03/16/18 14:50 RYT4465 ICU-C06) Document 03/16/18 18:46 LCD7399 (Rec: 03/16/18 18:46 VZG0074 ICU-M25) Document 03/16/18 23:58 PPO6934 (Rec: 03/16/18 23:58 EKS8975 ICU-M25) Document 03/17/18 06:00 CWI2316 (Rec: 03/17/18 06:51 PYQ8822 ICU-C07) Document 03/17/18 14:00 QEV3803 (Rec: 03/17/18 15:34 JCV3650 ICU-C18) Intake and Output Start: 03/17/18 15: 42 Freq: DAILY@0600,1400,2200 Status: Active Protocol: Created 03/17/18 15:42 SMD8697 (Rec: 03/17/18 15:42 XNR3775 ICU-C08) Document 03/17/18 22:00 KBJ7736 (Rec: 03/17/18 22:08 WWQ0476 TELE-C35) Document 03/18/18 06:00 LMP3959 (Rec: 03/18/18 06:34 IVS1400 TELE-C34) Document 03/18/18 14:00 KEJ4557 (Rec: 03/18/18 14:43 XCK6833 TELE-C09) Document 03/18/18 21:40 IPQ0028 (Rec: 03/18/18 21:40 YKD1374 TELE-C07) Document 03/19/18 01:30 EPV4837 (Rec: 03/19/18 01:30 YHJ5933 TELE-M01) Document 03/19/18 03:50 CYH0091 (Rec: 03/19/18 04:08 SZO9551 TELE-M01) Document 03/19/18 04:12 ROM8393 (Rec: 03/19/18 04:12 KHN3894 TELE-M01) Document 03/19/18 06:18 OAP9900 (Rec: 03/19/18 06:18 FLP3578 TELE-M01) Document 03/19/18 12:00 SOA7993 (Rec: 03/19/18 14:00 LIH5269 TELE-C10) Document 03/19/18 14:00 QFK0049 (Rec: 03/19/18 14:50 MWI8790 TELE-C09) Document 03/19/18 21:29 URH0720 (Rec: 03/19/18 21:30 CZE4143 TELE-C07) Document 03/20/18 04:48 MED4335 (Rec: 03/20/18 04:48 MSY6311 HOSP-C11) Document 03/20/18 05:09 NRN5543 (Rec: 03/20/18 05:09 WQW0735 HOSP-C11) Document 03/20/18 14:00 CDW6666 (Rec: 03/20/18 14:31 IIZ9807 TELE-C09) Document 03/20/18 21:30 GAP6457 (Rec: 03/20/18 21:31 HZG4574 TELE-C07) Document 03/21/18 05:33 GRL3387 (Rec: 03/21/18 05:34 NIL1886 TELE-C09) Document 03/21/18 14:00 XTW4000 (Rec: 03/21/18 15:15 PCT7022 TELE-C13) Document 03/21/18 18:49 QQV2873 (Rec: 03/21/18 18:50 BOC2497 TELE-C01) Document 03/21/18 22:00 ZUO3877 (Rec: 03/21/18 23:14 HJY1981 TELE-M12) Document 03/22/18 06:00 BJU3888 (Rec: 03/22/18 07:32 CLE6849 TELE-C01) Document 03/22/18 14:00 GAR5846 (Rec: 03/22/18 15:07 WLO6330 TELE-C08) Document 03/22/18 22:00 XNN2398 (Rec: 03/22/18 22:32 WCL6860 TELE-C13) Document 03/23/18 06:00 LUJ3688 (Rec: 03/23/18 06:42 XEH3040 TELE-C34) Document 03/23/18 14:00 NXB9548 (Rec: 03/23/18 14:41 EKX6501 TELE-C10) Document 03/23/18 22:00 XRI0273 (Rec: 03/23/18 22:33 CSB1538 TELE-C01) Document 03/24/18 06:00 STE7112 (Rec: 03/24/18 06:47 GUK0146 TELE-C34) Document 03/24/18 14:00 FKN4627 (Rec: 03/24/18 15:27 EID2835 TELE-C05) Document 03/24/18 22:00 BMY7245 (Rec: 03/24/18 22:28 JXL3767 TELE-C01) Document 03/25/18 06:00 FZC1632 (Rec: 03/25/18 06:27 IAU1035 TELE-C34) Document 03/25/18 14:00 CEU4374 (Rec: 03/25/18 15:11 FBO6202 TELE-C09) Document 03/25/18 22:00 ISR5800 (Rec: 03/25/18 22:24 XIZ6154 TELE-C07) Document 03/26/18 06:00 VUY3082 (Rec: 03/26/18 06:49 ZSU5755 TELE-C32) Document 03/26/18 14:00 ACF7545 (Rec: 03/26/18 14:04 LTP0629 TELE-C09) Document 03/26/18 21:41 OWJ3755 (Rec: 03/26/18 21:41 JRC5033 TELE-C09) Document 03/27/18 06:00 LRZ4331 (Rec: 03/27/18 06:23 UJW2681 TELE-C32) Document 03/27/18 14:00 SCE7464 (Rec: 03/27/18 14:36 SJX6486 TELE-C13) Document 03/27/18 21:55 NWQ9850 (Rec: 03/27/18 21:57 ABT6444 TELE-C10) Document 03/28/18 06:00 EWW8460 (Rec: 03/28/18 06:28 HZC8005 TELE-C34) Document 03/28/18 14:00 JZV4641 (Rec: 03/28/18 14:05 WFP1890 TELE-C13) Document 03/28/18 21:47 KNG4875 (Rec: 03/28/18 21:50 YLW7704 TELE-C05) Document 03/29/18 06:00 WLD9098 (Rec: 03/29/18 06:51 GKE6547 TELE-C32) Document 03/29/18 14:00 TOT7093 (Rec: 03/29/18 14:58 EDN5395 TELE-C13) Document 03/29/18 21:26 GTF8292 (Rec: 03/29/18 21:27 QSU6037 TELE-C03) Document 03/30/18 06:00 YJY4071 (Rec: 03/30/18 06:32 NGS9859 TELE-C34) Document 03/30/18 14:00 ZOP9740 (Rec: 03/30/18 14:51 LMN6254 TELE-C13) Document 03/30/18 21:47 CVX4732 (Rec: 03/30/18 21:48 ZAI3263 TELE-C13) Document 03/31/18 06:00 LUF3651 (Rec: 03/31/18 06:50 MNT8275 TELE-C34) Document 03/31/18 14:00 YEJ0483 (Rec: 03/31/18 14:42 IFH1706 TELE-C05) Document 03/31/18 22:00 TNV7512 (Rec: 03/31/18 22:14 XDT7638 TELE-C07) Document 04/01/18 06:00 RZE4786 (Rec: 04/01/18 06:52 QHJ2381 TELE-C34) Document 04/01/18 13:28 VSW5423 (Rec: 04/01/18 13:28 DKM8853 TELE-C05) Document 04/01/18 19:47 BMC4817 (Rec: 04/01/18 19:47 BQP8267 TELE-C01) Document 04/01/18 22:00 ZJH4312 (Rec: 04/01/18 22:58 UCZ2978 TELE-C05) Document 04/02/18 06:00 ASD6307 (Rec: 04/02/18 06:31 FET1020 TELE-C34) Document 04/02/18 12:36 TJU6789 (Rec: 04/02/18 12:36 VSB6672 TELE-C05) Document 04/02/18 22:24 LAG4140 (Rec: 04/02/18 22:25 NSY7083 TELE-C09) Document 04/03/18 06:00 WMH7295 (Rec: 04/03/18 06:15 WJY3960 TELE-C34) Document 04/03/18 12:22 KTZ4253 (Rec: 04/03/18 12:22 ZTT0351 TELE-C05) Document 04/03/18 21:55 YIH2451 (Rec: 04/03/18 21:55 MVZ2305 TELE-C01) Document 04/04/18 06:00 GOK3039 (Rec: 04/04/18 07:43 DIE4155 TELE-C01) Document 04/04/18 14:00 OEY5486 (Rec: 04/04/18 14:17 VQA7470 TELE-C10) Document 04/04/18 22:03 WFX3935 (Rec: 04/04/18 22:05 ZGU5177 TELE-C08) Document 04/05/18 05:14 XXL4508 (Rec: 04/05/18 05:15 XOJ1362 TELE-C10) Document 04/05/18 14:00 FTM1410 (Rec: 04/05/18 14:45 PRL9095 TELE-C05) Document 04/05/18 21:48 YEJ1122 (Rec: 04/05/18 21:49 WIP7942 MED-C02) Document 04/06/18 06:00 XJN5704 (Rec: 04/06/18 07:12 MPK6283 MED-C11) Document 04/06/18 14:00 TER0927 (Rec: 04/06/18 18:25 HYS1533 MED-C09) Document 04/06/18 20:44 ROY6612 (Rec: 04/07/18 20:44 UQI5077 MED-M04) Document 04/06/18 21:12 QNI3917 (Rec: 04/06/18 21:12 ENQ6704 MED-C15) Document 04/07/18 05:18 PBF7132 (Rec: 04/07/18 05:19 UMQ5131 MED-C15) Document 04/07/18 14:00 SIO3825 (Rec: 04/07/18 16:07 LEE3121 MED-C13) Document 04/07/18 20:45 MDW5087 (Rec: 04/07/18 20:45 JSW5092 MED-M04) Document 04/07/18 22:00 PPQ4101 (Rec: 04/07/18 22:46 ZZR7576 MED-C15) Document 04/08/18 05:30 IQJ1964 (Rec: 04/08/18 05:30 OCD8612 MED-M04) Document 04/08/18 05:46 MNY4903 (Rec: 04/08/18 05:47 DUL0671 MED-C15) Document 04/08/18 08:27 XCI8032 (Rec: 04/08/18 08:28 WWY0510 MED-C09) Document 04/08/18 14:00 RZN6614 (Rec: 04/08/18 18:54 QZY1132 MED-C11) Document 04/08/18 22:00 FUV2355 (Rec: 04/08/18 22:29 XDX1124 MED-C02) Document 04/09/18 05:59 FBN5815 (Rec: 04/09/18 06:01 FCG8152 MED-M11) Document 04/09/18 12:38 OXK5487 (Rec: 04/09/18 12:38 RSI2002 MED-C11) Document 04/09/18 14:00 KYO2451 (Rec: 04/09/18 14:12 LLF8768 MED-C11) Document 04/09/18 21:23 SUB2316 (Rec: 04/09/18 21:24 BXF1070 MED-C09) Document 04/10/18 04:56 HEW4556 (Rec: 04/10/18 04:57 MXV5305 MED-C09) Document 04/10/18 14:00 [id number] (Rec: 04/10/18 15:26 [id number] MED-C09) Document 04/10/18 22:00 [id number] (Rec: 04/10/18 22:48 [id number] MED-C13) Document 04/11/18 05:07 [id number] (Rec: 04/11/18 05:07 [id number] MED-C09) Document 04/11/18 06:06 [id number] (Rec: 04/11/18 06:06 [id number] MED-M18) Document 04/11/18 18:22 [id number] (Rec: 04/11/18 18:23 [id number] MED-M20) Document 04/11/18 22:00 [id number] (Rec: 04/11/18 22:26 [id number] MED-C15) Document 04/12/18 06:00 [id number] (Rec: 04/12/18 07:03 [id number] MED-C11) Document 04/12/18 14:00 [id number] (Rec: 04/12/18 17:02 [id number] MED-C11) Document 04/12/18 19:30 [id number] (Rec: 04/12/18 23:31 [id number] MED-C13) Document 04/13/18 00:00 [id number] (Rec: 04/13/18 02:15 [id number] ICU-C12) Document 04/13/18 02:14 [id number] (Rec: 04/13/18 02:15 [id number] ICU-C12) Document 04/13/18 06:00 [id number] (Rec: 04/13/18 06:20 [id number] ICU-C25) Document 04/13/18 08:33 [id number] (Rec: 04/13/18 08:33 [id number] ICU-C12) Document 04/13/18 11:54 [id number] (Rec: 04/13/18 11:54 [id number] ICU-M27) Document 04/13/18 14:00 [id number] (Rec: 04/13/18 14:22 [id number] ICU-C12) Labs: Laboratory Results - last 24 hr 04/12/18 04/12/18 04/12/18 06:45 17:17 20:27 WBC RBC Hgb Hct MCV MCH MCHC RDW Plt Count MPV Neut % (Auto) Lymph % (Auto) [place] % (Auto) Eos % (Auto) Baso % (Auto) Absolute Neuts (auto) Absolute Lymphs (auto) Absolute Monos (auto) Absolute Eos (auto) Absolute Basos (auto) Absolute Nucleated RBC Nucleated RBC % Patient Temperature ABG pH ABG pH (Temp Correct) ABG pCO2 ABG pCO2 (Temp Corrct ABG pO2 ABG pO2 (Temp Correct ABG HCO3 ABG O2 Saturation ABG Base Excess Respiration Rate O2 Delivery Device Ventilator Type Vent Mode FiO2 Inspiratory Time PEEP Pressure Support Pressure Control EPAP IPAP BiPAP Sodium Potassium Chloride Carbon Dioxide Anion Gap BUN Creatinine Est GFR ( Amer) Est GFR (Non-Af Amer) BUN/Creatinine Ratio Glucose POC Glucose (mg/dL) 129 H 181 H Calcium Magnesium Total Bilirubin AST ALT Alkaline Phosphatase Troponin I Total Protein Albumin Globulin Albumin/Globulin Ratio Blood Type O Positive Antibody Screen Negative Crossmatch See Detail 04/12/18 04/12/18 04/12/18 23:10 23:10 23:35 WBC 10.6 RBC 2.89 L Hgb 8.9 L Hct 27 L MCV 93 MCH 31 MCHC 33 RDW 19 H Plt Count 200 MPV 6.9 L Neut % (Auto) 78.1 Lymph % (Auto) 11.6 [place] % (Auto) 8.0 Eos % (Auto) 1.6 Baso % (Auto) 0.7 Absolute Neuts (auto) 8.3 H Absolute Lymphs (auto) 1.2 Absolute Monos (auto) 0.8 Absolute Eos (auto) 0.2 Absolute Basos (auto) 0.1 Absolute Nucleated RBC 0 Nucleated RBC % 0 Patient Temperature Not Reportable ABG pH 7.34 L ABG pH (Temp Correct) Not Reportable ABG pCO2 37 ABG pCO2 (Temp Corrct Not Reportable ABG pO2 109 H ABG pO2 (Temp Correct Not Reportable ABG HCO3 20.9 ABG O2 Saturation 99.4 H ABG Base Excess -5.2 L Respiration Rate Not Reportable O2 Delivery Device Trach collar Ventilator Type Not Reportable Vent Mode Not Reportable FiO2 70 Inspiratory Time Not Reportable PEEP Not Reportable Pressure Support Not Reportable Pressure Control Not Reportable EPAP Not Reportable IPAP Not Reportable BiPAP Not Reportable Sodium 138 Potassium 4.1 Chloride 105 Carbon Dioxide 23 Anion Gap 10 BUN 45 H Creatinine 1.98 H Est GFR ( Amer) 38.7 Est GFR (Non-Af Amer) 32.0 BUN/Creatinine Ratio 22.7 H Glucose 194 H POC Glucose (mg/dL) Calcium 7.9 L Magnesium 2.1 Total Bilirubin 0.40 AST 153 H ALT 157 H Alkaline Phosphatase 102 Troponin I 0.02 Total Protein 5.6 L Albumin 3.0 L Globulin 2.6 Albumin/Globulin Ratio 1.2 Blood Type Antibody Screen Crossmatch 04/13/18 04/13/18 07:47 11:40 WBC RBC Hgb Hct MCV MCH MCHC RDW Plt Count MPV Neut % (Auto) Lymph % (Auto) [place] % (Auto) Eos % (Auto) Baso % (Auto) Absolute Neuts (auto) Absolute Lymphs (auto) Absolute Monos (auto) Absolute Eos (auto) Absolute Basos (auto) Absolute Nucleated RBC Nucleated RBC % Patient Temperature ABG pH ABG pH (Temp Correct) ABG pCO2 ABG pCO2 (Temp Corrct ABG pO2 ABG pO2 (Temp Correct ABG HCO3 ABG O2 Saturation ABG Base Excess Respiration Rate O2 Delivery Device Ventilator Type Vent Mode FiO2 Inspiratory Time PEEP Pressure Support Pressure Control EPAP IPAP BiPAP Sodium Potassium Chloride Carbon Dioxide Anion Gap BUN Creatinine Est GFR ( Amer) Est GFR (Non-Af Amer) BUN/Creatinine Ratio Glucose POC Glucose (mg/dL) 248 H 383 H Calcium Magnesium Total Bilirubin AST ALT Alkaline Phosphatase Troponin I Total Protein Albumin Globulin Albumin/Globulin Ratio Blood Type Antibody Screen Crossmatch Nutrition: Soft diet Impression: 87 yo male with 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 Consider increase in lasix BID if hemodynamics tolerate - Imdur - on ASA - on lipitor - on insulin - suspect rib fractures. Due to cardiac arrhythmias will not do off floor rib series at this point. No paradoxical respiratory status appreciated. Started lido patch, on APAP prn, prn morphine Critical Care Time: 65 minutes Prognosis: guarded Dispo: keep in the ICU till definitive tx for arrhythmias is made DVT ppx: SCD; will discuss with cardio about starting a/c for chronic af and DVT ppx
[2018-04-13 17:20] LABS: Anion Gap 9 mmol/L (2-11); BUN/Creatinine Ratio 26.2 (8-20); Blood Urea Nitrogen 49 mg/dL (6-24); CO2 Carbon Dioxide 24 mmol/L (22-32); Calcium 8.4 mg/dL (8.6-10.3); Chloride 104 mmol/L (101-111); EGFR African American 41.3 (>60); EGFR Non-African American 34.2 (>60); Glucose 139 mg/dL (70-100); Potassium 4.3 mmol/L (3.5-5.0); Sodium 137 mmol/L (135-145)
[2018-04-13 17:23] LABS: Troponin I 0.06 ng/mL (<0.04)
[2018-04-13 18:42] LABS: TSH (Thyroid Stimulating Horm) 1.17 mcIU/mL (0.34-5.60)
[2018-04-13 18:47] LABS: Free T4 1.09 ng/dL (0.61-1.12)
[2018-04-13] MEDS ORDERED: Labetalol IV* 5 MG/ML 20 ML VIAL IV PUSH PRN ×2 (20:13→20:25)
[2018-04-13] MEDS ORDERED: Lidocaine Patch REMOVE* 1 NOTE MISC SCH (21:00)
[2018-04-13] MEDS: hydrALAZINE IV* 20 MG/ML VIAL IV SLOW PU PRN (21:18)
[2018-04-13] MEDS: Atorvastatin* 40 MG TAB NG TUBE SCH (21:18)
[2018-04-14] MEDS: metFORMIN* 500 MG TAB PO SCH ×2 (08:11→17:26)
[2018-04-14] MEDS: Isosorbide Mononitrate ER TAB* 30 MG PO SCH (08:11)
[2018-04-14] MEDS: Furosemide TAB* 20 MG PO SCH (08:11)
[2018-04-14] MEDS: Aspirin 81 mg CHEW TAB* 81 MG TAB.CHEW PO SCH (08:11)
[2018-04-14] MEDS: Lactobacillus Acidophilus* 1 TAB PO SCH ×2 (08:11→20:09)
[2018-04-14] MEDS: Lidocaine PATCH 5%* 1 PATCH TRANSDERM SCH (08:12)
[2018-04-14] MEDS: Insulin LISPRO* 1 UNITS UNIT SUBCUT SCH ×4 (08:13→20:09)
[2018-04-14 09:37] LABS: Troponin I 0.04 ng/mL (<0.04)
[2018-04-14] MEDS ORDERED: Regadenoson* 0.4 MG/5 ML SYRINGE ONE (13:19)
[2018-04-14] MEDS: Insulin GLARGINE(*) 1 UNITS UNIT SUBCUT SCH ×2 (15:21→17:26)
--- NOTE | 2018-04-14 16:22 | PN ---
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 Patient was completely alert post-code. He required BVM intermittently. But now in on TM via trach site. He complains of right lower chest pain and difficulty raising his arm. Denies any chest pain, difficulty breathing or other complains Patient denies any new complains. Continues to complain of Right lower chest pain. No overnight events Vital Signs: Temp Pulse Resp BP SpO2 FiO2 98.1 F 62 21 163/113 100 35 04/14/18 08:37 04/14/18 14:36 04/14/18 15:05 04/14/18 15:05 04/14/18 14:36 04/14 15:11 Physical Exam: Gen:NAD, trach collar HEENT:NCAT, neck supple, trach site CDI Lungs:AEBL, no wheezes Cardiac: S1S2 +, RRR Abdomen:SNTND, + BS Extremities:thin, no cyanosis, no edema Neuro:AAO x 3, nonfocal Fluid Balance (Past 24 Hours): I= O= Net Intake & Output 04/12/18 04/13/18 04/14/18 04/15/18 06:59 06:59 06:59 06:59 Intake Total 1420 1260 480 60 Output Total 2150 1275 685 400 Balance -730 -15 -205 -340 Weight 147 lb 4.301 oz Intake: IV Fluids 60 NS 60 Oral 1420 960 480 Packed Cells 300 Output: Urine 2150 1275 660 400 Emesis 25 Other: Estimated Void Small # Bowel Movements 1 Estimated Stool Amount Medium Small # Voids 1 ADLs: Meal Record Start: 03/01/18 13: 47 Freq: 09,13,18 Status: Inactive Protocol: Created 03/01/18 13:47 System (Rec: 03/01/18 13:47 System ICU-C16) Document 03/01/18 18:00 NLO2492 (Rec: 03/01/18 18:11 GUQ1914 ICU-C16) Document 03/02/18 10:00 ONC6901 (Rec: 03/02/18 10:11 YAE0961 ICU-C16) Document 03/02/18 13:00 VCG5995 (Rec: 03/02/18 16:04 GRO9428 ICU-C16) Document 03/02/18 18:00 WAO2957 (Rec: 03/02/18 19:38 IBA7916 ICU-C16) ADLs: Meal Record Start: 03/03/18 08: 01 Freq: 09,13,18 Status: Inactive Protocol: Created 03/03/18 08:01 KZM9480 (Rec: 03/03/18 08:01 CKZ5602 ICU-C25) Document 03/03/18 09:00 FKS4554 (Rec: 03/03/18 10:41 MBP6672 ICU-C15) Document 03/03/18 13:00 JPK1206 (Rec: 03/03/18 14:09 CBW0529 ICU-C15) Document 03/03/18 18:36 NHQ8387 (Rec: 03/03/18 18:37 OPC1924 ICU-C15) Document 03/04/18 09:00 VYA6464 (Rec: 03/04/18 09:48 LFR4187 ICU-C15) Document 03/04/18 13:00 FXX3678 (Rec: 03/04/18 13:33 IIY9868 ICU-C11) Document 03/05/18 10:02 GUF6976 (Rec: 03/05/18 10:03 XNP3238 ICU-M29) Document 03/05/18 14:13 TMI5160 (Rec: 03/05/18 14:13 JDE7312 ICU-C12) Document 03/05/18 18:52 BBU0332 (Rec: 03/05/18 18:52 LMC2976 ICU-C25) Document 03/06/18 09:00 UWZ9876 (Rec: 03/06/18 11:52 NZE1801 ICU-C07) Document 03/06/18 13:00 TGX3308 (Rec: 03/06/18 13:45 CZW3805 ICU-C07) Document 03/07/18 09:00 YGW1340 (Rec: 03/07/18 09:26 EJG8275 ICU-L03) Document 03/07/18 17:50 ZUF2801 (Rec: 03/07/18 17:50 UDT4194 ICU-L03) Document 03/08/18 09:00 ZKI8114 (Rec: 03/08/18 10:02 NSN1633 ICU-C15) Document 03/08/18 13:00 VYB5019 (Rec: 03/08/18 14:32 ILB3548 ICU-C15) Document 03/08/18 18:00 FXC6314 (Rec: 03/08/18 18:14 FGZ3340 ICU-C15) ADLs: Meal Record Start: 03/15/18 16: 35 Freq: T.PRN Status: Active Protocol: Created 03/15/18 16:35 QWJ1441 (Rec: 03/15/18 16:35 YQE4138 ICU-M25) Document 03/15/18 17:51 MYU0503 (Rec: 03/15/18 17:51 TCC1225 ICU-C25) Document 03/16/18 09:00 MDN2648 (Rec: 03/16/18 12:57 YOH8878 ICU-C06) Document 03/16/18 13:00 YXU2807 (Rec: 03/16/18 14:55 XNQ4121 ICU-C06) Document 03/17/18 09:00 UNK1556 (Rec: 03/17/18 10:00 CIJ0545 ICU-C07) Document 03/17/18 13:05 VSR8640 (Rec: 03/17/18 13:44 XVV4662 ICU-C08) Document 04/13/18 09:00 SCF2377 (Rec: 04/13/18 09:12 BKV5482 ICU-C12) Document 04/13/18 13:00 EEO4547 (Rec: 04/13/18 13:30 XHH0129 ICU-C12) Document 04/13/18 18:00 NMN9678 (Rec: 04/13/18 18:20 PAX5683 ICU-C12) ADLs: Meal Record Start: 03/17/18 15: 42 Freq: DAILY@0900,1400,1800 Status: Hold Protocol: Created 03/17/18 15:42 QZF1779 (Rec: 03/17/18 15:42 MHM5137 ICU-C08) Document 03/17/18 18:00 TIP5105 (Rec: 03/17/18 22:06 DTE4298 TELE-C35) Document 03/18/18 09:00 MHP2718 (Rec: 03/18/18 11:38 VXS1414 TELE-C09) Document 03/18/18 14:00 PHX7510 (Rec: 03/18/18 14:43 RMW8922 TELE-C09) Document 03/18/18 18:00 BQJ9299 (Rec: 03/18/18 21:39 PWF7076 TELE-C07) Document 03/19/18 09:00 WCX4348 (Rec: 03/19/18 09:06 QOZ1874 TELE-C05) Document 03/19/18 14:00 ZTK0904 (Rec: 03/19/18 14:50 XJN0439 TELE-C09) Document 03/19/18 18:00 BVC9785 (Rec: 03/19/18 21:28 QWZ0147 TELE-C07) Document 03/20/18 11:06 CVV4035 (Rec: 03/20/18 11:07 FYX9338 TELE-C10) Document 03/20/18 14:21 NAI4594 (Rec: 03/20/18 14:21 MDU7261 TELE-C11) Document 03/20/18 18:00 GHT0064 (Rec: 03/20/18 21:30 ISV3902 TELE-C07) Document 03/21/18 09:00 ULT5346 (Rec: 03/21/18 15:00 ISB3769 TELE-C13) Document 03/21/18 14:00 HBV9353 (Rec: 03/21/18 15:15 MUO7508 TELE-C13) Document 03/21/18 18:00 TMA2298 (Rec: 03/21/18 18:48 VFL4294 TELE-C01) Document 03/22/18 09:00 ITY6275 (Rec: 03/22/18 14:48 QHU4594 TELE-C09) Document 03/22/18 14:00 EON7895 (Rec: 03/22/18 15:07 JYN0170 TELE-C08) Document 03/22/18 18:00 WBP0446 (Rec: 03/22/18 20:00 HOS9639 TELE-C13) Document 03/23/18 09:00 HWG4548 (Rec: 03/23/18 14:26 WJP0198 TELE-C10) Document 03/23/18 14:00 JRX7944 (Rec: 03/23/18 14:41 JAX3391 TELE-C10) Document 03/23/18 17:53 DAV1128 (Rec: 03/23/18 17:53 MSW3915 TELE-C05) Document 03/24/18 09:00 BYB7170 (Rec: 03/24/18 15:26 VMG6366 TELE-C05) Document 03/24/18 14:00 YYS7644 (Rec: 03/24/18 15:27 ITF0294 TELE-C05) Document 03/24/18 18:00 WID2552 (Rec: 03/24/18 18:35 MKZ8369 TELE-C01) Document 03/25/18 09:00 JHJ2862 (Rec: 03/25/18 15:09 AGD7868 TELE-C09) Document 03/25/18 14:00 XIB8189 (Rec: 03/25/18 15:10 CGF1803 TELE-C09) Document 03/25/18 18:00 DHT9240 (Rec: 03/25/18 18:49 DYT4301 TELE-C07) Document 03/26/18 08:57 WMP5317 (Rec: 03/26/18 08:58 YHV1759 TELE-M11) Document 03/26/18 14:00 EWL9640 (Rec: 03/26/18 14:04 RDB0290 TELE-C09) Document 03/26/18 18:00 FQJ0645 (Rec: 03/26/18 18:29 GSW0196 TELE-C07) Document 03/27/18 09:00 NHF8459 (Rec: 03/27/18 12:04 RIF2737 TELE-C07) Document 03/27/18 14:00 EZQ3167 (Rec: 03/27/18 14:36 YIZ8504 TELE-C13) Document 03/27/18 21:04 EBK9517 (Rec: 03/27/18 21:04 IAQ6849 TELE-C10) Document 03/28/18 09:00 AIO1661 (Rec: 03/28/18 11:20 QII3495 TELE-C13) Document 03/28/18 14:00 HOP6864 (Rec: 03/28/18 14:05 DKV1699 TELE-C13) Document 03/28/18 20:37 IKM5983 (Rec: 03/28/18 20:37 MQT3183 TELE-C05) Document 03/29/18 08:00 PYV2491 (Rec: 03/29/18 13:24 TYI2102 TELE-C07) Document 03/29/18 09:00 ESE6545 (Rec: 03/29/18 15:27 WTC1771 TELE-C07) Document 03/29/18 14:00 AGU0900 (Rec: 03/29/18 15:30 SIU3367 TELE-C07) Document 03/29/18 18:00 FDT6709 (Rec: 03/29/18 21:26 WMV7059 TELE-C03) Document 03/30/18 09:00 DUM1868 (Rec: 03/30/18 10:06 KLF1974 TELE-C13) Document 03/30/18 14:00 REF9312 (Rec: 03/30/18 14:02 VJC0227 TELE-C05) Document 03/30/18 21:26 CXI5855 (Rec: 03/30/18 21:26 JFN0756 TELE-C13) Document 03/31/18 09:00 XYR1855 (Rec: 03/31/18 10:25 JRB1480 TELE-C05) Document 03/31/18 14:00 CCS3293 (Rec: 03/31/18 14:20 ORT3256 TELE-C13) Document 03/31/18 18:00 UNH0931 (Rec: 03/31/18 18:37 AJH8001 TELE-C01) Document 04/01/18 09:00 FCN1132 (Rec: 04/01/18 11:29 XWX4786 TELE-C09) Document 04/01/18 14:00 YMN5261 (Rec: 04/01/18 14:30 ELU4495 TELE-C09) Document 04/01/18 18:00 PKK9544 (Rec: 04/01/18 19:55 CMW7009 TELE-C05) Document 04/02/18 09:00 IUT4388 (Rec: 04/02/18 11:09 SGD3137 TELE-C10) Document 04/02/18 14:00 XJK4500 (Rec: 04/02/18 14:47 JLD2806 TELE-C10) Document 04/02/18 22:23 WEN8367 (Rec: 04/02/18 22:24 HTA6870 TELE-C09) Document 04/03/18 09:00 YBY9262 (Rec: 04/03/18 10:17 HMY6651 TELE-C09) Document 04/03/18 14:00 CCM0789 (Rec: 04/03/18 15:14 TFJ3819 TELE-C09) Document 04/03/18 18:00 RKF9346 (Rec: 04/03/18 20:46 YHB9805 TELE-C01) Document 04/04/18 09:00 DEE4055 (Rec: 04/04/18 09:59 ELH9786 TELE-C10) Document 04/04/18 14:00 LBT1300 (Rec: 04/04/18 14:17 HGM7422 TELE-C10) Document 04/04/18 21:05 KVY0499 (Rec: 04/04/18 21:05 GKS3004 TELE-C08) Document 04/05/18 09:00 DSY4973 (Rec: 04/05/18 14:39 WFR3148 TELE-C05) Document 04/05/18 14:00 HRT0120 (Rec: 04/05/18 14:45 AZZ6609 TELE-C05) Document 04/06/18 09:00 ELC7985 (Rec: 04/06/18 18:25 RDW6297 MED-C09) Document 04/06/18 14:00 ZOM2168 (Rec: 04/06/18 18:25 XFP3418 MED-C09) Document 04/06/18 18:00 FBO5227 (Rec: 04/06/18 19:14 ALN4299 MED-C09) Document 04/07/18 09:00 MAZ9222 (Rec: 04/07/18 12:40 FSU8993 MED-C04) Document 04/07/18 14:00 FGE5041 (Rec: 04/07/18 16:07 DCN0596 MED-C13) Document 04/07/18 18:00 KIL6827 (Rec: 04/07/18 18:35 DNM3144 MED-C14) Document 04/08/18 09:00 HWL0476 (Rec: 04/08/18 09:54 EDP2133 MED-C09) Document 04/08/18 14:00 FQO1179 (Rec: 04/08/18 18:54 IJT8150 MED-C11) Document 04/08/18 18:00 VCZ9143 (Rec: 04/08/18 18:54 URD5255 MED-C11) Document 04/09/18 09:00 TNW3703 (Rec: 04/09/18 10:08 UGQ4334 MED-C11) Document 04/09/18 13:53 CHG3722 (Rec: 04/09/18 13:53 UVF9630 MED-C11) Document 04/09/18 18:00 IOH9192 (Rec: 04/09/18 18:19 WZI3392 MED-C09) Document 04/10/18 09:00 SHY3950 (Rec: 04/10/18 10:08 POY6785 MED-C09) Document 04/10/18 13:52 VAY8755 (Rec: 04/10/18 13:53 PVY8846 MED-C09) Document 04/10/18 18:00 ZJB6251 (Rec: 04/10/18 22:45 AMB1884 MED-C13) Document 04/11/18 09:00 QMC0527 (Rec: 04/11/18 10:16 YMY2231 MED-C09) Document 04/11/18 18:22 AEB3904 (Rec: 04/11/18 18:23 SEO0850 MED-M20) Document 04/12/18 09:00 GBC0536 (Rec: 04/12/18 09:54 XDG2412 MED-C11) Document 04/12/18 14:00 KWI2855 (Rec: 04/12/18 17:02 JZR2189 MED-C11) Document 04/12/18 18:00 AWC7753 (Rec: 04/12/18 20:08 EBZ7862 MED-C11) Intake and Output Start: 03/01/18 13: 47 Freq: 06,14,2200 Status: Inactive Protocol: Created 03/01/18 13:47 System (Rec: 03/01/18 13:47 System ICU-C16) Document 03/01/18 18:00 BTH2577 (Rec: 03/01/18 18:10 OXN4894 ICU-C16) Document 03/01/18 20:00 HNT8908 (Rec: 03/01/18 20:11 TCY5394 ICU-C16) Document 03/01/18 21:00 TJH8553 (Rec: 03/01/18 22:03 ZST6846 ICU-C16) Document 03/02/18 01:00 OFQ6629 (Rec: 03/02/18 01:39 KZT2432 ICU-C16) Document 03/02/18 04:00 QDU0635 (Rec: 03/02/18 04:15 BYT3610 ICU-C16) Document 03/02/18 04:00 CUJ2711 (Rec: 03/02/18 04:12 SPM6234 ICU-M32) Document 03/02/18 05:00 UKG9924 (Rec: 03/02/18 05:33 GAA1791 ICU-M32) Document 03/02/18 06:00 SGT2819 (Rec: 03/02/18 06:25 HAB6666 ICU-C16) Document 03/02/18 07:27 LEA4202 (Rec: 03/02/18 07:27 JSR9681 ICU-C16) Document 03/02/18 10:10 IEG6070 (Rec: 03/02/18 10:10 DPJ3839 ICU-C16) Document 03/02/18 14:17 EGV6858 (Rec: 03/02/18 14:17 RIF9208 ICU-C16) Document 03/02/18 15:24 JQZ8130 (Rec: 03/02/18 15:24 YTB7765 ICU-C16) Document 03/02/18 18:30 BNM2869 (Rec: 03/02/18 19:28 GCR1552 ICU-C16) Document 03/02/18 19:22 RCB7015 (Rec: 03/02/18 19:22 LRA7807 ICU-M32) Document 03/02/18 21:00 DIO8909 (Rec: 03/02/18 21:43 WTP0025 ICU-C15) Document 03/02/18 23:24 CSC4641 (Rec: 03/02/18 23:24 FTD9848 ICU-M32) Document 03/03/18 01:44 IZD0762 (Rec: 03/03/18 01:44 MQG5689 ICU-C15) Document 03/03/18 02:32 RZZ0568 (Rec: 03/03/18 02:32 OZD4316 ICU-C15) Document 03/03/18 05:11 HSF0379 (Rec: 03/03/18 05:11 GLF7758 ICU-C15) Document 03/03/18 06:38 MVN5245 (Rec: 03/03/18 06:38 UNO8604 ICU-C15) Intake and Output Start: 03/03/18 08: 01 Freq: DAILY@0600,1400,2200 Status: Complete Protocol: Created 03/03/18 08:01 PLV1738 (Rec: 03/03/18 08:01 KTA7052 ICU-C25) Document 03/03/18 13:43 MWQ0411 (Rec: 03/03/18 13:43 ALD0106 ICU-C20) Document 03/03/18 20:25 PIQ3305 (Rec: 03/03/18 20:25 GZE3764 ICU-L03) Document 03/03/18 23:42 VJK4301 (Rec: 03/03/18 23:42 CQK9125 ICU-L03) Document 03/04/18 03:00 RZH5146 (Rec: 03/04/18 04:24 BOC9077 ICU-L03) Document 03/04/18 05:02 UYU9815 (Rec: 03/04/18 05:02 CPK3664 ICU-L03) Document 03/04/18 13:23 QHQ4728 (Rec: 03/04/18 13:23 WID5717 ICU-C15) Document 03/04/18 14:00 YPM5452 (Rec: 03/04/18 14:03 ZLC5536 ICU-C15) Document 03/04/18 20:51 TEE2679 (Rec: 03/04/18 20:51 XZV7787 ICU-C15) Document 03/04/18 21:53 SKM7875 (Rec: 03/04/18 21:53 MWH0511 ICU-C15) Document 03/04/18 22:52 PSM0844 (Rec: 03/04/18 22:52 BOO4866 ICU-C15) Document 03/05/18 01:58 IDI1999 (Rec: 03/05/18 01:58 VFX9659 ICU-C15) Document 03/05/18 04:00 FQK6173 (Rec: 03/05/18 05:37 PHB5058 ICU-C15) Document 03/05/18 05:55 ZPL8925 (Rec: 03/05/18 05:55 NPW0818 ICU-C15) Document 03/05/18 08:11 IOE7555 (Rec: 03/05/18 08:11 YKR1952 ICU-M29) Document 03/05/18 10:04 EUP0110 (Rec: 03/05/18 10:04 JCD7284 ICU-M29) Document 03/05/18 14:13 BZY8436 (Rec: 03/05/18 14:13 OSL0872 ICU-C12) Document 03/05/18 16:15 MJL0868 (Rec: 03/05/18 16:15 VHO9975 ICU-C12) Document 03/05/18 22:00 UPP5758 (Rec: 03/06/18 01:57 OMM3357 ICU-C25) Document 03/06/18 06:00 ANP7489 (Rec: 03/06/18 06:21 EJO9999 ICU-C07) Document 03/06/18 08:51 EMB5865 (Rec: 03/06/18 08:51 VNG3011 ICU-C07) Document 03/06/18 14:00 COY9330 (Rec: 03/06/18 14:02 DNT1454 ICU-C07) Document 03/06/18 22:00 VKX9685 (Rec: 03/07/18 00:15 FLY9966 ICU-C25) Document 03/07/18 06:00 TSO7460 (Rec: 03/07/18 06:53 VYV6370 ICU-C25) Document 03/07/18 08:46 ZDG4544 (Rec: 03/07/18 08:47 HJI4988 ICU-L03) Document 03/07/18 17:02 ZTA2382 (Rec: 03/07/18 17:02 VUV9143 ICU-L03) Document 03/07/18 17:15 SML5423 (Rec: 03/07/18 17:16 TNP7581 ICU-L03) Document 03/07/18 22:00 NXP2884 (Rec: 03/08/18 01:41 AMB0661 ICU-C15) Document 03/08/18 06:00 TKN5652 (Rec: 03/08/18 07:05 KPH6593 ICU-C15) Document 03/08/18 08:16 IJD0088 (Rec: 03/08/18 08:16 IDO9566 ICU-C15) Document 03/08/18 09:00 LGG7396 (Rec: 03/08/18 10:00 YJA1494 ICU-C15) Document 03/08/18 12:24 VPA2247 (Rec: 03/08/18 12:24 SMA8134 ICU-C15) Document 03/08/18 14:00 PRL4516 (Rec: 03/08/18 14:35 FCO5236 ICU-C15) Document 03/08/18 14:00 GDP5930 (Rec: 03/08/18 18:13 TLJ9501 ICU-C15) Document 03/08/18 18:00 AVC6564 (Rec: 03/08/18 18:14 WLS8638 ICU-C15) Document 03/08/18 22:00 HMQ0490 (Rec: 03/09/18 00:45 TOS8026 ICU-C15) Document 03/09/18 04:34 POK7655 (Rec: 03/09/18 04:36 PLE6588 ICU-M29) Document 03/09/18 06:00 CXF5594 (Rec: 03/09/18 06:02 HLP4532 ICU-C15) Document 03/09/18 14:20 VJS8280 (Rec: 03/09/18 14:23 MWM1667 ICU-L03) Document 03/09/18 22:00 NVG1720 (Rec: 03/09/18 22:22 QEV7131 ICU-C15) Document 03/10/18 04:43 CSN5152 (Rec: 03/10/18 04:43 COU5990 ICU-C15) Document 03/10/18 06:04 PSW5335 (Rec: 03/10/18 06:04 AKD8872 ICU-C14) Document 03/10/18 14:10 FLC8822 (Rec: 03/10/18 14:13 YNO6709 ICU-C15) Document 03/10/18 17:25 DZI4339 (Rec: 03/10/18 17:25 QDM9489 [facility]-M18) Document 03/10/18 18:58 HHG3115 (Rec: 03/10/18 18:59 FBV5896 SSU-C11) Document 03/10/18 22:24 KTB1636 (Rec: 03/10/18 22:24 OJJ7851 SSU-M17) Document 03/10/18 22:34 VGO6529 (Rec: 03/10/18 22:35 DRB9997 SSU-M07) Document 03/11/18 00:05 JLD1869 (Rec: 03/11/18 03:20 EZG1780 SSU-C12) Document 03/11/18 02:49 XEN2249 (Rec: 03/11/18 02:50 BAQ4358 SSU-M17) Document 03/11/18 06:45 OPU7862 (Rec: 03/11/18 06:45 LQY7055 SSU-M17) Document 03/11/18 14:50 GYN0007 (Rec: 03/11/18 14:51 DPB3701 SSU-C06) Document 03/11/18 16:26 NSD5967 (Rec: 03/11/18 16:27 YAS9459 SSU-M17) Document 03/11/18 22:27 WZF0648 (Rec: 03/11/18 22:28 WWU0834 SSU-M17) Document 03/11/18 23:40 TFH4794 (Rec: 03/11/18 23:40 BOC3432 SSU-M17) Document 03/12/18 03:36 HII3941 (Rec: 03/12/18 03:36 CLL7506 S[facility]-M17) Document 03/12/18 05:00 ZOK4006 (Rec: 03/12/18 08:34 ZXF8927 SSU-M07) Document 03/12/18 06:06 IXJ5578 (Rec: 03/12/18 06:06 SIP3334 SSU-M17) Document 03/12/18 14:21 MFD5895 (Rec: 03/12/18 14:22 ASM5426 SSU-C06) Document 03/12/18 21:50 EVQ4385 (Rec: 03/12/18 21:51 LZA2951 SSU-L03) Document 03/13/18 00:04 IGW5160 (Rec: 03/13/18 00:04 DHO0861 SSU-M07) Document 03/13/18 03:43 YNI5012 (Rec: 03/13/18 03:43 VZC9450 SSU-M18) Document 03/13/18 04:53 YUV0146 (Rec: 03/13/18 04:53 HWD6994 SSU-M07) Document 03/13/18 14:00 VLD7690 (Rec: 03/13/18 14:42 DXM8384 SSU-C01) Document 03/13/18 22:27 PZN4627 (Rec: 03/13/18 22:27 BIU8103 SSU-C19) Document 03/14/18 05:07 MEL6699 (Rec: 03/14/18 05:07 NVI2920 SSU-M06) Document 03/14/18 11:00 SZD8245 (Rec: 03/14/18 12:21 HLK8386 SSU-C19) Document 03/14/18 14:00 VNP5000 (Rec: 03/14/18 14:16 DEY5773 SSU-C03) Document 03/14/18 19:45 PPN2151 (Rec: 03/15/18 05:45 WFF4111 SSU-C09) Document 03/14/18 22:09 TPO5730 (Rec: 03/14/18 22:11 UNT7625 SSU-M17) Document 03/14/18 22:45 EWG8283 (Rec: 03/15/18 05:45 NSO6831 SSU-C09) Document 03/14/18 23:45 HRB2375 (Rec: 03/15/18 05:44 WXP5740 SSU-C09) Document 03/15/18 00:30 WUT8142 (Rec: 03/15/18 05:44 MJV7223 SSU-C09) Document 03/15/18 01:30 DMU7042 (Rec: 03/15/18 05:44 URQ6341 SSU-C09) Document 03/15/18 02:45 FXV6730 (Rec: 03/15/18 05:43 NIB5128 SSU-C09) Document 03/15/18 05:54 HIX5104 (Rec: 03/15/18 05:54 JRD0502 SSU-L02) Document 03/15/18 13:33 GBC0192 (Rec: 03/15/18 13:33 CTM2519 SSU-C03) Intake and Output Start: 03/10/18 18: 58 Freq: Status: Complete Protocol: Created 03/10/18 18:58 JHT4766 (Rec: 03/10/18 18:58 RQI5040 SSU-C11) Document 03/11/18 08:42 GPS6661 (Rec: 03/11/18 08:42 VHL2094 SSU-C05) Document 03/12/18 03:36 TYC3437 (Rec: 03/12/18 03:36 LRV8527 SSU-M17) Document 03/12/18 06:12 SEN1179 (Rec: 03/12/18 06:12 RIA3741 SSU-M17) Document 03/14/18 05:45 RNS4816 (Rec: 03/14/18 05:45 TYC1613 SSU-M17) Document 03/16/18 15:31 EOJ3933 (Rec: 03/16/18 15:31 EBR1784 ICU-M25) Document 03/19/18 05:09 OXP7735 (Rec: 03/19/18 05:10 MNE9336 TELE-M01) Document 03/20/18 07:30 TNN1143 (Rec: 03/20/18 09:53 NJS5860 TELE-C01) Document 03/20/18 09:00 JMS0248 (Rec: 03/20/18 09:53 UBI9305 TELE-C01) Intake and Output Start: 03/15/18 16: 35 Freq: 06,14,2200 Status: Complete Protocol: Created 03/15/18 16:35 KAW9121 (Rec: 03/15/18 16:35 INJ9073 ICU-M25) Document 03/15/18 22:00 TSV6134 (Rec: 03/15/18 22:57 MMS6026 ICU-C06) Document 03/15/18 23:30 RYO6752 (Rec: 03/16/18 00:40 TJI9744 ICU-C06) Document 03/16/18 06:39 DVW4571 (Rec: 03/16/18 06:40 BRL3335 ICU-M25) Document 03/16/18 13:00 DDX9874 (Rec: 03/16/18 14:50 HEG5196 ICU-C06) Document 03/16/18 14:00 UNJ6907 (Rec: 03/16/18 14:50 ZTR0487 ICU-C06) Document 03/16/18 14:50 HRX4193 (Rec: 03/16/18 14:50 UIR2454 ICU-C06) Document 03/16/18 18:46 TGG1690 (Rec: 03/16/18 18:46 MTS3609 ICU-M25) Document 03/16/18 23:58 UIO1771 (Rec: 03/16/18 23:58 PYN1282 ICU-M25) Document 03/17/18 06:00 HTG0981 (Rec: 03/17/18 06:51 RGK5490 ICU-C07) Document 03/17/18 14:00 BSP2428 (Rec: 03/17/18 15:34 ODV7363 ICU-C18) Intake and Output Start: 03/17/18 15: 42 Freq: DAILY@0600,1400,2200 Status: Active Protocol: Created 03/17/18 15:42 XJB3397 (Rec: 03/17/18 15:42 IIA1171 ICU-C08) Document 03/17/18 22:00 TLA0841 (Rec: 03/17/18 22:08 WME2035 TELE-C35) Document 03/18/18 06:00 KLM5593 (Rec: 03/18/18 06:34 MKP8404 TELE-C34) Document 03/18/18 14:00 ILG9018 (Rec: 03/18/18 14:43 AUY5847 TELE-C09) Document 03/18/18 21:40 QZU8454 (Rec: 03/18/18 21:40 JIQ8631 TELE-C07) Document 03/19/18 01:30 KVE0895 (Rec: 03/19/18 01:30 RRV1878 TELE-M01) Document 03/19/18 03:50 WGD2545 (Rec: 03/19/18 04:08 MVB4706 TELE-M01) Document 03/19/18 04:12 WCW1171 (Rec: 03/19/18 04:12 RCZ2274 TELE-M01) Document 03/19/18 06:18 VSM7131 (Rec: 03/19/18 06:18 VNB5908 TELE-M01) Document 03/19/18 12:00 JEI0997 (Rec: 03/19/18 14:00 GCO6296 TELE-C10) Document 03/19/18 14:00 SLZ9674 (Rec: 03/19/18 14:50 YID2494 TELE-C09) Document 03/19/18 21:29 RZC8905 (Rec: 03/19/18 21:30 JQM5632 TELE-C07) Document 03/20/18 04:48 EIK2721 (Rec: 03/20/18 04:48 RRW6838 HOSP-C11) Document 03/20/18 05:09 SEZ7703 (Rec: 03/20/18 05:09 ZMZ7780 HOSP-C11) Document 03/20/18 14:00 WUD9413 (Rec: 03/20/18 14:31 JVJ1756 TELE-C09) Document 03/20/18 21:30 VMQ7920 (Rec: 03/20/18 21:31 HSG3807 TELE-C07) Document 03/21/18 05:33 TUS6359 (Rec: 03/21/18 05:34 OBF8205 TELE-C09) Document 03/21/18 14:00 MUW2736 (Rec: 03/21/18 15:15 JWA2064 TELE-C13) Document 03/21/18 18:49 XDR9062 (Rec: 03/21/18 18:50 XOH5108 TELE-C01) Document 03/21/18 22:00 ZAW8843 (Rec: 03/21/18 23:14 ADB3666 TELE-M12) Document 03/22/18 06:00 APW0007 (Rec: 03/22/18 07:32 IPF4598 TELE-C01) Document 03/22/18 14:00 NYL3676 (Rec: 03/22/18 15:07 ERV6790 TELE-C08) Document 03/22/18 22:00 JIH2829 (Rec: 03/22/18 22:32 CEC4675 TELE-C13) Document 03/23/18 06:00 TWE7291 (Rec: 03/23/18 06:42 IGF0727 TELE-C34) Document 03/23/18 14:00 YLP6950 (Rec: 03/23/18 14:41 XNN1389 TELE-C10) Document 03/23/18 22:00 AOO2402 (Rec: 03/23/18 22:33 YTJ2324 TELE-C01) Document 03/24/18 06:00 TMO8365 (Rec: 03/24/18 06:47 UTQ9534 TELE-C34) Document 03/24/18 14:00 UOJ4357 (Rec: 03/24/18 15:27 JYS7073 TELE-C05) Document 03/24/18 22:00 BTC2897 (Rec: 03/24/18 22:28 QUL4070 TELE-C01) Document 03/25/18 06:00 OQQ4288 (Rec: 03/25/18 06:27 VOI0766 TELE-C34) Document 03/25/18 14:00 PZH9363 (Rec: 03/25/18 15:11 MQE2376 TELE-C09) Document 03/25/18 22:00 NZL9488 (Rec: 03/25/18 22:24 MSQ9169 TELE-C07) Document 03/26/18 06:00 QIQ3273 (Rec: 03/26/18 06:49 JAT5086 TELE-C32) Document 03/26/18 14:00 TLD0703 (Rec: 03/26/18 14:04 FLQ0694 TELE-C09) Document 03/26/18 21:41 AIW9052 (Rec: 03/26/18 21:41 OUB8691 TELE-C09) Document 03/27/18 06:00 EOB4121 (Rec: 03/27/18 06:23 AHM0394 TELE-C32) Document 03/27/18 14:00 AHT9898 (Rec: 03/27/18 14:36 AID8772 TELE-C13) Document 03/27/18 21:55 BZZ0622 (Rec: 03/27/18 21:57 NAD0394 TELE-C10) Document 03/28/18 06:00 JDZ2252 (Rec: 03/28/18 06:28 BIP7406 TELE-C34) Document 03/28/18 14:00 IAI8434 (Rec: 03/28/18 14:05 UTS0148 TELE-C13) Document 03/28/18 21:47 KMA6640 (Rec: 03/28/18 21:50 GDL3075 TELE-C05) Document 03/29/18 06:00 YUX8191 (Rec: 03/29/18 06:51 IBL3936 TELE-C32) Document 03/29/18 14:00 HSY8104 (Rec: 03/29/18 14:58 BIZ5256 TELE-C13) Document 03/29/18 21:26 ACU8209 (Rec: 03/29/18 21:27 XMV8579 TELE-C03) Document 03/30/18 06:00 JAT4442 (Rec: 03/30/18 06:32 DKM0780 TELE-C34) Document 03/30/18 14:00 DDJ4201 (Rec: 03/30/18 14:51 TWV6007 TELE-C13) Document 03/30/18 21:47 QNV9497 (Rec: 03/30/18 21:48 AEZ1637 TELE-C13) Document 03/31/18 06:00 DCH7776 (Rec: 03/31/18 06:50 THR7550 TELE-C34) Document 03/31/18 14:00 CPA3904 (Rec: 03/31/18 14:42 FQY9202 TELE-C05) Document 03/31/18 22:00 MLG8988 (Rec: 03/31/18 22:14 VIB8847 TELE-C07) Document 04/01/18 06:00 PAN8363 (Rec: 04/01/18 06:52 PRY3320 TELE-C34) Document 04/01/18 13:28 YOI0496 (Rec: 04/01/18 13:28 TXR9790 TELE-C05) Document 04/01/18 19:47 CBH4373 (Rec: 04/01/18 19:47 QOU4803 TELE-C01) Document 04/01/18 22:00 OQX5794 (Rec: 04/01/18 22:58 HNK6760 TELE-C05) Document 04/02/18 06:00 BBZ2472 (Rec: 04/02/18 06:31 ZGV7765 TELE-C34) Document 04/02/18 12:36 TEW7324 (Rec: 04/02/18 12:36 SZO8420 TELE-C05) Document 04/02/18 22:24 MKP2505 (Rec: 04/02/18 22:25 NIY3454 TELE-C09) Document 04/03/18 06:00 NUR3166 (Rec: 04/03/18 06:15 XXC5081 TELE-C34) Document 04/03/18 12:22 HDA6215 (Rec: 04/03/18 12:22 JOA7689 TELE-C05) Document 04/03/18 21:55 BCZ7652 (Rec: 04/03/18 21:55 DIL9879 TELE-C01) Document 04/04/18 06:00 KUN7377 (Rec: 04/04/18 07:43 XIV2328 TELE-C01) Document 04/04/18 14:00 ZOW1667 (Rec: 04/04/18 14:17 MQM9215 TELE-C10) Document 04/04/18 22:03 RRT8270 (Rec: 04/04/18 22:05 EYO0867 TELE-C08) Document 04/05/18 05:14 WRA5789 (Rec: 04/05/18 05:15 KTW2210 TELE-C10) Document 04/05/18 14:00 GOG6211 (Rec: 04/05/18 14:45 GUW3382 TELE-C05) Document 04/05/18 21:48 LKL6063 (Rec: 04/05/18 21:49 JXR9759 MED-C02) Document 04/06/18 06:00 KKV5263 (Rec: 04/06/18 07:12 XGQ5785 MED-C11) Document 04/06/18 14:00 QLC5403 (Rec: 04/06/18 18:25 GDE8923 MED-C09) Document 04/06/18 20:44 XWQ5961 (Rec: 04/07/18 20:44 CKY4461 MED-M04) Document 04/06/18 21:12 GFS8373 (Rec: 04/06/18 21:12 XQL9387 MED-C15) Document 04/07/18 05:18 CEU9090 (Rec: 04/07/18 05:19 PSM7842 MED-C15) Document 04/07/18 14:00 UCE3289 (Rec: 04/07/18 16:07 OGP1577 MED-C13) Document 04/07/18 20:45 DZL7065 (Rec: 04/07/18 20:45 OWH3948 MED-M04) Document 04/07/18 22:00 NLY7556 (Rec: 04/07/18 22:46 YDI0003 MED-C15) Document 04/08/18 05:30 GOE6475 (Rec: 04/08/18 05:30 YTM1574 MED-M04) Document 04/08/18 05:46 HNG9008 (Rec: 04/08/18 05:47 HXD4531 MED-C15) Document 04/08/18 08:27 EXG7760 (Rec: 04/08/18 08:28 FKM2145 MED-C09) Document 04/08/18 14:00 DOJ2314 (Rec: 04/08/18 18:54 GTH0741 MED-C11) Document 04/08/18 22:00 TCE1696 (Rec: 04/08/18 22:29 UZJ6597 MED-C02) Document 04/09/18 05:59 XNC2966 (Rec: 04/09/18 06:01 LJD5510 MED-M11) Document 04/09/18 12:38 TFT3182 (Rec: 04/09/18 12:38 XIO3017 MED-C11) Document 04/09/18 14:00 AHN3343 (Rec: 04/09/18 14:12 [id number] MED-C11) Document 04/09/18 21:23 [id number] (Rec: 04/09/18 21:24 [id number] MED-C09) Document 04/10/18 04:56 [id number] (Rec: 04/10/18 04:57 [id number] MED-C09) Document 04/10/18 14:00 [id number] (Rec: 04/10/18 15:26 [id number] MED-C09) Document 04/10/18 22:00 [id number] (Rec: 04/10/18 22:48 [id number] MED-C13) Document 04/11/18 05:07 [id number] (Rec: 04/11/18 05:07 [id number] MED-C09) Document 04/11/18 06:06 [id number] (Rec: 04/11/18 06:06 [id number] MED-M18) Document 04/11/18 18:22 [id number] (Rec: 04/11/18 18:23 [id number] MED-M20) Document 04/11/18 22:00 [id number] (Rec: 04/11/18 22:26 [id number] MED-C15) Document 04/12/18 06:00 [id number] (Rec: 04/12/18 07:03 [id number] MED-C11) Document 04/12/18 14:00 [id number] (Rec: 04/12/18 17:02 [id number] MED-C11) Document 04/12/18 19:30 IUB2164 (Rec: 04/12/18 23:31 [id number] MED-C13) Document 04/13/18 00:00 [id number] (Rec: 04/13/18 02:15 [id number] ICU-C12) Document 04/13/18 02:14 VVQ7210 (Rec: 04/13/18 02:15 [id number] ICU-C12) Document 04/13/18 06:00 [id number] (Rec: 04/13/18 06:20 [id number] ICU-C25) Document 04/13/18 08:33 ZVS8212 (Rec: 04/13/18 08:33 [id number] ICU-C12) Document 04/13/18 11:54 [id number] (Rec: 04/13/18 11:54 [id number] ICU-M27) Document 04/13/18 14:00 [id number] (Rec: 04/13/18 14:22 XAT1719 ICU-C12) Document 04/13/18 16:46 FYG8101 (Rec: 04/13/18 16:46 [id number] ICU-C12) Document 04/13/18 22:00 JVB1481 (Rec: 04/13/18 22:30 [id number] ICU-L03) Document 04/14/18 14:00 [id number] (Rec: 04/14/18 15:07 [id number] ICU-C25) Labs: Laboratory Results - last 24 hr 04/13/18 04/13/18 04/13/18 16:42 16:42 20:58 Sodium 137 Potassium 4.3 Chloride 104 Carbon Dioxide 24 Anion Gap 9 BUN 49 H Creatinine 1.87 H Est GFR ( Amer) 41.3 Est GFR (Non-Af Amer) 34.2 BUN/Creatinine Ratio 26.2 H Glucose 139 H POC Glucose (mg/dL) 150 H Calcium 8.4 L Magnesium 2.0 Troponin I 0.06 H* B-Natriuretic Peptide 1462 H TSH 1.17 Free T4 1.09 04/14/18 04/14/18 04/14/18 08:11 09:00 12:30 Sodium Potassium Chloride Carbon Dioxide Anion Gap BUN Creatinine Est GFR ( Amer) Est GFR (Non-Af Amer) BUN/Creatinine Ratio Glucose POC Glucose (mg/dL) 149 H 111 H Calcium Magnesium Troponin I 0.04 H* B-Natriuretic Peptide TSH Free T4 Studies: EKG INTERPRETATION ECG Report Patient Name NAVI MENJIVAR Birthdate 1930 Sex M Order Number [id number] Date of ECG 04/14/2018 14:37:35 Interpretation Sinus bradycardia.rate< 60 Atrial premature complexes.SV complexes w/ short R-R intvls Prolonged AK interval.AK >220, V-rate 50- 90 Repol abnrm suggests ischemia, anterolateral.ST dep, T neg, I aVL V2-V6 Baseline wander in lead(s) II,V4,V5,V6 - ABNORMAL ECG - ECG NEEDS E-SIGNING Patient Name: NAVI MENJIVAR Medical Record#: [id number] Ordering Physician: [facility]es[facility]al [id number] : 1930 Age: 87 Sex: M Location: INTENSIVE CARE UNIT Exam Date: 04/14/18 ADM Status: ADM IN Order Information: NM MYOCARDIAL MULTI RESTING Accession Number: [id number] CPT: 67765 Indication: Coronary artery disease. Myocardial perfusion scan was performed utilizing 1 day protocol. Rest myocardial perfusion was performed after intravenous injection of 10.4 mCi of technetium 99 and tetrofosmin. Pharmacological stress was applied and 24.9 mCi of technetium 99 and tetrofosmin was injected. There is homogeneous distribution of the radiotracer. Ventriculomegaly is noted. There may be some apical thinning noted. No evidence of fixed or reversible perfusion defect is identified. The ejection fraction at stress is 55%. Evaluation of wall motion demonstrates septal hypokinesis. IMPRESSION: Apical thinning with ventriculomegaly. Ejection fraction of 55% with septal hypokinesis. ASSESSMENT: Low risk Based on imaging criteria from ACC/AHA 2002 Guideline Update for the Management of Patients With Chronic Stable Angina Table 23. Noninvasive Risk Stratification. Reference. <Electronically signed by Tyra Soto MD in OV> 04/14/18 154 Dictated By: Tyra Soto MD Dictated Date/Time: 04/14/18 154 Transcribed Date/Time: 04/14/18 154 Copy to: CC:Maci WHITTENP; Hayley Joseph DO; Ivett Jerry MD; Nam Cabrera MD; Roopa Gonzalez MD; Hesham Leal MD; Philip Chaudhari MD; Chato Stubbs MD; Elizabeth Cannon MD Imaging - [facility] - [facility] [address] [place] [address] This report is only to be considered final once signed by the Provider(s) as displayed in the "<Electronically Signed by >" field (s). Absence of a signature indicates the report is in a draft status and still needs to be finalized. In the event this document was created by someone other than the signing Provider, the individual initiating the document will be listed in the "Entered by:" or "Dictated by:" murray. 1 of 2 Patient Name: NAVI MENJIVAR Medical Record#: [id number] Ordering Physician: Jung Lebron MD Acct.#: [id number] : 1930 Age: 87 Sex: M Location: INTENSIVE CARE UNIT Exam Date: 04/13/18 1616 ADM Status: ADM IN Order Information: VL LOWER EXT VEINS RIGHT Accession Number: [id number] CPT: 37876 EXAM: US Duplex Right Lower Extremity Veins, Limited EXAM DATE/TIME: 04/13/2018 10:35 PM CLINICAL HISTORY: 87 years old, male; Signs and symptoms; Edema, localized; Lower extremity, right; Additional info: Edema RT leg meño arrhythmia hypoxemia TECHNIQUE: Real-time Duplex ultrasound of the Right Lower Extremity with 2-D pierce scale, color Doppler flow and spectral waveform analysis. Limited exam was focused on the right lower extremity veins. COMPARISON: No relevant prior studies available. FINDINGS: Right deep veins: Unremarkable. The common femoral, femoral, proximal profunda femoral and popliteal veins are patent without thrombus. Normal Doppler waveforms. Normal compressibility and/or augmentation response. Right superficial veins: Unremarkable. Saphenofemoral junction is patent without thrombus. Other arteries: Incidental note of arterial atherosclerotic calcified plaque. Soft tissues: Unremarkable. IMPRESSION: Negative right lower extremity venous duplex exam without evidence of deep venous thrombosis. To contact [facility] with a general question: [facility] - [phone] For direct physician to physician contact: Physician Hotline - [phone] [facility] ([facility] Facility ID #[id number]) <Electronically signed by Omid Giordano MD in OV> 04/13/182345 Dictated By: Omid Giordano MD Dictated Date/Time: 04/13/182345 Transcribed Date/Time: Copy to: This report is only to be considered final once signed by the Provider(s) as displayed in the "<Electronically Signed by >" field (s). Absence of a signature indicates the report is in a draft status and still needs to be finalized. In the event this document was created by someone other than the signing Provider, the individual initiating the document will be listed in the "Entered by:" or "Dictated by:" murray. 1 of 2 This report is only to be considered final once signed by the Provider(s) as displayed in the "<Electronically Signed by >" field (s). Absence of a signature indicates the report is in a draft status and still needs to be finalized. In the event this document was created by someone other than the signing Provider, the individual initiating the document will be listed in the "Entered by:" or "Dictated by:" murray. 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 and complicated hospital course with VT/VF s/p cardiac arrest overnight and admitted to the ICU thereafter # s/p cardiac arrest 04/12/18- asystole, VT/VF # Resultant left musculoskeletal pain- suspect rib fx from chest compression # Laryngeal Ca s/p total laryngectomy # HFrEF # ICM # Arrhythmias- Chronic AF, VT/VF, bradycardia, AVB # HTN- BP not optimized # Anemia # VIKKI on CKD Plan: # s/p cardiac arrest 04/12/18- asystole, VT/VF # Resultant left musculoskeletal pain- suspect rib fx from chest compression # Laryngeal Ca s/p total laryngectomy # HFrEF # ICM # Arrhythmias- Chronic AF, VT/VF, bradycardia, AVB # HTN- BP not optimized # Anemia # VIKKI on CKD - Awaiting prognostication of laryngeal cancer in terms of if survival is > 1 year for cardio to decide on ICD/PPM - c/w amiodarone - monthly TFTs and biweekly LFTs. Latest 04/13/18 WNL - diuresis with lasix and aldactone. Consider increase in lasix BID if hemodynamics tolerate - Imdur - on ASA - on lipitor - on insulin - suspect rib fractures. Due to cardiac arrhythmias will not do off floor rib series at this point. No paradoxical respiratory status appreciated. Started lido patch, on APAP prn, prn morphine - will start scheduled hydralazine 25 mg BID. Titrate to effective BP target if not contraindicated - prn hydralazine and labetalol Critical Care Time: 45 minutes Prognosis: guarded Dispo: keep in the ICU till definitive tx for arrhythmias is made. Stable to transfer to Medicine service DVT ppx: SCD; will discuss with cardio about starting a/c for chronic af and DVT ppx
[2018-04-14] MEDS: hydrALAZINE TAB* 25 MG PO SCH (20:09)
[2018-04-14] MEDS: Atorvastatin* 40 MG TAB NG TUBE SCH (20:09)
--- NOTE | 2018-04-14 22:24 | PN ---
PROGRESS NOTE: DATE OF SERVICE: 04/14/18 - ROOM #ICU-06 SUBJECTIVE: The patient had a cardiac event on Tuesday after I had seen him and he was transferred to the ICU and is doing well at this time. I have spoken to the ICU attending and the plan is for an automatic internal cardiac defibrillator. The patient says he is doing fairly well. He was working with the speech therapist today on his electrolarynx. Stoma had some dried blood that I was able to pull out. I debrided some of the residual stitches from his surgery. The mucosa is very dry with some superficial scabbing. There is no active bleeding. ASSESSMENT: The main problem the patient is having is his cardiac problem. From a surgical standpoint, he is doing extremely well. The question has come in about the long-term prognosis from his laryngeal carcinoma. His 3-year survival is about 70%. His 1-year survival is certainly well over 90%. My intent of surgery was curative. He did not have any metastatic disease and the margins were clear. [id number]/[facility] #: [id number] [facility]
[2018-04-15] MEDS: hydrALAZINE IV* 20 MG/ML VIAL IV SLOW PU PRN ×2 (00:28→06:06)
[2018-04-15] MEDS: Morphine 4 MG/ML VIAL (1 ml) 4 MG/ML VIAL IV PRN ×2 (03:40→06:40)
[2018-04-15 05:39] LABS: ABS Basophils 0 10^3/ul (0-0.2); ABS Eosinophils 0.1 10^3/ul (0-0.6); ABS Lymphocytes 0.4 10^3/ul (1.0-4.8); ABS Monocytes 0.6 10^3/ul (0-0.8); ABS Nucleated RBC 0 10^3/ul; Eosinophil % 0.7 %; Hematocrit 25 % (42-52); Hemoglobin 8.4 g/dl (14.0-18.0); Lymphocyte % 4.3 %; Mean Corpuscular HGB Conc 33 g/dl (31-36); Mean Corpuscular Hemoglobin 30 pg (27-31); Mean Corpuscular Volume 90 fL (80-94); Mean Platelet Volume 6.7 fL (7.4-10.4); Nucleated Red Blood Cells % 0; Platelet Count 176 10^3/ul (150-450); Red Blood Count 2.78 10^6/ul (4.00-5.40); Red Cell Distribution Width 18 % (10.5-15); White Blood Count 9.1 10^3/ul (3.5-10.8)
[2018-04-15 05:57] LABS: ALT 76 U/L (7-52); AST 31 U/L (13-39); Albumin 2.9 g/dL (3.2-5.2); Albumin/Globulin Ratio 1.3 (1-3); Alkaline Phosphatase 78 U/L (34-104); Anion Gap 3 mmol/L (2-11); BUN/Creatinine Ratio 27.4 (8-20); Blood Urea Nitrogen 46 mg/dL (6-24); CO2 Carbon Dioxide 29 mmol/L (22-32); Calcium 8.3 mg/dL (8.6-10.3); Chloride 104 mmol/L (101-111); EGFR African American 46.8 (>60); EGFR Non-African American 38.7 (>60); Globulin 2.3 g/dL (2-4); Glucose 78 mg/dL (70-100); Potassium 4.1 mmol/L (3.5-5.0); Sodium 136 mmol/L (135-145); Total Protein 5.2 g/dL (6.4-8.9)
[2018-04-15 05:59] LABS: Troponin I 0.03 ng/mL (<0.04)
[2018-04-15 06:06] LABS: % Iron Saturation 8 % (15-55); Iron 21 ug/dL (50-212); Total Iron Binding Capacity 276 mcg/dL (250-450); Transferrin 197 mg/dL (203-362)
[2018-04-15] MEDS: Insulin LISPRO* 1 UNITS UNIT SUBCUT SCH ×4 (07:10→21:06)
[2018-04-15 07:57] LABS: Ferritin 67.1 ng/mL (24-336)
[2018-04-15] MEDS ORDERED: Amiodarone TAB* 200 MG PO SCH (09:00)
[2018-04-15] MEDS: Isosorbide Mononitrate ER TAB* 30 MG PO SCH (09:23)
[2018-04-15] MEDS: metFORMIN* 500 MG TAB PO SCH ×2 (09:23→18:27)
[2018-04-15] MEDS: Lactobacillus Acidophilus* 1 TAB PO SCH ×2 (09:23→21:00)
[2018-04-15] MEDS: hydrALAZINE TAB* 25 MG PO SCH ×2 (09:24→21:00)
[2018-04-15] MEDS: Furosemide TAB* 20 MG PO SCH (09:24)
[2018-04-15] MEDS: Aspirin 81 mg CHEW TAB* 81 MG TAB.CHEW PO SCH (09:24)
[2018-04-15] MEDS ORDERED: oxyCODONE/Acetamin 5/325 MG* TAB PO PRN (09:32)
[2018-04-15] MEDS ORDERED: amLODIPine TAB* 5 MG PO SCH (10:00)
--- NOTE | 2018-04-15 10:13 | PN ---
Subjective Date of Service: 04/15/18 Interval History: Patient can mouth words, write on whiteboard. He states SOB is present, stable. No palpitations. Has pain in RT anterior chest. Had CPR on 04/12 overnight. Coughing also. Does not like food given. Family History: Unchanged from Admission Social History: Unchanged from Admission Past Medical History: Unchanged from Admission Objective Active Medications: Acetaminophen (Tylenol Adult Liq*) 650 mg PEG TUBE Q4H PRN PRN Reason: PAIN Last Admin: 04/13/18 06:02 Dose: 650 mg Al Hydrox/Mg Hydrox/Simethicone (Maalox Plus*) 30 ml NG TUBE Q6H PRN PRN Reason: DYSPEPSIA Last Admin: 03/15/18 10:16 Dose: 30 ml Amiodarone HCl (Cordarone Tab*) 100 mg PO DAILY [facility] Last Admin: 04/15/18 09:23 Dose: 100 mg Aspirin (Aspirin 81 Mg Chew Tab*) 81 mg PO DAILY [facility] Last Admin: 04/15/18 09:24 Dose: 81 mg Atorvastatin Calcium (Lipitor*) 40 mg NG TUBE BEDTIME [facility] Last Admin: 04/14/18 20:09 Dose: 40 mg Atropine Sulfate (Atropine Syringe*) 0.5 mg IV PUSH ONCE PRN PRN Reason: bradycardia Bacitracin (Bacitracin Ointment*) 1 applic TOPICAL TID PRN PRN Reason: WOUND CARE Last Admin: 04/08/18 15:00 Dose: 1 applic Docusate Sodium (Colace Cap*) 100 mg PO BID PRN PRN Reason: CONSTIPATION Furosemide (Lasix Tab*) 20 mg PO DAILY [facility] Last Admin: 04/15/18 09:24 Dose: 20 mg Heparin Sodium (Porcine) (Heparin Flush Picc/Ml/Cvc(*)) 1 - 3 ml FLUSH 0600, 1800 [facility]; Protocol Last Admin: 04/15/18 05:21 Dose: 3 ml Hydralazine HCl (Apresoline Iv*) 10 mg IV SLOW PU Q6H PRN PRN Reason: BLOOD PRESSURE Last Admin: 04/15/18 06:06 Dose: 10 mg Hydralazine HCl (Apresoline Tab*) 25 mg PO BID [facility] Last Admin: 04/15/18 09:24 Dose: 25 mg Insulin Glargine (Lantus(*)) 8 units SUBCUT 1630 [facility] Last Admin: 04/14/18 17:26 Dose: 8 units Insulin Human Lispro (Humalog*) 0 units SUBCUT ACHS [facility]; Protocol Last Admin: 04/14/18 20:09 Dose: Not Given Isosorbide Mononitrate (Imdur Er Tab*) 30 mg PO DAILY [facility] Last Admin: 04/15/18 09:23 Dose: 30 mg Labetalol HCl (Trandate Iv*) 10 mg IV PUSH Q6H PRN PRN Reason: BLOOD PRESSURE Lactobacillus Rhamnosus (Lactobacillus Acidophilus*) 1 tab PO BID [facility] Last Admin: 04/15/18 09:23 Dose: 1 tab Lidocaine (Lidoderm 5% Patch*) 2 patch TRANSDERM DAILY [facility] Metformin HCl (Glucophage*) 500 mg PO 0800,1700 [facility] Last Admin: 04/15/18 09:23 Dose: 500 mg Morphine Sulfate (Morphine Vial*) 2 mg IV Q4H PRN PRN Reason: PAIN - MILD Last Admin: 04/15/18 06:40 Dose: 2 mg Ondansetron HCl (Zofran Inj*) 4 mg IV Q6H PRN PRN Reason: NAUSEA/VOMITING Last Admin: 04/01/18 20:36 Dose: 4 mg Oxycodone/Acetaminophen (Percocet 5/325 Tab*) 0.5 tab PO Q6H PRN PRN Reason: PAIN Pharmacy Profile Note (Lidocaine Patch Remove*) 2 note PATCH OFF 2100 [facility] Senna (Senokot Tab*) 1 tab PO DAILY PRN PRN Reason: CONSTIPATION Vital Signs - 8 hr 04/15/18 04/15/18 04/15/18 03:00 03:01 03:40 Temperature Pulse Rate 54 Respiratory 12 13 23 Rate Blood Pressure 185/55 (mmHg) O2 Sat by Pulse 100 Oximetry 04/15/18 04/15/18 04/15/18 04:00 05:00 06:00 Temperature 36.7 C Pulse Rate 47 45 46 Respiratory 18 10 12 Rate Blood Pressure 175/55 168/58 187/67 (mmHg) O2 Sat by Pulse 99 100 100 Oximetry 04/15/18 04/15/18 04/15/18 06:01 06:40 07:45 Temperature 36.2 C Pulse Rate 47 Respiratory 16 16 Rate Blood Pressure 180/61 (mmHg) O2 Sat by Pulse 100 Oximetry Oxygen Devices in Use Now: Tracheostomy Collar Appearance: Alert, no distress Eyes: No Scleral Icterus Ears/Nose/Mouth/Throat: Clear Oropharnyx Neck: Trachea Midline, - - tracheostomy w/ dried blood Respiratory: Clear to Auscultation, - - diminished Cardiovascular: RRR Abdominal: NL Sounds; No Tenderness; No Distention Lymphatic: No Cervical Adenopathy Extremities: No Edema Neurological: Alert and Oriented x 3 Nutrition: Taking PO's - Nutrition: Malnutrition Diagnosis/Plan Malnutrition Assessment by Registered Dietitian: Malnutrition Assessment Clinical Characteristics Acute,Moderate Malnutrition Assessment: - 6.1% wt loss in past one month Criteria - mild temporal muscle wasting - intake likely <75% EEE x 7 days Malnutrition Assessment: 1. follow STILL OPERATOR re-evaluation of swallowing Interventions function; NPO at this time 2. follow for potential need for PEG placement 3. offer and begin po supplements when pt ready for some level of po intake Malnutrition Assessment: Goals 1. when safe for po intake, pt will tolerate least-restrictive diet texture without evidence of swallowing difficulty or aspiration 2. adequate po intake to maintain present wt and hydration status 3. achieve and maintain serum electrolytes within normal ranges 4. achieve and maintain regulation of bowel pattern; no constipation (or diarrhea) Result Diagrams: 04/15/18 05:25 04/15/18 05:25 Additional Lab and Data: Laboratory Tests 04/14/18 04/14/18 04/14/18 09:00 12:30 17:07 POC Glucose (mg/dL) 111 H 110 H Iron % Saturation Unsat Iron Binding Transferrin Ferritin AST ALT Troponin I 0.04 H* 04/14/18 04/15/18 20:03 05:25 POC Glucose (mg/dL) 91 Iron 21 L % Saturation 8 L Unsat Iron Binding < 261 Transferrin 197 L Ferritin 67.1 AST 31 ALT 76 H Troponin I 0.03 Microbiology and Other Data: Stress echo: EF 55%, no ischemia Assess/Plan/Problems-Billing Mr. 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 Then had asystole. - LifeVest is in place. - Will need AICD/pacer Tuesday - Will discuss with Dr. Lebron (2) Anemia Current Visit: Yes Status: Acute Priority: Medium Code(s): D64.9 - ANEMIA , UNSPECIFIED SNOMED Code(s): 339696618 Comment: - H&H drifting down - Iron deficient, likely from phlebotomy, oozing, CKD, will start iron PO - Given cardiac disease, persistent bleeding and DC, will transfuse if HGB <7 (3) Laryngeal cancer Current Visit: Yes Status: Acute Priority: Medium Comment: - S/P tracheostomy and laryngectomy - Dr. Stubbs following - Appreciate comments re prognosis, patient likely to live >1 year, is candidate for AICD (4) Diabetes mellitus Current Visit: Yes Status: Chronic Priority: Medium Code(s): E11.9 - TYPE 2 DIABETES MELLITUS WITHOUT COMPLICATIONS SNOMED Code(s): 49418559 Comment: - glucose remains stable - BG ACHS, continue lantus 8u and lispro SS (5) HTN (hypertension) Current Visit: Yes Status: Chronic Code(s): I10 - ESSENTIAL (PRIMARY) HYPERTENSION SNOMED Code(s): 44815928 Comment: - BP elevated off metoprolol - will restart norvasc - continue PRN and standing hydralazine Status and Disposition: - Inpatient. ICU level of care due to arrhythmias
[2018-04-15] MEDS: Lidocaine PATCH 5%* 1 PATCH TRANSDERM SCH (10:17)
[2018-04-15] MEDS: oxyCODONE/Acetamin 5/325 MG* TAB PO PRN ×2 (14:24→19:34)
[2018-04-15] MEDS ORDERED: Iron Sucrose* 200 MG in NS 0.9% 100 ML* 100 ML IVPB ONE (15:41)
[2018-04-15] MEDS: Insulin GLARGINE(*) 1 UNITS UNIT SUBCUT SCH (18:27)
[2018-04-15] MEDS: amLODIPine TAB* 5 MG PO SCH (21:00)
[2018-04-15] MEDS: Atorvastatin* 40 MG TAB NG TUBE SCH (21:00)
[2018-04-15] MEDS: Lidocaine Patch REMOVE* 1 NOTE MISC PATCH OFF SCH (21:08)
--- NOTE | 2018-04-15 21:09 | CONS ---
AMENDED REPORT NOW INCLUDES DATE OF CONSULT CARDIOLOGY CONSULTATION: DATE OF CONSULT: 04/15/18 SUMMARY: I was asked to reevaluate this patient for possible ICD pacemaker placement. He has a long complicated hospitalization course. He had surgery on 03/06/18 for laryngeal cancer with tracheostomy placed and laryngeal resection. He was noted to have some nonsustained VT on 03/12/18, and on , he had a 53 beat run of VT. Of note on 03/14/18, he had vomited with the NG -tube in place while his NG-tube feeds were being advanced. It seems as though he may have been having some problems with clearing his trach; during the day on 03/15/18, his heart rates were increased from 108 to 150s and AFib and he had a 53 beat run of VT. Because of that, Dr. Chaudhari saw him in consultation. Echo was obtained which revealed an EF of 30% to 35%, and it was decided to start him on amiodarone and a LifeVest was placed. He has been here for a month recovering and has been in AFib. On 03/15/18, he had a repeat echo which showed an EF of 40% to 45% and was seen by Dr. Jerry. It was felt that a decision would need to be made based on his prognosis as to whether an ICD would be placed or not. Subsequently pm 04/12/18 pm, he had an arrest while the ICD was in place. The ICD interrogation revealed profound bradycardia and asystole. The patient was transferred to the ICU. His metoprolol was held and his amiodarone dose was reduced. He subsequently converted to sinus rhythm with first-degree AV block and intermittent Wenckebach. He had a nuclear stress test yesterday which revealed no evidence of ischemia and an EF of 55%. He has had no VT as far as we can tell since the amiodarone was started. 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 Therefore, I believe that he may benefit from a dual-chamber pacemaker. There is a question of whether he also needs an ICD, and I will consult with Dr. Rios concerning this I have discussed the options with the patient. Dr. Stubbs kindly placed a note stating that the patient's 3-year survival is 70% and his 1-year survival is over 90%/ the intent the surgery was curative. He did not have any metastatic disease and his margins were clear. Therefore, consideration of ICD is indicated. As per my pending discussion with Dr. Rios, it could be considered. I did discuss with the patient and his caregiver, his healthcare proxy that the risks of ICD include recurrent shocks, either appropriately or inappropriately. The patient agrees to proceed as indicated. Another option which I suggested would be to perhaps implant a pacemaker and continue amiodarone therapy and beta-nagi for his tachyarrhythmias and monitor for the need for an upgrade to a defibrillator in the future. This was also discussed with Dr. Liriano, Dr. Zamorano, and Dr. Jerry. Given his bradycardias today, his amiodarone will be held. Further recommendation will depend on his clinical course. [id number]/[facility] #: [id number] VALENTINE
[2018-04-16] MEDS: hydrALAZINE IV* 20 MG/ML VIAL IV SLOW PU PRN (00:07)
[2018-04-16] MEDS: oxyCODONE/Acetamin 5/325 MG* TAB PO PRN ×4 (04:09→23:20)
[2018-04-16] MEDS: Ondansetron INJ* 2 MG/ML VIAL IV PRN (06:57)
[2018-04-16] MEDS: metFORMIN* 500 MG TAB PO SCH ×2 (08:32→17:47)
[2018-04-16] MEDS: Furosemide TAB* 20 MG PO SCH (08:32)
[2018-04-16] MEDS: Isosorbide Mononitrate ER TAB* 30 MG PO SCH (08:32)
[2018-04-16] MEDS: amLODIPine TAB* 5 MG PO SCH ×2 (08:32→20:22)
[2018-04-16] MEDS: Aspirin 81 mg CHEW TAB* 81 MG TAB.CHEW PO SCH (08:32)
[2018-04-16] MEDS: Insulin LISPRO* 1 UNITS UNIT SUBCUT SCH ×4 (08:33→20:23)
[2018-04-16] MEDS: hydrALAZINE TAB* 25 MG PO SCH ×2 (08:33→20:22)
[2018-04-16] MEDS: Ferrous Gluconate TAB* 324 MG TAB PO SCH (08:33)
[2018-04-16] MEDS: Lactobacillus Acidophilus* 1 TAB PO SCH ×2 (08:33→20:22)
[2018-04-16] MEDS: Lidocaine PATCH 5%* 1 PATCH TRANSDERM SCH (08:40)
--- NOTE | 2018-04-16 09:19 | PN ---
Subjective Date of Service: 04/16/18 Interval History: Patient had some pain in RT side chest overnight, responded to percocet. No other issues or complaints overnight. Little appetite this morning. Family History: Unchanged from Admission Social History: Unchanged from Admission Past Medical History: Unchanged from Admission Objective Active Medications: Acetaminophen (Tylenol Adult Liq*) 650 mg PEG TUBE Q4H PRN PRN Reason: PAIN Last Admin: 04/13/18 06:02 Dose: 650 mg Al Hydrox/Mg Hydrox/Simethicone (Maalox Plus*) 30 ml NG TUBE Q6H PRN PRN Reason: DYSPEPSIA Last Admin: 03/15/18 10:16 Dose: 30 ml Amlodipine Besylate (Norvasc Tab*) 5 mg PO BID [facility] Last Admin: 04/16/18 08:32 Dose: 5 mg Aspirin (Aspirin 81 Mg Chew Tab*) 81 mg PO DAILY [facility] Last Admin: 04/16/18 08:32 Dose: 81 mg Atorvastatin Calcium (Lipitor*) 40 mg NG TUBE BEDTIME [facility] Last Admin: 04/15/18 21:00 Dose: 40 mg Atropine Sulfate (Atropine Syringe*) 0.5 mg IV PUSH ONCE PRN PRN Reason: bradycardia Bacitracin (Bacitracin Ointment*) 1 applic TOPICAL TID PRN PRN Reason: WOUND CARE Last Admin: 04/08/18 15:00 Dose: 1 applic Docusate Sodium (Colace Cap*) 100 mg PO BID PRN PRN Reason: CONSTIPATION Ferrous Gluconate (Fergon Tab*) 324 mg PO DAILY [facility] Last Admin: 04/16/18 08:33 Dose: 324 mg Furosemide (Lasix Tab*) 20 mg PO DAILY [facility] Last Admin: 04/16/18 08:32 Dose: 20 mg Heparin Sodium (Porcine) (Heparin Flush Picc/Ml/Cvc(*)) 1 - 3 ml FLUSH 0600, 1800 [facility]; Protocol Last Admin: 04/16/18 06:10 Dose: 3 ml Hydralazine HCl (Apresoline Iv*) 10 mg IV SLOW PU Q6H PRN PRN Reason: BLOOD PRESSURE Last Admin: 04/16/18 00:07 Dose: 10 mg Hydralazine HCl (Apresoline Tab*) 25 mg PO BID [facility] Last Admin: 04/16/18 08:33 Dose: 25 mg Insulin Glargine (Lantus(*)) 8 units SUBCUT 1630 [facility] Last Admin: 04/15/18 18:27 Dose: 8 units Insulin Human Lispro (Humalog*) 0 units SUBCUT ACHS [facility]; Protocol Last Admin: 04/16/18 08:33 Dose: Not Given Isosorbide Mononitrate (Imdur Er Tab*) 30 mg PO DAILY [facility] Last Admin: 04/16/18 08:32 Dose: 30 mg Labetalol HCl (Trandate Iv*) 10 mg IV PUSH Q6H PRN PRN Reason: BLOOD PRESSURE Lactobacillus Rhamnosus (Lactobacillus Acidophilus*) 1 tab PO BID [facility] Last Admin: 04/16/18 08:33 Dose: 1 tab Lidocaine (Lidoderm 5% Patch*) 2 patch TRANSDERM DAILY [facility] Last Admin: 04/16/18 08:40 Dose: 2 patch Metformin HCl (Glucophage*) 500 mg PO 0800,1700 [facility] Last Admin: 04/16/18 08:32 Dose: 500 mg Morphine Sulfate (Morphine Vial*) 2 mg IV Q4H PRN PRN Reason: PAIN - MILD Last Admin: 04/15/18 06:40 Dose: 2 mg Ondansetron HCl (Zofran Inj*) 4 mg IV Q6H PRN PRN Reason: NAUSEA/VOMITING Last Admin: 04/16/18 06:57 Dose: 4 mg Oxycodone/Acetaminophen (Percocet 5/325 Tab*) 1 tab PO Q4H PRN PRN Reason: PAIN Last Admin: 04/16/18 08:32 Dose: 1 tab Pharmacy Profile Note (Lidocaine Patch Remove*) 2 note PATCH OFF 2100 [facility] Last Admin: 04/15/18 21:08 Dose: 2 note Senna (Senokot Tab*) 1 tab PO DAILY PRN PRN Reason: CONSTIPATION Vital Signs - 8 hr 04/16/18 04/16/18 04/16/18 06:00 06:55 06:56 Temperature Pulse Rate 54 78 67 Respiratory 12 18 23 Rate Blood Pressure 176/53 189/67 197/70 (mmHg) O2 Sat by Pulse 97 97 98 Oximetry 04/16/18 04/16/18 04/16/18 07:00 07:19 07:44 Temperature 36.8 C Pulse Rate 61 54 Respiratory 20 14 Rate Blood Pressure 191/56 149/48 (mmHg) O2 Sat by Pulse 97 96 Oximetry 04/16/18 04/16/18 04/16/18 08:00 08:01 08:32 Temperature Pulse Rate 53 54 Respiratory 15 10 15 Rate Blood Pressure 158/48 (mmHg) O2 Sat by Pulse 97 97 Oximetry Oxygen Devices in Use Now: Tracheostomy Collar Appearance: alert, no distress Ears/Nose/Mouth/Throat: NL Teeth, Lips, Gums Neck: - - tracheostomy present Respiratory: Symmetrical Chest Expansion and Respiratory Effort, Clear to Auscultation, - - diminished throughout Cardiovascular: NL Sounds; No Murmurs; No JVD, RRR Abdominal: NL Sounds; No Tenderness; No Distention Neurological: Alert and Oriented x 3 Lines/Tubes/Other Access: Clean, Dry and Intact Tracheostomy, Clean, Dry and Intact Peripheral IV Nutrition: Taking PO's - Nutrition: Malnutrition Diagnosis/Plan Malnutrition Assessment by Registered Dietitian: Malnutrition Assessment Clinical Characteristics Acute,Moderate Malnutrition Assessment: - 6.1% wt loss in past one month Criteria - mild temporal muscle wasting - intake likely <75% EEE x 7 days Malnutrition Assessment: 1. follow CHEMICAL ENGINEERING TECHNICIAN re-evaluation of swallowing Interventions function; NPO at this time 2. follow for potential need for PEG placement 3. offer and begin po supplements when pt ready for some level of po intake Malnutrition Assessment: Goals 1. when safe for po intake, pt will tolerate least-restrictive diet texture without evidence of swallowing difficulty or aspiration 2. adequate po intake to maintain present wt and hydration status 3. achieve and maintain serum electrolytes within normal ranges 4. achieve and maintain regulation of bowel pattern; no constipation (or diarrhea) Result Diagrams: 04/15/18 05:25 04/15/18 05:25 Additional Lab and Data: L Microbiology and Other Data: Stress echo: EF 55%, no ischemia EKG Data: Telemetry, no VT, some sinus meño LifeVest interrogation shows it did not discharge Assess/Plan/Problems-Billing Mr. 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 - Will need AICD or regular pacer tomorrow - Discussed with Dr. Lebron (2) Anemia Current Visit: Yes Status: Acute Priority: Medium Code(s): D64.9 - ANEMIA , UNSPECIFIED SNOMED Code(s): 474433572 Comment: - H&H drifting down - Iron deficient, likely from phlebotomy, oozing, CKD, will start iron PO - Given cardiac disease, persistent bleeding and WI, will transfuse if HGB <7 (3) Laryngeal cancer Current Visit: Yes Status: Acute Priority: Medium Comment: - S/P tracheostomy and laryngectomy - Dr. Stubbs following - Appreciate comments re prognosis, patient likely to live >1 year, is candidate for AICD (4) Diabetes mellitus Current Visit: Yes Status: Chronic Priority: Medium Code(s): E11.9 - TYPE 2 DIABETES MELLITUS WITHOUT COMPLICATIONS SNOMED Code(s): 84318102 Comment: - glucose remains stable - BG ACHS, continue lantus 8u and lispro SS (5) HTN (hypertension) Current Visit: Yes Status: Chronic Priority: Medium Code(s): I10 - ESSENTIAL (PRIMARY) HYPERTENSION SNOMED Code(s): 52738324 Comment: - BP elevated off metoprolol - BP improved on norvasc - continue PRN and standing hydralazine (6) Tachycardia-bradycardia syndrome Current Visit: Yes Status: Acute Priority: Medium Code(s): I49.5 - SICK SINUS SYNDROME SNOMED Code(s): 70508364 Comment: -Not tolerating beta blockers, has bradycardia -Will need pacer at minimum tomorrow. Status and Disposition: - Inpatient. ICU level of care due to arrhythmias
[2018-04-16] MEDS: Insulin GLARGINE(*) 1 UNITS UNIT SUBCUT SCH (17:48)
[2018-04-16] MEDS: Atorvastatin* 40 MG TAB NG TUBE SCH (20:22)
[2018-04-16] MEDS: Docusate CAP* 100 MG PO PRN (20:40)
[2018-04-16] MEDS: Senna TAB PO PRN (20:40)
[2018-04-16] MEDS: Lidocaine Patch REMOVE* 1 NOTE MISC PATCH OFF SCH (20:41)
[2018-04-17] MEDS: Lactobacillus Acidophilus* 1 TAB PO SCH ×2 (07:56→20:48)
[2018-04-17] MEDS: Ferrous Gluconate TAB* 324 MG TAB PO SCH (07:56)
[2018-04-17] MEDS: metFORMIN* 500 MG TAB PO SCH ×2 (07:59→18:10)
[2018-04-17] MEDS: Insulin LISPRO* 1 UNITS UNIT SUBCUT SCH ×4 (07:59→20:39)
[2018-04-17] MEDS ORDERED: Famotidine IV* 10 MG/ML 2 ML (20 mg) IV SLOW PU ONE (08:04)
[2018-04-17] MEDS ORDERED: ceFAZolin 1 GM/10 ML flush(*) SYRINGE for pocket flush (cardiology) FLUSH ONE (08:09)
[2018-04-17] MEDS ORDERED: ceFAZolin 2 GM PREMIX in ORs 2 GM/50 ML BAG IVPB ONE (08:09)
[2018-04-17] MEDS: amLODIPine TAB* 5 MG PO SCH ×2 (08:15→20:47)
[2018-04-17] MEDS: oxyCODONE/Acetamin 5/325 MG* TAB PO PRN (08:15)
[2018-04-17] MEDS: Isosorbide Mononitrate ER TAB* 30 MG PO SCH (08:15)
[2018-04-17] MEDS ORDERED: NS 0.9% 1000 ML** 1,000 ML IV SCH (08:15)
[2018-04-17] MEDS: Furosemide TAB* 20 MG PO SCH (08:15)
[2018-04-17] MEDS: Aspirin 81 mg CHEW TAB* 81 MG TAB.CHEW PO SCH (08:15)
[2018-04-17] MEDS: hydrALAZINE TAB* 25 MG PO SCH ×2 (08:15→20:47)
[2018-04-17] MEDS: Lidocaine PATCH 5%* 1 PATCH TRANSDERM SCH (08:17)
[2018-04-17] MEDS ORDERED: Famotidine IV* 10 MG/ML 2 ML (20 mg) ONE (08:24)
[2018-04-17] MEDS ORDERED: Dextrose 50% Syringe 50 ML* 25 GM/50 ML SYRINGE ONE (08:42)
[2018-04-17] MEDS ORDERED: NS 0.9% IVPB ONE ×2 (09:00)
[2018-04-17] MEDS ORDERED: Dextrose 50% Syringe 50 ML* 25 GM/50 ML SYRINGE IV PUSH ONE (09:00)
[2018-04-17] MEDS ORDERED: CEFAZOLIN IVPB ONE ×2 (09:00)
[2018-04-17] MEDS ORDERED: ADVAN IVPB ONE ×2 (09:00)
[2018-04-17] MEDS ORDERED: KETAMINE HCL* 50 MG/ML 10 ML VIAL ONE (09:04)
[2018-04-17] MEDS ORDERED: Midazolam* 1 MG/ML 10 ML VIAL (10 MG) ONE (09:04)
[2018-04-17] MEDS ORDERED: fentaNYL* 50 MCG/ML 5 ML VIAL (250 MCG VIAL) ONE (09:04)
[2018-04-17] MEDS ORDERED: Lidocaine 1% INJ* 10 MG/ML 30 ML SDV ONE (10:10)
[2018-04-17] MEDS ORDERED: Acetaminophen TAB* 325 MG PO PRN ×2 (11:34→15:57)
[2018-04-17] MEDS ORDERED: ceFAZolin VIAL(*) 1 GM in NS 0.9% 50 ML* 50 ML IVPB SCH (12:00)
[2018-04-17] MEDS ORDERED: Propofol* 500 MG/50 ML BTL ONE (12:16)
[2018-04-17] MEDS ORDERED: Albuterol 2.5 MG/3 ML NEB.SOL* (0.083%) INH PRN (13:01)
[2018-04-17] MEDS ORDERED: Furosemide IV* 10 MG/ML 2 ML VIAL (20 MG) IV ONE (13:54)
[2018-04-17] MEDS ORDERED: Furosemide IV* 10 MG/ML 2 ML VIAL (20 MG) ONE (14:01)
[2018-04-17] MEDS: ceFAZolin 1 GM in Dextrose (*) 1 GM/50 ML BAG IVPB SCH ×2 (15:36→23:32)
[2018-04-17] MEDS ORDERED: Dextrose 50% Syringe 50 ML* 25 GM/50 ML SYRINGE IV PUSH PRN (15:58)
--- NOTE | 2018-04-17 16:04 | PN ---
Subjective Date of Service: 04/17/18 Interval History: Patient had some increased SOB this afternoon. Pacemaker placed this AM, no complications. Had 300 ml NS intra-op. Had lasix this afternoon, and has diuresed well. Feels less SOB now. Family History: Unchanged from Admission Social History: Unchanged from Admission Past Medical History: Unchanged from Admission Objective Active Medications: Acetaminophen (Tylenol Tab*) 650 mg PO Q4H PRN PRN Reason: FEVER/HEADACHE Albuterol (Ventolin 2.5 Mg/3 Ml Neb.Leslie*) 2.5 mg INH Q4H PRN PRN Reason: SOB/WHEEZING Last Admin: 04/17/18 13:12 Dose: 2.5 mg Amlodipine Besylate (Norvasc Tab*) 5 mg PO BID [facility] Last Admin: 04/17/18 08:15 Dose: 5 mg Aspirin (Aspirin 81 Mg Chew Tab*) 81 mg PO DAILY [facility] Last Admin: 04/17/18 08:15 Dose: 81 mg Atorvastatin Calcium (Lipitor*) 40 mg NG TUBE BEDTIME [facility] Last Admin: 04/16/18 20:22 Dose: 40 mg Atropine Sulfate (Atropine Syringe*) 0.5 mg IV PUSH ONCE PRN PRN Reason: bradycardia Bacitracin (Bacitracin Ointment*) 1 applic TOPICAL TID PRN PRN Reason: WOUND CARE Last Admin: 04/08/18 15:00 Dose: 1 applic Docusate Sodium (Colace Cap*) 100 mg PO BID PRN PRN Reason: CONSTIPATION Last Admin: 04/16/18 20:40 Dose: 100 mg Ferrous Gluconate (Fergon Tab*) 324 mg PO DAILY [facility] Last Admin: 04/17/18 07:56 Dose: Not Given Furosemide (Lasix Tab*) 20 mg PO DAILY [facility] Last Admin: 04/17/18 08:15 Dose: 20 mg Heparin Sodium (Porcine) (Heparin Flush Picc/Ml/Cvc(*)) 1 - 3 ml FLUSH 0600, 1800 [facility]; Protocol Last Admin: 04/17/18 08:46 Dose: 1 ml Hydralazine HCl (Apresoline Tab*) 25 mg PO BID [facility] Last Admin: 04/17/18 08:15 Dose: 25 mg Sodium Chloride (Ns 0.9% 1000 Ml) 1,000 mls @ 100 mls/hr IV PER RATE [facility] Cefazolin Sodium/Dextrose (Kefzol 1 Gm In Dextrose Duplex (*)) 1 gm in 50 mls @ 200 mls/hr IVPB Q8H [facility] Stop: 04/18/18 08:14 Last Admin: 04/17/18 15:36 Dose: 200 mls/hr Insulin Glargine (Lantus(*)) 5 units SUBCUT 1630 [facility] Insulin Human Lispro (Humalog*) 0 units SUBCUT ACHS [facility]; Protocol Last Admin: 04/17/18 12:55 Dose: Not Given Isosorbide Mononitrate (Imdur Er Tab*) 30 mg PO DAILY [facility] Last Admin: 04/17/18 08:15 Dose: 30 mg Lactobacillus Rhamnosus (Lactobacillus Acidophilus*) 1 tab PO BID [facility] Last Admin: 04/17/18 07:56 Dose: Not Given Lidocaine (Lidoderm 5% Patch*) 2 patch TRANSDERM DAILY [facility] Last Admin: 04/17/18 08:17 Dose: 2 patch Metformin HCl (Glucophage*) 500 mg PO 0800,1700 [facility] Last Admin: 04/17/18 07:59 Dose: Not Given Metoprolol Tartrate (Lopressor Tab*) 25 mg PO Q8H [facility] Morphine Sulfate (Morphine Vial*) 2 mg IV Q4H PRN PRN Reason: PAIN - MILD Last Admin: 04/15/18 06:40 Dose: 2 mg Ondansetron HCl (Zofran Inj*) 4 mg IV Q6H PRN PRN Reason: NAUSEA/VOMITING Last Admin: 04/16/18 06:57 Dose: 4 mg Oxycodone/Acetaminophen (Percocet 5/325 Tab*) 1 tab PO Q4H PRN PRN Reason: PAIN Last Admin: 04/17/18 08:15 Dose: 1 tab Pharmacy Profile Note (Lidocaine Patch Remove*) 2 note PATCH OFF 2100 [facility] Last Admin: 04/16/18 20:41 Dose: 2 note Senna (Senokot Tab*) 1 tab PO DAILY PRN PRN Reason: CONSTIPATION Last Admin: 04/16/18 20:40 Dose: 1 tab Vital Signs - 8 hr 04/17/18 04/17/18 04/17/18 08:00 08:01 08:15 Temperature Pulse Rate 52 52 Respiratory 14 16 16 Rate Blood Pressure 158/51 (mmHg) O2 Sat by Pulse 98 99 Oximetry 03/11/19 03/11/19 03/11/19 09:00 09:37 10:00 Temperature 36.6 C Pulse Rate 52 50 Respiratory 20 9 Rate Blood Pressure 161/50 162/58 (mmHg) O2 Sat by Pulse 99 100 Oximetry 04/17/18 04/17/18 04/17/18 10:01 11:55 12:00 Temperature Pulse Rate 49 60 Respiratory 10 19 25 Rate Blood Pressure 174/69 160/58 (mmHg) O2 Sat by Pulse 100 98 Oximetry 04/17/18 04/17/18 04/17/18 12:04 12:15 12:30 Temperature 36.9 C Pulse Rate 60 60 Respiratory 18 15 Rate Blood Pressure 156/64 154/60 (mmHg) O2 Sat by Pulse 99 98 Oximetry 04/17/18 04/17/18 04/17/18 12:46 13:00 13:10 Temperature Pulse Rate 69 58 67 Respiratory 16 17 21 Rate Blood Pressure 155/75 156/146 172/73 (mmHg) O2 Sat by Pulse 89 93 Oximetry 04/17/18 04/17/18 04/17/18 13:16 13:30 14:00 Temperature Pulse Rate 67 67 81 Respiratory 18 19 17 Rate Blood Pressure 162/68 (mmHg) O2 Sat by Pulse 100 99 98 Oximetry 04/17/18 04/17/18 04/17/18 14:01 14:06 14:30 Temperature Pulse Rate 85 82 79 Respiratory 18 27 19 Rate Blood Pressure 91/68 145/71 143/66 (mmHg) O2 Sat by Pulse 97 100 99 Oximetry 04/17/18 15:01 Temperature Pulse Rate 85 Respiratory 20 Rate Blood Pressure 139/63 (mmHg) O2 Sat by Pulse 100 Oximetry Oxygen Devices in Use Now: Tracheostomy Collar Appearance: alert, no distress Eyes: No Scleral Icterus Neck: NL Appearance and Movements; NL JVP, - - tracheostomy present Respiratory: Symmetrical Chest Expansion and Respiratory Effort, Clear to Auscultation Cardiovascular: NL Sounds; No Murmurs; No JVD, RRR, No Edema Abdominal: NL Sounds; No Tenderness; No Distention Neurological: Alert and Oriented x 3 Lines/Tubes/Other Access: Clean, Dry and Intact Peripheral IV Nutrition: Taking PO's - Nutrition: Malnutrition Diagnosis/Plan Malnutrition Assessment by Registered Dietitian: Malnutrition Assessment Clinical Characteristics Acute,Moderate Malnutrition Assessment: - 6.1% wt loss in past one month Criteria - mild temporal muscle wasting - intake likely <75% EEE x 7 days Malnutrition Assessment: 1. follow LOW VISION THERAPIST re-evaluation of swallowing Interventions function; NPO at this time 2. follow for potential need for PEG placement 3. offer and begin po supplements when pt ready for some level of po intake Malnutrition Assessment: Goals 1. when safe for po intake, pt will tolerate least-restrictive diet texture without evidence of swallowing difficulty or aspiration 2. adequate po intake to maintain present wt and hydration status 3. achieve and maintain serum electrolytes within normal ranges 4. achieve and maintain regulation of bowel pattern; no constipation (or diarrhea) Result Diagrams: 04/15/18 05:25 04/15/18 05:25 Additional Lab and Data: Laboratory Tests 04/16/18 04/17/18 04/17/18 20:22 07:53 09:30 POC Glucose (mg/dL) 147 H 67 L 117 H 04/17/18 12:28 POC Glucose (mg/dL) 71 Microbiology and Other Data: Diagnostic Imaging: Post-pacer CXR: no pneumo Assess/Plan/Problems-Billing Mr. 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 - will discuss removing lifevest with Dr. Rios (2) Anemia Current Visit: Yes Status: Acute Priority: Medium Code(s): D64.9 - ANEMIA , UNSPECIFIED SNOMED Code(s): 911072101 Comment: - Will recheck CBC - Iron deficient, likely from phlebotomy, oozing, CKD, now on iron PO (3) Laryngeal cancer Current Visit: Yes Status: Acute Priority: Medium Comment: - S/P tracheostomy and laryngectomy - stable today (4) Diabetes mellitus Current Visit: Yes Status: Chronic Priority: Medium Code(s): E11.9 - TYPE 2 DIABETES MELLITUS WITHOUT COMPLICATIONS SNOMED Code(s): 80988620 Comment: - glucose appears over-treated - BG ACHS, decrease lantus 5u and lispro SS (5) HTN (hypertension) Current Visit: Yes Status: Chronic Priority: Medium Code(s): I10 - ESSENTIAL (PRIMARY) HYPERTENSION SNOMED Code(s): 81346324 Comment: - Can restart beta nagi to lower BP, prevent VT, other tachy-arrhythmias - BP improved on norvasc (6) Tachycardia-bradycardia syndrome Current Visit: Yes Status: Acute Priority: Medium Code(s): I49.5 - SICK SINUS SYNDROME SNOMED Code(s): 50797148 Comment: -metoprolol started -will discuss with Dr. Rios Status and Disposition: - Inpatient. Can move to 4S
[2018-04-17] MEDS ORDERED: Insulin GLARGINE(*) 1 UNITS UNIT SUBCUT SCH (16:30)
[2018-04-17] MEDS: Metoprolol Tartrate TAB* 25 MG PO SCH ×2 (18:10→23:29)
[2018-04-17] MEDS: Senna TAB PO PRN (18:10)
[2018-04-17] MEDS: Docusate CAP* 100 MG PO PRN (18:10)
[2018-04-17] MEDS: Atorvastatin* 40 MG TAB NG TUBE SCH (20:47)
[2018-04-17] MEDS: Lidocaine Patch REMOVE* 1 NOTE MISC PATCH OFF SCH (20:51)
--- NOTE | 2018-04-18 01:03 | OP ---
CC: Dr. Jung Lebron.* DATE OF OPERATION: 04/17/18 - ROOM #447 DATE OF : [birth year]. SURGEON: Kaushik Rios MD. ANESTHESIOLOGIST: Dr. Gillespie. ANESTHESIA: MAC anesthesia. PRE-OP DIAGNOSES: Sick sinus syndrome, asystole. POST-OP DIAGNOSES: Sick sinus syndrome, asystole. OPERATIVE PROCEDURE: Dual-chamber pacemaker implantation. COMPLICATIONS: None. ESTIMATED BLOOD LOSS: Nil. INDICATION: The patient is an 87-year-old gentleman who was admitted to the hospital 6 weeks ago because of laryngeal cancer. He underwent that surgery. Postprocedure, he was having runs of ventricular tachycardia and had some degree of cardiomyopathy over the last 6 weeks. His LV function is improved and he has had no further episodes of ventricular tachycardia. Patient did have an asystolic arrest recently. Permanent pacemaker was recommended. DESCRIPTION OF PROCEDURE: The patient was brought to the operating room in a fasting state. Informed consent had been obtained prior to the procedure. All labs were reviewed. The patient was placed supine on the procedure table. His left deltopectoral area was cleaned and draped in the usual fashion. A 1% lidocaine was used for local anesthesia. The axillary vein was entered by Seldinger technique and a guidewire was placed. A second guidewire was placed in the same technique. A 3.5 cm incision was made in the pectoral area, blunt dissection was carried down to the pectoral fascia, and a pocket was fashioned for the pacemaker. Over the first guidewire, a 7-[place] sheath introducer was placed, through which a right ventricular lead was advanced to the RV apex. The right ventricular lead is a [employer]tronic, model 5076, serial number [id number] , and an R- wave sensitivity of 7.2, impedance 978 ohms, threshold 1.1 volts at 0.5 milliseconds. The ventricular lead was sutured to the pectoral fascia. Over the second guidewire, a 7-[place] sheath introducer was placed through which a right atrial lead was advanced to the high right atrium. The right atrial lead is a [employer]tronic, model 5076, serial number [id number] and a P-wave sensitivity of 1.1, impedance of 493 ohms, threshold 1.6 volts at 0.5 milliseconds. The atrial lead was sutured to the pectoral fascia. The pocket was flushed with antibiotic infused normal saline. A generator was attached appropriately to the atrioventricular lead. The generator is a [employer], model W1DR01, serial number [id number]. The device was placed in the pocket. The surgical incision was closed in three layers. [id number]/[facility] #: [id number] MTDCalista
[2018-04-18 05:01] LABS: ABS Basophils 0 10^3/ul (0-0.2); ABS Eosinophils 0.1 10^3/ul (0-0.6); ABS Lymphocytes 0.2 10^3/ul (1.0-4.8); ABS Monocytes 0.5 10^3/ul (0-0.8); ABS Neutrophils 6.9 10^3/ul (1.5-7.7); ABS Nucleated RBC 0 10^3/ul; Eosinophil % 1.2 %; Hematocrit 27 % (42-52); Hemoglobin 8.9 g/dl (14.0-18.0); Lymphocyte % 2.8 %; Mean Corpuscular HGB Conc 33 g/dl (31-36); Mean Corpuscular Hemoglobin 30 pg (27-31); Mean Corpuscular Volume 90 fL (80-94); Mean Platelet Volume 6.9 fL (7.4-10.4); Nucleated Red Blood Cells % 0; Platelet Count 169 10^3/ul (150-450); Red Blood Count 2.97 10^6/ul (4.00-5.40); Red Cell Distribution Width 18 % (10.5-15); White Blood Count 7.7 10^3/ul (3.5-10.8)
[2018-04-18 05:17] LABS: BUN/Creatinine Ratio 21.1 (8-20); Calcium 8.4 mg/dL (8.6-10.3); EGFR African American 44.6 (>60); EGFR Non-African American 36.9 (>60); Potassium 3.9 mmol/L (3.5-5.0)
[2018-04-18] MEDS: hydrALAZINE TAB* 25 MG PO SCH ×2 (08:36→21:49)
[2018-04-18] MEDS: Lactobacillus Acidophilus* 1 TAB PO SCH ×2 (08:36→21:48)
[2018-04-18] MEDS: Aspirin 81 mg CHEW TAB* 81 MG TAB.CHEW PO SCH (08:36)
[2018-04-18] MEDS: Isosorbide Mononitrate ER TAB* 30 MG PO SCH (08:36)
[2018-04-18] MEDS: Ferrous Gluconate TAB* 324 MG TAB PO SCH (08:36)
[2018-04-18] MEDS: Furosemide TAB* 20 MG PO SCH (08:36)
[2018-04-18] MEDS: amLODIPine TAB* 5 MG PO SCH ×2 (08:36→21:49)
[2018-04-18] MEDS: Metoprolol Tartrate TAB* 25 MG PO SCH ×2 (08:36→16:41)
[2018-04-18] MEDS: metFORMIN* 500 MG TAB PO SCH ×2 (08:36→18:00)
[2018-04-18] MEDS: ceFAZolin 1 GM in Dextrose (*) 1 GM/50 ML BAG IVPB SCH (08:37)
[2018-04-18] MEDS: Insulin LISPRO* 1 UNITS UNIT SUBCUT SCH ×4 (08:49→21:49)
[2018-04-18] MEDS: Lidocaine PATCH 5%* 1 PATCH TRANSDERM SCH (10:21)
--- NOTE | 2018-04-18 15:29 | PN ---
Subjective Date of Service: 04/18/18 Interval History: Patient has no new complaints. Communicated by [facility]. Had pacemaker yesterday. is at home, has Alzheimers. Unclear that patient can suction self, care for trach himself. Niece Helena is name patient gave to call. Family History: Unchanged from Admission Social History: Unchanged from Admission Past Medical History: Unchanged from Admission Objective Active Medications: Acetaminophen (Tylenol Tab*) 650 mg PO Q4H PRN PRN Reason: FEVER/HEADACHE Albuterol (Ventolin 2.5 Mg/3 Ml Neb.Leslie*) 2.5 mg INH Q4H PRN PRN Reason: SOB/WHEEZING Last Admin: 04/17/18 13:12 Dose: 2.5 mg Amiodarone HCl (Cordarone Tab*) 100 mg PO DAILY [facility] Amlodipine Besylate (Norvasc Tab*) 5 mg PO BID [facility] Last Admin: 04/18/18 08:36 Dose: 5 mg Aspirin (Aspirin 81 Mg Chew Tab*) 81 mg PO DAILY [facility] Last Admin: 04/18/18 08:36 Dose: 81 mg Atorvastatin Calcium (Lipitor*) 40 mg NG TUBE BEDTIME [facility] Last Admin: 04/17/18 20:47 Dose: 40 mg Atropine Sulfate (Atropine Syringe*) 0.5 mg IV PUSH ONCE PRN PRN Reason: bradycardia Bacitracin (Bacitracin Ointment*) 1 applic TOPICAL TID PRN PRN Reason: WOUND CARE Last Admin: 04/08/18 15:00 Dose: 1 applic Cephalexin HCl (Keflex Cap*) 250 mg PO TID [facility] Stop: 04/20/18 23:59 Dextrose (D50w Syringe 50 Ml*) 25 gm IV PUSH ONCE PRN PRN Reason: FS < 60 Last Admin: 04/18/18 01:58 Dose: 25 gm Docusate Sodium (Colace Cap*) 100 mg PO BID PRN PRN Reason: CONSTIPATION Last Admin: 04/17/18 18:10 Dose: 100 mg Ferrous Gluconate (Fergon Tab*) 324 mg PO DAILY [facility] Last Admin: 04/18/18 08:36 Dose: 324 mg Furosemide (Lasix Tab*) 20 mg PO DAILY [facility] Last Admin: 04/18/18 08:36 Dose: 20 mg Heparin Sodium (Porcine) (Heparin Flush Picc/Ml/Cvc(*)) 1 - 3 ml FLUSH 0600, 1800 [facility]; Protocol Last Admin: 04/18/18 05:45 Dose: 3 ml Hydralazine HCl (Apresoline Tab*) 25 mg PO BID [facility] Last Admin: 04/18/18 08:36 Dose: 25 mg Sodium Chloride (Ns 0.9% 1000 Ml) 1,000 mls @ 100 mls/hr IV PER RATE [facility] Insulin Glargine (Lantus(*)) 2 units SUBCUT 1630 [facility] Insulin Human Lispro (Humalog*) 0 units SUBCUT ACHS [facility]; Protocol Last Admin: 04/18/18 14:44 Dose: Not Given Isosorbide Mononitrate (Imdur Er Tab*) 30 mg PO DAILY [facility] Last Admin: 04/18/18 08:36 Dose: 30 mg Lactobacillus Rhamnosus (Lactobacillus Acidophilus*) 1 tab PO BID [facility] Last Admin: 04/18/18 08:36 Dose: 1 tab Lidocaine (Lidoderm 5% Patch*) 2 patch TRANSDERM DAILY [facility] Last Admin: 04/18/18 10:21 Dose: 1 patch Metformin HCl (Glucophage*) 500 mg PO 0800,1700 [facility] Last Admin: 04/18/18 08:36 Dose: 500 mg Metoprolol Tartrate (Lopressor Tab*) 25 mg PO Q8H [facility] Last Admin: 04/18/18 08:36 Dose: 25 mg Morphine Sulfate (Morphine Vial*) 2 mg IV Q4H PRN PRN Reason: PAIN - MILD Last Admin: 04/15/18 06:40 Dose: 2 mg Ondansetron HCl (Zofran Inj*) 4 mg IV Q6H PRN PRN Reason: NAUSEA/VOMITING Last Admin: 04/16/18 06:57 Dose: 4 mg Oxycodone/Acetaminophen (Percocet 5/325 Tab*) 1 tab PO Q4H PRN PRN Reason: PAIN Last Admin: 04/17/18 08:15 Dose: 1 tab Pharmacy Profile Note (Lidocaine Patch Remove*) 2 note PATCH OFF 2100 [facility] Last Admin: 04/17/18 20:51 Dose: 2 note Senna (Senokot Tab*) 1 tab PO DAILY PRN PRN Reason: CONSTIPATION Last Admin: 04/17/18 18:10 Dose: 1 tab Vital Signs - 8 hr 0304/18/18 04/18/18 08:00 11:11 14:03 Temperature 36.6 C Pulse Rate 59 Respiratory 16 18 18 Rate O2 Sat by Pulse 100 69 Oximetry 04/18/18 14:04 Temperature Pulse Rate Respiratory 20 Rate O2 Sat by Pulse 89 Oximetry Oxygen Devices in Use Now: Tracheostomy Collar - Nutrition: Malnutrition Diagnosis/Plan Malnutrition Assessment by Registered Dietitian: Malnutrition Assessment Clinical Characteristics Acute,Moderate Malnutrition Assessment: - 6.1% wt loss in past one month Criteria - mild temporal muscle wasting - intake likely <75% EEE x 7 days Malnutrition Assessment: 1. follow CAP MACHINE OPERATOR re-evaluation of swallowing Interventions function; NPO at this time 2. follow for potential need for PEG placement 3. offer and begin po supplements when pt ready for some level of po intake Malnutrition Assessment: Goals 1. when safe for po intake, pt will tolerate least-restrictive diet texture without evidence of swallowing difficulty or aspiration 2. adequate po intake to maintain present wt and hydration status 3. achieve and maintain serum electrolytes within normal ranges 4. achieve and maintain regulation of bowel pattern; no constipation (or diarrhea) Result Diagrams: 04/18/18 04:45 04/18/18 04:45 Additional Lab and Data: Laboratory Tests 04/16/18 04/17/18 04/17/18 20:22 07:53 09:30 POC Glucose (mg/dL) 147 H 67 L 117 H 04/17/18 12:28 POC Glucose (mg/dL) 71 Microbiology and Other Data: Diagnostic Imaging: Post-pacer CXR: no pneumo EKG Data: Telemetry, no VT, some sinus meño LifeVest interrogation shows it did not discharge Assess/Plan/Problems-Billing Mr. 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 who was admitted 03/01 after a tracheostomy and then underwent total laryngectomy 03/07 and post-operative acute AL, now in ICU after meño/asystole code on floor and s/p pacemaker - Patient Problems (1) Ventricular tachycardia Current Visit: Yes Status: Acute Priority: High Code(s): I47.2 - VENTRICULAR TACHYCARDIA SNOMED Code(s): 45357157 Comment: - Code did not involve VT - LifeVest has been removed - Pacer will act as event monitor if VT occurs (2) Anemia Current Visit: Yes Status: Acute Priority: Medium Code(s): D64.9 - ANEMIA , UNSPECIFIED SNOMED Code(s): 909106593 Comment: - improving a bit, stable - Iron deficient, likely from phlebotomy, oozing, CKD, now on iron PO (3) Laryngeal cancer Current Visit: Yes Status: Acute Priority: Medium Comment: - S/P tracheostomy and laryngectomy - stable today - will need further OT, speech, and resp therapy training to go home, or needs rehab (4) Diabetes mellitus Current Visit: Yes Status: Chronic Priority: Medium Code(s): E11.9 - TYPE 2 DIABETES MELLITUS WITHOUT COMPLICATIONS SNOMED Code(s): 76423532 Comment: - glucose still appears over-treated - BG ACHS, stop lantus and use lispro SS (5) HTN (hypertension) Current Visit: Yes Status: Chronic Priority: Medium Code(s): I10 - ESSENTIAL (PRIMARY) HYPERTENSION SNOMED Code(s): 51897024 Comment: - We have restarted beta nagi to lower BP, prevent VT, other tachy- arrhythmias - BP improved on norvasc (6) Tachycardia-bradycardia syndrome Current Visit: Yes Status: Acute Priority: Medium Code(s): I49.5 - SICK SINUS SYNDROME SNOMED Code(s): 37768108 Comment: -metoprolol started yesterday -Discussed with getachew Cobb from cardiac point of view for d/c Status and Disposition: Discussed with care planned, needs further OT/speech, or rehab that trains for trach
[2018-04-18] MEDS ORDERED: Insulin GLARGINE(*) 1 UNITS UNIT SUBCUT SCH (16:30)
[2018-04-18] MEDS: Atorvastatin* 40 MG TAB NG TUBE SCH (21:48)
[2018-04-18] MEDS: Cephalexin CAP* 250 MG PO SCH (21:48)
[2018-04-18] MEDS: Lidocaine Patch REMOVE* 1 NOTE MISC PATCH OFF SCH (21:51)
[2018-04-19] MEDS: Metoprolol Tartrate TAB* 25 MG PO SCH ×3 (00:35→15:58)
[2018-04-19 04:35] LABS: Hematocrit 25 % (42-52); Hemoglobin 8.5 g/dl (14.0-18.0); Mean Corpuscular HGB Conc 33 g/dl (31-36); Mean Corpuscular Hemoglobin 30 pg (27-31); Mean Corpuscular Volume 90 fL (80-94); Mean Platelet Volume 7.1 fL (7.4-10.4); Platelet Count 158 10^3/ul (150-450); Red Blood Count 2.83 10^6/ul (4.00-5.40); Red Cell Distribution Width 18 % (10.5-15); White Blood Count 7.1 10^3/ul (3.5-10.8)
[2018-04-19] MEDS: Cephalexin CAP* 250 MG PO SCH ×3 (09:30→19:51)
[2018-04-19] MEDS: Lactobacillus Acidophilus* 1 TAB PO SCH ×2 (09:31→19:51)
[2018-04-19] MEDS: Isosorbide Mononitrate ER TAB* 30 MG PO SCH (09:31)
[2018-04-19] MEDS: hydrALAZINE TAB* 25 MG PO SCH ×2 (09:31→19:51)
[2018-04-19] MEDS: metFORMIN* 500 MG TAB PO SCH ×2 (09:31→17:33)
[2018-04-19] MEDS: Amiodarone TAB* 200 MG PO SCH (09:32)
[2018-04-19] MEDS: Ferrous Gluconate TAB* 324 MG TAB PO SCH (09:32)
[2018-04-19] MEDS: Furosemide TAB* 20 MG PO SCH (09:32)
[2018-04-19] MEDS: amLODIPine TAB* 5 MG PO SCH ×2 (09:32→19:51)
[2018-04-19] MEDS: Aspirin 81 mg CHEW TAB* 81 MG TAB.CHEW PO SCH (09:32)
[2018-04-19] MEDS: Lidocaine PATCH 5%* 1 PATCH TRANSDERM SCH (09:33)
[2018-04-19] MEDS: Insulin LISPRO* 1 UNITS UNIT SUBCUT SCH ×4 (09:35→20:39)
[2018-04-19] MEDS: Atorvastatin* 40 MG TAB NG TUBE SCH (19:52)
[2018-04-19] MEDS: Lidocaine Patch REMOVE* 1 NOTE MISC PATCH OFF SCH (19:53)
--- NOTE | 2018-04-19 21:27 | ADMNOTE ---
Subjective Interval History: No interval events or new symptoms. Family History: Unchanged from Admission Social History: Unchanged from Admission Past Medical History: Unchanged from Admission Review of Systems - Measurements Intake and Output: Intake and Output Last 24 Hours 04/17/18 04/18/18 04/19/18 04/20/18 06:59 06:59 06:59 06:59 Intake Total 754 067 0411 1640 Output Total 925 1525 2175 1065 Balance -725 -1285 -555 575 Weight 147 lb 3.2 oz 139 lb 9.6 oz 140 lb 1.6 oz Intake: Oral 707 854 3556 1640 Output: Urine 925 1450 1975 1065 Coleman 75 200 Other: # Bowel Movements 1 Estimated Stool Amount Medium Objective Active Medications: Acetaminophen (Tylenol Tab*) 650 mg PO Q4H PRN PRN Reason: FEVER/HEADACHE Albuterol (Ventolin 2.5 Mg/3 Ml Neb.Leslie*) 2.5 mg INH Q4H PRN PRN Reason: SOB/WHEEZING Last Admin: 04/17/18 13:12 Dose: 2.5 mg Amiodarone HCl (Cordarone Tab*) 100 mg PO DAILY [facility] Last Admin: 04/19/18 09:32 Dose: 100 mg Amlodipine Besylate (Norvasc Tab*) 5 mg PO BID [facility] Last Admin: 04/19/18 19:51 Dose: 5 mg Aspirin (Aspirin 81 Mg Chew Tab*) 81 mg PO DAILY [facility] Last Admin: 04/19/18 09:32 Dose: 81 mg Atorvastatin Calcium (Lipitor*) 40 mg NG TUBE BEDTIME [facility] Last Admin: 04/19/18 19:52 Dose: 40 mg Atropine Sulfate (Atropine Syringe*) 0.5 mg IV PUSH ONCE PRN PRN Reason: bradycardia Bacitracin (Bacitracin Ointment*) 1 applic TOPICAL TID PRN PRN Reason: WOUND CARE Last Admin: 04/08/18 15:00 Dose: 1 applic Cephalexin HCl (Keflex Cap*) 250 mg PO TID [facility] Stop: 04/20/18 23:59 Last Admin: 04/19/18 19:51 Dose: 250 mg Dextrose (D50w Syringe 50 Ml*) 25 gm IV PUSH ONCE PRN PRN Reason: FS < 60 Last Admin: 04/18/18 01:58 Dose: 25 gm Docusate Sodium (Colace Cap*) 100 mg PO BID PRN PRN Reason: CONSTIPATION Last Admin: 04/17/18 18:10 Dose: 100 mg Ferrous Gluconate (Fergon Tab*) 324 mg PO DAILY [facility] Last Admin: 04/19/18 09:32 Dose: 324 mg Furosemide (Lasix Tab*) 20 mg PO DAILY [facility] Last Admin: 04/19/18 09:32 Dose: 20 mg Heparin Sodium (Porcine) (Heparin Flush Picc/Ml/Cvc(*)) 1 - 3 ml FLUSH 0600, 1800 [facility]; Protocol Last Admin: 04/19/18 17:36 Dose: 3 ml Hydralazine HCl (Apresoline Tab*) 25 mg PO BID [facility] Last Admin: 04/19/18 19:51 Dose: 25 mg Sodium Chloride (Ns 0.9% 1000 Ml) 1,000 mls @ 100 mls/hr IV PER RATE [facility] Insulin Human Lispro (Humalog*) 0 units SUBCUT ACHS [facility]; Protocol Last Admin: 04/19/18 20:39 Dose: 2 units Isosorbide Mononitrate (Imdur Er Tab*) 30 mg PO DAILY [facility] Last Admin: 04/19/18 09:31 Dose: 30 mg Lactobacillus Rhamnosus (Lactobacillus Acidophilus*) 1 tab PO BID [facility] Last Admin: 04/19/18 19:51 Dose: 1 tab Lidocaine (Lidoderm 5% Patch*) 2 patch TRANSDERM DAILY [facility] Last Admin: 04/19/18 09:33 Dose: 2 patch Metformin HCl (Glucophage*) 500 mg PO 0800,1700 [facility] Last Admin: 04/19/18 17:33 Dose: 500 mg Metoprolol Tartrate (Lopressor Tab*) 25 mg PO Q8H [facility] Last Admin: 04/19/18 15:58 Dose: 25 mg Morphine Sulfate (Morphine Vial*) 2 mg IV Q4H PRN PRN Reason: PAIN - MILD Last Admin: 04/15/18 06:40 Dose: 2 mg Ondansetron HCl (Zofran Inj*) 4 mg IV Q6H PRN PRN Reason: NAUSEA/VOMITING Last Admin: 04/16/18 06:57 Dose: 4 mg Oxycodone/Acetaminophen (Percocet 5/325 Tab*) 1 tab PO Q4H PRN PRN Reason: PAIN Last Admin: 04/17/18 08:15 Dose: 1 tab Pharmacy Profile Note (Lidocaine Patch Remove*) 2 note PATCH OFF [facility] Last Admin: 04/19/18 19:53 Dose: 2 note Senna (Senokot Tab*) 1 tab PO DAILY PRN PRN Reason: CONSTIPATION Last Admin: 04/17/18 18:10 Dose: 1 tab Vital Signs - 8 hr 04/19/18 04/19/18 04/19/18 15:36 16:00 19:37 Temperature 97.5 F 98.0 F Pulse Rate 60 59 Respiratory 20 18 Rate Blood Pressure 149/54 154/56 (mmHg) O2 Sat by Pulse 100 99 100 Oximetry Oxygen Devices in Use Now: Tracheostomy Collar Appearance: well appearing, playing cards Respiratory: Clear to Auscultation Abdominal: NL Sounds; No Tenderness; No Distention - Nutrition: Malnutrition Diagnosis/Plan Malnutrition Assessment by Registered Dietitian: Malnutrition Assessment Clinical Characteristics Acute,Moderate Malnutrition Assessment: - 6.1% wt loss in past one month Criteria - mild temporal muscle wasting - intake likely <75% EEE x 7 days Malnutrition Assessment: 1. follow DRAWING TENDER re-evaluation of swallowing Interventions function; NPO at this time 2. follow for potential need for PEG placement 3. offer and begin po supplements when pt ready for some level of po intake Malnutrition Assessment: Goals 1. when safe for po intake, pt will tolerate least-restrictive diet texture without evidence of swallowing difficulty or aspiration 2. adequate po intake to maintain present wt and hydration status 3. achieve and maintain serum electrolytes within normal ranges 4. achieve and maintain regulation of bowel pattern; no constipation (or diarrhea) Result Diagrams: 04/19/18 04:22 04/18/18 04:45 Additional Lab and Data: Laboratory Tests 04/16/18 04/17/18 04/17/18 20:22 07:53 09:30 POC Glucose (mg/dL) 147 H 67 L 117 H 04/17/18 12:28 POC Glucose (mg/dL) 71 Microbiology and Other Data: Diagnostic Imaging: Post-pacer CXR: no pneumo EKG Data: Telemetry, no VT, some sinus meño LifeVest interrogation shows it did not discharge Assess/Plan/Problems-Billing Mr. Maher is an 87 yo M with recurrent laryngeal SCC, HTN, afib, DM, and CAD s/ p CABG who was admitted 03/01 after a tracheostomy and then underwent total laryngectomy 03/07 and post-operative acute [place], now s/p ICU after meño/asystole code on floor and s/p pacemaker, pending discharge after finalizing tach care [facility]. - Patient Problems (1) Bleeding Current Visit: Yes Status: Acute Comment: - Patient continues to have recurrent episodes of bloody sputum from trach site. - Dr Clark instructed to stop suctioning patient as he should no longer need it. RT reports this cannot be discontinued as bloody sputum continues to clog trach and cause symptoms and patient agrees. - Bleeding suspected secondary to dual plt therapy which patient needs to remain on for 6 months given NSTEMI - Cardiology will be consulted tomorrow to discuss treatment plans (2) Tracheostomy complication Current Visit: Yes Status: Acute Code(s): J95.00 - UNSPECIFIED TRACHEOSTOMY COMPLICATION SNOMED Code(s): 38984445 Comment: -There is some bleeding of tracheostomy; increased bleeding from previous -D/W Dr. Stubbs -Will await further input -Coags and plt ct WNL -D/C pharmacologic DVT prophylaxis Status and Disposition: Discussed with care planned, needs further OT/speech, or rehab that trains for trach
[2018-04-20] MEDS: Metoprolol Tartrate TAB* 25 MG PO SCH ×3 (00:10→15:37)
[2018-04-20] MEDS: Insulin LISPRO* 1 UNITS UNIT SUBCUT SCH ×2 (08:35→12:36)
[2018-04-20] MEDS: metFORMIN* 500 MG TAB PO SCH ×2 (10:21→17:26)
[2018-04-20] MEDS: Amiodarone TAB* 200 MG PO SCH (10:21)
[2018-04-20] MEDS: Aspirin 81 mg CHEW TAB* 81 MG TAB.CHEW PO SCH (10:22)
[2018-04-20] MEDS: Cephalexin CAP* 250 MG PO SCH ×3 (10:22→21:46)
[2018-04-20] MEDS: amLODIPine TAB* 5 MG PO SCH (10:22)
[2018-04-20] MEDS: Ferrous Gluconate TAB* 324 MG TAB PO SCH (10:22)
[2018-04-20] MEDS: Furosemide TAB* 20 MG PO SCH (10:22)
[2018-04-20] MEDS: Lactobacillus Acidophilus* 1 TAB PO SCH ×2 (10:23→21:45)
[2018-04-20] MEDS: hydrALAZINE TAB* 25 MG PO SCH (10:23)
[2018-04-20] MEDS: Isosorbide Mononitrate ER TAB* 30 MG PO SCH (10:23)
[2018-04-20] MEDS: Lidocaine PATCH 5%* 1 PATCH TRANSDERM SCH (10:26)
--- NOTE | 2018-04-20 15:33 | PN ---
Subjective Interval History: No interval clinical changes. Pending outpatient supplies before discharge. Pt expresses frustration at wait. Family History: Unchanged from Admission Social History: Unchanged from Admission Past Medical History: Unchanged from Admission Objective Active Medications: Albuterol (Ventolin 2.5 Mg/3 Ml Neb.Leslie*) 2.5 mg INH Q4H PRN PRN Reason: SOB/WHEEZING Last Admin: 04/17/18 13:12 Dose: 2.5 mg Amiodarone HCl (Cordarone Tab*) 100 mg PO DAILY [facility] Last Admin: 04/20/18 10:21 Dose: 100 mg Aspirin (Aspirin 81 Mg Chew Tab*) 81 mg PO DAILY [facility] Last Admin: 04/20/18 10:22 Dose: 81 mg Atorvastatin Calcium (Lipitor*) 40 mg NG TUBE BEDTIME [facility] Last Admin: 04/19/18 19:52 Dose: 40 mg Atropine Sulfate (Atropine Syringe*) 0.5 mg IV PUSH ONCE PRN PRN Reason: bradycardia Bacitracin (Bacitracin Ointment*) 1 applic TOPICAL TID PRN PRN Reason: WOUND CARE Last Admin: 04/08/18 15:00 Dose: 1 applic Cephalexin HCl (Keflex Cap*) 250 mg PO TID [facility] Stop: 04/20/18 23:59 Last Admin: 04/20/18 15:37 Dose: 250 mg Ferrous Gluconate (Fergon Tab*) 324 mg PO DAILY [facility] Last Admin: 04/20/18 10:22 Dose: 324 mg Furosemide (Lasix Tab*) 20 mg PO DAILY [facility] Last Admin: 04/20/18 10:22 Dose: 20 mg Heparin Sodium (Porcine) (Heparin Flush Picc/Ml/Cvc(*)) 1 - 3 ml FLUSH 0600, 1800 [facility]; Protocol Last Admin: 04/20/18 05:06 Dose: 3 ml Isosorbide Mononitrate (Imdur Er Tab*) 30 mg PO DAILY [facility] Last Admin: 04/20/18 10:23 Dose: 30 mg Lactobacillus Rhamnosus (Lactobacillus Acidophilus*) 1 tab PO BID [facility] Last Admin: 04/20/18 10:23 Dose: 1 tab Lidocaine (Lidoderm 5% Patch*) 2 patch TRANSDERM DAILY [facility] Last Admin: 04/20/18 10:26 Dose: 2 patch Lisinopril (Prinivil Tab*) 10 mg PO BEDTIME [facility] Metformin HCl (Glucophage*) 500 mg PO 0800,1700 [facility] Last Admin: 04/20/18 10:21 Dose: 500 mg Metoprolol Tartrate (Lopressor Tab*) 25 mg PO Q8H [facility] Last Admin: 04/20/18 15:37 Dose: 25 mg Nifedipine (Procardia Xl Tab*) 60 mg PO BEDTIME [facility] Oxycodone/Acetaminophen (Percocet 5/325 Tab*) 1 tab PO Q4H PRN PRN Reason: PAIN Last Admin: 04/17/18 08:15 Dose: 1 tab Pharmacy Profile Note (Lidocaine Patch Remove*) 2 note PATCH OFF 2100 [facility] Last Admin: 04/19/18 19:53 Dose: 2 note Senna (Senokot Tab*) 1 tab PO DAILY PRN PRN Reason: CONSTIPATION Last Admin: 04/17/18 18:10 Dose: 1 tab Vital Signs - 8 hr 04/20/18 04/20/18 10:00 10:37 Temperature 97.7 F Pulse Rate 59 Respiratory 16 16 Rate Blood Pressure 158/53 (mmHg) O2 Sat by Pulse 100 100 Oximetry Oxygen Devices in Use Now: Tracheostomy Collar Ears/Nose/Mouth/Throat: - - dried blood over trach site Respiratory: Clear to Auscultation Cardiovascular: RRR - Nutrition: Malnutrition Diagnosis/Plan Malnutrition Assessment by Registered Dietitian: Malnutrition Assessment Clinical Characteristics Acute,Moderate Malnutrition Assessment: - 6.1% wt loss in past one month Criteria - mild temporal muscle wasting - intake likely <75% EEE x 7 days Malnutrition Assessment: 1. follow MILK SAMPLER re-evaluation of swallowing Interventions function; NPO at this time 2. follow for potential need for PEG placement 3. offer and begin po supplements when pt ready for some level of po intake Malnutrition Assessment: Goals 1. when safe for po intake, pt will tolerate least-restrictive diet texture without evidence of swallowing difficulty or aspiration 2. adequate po intake to maintain present wt and hydration status 3. achieve and maintain serum electrolytes within normal ranges 4. achieve and maintain regulation of bowel pattern; no constipation (or diarrhea) Result Diagrams: 04/19/18 04:22 04/18/18 04:45 Additional Lab and Data: Laboratory Tests 04/16/18 04/17/18 04/17/18 20:22 07:53 09:30 POC Glucose (mg/dL) 147 H 67 L 117 H 04/17/18 12:28 POC Glucose (mg/dL) 71 Microbiology and Other Data: Diagnostic Imaging: Post-pacer CXR: no pneumo EKG Data: Telemetry, no VT, some sinus meño LifeVest interrogation shows it did not discharge Assess/Plan/Problems-Billing Mr. Maher is an 87 yo M with recurrent laryngeal SCC, HTN, afib, DM, and CAD s/ p CABG who was admitted 03/01 after a tracheostomy and then underwent total laryngectomy 03/07 and post-operative acute MO, now s/p ICU after meño/asystole code on floor and s/p pacemaker, pending discharge after finalizing tach care [facility]. - Patient Problems (1) Tracheostomy complication Comment: There is some bleeding of tracheostomy - thought likely from DAPT, which patient should be on until August 2018 given recent MO. -D/W Dr. Stubbs - recommended to stop suctioning but RT recommends to continue with succtioning given bloody sputum clogging trach -D/C pharmacologic DVT prophylaxis (2) Myocardial infarction in recovery phase Comment: Extensive history of CAD, follows with [facility] as an outpatient. This admission with MO on 03/14/18 while recovering from surgery. - Per cardiology notes, patient elected medical management only given extensive comorbidities and recent surgery - Continue ASA, metoprolol, Imdur and atorvastatin - unclear why Plavix DC'ed - attempting to contact cardiology for clarification (3) Atrial fibrillation Comment: with sick sinus syndrome, tachy-meño syndrome, now s/p PPM by Dr. Rios on 04/17. Pt has declined anticoagulation previously for h/o afib. - on metoprolol tartrate q8h -> consider switching to succinated before DC - cont amiodarone 100mg daily (4) Acute systolic CHF (congestive heart failure) Current Visit: Yes Status: Acute Code(s): I50.21 - ACUTE SYSTOLIC ( CONGESTIVE) HEART FAILURE SNOMED Code(s): 055003680 Comment: EF 40-45%. Cr back at baseline. -Lasix 20 mg daily PO -no longer on home spironolactone - on bb, starting back on lisinopril given return to baseline kidney function (5) Diabetes mellitus Comment: Not sure why patient with such aggressive glucose treatment. Last A1c from 2 years ago was 6.8%. He was not on DM medications at home. - stop fingersticks and insulin sliding scale - rare use - may be able to DC metformin (prefer to stop given age and renal function), check A1c. Goal for this 87 year old patient is < 8% (6) HTN (hypertension) Comment: Will attempt to control on QD regimen. - DC amlo bid and hydralazine bid - start nifedipine 60mg tonight - start home lisinopril 10mg tonight - expect to see slight increase in Cr but this is preferred agent given h/o DM2 Status and Disposition: Discussed with care planned, needs further OT/speech, or rehab that trains for trach
[2018-04-20] MEDS ORDERED: NIFEdipine ER TAB* 60 MG PO SCH (21:00)
[2018-04-20] MEDS: Lisinopril TAB* 10 MG PO SCH (21:45)
[2018-04-20] MEDS: Atorvastatin* 40 MG TAB NG TUBE SCH (21:46)
[2018-04-20] MEDS: Lidocaine Patch REMOVE* 1 NOTE MISC PATCH OFF SCH (21:49)
[2018-04-21] MEDS: Metoprolol Tartrate TAB* 25 MG PO SCH ×3 (00:08→16:43)
[2018-04-21 04:27] LABS: ABS Basophils 0 10^3/ul (0-0.2); ABS Eosinophils 0.2 10^3/ul (0-0.6); ABS Lymphocytes 0.5 10^3/ul (1.0-4.8); ABS Monocytes 0.6 10^3/ul (0-0.8); ABS Neutrophils 5.9 10^3/ul (1.5-7.7); ABS Nucleated RBC 0 10^3/ul; Eosinophil % 2.5 %; Hematocrit 26 % (36-46); Hemoglobin 8.6 g/dL (14.0-18.0); Lymphocyte % 7.2 %; Mean Corpuscular HGB Conc 34 g/dL (31-36); Mean Corpuscular Hemoglobin 30 pg (27-31); Mean Corpuscular Volume 90 fL (80-94); Mean Platelet Volume 7.1 fL (7.4-10.4); Nucleated Red Blood Cells % 0; Platelet Count 175 10^3/uL (150-450); Red Blood Count 2.87 10^6 /uL (4.18-5.48); Red Cell Distribution Width 17 % (10.5-15); White Blood Count 7.2 10^3/uL (3.5-10.8)
[2018-04-21 04:47] LABS: BUN/Creatinine Ratio 20.3 (8-20); Calcium 8.3 mg/dL (8.6-10.3); EGFR African American 45.5 (>60); EGFR Non-African American 37.6 (>60); Magnesium 1.7 mg/dL (1.9-2.7); Potassium 3.9 mmol/L (3.5-5.0)
[2018-04-21] MEDS: metFORMIN* 500 MG TAB PO SCH ×2 (08:28→16:43)
[2018-04-21] MEDS: Aspirin 81 mg CHEW TAB* 81 MG TAB.CHEW PO SCH (08:28)
[2018-04-21] MEDS: Amiodarone TAB* 200 MG PO SCH (08:28)
[2018-04-21] MEDS: Lactobacillus Acidophilus* 1 TAB PO SCH ×2 (08:28→20:58)
[2018-04-21] MEDS: Lidocaine PATCH 5%* 1 PATCH TRANSDERM SCH (08:29)
[2018-04-21] MEDS: Ferrous Gluconate TAB* 324 MG TAB PO SCH (08:29)
[2018-04-21] MEDS: Isosorbide Mononitrate ER TAB* 30 MG PO SCH (08:29)
[2018-04-21] MEDS: Furosemide TAB* 20 MG PO SCH (08:29)
--- NOTE | 2018-04-21 18:53 | PN ---
Subjective Interval History: No clinical change. Optimized medications yesterday. For eg: stopped all diabetes medications - was on insulin and metformin with qid fingersticks but A1c is 5.6!!! Also reduced number of BP meds per day and switched to daily regimen - BPs now better controlled. Pt happy with changes. Still pending plan for trach supplies - may be mailed to home? Appreciate care management. Family History: Unchanged from Admission Social History: Unchanged from Admission Past Medical History: Unchanged from Admission Objective Active Medications: Albuterol (Ventolin 2.5 Mg/3 Ml Neb.Leslie*) 2.5 mg INH Q4H PRN PRN Reason: SOB/WHEEZING Last Admin: 04/17/18 13:12 Dose: 2.5 mg Amiodarone HCl (Cordarone Tab*) 100 mg PO DAILY [facility] Last Admin: 04/21/18 08:28 Dose: 100 mg Aspirin (Aspirin 81 Mg Chew Tab*) 81 mg PO DAILY [facility] Last Admin: 04/21/18 08:28 Dose: 81 mg Atorvastatin Calcium (Lipitor*) 40 mg NG TUBE BEDTIME [facility] Last Admin: 04/20/18 21:46 Dose: 40 mg Atropine Sulfate (Atropine Syringe*) 0.5 mg IV PUSH ONCE PRN PRN Reason: bradycardia Bacitracin (Bacitracin Ointment*) 1 applic TOPICAL TID PRN PRN Reason: WOUND CARE Last Admin: 04/08/18 15:00 Dose: 1 applic Ferrous Gluconate (Fergon Tab*) 324 mg PO DAILY [facility] Last Admin: 04/21/18 08:29 Dose: 324 mg Furosemide (Lasix Tab*) 20 mg PO DAILY [facility] Last Admin: 04/21/18 08:29 Dose: 20 mg Heparin Sodium (Porcine) (Heparin Flush Picc/Ml/Cvc(*)) 1 - 3 ml FLUSH 0600, 1800 [facility]; Protocol Last Admin: 04/21/18 16:43 Dose: 3 ml Isosorbide Mononitrate (Imdur Er Tab*) 30 mg PO DAILY [facility] Last Admin: 04/21/18 08:29 Dose: 30 mg Lactobacillus Rhamnosus (Lactobacillus Acidophilus*) 1 tab PO BID [facility] Last Admin: 04/21/18 08:28 Dose: 1 tab Lidocaine (Lidoderm 5% Patch*) 2 patch TRANSDERM DAILY [facility] Last Admin: 04/21/18 08:29 Dose: 2 patch Lisinopril (Prinivil Tab*) 10 mg PO BEDTIME [facility] Last Admin: 04/20/18 21:45 Dose: 10 mg Metoprolol Tartrate (Lopressor Tab*) 25 mg PO Q8H [facility] Last Admin: 04/21/18 16:43 Dose: 25 mg Nifedipine (Procardia Xl Tab*) 30 mg PO BEDTIME [facility] Oxycodone/Acetaminophen (Percocet 5/325 Tab*) 1 tab PO Q4H PRN PRN Reason: PAIN Last Admin: 04/17/18 08:15 Dose: 1 tab Pharmacy Profile Note (Lidocaine Patch Remove*) 2 note PATCH OFF 2100 [facility] Last Admin: 04/20/18 21:49 Dose: 2 note Senna (Senokot Tab*) 1 tab PO DAILY PRN PRN Reason: CONSTIPATION Last Admin: 04/17/18 18:10 Dose: 1 tab Vital Signs - 8 hr 04/21/18 15:41 Temperature 98.2 F Pulse Rate 60 Respiratory 14 Rate Blood Pressure 120/46 (mmHg) O2 Sat by Pulse 100 Oximetry Oxygen Devices in Use Now: Tracheostomy Collar - Nutrition: Malnutrition Diagnosis/Plan Malnutrition Assessment by Registered Dietitian: Malnutrition Assessment Clinical Characteristics Acute,Moderate Malnutrition Assessment: - 6.1% wt loss in past one month Criteria - mild temporal muscle wasting - intake likely <75% EEE x 7 days Malnutrition Assessment: 1. follow TILER'S ASSISTANT re-evaluation of swallowing Interventions function; NPO at this time 2. follow for potential need for PEG placement 3. offer and begin po supplements when pt ready for some level of po intake Malnutrition Assessment: Goals 1. when safe for po intake, pt will tolerate least-restrictive diet texture without evidence of swallowing difficulty or aspiration 2. adequate po intake to maintain present wt and hydration status 3. achieve and maintain serum electrolytes within normal ranges 4. achieve and maintain regulation of bowel pattern; no constipation (or diarrhea) Result Diagrams: 04/21/18 04:16 04/21/18 04:16 Additional Lab and Data: Laboratory Tests 04/16/18 04/17/18 04/17/18 20:22 07:53 09:30 POC Glucose (mg/dL) 147 H 67 L 117 H 04/17/18 12:28 POC Glucose (mg/dL) 71 Microbiology and Other Data: Diagnostic Imaging: Post-pacer CXR: no pneumo EKG Data: Telemetry, no VT, some sinus meño LifeVest interrogation shows it did not discharge Assess/Plan/Problems-Billing Mr. Maher is an 87M with recurrent laryngeal SCC, HTN, afib, DM, and CAD s/p CABG who was admitted 03/01 after a tracheostomy and then underwent total laryngectomy 03/07, with post-operative acute OK, now s/p ICU after meño/ asystole code on floor and s/p pacemaker, pending discharge after finalizing tach care plan. - Patient Problems (1) Tracheostomy complication Comment: There is some bleeding of tracheostomy - thought likely from DAPT, which patient should be on until August 2018 given recent OK. -D/W Dr. Stubbs - recommended to stop suctioning but RT recommends to continue with succtioning given bloody sputum clogging trach -D/C pharmacologic DVT prophylaxis (2) Myocardial infarction in recovery phase Comment: Extensive history of CAD, follows with [facility] as an outpatient. This admission with OK on 03/14/18 while recovering from surgery. - Per cardiology notes, patient elected medical management only given extensive comorbidities and recent surgery - Continue ASA, metoprolol, Imdur and atorvastatin - unclear why Plavix DC'ed - attempting to contact cardiology for clarification (3) Atrial fibrillation Comment: with sick sinus syndrome, tachy-meño syndrome, now s/p PPM by Dr. Rios on 04/17. Pt has declined anticoagulation previously for h/o afib. - on metoprolol tartrate q8h -> consider switching to succinated before DC - cont amiodarone 100mg daily (4) Acute systolic CHF (congestive heart failure) Comment: EF 40-45%. Cr back at baseline. -Lasix 20 mg daily PO -no longer on home spironolactone -on bb, tracey-i (5) Diabetes mellitus Comment: A1c 5.6% during admission. Was on no DM medications at home. - stop fingersticks and insulin sliding scale - rare use - goal for this 87 year old patient is < 8%, so medications not indicated (6) HTN (hypertension) Comment: Better controlled on once a day regimen. - cont nifedipine 30mg and lisinopril 10mg nightly Status and Disposition: Pending trach supplies from [place]. Still trying to track down supplies, then pt can return home.
[2018-04-21] MEDS: oxyCODONE/Acetamin 5/325 MG* TAB PO PRN (20:58)
[2018-04-21] MEDS: Lisinopril TAB* 10 MG PO SCH (20:58)
[2018-04-21] MEDS: NIFEdipine ER TAB* 30 MG PO SCH (20:58)
[2018-04-21] MEDS: Atorvastatin* 40 MG TAB NG TUBE SCH (20:58)
[2018-04-21] MEDS: Lidocaine Patch REMOVE* 1 NOTE MISC PATCH OFF SCH (20:59)
[2018-04-22] MEDS: Metoprolol Tartrate TAB* 25 MG PO SCH ×3 (00:10→16:53)
[2018-04-22] MEDS: Lactobacillus Acidophilus* 1 TAB PO SCH ×2 (08:58→22:15)
[2018-04-22] MEDS: Ferrous Gluconate TAB* 324 MG TAB PO SCH (08:58)
[2018-04-22] MEDS: Isosorbide Mononitrate ER TAB* 30 MG PO SCH (08:58)
[2018-04-22] MEDS: Amiodarone TAB* 200 MG PO SCH (08:58)
[2018-04-22] MEDS: Furosemide TAB* 20 MG PO SCH (08:58)
[2018-04-22] MEDS: Lidocaine PATCH 5%* 1 PATCH TRANSDERM SCH (08:59)
[2018-04-22] MEDS: Aspirin 81 mg CHEW TAB* 81 MG TAB.CHEW PO SCH (08:59)
--- NOTE | 2018-04-22 15:29 | PN ---
Subjective Date of Service: 04/22/18 Family History: Unchanged from Admission Social History: Unchanged from Admission Past Medical History: Unchanged from Admission Objective Active Medications: Albuterol (Ventolin 2.5 Mg/3 Ml Neb.Leslie*) 2.5 mg INH Q4H PRN PRN Reason: SOB/WHEEZING Last Admin: 04/17/18 13:12 Dose: 2.5 mg Amiodarone HCl (Cordarone Tab*) 100 mg PO DAILY [facility] Last Admin: 04/22/18 08:58 Dose: 100 mg Aspirin (Aspirin 81 Mg Chew Tab*) 81 mg PO DAILY [facility] Last Admin: 04/22/18 08:59 Dose: 81 mg Atorvastatin Calcium (Lipitor*) 40 mg NG TUBE BEDTIME [facility] Last Admin: 04/21/18 20:58 Dose: 40 mg Atropine Sulfate (Atropine Syringe*) 0.5 mg IV PUSH ONCE PRN PRN Reason: bradycardia Bacitracin (Bacitracin Ointment*) 1 applic TOPICAL TID PRN PRN Reason: WOUND CARE Last Admin: 04/08/18 15:00 Dose: 1 applic Ferrous Gluconate (Fergon Tab*) 324 mg PO DAILY [facility] Last Admin: 04/22/18 08:58 Dose: 324 mg Furosemide (Lasix Tab*) 20 mg PO DAILY [facility] Last Admin: 04/22/18 08:58 Dose: 20 mg Heparin Sodium (Porcine) (Heparin Flush Picc/Ml/Cvc(*)) 1 - 3 ml FLUSH 0600, 1800 [facility]; Protocol Last Admin: 04/22/18 05:45 Dose: 3 ml Isosorbide Mononitrate (Imdur Er Tab*) 30 mg PO DAILY [facility] Last Admin: 04/22/18 08:58 Dose: 30 mg Lactobacillus Rhamnosus (Lactobacillus Acidophilus*) 1 tab PO BID [facility] Last Admin: 04/22/18 08:58 Dose: 1 tab Lidocaine (Lidoderm 5% Patch*) 2 patch TRANSDERM DAILY [facility] Last Admin: 04/22/18 08:59 Dose: 2 patch Lisinopril (Prinivil Tab*) 10 mg PO BEDTIME [facility] Last Admin: 04/21/18 20:58 Dose: 10 mg Metoprolol Tartrate (Lopressor Tab*) 25 mg PO Q8H [facility] Last Admin: 04/22/18 08:58 Dose: 25 mg Nifedipine (Procardia Xl Tab*) 30 mg PO BEDTIME [facility] Last Admin: 04/21/18 20:58 Dose: 30 mg Pharmacy Profile Note (Lidocaine Patch Remove*) 2 note PATCH OFF 2100 [facility] Last Admin: 04/21/18 20:59 Dose: 2 note Senna (Senokot Tab*) 1 tab PO DAILY PRN PRN Reason: CONSTIPATION Last Admin: 04/17/18 18:10 Dose: 1 tab Vital Signs - 8 hr 04/22/18 04/22/18 04/22/18 08:00 11:21 11:33 Temperature 97.8 F Pulse Rate 59 Respiratory 16 18 Rate Blood Pressure 136/60 (mmHg) O2 Sat by Pulse 99 100 100 Oximetry 04/22/18 15:03 Temperature Pulse Rate Respiratory Rate Blood Pressure (mmHg) O2 Sat by Pulse 100 Oximetry Oxygen Devices in Use Now: Tracheostomy Collar Eyes: No Scleral Icterus Neck: NL Appearance and Movements; NL JVP Respiratory: - - bronchial breath sounds no wheezes Cardiovascular: NL Sounds; No Murmurs; No JVD Abdominal: NL Sounds; No Tenderness; No Distention Neurological: Alert and Oriented x 3 - Nutrition: Malnutrition Diagnosis/Plan Malnutrition Assessment by Registered Dietitian: Malnutrition Assessment Clinical Characteristics Acute,Moderate Malnutrition Assessment: - 6.1% wt loss in past one month Criteria - mild temporal muscle wasting - intake likely <75% EEE x 7 days Malnutrition Assessment: 1. follow HELIARC WELDER re-evaluation of swallowing Interventions function; NPO at this time 2. follow for potential need for PEG placement 3. offer and begin po supplements when pt ready for some level of po intake Malnutrition Assessment: Goals 1. when safe for po intake, pt will tolerate least-restrictive diet texture without evidence of swallowing difficulty or aspiration 2. adequate po intake to maintain present wt and hydration status 3. achieve and maintain serum electrolytes within normal ranges 4. achieve and maintain regulation of bowel pattern; no constipation (or diarrhea) Result Diagrams: 04/21/18 04:16 04/21/18 04:16 Additional Lab and Data: Laboratory Tests 04/16/18 04/17/18 04/17/18 20:22 07:53 09:30 POC Glucose (mg/dL) 147 H 67 L 117 H 04/17/18 12:28 POC Glucose (mg/dL) 71 Microbiology and Other Data: Diagnostic Imaging: Post-pacer CXR: no pneumo EKG Data: Telemetry, no VT, some sinus meño LifeVest interrogation shows it did not discharge Assess/Plan/Problems-Billing Mr. Maher is an 87M with recurrent laryngeal SCC, HTN, afib, DM, and CAD s/p CABG who was admitted 03/01 after a tracheostomy and then underwent total laryngectomy 03/07, with post-operative acute ID, now s/p ICU after meño/ asystole code on floor and s/p pacemaker, pending discharge after finalizing tach care plan. - Patient Problems (1) Tracheostomy complication Current Visit: Yes Status: Acute Code(s): J95.00 - UNSPECIFIED TRACHEOSTOMY COMPLICATION SNOMED Code(s): 16941527 Comment: There is some bleeding of tracheostomy - thought likely from DAPT, which patient should be on until August 2018 given recent ID. -D/W Dr. Stubbs - recommended to stop suctioning -D/C pharmacologic DVT prophylaxis -stable (2) Acute systolic CHF (congestive heart failure) Current Visit: Yes Status: Acute Code(s): I50.21 - ACUTE SYSTOLIC ( CONGESTIVE) HEART FAILURE SNOMED Code(s): 073714396 Comment: EF 40-45%. Cr back at baseline. -Lasix 20 mg daily PO -no longer on home spironolactone -on bb, tracey-i (3) Myocardial infarction in recovery phase Current Visit: Yes Status: Acute Code(s): I21.9 - ACUTE MYOCARDIAL INFARCTION, UNSPECIFIED SNOMED Code(s): 910429358 Comment: Extensive history of CAD, follows with [facility] as an outpatient. This admission with ID on 03/14/18 while recovering from surgery. - Per cardiology notes, patient elected medical management only given extensive comorbidities and recent surgery - Continue ASA, metoprolol, Imdur and atorvastatin (4) Atrial fibrillation Current Visit: Yes Status: Chronic Code(s): I48.91 - UNSPECIFIED ATRIAL FIBRILLATION SNOMED Code(s): 60095912 Comment: with sick sinus syndrome, tachy-meño syndrome, now s/p PPM by Dr. Rios on 04/17. Pt has declined anticoagulation previously for h/o afib. - on metoprolol tartrate q8h -> consider switching to succinated before DC - cont amiodarone 100mg daily (5) Diabetes mellitus Current Visit: Yes Status: Chronic Priority: Medium Code(s): E11.9 - TYPE 2 DIABETES MELLITUS WITHOUT COMPLICATIONS SNOMED Code(s): 02248464 Comment: A1c 5.6% during admission. Was on no DM medications at home. - stopped fingersticks and insulin sliding scale - rare use (6) HTN (hypertension) Current Visit: Yes Status: Chronic Priority: Medium Code(s): I10 - ESSENTIAL (PRIMARY) HYPERTENSION SNOMED Code(s): 87834143 Comment: Better controlled on once a day regimen. - cont nifedipine 30mg and lisinopril 10mg nightly Status and Disposition: Pending trach supplies from [place]. Still trying to track down supplies, then pt can return home.
[2018-04-22] MEDS: Lisinopril TAB* 10 MG PO SCH (22:14)
[2018-04-22] MEDS: Atorvastatin* 40 MG TAB NG TUBE SCH (22:15)
[2018-04-22] MEDS: NIFEdipine ER TAB* 30 MG PO SCH (22:15)
[2018-04-22] MEDS: Lidocaine Patch REMOVE* 1 NOTE MISC PATCH OFF SCH (22:16)
[2018-04-23] MEDS: Metoprolol Tartrate TAB* 25 MG PO SCH ×3 (00:25→16:03)
[2018-04-23 04:34] LABS: ABS Basophils 0.1 10^3/ul (0-0.2); ABS Eosinophils 0.2 10^3/ul (0-0.6); ABS Lymphocytes 0.6 10^3/ul (1.0-4.8); ABS Monocytes 0.7 10^3/ul (0-0.8); ABS Nucleated RBC 0 10^3/ul; Eosinophil % 2.4 %; Hematocrit 28 % (36-46); Hemoglobin 9.6 g/dL (14.0-18.0); Lymphocyte % 6.6 %; Mean Corpuscular HGB Conc 34 g/dL (31-36); Mean Corpuscular Hemoglobin 31 pg (27-31); Mean Corpuscular Volume 89 fL (80-94); Mean Platelet Volume 6.6 fL (7.4-10.4); Nucleated Red Blood Cells % 0; Platelet Count 199 10^3/uL (150-450); Red Blood Count 3.13 10^6 /uL (4.18-5.48); Red Cell Distribution Width 18 % (10.5-15); White Blood Count 8.5 10^3/uL (3.5-10.8)
[2018-04-23 04:56] LABS: BUN/Creatinine Ratio 23.4 (8-20); Calcium 8.7 mg/dL (8.6-10.3); EGFR African American 51.7 (>60); EGFR Non-African American 42.7 (>60); Potassium 4.1 mmol/L (3.5-5.0)
[2018-04-23] MEDS: Amiodarone TAB* 200 MG PO SCH (09:07)
[2018-04-23] MEDS: Furosemide TAB* 20 MG PO SCH (09:07)
[2018-04-23] MEDS: Isosorbide Mononitrate ER TAB* 30 MG PO SCH (09:07)
[2018-04-23] MEDS: Ferrous Gluconate TAB* 324 MG TAB PO SCH (09:08)
[2018-04-23] MEDS: Aspirin 81 mg CHEW TAB* 81 MG TAB.CHEW PO SCH (09:08)
[2018-04-23] MEDS: Lactobacillus Acidophilus* 1 TAB PO SCH ×2 (09:08→20:47)
[2018-04-23] MEDS: Lidocaine PATCH 5%* 1 PATCH TRANSDERM SCH (09:09)
--- NOTE | 2018-04-23 11:03 | PN ---
Subjective Date of Service: 04/23/18 Interval History: No acute events overnight Family History: Unchanged from Admission Social History: Unchanged from Admission Past Medical History: Unchanged from Admission Objective Active Medications: Albuterol (Ventolin 2.5 Mg/3 Ml Neb.Leslie*) 2.5 mg INH Q4H PRN PRN Reason: SOB/WHEEZING Last Admin: 04/17/18 13:12 Dose: 2.5 mg Amiodarone HCl (Cordarone Tab*) 100 mg PO DAILY [facility] Last Admin: 04/23/18 09:07 Dose: 100 mg Aspirin (Aspirin 81 Mg Chew Tab*) 81 mg PO DAILY [facility] Last Admin: 04/23/18 09:08 Dose: 81 mg Atorvastatin Calcium (Lipitor*) 40 mg NG TUBE BEDTIME [facility] Last Admin: 04/22/18 22:15 Dose: 40 mg Atropine Sulfate (Atropine Syringe*) 0.5 mg IV PUSH ONCE PRN PRN Reason: bradycardia Bacitracin (Bacitracin Ointment*) 1 applic TOPICAL TID PRN PRN Reason: WOUND CARE Last Admin: 04/08/18 15:00 Dose: 1 applic Ferrous Gluconate (Fergon Tab*) 324 mg PO DAILY [facility] Last Admin: 04/23/18 09:08 Dose: 324 mg Furosemide (Lasix Tab*) 20 mg PO DAILY [facility] Last Admin: 04/23/18 09:07 Dose: 20 mg Heparin Sodium (Porcine) (Heparin Flush Picc/Ml/Cvc(*)) 1 - 3 ml FLUSH 0600, 1800 [facility]; Protocol Last Admin: 04/23/18 05:54 Dose: 3 ml Isosorbide Mononitrate (Imdur Er Tab*) 30 mg PO DAILY [facility] Last Admin: 04/23/18 09:07 Dose: 30 mg Lactobacillus Rhamnosus (Lactobacillus Acidophilus*) 1 tab PO BID [facility] Last Admin: 04/23/18 09:08 Dose: 1 tab Lidocaine (Lidoderm 5% Patch*) 2 patch TRANSDERM DAILY [facility] Last Admin: 04/23/18 09:09 Dose: 2 patch Lisinopril (Prinivil Tab*) 10 mg PO BEDTIME [facility] Last Admin: 04/22/18 22:14 Dose: 10 mg Metoprolol Tartrate (Lopressor Tab*) 25 mg PO Q8H [facility] Last Admin: 04/23/18 09:08 Dose: 25 mg Nifedipine (Procardia Xl Tab*) 30 mg PO BEDTIME [facility] Last Admin: 04/22/18 22:15 Dose: 30 mg Pharmacy Profile Note (Lidocaine Patch Remove*) 2 note PATCH OFF 2100 [facility] Last Admin: 04/22/18 22:16 Dose: 2 note Senna (Senokot Tab*) 1 tab PO DAILY PRN PRN Reason: CONSTIPATION Last Admin: 04/17/18 18:10 Dose: 1 tab Vital Signs - 8 hr 04/23/18 04/23/18 04/23/18 03:13 04:00 07:30 Temperature 97.5 F 97.5 F Pulse Rate 60 59 Respiratory 16 18 Rate Blood Pressure 144/57 146/55 (mmHg) O2 Sat by Pulse 97 100 99 Oximetry 04/23/18 08:00 Temperature Pulse Rate Respiratory 18 Rate Blood Pressure (mmHg) O2 Sat by Pulse 98 Oximetry Oxygen Devices in Use Now: Nasal Cannula, Tracheostomy Collar Eyes: No Scleral Icterus Neck: - - trach collar Respiratory: Symmetrical Chest Expansion and Respiratory Effort, Clear to Auscultation Cardiovascular: NL Sounds; No Murmurs; No JVD Abdominal: NL Sounds; No Tenderness; No Distention Extremities: No Edema Neurological: Alert and Oriented x 3 - Nutrition: Malnutrition Diagnosis/Plan Malnutrition Assessment by Registered Dietitian: Malnutrition Assessment Clinical Characteristics Acute,Moderate Malnutrition Assessment: - 6.1% wt loss in past one month Criteria - mild temporal muscle wasting - intake likely <75% EEE x 7 days Malnutrition Assessment: 1. follow MODEL BUILDER DISPLAY re-evaluation of swallowing Interventions function; NPO at this time 2. follow for potential need for PEG placement 3. offer and begin po supplements when pt ready for some level of po intake Malnutrition Assessment: Goals 1. when safe for po intake, pt will tolerate least-restrictive diet texture without evidence of swallowing difficulty or aspiration 2. adequate po intake to maintain present wt and hydration status 3. achieve and maintain serum electrolytes within normal ranges 4. achieve and maintain regulation of bowel pattern; no constipation (or diarrhea) Result Diagrams: 04/23/18 04:25 04/23/18 04:25 Additional Lab and Data: Laboratory Tests 04/16/18 04/17/18 04/17/18 20:22 07:53 09:30 POC Glucose (mg/dL) 147 H 67 L 117 H 04/17/18 12:28 POC Glucose (mg/dL) 71 Microbiology and Other Data: Diagnostic Imaging: Post-pacer CXR: no pneumo EKG Data: Telemetry, no VT, some sinus meño LifeVest interrogation shows it did not discharge Assess/Plan/Problems-Billing Mr. Maher is an 87M with recurrent laryngeal SCC, HTN, afib, DM, and CAD s/p CABG who was admitted 03/01 after a tracheostomy and then underwent total laryngectomy 03/07, with post-operative acute AK, now s/p ICU after meño/ asystole code on floor and s/p pacemaker, pending discharge after finalizing tach care plan. - Patient Problems (1) Tracheostomy complication Current Visit: Yes Status: Acute Code(s): J95.00 - UNSPECIFIED TRACHEOSTOMY COMPLICATION SNOMED Code(s): 35983484 Comment: There is some bleeding of tracheostomy - thought likely from DAPT, which patient should be on until August 2018 given recent AK. -D/W Dr. Stubbs - recommended to stop suctioning -D/C pharmacologic DVT prophylaxis -stable (2) Acute systolic CHF (congestive heart failure) Current Visit: Yes Status: Acute Code(s): I50.21 - ACUTE SYSTOLIC ( CONGESTIVE) HEART FAILURE SNOMED Code(s): 223442152 Comment: EF 40-45%. Cr back at baseline. -Lasix 20 mg daily PO -no longer on home spironolactone -on bb, tracey-i (3) Myocardial infarction in recovery phase Current Visit: Yes Status: Acute Code(s): I21.9 - ACUTE MYOCARDIAL INFARCTION, UNSPECIFIED SNOMED Code(s): 680112803 Comment: Extensive history of CAD, follows with [facility] as an outpatient. This admission with AK on 03/14/18 while recovering from surgery. - Per cardiology notes, patient elected medical management only given extensive comorbidities and recent surgery - Continue ASA, metoprolol, Imdur and atorvastatin (4) Atrial fibrillation Current Visit: Yes Status: Chronic Code(s): I48.91 - UNSPECIFIED ATRIAL FIBRILLATION SNOMED Code(s): 85374569 Comment: with sick sinus syndrome, tachy-meño syndrome, now s/p PPM by Dr. Rios on 04/17. Pt has declined anticoagulation previously for h/o afib. - on metoprolol tartrate q8h -> consider switching to succinated before DC - cont amiodarone 100mg daily (5) Diabetes mellitus Current Visit: Yes Status: Chronic Priority: Medium Code(s): E11.9 - TYPE 2 DIABETES MELLITUS WITHOUT COMPLICATIONS SNOMED Code(s): 25534655 Comment: A1c 5.6% during admission. Was on no DM medications at home. - stopped fingersticks and insulin sliding scale - rare use (6) HTN (hypertension) Current Visit: Yes Status: Chronic Priority: Medium Code(s): I10 - ESSENTIAL (PRIMARY) HYPERTENSION SNOMED Code(s): 52286189 Comment: Better controlled on once a day regimen. - cont nifedipine 30mg and lisinopril 10mg nightly Status and Disposition: P[facility] supplies from [facility]. Still trying to track down supplies, then pt can return home.
[2018-04-23] MEDS: Lisinopril TAB* 10 MG PO SCH (20:47)
[2018-04-23] MEDS: NIFEdipine ER TAB* 30 MG PO SCH (20:47)
[2018-04-23] MEDS: Atorvastatin* 40 MG TAB NG TUBE SCH (20:47)
[2018-04-23] MEDS: Acetaminophen TAB* 325 MG PO PRN (20:51)
[2018-04-23] MEDS: Lidocaine Patch REMOVE* 1 NOTE MISC PATCH OFF SCH (21:08)
[2018-04-24] MEDS: Metoprolol Tartrate TAB* 25 MG PO SCH ×3 (00:13→15:41)
[2018-04-24 06:53] LABS: ABS Basophils 0.1 10^3/ul (0-0.2); ABS Eosinophils 0.2 10^3/ul (0-0.6); ABS Lymphocytes 0.4 10^3/ul (1.0-4.8); ABS Monocytes 0.6 10^3/ul (0-0.8); ABS Neutrophils 6.2 10^3/ul (1.5-7.7); ABS Nucleated RBC 0 10^3/ul; Eosinophil % 2.4 %; Hematocrit 27 % (36-46); Hemoglobin 9.1 g/dL (14.0-18.0); Lymphocyte % 5.8 %; Mean Corpuscular HGB Conc 34 g/dL (31-36); Mean Corpuscular Hemoglobin 30 pg (27-31); Mean Corpuscular Volume 89 fL (80-94); Mean Platelet Volume 7.4 fL (7.4-10.4); Nucleated Red Blood Cells % 0; Platelet Count 150 10^3/uL (150-450); Red Blood Count 3.04 10^6 /uL (4.18-5.48); Red Cell Distribution Width 18 % (10.5-15); White Blood Count 7.4 10^3/uL (3.5-10.8)
[2018-04-24 07:05] LABS: BUN/Creatinine Ratio 21.3 (8-20); Calcium 8.6 mg/dL (8.6-10.3); EGFR African American 46.5 (>60); EGFR Non-African American 38.4 (>60); Potassium 3.7 mmol/L (3.5-5.0)
[2018-04-24] MEDS: Ferrous Gluconate TAB* 324 MG TAB PO SCH (08:35)
[2018-04-24] MEDS: Isosorbide Mononitrate ER TAB* 30 MG PO SCH (08:35)
[2018-04-24] MEDS: Aspirin 81 mg CHEW TAB* 81 MG TAB.CHEW PO SCH (08:35)
[2018-04-24] MEDS: Lactobacillus Acidophilus* 1 TAB PO SCH ×2 (08:35→21:00)
[2018-04-24] MEDS: Furosemide TAB* 20 MG PO SCH (08:36)
[2018-04-24] MEDS: Amiodarone TAB* 200 MG PO SCH (08:36)
[2018-04-24] MEDS: Lidocaine PATCH 5%* 1 PATCH TRANSDERM SCH (08:42)
--- NOTE | 2018-04-24 17:40 | PN ---
Subjective Date of Service: 04/24/18 Interval History: Pt has no complaints today, denying CP, SOB, fever, cough, abd pain. He states that he is eating and drinking well. He is eager to be discharged. Family History: Unchanged from Admission Social History: Unchanged from Admission Past Medical History: Unchanged from Admission Objective Active Medications: Acetaminophen (Tylenol Tab*) 650 mg PO Q6H PRN Albuterol (Ventolin 2.5 Mg/3 Ml Neb.Leslie*) 2.5 mg INH Q4H PRN Amiodarone HCl (Cordarone Tab*) 100 mg PO DAILY DEBRA Aspirin (Aspirin 81 Mg Chew Tab*) 81 mg PO DAILY DEBRA Atorvastatin Calcium (Lipitor*) 40 mg NG TUBE BEDTIME DEBRA Atropine Sulfate (Atropine Syringe*) 0.5 mg IV PUSH ONCE PRN Bacitracin (Bacitracin Ointment*) 1 applic TOPICAL TID PRN Ferrous Gluconate (Fergon Tab*) 324 mg PO DAILY DEBRA Furosemide (Lasix Tab*) 20 mg PO DAILY DEBRA Heparin Sodium (Porcine) (Heparin Flush Picc/Ml/Cvc(*)) 1 - 3 ml FLUSH 0600, 1800 DEBRA; Protocol Isosorbide Mononitrate (Imdur Er Tab*) 30 mg PO DAILY DEBRA Lactobacillus Rhamnosus (Lactobacillus Acidophilus*) 1 tab PO BID DEBRA Lidocaine (Lidoderm 5% Patch*) 2 patch TRANSDERM DAILY DEBRA Lisinopril (Prinivil Tab*) 10 mg PO BEDTIME DEBRA Metoprolol Tartrate (Lopressor Tab*) 25 mg PO Q8H DEBRA Nifedipine (Procardia Xl Tab*) 30 mg PO BEDTIME DEBRA Pharmacy Profile Note (Lidocaine Patch Remove*) 2 note PATCH OFF 2100 DEBRA Senna (Senokot Tab*) 1 tab PO DAILY PRN Vital Signs: Temp Pulse Resp BP Pulse Ox 97.3 F 56 16 167/72 100 04/24/18 15:23 04/24/18 15:23 04/24/18 15:23 04/24/18 15:23 04/24/18 16:00 Oxygen Devices in Use Now: Tracheostomy Collar Appearance: Pt is sitting up in bed. He is in no acute distress. Eyes: No Scleral Icterus, PERRLA Ears/Nose/Mouth/Throat: NL Teeth, Lips, Gums, Clear Oropharnyx, Mucous Membranes Moist Neck: NL Appearance and Movements; NL JVP, Trachea Midline - Laryngectomy in place with no erythema, discharge Respiratory: Symmetrical Chest Expansion and Respiratory Effort, Clear to Auscultation Cardiovascular: NL Sounds; No Murmurs; No JVD, RRR Abdominal: NL Sounds; No Tenderness; No Distention, No Hepatosplenomegaly Extremities: No Clubbing, Cyanosis, - - B/l LE edema 2+ pitting Neurological: Alert and Oriented x 3 - Nutrition: Malnutrition Diagnosis/Plan Malnutrition Assessment by Registered Dietitian: Malnutrition Assessment Clinical Characteristics Acute,Moderate Malnutrition Assessment: - 6.1% wt loss in past one month Criteria - mild temporal muscle wasting - intake likely <75% EEE x 7 days Malnutrition Assessment: 1. follow RETINAL SURGEON re-evaluation of swallowing Interventions function; NPO at this time 2. follow for potential need for PEG placement 3. offer and begin po supplements when pt ready for some level of po intake Malnutrition Assessment: Goals 1. when safe for po intake, pt will tolerate least-restrictive diet texture without evidence of swallowing difficulty or aspiration 2. adequate po intake to maintain present wt and hydration status 3. achieve and maintain serum electrolytes within normal ranges 4. achieve and maintain regulation of bowel pattern; no constipation (or diarrhea) Result Diagrams: 04/24/18 06:25 04/24/18 06:00 Additional Lab and Data: Laboratory Tests 04/16/18 04/17/18 04/17/18 20:22 07:53 09:30 POC Glucose (mg/dL) 147 H 67 L 117 H 04/17/18 12:28 POC Glucose (mg/dL) 71 Microbiology and Other Data: Diagnostic Imaging: Post-pacer CXR: no pneumo EKG Data: Telemetry, no VT, some sinus meño LifeVest interrogation shows it did not discharge Assess/Plan/Problems-Billing Mr. Maher is an 87M with recurrent laryngeal SCC, HTN, afib, DM, and CAD s/p CABG who was admitted 03/01 after a tracheostomy and then underwent total laryngectomy 03/07, with post-operative acute [place], now s/p ICU after meño/ asystole code on floor and s/p pacemaker, pending discharge after finalizing trach care plan. - Patient Problems (1) Tracheostomy complication Comment: -Trach without bleeding today; likely from DAPT, which patient should be on until August 2018 given recent MO. -D/W Dr. Stubbs - recommended to stop suctioning -D/C pharmacologic DVT prophylaxis -Stable (2) Atrial fibrillation Comment: -Sick sinus syndrome, tachy-meño syndrome, s/p PPM by Dr. Rios on 04/17. Pt has declined anticoagulation previously for h/o afib. -Metoprolol tartrate q8h -> consider switching to succinated before DC -Cont amiodarone 100mg daily (3) HTN (hypertension) Comment: -140's during most of day -Continue nifedipine 30mg and lisinopril 10mg nightly -Monitor (4) Acute systolic CHF (congestive heart failure) Comment: -EF 40-45%. Cr back at baseline. LE edema 2+ -Lasix 20 mg daily PO -No longer on home spironolactone -On bb, tracey-i (5) Myocardial infarction in recovery phase Comment: Extensive history of CAD, follows with [facility]. This admission with [place] on 03/14/18 while recovering from surgery. -Per cardiology notes, patient elected medical management only given extensive comorbidities and recent surgery -Continue ASA, metoprolol, Imdur and atorvastatin (6) Diabetes mellitus Comment: -A1c 5.6% during admission and was on no DM medications at home -Stopped fingersticks and insulin sliding scale - rare use (7) Full code status Comment: Status and Disposition: Pending trach supplies from [place]. Still trying to track down supplies, then pt can return home.
[2018-04-24] MEDS: Lisinopril TAB* 10 MG PO SCH (21:00)
[2018-04-24] MEDS: Acetaminophen TAB* 325 MG PO PRN (21:00)
[2018-04-24] MEDS: Atorvastatin* 40 MG TAB NG TUBE SCH (21:00)
[2018-04-24] MEDS: Lidocaine Patch REMOVE* 1 NOTE MISC PATCH OFF SCH (21:00)
[2018-04-24] MEDS: NIFEdipine ER TAB* 30 MG PO SCH (21:00)
[2018-04-25 06:24] LABS: Hematocrit 26 % (36-46); Hemoglobin 9.3 g/dL (14.0-18.0)
[2018-04-25] MEDS: Furosemide TAB* 20 MG PO SCH (09:19)
[2018-04-25] MEDS: Metoprolol Tartrate TAB* 25 MG PO SCH ×3 (09:19→16:27)
[2018-04-25] MEDS: Amiodarone TAB* 200 MG PO SCH (09:20)
[2018-04-25] MEDS: Aspirin 81 mg CHEW TAB* 81 MG TAB.CHEW PO SCH (09:20)
[2018-04-25] MEDS: Isosorbide Mononitrate ER TAB* 30 MG PO SCH (09:20)
[2018-04-25] MEDS: Ferrous Gluconate TAB* 324 MG TAB PO SCH (09:20)
[2018-04-25] MEDS: Lactobacillus Acidophilus* 1 TAB PO SCH ×2 (09:20→20:29)
[2018-04-25] MEDS: Lidocaine PATCH 5%* 1 PATCH TRANSDERM SCH (09:21)
--- NOTE | 2018-04-25 17:54 | PN ---
Subjective Date of Service: 04/25/18 Interval History: Pt is sitting in bed. He states that he had a productive cough this morning. He states that this has subsided after the morning. Pt is feeling well with no complaints, and is very eager for discharge. Family History: Unchanged from Admission Social History: Unchanged from Admission Past Medical History: Unchanged from Admission Objective Active Medications: Acetaminophen (Tylenol Tab*) 650 mg PO Q6H PRN Albuterol (Ventolin 2.5 Mg/3 Ml Neb.Leslie*) 2.5 mg INH Q4H PRN Amiodarone HCl (Cordarone Tab*) 100 mg PO DAILY DEBRA Aspirin (Aspirin 81 Mg Chew Tab*) 81 mg PO DAILY DEBRA Atorvastatin Calcium (Lipitor*) 40 mg NG TUBE BEDTIME DEBRA Atropine Sulfate (Atropine Syringe*) 0.5 mg IV PUSH ONCE PRN Bacitracin (Bacitracin Ointment*) 1 applic TOPICAL TID PRN Ferrous Gluconate (Fergon Tab*) 324 mg PO DAILY DEBRA Furosemide (Lasix Tab*) 20 mg PO DAILY DEBRA Heparin Sodium (Porcine) (Heparin Flush Picc/Ml/Cvc(*)) 1 - 3 ml FLUSH 0600, 1800 DEBRA; Protocol Isosorbide Mononitrate (Imdur Er Tab*) 30 mg PO DAILY DEBRA Lactobacillus Rhamnosus (Lactobacillus Acidophilus*) 1 tab PO BID DEBRA Lidocaine (Lidoderm 5% Patch*) 2 patch TRANSDERM DAILY DEBRA Lisinopril (Prinivil Tab*) 10 mg PO BEDTIME DEBRA Metoprolol Tartrate (Lopressor Tab*) 25 mg PO Q8H DEBRA Nifedipine (Procardia Xl Tab*) 30 mg PO BEDTIME DEBRA Pharmacy Profile Note (Lidocaine Patch Remove*) 2 note PATCH OFF 2100 DEBRA Senna (Senokot Tab*) 1 tab PO DAILY PRN Vital Signs: Temp Pulse Resp BP Pulse Ox 97.5 F 60 20 151/61 99 04/25/18 15:54 04/25/18 15:54 04/25/18 15:54 04/25/18 15:54 04/25/18 15:54 Oxygen Devices in Use Now: Tracheostomy Collar Appearance: Pt is sitting in bed with legs elevated. He is in no acute distress. Eyes: No Scleral Icterus, PERRLA Ears/Nose/Mouth/Throat: NL Teeth, Lips, Gums, Mucous Membranes Moist Neck: NL Appearance and Movements; NL JVP, Trachea Midline Respiratory: Symmetrical Chest Expansion and Respiratory Effort, Clear to Auscultation Cardiovascular: NL Sounds; No Murmurs; No JVD, RRR Abdominal: NL Sounds; No Tenderness; No Distention, No Hepatosplenomegaly Extremities: No Clubbing, Cyanosis, - - B/L LE 2+ pitting - Nutrition: Malnutrition Diagnosis/Plan Malnutrition Assessment by Registered Dietitian: Malnutrition Assessment Clinical Characteristics Acute,Moderate Malnutrition Assessment: - 6.1% wt loss in past one month Criteria - mild temporal muscle wasting - intake likely <75% EEE x 7 days Malnutrition Assessment: 1. follow SUPERVISOR EVAPORATOR re-evaluation of swallowing Interventions function; NPO at this time 2. follow for potential need for PEG placement 3. offer and begin po supplements when pt ready for some level of po intake Malnutrition Assessment: Goals 1. when safe for po intake, pt will tolerate least-restrictive diet texture without evidence of swallowing difficulty or aspiration 2. adequate po intake to maintain present wt and hydration status 3. achieve and maintain serum electrolytes within normal ranges 4. achieve and maintain regulation of bowel pattern; no constipation (or diarrhea) Result Diagrams: 04/25/18 06:10 04/24/18 06:00 Additional Lab and Data: Laboratory Tests 04/16/18 04/17/18 04/17/18 20:22 07:53 09:30 POC Glucose (mg/dL) 147 H 67 L 117 H 04/17/18 12:28 POC Glucose (mg/dL) 71 Microbiology and Other Data: Diagnostic Imaging: Post-pacer CXR: no pneumo EKG Data: Telemetry, no VT, some sinus meño LifeVest interrogation shows it did not discharge Assess/Plan/Problems-Billing Mr. Maher is an 87M with recurrent laryngeal SCC, HTN, afib, DM, and CAD s/p CABG who was admitted 03/01 after a tracheostomy and then underwent total laryngectomy 03/07, with post-operative acute [place], now s/p ICU after meño/ asystole code on floor and s/p pacemaker, pending discharge after finalizing trach care plan. - Patient Problems (1) Tracheostomy complication Comment: -Trach without bleeding today -D/W Dr. Stubbs - recommended to stop suctioning -D/C pharmacologic DVT prophylaxis -Stable (2) Atrial fibrillation Comment: -Sick sinus syndrome, tachy-meño syndrome, s/p PPM by Dr. Rios on 04/17. Pt has declined anticoagulation previously for h/o afib. -Metoprolol tartrate q8h -> consider switching to succinated before DC -Cont amiodarone 100mg daily (3) HTN (hypertension) Comment: -140's during most of day -Continue nifedipine 30mg and lisinopril 10mg nightly -Monitor (4) Acute systolic CHF (congestive heart failure) Comment: -EF 40-45%. Cr back at baseline. LE edema 2+ -Lasix 20 mg daily PO -No longer on home spironolactone -On bb, tracey-i (5) Myocardial infarction in recovery phase Comment: -Extensive history of CAD, follows with [facility] as [facility]. This admission with [place] on 03/14/18 while recovering from surgery. -Per cardiology notes, patient elected medical management only given extensive comorbidities and recent surgery -Continue ASA, metoprolol, Imdur and atorvastatin (6) Diabetes mellitus Comment: -A1c 5.6% during admission and was on no DM medications at home -Stopped fingersticks and insulin sliding scale - rare use (7) Full code status Comment: Status and Disposition: Pending trach supplies from [place]. Still trying to track down supplies, then pt can return home.
[2018-04-25] MEDS: NIFEdipine ER TAB* 30 MG PO SCH (20:29)
[2018-04-25] MEDS: Lisinopril TAB* 10 MG PO SCH (20:30)
[2018-04-25] MEDS: Atorvastatin* 40 MG TAB NG TUBE SCH (20:30)
[2018-04-25] MEDS: Lidocaine Patch REMOVE* 1 NOTE MISC PATCH OFF SCH (20:32)
[2018-04-26] MEDS: Metoprolol Tartrate TAB* 25 MG PO SCH ×3 (01:01→15:55)
[2018-04-26] MEDS: Furosemide TAB* 20 MG PO SCH (08:54)
[2018-04-26] MEDS: Amiodarone TAB* 200 MG PO SCH (08:54)
[2018-04-26] MEDS: Isosorbide Mononitrate ER TAB* 30 MG PO SCH (08:54)
[2018-04-26] MEDS: Lidocaine PATCH 5%* 1 PATCH TRANSDERM SCH (08:54)
[2018-04-26] MEDS: Lactobacillus Acidophilus* 1 TAB PO SCH ×2 (08:55→21:10)
[2018-04-26] MEDS: Aspirin 81 mg CHEW TAB* 81 MG TAB.CHEW PO SCH (08:55)
[2018-04-26] MEDS: Ferrous Gluconate TAB* 324 MG TAB PO SCH (08:55)
--- NOTE | 2018-04-26 16:42 | PN ---
Subjective Date of Service: 04/26/18 Interval History: Pt states that he had one bout of dry coughing this afternoon that was short and nonproductive. He has no complaints, stating he just wants to go home. Family History: Unchanged from Admission Social History: Unchanged from Admission Past Medical History: Unchanged from Admission Objective Active Medications: Acetaminophen (Tylenol Tab*) 650 mg PO Q6H PRN Albuterol (Ventolin 2.5 Mg/3 Ml Neb.Leslie*) 2.5 mg INH Q4H PRN Amiodarone HCl (Cordarone Tab*) 100 mg PO DAILY DEBRA Aspirin (Aspirin 81 Mg Chew Tab*) 81 mg PO DAILY DEBRA Atorvastatin Calcium (Lipitor*) 40 mg NG TUBE BEDTIME DEBRA Atropine Sulfate (Atropine Syringe*) 0.5 mg IV PUSH ONCE PRN Bacitracin (Bacitracin Ointment*) 1 applic TOPICAL TID PRN Ferrous Gluconate (Fergon Tab*) 324 mg PO DAILY DEBRA Furosemide (Lasix Tab*) 20 mg PO DAILY DEBRA Heparin Sodium (Porcine) (Heparin Flush Picc/Ml/Cvc(*)) 1 - 3 ml FLUSH 0600, 1800 DEBRA; Protocol Isosorbide Mononitrate (Imdur Er Tab*) 30 mg PO DAILY DEBRA Lactobacillus Rhamnosus (Lactobacillus Acidophilus*) 1 tab PO BID DEBRA Lidocaine (Lidoderm 5% Patch*) 2 patch TRANSDERM DAILY DEBRA Lisinopril (Prinivil Tab*) 10 mg PO BEDTIME DEBRA Metoprolol Tartrate (Lopressor Tab*) 25 mg PO Q8H DEBRA Nifedipine (Procardia Xl Tab*) 30 mg PO BEDTIME [facility] Pharmacy Profile Note (Lidocaine Patch Remove*) 2 note PATCH OFF 2100 DEBRA Senna (Senokot Tab*) 1 tab PO DAILY PRN Vital Signs: Temp Pulse Resp BP Pulse Ox 97.8 F 60 20 141/61 100 04/26/18 11:18 04/26/18 11:18 04/26/18 11:18 04/26/18 11:18 04/26/18 12:46 Oxygen Devices in Use Now: Tracheostomy Collar Appearance: Pt is sitting in bed with his LE elevated. He is in no acute distress. Eyes: No Scleral Icterus, PERRLA Ears/Nose/Mouth/Throat: NL Teeth, Lips, Gums, Mucous Membranes Moist Neck: NL Appearance and Movements; NL JVP, Trachea Midline, - - Larygectomy CDI without erythema or discharge Respiratory: Symmetrical Chest Expansion and Respiratory Effort, Clear to Auscultation Cardiovascular: NL Sounds; No Murmurs; No JVD, RRR, - - Pacemaker site nontender with old ecchymosis Abdominal: NL Sounds; No Tenderness; No Distention, No Hepatosplenomegaly Extremities: No Clubbing, Cyanosis, - - B/l LE pedal edema 2+ with trace edema to mcc to knee Neurological: Alert and Oriented x 3 - Nutrition: Malnutrition Diagnosis/Plan Malnutrition Assessment by Registered Dietitian: Malnutrition Assessment Clinical Characteristics Acute,Moderate Malnutrition Assessment: - 6.1% wt loss in past one month Criteria - mild temporal muscle wasting - intake likely <75% EEE x 7 days Malnutrition Assessment: 1. follow PRINTING PRESS MACHINIST re-evaluation of swallowing Interventions function; NPO at this time 2. follow for potential need for PEG placement 3. offer and begin po supplements when pt ready for some level of po intake Malnutrition Assessment: Goals 1. when safe for po intake, pt will tolerate least-restrictive diet texture without evidence of swallowing difficulty or aspiration 2. adequate po intake to maintain present wt and hydration status 3. achieve and maintain serum electrolytes within normal ranges 4. achieve and maintain regulation of bowel pattern; no constipation (or diarrhea) Result Diagrams: 04/25/18 06:10 04/24/18 06:00 Additional Lab and Data: Laboratory Tests 04/16/18 04/17/18 04/17/18 20:22 07:53 09:30 POC Glucose (mg/dL) 147 H 67 L 117 H 04/17/18 12:28 POC Glucose (mg/dL) 71 Microbiology and Other Data: Diagnostic Imaging: Post-pacer CXR: no pneumo EKG Data: Telemetry, no [place], some sinus meño LifeVest interrogation shows it did not discharge Assess/Plan/Problems-Billing Mr. Maher is an 87M with recurrent laryngeal SCC, HTN, afib, DM, and CAD s/p CABG who was admitted 03/01 after a tracheostomy and then underwent total laryngectomy 03/07, with post-operative acute [place], now s/p ICU after meño/ asystole code on floor and s/p pacemaker, pending discharge after finalizing trach care plan. - Patient Problems (1) Tracheostomy complication Comment: -Trach without bleeding last 2 days -Evelyne recommended stop suctioning in past and d/c pharm DVT ppx -Stable and awaiting supplies for discharge (2) Atrial fibrillation Comment: -Sick sinus syndrome, tachy-meño syndrome, s/p PPM by Dr. Rios on 04/17. Pt has declined anticoagulation previously for h/o afib. -Metoprolol tartrate q8h -> consider switching to succinated before DC -Cont amiodarone 100mg daily (3) HTN (hypertension) Comment: -140's during most of day -Continue nifedipine 30mg and lisinopril 10mg nightly -Monitor (4) Acute systolic CHF (congestive heart failure) Comment: -EF 40-45%. Cr back at baseline. LE edema 2+ -Lasix 20 mg daily PO -No longer on home spironolactone -On bb, tracey-i (5) Myocardial infarction in recovery phase Comment: -Extensive history of CAD, follows with [facility] as an outpatient. This admission with [place] on 03/14/18 while recovering from surgery. -Per cardiology notes, patient elected medical management only given extensive comorbidities and recent surgery -Continue ASA, metoprolol, Imdur and atorvastatin (6) Diabetes mellitus Comment: -A1c 5.6% during admission and was on no DM medications at home -Stopped fingersticks and insulin sliding scale - rare use (7) Full code status Comment: Status and Disposition: Pending trach supplies from [place]. Still trying to track down supplies, then pt can return home.
[2018-04-26] MEDS: Lidocaine Patch REMOVE* 1 NOTE MISC PATCH OFF SCH (21:09)
[2018-04-26] MEDS: Atorvastatin* 40 MG TAB NG TUBE SCH (21:10)
[2018-04-26] MEDS: Lisinopril TAB* 10 MG PO SCH (21:10)
[2018-04-26] MEDS: NIFEdipine ER TAB* 30 MG PO SCH (21:10)
[2018-04-27] MEDS: Metoprolol Tartrate TAB* 25 MG PO SCH ×3 (01:20→16:25)
[2018-04-27] MEDS: Amiodarone TAB* 200 MG PO SCH (09:34)
[2018-04-27] MEDS: Furosemide TAB* 20 MG PO SCH (09:34)
[2018-04-27] MEDS: Isosorbide Mononitrate ER TAB* 30 MG PO SCH (09:35)
[2018-04-27] MEDS: Aspirin 81 mg CHEW TAB* 81 MG TAB.CHEW PO SCH (09:35)
[2018-04-27] MEDS: Ferrous Gluconate TAB* 324 MG TAB PO SCH (09:35)
[2018-04-27] MEDS: Lactobacillus Acidophilus* 1 TAB PO SCH ×2 (09:35→20:37)
[2018-04-27] MEDS: Lidocaine PATCH 5%* 1 PATCH TRANSDERM SCH (09:43)
--- NOTE | 2018-04-27 16:27 | PN ---
Subjective Date of Service: 04/27/18 Interval History: Frustrated with length of stay Discussed efforts to get necessary materials and laryngectomy tube he has no other complaints Family History: Unchanged from Admission Social History: Unchanged from Admission Past Medical History: Unchanged from Admission Objective Active Medications: Acetaminophen (Tylenol Tab*) 650 mg PO Q6H PRN PRN Reason: pain/fever Last Admin: 04/24/18 21:00 Dose: 650 mg Albuterol (Ventolin 2.5 Mg/3 Ml Neb.Leslie*) 2.5 mg INH Q4H PRN PRN Reason: SOB/WHEEZING Last Admin: 04/17/18 13:12 Dose: 2.5 mg Amiodarone HCl (Cordarone Tab*) 100 mg PO DAILY [facility] Last Admin: 04/27/18 09:34 Dose: 100 mg Aspirin (Aspirin 81 Mg Chew Tab*) 81 mg PO DAILY [facility] Last Admin: 04/27/18 09:35 Dose: 81 mg Atorvastatin Calcium (Lipitor*) 40 mg NG TUBE BEDTIME [facility] Last Admin: 04/26/18 21:10 Dose: 40 mg Atropine Sulfate (Atropine Syringe*) 0.5 mg IV PUSH ONCE PRN PRN Reason: bradycardia Bacitracin (Bacitracin Ointment*) 1 applic TOPICAL TID PRN PRN Reason: WOUND CARE Last Admin: 04/08/18 15:00 Dose: 1 applic Ferrous Gluconate (Fergon Tab*) 324 mg PO DAILY [facility] Last Admin: 04/27/18 09:35 Dose: 324 mg Furosemide (Lasix Tab*) 20 mg PO DAILY [facility] Last Admin: 04/27/18 09:34 Dose: 20 mg Heparin Sodium (Porcine) (Heparin Flush Picc/Ml/Cvc(*)) 1 - 3 ml FLUSH 0600, 1800 [facility]; Protocol Last Admin: 04/27/18 06:23 Dose: 3 ml Isosorbide Mononitrate (Imdur Er Tab*) 30 mg PO DAILY [facility] Last Admin: 04/27/18 09:35 Dose: 30 mg Lactobacillus Rhamnosus (Lactobacillus Acidophilus*) 1 tab PO BID [facility] Last Admin: 04/27/18 09:35 Dose: 1 tab Lidocaine (Lidoderm 5% Patch*) 2 patch TRANSDERM DAILY [facility] Last Admin: 04/27/18 09:43 Dose: 2 patch Lisinopril (Prinivil Tab*) 10 mg PO BEDTIME [facility] Last Admin: 04/26/18 21:10 Dose: 10 mg Metoprolol Tartrate (Lopressor Tab*) 25 mg PO Q8H [facility] Last Admin: 04/27/18 09:35 Dose: 25 mg Nifedipine (Procardia Xl Tab*) 30 mg PO BEDTIME [facility] Last Admin: 04/26/18 21:10 Dose: 30 mg Pharmacy Profile Note (Lidocaine Patch Remove*) 2 note PATCH OFF 2100 [facility] Last Admin: 04/26/18 21:09 Dose: 2 note Senna (Senokot Tab*) 1 tab PO DAILY PRN PRN Reason: CONSTIPATION Last Admin: 04/17/18 18:10 Dose: 1 tab Vital Signs - 8 hr 04/27/18 04/27/18 11:36 15:57 Temperature 97.4 F 98.1 F Pulse Rate 60 59 Respiratory 20 Rate Blood Pressure 145/55 152/71 (mmHg) O2 Sat by Pulse 100 100 Oximetry Oxygen Devices in Use Now: Tracheostomy Collar Appearance: sitting up in bed, playing cards, NAD Eyes: No Scleral Icterus, PERRLA Ears/Nose/Mouth/Throat: NL Teeth, Lips, Gums, - - trach site c/d/i Respiratory: Symmetrical Chest Expansion and Respiratory Effort, Clear to Auscultation Cardiovascular: NL Sounds; No Murmurs; No JVD, RRR Abdominal: NL Sounds; No Tenderness; No Distention Lymphatic: No Cervical Adenopathy Extremities: - - 2+ le edema, lower legs wrapped Neurological: Alert and Oriented x 3 - Nutrition: Malnutrition Diagnosis/Plan Malnutrition Assessment by Registered Dietitian: Malnutrition Assessment Clinical Characteristics Acute,Moderate Malnutrition Assessment: - 6.1% wt loss in past one month Criteria - mild temporal muscle wasting - intake likely <75% EEE x 7 days Malnutrition Assessment: 1. follow ELECTRO PLATER re-evaluation of swallowing Interventions function; NPO at this time 2. follow for potential need for PEG placement 3. offer and begin po supplements when pt ready for some level of po intake Malnutrition Assessment: Goals 1. when safe for po intake, pt will tolerate least-restrictive diet texture without evidence of swallowing difficulty or aspiration 2. adequate po intake to maintain present wt and hydration status 3. achieve and maintain serum electrolytes within normal ranges 4. achieve and maintain regulation of bowel pattern; no constipation (or diarrhea) Result Diagrams: 04/25/18 06:10 04/24/18 06:00 Additional Lab and Data: Laboratory Tests 04/16/18 04/17/18 04/17/18 20:22 07:53 09:30 POC Glucose (mg/dL) 147 H 67 L 117 H 04/17/18 12:28 POC Glucose (mg/dL) 71 Microbiology and Other Data: Diagnostic Imaging: Post-pacer CXR: no pneumo EKG Data: Telemetry, no [place], some sinus meño LifeVest interrogation shows it did not discharge Assess/Plan/Problems-Billing Mr. Maher is an 87M with recurrent laryngeal SCC, HTN, afib, DM, and CAD s/p CABG who was admitted 03/01 after a tracheostomy and then underwent total laryngectomy 03/07, with post-operative acute [place] and ICU stay s/p meño/ asystole code on floor and s/p pacemaker pending discharge after finalizing trach care plan. - Patient Problems (1) Acute systolic CHF (congestive heart failure) Comment: Resolved -EF 40-45%. Cr back at baseline. LE edema 2+ -Lasix 20 mg daily PO -No longer on home spironolactone -On bb, tracey-i (2) Atrial fibrillation Comment: -Sick sinus syndrome, tachy-meño syndrome, s/p PPM by Dr. Rios on 04/17. Pt has declined anticoagulation previously for h/o afib. -Metoprolol tartrate q8h -> consider switching to succinated before DC -Cont amiodarone 100mg daily (3) Diabetes mellitus Comment: -A1c 5.6% during admission and was on no DM medications at home -Stopped fingersticks and insulin sliding scale - rare use (4) Myocardial infarction in recovery phase Comment: -Extensive history of CAD, follows with [facility] as an outpatient. This admission with [place] on 03/14/18 while recovering from surgery. -Per cardiology notes, patient elected medical management only given extensive comorbidities and recent surgery -Continue ASA, metoprolol, Imdur and atorvastatin (5) Tracheostomy complication Comment: -Discussed with client services administrator attraction attendant (Erlinda Crabtree) and [facility] will purchase the $150 trach tube that has been pending for weeks to expedite discharge. [employer] is working with [facility] currently to place order and have delivered -Trach without bleeding -Strominger recommended stop suctioning in past and d/c pharm DVT ppx -Stable and awaiting supplies for discharge Status and Disposition: [place] supplies from [place]. Still trying to track down supplies, then pt can return home.
[2018-04-27] MEDS: NIFEdipine ER TAB* 30 MG PO SCH (20:36)
[2018-04-27] MEDS: Atorvastatin* 40 MG TAB NG TUBE SCH (20:37)
[2018-04-27] MEDS: Lisinopril TAB* 10 MG PO SCH (20:37)
[2018-04-27] MEDS: Lidocaine Patch REMOVE* 1 NOTE MISC PATCH OFF SCH (20:39)
[2018-04-28] MEDS: Metoprolol Tartrate TAB* 25 MG PO SCH ×3 (00:28→16:01)
[2018-04-28] MEDS: Isosorbide Mononitrate ER TAB* 30 MG PO SCH (08:50)
[2018-04-28] MEDS: Furosemide TAB* 20 MG PO SCH (08:50)
[2018-04-28] MEDS: Aspirin 81 mg CHEW TAB* 81 MG TAB.CHEW PO SCH (08:51)
[2018-04-28] MEDS: Amiodarone TAB* 200 MG PO SCH (08:51)
[2018-04-28] MEDS: Lidocaine PATCH 5%* 1 PATCH TRANSDERM SCH (08:52)
[2018-04-28] MEDS: Ferrous Gluconate TAB* 324 MG TAB PO SCH (08:52)
[2018-04-28] MEDS: Lactobacillus Acidophilus* 1 TAB PO SCH ×2 (08:52→20:49)
--- NOTE | 2018-04-28 15:39 | PN ---
Subjective Date of Service: 04/28/18 Interval History: No complaints No CP, SOB, N/V Discussed progress with getting supplies with pt who is appreciative Family History: Unchanged from Admission Social History: Unchanged from Admission Past Medical History: Unchanged from Admission Objective Active Medications: Acetaminophen (Tylenol Tab*) 650 mg PO Q6H PRN PRN Reason: pain/fever Last Admin: 04/24/18 21:00 Dose: 650 mg Albuterol (Ventolin 2.5 Mg/3 Ml Neb.Leslie*) 2.5 mg INH Q4H PRN PRN Reason: SOB/WHEEZING Last Admin: 04/17/18 13:12 Dose: 2.5 mg Amiodarone HCl (Cordarone Tab*) 100 mg PO DAILY [facility] Last Admin: 04/28/18 08:51 Dose: 100 mg Aspirin (Aspirin 81 Mg Chew Tab*) 81 mg PO DAILY [facility] Last Admin: 04/28/18 08:51 Dose: 81 mg Atorvastatin Calcium (Lipitor*) 40 mg NG TUBE BEDTIME [facility] Last Admin: 04/27/18 20:37 Dose: 40 mg Atropine Sulfate (Atropine Syringe*) 0.5 mg IV PUSH ONCE PRN PRN Reason: bradycardia Bacitracin (Bacitracin Ointment*) 1 applic TOPICAL TID PRN PRN Reason: WOUND CARE Last Admin: 04/08/18 15:00 Dose: 1 applic Ferrous Gluconate (Fergon Tab*) 324 mg PO DAILY [facility] Last Admin: 04/28/18 08:52 Dose: 324 mg Furosemide (Lasix Tab*) 20 mg PO DAILY [facility] Last Admin: 04/28/18 08:50 Dose: 20 mg Heparin Sodium (Porcine) (Heparin Flush Picc/Ml/Cvc(*)) 1 - 3 ml FLUSH 0600, 1800 [facility]; Protocol Last Admin: 04/28/18 05:13 Dose: 3 ml Isosorbide Mononitrate (Imdur Er Tab*) 30 mg PO DAILY [facility] Last Admin: 04/28/18 08:50 Dose: 30 mg Lactobacillus Rhamnosus (Lactobacillus Acidophilus*) 1 tab PO BID [facility] Last Admin: 04/28/18 08:52 Dose: 1 tab Lidocaine (Lidoderm 5% Patch*) 2 patch TRANSDERM DAILY [facility] Last Admin: 04/28/18 08:52 Dose: 2 patch Lisinopril (Prinivil Tab*) 10 mg PO BEDTIME [facility] Last Admin: 04/27/18 20:37 Dose: 10 mg Metoprolol Tartrate (Lopressor Tab*) 25 mg PO Q8H [facility] Last Admin: 04/28/18 08:52 Dose: 25 mg Nifedipine (Procardia Xl Tab*) 30 mg PO BEDTIME [facility] Last Admin: 04/27/18 20:36 Dose: 30 mg Pharmacy Profile Note (Lidocaine Patch Remove*) 2 note PATCH OFF 2100 [facility] Last Admin: 04/27/18 20:39 Dose: 2 note Senna (Senokot Tab*) 1 tab PO DAILY PRN PRN Reason: CONSTIPATION Last Admin: 04/17/18 18:10 Dose: 1 tab Vital Signs - 8 hr 04/28/18 04/28/18 04/28/18 08:00 08:34 08:50 Temperature 98.0 F Pulse Rate 60 59 Respiratory 14 18 Rate Blood Pressure 138/56 (mmHg) O2 Sat by Pulse 98 100 98 Oximetry 04/28/18 04/28/18 04/28/18 11:38 11:45 11:48 Temperature 97.6 F Pulse Rate 59 Respiratory 20 Rate Blood Pressure 150/64 159/71 150/64 (mmHg) O2 Sat by Pulse 100 Oximetry 04/28/18 15:06 Temperature 97.1 F Pulse Rate 60 Respiratory 16 Rate Blood Pressure 161/68 (mmHg) O2 Sat by Pulse 100 Oximetry Oxygen Devices in Use Now: Tracheostomy Collar Appearance: NAD Eyes: No Scleral Icterus, PERRLA Ears/Nose/Mouth/Throat: NL Teeth, Lips, Gums, Clear Oropharnyx Neck: NL Appearance and Movements; NL JVP, Trachea Midline Respiratory: Symmetrical Chest Expansion and Respiratory Effort, Clear to Auscultation Cardiovascular: RRR Abdominal: NL Sounds; No Tenderness; No Distention Lymphatic: No Cervical Adenopathy Extremities: No Edema Skin: No Rash or Ulcers Neurological: Alert and Oriented x 3 Lines/Tubes/Other Access: Clean, Dry and Intact Tracheostomy - c/d/i - Nutrition: Malnutrition Diagnosis/Plan Malnutrition Assessment by Registered Dietitian: Malnutrition Assessment Clinical Characteristics Acute,Moderate Malnutrition Assessment: - 6.1% wt loss in past one month Criteria - mild temporal muscle wasting - intake likely <75% EEE x 7 days Malnutrition Assessment: 1. follow LOCKSTITCH ZIPPER SETTER re-evaluation of swallowing Interventions function; NPO at this time 2. follow for potential need for PEG placement 3. offer and begin po supplements when pt ready for some level of po intake Malnutrition Assessment: Goals 1. when safe for po intake, pt will tolerate least-restrictive diet texture without evidence of swallowing difficulty or aspiration 2. adequate po intake to maintain present wt and hydration status 3. achieve and maintain serum electrolytes within normal ranges 4. achieve and maintain regulation of bowel pattern; no constipation (or diarrhea) Result Diagrams: 04/25/18 06:10 04/24/18 06:00 Additional Lab and Data: Laboratory Tests 04/16/18 04/17/18 04/17/18 20:22 07:53 09:30 POC Glucose (mg/dL) 147 H 67 L 117 H 04/17/18 12:28 POC Glucose (mg/dL) 71 Microbiology and Other Data: Diagnostic Imaging: Post-pacer CXR: no pneumo EKG Data: Telemetry, no VT, some sinus meño LifeVest interrogation shows it did not discharge Assess/Plan/Problems-Billing Mr. Maher is an 87M with recurrent laryngeal SCC, HTN, afib, DM, and CAD s/p CABG who was admitted 03/01 after a tracheostomy and then underwent total laryngectomy 03/07, with post-operative acute [place] and ICU stay s/p meño/ asystole code on floor and s/p pacemaker pending discharge after finalizing trach care plan. - Patient Problems (1) Acute systolic CHF (congestive heart failure) Comment: Resolved -EF 40-45%. 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 Pt has declined anticoagulation previously for h/o afib. -Metoprolol tartrate q8h -> increase to 100mg succinate tomorrow -Cont amiodarone 100mg daily (3) Diabetes mellitus Comment: -A1c 5.6% during admission and was on no DM medications at home -Stopped fingersticks and insulin sliding scale - rare use (4) Myocardial infarction in recovery phase Comment: -Extensive history of CAD, follows with [facility] as an outpatient. This admission with [place] on 03/14/18 while recovering from surgery. -Per cardiology notes, patient elected medical management only given extensive comorbidities and recent surgery -Continue ASA, metoprolol, Imdur and atorvastatin (5) Tracheostomy complication Comment: Trach tube delivered and currently on Zenaida's desk on 4S There are 3 deliveries of other trach supplies that are to be delivered on Tuesday, Tuesday and Tuesday. Of the necessary supplies the suction and humidification are most essential prior to discharge. Family to open package on Tuesday (today) and inform us what has arrived. Can plan on d/c Tuesday with same day VNS sign on if necessary equipment arrives. We can supply some things from hospital ie gauze etc if this is the pending package on Tuesday. -Trach without bleeding -Evelyne recommended stop suctioning in past and d/c pharm DVT ppx -Stable and awaiting supplies for discharge Status and Disposition: [facility] Still trying to track down supplies, then pt can return home.
[2018-04-28] MEDS: NIFEdipine ER TAB* 30 MG PO SCH (20:48)
[2018-04-28] MEDS: Atorvastatin* 40 MG TAB NG TUBE SCH (20:48)
[2018-04-28] MEDS: Lisinopril TAB* 10 MG PO SCH (20:49)
[2018-04-28] MEDS: Lidocaine Patch REMOVE* 1 NOTE MISC PATCH OFF SCH (20:50)
[2018-04-29] MEDS: Metoprolol Tartrate TAB* 25 MG PO SCH (00:15)
[2018-04-29] MEDS: Lidocaine PATCH 5%* 1 PATCH TRANSDERM SCH (08:14)
[2018-04-29] MEDS: Aspirin 81 mg CHEW TAB* 81 MG TAB.CHEW PO SCH (08:15)
[2018-04-29] MEDS: Amiodarone TAB* 200 MG PO SCH (08:15)
[2018-04-29] MEDS: Lactobacillus Acidophilus* 1 TAB PO SCH ×2 (08:16→20:22)
[2018-04-29] MEDS: Metoprolol Succinate XL TAB* 100 MG PO SCH (08:16)
[2018-04-29] MEDS: Isosorbide Mononitrate ER TAB* 30 MG PO SCH (08:16)
[2018-04-29] MEDS: Furosemide TAB* 20 MG PO SCH (08:16)
[2018-04-29] MEDS: Ferrous Gluconate TAB* 324 MG TAB PO SCH (08:16)
--- NOTE | 2018-04-29 16:03 | PN ---
Subjective Date of Service: 04/29/18 Interval History: Wants to go home No problems over last days Family History: Unchanged from Admission Social History: Unchanged from Admission Past Medical History: Unchanged from Admission Objective Active Medications: Acetaminophen (Tylenol Tab*) 650 mg PO Q6H PRN PRN Reason: pain/fever Last Admin: 04/24/18 21:00 Dose: 650 mg Albuterol (Ventolin 2.5 Mg/3 Ml Neb.Leslie*) 2.5 mg INH Q4H PRN PRN Reason: SOB/WHEEZING Last Admin: 04/17/18 13:12 Dose: 2.5 mg Amiodarone HCl (Cordarone Tab*) 100 mg PO DAILY [facility] Last Admin: 04/29/18 08:15 Dose: 100 mg Aspirin (Aspirin 81 Mg Chew Tab*) 81 mg PO DAILY [facility] Last Admin: 04/29/18 08:15 Dose: 81 mg Atorvastatin Calcium (Lipitor*) 40 mg NG TUBE BEDTIME [facility] Last Admin: 04/28/18 20:48 Dose: 40 mg Atropine Sulfate (Atropine Syringe*) 0.5 mg IV PUSH ONCE PRN PRN Reason: bradycardia Bacitracin (Bacitracin Ointment*) 1 applic TOPICAL TID PRN PRN Reason: WOUND CARE Last Admin: 04/08/18 15:00 Dose: 1 applic Ferrous Gluconate (Fergon Tab*) 324 mg PO DAILY [facility] Last Admin: 04/29/18 08:16 Dose: 324 mg Furosemide (Lasix Tab*) 20 mg PO DAILY [facility] Last Admin: 04/29/18 08:16 Dose: 20 mg Heparin Sodium (Porcine) (Heparin Flush Picc/Ml/Cvc(*)) 1 - 3 ml FLUSH 0600, 1800 [facility]; Protocol Last Admin: 04/29/18 05:39 Dose: 3 ml Isosorbide Mononitrate (Imdur Er Tab*) 30 mg PO DAILY [facility] Last Admin: 04/29/18 08:16 Dose: 30 mg Lactobacillus Rhamnosus (Lactobacillus Acidophilus*) 1 tab PO BID [facility] Last Admin: 04/29/18 08:16 Dose: 1 tab Lidocaine (Lidoderm 5% Patch*) 2 patch TRANSDERM DAILY [facility] Last Admin: 04/29/18 08:14 Dose: 2 patch Lisinopril (Prinivil Tab*) 10 mg PO BEDTIME [facility] Last Admin: 04/28/18 20:49 Dose: 10 mg Metoprolol Succinate (Toprol Xl Tab*) 100 mg PO DAILY [facility] Last Admin: 04/29/18 08:16 Dose: 100 mg Nifedipine (Procardia Xl Tab*) 30 mg PO BEDTIME [facility] Last Admin: 04/28/18 20:48 Dose: 30 mg Pharmacy Profile Note (Lidocaine Patch Remove*) 2 note PATCH OFF 2100 [facility] Last Admin: 04/28/18 20:50 Dose: 2 note Senna (Senokot Tab*) 1 tab PO DAILY PRN PRN Reason: CONSTIPATION Last Admin: 04/17/18 18:10 Dose: 1 tab Vital Signs - 8 hr 04/29/18 04/29/18 04/29/18 08:04 11:38 12:00 Temperature 97.9 F 97.4 F Pulse Rate 60 59 Respiratory 16 16 Rate Blood Pressure 147/57 128/56 (mmHg) O2 Sat by Pulse 100 100 100 Oximetry Oxygen Devices in Use Now: Tracheostomy Collar Appearance: NAD Eyes: No Scleral Icterus, PERRLA Ears/Nose/Mouth/Throat: NL Teeth, Lips, Gums, Clear Oropharnyx Neck: NL Appearance and Movements; NL JVP, Trachea Midline Respiratory: Symmetrical Chest Expansion and Respiratory Effort, Clear to Auscultation Cardiovascular: NL Sounds; No Murmurs; No JVD, RRR Abdominal: NL Sounds; No Tenderness; No Distention, No Hepatosplenomegaly Lymphatic: No Cervical Adenopathy Neurological: Alert and Oriented x 3 Lines/Tubes/Other Access: Clean, Dry and Intact Tracheostomy - c/d/i - Nutrition: Malnutrition Diagnosis/Plan Malnutrition Assessment by Registered Dietitian: Malnutrition Assessment Clinical Characteristics Acute,Moderate Malnutrition Assessment: - 6.1% wt loss in past one month Criteria - mild temporal muscle wasting - intake likely <75% EEE x 7 days Malnutrition Assessment: 1. follow MELTER ASSISTANT re-evaluation of swallowing Interventions function; NPO at this time 2. follow for potential need for PEG placement 3. offer and begin po supplements when pt ready for some level of po intake Malnutrition Assessment: Goals 1. when safe for po intake, pt will tolerate least-restrictive diet texture without evidence of swallowing difficulty or aspiration 2. adequate po intake to maintain present wt and hydration status 3. achieve and maintain serum electrolytes within normal ranges 4. achieve and maintain regulation of bowel pattern; no constipation (or diarrhea) Result Diagrams: 04/25/18 06:10 04/24/18 06:00 Additional Lab and Data: Laboratory Tests 04/16/18 04/17/18 04/17/18 20:22 07:53 09:30 POC Glucose (mg/dL) 147 H 67 L 117 H 04/17/18 12:28 POC Glucose (mg/dL) 71 Microbiology and Other Data: Diagnostic Imaging: Post-pacer CXR: no pneumo EKG Data: Telemetry, no VT, some sinus meño LifeVest interrogation shows it did not discharge Assess/Plan/Problems-Billing Mr. Maher is an 87M with recurrent laryngeal SCC, HTN, afib, DM, and CAD s/p CABG who was admitted 03/01 after a tracheostomy and then underwent total laryngectomy 03/07, with post-operative acute [place] and ICU stay s/p meño/ asystole code on floor and s/p pacemaker pending discharge after finalizing trach care plan. - Patient Problems (1) Acute systolic CHF (congestive heart failure) Comment: Resolved -EF 40-45%. 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 Pt has declined anticoagulation previously for h/o afib. -Metoprolol tartrate q8h -> increase to 100mg succinate 04/29 -Cont amiodarone 100mg daily (3) Diabetes mellitus Comment: -A1c 5.6% during admission and was on no DM medications at home -Stopped fingersticks and insulin sliding scale - rare use (4) Myocardial infarction in recovery phase Comment: -Extensive history of CAD, follows [facility] as [facility]. This admission with [place] on 03/14/18 while recovering from surgery. -Per cardiology notes, patient elected medical management only given extensive comorbidities and recent surgery -Continue ASA, metoprolol, Imdur and atorvastatin (5) Tracheostomy complication Comment: Trach tube delivered and currently on Spruceling's desk on 4[address] There are 3 deliveries of other trach supplies that are to be delivered on Tuesday, Tuesday and Tuesday. Of the necessary supplies the suction and humidification are most essential prior to discharge. Family to open package on Tuesday (today) and inform us what has arrived. Can plan on d/c Tuesday with same day VNS sign on if necessary equipment arrives. We can supply some things from hospital ie gauze etc if this is the pending package on Tuesday. -Discussed with Family and I am awaiting a phone call from vasu mahoney inventoried yesterdays delivery -Trach without bleeding -Evelyne recommended stop suctioning in past and d/c pharm DVT ppx -Stable and awaiting supplies for discharge Status and Disposition: [facility] Still trying to track down supplies, then pt can return home.
[2018-04-29] MEDS: NIFEdipine ER TAB* 30 MG PO SCH (20:22)
[2018-04-29] MEDS: Lisinopril TAB* 10 MG PO SCH (20:22)
[2018-04-29] MEDS: Atorvastatin* 40 MG TAB NG TUBE SCH (20:22)
[2018-04-29] MEDS: Lidocaine Patch REMOVE* 1 NOTE MISC PATCH OFF SCH (20:24)
[2018-04-30] MEDS: Furosemide TAB* 20 MG PO SCH (07:52)
[2018-04-30] MEDS: Ferrous Gluconate TAB* 324 MG TAB PO SCH (07:52)
[2018-04-30] MEDS: Metoprolol Succinate XL TAB* 100 MG PO SCH (07:52)
[2018-04-30] MEDS: Lactobacillus Acidophilus* 1 TAB PO SCH ×2 (07:52→21:41)
[2018-04-30] MEDS: Isosorbide Mononitrate ER TAB* 30 MG PO SCH (07:52)
[2018-04-30] MEDS: Aspirin 81 mg CHEW TAB* 81 MG TAB.CHEW PO SCH (07:52)
[2018-04-30] MEDS: Amiodarone TAB* 200 MG PO SCH (07:52)
[2018-04-30] MEDS: Lidocaine PATCH 5%* 1 PATCH TRANSDERM SCH (07:53)
--- NOTE | 2018-04-30 17:27 | PN ---
Subjective Date of Service: 04/30/18 Interval History: Anxious to go home Went outside with hospital staff today Reviewed equipment that arrived yesterday with pt. Did not include suction. Family History: Unchanged from Admission Social History: Unchanged from Admission Past Medical History: Unchanged from Admission Objective Active Medications: Acetaminophen (Tylenol Tab*) 650 mg PO Q6H PRN PRN Reason: pain/fever Last Admin: 04/24/18 21:00 Dose: 650 mg Albuterol (Ventolin 2.5 Mg/3 Ml Neb.Leslie*) 2.5 mg INH Q4H PRN PRN Reason: SOB/WHEEZING Last Admin: 04/17/18 13:12 Dose: 2.5 mg Amiodarone HCl (Cordarone Tab*) 100 mg PO DAILY [facility] Last Admin: 04/30/18 07:52 Dose: 100 mg Aspirin (Aspirin 81 Mg Chew Tab*) 81 mg PO DAILY [facility] Last Admin: 04/30/18 07:52 Dose: 81 mg Atorvastatin Calcium (Lipitor*) 40 mg NG TUBE BEDTIME [facility] Last Admin: 04/29/18 20:22 Dose: 40 mg Atropine Sulfate (Atropine Syringe*) 0.5 mg IV PUSH ONCE PRN PRN Reason: bradycardia Bacitracin (Bacitracin Ointment*) 1 applic TOPICAL TID PRN PRN Reason: WOUND CARE Last Admin: 04/08/18 15:00 Dose: 1 applic Ferrous Gluconate (Fergon Tab*) 324 mg PO DAILY [facility] Last Admin: 04/30/18 07:52 Dose: 324 mg Furosemide (Lasix Tab*) 20 mg PO DAILY [facility] Last Admin: 04/30/18 07:52 Dose: 20 mg Heparin Sodium (Porcine) (Heparin Flush Picc/Ml/Cvc(*)) 1 - 3 ml FLUSH 0600, 1800 [facility]; Protocol Last Admin: 04/30/18 16:50 Dose: 3 ml Isosorbide Mononitrate (Imdur Er Tab*) 30 mg PO DAILY [facility] Last Admin: 04/30/18 07:52 Dose: 30 mg Lactobacillus Rhamnosus (Lactobacillus Acidophilus*) 1 tab PO BID [facility] Last Admin: 04/30/18 07:52 Dose: 1 tab Lidocaine (Lidoderm 5% Patch*) 2 patch TRANSDERM DAILY [facility] Last Admin: 04/30/18 07:53 Dose: 2 patch Lisinopril (Prinivil Tab*) 10 mg PO BEDTIME [facility] Last Admin: 04/29/18 20:22 Dose: 10 mg Metoprolol Succinate (Toprol Xl Tab*) 100 mg PO DAILY [facility] Last Admin: 04/30/18 07:52 Dose: 100 mg Nifedipine (Procardia Xl Tab*) 30 mg PO BEDTIME [facility] Last Admin: 04/29/18 20:22 Dose: 30 mg Pharmacy Profile Note (Lidocaine Patch Remove*) 2 note PATCH OFF 2100 [facility] Last Admin: 04/29/18 20:24 Dose: 2 note Senna (Senokot Tab*) 1 tab PO DAILY PRN PRN Reason: CONSTIPATION Last Admin: 04/17/18 18:10 Dose: 1 tab Vital Signs - 8 hr 04/30/18 04/30/18 04/30/18 11:06 11:38 15:52 Temperature 97.5 F 97.6 F Pulse Rate 59 59 Respiratory 16 16 Rate Blood Pressure 146/63 166/68 (mmHg) O2 Sat by Pulse 100 100 100 Oximetry Oxygen Devices in Use Now: Tracheostomy Collar Appearance: NAD Eyes: No Scleral Icterus, PERRLA Ears/Nose/Mouth/Throat: NL Teeth, Lips, Gums, Clear Oropharnyx Neck: NL Appearance and Movements; NL JVP, Trachea Midline Respiratory: Symmetrical Chest Expansion and Respiratory Effort, Clear to Auscultation Cardiovascular: RRR Abdominal: NL Sounds; No Tenderness; No Distention, No Hepatosplenomegaly Lymphatic: No Cervical Adenopathy Skin: No Rash or Ulcers Neurological: Alert and Oriented x 3 - Nutrition: Malnutrition Diagnosis/Plan Malnutrition Assessment by Registered Dietitian: Malnutrition Assessment Clinical Characteristics Acute,Moderate Malnutrition Assessment: - 6.1% wt loss in past one month Criteria - mild temporal muscle wasting - intake likely <75% EEE x 7 days Malnutrition Assessment: 1. follow BLASTING CLAY MINER re-evaluation of swallowing Interventions function; NPO at this time 2. follow for potential need for PEG placement 3. offer and begin po supplements when pt ready for some level of po intake Malnutrition Assessment: Goals 1. when safe for po intake, pt will tolerate least-restrictive diet texture without evidence of swallowing difficulty or aspiration 2. adequate po intake to maintain present wt and hydration status 3. achieve and maintain serum electrolytes within normal ranges 4. achieve and maintain regulation of bowel pattern; no constipation (or diarrhea) Result Diagrams: 04/25/18 06:10 04/24/18 06:00 Additional Lab and Data: Laboratory Tests 04/16/18 04/17/18 04/17/18 20:22 07:53 09:30 POC Glucose (mg/dL) 147 H 67 L 117 H 04/17/18 12:28 POC Glucose (mg/dL) 71 Microbiology and Other Data: Diagnostic Imaging: Post-pacer CXR: no pneumo EKG Data: Telemetry, no VT, some sinus meño LifeVest interrogation shows it did not discharge Assess/Plan/Problems-Billing Mr. Maher is an 87M with recurrent laryngeal SCC, HTN, afib, DM, and CAD s/p CABG who was admitted 03/01 after a tracheostomy and then underwent total laryngectomy 03/07, with post-operative acute [place] and ICU stay s/p meño/ asystole code on floor and s/p pacemaker pending discharge after finalizing trach care plan. - Patient Problems (1) Acute systolic CHF (congestive heart failure) Comment: Resolved -EF 40-45%. 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 Pt has declined anticoagulation previously for h/o afib. -Metoprolol tartrate q8h -> increase to 100mg succinate 04/29 -Cont amiodarone 100mg daily (3) Diabetes mellitus Comment: -A1c 5.6% during admission and was on no DM medications at home -Stopped fingersticks and insulin sliding scale - rare use (4) Myocardial infarction in recovery phase Comment: -Extensive history of CAD, follows [facility]. This admission with [place] on 03/14/18 while recovering from surgery. -Per cardiology notes, patient elected medical management only given extensive comorbidities and recent surgery -Continue ASA, metoprolol, Imdur and atorvastatin (5) Tracheostomy complication Comment: Trach tube delivered and currently on Zenaida's desk on 4S There are 2 additional deliveries of other trach supplies that are to be delivered on Tuesday and Tuesday. Of the necessary supplies the suction and humidification are most essential prior to discharge. Family to open package and inform us what has arrived. Can plan on d/c Tuesday with same day VNS sign on if necessary equipment arrives. We can supply some things from hospital ie gauze etc if this is the pending package on Tuesday. -Trach without bleeding -Evelyne recommended stop suctioning in past and d/c pharm DVT ppx -Stable and awaiting supplies for discharge Status and Disposition: [facility]
[2018-04-30] MEDS: NIFEdipine ER TAB* 30 MG PO SCH (21:41)
[2018-04-30] MEDS: Lidocaine Patch REMOVE* 1 NOTE MISC PATCH OFF SCH (21:41)
[2018-04-30] MEDS: Atorvastatin* 40 MG TAB NG TUBE SCH (21:41)
[2018-04-30] MEDS: Lisinopril TAB* 10 MG PO SCH (21:41)
[2018-05-01] MEDS: Lactobacillus Acidophilus* 1 TAB PO SCH ×2 (07:54→20:01)
[2018-05-01] MEDS: Metoprolol Succinate XL TAB* 100 MG PO SCH (07:54)
[2018-05-01] MEDS: Ferrous Gluconate TAB* 324 MG TAB PO SCH (07:54)
[2018-05-01] MEDS: Isosorbide Mononitrate ER TAB* 30 MG PO SCH (07:54)
[2018-05-01] MEDS: Amiodarone TAB* 200 MG PO SCH (07:54)
[2018-05-01] MEDS: Aspirin 81 mg CHEW TAB* 81 MG TAB.CHEW PO SCH (07:54)
[2018-05-01] MEDS: Furosemide TAB* 20 MG PO SCH (07:54)
[2018-05-01] MEDS: Lidocaine PATCH 5%* 1 PATCH TRANSDERM SCH (07:56)
--- NOTE | 2018-05-01 10:53 | PN ---
Subjective Date of Service: 05/01/18 Interval History: Very frustrated at having to wait for supplies to be delivered. His and niece are here. They have no concerned. He got to go outside yesterday. He has no other complaints, just anxious to go home. Eating and walking well. Family History: Unchanged from Admission Social History: Unchanged from Admission Past Medical History: Unchanged from Admission Objective Active Medications: Acetaminophen (Tylenol Tab*) 650 mg PO Q6H PRN PRN Reason: pain/fever Last Admin: 04/24/18 21:00 Dose: 650 mg Albuterol (Ventolin 2.5 Mg/3 Ml Neb.Leslie*) 2.5 mg INH Q4H PRN PRN Reason: SOB/WHEEZING Last Admin: 04/17/18 13:12 Dose: 2.5 mg Amiodarone HCl (Cordarone Tab*) 100 mg PO DAILY [facility] Last Admin: 05/01/18 07:54 Dose: 100 mg Aspirin (Aspirin 81 Mg Chew Tab*) 81 mg PO DAILY [facility] Last Admin: 05/01/18 07:54 Dose: 81 mg Atorvastatin Calcium (Lipitor*) 40 mg NG TUBE BEDTIME [facility] Last Admin: 04/30/18 21:41 Dose: 40 mg Atropine Sulfate (Atropine Syringe*) 0.5 mg IV PUSH ONCE PRN PRN Reason: bradycardia Bacitracin (Bacitracin Ointment*) 1 applic TOPICAL TID PRN PRN Reason: WOUND CARE Last Admin: 04/08/18 15:00 Dose: 1 applic Ferrous Gluconate (Fergon Tab*) 324 mg PO DAILY [facility] Last Admin: 05/01/18 07:54 Dose: 324 mg Furosemide (Lasix Tab*) 20 mg PO DAILY [facility] Last Admin: 05/01/18 07:54 Dose: 20 mg Heparin Sodium (Porcine) (Heparin Flush Picc/Ml/Cvc(*)) 1 - 3 ml FLUSH 0600, 1800 [facility]; Protocol Last Admin: 05/01/18 06:15 Dose: 3 ml Isosorbide Mononitrate (Imdur Er Tab*) 30 mg PO DAILY [facility] Last Admin: 05/01/18 07:54 Dose: 30 mg Lactobacillus Rhamnosus (Lactobacillus Acidophilus*) 1 tab PO BID [facility] Last Admin: 05/01/18 07:54 Dose: 1 tab Lidocaine (Lidoderm 5% Patch*) 2 patch TRANSDERM DAILY [facility] Last Admin: 05/01/18 07:56 Dose: 2 patch Lisinopril (Prinivil Tab*) 10 mg PO BEDTIME [facility] Last Admin: 04/30/18 21:41 Dose: 10 mg Metoprolol Succinate (Toprol Xl Tab*) 100 mg PO DAILY [facility] Last Admin: 05/01/18 07:54 Dose: 100 mg Nifedipine (Procardia Xl Tab*) 30 mg PO BEDTIME [facility] Last Admin: 04/30/18 21:41 Dose: 30 mg Pharmacy Profile Note (Lidocaine Patch Remove*) 2 note PATCH OFF 2100 [facility] Last Admin: 04/30/18 21:41 Dose: 2 note Senna (Senokot Tab*) 1 tab PO DAILY PRN PRN Reason: CONSTIPATION Last Admin: 04/17/18 18:10 Dose: 1 tab Vital Signs - 8 hr 05/01/18 05/01/18 05/01/18 05:20 06:39 07:15 Temperature 97.6 F 98.1 F Pulse Rate 58 59 Respiratory 18 20 20 Rate Blood Pressure 151/59 154/63 (mmHg) O2 Sat by Pulse 100 100 Oximetry Oxygen Devices in Use Now: Tracheostomy Collar Appearance: alert, sitting up in bed, well appearing Eyes: No Scleral Icterus Ears/Nose/Mouth/Throat: NL Teeth, Lips, Gums Neck: - - stoma clean and dry Respiratory: Symmetrical Chest Expansion and Respiratory Effort, Clear to Auscultation Cardiovascular: NL Sounds; No Murmurs; No JVD, RRR, - - AICD left chest wall with yellow/green bruising, no drainage or erythema Abdominal: NL Sounds; No Tenderness; No Distention Lymphatic: No Cervical Adenopathy Skin: No Rash or Ulcers Neurological: Alert and Oriented x 3 - Nutrition: Malnutrition Diagnosis/Plan Malnutrition Assessment by Registered Dietitian: Malnutrition Assessment Clinical Characteristics Acute,Moderate Malnutrition Assessment: - 6.1% wt loss in past one month Criteria - mild temporal muscle wasting - intake likely <75% EEE x 7 days Malnutrition Assessment: 1. follow BLIND INSTALLER re-evaluation of swallowing Interventions function; NPO at this time 2. follow for potential need for PEG placement 3. offer and begin po supplements when pt ready for some level of po intake Malnutrition Assessment: Goals 1. when safe for po intake, pt will tolerate least-restrictive diet texture without evidence of swallowing difficulty or aspiration 2. adequate po intake to maintain present wt and hydration status 3. achieve and maintain serum electrolytes within normal ranges 4. achieve and maintain regulation of bowel pattern; no constipation (or diarrhea) Result Diagrams: 04/25/18 06:10 04/24/18 06:00 Additional Lab and Data: Laboratory Tests 04/16/18 04/17/18 04/17/18 20:22 07:53 09:30 POC Glucose (mg/dL) 147 H 67 L 117 H 04/17/18 12:28 POC Glucose (mg/dL) 71 Microbiology and Other Data: Diagnostic Imaging: Post-pacer CXR: no pneumo EKG Data: Telemetry, no VT, some sinus meño LifeVest interrogation shows it did not discharge Assess/Plan/Problems-Billing Mr. Maher is an 87M with recurrent laryngeal SCC, HTN, afib, DM, and CAD s/p CABG who was admitted 03/01 after a tracheostomy and then underwent total laryngectomy 03/07, with post-operative acute IA and ICU stay s/p meño/ asystole code on floor and s/p pacemaker pending discharge after finalizing trach care plan. 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 Pt has declined anticoagulation previously for h/o afib. controlled on toprol 100mg daily Cont amiodarone 100mg daily (4) Diabetes mellitus Current Visit: Yes Status: Chronic Priority: Medium Code(s): E11.9 - TYPE 2 DIABETES MELLITUS WITHOUT COMPLICATIONS SNOMED Code(s): 75876804 Comment: A1c 5.6% during admission and was on no DM medications at home Stopped fingersticks and insulin sliding scale - rare use (5) CAD (coronary artery disease) Current Visit: Yes Status: Chronic Code(s): I25.10 - ATHSCL HEART DISEASE OF [place] CORONARY ARTERY W/O ANG PCTRS SNOMED Code(s): 39050506 Comment: It is thought the patient had a IA post op Continue ASA, metoprolol, Imdur and atorvastatin Plavix stopped due to bleeding from trach site, and cardiology recommended as trops minimally elevated-risk greater than benefit (6) Acute systolic CHF (congestive heart failure) Current Visit: Yes Status: Acute Code(s): I50.21 - ACUTE SYSTOLIC ( CONGESTIVE) HEART FAILURE SNOMED Code(s): 177865573 Comment: Resolved -EF 40-45%. -Lasix 20 mg daily PO -No longer on home spironolactone -On bb, tracey-i (7) CKD (chronic kidney disease) stage 3, GFR 30-59 ml/min Current Visit: Yes Status: Acute Code(s): N18.3 - CHRONIC KIDNEY DISEASE, STAGE 3 (MODERATE) SNOMED Code(s): 857951787 Comment: baseline labs not being checked (8) Myocardial infarction in recovery phase Current Visit: Yes Status: Acute Code(s): I21.9 - ACUTE MYOCARDIAL INFARCTION, UNSPECIFIED SNOMED Code(s): 507873073 Comment: -Extensive history of CAD, follows with [facility] as an outpatient. This admission with IA on 03/14/18 while recovering from surgery. -Per cardiology notes, patient elected medical management only given extensive comorbidities and recent surgery -Continue ASA, metoprolol, Imdur and atorvastatin Status and Disposition: Pending trach supplies from [place].
[2018-05-01] MEDS: Lisinopril TAB* 10 MG PO SCH (20:01)
[2018-05-01] MEDS: Atorvastatin* 40 MG TAB NG TUBE SCH (20:01)
[2018-05-01] MEDS: NIFEdipine ER TAB* 30 MG PO SCH (20:01)
[2018-05-01] MEDS: Lidocaine Patch REMOVE* 1 NOTE MISC PATCH OFF SCH (20:05)
[2018-05-02] MEDS: Amiodarone TAB* 200 MG PO SCH (08:49)
[2018-05-02] MEDS: Isosorbide Mononitrate ER TAB* 30 MG PO SCH (08:50)
[2018-05-02] MEDS: Lactobacillus Acidophilus* 1 TAB PO SCH ×2 (08:50→20:06)
[2018-05-02] MEDS: Aspirin 81 mg CHEW TAB* 81 MG TAB.CHEW PO SCH (08:50)
[2018-05-02] MEDS: Ferrous Gluconate TAB* 324 MG TAB PO SCH (08:50)
[2018-05-02] MEDS: Furosemide TAB* 20 MG PO SCH (08:50)
[2018-05-02] MEDS: Metoprolol Succinate XL TAB* 100 MG PO SCH (08:50)
[2018-05-02] MEDS: Lidocaine PATCH 5%* 1 PATCH TRANSDERM SCH (08:52)
--- NOTE | 2018-05-02 11:37 | PN ---
Subjective Date of Service: 05/02/18 Interval History: No overnight events. Mr. Maher is playing cards and is anxious to hear when he will get to go home. Unfortunately case management tells me that his supplies won't be delivered until . He is very upset to hear this. Family History: Unchanged from Admission Social History: Unchanged from Admission Past Medical History: Unchanged from Admission Objective Active Medications: Acetaminophen (Tylenol Tab*) 650 mg PO Q6H PRN PRN Reason: pain/fever Last Admin: 04/24/18 21:00 Dose: 650 mg Albuterol (Ventolin 2.5 Mg/3 Ml Neb.Leslie*) 2.5 mg INH Q4H PRN PRN Reason: SOB/WHEEZING Last Admin: 04/17/18 13:12 Dose: 2.5 mg Amiodarone HCl (Cordarone Tab*) 100 mg PO DAILY [facility] [place] Last Admin: 05/02/18 08:49 Dose: 100 mg Aspirin (Aspirin 81 Mg Chew Tab*) 81 mg PO DAILY [facility] [place] Last Admin: 05/02/18 08:50 Dose: 81 mg Atorvastatin Calcium (Lipitor*) 40 mg NG TUBE BEDTIME [facility] [place] Last Admin: 05/01/18 20:01 Dose: 40 mg Atropine Sulfate (Atropine Syringe*) 0.5 mg IV PUSH ONCE PRN PRN Reason: bradycardia Bacitracin (Bacitracin Ointment*) 1 applic TOPICAL TID PRN PRN Reason: WOUND CARE Last Admin: 04/08/18 15:00 Dose: 1 applic Ferrous Gluconate (Fergon Tab*) 324 mg PO DAILY [facility] [place] Last Admin: 05/02/18 08:50 Dose: 324 mg Furosemide (Lasix Tab*) 20 mg PO DAILY [facility] Last Admin: 05/02/18 08:50 Dose: 20 mg Heparin Sodium (Porcine) (Heparin Flush Picc/Ml/Cvc(*)) 1 - 3 ml FLUSH 0600, 1800 [facility] [place]; Protocol Last Admin: 05/02/18 06:09 Dose: 3 ml Isosorbide Mononitrate (Imdur Er Tab*) 30 mg PO DAILY [facility] Last Admin: 05/02/18 08:50 Dose: 30 mg Lactobacillus Rhamnosus (Lactobacillus Acidophilus*) 1 tab PO BID [facility] Last Admin: 05/02/18 08:50 Dose: 1 tab Lidocaine (Lidoderm 5% Patch*) 2 patch TRANSDERM DAILY [facility] Last Admin: 05/02/18 08:52 Dose: 1 patch Lisinopril (Prinivil Tab*) 10 mg PO BEDTIME [facility] Last Admin: 05/01/18 20:01 Dose: 10 mg Metoprolol Succinate (Toprol Xl Tab*) 100 mg PO DAILY [facility] [place] Last Admin: 05/02/18 08:50 Dose: 100 mg Nifedipine (Procardia Xl Tab*) 30 mg PO BEDTIME [facility] [place] Last Admin: 05/01/18 20:01 Dose: 30 mg Pharmacy Profile Note (Lidocaine Patch Remove*) 2 note PATCH OFF 2100 [facility] [place] Last Admin: 05/01/18 20:05 Dose: 2 note Senna (Senokot Tab*) 1 tab PO DAILY PRN PRN Reason: CONSTIPATION Last Admin: 04/17/18 18:10 Dose: 1 tab Vital Signs - 8 hr 05/02/18 05/02/18 05/02/18 04:00 06:17 07:27 Temperature 97.3 F Pulse Rate 59 Respiratory 20 18 Rate Blood Pressure 157/66 (mmHg) O2 Sat by Pulse 100 100 Oximetry Oxygen Devices in Use Now: Tracheostomy Collar Appearance: alert, well appearing, sitting up in bed playing cards Eyes: No Scleral Icterus Ears/Nose/Mouth/Throat: NL Teeth, Lips, Gums, - - stoma clean, dry Neck: NL Appearance and Movements; NL JVP Respiratory: Symmetrical Chest Expansion and Respiratory Effort, Clear to Auscultation Cardiovascular: RRR, - - systolic murmur. icd site clean, dry. +echymosis, no drainage or erythema Abdominal: NL Sounds; No Tenderness; No Distention Lymphatic: No Cervical Adenopathy Extremities: No Edema Skin: No Rash or Ulcers Neurological: Alert and Oriented x 3 - Nutrition: Malnutrition Diagnosis/Plan Malnutrition Assessment by Registered Dietitian: Malnutrition Assessment Clinical Characteristics Acute,Moderate Malnutrition Assessment: - 6.1% wt loss in past one month Criteria - mild temporal muscle wasting - intake likely <75% EEE x 7 days Malnutrition Assessment: 1. follow MAGNETIC TESTING TECHNICIAN re-evaluation of swallowing Interventions function; NPO at this time 2. follow for potential need for PEG placement 3. offer and begin po supplements when pt ready for some level of po intake Malnutrition Assessment: Goals 1. when safe for po intake, pt will tolerate least-restrictive diet texture without evidence of swallowing difficulty or aspiration 2. adequate po intake to maintain present wt and hydration status 3. achieve and maintain serum electrolytes within normal ranges 4. achieve and maintain regulation of bowel pattern; no constipation (or diarrhea) Result Diagrams: 04/25/18 06:10 04/24/18 06:00 Additional Lab and Data: Laboratory Tests 04/16/18 04/17/18 04/17/18 20:22 07:53 09:30 POC Glucose (mg/dL) 147 H 67 L 117 H 04/17/18 12:28 POC Glucose (mg/dL) 71 Microbiology and Other Data: Diagnostic Imaging: Post-pacer CXR: no pneumo EKG Data: Telemetry, no VT, some sinus meño LifeVest interrogation shows it did not discharge Assess/Plan/Problems-Billing Mr. Maher is an 87M with recurrent laryngeal SCC, HTN, afib, DM, and CAD s/p CABG who was admitted 03/01 after a tracheostomy and then underwent total laryngectomy 03/07, with post-operative acute SD and ICU stay s/p meño/ asystole code on floor and s/p pacemaker pending discharge after finalizing trach care plan. 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 Pt has declined anticoagulation previously for h/o afib. controlled on toprol 100mg daily Cont amiodarone 100mg daily (4) Diabetes mellitus Current Visit: Yes Status: Chronic Priority: Medium Code(s): E11.9 - TYPE 2 DIABETES MELLITUS WITHOUT COMPLICATIONS SNOMED Code(s): 89452764 Comment: A1c 5.6% during admission and was on no DM medications at home Stopped fingersticks and insulin sliding scale - rare use (5) CAD (coronary artery disease) Current Visit: Yes Status: Chronic Code(s): I25.10 - ATHSCL HEART DISEASE OF [place] CORONARY ARTERY W/O ANG PCTRS SNOMED Code(s): 35185878 Comment: It is thought the patient had a [place] post op Continue ASA, metoprolol, Imdur and atorvastatin Plavix stopped due to bleeding from trach site, and cardiology recommended as trops minimally elevated-risk greater than benefit (6) Acute systolic CHF (congestive heart failure) Current Visit: Yes Status: Acute Code(s): I50.21 - ACUTE SYSTOLIC ( CONGESTIVE) HEART FAILURE SNOMED Code(s): 226440795 Comment: Resolved -EF 40-45%. -Lasix 20 mg daily PO -No longer on home spironolactone -On bb, tracey-i (7) CKD (chronic kidney disease) stage 3, GFR 30-59 ml/min Current Visit: Yes Status: Acute Code(s): N18.3 - CHRONIC KIDNEY DISEASE, STAGE 3 (MODERATE) SNOMED Code(s): 174522945 Comment: baseline labs not being checked (8) Myocardial infarction in recovery phase Current Visit: Yes Status: Acute Code(s): I21.9 - ACUTE MYOCARDIAL INFARCTION, UNSPECIFIED SNOMED Code(s): 708222546 Comment: -Extensive history of CAD, follows with [facility] as an outpatient. This admission with SD on 03/14/18 while recovering from surgery. -Per cardiology notes, patient elected medical management only given extensive comorbidities and recent surgery -Continue ASA, metoprolol, Imdur and atorvastatin Status and Disposition: Pending trach supplies from [place].
[2018-05-02] MEDS: Atorvastatin* 40 MG TAB NG TUBE SCH (20:05)
[2018-05-02] MEDS: NIFEdipine ER TAB* 30 MG PO SCH (20:05)
[2018-05-02] MEDS: Lisinopril TAB* 10 MG PO SCH (20:06)
[2018-05-02] MEDS: Lidocaine Patch REMOVE* 1 NOTE MISC PATCH OFF SCH (20:08)
[2018-05-02] MEDS ORDERED: Furosemide IV* 10 MG/ML 2 ML VIAL (20 MG) IV ONE (23:42)
[2018-05-03 06:49] LABS: BUN/Creatinine Ratio 23.6 (8-20); Calcium 8.7 mg/dL (8.6-10.3); EGFR African American 47.8 (>60); EGFR Non-African American 39.5 (>60); Potassium 3.6 mmol/L (3.5-5.0)
[2018-05-03] MEDS: Lidocaine PATCH 5%* 1 PATCH TRANSDERM SCH (08:21)
[2018-05-03] MEDS: Aspirin 81 mg CHEW TAB* 81 MG TAB.CHEW PO SCH (08:22)
[2018-05-03] MEDS: Lactobacillus Acidophilus* 1 TAB PO SCH ×2 (08:22→20:22)
[2018-05-03] MEDS: Furosemide TAB* 20 MG PO SCH (08:22)
[2018-05-03] MEDS: Ferrous Gluconate TAB* 324 MG TAB PO SCH (08:22)
[2018-05-03] MEDS: Metoprolol Succinate XL TAB* 100 MG PO SCH (08:22)
[2018-05-03] MEDS: Amiodarone TAB* 200 MG PO SCH (08:22)
[2018-05-03] MEDS: Isosorbide Mononitrate ER TAB* 30 MG PO SCH (08:22)
--- NOTE | 2018-05-03 19:22 | PN ---
Subjective Date of Service: 05/03/18 Interval History: No events. Feels fine. Discouraged but in good spirits. Family History: Unchanged from Admission Social History: Unchanged from Admission Past Medical History: Unchanged from Admission Objective Active Medications: Acetaminophen (Tylenol Tab*) 650 mg PO Q6H PRN PRN Reason: pain/fever Last Admin: 04/24/18 21:00 Dose: 650 mg Albuterol (Ventolin 2.5 Mg/3 Ml Neb.Leslie*) 2.5 mg INH Q4H PRN PRN Reason: SOB/WHEEZING Last Admin: 04/17/18 13:12 Dose: 2.5 mg Amiodarone HCl (Cordarone Tab*) 100 mg PO DAILY [facility] Last Admin: 05/03/18 08:22 Dose: 100 mg Aspirin (Aspirin 81 Mg Chew Tab*) 81 mg PO DAILY [facility] Last Admin: 05/03/18 08:22 Dose: 81 mg Atorvastatin Calcium (Lipitor*) 40 mg NG TUBE BEDTIME [facility] Last Admin: 05/02/18 20:05 Dose: 40 mg Atropine Sulfate (Atropine Syringe*) 0.5 mg IV PUSH ONCE PRN PRN Reason: bradycardia Bacitracin (Bacitracin Ointment*) 1 applic TOPICAL TID PRN PRN Reason: WOUND CARE Last Admin: 04/08/18 15:00 Dose: 1 applic Ferrous Gluconate (Fergon Tab*) 324 mg PO DAILY [facility] Last Admin: 05/03/18 08:22 Dose: 324 mg Furosemide (Lasix Tab*) 20 mg PO DAILY [facility] Last Admin: 05/03/18 08:22 Dose: 20 mg Heparin Sodium (Porcine) (Heparin Flush Picc/Ml/Cvc(*)) 1 - 3 ml FLUSH 0600, 1800 [facility]; Protocol Last Admin: 05/03/18 17:45 Dose: 3 ml Isosorbide Mononitrate (Imdur Er Tab*) 30 mg PO DAILY [facility] Last Admin: 05/03/18 08:22 Dose: 30 mg Lactobacillus Rhamnosus (Lactobacillus Acidophilus*) 1 tab PO BID [facility] Last Admin: 05/03/18 08:22 Dose: 1 tab Lidocaine (Lidoderm 5% Patch*) 2 patch TRANSDERM DAILY [facility] Last Admin: 05/03/18 08:21 Dose: Not Given Lisinopril (Prinivil Tab*) 10 mg PO BEDTIME [facility] Last Admin: 05/02/18 20:06 Dose: 10 mg Metoprolol Succinate (Toprol Xl Tab*) 100 mg PO DAILY [facility] Last Admin: 05/03/18 08:22 Dose: 100 mg Nifedipine (Procardia Xl Tab*) 30 mg PO BEDTIME [facility] Last Admin: 05/02/18 20:05 Dose: 30 mg Pharmacy Profile Note (Lidocaine Patch Remove*) 2 note PATCH OFF 2100 [facility] Last Admin: 05/02/18 20:08 Dose: 1 note Senna (Senokot Tab*) 1 tab PO DAILY PRN PRN Reason: CONSTIPATION Last Admin: 04/17/18 18:10 Dose: 1 tab Vital Signs - 8 hr 05/03/18 05/03/18 05/03/18 11:43 14:31 15:57 Temperature 97.6 F 98.6 F 96.7 F Pulse Rate 63 48 59 Respiratory 20 12 20 Rate Blood Pressure 144/64 132/70 150/60 (mmHg) O2 Sat by Pulse 100 98 100 Oximetry 05/03/18 05/03/18 05/03/18 16:05 16:07 18:20 Temperature 96.7 F 97.1 F Pulse Rate 59 59 Respiratory 20 20 20 Rate Blood Pressure 150/60 172/84 (mmHg) O2 Sat by Pulse 100 99 Oximetry 05/03/18 18:23 Temperature 97.1 F Pulse Rate 59 Respiratory 20 Rate Blood Pressure 172/84 (mmHg) O2 Sat by Pulse 99 Oximetry Oxygen Devices in Use Now: Tracheostomy Collar Appearance: alert, well appearing Eyes: No Scleral Icterus Ears/Nose/Mouth/Throat: NL Teeth, Lips, Gums Neck: - - stoma clean Respiratory: Symmetrical Chest Expansion and Respiratory Effort Cardiovascular: NL Sounds; No Murmurs; No JVD, RRR Abdominal: NL Sounds; No Tenderness; No Distention Lymphatic: No Cervical Adenopathy Extremities: No Edema, - - tracey wrapped b/l legs Skin: No Rash or Ulcers - Nutrition: Malnutrition Diagnosis/Plan Malnutrition Assessment by Registered Dietitian: Malnutrition Assessment Clinical Characteristics Acute,Moderate Malnutrition Assessment: - 6.1% wt loss in past one month Criteria - mild temporal muscle wasting - intake likely <75% EEE x 7 days Malnutrition Assessment: 1. follow ROCK CRUSHER OPERATOR re-evaluation of swallowing Interventions function; NPO at this time 2. follow for potential need for PEG placement 3. offer and begin po supplements when pt ready for some level of po intake Malnutrition Assessment: Goals 1. when safe for po intake, pt will tolerate least-restrictive diet texture without evidence of swallowing difficulty or aspiration 2. adequate po intake to maintain present wt and hydration status 3. achieve and maintain serum electrolytes within normal ranges 4. achieve and maintain regulation of bowel pattern; no constipation (or diarrhea) Result Diagrams: 04/25/18 06:10 05/03/18 05:32 Additional Lab and Data: Laboratory Tests 04/16/18 04/17/18 04/17/18 20:22 07:53 09:30 POC Glucose (mg/dL) 147 H 67 L 117 H 04/17/18 12:28 POC Glucose (mg/dL) 71 Microbiology and Other Data: Diagnostic Imaging: Post-pacer CXR: no pneumo EKG Data: Telemetry, no VT, some sinus meño LifeVest interrogation shows it did not discharge Assess/Plan/Problems-Billing Mr. Maher is an 87M with recurrent laryngeal SCC, HTN, afib, DM, and CAD s/p CABG who was admitted 03/01 after a tracheostomy and then underwent total laryngectomy 03/07, with post-operative acute CT and ICU stay s/p meño/ asystole code on floor and s/p pacemaker pending discharge after finalizing trach care plan. 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 Pt has declined anticoagulation previously for h/o afib. controlled on toprol 100mg daily Cont amiodarone 100mg daily (4) Diabetes mellitus Current Visit: Yes Status: Chronic Priority: Medium Code(s): E11.9 - TYPE 2 DIABETES MELLITUS WITHOUT COMPLICATIONS SNOMED Code(s): 58879726 Comment: A1c 5.6% during admission and was on no DM medications at home Stopped fingersticks and insulin sliding scale - rare use (5) CAD (coronary artery disease) Current Visit: Yes Status: Chronic Code(s): I25.10 - ATHSCL HEART DISEASE OF [place] CORONARY ARTERY W/O ANG PCTRS SNOMED Code(s): 30765319 Comment: It is thought the patient had a CT post op Continue ASA, metoprolol, Imdur and atorvastatin Plavix stopped due to bleeding from trach site, and cardiology recommended as trops minimally elevated-risk greater than benefit (6) Acute systolic CHF (congestive heart failure) Current Visit: Yes Status: Acute Code(s): I50.21 - ACUTE SYSTOLIC ( CONGESTIVE) HEART FAILURE SNOMED Code(s): 837948330 Comment: Resolved -EF 40-45%. -Lasix 20 mg daily PO -No longer on home spironolactone -On bb, tracey-i (7) CKD (chronic kidney disease) stage 3, GFR 30-59 ml/min Current Visit: Yes Status: Acute Code(s): N18.3 - CHRONIC KIDNEY DISEASE, STAGE 3 (MODERATE) SNOMED Code(s): 350356764 Comment: baseline labs not being checked (8) Myocardial infarction in recovery phase Current Visit: Yes Status: Acute Code(s): I21.9 - ACUTE MYOCARDIAL INFARCTION, UNSPECIFIED SNOMED Code(s): 575202363 Comment: Extensive history of CAD, follows with [facility] as an outpatient. This admission with CT on 03/14/18 while recovering from surgery. Patient elected medical management only given extensive comorbidities and recent surgery Continue ASA, metoprolol, Imdur and atorvastatin Status and Disposition: Pending trach supplies from [place].
[2018-05-03] MEDS: NIFEdipine ER TAB* 30 MG PO SCH (20:21)
[2018-05-03] MEDS: Lisinopril TAB* 10 MG PO SCH (20:22)
[2018-05-03] MEDS: Atorvastatin* 40 MG TAB NG TUBE SCH (20:22)
[2018-05-03] MEDS: Lidocaine Patch REMOVE* 1 NOTE MISC PATCH OFF SCH (20:24)
[2018-05-04] MEDS: Ferrous Gluconate TAB* 324 MG TAB PO SCH (09:46)
[2018-05-04] MEDS: Metoprolol Succinate XL TAB* 100 MG PO SCH (09:46)
[2018-05-04] MEDS: Lactobacillus Acidophilus* 1 TAB PO SCH ×2 (09:46→22:00)
[2018-05-04] MEDS: Amiodarone TAB* 200 MG PO SCH (09:46)
[2018-05-04] MEDS: Aspirin 81 mg CHEW TAB* 81 MG TAB.CHEW PO SCH (09:46)
[2018-05-04] MEDS: Furosemide TAB* 20 MG PO SCH (09:46)
[2018-05-04] MEDS: Isosorbide Mononitrate ER TAB* 30 MG PO SCH (09:46)
[2018-05-04] MEDS: Lidocaine PATCH 5%* 1 PATCH TRANSDERM SCH (09:47)
--- NOTE | 2018-05-04 16:07 | PN ---
Subjective Date of Service: 05/04/18 Interval History: No new c/o. Family History: Unchanged from Admission Social History: Unchanged from Admission Past Medical History: Unchanged from Admission Objective Active Medications: Acetaminophen (Tylenol Tab*) 650 mg PO Q6H PRN PRN Reason: pain/fever Last Admin: 04/24/18 21:00 Dose: 650 mg Albuterol (Ventolin 2.5 Mg/3 Ml Neb.Leslie*) 2.5 mg INH Q4H PRN PRN Reason: SOB/WHEEZING Last Admin: 04/17/18 13:12 Dose: 2.5 mg Amiodarone HCl (Cordarone Tab*) 100 mg PO DAILY [facility] Last Admin: 05/04/18 09:46 Dose: 100 mg Aspirin (Aspirin 81 Mg Chew Tab*) 81 mg PO DAILY [facility] Last Admin: 05/04/18 09:46 Dose: 81 mg Atorvastatin Calcium (Lipitor*) 40 mg NG TUBE BEDTIME [facility] Last Admin: 05/03/18 20:22 Dose: 40 mg Atropine Sulfate (Atropine Syringe*) 0.5 mg IV PUSH ONCE PRN PRN Reason: bradycardia Bacitracin (Bacitracin Ointment*) 1 applic TOPICAL TID PRN PRN Reason: WOUND CARE Last Admin: 04/08/18 15:00 Dose: 1 applic Ferrous Gluconate (Fergon Tab*) 324 mg PO DAILY [facility] Last Admin: 05/04/18 09:46 Dose: 324 mg Furosemide (Lasix Tab*) 20 mg PO DAILY [facility] Last Admin: 05/04/18 09:46 Dose: 20 mg Heparin Sodium (Porcine) (Heparin Flush Picc/Ml/Cvc(*)) 1 - 3 ml FLUSH 0600, 1800 [facility]; Protocol Last Admin: 05/04/18 06:59 Dose: 3 ml Isosorbide Mononitrate (Imdur Er Tab*) 30 mg PO DAILY [facility] Last Admin: 05/04/18 09:46 Dose: 30 mg Lactobacillus Rhamnosus (Lactobacillus Acidophilus*) 1 tab PO BID [facility] Last Admin: 05/04/18 09:46 Dose: 1 tab Lidocaine (Lidoderm 5% Patch*) 2 patch TRANSDERM DAILY [facility] Last Admin: 05/04/18 09:47 Dose: 2 patch Lisinopril (Prinivil Tab*) 10 mg PO BEDTIME [facility] Last Admin: 05/03/18 20:22 Dose: 10 mg Metoprolol Succinate (Toprol Xl Tab*) 100 mg PO DAILY [facility] Last Admin: 05/04/18 09:46 Dose: 100 mg Nifedipine (Procardia Xl Tab*) 30 mg PO BEDTIME [facility] Last Admin: 05/03/18 20:21 Dose: 30 mg Pharmacy Profile Note (Lidocaine Patch Remove*) 2 note PATCH OFF 2100 [facility] Last Admin: 05/03/18 20:24 Dose: Not Given Senna (Senokot Tab*) 1 tab PO DAILY PRN PRN Reason: CONSTIPATION Last Admin: 04/17/18 18:10 Dose: 1 tab Vital Signs - 8 hr 05/04/18 05/04/18 08:04 11:10 Temperature 96.5 F 98.1 F Pulse Rate 59 Respiratory 18 Rate Blood Pressure 143/50 (mmHg) O2 Sat by Pulse 100 Oximetry Oxygen Devices in Use Now: Tracheostomy Collar Appearance: Alert, partly up in bed. Infair spirits. Looks comfortable. Extremities: No Edema, No Clubbing, Cyanosis, - Skin: No Rash or Ulcers, No Nodules or Sclerosis, - Neurological: Alert and Oriented x 3, NL Sensation - Nutrition: Malnutrition Diagnosis/Plan Malnutrition Assessment by Registered Dietitian: Malnutrition Assessment Clinical Characteristics Acute,Moderate Malnutrition Assessment: - 6.1% wt loss in past one month Criteria - mild temporal muscle wasting - intake likely <75% EEE x 7 days Malnutrition Assessment: 1. follow [employer] re-evaluation of swallowing Interventions function; NPO at this time 2. follow for potential need for PEG placement 3. offer and begin po supplements when pt ready for some level of po intake Malnutrition Assessment: Goals 1. when safe for po intake, pt will tolerate least-restrictive diet texture without evidence of swallowing difficulty or aspiration 2. adequate po intake to maintain present wt and hydration status 3. achieve and maintain serum electrolytes within normal ranges 4. achieve and maintain regulation of bowel pattern; no constipation (or diarrhea) Result Diagrams: 04/25/18 06:10 05/03/18 05:32 Additional Lab and Data: Laboratory Tests 04/16/18 04/17/18 04/17/18 20:22 07:53 09:30 POC Glucose (mg/dL) 147 H 67 L 117 H 04/17/18 12:28 POC Glucose (mg/dL) 71 Microbiology and Other Data: Diagnostic Imaging: Post-pacer CXR: no pneumo EKG Data: Telemetry, no VT, some sinus meño LifeVest interrogation shows it did not discharge Assess/Plan/Problems-Billing Mr. Maher is an 87M with recurrent laryngeal SCC, HTN, afib, DM, and CAD s/p CABG who was admitted 03/01 after a tracheostomy and then underwent total laryngectomy 03/07, with post-operative acute MD and ICU stay s/p meño/ asystole code on floor and s/p pacemaker pending discharge after finalizing trach care plan. - Patient Problems (1) Laryngeal cancer Current Visit: Yes Status: Acute Priority: Medium Comment: S/P tracheostomy and total laryngectomy (2) CAD (coronary artery disease) Current Visit: Yes Status: Chronic Code(s): I25.10 - ATHSCL HEART DISEASE OF [place] CORONARY ARTERY W/O ANG PCTRS SNOMED Code(s): 09629874 Comment: It is thought the patient had a MD post op Continue ASA, metoprolol, Imdur and atorvastatin Plavix stopped due to bleeding from trach site, and cardiology recommended as trops minimally elevated-risk greater than benefit Status and Disposition: Pending trach supplies from [place].
[2018-05-04] MEDS: Acetaminophen TAB* 325 MG PO PRN (19:04)
[2018-05-04] MEDS ORDERED: Al Hydrox/Mg Hydrox/Simet LIQ* 30 ML UDC PO PRN (19:23)
[2018-05-04] MEDS: Lisinopril TAB* 10 MG PO SCH (22:00)
[2018-05-04] MEDS: Atorvastatin* 40 MG TAB NG TUBE SCH (22:00)
[2018-05-04] MEDS: NIFEdipine ER TAB* 30 MG PO SCH (22:00)
[2018-05-04] MEDS: Lidocaine Patch REMOVE* 1 NOTE MISC PATCH OFF SCH (22:05)
[2018-05-04] MEDS ORDERED: Morphine INJ* 2 MG/ML 1 ML SYRINGE (TWO MG - NEW SYRINGE VERSION) IV ONE (23:47)
--- NOTE | 2018-05-05 01:23 | PN ---
Hospitalist Progress Note Date of Service: 05/05/18 HOSPITALIST ADDENDUM Called by RN earlier this shift because patient was c/o abdominal pain described as indigestions. Received Maalox with no significant improvement. Pain then moved lower after BMs, received Morphine with minimal improvement. Evaluated at bedside - c/o lower abdominal pain, 09/16, "comes and goes", no relief after BM and passing gas. Denies N/V. Abdome is soft, mild RLQ and hypogastric tenderness, NG, NR, BS+. A/P: Abdominal pain - Check bladder scan, KUB, CT abd/pelvis. - Pain management.
[2018-05-05] MEDS ORDERED: Morphine INJ* 2 MG/ML 1 ML SYRINGE (TWO MG - NEW SYRINGE VERSION) IV PRN (05:47)
[2018-05-05] MEDS ORDERED: Piperacillin/Tazobac ADVAN(*) 3.375 GM in NS 0.9% 100 ML* 100 ML IVPB ONE (07:13)
[2018-05-05] MEDS ORDERED: Zosyn per Pharmacy* NOTE FOLLOW UP SCH (08:00)
[2018-05-05 08:33] LABS: ABS Basophils 0.1 10^3/ul (0-0.2); ABS Eosinophils 0.2 10^3/ul (0-0.6); ABS Lymphocytes 0.5 10^3/ul (1.0-4.8); ABS Monocytes 0.9 10^3/ul (0-0.8); ABS Neutrophils 9.9 10^3/ul (1.5-7.7); ABS Nucleated RBC 0 10^3/ul; Eosinophil % 1.6 %; Hematocrit 30 % (36-46); Hemoglobin 10.1 g/dL (14.0-18.0); Lymphocyte % 4.6 %; Mean Corpuscular HGB Conc 34 g/dL (31-36); Mean Corpuscular Hemoglobin 30 pg (27-31); Mean Corpuscular Volume 88 fL (80-94); Mean Platelet Volume 7.6 fL (7.4-10.4); Nucleated Red Blood Cells % 0; Platelet Count 175 10^3/uL (150-450); Red Blood Count 3.35 10^6 /uL (4.18-5.48); Red Cell Distribution Width 17 % (10.5-15); White Blood Count 11.6 10^3/uL (3.5-10.8)
[2018-05-05 08:52] LABS: Albumin 3.1 g/dL (3.2-5.2); Albumin/Globulin Ratio 1.1 (1-3); BUN/Creatinine Ratio 20.9 (8-20); Calcium 8.9 mg/dL (8.6-10.3); EGFR African American 54.2 (>60); EGFR Non-African American 44.8 (>60); Globulin 2.7 g/dL (2-4); Potassium 3.9 mmol/L (3.5-5.0); Total Bilirubin 0.6 mg/dL (0.2-1.0); Total Protein 5.8 g/dL (6.4-8.9)
[2018-05-05] MEDS ORDERED: Amoxicillin/Clavulanate TAB* 500 MG PO SCH ×2 (09:00→21:00)
[2018-05-05] MEDS: Metoprolol Succinate XL TAB* 100 MG PO SCH (09:25)
[2018-05-05] MEDS: Ferrous Gluconate TAB* 324 MG TAB PO SCH (09:26)
[2018-05-05] MEDS: Isosorbide Mononitrate ER TAB* 30 MG PO SCH (09:26)
[2018-05-05] MEDS: metroNIDAZOLE TAB* 250 MG PO SCH ×2 (09:26→14:27)
[2018-05-05] MEDS: Amiodarone TAB* 200 MG PO SCH (09:26)
[2018-05-05] MEDS: Lactobacillus Acidophilus* 1 TAB PO SCH (09:26)
[2018-05-05] MEDS: Furosemide TAB* 20 MG PO SCH (09:26)
[2018-05-05] MEDS: Aspirin 81 mg CHEW TAB* 81 MG TAB.CHEW PO SCH (09:26)
[2018-05-05] MEDS: Lidocaine PATCH 5%* 1 PATCH TRANSDERM SCH (09:38)
--- NOTE | 2018-05-05 12:16 | PN ---
Progress Note - Progress Note Date of Service: 05/05/18 Note: Time spent on discharge including exam of patient, discussion with patient, nurse, CM, review of EMR and preparation of discharge documents 50 minutes.
[2018-05-05 12:26] VITALS: BP 131/52
--- NOTE | 2018-05-05 14:36 | DS ---
CC: Dr. Cabrera* DISCHARGE SUMMARY: DATE OF ADMISSION: 03/01/18. DATE OF DISCHARGE: 05/05/18. HISTORY OF PRESENT ILLNESS: This 87-year-old man was admitted on 03/01/18. He had treatment for laryngeal cancer by Dr. Stubbs on 03/07/18. The patient underwent total laryngectomy on 04/17/18. The patient underwent dual-chamber pacemaker implantation for sick sinus syndrome and asystole by Dr. Rios. The patient had in part a lengthy stay because of difficulty arranging for all of his home care needs. He was quite weak and nutritional status was borderline at times; however, the patient was very anxious to go home. The last week in the hospital his oral intake generally is between 1300 and 1900 mL. The night before discharge he complained of abdominal pain which apparently had gone on for a couple of days. CT scan showed some thickening of the sigmoid colon with mild stranding around it. There was extensive diverticulosis. PHYSICAL EXAMINATION: On physical examination, the patient had minimal left lower quadrant tenderness. His abdomen was quite soft, bowel sounds are normal. He stated he had no pain at all at that time. He was eating normally. He was afebrile throughout the entire last few days of his hospital stay. His white count did go up a little bit to 11.6 on the morning of discharge. His renal function continued to improve. Creatinine was 1.48 on the day of discharge which is lower than it had been for over a month. The patient was started on treatment with amoxicillin clavulanate and metronidazole, the dose of the former being adjusted for his renal insufficiency. He is to have CBC and basic metabolic profile in 3 days as an outpatient. FINAL DIAGNOSES: 1. Laryngeal cancer, status post laryngectomy and tracheostomy. 2. Coronary artery disease. 3. Atrial fibrillation. 4. Sick sinus syndrome, status post pacemaker insertion. DISCHARGE MEDICATIONS: 1. Amiodarone 100 mg daily. 2. Amoxicillin clavulanate 500 mg b.i.d. for 10 days. 3. Bacitracin ointment t.i.d., p.r.n. 4. Metoprolol succinate 100 mg daily. 5. Metronidazole 500 mg t.i.d. for 10 days. 6. Nifedipine 30 mg at bedtime. 7. Senna 1 tablet daily p.r.n. 8. Lisinopril 10 mg at bedtime. 9. Isosorbide mononitrate 30 mg daily. 10. Cyanocobalamin 1 tablet daily. 11. Atorvastatin 40 mg at bedtime. 12. Aspirin 81 mg daily. 13. Amlodipine 5 mg daily. CONDITION ON DISCHARGE: Stable. DISPOSITION ON DISCHARGE: Discharged home. [id number]/[facility] #: [id number] MTDD
== END 2018-05-05 16:00 | disposition home or self-care (01) | DRG 11 ==
LOC: OR 09:45 → ICU 13:40 → SSU 03-10 15:32 → ICU 03-15 16:31 → MEDTELE 03-17 17:46 → MED 04-05 17:04 → ICU 04-12 23:17 → MEDTELE 04-17 19:49 → MED 05-03 18:46
PROVIDERS: ADMIT Otolaryngology; ATTEND Internal Medicine
PROC: 0CBS0ZX Excision of Larynx, Open Approach, Diagnostic (ICD-10-PCS; 2018-03-01)
PROC: 0B110F4 Bypass Trachea to Cutaneous with Tracheostomy Device, Open Approach (ICD-10-PCS; principal; 2018-03-01 13:15)
PROC: 0CTS0ZZ Resection of Larynx, Open Approach (ICD-10-PCS; 2018-03-07)
PROC: 0D9670Z Drainage of Stomach with Drainage Device, Via Natural or Artificial Opening (ICD-10-PCS; 2018-03-14)
PROC: 02HV33Z Insertion of Infusion Device into Superior Vena Cava, Percutaneous Approach (ICD-10-PCS; 2018-03-16)
PROC: 0BJ08ZZ Inspection of Tracheobronchial Tree, Via Natural or Artificial Opening Endoscopic (ICD-10-PCS; 2018-03-29)
PROC: 30233N1 Transfusion of Nonautologous Red Blood Cells into Peripheral Vein, Percutaneous Approach (ICD-10-PCS; 2018-04-12)
PROC: 4B02XSZ Measurement of Cardiac Pacemaker, External Approach (ICD-10-PCS; 2018-04-12)
PROC: 4A12XM4 Monitoring of Cardiac Stress, External Approach (ICD-10-PCS; 2018-04-14)
PROC: 0JH606Z Insertion of Pacemaker, Dual Chamber into Chest Subcutaneous Tissue and Fascia, Open Approach (ICD-10-PCS; 2018-04-17)
PROC: 02H63JZ Insertion of Pacemaker Lead into Right Atrium, Percutaneous Approach (ICD-10-PCS; 2018-04-17)
PROC: 02HK3JZ Insertion of Pacemaker Lead into Right Ventricle, Percutaneous Approach (ICD-10-PCS; 2018-04-17)
DX: C32.9 Malignant neoplasm of larynx, unspecified (principal); I46.9 Cardiac arrest, cause unspecified; I50.23 Acute on chronic systolic (congestive) heart failure; I21.4 Non-ST elevation (NSTEMI) myocardial infarction; I13.0 Hypertensive heart and chronic kidney disease with heart failure and stage 1 through stage 4 chronic kidney disease, or unspecified chronic kidney disease; E44.0 Moderate protein-calorie malnutrition; J95.01 Hemorrhage from tracheostomy stoma; I47.2 Ventricular tachycardia; I42.9 Cardiomyopathy, unspecified; R04.2 Hemoptysis; N17.9 Acute kidney failure, unspecified; I25.10 Atherosclerotic heart disease of native coronary artery without angina pectoris; K57.30 Diverticulosis of large intestine without perforation or abscess without bleeding; H90.5 Unspecified sensorineural hearing loss; E78.00 Pure hypercholesterolemia, unspecified; J38.4 Edema of larynx; I49.3 Ventricular premature depolarization; E78.5 Hyperlipidemia, unspecified; R54 Age-related physical debility; I48.2 Chronic atrial fibrillation; E11.51 Type 2 diabetes mellitus with diabetic peripheral angiopathy without gangrene; I25.5 Ischemic cardiomyopathy; E11.22 Type 2 diabetes mellitus with diabetic chronic kidney disease; Z68.22 Body mass index [BMI] 22.0-22.9, adult; N18.3 Chronic kidney disease, stage 3 (moderate); I08.1 Rheumatic disorders of both mitral and tricuspid valves; I27.20 Pulmonary hypertension, unspecified; Z85.828 Personal history of other malignant neoplasm of skin; Z95.5 Presence of coronary angioplasty implant and graft; Z95.0 Presence of cardiac pacemaker; Z79.82 Long term (current) use of aspirin; Z95.1 Presence of aortocoronary bypass graft; I25.2 Old myocardial infarction; Z87.891 Personal history of nicotine dependence; Z51.5 Encounter for palliative care; I44.0 Atrioventricular block, first degree; R94.31 Abnormal electrocardiogram [ECG] [EKG]; Y83.8 Other surgical procedures as the cause of abnormal reaction of the patient, or of later complication, without mention of misadventure at the time of the procedure; Y92.239 Unspecified place in hospital as the place of occurrence of the external cause; R11.10 Vomiting, unspecified; R10.9 Unspecified abdominal pain; D50.9 Iron deficiency anemia, unspecified
CPT/HCPCS: 33208; 36415; 36600; 71045; 71046; 71250; 74018; 74176; 74220; 78452; 80048; 80053; 81003; 81015; 82040; 82565; 82570; 82728; 82803; 82947; 83036; 83540; 83550; 83605; 83735; 83880; 84100; 84134; 84300; 84439; 84443; 84450; 84460; 84481; 84484; 84520; 85014; 85018; 85025; 85027; 85610; 85730; 86141; 86850; 86900; 86901; 86922; 87040; 87641; 88305; 88307; 88311; 88342; 92950; 93005; 93017; 93306; 94640; A9270-GY; A9502; C1751; C1785; C1892; C1898; G8978-GP-CH; G8978-GP-CI; G8978-GP-CJ; G8979-GP-CH; G8979-GP-CI; G8980-GP-CH; G8980-GP-CI; G8987-GO-CI; G8988-GO-CI; G8989-GO-CI; J0171; J0282; J0360; J0461; J0690; J1100; J1644; J1756; J1940; J2001; J2250; J2270; J2405; J2543; J2704; J2785; J2795; J2930; J3010; J3475; J3480; J3490; P9040; Q9967

== ENCOUNTER → 2018-08-25 09:58 | Day surgery (SDC) | payer MEDICARE, BC, OTHER ==
[~2018-08-25 09:58] MED LIST changes: +Bacitracin OINTMENT* 0.5% 0.5 oz TUBE ONE; +Dexamethasone IV* 4 MG/ML 1 ML (4 MG) ONE; -DiMENhydriNATE IV* 50 MG/ML VIAL IV PUSH PRN; +Famotidine IV* 10 MG/ML 2 ML (20 mg) ONE; +Lactated Ringers 1000 ML Bag* 1,000 ML IV SCH; -Levalbuterol 0.63MG/3ML NEB* UNIT OF USE INH PRN; +Lidocaine 1% w EPI 1:100,000* 30 ML VIAL ONE; +Lidocaine 2% PF * 5 ML VIAL ONE; +Lidocaine 4% TOPICAL* 50 ML TOP.SOLN ONE; -Morphine 4 MG/ML VIAL (1 ml) 4 MG/ML VIAL IV PRN; -Naloxone* 0.4 MG/ML 1 ML VIAL IV PRN; -Ondansetron TAB* 4 MG ONE; +Oxymetazoline 0.05% NASAL SPR* 15 ML BTL ONE; -PROCHLORPERAZINE INJ 5 MG/ML 2 ML VIAL IV PRN; +Phenylephrine 40 MCG/ML SYRINGE ONE; +Propofol* 10 MG/ML 20 ML BTL ONE; +ceFAZolin 2 GM in NS PREMIX(*) 2 GM/100 ML BAG IVPB ONE; -fentaNYL* 50 MCG/ML 2 ML VIAL (100 MCG VIAL) IV PRN; +metroNIDAZOLE IV 500 MG/100ML* 500 MG/100 ML BAG IVPB ONE
[2018-08-25 16:51] VITALS: BP 139/70
--- NOTE | 2018-08-25 21:48 | OP ---
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 OPERATIVE PROCEDURE: Stomatoplasty followed by a tracheoesophageal puncture prosthesis under general anesthesia. COMPLICATIONS: None. SPECIMENS: None. ESTIMATED BLOOD LOSS: None. DESCRIPTION OF PROCEDURE: The patient was taken to the operating room, placed in a supine position on the operating table. General anesthesia was induced and an endotracheal tube was placed through a stoma. His neck was prepped with Betadine and he was draped in a sterile fashion. What we found was that he had a lot of redundant skin along the inferior aspect and lateral aspect of his stoma that appeared to be being pulled in during inspiration. We injected this with 1% lidocaine with 1:100,000 epinephrine in an ellipse of skin off of his superior chest wall about at the sternal notch from mid right to mid left in a big smiley face type of configuration. We were able to suture the stoma down to secure it so that the skin was not redundant to allow this to happen. It was sutured with 3-0 Vicryl, simple interrupted vertical mattresses. Bacitracin ointment was placed. The TEP was then performed using the puncture set by [facility] for the Yanique-Arthur system. Esophagoscope was placed through the mouth into the esophagus so we can see the benefits officer the posterior wall of the esophagus. The puncture trocar was inserted into this and removed leaving the catheter, the insertion catheter was inserted through this and grasped from the mouth. A #10 16-Divehi Yanique-Arthur prosthesis had been inserted and was pulled into position and then left in place. The tail was taped to the skin. The patient tolerated this well. No complications. Transferred to the recovery room in stable condition. [id number]/[facility] #: [id number] MTDD
== END | disposition home or self-care (01) ==
LOC: OR 09:58
PROVIDERS: ATTEND Otolaryngology
DX: J95.03 Malfunction of tracheostomy stoma (principal); R49.1 Aphonia; I25.10 Atherosclerotic heart disease of native coronary artery without angina pectoris; I25.2 Old myocardial infarction; I42.9 Cardiomyopathy, unspecified; D51.0 Vitamin B12 deficiency anemia due to intrinsic factor deficiency; E11.9 Type 2 diabetes mellitus without complications; Z79.84 Long term (current) use of oral hypoglycemic drugs; J44.9 Chronic obstructive pulmonary disease, unspecified; Z95.1 Presence of aortocoronary bypass graft
CPT/HCPCS: A9270-GY; J0690; J1100; J2704; J3490; L8509

== ENCOUNTER → 2018-10-04 10:46 | Day surgery (SDC) | payer MEDICARE, BC, OTHER ==
--- NOTE | 2018-10-04 14:44 | OP ---
DATE OF OPERATION: 10/04/18 - [facility] DATE OF : [birth year] SURGEON: Chato Stubbs MD ANESTHESIA: None. 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 POST-OP DIAGNOSIS: Aphonia status post total laryngectomy requiring a tracheoesophageal puncture prosthesis. OPERATIVE PROCEDURE: Changing of his tracheoesophageal puncture prosthesis. DESCRIPTION OF PROCEDURE: The patient was in the same day local room and the old TEP was grasped and removed. I initially tried to insert a Yanique-Arthur #10 , 16-[place]e, but I could not get it through the opening. I then opened up a #8 Provox-2, what I was able to do is thread a red rubber catheter through the puncture into the esophagus. I then threaded the Provox-2 steel layout worker over the red rubber catheter, removed the red rubber catheter, inserted the Provox- 2 into the steel layout worker, and then was able to successfully insert the prosthesis and the tail was trimmed. The patient tolerated this without any complications. [id number]/[facility] #: [id number] [facility]
== END | disposition home or self-care (01) ==
LOC: OR 10:46
PROVIDERS: ATTEND Otolaryngology
DX: Z43.0 Encounter for attention to tracheostomy (principal); Z85.21 Personal history of malignant neoplasm of larynx; R49.1 Aphonia; I10 Essential (primary) hypertension; I25.10 Atherosclerotic heart disease of native coronary artery without angina pectoris

== ENCOUNTER → 2018-10-18 10:45 | Day surgery (SDC) | payer MEDICARE, BC, OTHER ==
[~2018-10-18 10:45] MED LIST changes: -Bacitracin OINTMENT* 0.5% 0.5 oz TUBE ONE; -Lidocaine 1% w EPI 1:100,000* 30 ML VIAL ONE; -Lidocaine 4% TOPICAL* 50 ML TOP.SOLN ONE; -Oxymetazoline 0.05% NASAL SPR* 15 ML BTL ONE; -Phenylephrine 40 MCG/ML SYRINGE ONE; +ROPIVACAINE 5 MG/ML 30 ML BTL (0.5%) ONE; +fentaNYL* 50 MCG/ML 2 ML VIAL (100 MCG VIAL) ONE
[2018-10-18 15:34] VITALS: BP 139/69
--- NOTE | 2018-10-18 22:04 | OP ---
DATE OF OPERATION: 10/18/18 - [facility] DATE OF : [birth year] SURGEON: Chato Stubbs MD. SALES MANAGER [place]: Dr. Orozco. PRE-OP DIAGNOSIS: Status post laryngectomy, aphonia with a tracheoesophageal puncture prosthesis that was malfunctioning. POST-OP DIAGNOSIS: Status post laryngectomy, aphonia with a tracheoesophageal puncture prosthesis that was malfunctioning. OPERATIVE PROCEDURE: Esophagoscopy and replacement of a tracheoesophageal puncture prosthesis. DESCRIPTION OF PROCEDURE: The patient has a TEP in place and he has not been able to use it. In the office, I saw some yellow stuff that seem to be blocking the esophageal aspect of the tracheoesophageal puncture prosthesis and I took him to the operating room to see if I can get this working. I performed a rigid esophagoscopy and again saw all those yellowish thick material that I suctioned out, grasped, and removed. It was blocking the inner flange of the tracheoesophageal puncture prosthesis. The prosthesis was grasped and removed and a TEP sizing apparatus was used to determine how big of a TEP to place and it measured out to be an 8, which I did have in there. The #8 Provox was placed and the insertion device inserted into the fistula without difficulty. We repeated the esophagoscopy to make sure we could see the inner flange and it looked like it was in good position. The tail was trimmed and the TEP was rotated into place. This was done under general anesthesia with the endotracheal tube through the stoma. The patient tolerated this well. No complications. Extubated uneventfully and transferred to the recovery room in stable condition. [id number]/[facility] #: [id number] MTDD
== END | disposition home or self-care (01) ==
LOC: OR 10:45
PROVIDERS: ATTEND Otolaryngology
DX: T85.698A Other mechanical complication of other specified internal prosthetic devices, implants and grafts, initial encounter (principal); R49.1 Aphonia; Z85.21 Personal history of malignant neoplasm of larynx; Z93.0 Tracheostomy status; I25.10 Atherosclerotic heart disease of native coronary artery without angina pectoris; Z95.0 Presence of cardiac pacemaker; E11.9 Type 2 diabetes mellitus without complications; Z79.84 Long term (current) use of oral hypoglycemic drugs; I48.91 Unspecified atrial fibrillation; E78.5 Hyperlipidemia, unspecified
CPT/HCPCS: J0690; J1100; J2704; J2795; J3010